=== PATIENT | female | born 1965 | race Caucasian/White ===

== ENCOUNTER 2020-02-05 10:53 | Emergency (ER) | payer MEDICARE, MEDICAID, SELFPAY ==
[2020-02-05 11:05] VITALS: BP 120/77; PULSE 95; RESP 18; TEMP 36.6; O2SAT 99; BMI 34.3
--- NOTE | 2020-02-05 11:25 | ED_ITS ---
HPI - General Adult General Chief complaint: General Medical Stated complaint: ?kidney pain Time Seen by Provider: 02/05/20 11:18 Source: patient Mode of arrival: ambulatory Limitations: no limitations History of Present Illness HPI narrative: 54 y/o female with history of poorly controlled DM on insulin, gastroparesis, depression, bipolar, anxiety, GERD, migraines presenting with foul smelling urine since yesterday and lower right sided back pain that started today. She is concerned about a kidney infection. She reports nausea and chronic diarrhea. No abdominal pain, no vomiting, no fever or chills at home. Related Data Previous Rx's Medication Instructions Recorded cefuroxime axetil 500 mg PO Q12H #14 tab 02/05/20 Allergies Allergy/AdvReac Type Severity Reaction Status Date / Time penicillin V Allergy Unknown Verified 10/08/19 00:00 Penicillins Allergy Unknown HIVES Unverified 01/03/20 15:42 Review of Systems Review of Systems: Constitutional: No Fever, No Chills ENT/Mouth: No sore throat, No Rhinorrhea, No Swallowing Difficulty Eyes: No Eye Pain, No Swelling, No Redness Cardiovascular: No Chest Pain, No SOB, No Orthopnea, No Edema Respiratory: No Cough, No Sputum, No Wheezing, No dyspnea Gastrointestinal: + Nausea, No Vomiting, + Diarrhea (chronically), No abdominal Pain, No Hematochezia, No Melena Genitourinary: + Dysuria, + Urinary Frequency, No Hematuria Musculoskeletal: No joint pain, + Myalgias (right back) Skin: No Skin Lesions, No rash Neuro: No Weakness, No Numbness, No Dizziness, No Headache Psych: No Anxiety/Panic, No Depression Heme/Lymph: No Bruising, No Lymphadenopathy Endocrine: + Polyuria, + Polydipsia [facility] [place] Past Medical History Attestation statement: The following information was validated with the patient. Medical History Anxiety Bipolar 1 disorder Depressed Diabetes 1.5, managed as type 1 Social History Social History Alcohol intake: never Smoking Status: Current every day smoker Substance Use Type: Marijuana Advance Directives: No Advance Directives Information Provided: No Physical Exam Vital Signs: Vital Signs: Vital Signs Temp Pulse Resp BP Pulse Ox 02/05/20 11:05 98 F 95 18 120/77 99 Body Mass Index 34.3 Appearance: Alert. Oriented X3. No acute distress. Eyes: Pupils equal, round and reactive to light. ENT: Pharynx normal. Neck: Normal inspection. Neck supple. CVS: Normal heart rate and rhythm. Pulses normal. Respiratory: No respiratory distress. Breath sounds normal. Abdomen: Soft and nontender. +BS x4 Back: +CVA tenderness on the right Skin: Skin warm and dry. Normal skin color. Normal skin turgor. No rashes. Extremities: No lower extremity edema. Neuro: Oriented X 3. No motor deficit. No sensory deficit. Course Course Course Narrative: patient appears well, non-toxic. she is afebrile. reporting foul smelling urine and low back pain. Possible pyelonephritis vs kidney stone with renal colic vs musculoskeletal pain of her back. UA shows UTI w/ hematuria. no leukocytosis. Renal U/S pending. IV rocephin ordered for now. No sepsis. Reevaluation(s) Reevaluation #1: U/S unremarkable. Rocephin given and tolerated well. Will give Rx for Ceftin. Stable for d/c home with plan to f/u with PCP this week. Medical Decision Making Lab Data Result diagrams: 02/05/20 11:36 02/05/20 11:36 Labs: Lab Results 02/05/20 02/05/20 02/05/20 Range/Units 11:12 11:36 11:36 WBC 10.0 (4.8-10.8) X10*3/uL RBC 4.28 (4.20-5.50) X10*6/uL Hgb 13.7 (12.0-16.0) g/dl Hct 40.9 (37-47) % MCV 95.6 (80-98) fL MCH 32.0 (27.0-33.0) pg MCHC 33.5 (31.0-35.0) g/dl RDW 12.3 (11.0-16.0) % Plt Count 195 (160-400) X10*3/uL MPV 12.1 (9.4-12.3) fL Immature Gran % (Auto) 0.4 (0.0-0.4) % Neut % (Auto) 62.8 (45-73) % Lymph % (Auto) 25.5 (20-40) % [place] % (Auto) 6.2 (2-11) % Eos % (Auto) 4.7 H (0-4) % Baso % (Auto) 0.4 (0-2) % Lymph # (Auto) 2.6 (1.2-4.9) X10*3/uL [place] # (Auto) 0.6 (0.1-1.2) X10*3/uL Eos # (Auto) 0.5 H (0.0-0.4) X10*3/uL Baso # (Auto) 0.0 (0.0-0.2) X10*3/uL Abs Immat Gran (auto) 0.04 H (0.00-0.03) X10*3/uL Absolute Neuts (auto) 6.3 (2.0-8.3) X10*3/uL Absolute Nucleated RBC 0.000 (0.0-0.012) X10*3/uL Nucleated RBC % (auto) 0.0 (0.0-0.2) /100WBC Sodium 134 L (135-145) mmol/L Potassium 4.1 (3.3-5.1) mmol/l Chloride 104 (96-108) mmol/L Carbon Dioxide 20 L (22-29) mmol/L Anion Gap 14 (12-20) BUN 15 (9-16) mg/dL Creatinine 0.93 (0.5-1.4) mg/dL Estim Creat Clear Calc 74.5 Estimated GFR > 60 Random Glucose 246 H (60-115) mg/dL Calcium 9.7 (8.4-10.2) mg/dL Total Bilirubin 0.3 (0.0-1.0) mg/dL Direct Bilirubin < 0.2 (0.0-0.5) mg/dL AST 19 (5-31) U/L ALT 19 (0-31) U/L Alkaline Phosphatase 110 (39-117) U/L Total Protein 7.2 (6.5-8.0) g/dL Albumin 3.8 (3.5-5.0) g/dL Urine Color YELLOW Urine Appearance HAZY Urine pH 5.5 (5.0-8.0) Ur Specific [place] >= 1.030 H (1.005-1.025) Urine Protein 1+ H (NEG-TRACE) MG/DL Urine Glucose (UA) NEG (NEG) MG/DL Urine Ketones NEG (NEG) MG/DL Urine Blood 2+ H (NEG) Urine Nitrite NEG (NEG) Ur Leukocyte Esterase 1+ H (NEG) Urine RBC 15-29 H (0) /HPF Urine WBC TNTC H (0-4) /HPF Ur Squamous Epith Cells 1+ /LPF Urine Bacteria 1+ /LPF Urine Mucus 1+ /LPF Discharge Plan Discharge Clinical Impression: Urinary tract infection Qualifiers: Urinary tract infection type: acute cystitis Hematuria presence: with hematuria Qualified Code(s): N30.01 - Acute cystitis with hematuria Patient Disposition: Home, Self-Care Instructions: Urinary Tract Infection in Women (ED) Additional Instructions: Stay hydrated. No sexual activity until all of your symptoms are resolved. If you develop increasing pain, fever, chills, persistent nausea or vomiting call 911 or come back to the ER for further evaluation. Follow up with your Primary Care Doctor this week. Prescriptions: New cefuroxime axetil 500 mg tablet 500 mg PO Q12H Qty: 14 RF: 0
--- NOTE | 2020-02-05 11:28 | US_ITS ---
EXAMINATION: US KIDNEYS CLINICAL INFORMATION: Right flank tenderness, dysuria. COMPARISON: Lumbar radiographs 05/13/2019, CT abdomen and pelvis with IV contrast 11/10/2018 TECHNIQUE: Real-time imaging of the right kidney as per request. FINDINGS: RIGHT KIDNEY: 11.9 x 3.9 x 6.7 cm (SAG x AP x TRV). There is normal renal parenchymal thickness and echogenicity. There is no hydronephrosis or caliectasis. No visible calculi. No perinephric fluid. There is a small cortical cyst medial mid to lower pole again seen measuring 1.4 cm, similar to CT 2019. IMPRESSION: 1. No right hydronephrosis or visible calculi. 2. Small cyst medial mid to lower pole 1.[address] 2019.
[2020-02-05 11:31] LABS: Glucose Urine UA NEG (NEG); Leukocyte Esterase Urine 1+ (NEG); Nitrite Urine NEG (NEG); PH 5.5 (5.0-8.0); Specific Gravity - Urine >= 1.030 (1.005-1.025); Urine Blood 2+ (NEG); Urine Ketones NEG (NEG); Urine Protein 1+ MG/DL (NEG-TRACE)
[2020-02-05] MEDS: 0.9 % Sodium Chloride 1,000 ML 999 ML IVCONT (11:37)
[2020-02-05 11:38] LABS: Appearance Urine HAZY; Color Urine YELLOW
[2020-02-05 11:42] LABS: MANUAL DIFF FLAG NO
[2020-02-05 11:43] LABS: Bacteria Urine 1+ /LPF; Mucus Urine 1+ /LPF; Squamous Epithelial Cell Urine 1+ /LPF; WBC Urine TNTC /HPF (0-4)
[2020-02-05 11:48] LABS: Basophils Percent Auto 0.4 % (0-2); Eosinophils Absolute Auto 0.5 X10*3/uL (0.0-0.4); Eosinophils Percent Auto 4.7 % (0-4); Hematocrit 40.9 % (37-47); Hemoglobin 13.7 g/dl (12.0-16.0); Imm Gran Abs Auto 0.04 X10*3/uL (0.00-0.03); Imm Gran Pct Auto 0.4 % (0.0-0.4); Lymphocytes Absolute Auto 2.6 X10*3/uL (1.2-4.9); Lymphocytes Percent Auto 25.5 % (20-40); Mean Corpuscular HGB Conc 33.5 g/dl (31.0-35.0); Mean Corpuscular Volume 95.6 fL (80-98); Mean Platelet Volume 12.1 fL (9.4-12.3); Monocytes Absolute Auto 0.6 X10*3/uL (0.1-1.2); Monocytes Percent Auto 6.2 % (2-11); Neutrophils Absolute Auto 6.3 X10*3/uL (2.0-8.3); Neutrophils Percent Auto 62.8 % (45-73); Platelet Count 195 X10*3/uL (160-400); Red Blood Count 4.28 X10*6/uL (4.20-5.50); Red Cell Distribution Width 12.3 % (11.0-16.0)
[2020-02-05] MEDS: Ketorolac Tromethamine 15 MG/ML VIAL IVPUSH (12:11)
[2020-02-05 12:12] LABS: Alanine Aminotransferase 19 U/L (0-31); Albumin Level 3.8 g/dL (3.5-5.0); Alkaline Phosphatase 110 U/L (39-117); Anion Gap 14 (12-20); Aspartate Amino Transferase 19 U/L (5-31); Bilirubin Direct < 0.2 mg/dL (0.0-0.5); Bilirubin Total 0.3 mg/dL (0.0-1.0); Blood Urea Nitrogen 15 mg/dL (9-16); Calcium 9.7 mg/dL (8.4-10.2); Carbon Dioxide 20 mmol/L (22-29); Chloride 104 mmol/L (96-108); Creatinine Clr Calc Pharmacy 74.5; Estimated Glomerular Filt Rate > 60; Glucose Random 246 mg/dL (60-115); Potassium 4.1 mmol/l (3.3-5.1); Sodium 134 mmol/L (135-145); Total Protein 7.2 g/dL (6.5-8.0)
[2020-02-05] MEDS: cefTRIAXone sodium 1 GM in 0.9 % Sodium Chloride 50 ML IV (12:12)
[2020-02-05 12:50] VITALS: BP 121/64; PULSE 78; RESP 17; O2SAT 98
== END 2020-02-05 12:51 | disposition home or self-care (01) ==
PROVIDERS: Physician Assistant; Emergency Provider Emergency Medicine; PCP Internal Medicine
DX: N30.01 Acute cystitis with hematuria (principal); E10.9 Type 1 diabetes mellitus without complications; F17.200 Nicotine dependence, unspecified, uncomplicated
CPT/HCPCS: 36415; 76775; 80048; 80076; 81001; 85025; 87086; 87088; 87186; 96361; 96365; 96374; 99284; J1885

== ENCOUNTER 2020-03-20 02:43 | Emergency (ER) | payer MEDICARE, MEDICAID, SELFPAY ==
[2020-03-20 02:49] VITALS: BP 142/80; BP 150/82; PULSE 81; PULSE 84; RESP 16; TEMP 36.8; O2SAT 98; BMI 36.0
--- NOTE | 2020-03-20 02:54 | ECG_ITS ---
Test Reason : NVD Blood Pressure : / mmHG Vent. Rate : 076 BPM Atrial Rate : 076 BPM P-R Int : 136 ms QRS Dur : 082 ms QT Int : 368 ms P-R-T Axes : 067 017 039 degrees QTc Int : 414 ms Sinus rhythm with occasional Premature ventricular complexes Otherwise normal ECG When compared with ECG of 07-SEP-2017 05:26, Premature ventricular complexes are now Present Referred By: Maame Barber Electronically Signed By:SUNITA ORTEGA MD
[2020-03-20 03:05] LABS: Glucose, Whole Blood 437 mg/dL (60-115)
[2020-03-20 03:25] LABS: MANUAL DIFF FLAG NO
[2020-03-20 03:30] LABS: Basophils Absolute Auto 0.1 X10*3/uL (0.0-0.2); Basophils Percent Auto 0.6 % (0-2); Eosinophils Absolute Auto 0.7 X10*3/uL (0.0-0.4); Eosinophils Percent Auto 6.6 % (0-4); Hematocrit 40.4 % (37-47); Hemoglobin 13.7 g/dl (12.0-16.0); Imm Gran Abs Auto 0.05 X10*3/uL (0.00-0.03); Imm Gran Pct Auto 0.5 % (0.0-0.4); Lymphocytes Absolute Auto 4.2 X10*3/uL (1.2-4.9); Lymphocytes Percent Auto 41.9 % (20-40); Mean Corpuscular HGB Conc 33.9 g/dl (31.0-35.0); Mean Corpuscular Volume 94.4 fL (80-98); Mean Platelet Volume 11.8 fL (9.4-12.3); Monocytes Absolute Auto 0.7 X10*3/uL (0.1-1.2); Monocytes Percent Auto 7.4 % (2-11); Neutrophils Absolute Auto 4.3 X10*3/uL (2.0-8.3); Platelet Count 224 X10*3/uL (160-400); Red Blood Count 4.28 X10*6/uL (4.20-5.50); Red Cell Distribution Width 12.4 % (11.0-16.0); White Blood Count 9.9 X10*3/uL (4.8-10.8)
[2020-03-20 03:46] LABS: Acetone, serum QL Negative (Negative)
[2020-03-20] MEDS: Acetaminophen 325 MG TABLET 975 MG PO (03:54)
[2020-03-20] MEDS: 0.9 % Sodium Chloride 2,000 ML 999 ML IV (03:55)
[2020-03-20 04:00] VITALS: PULSE 73; O2SAT 97
[2020-03-20 04:00] LABS: Alanine Aminotransferase 18 U/L (0-31); Albumin Level 3.8 g/dL (3.5-5.0); Alkaline Phosphatase 158 U/L (39-117); Anion Gap 16 (12-20); Aspartate Amino Transferase 20 U/L (5-31); Bilirubin Total 0.3 mg/dL (0.0-1.0); Blood Urea Nitrogen 23 mg/dL (9-16); Calcium 10.2 mg/dL (8.4-10.2); Carbon Dioxide 23 mmol/L (22-29); Chloride 99 mmol/L (96-108); Creatinine Clr Calc Pharmacy 61.9; Estimated Glomerular Filt Rate 49; Glucose Random 471 mg/dL (60-115); Lipase 37 U/L (8-78); Potassium 4.8 mmol/l (3.3-5.1); Sodium 133 mmol/L (135-145); Total Protein 7.5 g/dL (6.5-8.0)
--- NOTE | 2020-03-20 04:48 | ED_ITS ---
HPI - Headache General Chief Complaint: Headache Stated Complaint: n/v Time Seen by Provider: 03/20/20 02:53 Source: patient Mode of arrival: ambulatory Limitations: no limitations History of Present Illness HPI Narrative: This is a 54-year-old female with significant history insulin dependent diabetes presents with complaints of nausea, headache, but denies shortness of breath, chest pain / palpitations, abdominal pain, diarrhea, fevers, chills, recent travel and states that she knows her sugar is high becaus e she has been peeing a lot and is very thirsty. Related Data Previous Rx's Medication Instructions Recorded cefuroxime axetil 500 mg PO Q12H #14 tab 02/05/20 ciprofloxacin HCl [Cipro] 500 mg PO Q12H 7 Days #14 tab 03/20/20 Allergies Allergy/AdvReac Type Severity Reaction Status Date / Time penicillin V Allergy Unknown Hives Verified 03/20/20 04:02 Penicillins Allergy Unknown HIVES Unverified 01/03/20 15:42 Review of Systems Review of Systems: Pertinent positives and negatives as stated in HPI 10 point review of systems otherwise negative. PMFSH Past Medical History Source: nursing notes reviewed Medical History Anxiety Bipolar 1 disorder Depressed Diabetes 1.5, managed as type 1 Surgical History History of dental surgery History of partial hysterectomy Social History Social History Alcohol intake: never Smoking Status: Never smoker Use of substances other than those prescribed or required for medical reasons: No Substance Use Type: Marijuana Advance Directives: No Physical Exam Vital Signs: Vital Signs: Last Vital Signs Temp 98.2 F 03/20/20 02:49 Pulse 73 03/20/20 04:00 Resp 16 03/20/20 02:49 BP 142/80 H 03/20/20 02:49 Pulse Ox 97 03/20/20 04:00 Body Mass Index 36.0 VITAL SIGNS: Reviewed. GENERAL: Well developed, well nourished, in no acute distress. HEAD: Normocephalic/atraumatic, EYES: PERRLA, EOMI intact without pain, no nystagmus/pallor/icterus noted EARS: Ext canals without abnormality, TMs non-bulging and non-erythematous NOSE: Nares patent bilateral OROPHARYNX: no oral lesions noted, posterior pharynx clear and non-erythematous without noted tonsillar enlargement/erythema/exudates NECK: Supple, no adenopathy LUNGS: Normal breath sounds. No adventitious sounds or accessory muscle use. SpO2<97> CARDIOVASCULAR: Regular rate and rhythm without noted murmurs, no JVD or lower extremity edema. ABDOMEN: Soft, non-tender, non-distended with bowel sounds. No rigidity. No guarding. No palpable masses or hernias noted MUSCULOSKELETAL: No tenderness, deformities, or effusions noted on gross inspection. EXTREMITIES: No cyanosis, clubbing or edema. SKIN: Inspection of the skin reveals no rashes, ulcerations, jaundice, pallor, or petechiae. NEUROLOGIC: Alert and oriented x 4. Strength and sensation to light touch were grossly intact x 4. Course Course Course Narrative: This is a 54-year-old female with history and clinical presentation consistent with hyperglycemia and will rule out DKA /HHS as well as identifying a source of infection. Headache was successfully treated with a combination of Tylenol, Toradol, and IV fluids. On review of all investigations there is no evidence of DKA and noted mild hyponatremia is pseudohyponatremia secondary to hyperglycemia and mild AVI will be treated with 2 L of IV fluid and patient has a noted UTI which will be treated with a dose IV antibiotics here in the emergency department and then discharge on remaining oral medication. Repeat glucose is 330 and headache is completely resolved. Patient acknowledges that she will need to treat her glucose levels as per her regimen. MDM - Headache Lab Data Result diagrams: 03/20/20 03:18 03/20/20 03:18 Labs: Lab Results 03/20/20 03/20/20 03/20/20 Range/Units 02:53 03:18 03:18 WBC 9.9 (4.8-10.8) X10*3/uL RBC 4.28 (4.20-5.50) X10*6/uL Hgb 13.7 (12.0-16.0) g/dl Hct 40.4 (37-47) % MCV 94.4 (80-98) fL MCH 32.0 (27.0-33.0) pg MCHC 33.9 (31.0-35.0) g/dl RDW 12.4 (11.0-16.0) % Plt Count 224 (160-400) X10*3/uL MPV 11.8 (9.4-12.3) fL Immature Gran % (Auto) 0.5 H (0.0-0.4) % Neut % (Auto) 43.0 L (45-73) % Lymph % (Auto) 41.9 H (20-40) % [place] % (Auto) 7.4 (2-11) % Eos % (Auto) 6.6 H (0-4) % Baso % (Auto) 0.6 (0-2) % Lymph # (Auto) 4.2 (1.2-4.9) X10*3/uL [place] # (Auto) 0.7 (0.1-1.2) X10*3/uL Eos # (Auto) 0.7 H (0.0-0.4) X10*3/uL Baso # (Auto) 0.1 (0.0-0.2) X10*3/uL Abs Immat Gran (auto) 0.05 H (0.00-0.03) X10*3/uL Absolute Neuts (auto) 4.3 (2.0-8.3) X10*3/uL Absolute Nucleated RBC 0.000 (0.0-0.012) X10*3/uL Nucleated RBC % (auto) 0.0 (0.0-0.2) /100WBC Sodium 133 L (135-145) mmol/L Potassium 4.8 (3.3-5.1) mmol/l Chloride 99 (96-108) mmol/L Carbon Dioxide 23 (22-29) mmol/L Anion Gap 16 (12-20) BUN 23 H D (9-16) mg/dL Creatinine 1.15 (0.5-1.4) mg/dL Estim Creat Clear Calc 61.9 Estimated GFR 49 POC Glucose 437 H* (60-115) mg/dL Random Glucose 471 H* (60-115) mg/dL Calcium 10.2 (8.4-10.2) mg/dL Total Bilirubin 0.3 (0.0-1.0) mg/dL AST 20 (5-31) U/L ALT 18 (0-31) U/L Alkaline Phosphatase 158 H D (39-117) U/L Total Protein 7.5 (6.5-8.0) g/dL Albumin 3.8 (3.5-5.0) g/dL Lipase 37 (8-78) U/L Acetone, Qual Negative (Negative) 03/20/20 Range/Units 06:23 WBC (4.8-10.8) X10*3/uL RBC (4.20-5.50) X10*6/uL Hgb (12.0-16.0) g/dl Hct (37-47) % MCV (80-98) fL MCH (27.0-33.0) pg MCHC (31.0-35.0) g/dl RDW (11.0-16.0) % Plt Count (160-400) X10*3/uL MPV (9.4-12.3) fL Immature Gran % (Auto) (0.0-0.4) % Neut % (Auto) (45-73) % Lymph % (Auto) (20-40) % [place] % (Auto) (2-11) % Eos % (Auto) (0-4) % Baso % (Auto) (0-2) % Lymph # (Auto) (1.2-4.9) X10*3/uL [place] # (Auto) (0.1-1.2) X10*3/uL Eos # (Auto) (0.0-0.4) X10*3/uL Baso # (Auto) (0.0-0.2) X10*3/uL Abs Immat Gran (auto) (0.00-0.03) X10*3/uL Absolute Neuts (auto) (2.0-8.3) X10*3/uL Absolute Nucleated RBC (0.0-0.012) X10*3/uL Nucleated RBC % (auto) (0.0-0.2) /100WBC Sodium (135-145) mmol/L Potassium (3.3-5.1) mmol/l Chloride (96-108) mmol/L Carbon Dioxide (22-29) mmol/L Anion Gap (12-20) BUN (9-16) mg/dL Creatinine (0.5-1.4) mg/dL Estim Creat Clear Calc Estimated GFR POC Glucose 330 H (60-115) mg/dL Random Glucose (60-115) mg/dL Calcium (8.4-10.2) mg/dL Total Bilirubin (0.0-1.0) mg/dL AST (5-31) U/L ALT (0-31) U/L Alkaline Phosphatase (39-117) U/L Total Protein (6.5-8.0) g/dL Albumin (3.5-5.0) g/dL Lipase (8-78) U/L Acetone, Qual (Negative) ECG Data Attestation: I personally reviewed and interpreted this ECG as follows: Prior ECG tracings: not available for review Interpretation: Sinus rhythm with occasional PVC, HR - 76, no evidence of acute ischemia, OR/QRS/ QTC is within normal limits. Discharge Plan Discharge Clinical Impression: Hyperglycemia Headache Qualifiers: Headache type: unspecified Headache chronicity pattern: unspecified pattern Intractability: not intractable Qualified Code(s): R51.9 - Headache, unspecified UTI (urinary tract infection) Qualifiers: Urinary tract infection type: site unspecified Hematuria presence: with hematuria Qualified Code(s): N39.0 - Urinary tract infection, site not specified Patient Disposition: Home, Self-Care Instructions: Urinary Tract Infection in Women (ED), Diabetic Hyperglycemia (ED), General Headache (ED) Additional Instructions: 1. resume all home medications as prescribed. 2. Increase fluid hydration especially with water. 3. Tylenol 1000 mg, orally, every 6 hours as needed for headache control. Do not exceed 4000 mg within 24 hours. 4. please follow-up with your primary care provider by calling their office this morning and establishing an appointment. Prescriptions: New ciprofloxacin HCl [Cipro] 500 mg tablet 500 mg PO Q12H 7 Days Qty: 14 RF: 0 No Action cefuroxime axetil 500 mg tablet 500 mg PO Q12H Qty: 14 RF: 0 Referrals: Physician,Unknown [Primary Care Provider] - 2 days ( for re-evaluation of hyperglycemia and UTI.)
[2020-03-20] MEDS: Ketorolac Tromethamine 15 MG/ML VIAL IVPUSH (05:45)
[2020-03-20] MEDS: cefTRIAXone sodium 1 GM in 0.9 % Sodium Chloride 50 ML IV (05:45)
[2020-03-20 06:27] LABS: Glucose, Whole Blood 330 mg/dL (60-115)
[2020-03-20 06:45] VITALS: BP 131/64; PULSE 67; RESP 16; O2SAT 98
== END 2020-03-20 06:46 | disposition home or self-care (01) ==
PROVIDERS: Emergency Provider Student in an Organized Health Care Education/Training Program
DX: E10.65 Type 1 diabetes mellitus with hyperglycemia (principal); R51.9 Headache, unspecified; N39.0 Urinary tract infection, site not specified; R31.9 Hematuria, unspecified; Z79.4 Long term (current) use of insulin
CPT/HCPCS: 36415; 80053; 82009; 82947; 83690; 85025; 93005; 96361; 96365; 96375; 99284; J0696; J1885

== ENCOUNTER 2020-08-30 15:18 | Emergency (ER) | payer MEDICARE, MEDICAID, SELFPAY ==
[2020-08-30 15:29] VITALS: BP 131/67; PULSE 112; RESP 18; TEMP 36.9; O2SAT 99; BMI 34.3
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
--- NOTE | 2020-08-30 16:30 | PC.NURSE ---
iv removed from ems- 20g l hand, new one placed 20g r ac
[2020-08-30 16:34] LABS: Basophils Percent Auto 0.4 % (0-2); Eosinophils Absolute Auto 0.2 X10*3/uL (0.0-0.4); Eosinophils Percent Auto 2.1 % (0-4); Hematocrit 37.3 % (37-47); Hemoglobin 12.6 g/dl (12.0-16.0); Imm Gran Abs Auto 0.04 X10*3/uL (0.00-0.03); Imm Gran Pct Auto 0.5 % (0.0-0.4); Lymphocytes Absolute Auto 1.9 X10*3/uL (1.2-4.9); Lymphocytes Percent Auto 22.8 % (20-40); MANUAL DIFF FLAG NO; Mean Corpuscular HGB Conc 33.8 g/dl (31.0-35.0); Mean Corpuscular Hemoglobin 32.1 pg (27.0-33.0); Mean Corpuscular Volume 94.9 fL (80-98); Mean Platelet Volume 11.5 fL (9.4-12.3); Monocytes Absolute Auto 0.8 X10*3/uL (0.1-1.2); Monocytes Percent Auto 9.6 % (2-11); Neutrophils Absolute Auto 5.5 X10*3/uL (2.0-8.3); Neutrophils Percent Auto 64.6 % (45-73); Platelet Count 175 X10*3/uL (160-400); Red Blood Count 3.93 X10*6/uL (4.20-5.50); Red Cell Distribution Width 12.5 % (11.0-16.0); White Blood Count 8.5 X10*3/uL (4.8-10.8)
[2020-08-30 16:38] LABS: VBG Base Excess -5.1 mmol/L; VBG HCO3 20 mmol/L (22-26); VBG pCO2 38 mmHg; VBG pH 7.32 (7.32-7.43); VBG pO2 74 mmHg
[2020-08-30 16:40] LABS: Venous Blood Gas Refer to POC result
[2020-08-30 17:02] LABS: Ethanol < 10 mg/dL
[2020-08-30 17:12] LABS: Acetaminophen LAB < 1 mcg/mL (<30); Alanine Aminotransferase 15 U/L (0-31); Albumin Level 3.4 g/dL (3.5-5.0); Alkaline Phosphatase 140 U/L (39-117); Anion Gap 14 (12-20); Aspartate Amino Transferase 12 U/L (5-31); Bilirubin Total 0.3 mg/dL (0.0-1.0); Blood Urea Nitrogen 29 mg/dL (9-16); Calcium 9.5 mg/dL (8.4-10.2); Carbon Dioxide 20 mmol/L (22-29); Chloride 102 mmol/L (96-108); Creatinine Clr Calc Pharmacy 43.6; Estimated Glomerular Filt Rate 34; Glucose Random 533 mg/dL (60-115); Potassium 4.4 mmol/L (3.3-5.1); Salicylate < 5.0 mg/dL (15-30); Sodium 132 mmol/L (135-145); Total Protein 6.4 g/dL (6.5-8.0)
--- NOTE | 2020-08-30 18:09 | PC.NURSE ---
cynthia wilson made aware of med orders, plan to change orders.
[2020-08-30] MEDS: LORazepam 2 MG/ML VIAL 1 MG IVPUSH (18:17)
[2020-08-30] MEDS: Acetaminophen 325 MG TABLET 650 MG PO (18:17)
--- NOTE | 2020-08-30 18:18 | PC.NURSE ---
medicated per emar. hold lr and subcut insulin per regional agronomist katie. new order for ns and insulin subcut and iv to be orderd.
--- NOTE | 2020-08-30 18:21 | ED_ITS ---
HPI - General Adult General Chief complaint: General Medical Stated complaint: hyperglycemia Time Seen by Provider: 08/30/20 16:00 Source: patient Mode of arrival: EMS (Escorted by [place] [employer]) Limitations: no limitations Related Data Home Medications Medication Instructions Recorded Confirmed amitriptyline 50 mg PO BEDTIME 08/30/20 08/30/20 insulin aspart U-100 [Novolog 14 unit SUBCUT TID 08/30/20 08/30/20 Flexpen U-100 Insulin] insulin glargine [Lantus Solostar SUBCUT 08/30/20 U-100 Insulin] venlafaxine 75 mg PO BID 08/30/20 08/30/20 Allergies Allergy/AdvReac Type Severity Reaction Status Date / Time penicillin V Allergy Unknown Hives Verified 03/20/20 04:02 Penicillins Allergy Unknown HIVES Unverified 01/03/20 15:42 [facility] Past Medical History Medical History Anxiety Bipolar 1 disorder Depressed Diabetes 1.5, managed as type 1 Surgical History History of dental surgery History of partial hysterectomy Social History Social History Alcohol intake: never Smoking Status: Never smoker Use of substances other than those prescribed or required for medical reasons: No Substance Use Type: Marijuana Advance Directives: No Advance Directives Information Provided: No Patient : No Physical Exam Vital Signs: Vital Signs: Last Vital Signs Temp 98.4 F 08/30/20 15:29 Pulse 112 H 08/30/20 15:29 Resp 18 08/30/20 19:28 BP 131/67 08/30/20 15:29 Pulse Ox 99 08/30/20 15:29 Body Mass Index 34.3 Course Course Course Narrative: Sign-out from Aline Nice please refer to her note for full H&P. Patient's blood sugar is 533, I did cancel the 5 units subQ and ordered 10 units IV and 10 units subcu with a L of fluids. Will repeat POC. Corrected sodium is 139 based on a blood sugar of 533. 8:25 p.m. POC 192, patient is medically cleared for BHN consult. 12:24 a.m. physician observation started. BHN consult pending. Repeat BNP pending. Medical Decision Making Lab Data Result diagrams: 08/30/20 16:28 08/30/20 16:28 Labs: Lab Results 08/30/20 08/30/20 08/30/20 Range/Units 16:28 16:28 16:28 WBC 8.5 (4.8-10.8) X10*3/uL RBC 3.93 L (4.20-5.50) X10*6/uL Hgb 12.6 (12.0-16.0) g/dl Hct 37.3 (37-47) % MCV 94.9 (80-98) fL MCH 32.1 (27.0-33.0) pg MCHC 33.8 (31.0-35.0) g/dl RDW 12.5 (11.0-16.0) % Plt Count 175 (160-400) X10*3/uL MPV 11.5 (9.4-12.3) fL Immature Gran % (Auto) 0.5 H (0.0-0.4) % Neut % (Auto) 64.6 (45-73) % Lymph % (Auto) 22.8 (20-40) % [place] % (Auto) 9.6 (2-11) % Eos % (Auto) 2.1 (0-4) % Baso % (Auto) 0.4 (0-2) % Lymph # (Auto) 1.9 (1.2-4.9) X10*3/uL [place] # (Auto) 0.8 (0.1-1.2) X10*3/uL Eos # (Auto) 0.2 (0.0-0.4) X10*3/uL Baso # (Auto) 0.0 (0.0-0.2) X10*3/uL Abs Immat Gran (auto) 0.04 H (0.00-0.03) X10*3/uL Absolute Neuts (auto) 5.5 (2.0-8.3) X10*3/uL Absolute Nucleated RBC 0.000 (0.0-0.012) X10*3/uL Nucleated RBC % (auto) 0.0 (0.0-0.2) /100WBC VBG pH (7.32-7.43) VBG pCO2 mmHg VBG pO2 mmHg VBG HCO3 (22-26) mmol/L VBG O2 Saturation % VBG Base Excess mmol/L Sodium 132 L (135-145) mmol/L Potassium 4.4 (3.3-5.1) mmol/L Chloride 102 (96-108) mmol/L Carbon Dioxide 20 L (22-29) mmol/L Anion Gap 14 (12-20) BUN 29 H (9-16) mg/dL Creatinine 1.59 H (0.5-1.4) mg/dL Estim Creat Clear Calc 43.6 Estimated GFR 34 POC Glucose (60-115) mg/dL Random Glucose 533 H* (60-115) mg/dL Calcium 9.5 D (8.4-10.2) mg/dL Total Bilirubin 0.3 (0.0-1.0) mg/dL AST 12 (5-31) U/L ALT 15 (0-31) U/L Alkaline Phosphatase 140 H (39-117) U/L Total Protein 6.4 L (6.5-8.0) g/dL Albumin 3.4 L (3.5-5.0) g/dL Salicylates < 5.0 L (15-30) mg/dL Acetaminophen < 1 (<30) mcg/mL Ethyl Alcohol < 10 mg/dL 08/30/20 08/30/20 08/30/20 Range/Units 16:28 16:31 20:25 WBC (4.8-10.8) X10*3/uL RBC (4.20-5.50) X10*6/uL Hgb (12.0-16.0) g/dl Hct (37-47) % MCV (80-98) fL MCH (27.0-33.0) pg MCHC (31.0-35.0) g/dl RDW (11.0-16.0) % Plt Count (160-400) X10*3/uL MPV (9.4-12.3) fL Immature Gran % (Auto) (0.0-0.4) % Neut % (Auto) (45-73) % Lymph % (Auto) (20-40) % [place] % (Auto) (2-11) % Eos % (Auto) (0-4) % Baso % (Auto) (0-2) % Lymph # (Auto) (1.2-4.9) X10*3/uL [place] # (Auto) (0.1-1.2) X10*3/uL Eos # (Auto) (0.0-0.4) X10*3/uL Baso # (Auto) (0.0-0.2) X10*3/uL Abs Immat Gran (auto) (0.00-0.03) X10*3/uL Absolute Neuts (auto) (2.0-8.3) X10*3/uL Absolute Nucleated RBC (0.0-0.012) X10*3/uL Nucleated RBC % (auto) (0.0-0.2) /100WBC VBG pH 7.32 (7.32-7.43) VBG pCO2 38 mmHg VBG pO2 74 mmHg VBG HCO3 20 L (22-26) mmol/L VBG O2 Saturation 93.0 % VBG Base Excess -5.1 mmol/L Sodium Cancelled (135-145) mmol/L Potassium Cancelled (3.3-5.1) mmol/L Chloride Cancelled (96-108) mmol/L Carbon Dioxide Cancelled (22-29) mmol/L Anion Gap Cancelled (12-20) BUN Cancelled (9-16) mg/dL Creatinine Cancelled (0.5-1.4) mg/dL Estim Creat Clear Calc Cancelled Estimated GFR Cancelled POC Glucose 192 H (60-115) mg/dL Random Glucose Cancelled (60-115) mg/dL Calcium Cancelled (8.4-10.2) mg/dL Total Bilirubin (0.0-1.0) mg/dL AST (5-31) U/L ALT (0-31) U/L Alkaline Phosphatase (39-117) U/L Total Protein (6.5-8.0) g/dL Albumin (3.5-5.0) g/dL Salicylates (15-30) mg/dL Acetaminophen (<30) mcg/mL Ethyl Alcohol mg/dL 08/31/20 Range/Units 01:06 WBC (4.8-10.8) X10*3/uL RBC (4.20-5.50) X10*6/uL Hgb (12.0-16.0) g/dl Hct (37-47) % MCV (80-98) fL MCH (27.0-33.0) pg MCHC (31.0-35.0) g/dl RDW (11.0-16.0) % Plt Count (160-400) X10*3/uL MPV (9.4-12.3) fL Immature Gran % (Auto) (0.0-0.4) % Neut % (Auto) (45-73) % Lymph % (Auto) (20-40) % [place] % (Auto) (2-11) % Eos % (Auto) (0-4) % Baso % (Auto) (0-2) % Lymph # (Auto) (1.2-4.9) X10*3/uL [place] # (Auto) (0.1-1.2) X10*3/uL Eos # (Auto) (0.0-0.4) X10*3/uL Baso # (Auto) (0.0-0.2) X10*3/uL Abs Immat Gran (auto) (0.00-0.03) X10*3/uL Absolute Neuts (auto) (2.0-8.3) X10*3/uL Absolute Nucleated RBC (0.0-0.012) X10*3/uL Nucleated RBC % (auto) (0.0-0.2) /100WBC VBG pH (7.32-7.43) VBG pCO2 mmHg VBG pO2 mmHg VBG HCO3 (22-26) mmol/L VBG O2 Saturation % VBG Base Excess mmol/L Sodium (135-145) mmol/L Potassium (3.3-5.1) mmol/L Chloride (96-108) mmol/L Carbon Dioxide (22-29) mmol/L Anion Gap (12-20) BUN (9-16) mg/dL Creatinine (0.5-1.4) mg/dL Estim Creat Clear Calc Estimated GFR POC Glucose 152 H (60-115) mg/dL Random Glucose (60-115) mg/dL Calcium (8.4-10.2) mg/dL Total Bilirubin (0.0-1.0) mg/dL AST (5-31) U/L ALT (0-31) U/L Alkaline Phosphatase (39-117) U/L Total Protein (6.5-8.0) g/dL Albumin (3.5-5.0) g/dL Salicylates (15-30) mg/dL Acetaminophen (<30) mcg/mL Ethyl Alcohol mg/dL Discharge Plan Discharge Clinical Impression: Suicidal ideation, AVI (acute kidney injury), Hyperglycemia Prescriptions: No Action venlafaxine 75 mg capsule,extended release 24hr 75 mg PO BID RF: 0 amitriptyline 50 mg tablet 50 mg PO BEDTIME RF: 0 insulin aspart U-100 [Novolog Flexpen U-100 Insulin] 100 unit/mL (3 mL) i nsulin pen 14 unit subcut TID RF: 0 Lantus Solostar U-100 Insulin 100 unit/mL (3 mL) insulin pen subcut RF: 0
[2020-08-30] MEDS: Insulin Regular, Human 100 UNIT/ML 3 ML VIAL 10 UNIT IVPUSH (18:39)
[2020-08-30] MEDS: Insulin Regular, Human 100 UNIT/ML 3 ML VIAL 10 UNIT SUBCUT (18:39)
[2020-08-30] MEDS: 0.9 % Sodium Chloride 1,000 ML 999 ML IVCONT (18:39)
[2020-08-30 19:28] VITALS: RESP 18
[2020-08-30 20:31] LABS: Glucose, Whole Blood 192 mg/dL (60-115)
[2020-08-31] VITALS: BP 132/72; PULSE 87; RESP 16; TEMP 36.6; O2SAT 98
[2020-08-31 01:11] LABS: Glucose, Whole Blood 152 mg/dL (60-115)
[2020-08-31] MEDS: Venlafaxine HCl ER 75 MG CAP.ER.24H PO ×2 (01:58→08:24)
[2020-08-31] MEDS: 0.9 % Sodium Chloride 1,000 ML 999 ML IVCONT (01:58)
[2020-08-31] MEDS: Amitriptyline HCl 50 MG TABLET PO (01:58)
--- NOTE | 2020-08-31 02:00 | PC.NURSE ---
POC Glucose 152. Pt requested and given turkey sandwich, diet mattie guicho, and coffee. Pt is calm/cooperative/pleasant.
--- NOTE | 2020-08-31 02:30 | PC.NURSE ---
Per [facility] Law, BMP to be drawn after complete infusion of Normal Saline.
--- NOTE | 2020-08-31 03:45 | PC.NURSE ---
Normal saline infusing, but slowly. IV access is functional, but positional. Plan for repeat BMP upon fluids being infused.
[2020-08-31 05:45] LABS: Anion Gap 9 (12-20); Blood Urea Nitrogen 19 mg/dL (9-16); Calcium 8.8 mg/dL (8.4-10.2); Carbon Dioxide 23 mmol/L (22-29); Chloride 110 mmol/L (96-108); Creatinine Clr Calc Pharmacy 79.6; Estimated Glomerular Filt Rate > 60; Glucose Random 220 mg/dL (60-115); Potassium 4.3 mmol/L (3.3-5.1); Sodium 138 mmol/L (135-145)
[2020-08-31 07:31] LABS: Glucose, Whole Blood 198 mg/dL (60-115)
[2020-08-31] MEDS: Insulin Lispro 100 UNIT/ML 3 ML VIAL 14 UNIT SUBCUT ×2 (08:24→16:16)
[2020-08-31 08:30] VITALS: BP 110/60; PULSE 82; RESP 18; O2SAT 96
[2020-08-31 10:19] LABS: Glucose, Whole Blood 222 mg/dL (60-115)
[2020-08-31 10:24] VITALS: BP 126/66; PULSE 86; RESP 17; O2SAT 98
[2020-08-31 13:39] LABS: Amphetamine Screen Urine Not Detected (Not Detect); Barbiturates, Urine Not Detected (Not Detect); Benzodiazepines Screen Urine Not Detected (Not Detect); Cannabinoid Screen Urine Not Detected (Not Detect); Cocaine Screen Urine POSITIVE (Not Detect); Opiate Screen Urine Not Detected (Not Detect); Phencyclidine Screen Urine Not Detected (Not Detect)
[2020-08-31 14:29] LABS: Glucose, Whole Blood 229 mg/dL (60-115)
--- NOTE | 2020-08-31 15:28 | PC.NURSE ---
bhn at bedside.
== END 2020-08-31 18:41 | disposition home or self-care (01) ==
PROVIDERS: Nurse Practitioner Family; Physician Assistant; Emergency Provider Emergency Medicine; PCP Internal Medicine
DX: R45.851 Suicidal ideations (principal); E10.65 Type 1 diabetes mellitus with hyperglycemia; N17.9 Acute kidney failure, unspecified; F41.9 Anxiety disorder, unspecified; F32.9 Major depressive disorder, single episode, unspecified; F14.90 Cocaine use, unspecified, uncomplicated; F12.90 Cannabis use, unspecified, uncomplicated; Z79.4 Long term (current) use of insulin; Z79.899 Other long term (current) drug therapy
CPT/HCPCS: 36415; 80048; 80053; 80143; 80179; 80307; 80320; 82947; 85025; 96360; 96361; 96374; 96375; 99285; J2060

== ENCOUNTER 2020-09-17 19:11 | Outpatient (REF) | payer MEDICARE, MEDICAID, SELFPAY ==
--- NOTE | ~2020-09-17 | MR_ITS ---
EXAMINATION: MR LUMBAR SPINE WITHOUT CONTRAST CLINICAL INFORMATION: Radiculopathy. COMPARISON: None TECHNIQUE: MRI of the lumbar spine was obtained using routine sequences without contrast. FINDINGS: There is transitional lumbosacral anatomy with hypoplastic disc seen at L5-S1. The L5-S1 disc is seen on axial T2 series 5 image 33/35. The lumbar vertebral bodies maintain normal heights and alignment. There is disc desiccation at L3-L4 L4-L5 without significant disc height loss. No subchondral marrow edema is seen. The distal spinal cord appears normal. The conus medullaris terminates normally at the L1 level. The extraspinal soft tissues are within normal limits. SPINAL LEVELS: L1-L2: No posterior disc abnormality. No spinal canal or neural foraminal stenosis. L2-L3: No posterior disc abnormality. Moderate facet arthropathy. No spinal canal or neural foraminal stenosis. L3-L4: Disc bulging with moderate to severe facet arthropathy. Mild spinal canal stenosis. Mild bilateral neural foraminal stenosis with bulging disc seen abutting the exiting left L3 nerve root. L4-L5: Disc bulging with annular fissuring and moderate to severe facet arthropathy. Right subarticular stenosis. Right foraminal protrusion results in compression of the exiting right L4 nerve root. No left-sided nerve root compression. L5-S1: Hypoplastic disc. Disc bulging with osteophytic ridging with abutment of both extraforaminal L5 nerve root segments. 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 At L4-L5 there is right foraminal protrusion causing compression of the exiting right L4 nerve root. At L3-L4 there is mild bilateral neural foraminal stenosis with abutment of the exiting left L3 nerve root.
== END 2020-09-17 19:12 | disposition home or self-care (01) ==
LOC: HO.MRI 19:11
PROVIDERS: Visit Provider Internal Medicine
DX: M54.16 Radiculopathy, lumbar region (principal)
CPT/HCPCS: 72148

== ENCOUNTER 2020-10-26 03:47 | Emergency (ER) | payer MEDICARE, MEDICAID, SELFPAY ==
[2020-10-26 03:53] VITALS: BP 133/62; BP 136/84; PULSE 70; PULSE 90; RESP 18; TEMP 36.9; O2SAT 96; BMI 33.5
[2020-10-26 04:07] LABS: Glucose, Whole Blood 406 mg/dL (60-115)
--- NOTE | 2020-10-26 05:17 | ED.GENADULT ---
HPI - General Adult General Chief complaint: General Medical Stated complaint: hyperglycemia Time Seen by Provider: 10/26/20 05:05 History of Present Illness HPI narrative: 55-year-old female long history of diabetes currently on Lantus insulin 75 units Q evening. Also on regular insulin 14 units 3 times a day. Presented today with having elevated sugar in the 400 range. Patient denies any chest pain any diaphoresis any nausea any vomiting. Does have bilateral leg pain which is chronic in nature. Has a history of neuropathy. No chest pain. No coughing or congestion or upper respiratory symptoms. No pain on urination. Patient is from home. Last medication adjustment was made about 1 week ago at the time her insulin was changed from 65 units of Lantus q. evening to 75 units Q evening Related Data Home Medications Medication Instructions Recorded Confirmed amitriptyline 50 mg PO BEDTIME 08/30/20 08/30/20 insulin aspart U-100 [Novolog 14 unit SUBCUT TID 08/30/20 08/30/20 Flexpen U-100 Insulin] insulin glargine [Lantus Solostar SUBCUT 08/30/20 U-100 Insulin] venlafaxine 75 mg PO BID 08/30/20 08/30/20 Allergies Allergy/AdvReac Type Severity Reaction Status Date / Time penicillin V Allergy Unknown Hives Verified 08/31/20 04:40 Penicillins Allergy Unknown HIVES Verified 08/31/20 04:40 Review of Systems Review of Systems: Positive generalized malaise no chest pain or shortness breath no diaphoresis. Positive increased urinary frequency Yes all other systems are reviewed and are negative [facility] Past Medical History Attestation statement: The following information was validated with the patient. Medical History Anxiety Bipolar 1 disorder Depressed Diabetes 1.5, managed as type 1 Surgical History History of dental surgery History of partial hysterectomy Social History Social History Alcohol intake: never Substance Use Type: Marijuana Advance Directives: No Patient : No Physical Exam Vital Signs: Vital Signs: Last Vital Signs Temp 98.5 F 10/26/20 03:53 Pulse 67 10/26/20 05:32 Resp 18 10/26/20 05:32 BP 117/63 10/26/20 05:32 Pulse Ox 97 10/26/20 05:32 Body Mass Index 33.5 Appearance: Alert. Oriented X3. No acute distress. Eyes: Pupils equal, round and reactive to light. ENT: Pharynx normal. Neck: Normal inspection. Neck supple. No lymph nodes noted. No crepitus CVS: Normal heart rate and rhythm. Pulses normal. Normal S1 and S2 Respiratory: No respiratory distress. Breath sounds normal. No Wheezing. No rales Abdomen: Soft and nontender. No rigidity. No distention. good BS x4 Skin: Skin warm and dry. Normal skin color. Normal skin turgor. Extremities: No lower extremity edema. Neurovascular intact to all extremities. No Lacerations. No Rash Neuro: Oriented X 3. No motor deficit. No sensory deficit. Moving all extermities. No slurred speech Medical Decision Making MDM Narrative Medical decision making narrative: Patient's sugar over 400. Will give insulin, IV fluid. And monitor patient. Patient electrolytes did not show any evidence of diabetic ketoacidosis acetone was negative. Patient well appearing. Will discharge patient home when sugars down. Patient asked to take a very strict diabetic diet. Closely follow-up with primary on an outpatient basis. In stable condition. Lab Data Result diagrams: 10/26/20 05:41 10/26/20 05:41 Labs: Lab Results 10/26/20 10/26/20 10/26/20 Range/Units 04:02 05:40 05:41 WBC 8.2 (4.8-10.8) X10*3/uL RBC 4.19 L (4.20-5.50) X10*6/uL Hgb 13.4 (12.0-16.0) g/dl Hct 39.9 (37-47) % MCV 95.2 (80-98) fL MCH 32.0 (27.0-33.0) pg MCHC 33.6 (31.0-35.0) g/dl RDW 12.3 (11.0-16.0) % Plt Count 188 (160-400) X10*3/uL MPV 11.7 (9.4-12.3) fL Immature Gran % (Auto) 0.4 (0.0-0.4) % Neut % (Auto) 37.3 L (45-73) % Lymph % (Auto) 49.2 H (20-40) % [place] % (Auto) 7.6 (2-11) % Eos % (Auto) 5.0 H (0-4) % Baso % (Auto) 0.5 (0-2) % Lymph # (Auto) 4.0 (1.2-4.9) X10*3/uL [place] # (Auto) 0.6 (0.1-1.2) X10*3/uL Eos # (Auto) 0.4 (0.0-0.4) X10*3/uL Baso # (Auto) 0.0 (0.0-0.2) X10*3/uL Abs Immat Gran (auto) 0.03 (0.00-0.03) X10*3/uL Absolute Neuts (auto) 3.1 (2.0-8.3) X10*3/uL Absolute Nucleated RBC 0.000 (0.0-0.012) X10*3/uL Nucleated RBC % (auto) 0.0 (0.0-0.2) /100WBC VBG pH 7.39 (7.32-7.43) VBG pCO2 34 mmHg VBG pO2 112 mmHg VBG HCO3 21 L (22-26) mmol/L VBG O2 Saturation 99.0 % VBG Base Excess -2.9 mmol/L Sodium (135-145) mmol/L Potassium (3.3-5.1) mmol/L Chloride (96-108) mmol/L Carbon Dioxide (22-29) mmol/L Anion Gap (12-20) BUN (9-16) mg/dL Creatinine (0.5-1.4) mg/dL Estim Creat Clear Calc Estimated GFR POC Glucose 406 H* (60-115) mg/dL Random Glucose (60-115) mg/dL Calcium (8.4-10.2) mg/dL Total Bilirubin (0.0-1.0) mg/dL Direct Bilirubin (0.0-0.5) mg/dL AST (5-31) U/L ALT (0-31) U/L Alkaline Phosphatase (39-117) U/L Total Protein (6.5-8.0) g/dL Albumin (3.5-5.0) g/dL Acetone, Qual (Negative) 10/26/20 10/26/20 10/26/20 Range/Units 05:41 05:41 05:41 WBC (4.8-10.8) X10*3/uL RBC (4.20-5.50) X10*6/uL Hgb (12.0-16.0) g/dl Hct (37-47) % MCV (80-98) fL MCH (27.0-33.0) pg MCHC (31.0-35.0) g/dl RDW (11.0-16.0) % Plt Count (160-400) X10*3/uL MPV (9.4-12.3) fL Immature Gran % (Auto) (0.0-0.4) % Neut % (Auto) (45-73) % Lymph % (Auto) (20-40) % [place] % (Auto) (2-11) % Eos % (Auto) (0-4) % Baso % (Auto) (0-2) % Lymph # (Auto) (1.2-4.9) X10*3/uL [place] # (Auto) (0.1-1.2) X10*3/uL Eos # (Auto) (0.0-0.4) X10*3/uL Baso # (Auto) (0.0-0.2) X10*3/uL Abs Immat Gran (auto) (0.00-0.03) X10*3/uL Absolute Neuts (auto) (2.0-8.3) X10*3/uL Absolute Nucleated RBC (0.0-0.012) X10*3/uL Nucleated RBC % (auto) (0.0-0.2) /100WBC VBG pH (7.32-7.43) VBG pCO2 mmHg VBG pO2 mmHg VBG HCO3 (22-26) mmol/L VBG O2 Saturation % VBG Base Excess mmol/L Sodium 135 (135-145) mmol/L Potassium 4.1 (3.3-5.1) mmol/L Chloride 102 (96-108) mmol/L Carbon Dioxide 24 (22-29) mmol/L Anion Gap 13 (12-20) BUN 21 H (9-16) mg/dL Creatinine 1.08 (0.5-1.4) mg/dL Estim Creat Clear Calc 62.6 Estimated GFR 52 POC Glucose (60-115) mg/dL Random Glucose 433 H* (60-115) mg/dL Calcium 10.1 D (8.4-10.2) mg/dL Total Bilirubin 0.3 (0.0-1.0) mg/dL Direct Bilirubin < 0.2 (0.0-0.5) mg/dL AST 10 (5-31) U/L ALT 10 (0-31) U/L Alkaline Phosphatase 144 H (39-117) U/L Total Protein 6.6 (6.5-8.0) g/dL Albumin 3.5 (3.5-5.0) g/dL Acetone, Qual Negative (Negative) Discharge Plan Discharge Clinical Impression: Acute hyperglycemia Patient Disposition: Home, Self-Care Instructions: Diabetic Hyperglycemia (ED) Prescriptions: No Action venlafaxine 75 mg capsule,extended release 24hr 75 mg PO BID RF: 0 amitriptyline 50 mg tablet 50 mg PO BEDTIME RF: 0 insulin aspart U-100 [Novolog Flexpen U-100 Insulin] 100 unit/mL (3 mL) insulin pen 14 unit subcut TID RF: 0 Lantus Solostar U-100 Insulin 100 unit/mL (3 mL) insulin pen subcut RF: 0 Referrals: Physician,Unknown [Primary Care Provider] - 2 days (Please follow a strict diabetic diet. Closely follow-up with your primary physician for additional insulin adjustment.)
[2020-10-26 05:32] VITALS: BP 117/63; PULSE 67; RESP 18; O2SAT 97
[2020-10-26 05:46] LABS: Basophils Percent Auto 0.5 % (0-2); Eosinophils Absolute Auto 0.4 X10*3/uL (0.0-0.4); Hematocrit 39.9 % (37-47); Hemoglobin 13.4 g/dl (12.0-16.0); Imm Gran Abs Auto 0.03 X10*3/uL (0.00-0.03); Imm Gran Pct Auto 0.4 % (0.0-0.4); Lymphocytes Percent Auto 49.2 % (20-40); MANUAL DIFF FLAG NO; Mean Corpuscular HGB Conc 33.6 g/dl (31.0-35.0); Mean Corpuscular Volume 95.2 fL (80-98); Mean Platelet Volume 11.7 fL (9.4-12.3); Monocytes Absolute Auto 0.6 X10*3/uL (0.1-1.2); Monocytes Percent Auto 7.6 % (2-11); Neutrophils Absolute Auto 3.1 X10*3/uL (2.0-8.3); Neutrophils Percent Auto 37.3 % (45-73); Platelet Count 188 X10*3/uL (160-400); Red Blood Count 4.19 X10*6/uL (4.20-5.50); Red Cell Distribution Width 12.3 % (11.0-16.0); White Blood Count 8.2 X10*3/uL (4.8-10.8)
[2020-10-26 05:47] LABS: Venous Blood Gas Refer to POC result
[2020-10-26 05:49] LABS: VBG Base Excess -2.9 mmol/L; VBG HCO3 21 mmol/L (22-26); VBG pCO2 34 mmHg; VBG pH 7.39 (7.32-7.43); VBG pO2 112 mmHg
[2020-10-26 05:59] LABS: Acetone, serum QL Negative (Negative)
[2020-10-26 06:07] LABS: Glucose Random 433 mg/dL (60-115)
[2020-10-26 06:08] LABS: Alanine Aminotransferase 10 U/L (0-31); Albumin Level 3.5 g/dL (3.5-5.0); Alkaline Phosphatase 144 U/L (39-117); Anion Gap 13 (12-20); Aspartate Amino Transferase 10 U/L (5-31); Bilirubin Direct < 0.2 mg/dL (0.0-0.5); Bilirubin Total 0.3 mg/dL (0.0-1.0); Blood Urea Nitrogen 21 mg/dL (9-16); Calcium 10.1 mg/dL (8.4-10.2); Carbon Dioxide 24 mmol/L (22-29); Chloride 102 mmol/L (96-108); Creatinine Clr Calc Pharmacy 62.6; Estimated Glomerular Filt Rate 52; Potassium 4.1 mmol/L (3.3-5.1); Sodium 135 mmol/L (135-145); Total Protein 6.6 g/dL (6.5-8.0)
[2020-10-26] MEDS: 0.9 % Sodium Chloride 1,000 ML 999 ML IV (06:16)
[2020-10-26] MEDS: Insulin Regular, Human 100 UNIT/ML 3 ML VIAL IVPUSH (06:16)
[2020-10-26 06:41] LABS: Glucose, Whole Blood 334 mg/dL (60-115)
== END 2020-10-26 07:00 | disposition home or self-care (01) ==
PROVIDERS: Emergency Provider Emergency Medicine Emergency Medical Services
DX: E13.65 Other specified diabetes mellitus with hyperglycemia (principal); Z79.4 Long term (current) use of insulin
CPT/HCPCS: 36415; 80048; 80076; 82009; 82947; 85025; 96361; 96374; 99284

== ENCOUNTER 2020-12-13 04:12 | Emergency (ER) | payer MEDICARE, MEDICAID, SELFPAY ==
--- NOTE | ~2020-12-13 | XR_ITS ---
EXAMINATION: XR CHEST CLINICAL INFORMATION: Chest pain COMPARISON: 03/24/2016 TECHNIQUE: Frontal view of the chest was obtained. FINDINGS: The lungs are clear with no focal consolidation. No evidence of pneumothorax, pulmonary edema, or pleural effusions. The cardiomediastinal silhouette is unremarkable. No acute osseous findings. XR/XR chest 1V IMPRESSION: No acute cardiopulmonary findings.
[2020-12-13 04:21] VITALS: BP 127/67; PULSE 88; RESP 18; TEMP 36.9; O2SAT 96; BMI 32.5
[2020-12-13 04:32] LABS: Glucose, Whole Blood 322 mg/dL (60-115)
--- NOTE | 2020-12-13 04:47 | ECG_ITS ---
Test Reason : CHEST PAIN Blood Pressure : / mmHG Vent. Rate : 083 BPM Atrial Rate : 083 BPM P-R Int : 140 ms QRS Dur : 086 ms QT Int : 370 ms P-R-T Axes : 065 -01 026 degrees QTc Int : 434 ms Normal sinus rhythm Normal ECG When compared with ECG of 20-MAR-2020 03:28, Premature ventricular complexes are no longer Present Referred By: Generic ED Physician Electronically Signed By:JAVY ODONNELL
[2020-12-13 05:06] LABS: MANUAL DIFF FLAG NO
[2020-12-13 05:08] LABS: Basophils Percent Auto 0.3 % (0-2); Eosinophils Absolute Auto 0.3 X10*3/uL (0.0-0.4); Eosinophils Percent Auto 2.6 % (0-4); Hematocrit 39.9 % (37-47); Hemoglobin 13.9 g/dl (12.0-16.0); Imm Gran Abs Auto 0.03 X10*3/uL (0.00-0.03); Imm Gran Pct Auto 0.3 % (0.0-0.4); Lymphocytes Absolute Auto 3.5 X10*3/uL (1.2-4.9); Lymphocytes Percent Auto 36.8 % (20-40); Mean Corpuscular HGB Conc 34.8 g/dl (31.0-35.0); Mean Corpuscular Hemoglobin 32.3 pg (27.0-33.0); Mean Corpuscular Volume 92.8 fL (80-98); Mean Platelet Volume 11.9 fL (9.4-12.3); Monocytes Absolute Auto 0.8 X10*3/uL (0.1-1.2); Monocytes Percent Auto 8.4 % (2-11); Neutrophils Absolute Auto 4.9 X10*3/uL (2.0-8.3); Neutrophils Percent Auto 51.6 % (45-73); Platelet Count 173 X10*3/uL (160-400); Red Cell Distribution Width 12.4 % (11.0-16.0); White Blood Count 9.5 X10*3/uL (4.8-10.8)
[2020-12-13] MEDS: Acetaminophen 325 MG TABLET PO (05:27)
[2020-12-13] MEDS: Acetaminophen 325 MG TABLET 650 MG PO (05:27)
[2020-12-13 05:44] LABS: Influenza A PCR NEGATIVE (Negative); Influenza B PCR NEGATIVE (Negative); Resp Syncy Virus RNA Qual PCR NEGATIVE (Negative); SARS COV2 PCR INHOUSE NEGATIVE (Negative)
[2020-12-13 05:50] LABS: Anion Gap 13 (12-20); Blood Urea Nitrogen 19 mg/dL (9-16); Calcium 10.6 mg/dL (8.4-10.2); Carbon Dioxide 24 mmol/L (22-29); Chloride 103 mmol/L (96-108); Creatinine Clr Calc Pharmacy 57.5; Estimated Glomerular Filt Rate 48; Glucose Random 308 mg/dL (60-115); Potassium 4.4 mmol/L (3.3-5.1); Sodium 136 mmol/L (135-145)
[2020-12-13 05:56] LABS: Troponin-I High Sensitivity 6.7 ng/L (<3.5-17.0)
[2020-12-13] MEDS: Benzonatate 100 MG CAPSULE PO (05:59)
[2020-12-13] MEDS: Ketorolac Tromethamine 15 MG/ML VIAL IVPUSH (05:59)
--- NOTE | 2020-12-13 06:19 | ED.CHESTPAIN ---
HPI - Chest Pain General Chief Complaint: Chest Pain Stated Complaint: CP/Cough Time Seen by Provider: 12/13/20 05:50 Source: patient Mode of arrival: ambulatory History of Present Illness HPI narrative: 55-year-old female with history of diabetes and asthma states that she has been having increased cough without phlegm production and subsequently developed central chest pain without radiation and otherwise denies shortness of breath, dizziness, nausea, urinary symptoms. Patient does describe headache as well as nasal congestion with sore throat. Related Data Home Medications Medication Instructions Recorded Confirmed amitriptyline 50 mg tablet 50 mg PO BEDTIME 08/30/20 08/30/20 insulin aspart U-100 100 unit/mL 14 unit SUBCUT TID 08/30/20 08/30/20 (3 mL) subcutaneous pen (Novolog Flexpen U-100 Insulin aspart) insulin glargine 100 unit/mL (3 SUBCUT 08/30/20 mL) subcutaneous pen (Lantus Solostar U-100 Insulin) venlafaxine 75 mg capsule,extended 75 mg PO BID 08/30/20 08/30/20 release 24 hr Allergies Allergy/AdvReac Type Severity Reaction Status Date / Time penicillin V Allergy Unknown Hives Verified 08/31/20 04:40 Penicillins Allergy Unknown HIVES Verified 08/31/20 04:40 Review of Systems Review of Systems: Pertinent positives and negatives as stated in HPI 10 point review of systems is otherwise negative. [facility] Past Medical History Source: nursing notes reviewed Medical History Anxiety Bipolar 1 disorder Depressed Diabetes 1.5, managed as type 1 Surgical History History of dental surgery History of partial hysterectomy Social History Social History Alcohol intake: never Substance Use Type: Marijuana Advance Directives: No Advance Directives Information Provided: No Patient : No Physical Exam Vital Signs: Vital Signs: Last Vital Signs Temp 98.4 F 12/13/20 04:21 Pulse 88 12/13/20 04:21 Resp 16 12/13/20 06:41 BP 127/67 12/13/20 04:21 Pulse Ox 96 12/13/20 04:21 Body Mass Index 32.5 VITAL SIGNS: Reviewed. GENERAL: Well developed, well nourished, in no acute distress. HEAD: Normocephalic/atraumatic EYES: PERRLA, EOMI EARS: Ext canals without abnormality, TMs non-bulging and non-erythematous NOSE: Nares patent bilateral OROPHARYNX: no oral lesions noted, posterior pharynx clear NECK: Supple, no adenopathy LUNGS: Normal breath sounds. No adventitious sounds or accessory muscle use. SpO2<96> CARDIOVASCULAR: Regular rate and rhythm without noted murmurs, no JVD or lower extremity edema. ABDOMEN: Soft, non-tender, non-distended with bowel sounds. MUSCULOSKELETAL: No tenderness, deformities, or effusions noted on gross inspection. EXTREMITIES: No cyanosis, clubbing or edema. SKIN: Inspection of the skin reveals no rashes, ulcerations, jaundice, pallor, or petechiae. NEUROLOGIC: Alert and oriented x 4. Strength and sensation to light touch were grossly intact x 4. Course Course Course Narrative: 55-year-old female with history and clinical presentation consistent with viral syndrome no finding suggestive asthma exacerbation. Patient provided with combination analgesics as well as cough medication and albuterol. On re-evaluation patient reports she is feeling much better and review of all investigations without acute findings other than mild hyperglycemia without evidence of DKA or HHS. High sensitivity troponin below detectable is not elevated and EKG is without acute findings. HEART Score:2 Given patient's history of diabetes will repeat the high sensitivity troponin but as long as there is no increase patient is a state discharged to home with follow-up on Tuesday with her primary care provider. MDM - Chest Pain Lab Data Result diagrams: 12/13/20 05:00 12/13/20 05:01 Labs: Lab Results 12/13/20 12/13/20 12/13/20 Range/Units 04:27 05:00 05:00 WBC 9.5 (4.8-10.8) X10*3/uL RBC 4.30 (4.20-5.50) X10*6/uL Hgb 13.9 (12.0-16.0) g/dl Hct 39.9 (37-47) % MCV 92.8 (80-98) fL MCH 32.3 (27.0-33.0) pg MCHC 34.8 (31.0-35.0) g/dl RDW 12.4 (11.0-16.0) % Plt Count 173 (160-400) X10*3/uL MPV 11.9 (9.4-12.3) fL Immature Gran % (Auto) 0.3 (0.0-0.4) % Neut % (Auto) 51.6 (45-73) % Lymph % (Auto) 36.8 (20-40) % [place] % (Auto) 8.4 (2-11) % Eos % (Auto) 2.6 (0-4) % Baso % (Auto) 0.3 (0-2) % Lymph # (Auto) 3.5 (1.2-4.9) X10*3/uL [place] # (Auto) 0.8 (0.1-1.2) X10*3/uL Eos # (Auto) 0.3 (0.0-0.4) X10*3/uL Baso # (Auto) 0.0 (0.0-0.2) X10*3/uL Abs Immat Gran (auto) 0.03 (0.00-0.03) X10*3/uL Absolute Neuts (auto) 4.9 (2.0-8.3) X10*3/uL Absolute Nucleated RBC 0.000 (0.0-0.012) X10*3/uL Nucleated RBC % (auto) 0.0 (0.0-0.2) /100WBC Sodium (135-145) mmol/L Potassium (3.3-5.1) mmol/L Chloride (96-108) mmol/L Carbon Dioxide (22-29) mmol/L Anion Gap (12-20) BUN (9-16) mg/dL Creatinine (0.5-1.4) mg/dL Estim Creat Clear Calc Estimated GFR POC Glucose 322 H (60-115) mg/dL Random Glucose (60-115) mg/dL Calcium (8.4-10.2) mg/dL Troponin I High Sens (<3.5-17.0) ng/L Coronavirus (PCR) NEGATIVE (Negative) Influenza Type A (PCR) NEGATIVE (Negative) Influenza Type B (PCR) NEGATIVE (Negative) RSV RNA Qual (PCR) NEGATIVE (Negative) 08/28/21 08/28/21 Range/Units 05:00 05:01 WBC (4.8-10.8) X10*3/uL RBC (4.20-5.50) X10*6/uL Hgb (12.0-16.0) g/dl Hct (37-47) % MCV (80-98) fL MCH (27.0-33.0) pg MCHC (31.0-35.0) g/dl RDW (11.0-16.0) % Plt Count (160-400) X10*3/uL MPV (9.4-12.3) fL Immature Gran % (Auto) (0.0-0.4) % Neut % (Auto) (45-73) % Lymph % (Auto) (20-40) % [place] % (Auto) (2-11) % Eos % (Auto) (0-4) % Baso % (Auto) (0-2) % Lymph # (Auto) (1.2-4.9) X10*3/uL [place] # (Auto) (0.1-1.2) X10*3/uL Eos # (Auto) (0.0-0.4) X10*3/uL Baso # (Auto) (0.0-0.2) X10*3/uL Abs Immat Gran (auto) (0.00-0.03) X10*3/uL Absolute Neuts (auto) (2.0-8.3) X10*3/uL Absolute Nucleated RBC (0.0-0.012) X10*3/uL Nucleated RBC % (auto) (0.0-0.2) /100WBC Sodium 136 (135-145) mmol/L Potassium 4.4 (3.3-5.1) mmol/L Chloride 103 (96-108) mmol/L Carbon Dioxide 24 (22-29) mmol/L Anion Gap 13 (12-20) BUN 19 H (9-16) mg/dL Creatinine 1.16 (0.5-1.4) mg/dL Estim Creat Clear Calc 57.5 Estimated GFR 48 POC Glucose (60-115) mg/dL Random Glucose 308 H (60-115) mg/dL Calcium 10.6 H (8.4-10.2) mg/dL Troponin I High Sens 6.7 (<3.5-17.0) ng/L Coronavirus (PCR) (Negative) Influenza Type A (PCR) (Negative) Influenza Type B (PCR) (Negative) RSV RNA Qual (PCR) (Negative) ECG Data ECG #1: Attestation: I personally reviewed and interpreted this ECG as follows: Prior ECG tracings: available for review (03/20/2020 no acute changes on comparison) Interpretation: Normal sinus rhythm, HR-83, no STEMI, TX/QRS/QTC are within normal limits. Discharge Plan Discharge Clinical Impression: Atypical chest pain, Viral syndrome, Asthma Patient Disposition: Home, Self-Care Instructions: Viral Syndrome (ED), Asthma (ED) Additional Instructions: 1. Resume all home medications as prescribed. 2. Recommend [id number] Tylenol/ibuprofen as needed for symptomatic relief of your viral symptoms. 3. Increase fluid hydration especially with water. 4. It is very important for you to continue to use your albuterol inhaler consistently over the next 24-48 hours. 5. Please follow-up with your primary care provider on Tuesday for re-evaluation and further outpatient management. Return to the ED for any acute worsening of your symptoms. Prescriptions: No Action venlafaxine 75 mg capsule,extended release 24hr 75 mg PO BID RF: 0 amitriptyline 50 mg tablet 50 mg PO BEDTIME RF: 0 insulin aspart U-100 [Novolog Flexpen U-100 Insulin] 100 unit/mL (3 mL) insulin pen 14 unit subcut TID RF: 0 Lantus Solostar U-100 Insulin 100 unit/mL (3 mL) insulin pen subcut RF: 0 Referrals: Physician,Unknown [Primary Care Provider] - 2 days
[2020-12-13] MEDS: Albuterol Sulfate 90 MCG 8 GM INHALER 4 PUFF INHALE (06:35)
[2020-12-13 06:41] VITALS: RESP 16
[2020-12-13 08:39] LABS: Troponin-I High Sensitivity 6.2 ng/L (<3.5-17.0)
[2020-12-13 08:54] VITALS: BP 120/66; PULSE 88; RESP 19; O2SAT 97
== END 2020-12-13 09:41 | disposition home or self-care (01) ==
PROVIDERS: Emergency Provider Student in an Organized Health Care Education/Training Program
DX: R07.89 Other chest pain (principal); B34.9 Viral infection, unspecified; Z20.822 Contact with and (suspected) exposure to COVID-19; J45.909 Unspecified asthma, uncomplicated; R51.9 Headache, unspecified; J02.9 Acute pharyngitis, unspecified; E13.9 Other specified diabetes mellitus without complications; F31.9 Bipolar disorder, unspecified; Z79.4 Long term (current) use of insulin; Z79.899 Other long term (current) drug therapy
CPT/HCPCS: 0241U; 36415; 71045; 80048; 82947; 84484; 85025; 93005; 96374; 99284; J1885

== ENCOUNTER → 2021-04-16 09:52 | Outpatient (BNVA) | payer MEDICARE, MEDICAID, SELFPAY | PROVIDERS: PCP Internal Medicine; Visit Provider Nurse Practitioner Gerontology | CPT/HCPCS: Q3014 ==

== ENCOUNTER 2021-07-11 11:48 | Emergency (ER) | payer MEDICARE, MEDICAID, SELFPAY ==
--- NOTE | ~2021-07-11 | US_ITS ---
EXAMINATION: US VENOUS ULTRASOUND WITH DOPPLER LOWER EXTREMITY, RIGHT CLINICAL INFORMATION: Right leg pain. History of DVT. COMPARISON: Previous exams most recent August 2018 TECHNIQUE: Ultrasound of the deep veins is performed from the hip to the calf with compression sonography and color and pulse Doppler assessment. Spectral analysis with color-flow imaging is performed. FINDINGS: There is normal venous compression and respiratory variation and augmented flow. The visualized common femoral vein, superficial femoral vein, profunda femoral vein, popliteal vein, and the trifurcation region shows no evidence of deep venous thrombosis. The contralateral left common femoral vein is patent. There is no significant popliteal fossa cyst. US/US venous duplex LE RT IMPRESSION: No DVT demonstrated in the right lower extremity.
--- NOTE | ~2021-07-11 | XR_ITS ---
EXAMINATION: XR KNEE, RIGHT CLINICAL INFORMATION: Pain. Question dislocated patella. COMPARISON: Previous x-ray August 2020 TECHNIQUE: Four views of the right knee. FINDINGS: Bone alignment is normal. No fracture or dislocation is seen. The femoral tibial joints are normal. There are small osteophytes at the patellofemoral joint. There is no joint effusion. XR/XR knee RT 4V IMPRESSION: Small osteophytes at the patellofemoral joint.
[2021-07-11 11:58] VITALS: BP 114/66; PULSE 85; RESP 18; TEMP 35.9; O2SAT 98; BMI 36.8
--- NOTE | 2021-07-11 12:06 | ED.LOWEXIN ---
HPI - Extremity Injury (Lower) General Chief Complaint: Extremity Injury, Lower Stated Complaint: Knee pain Time Seen by Provider: 07/11/21 12:04 Source: patient Mode of arrival: wheelchair Limitations: no limitations History of Present Illness HPI Narrative: 55 y/o female with history of DM2 on insulin, CKD, neuropathy, HTN presents to the ER with worsening right knee pain for the last month. She states when she was in her kitchen a month ago she turned to put something in the fridge, when he body turned but her knee did not. She felt and heard a pop and thinks she dislocated her kneecap. She immediately popped it back in because she was scared and states it was her instinct. Since then she has been having worsening knee pain. She has been having trouble walking, bending the knee, getting dressed. She has been taking Motrin and Tylenol with minimal relief. She states the pain is throughout the entire anterior and posterior knee and radiates distally. She denies any numbness or tingling. She reports a history of blood clot in the right leg about 7 years ago, she is only on baby aspirin at this time. She denies any calf pain. No skin changes or swelling. No chest pain or shortness of breath. MD complaint: knee injury Onset (ago): month(s) (1) Type of Injury: unknown Place: home Severity: severe Severity scale (1-10): 9 Relieving factors: immobilization and rest Exacerbating factors: weight bearing, movement and palpation Context: walking Associated symptoms: snap/pop sensation and unable to bear weight Other symptoms: none Related Data Home Medications Medication Instructions Recorded Confirmed amlodipine 10 mg tablet 5 mg PO DAILY tab 04/16/21 04/16/21 aripiprazole 2 mg tablet (Abilify) 4 mg PO BEDTIME 04/16/21 04/16/21 gabapentin 300 mg capsule 300 mg PO TID 04/16/21 04/16/21 trazodone 50 mg tablet 50 mg PO BEDTIME PRN 04/16/21 04/16/21 venlafaxine 75 mg capsule,extended 75 mg PO ONCE cap 04/16/21 04/16/21 release 24 hr Previous Rx's Medication Instructions Recorded blood sugar diagnostic (FreeStyle #150 ea 04/16/21 Lite Strips) empagliflozin 10 mg tablet 10 mg PO QAM #30 tab 04/16/21 (Jardiance) insulin aspart U-100 100 unit/mL 20 unit (0.2 mL) SUBCUT TID 30 04/16/21 (3 mL) subcutaneous pen (Novolog Days #30 ml Flexpen U-100 Insulin aspart) insulin degludec 200 unit/mL (3 90 unit (0.45 mL) SUBCUT BEDTIME 04/16/21 mL) subcutaneous pen (Tresiba 30 Days #18 ml FlexTouch U-200 insulin) metformin 500 mg tablet,extended 500 mg PO BID #30 tab 04/16/21 release 24 hr hydrocodone 5 mg-acetaminophen 325 1 tab PO Q8H PRN #5 tab 07/11/21 mg tablet naproxen 500 mg tablet 500 mg PO BID PRN #20 tab 07/11/21 Allergies Allergy/AdvReac Type Severity Reaction Status Date / Time penicillin V Allergy Unknown Hives Verified 04/16/21 10:26 Penicillins Allergy Unknown HIVES Verified 04/16/21 10:26 Review of Systems Review of Systems: Constitutional: No Fever, No Chills Cardiovascular: No Chest Pain, No SOB, No Orthopnea, No Edema Gastrointestinal: No Nausea, No Vomiting Musculoskeletal: + joint pain, + Myalgias Skin: No Skin Lesions, No rash Neuro: No Weakness, No Numbness, No Dizziness, No Headache Psych: + Anxiety/Panic, No Depression Heme/Lymph: No Bruising, No Lymphadenopathy PMFSH Past Medical History Medical History (Updated 07/11/21 @ 14:22 by JHON Simpson) Anxiety Bipolar 1 disorder Depressed Diabetes 1.5, managed as type 1 DM2 (diabetes mellitus, type 2) Surgical History History of dental surgery History of partial hysterectomy Social History Social History (Updated 04/16/21 @ 09:54 by RANDEE Mtz) Household Members: Children Household Members Other:: daughter Alcohol intake: never Patient Tobacco Use Status: Current everyday Tobacco user Substance Use Type: Marijuana Advance Directives: No Advance Directives Information Provided: No Patient : No Physical Exam Vital Signs: Vital Signs: Last Vital Signs Temp 96.7 F L 07/11/21 11:58 Pulse 85 07/11/21 11:58 Resp 18 07/11/21 11:58 BP 114/66 07/11/21 11:58 Pulse Ox 98 07/11/21 11:58 BMI result Body Mass Index 36.8 Appearance: Alert. Oriented X3. Appears to be in pain. HEENT: normal inspection CVS: Normal heart rate and rhythm. Pulses normal. Respiratory: No respiratory distress. Skin: Skin warm and dry. Normal skin color. Normal skin turgor. No rashes. Extremities: Normal inspection of the bilateral knees. Right knee is tender throughout, mostly in the lateral joint line and medial patella. Patella is intact, with limited mobility. tenderness of the patellar tendon. pain with minimal flexion of the knee to 30 degrees, unable to assess for joint laxity due to pain. tenderness in the popliteal fossa without palpable mass. tenderness of the left lower leg and calf without swelling or erythema Neuro: Oriented X 3. No motor deficit. No sensory deficit. Gait not tested due to pain Course Course Course Narrative: 55-year-old female presents to the ER for evaluation of right knee pain for the last 1 month after twisting injury. She felt a pop and thinks she may have dislocated her patella at the time. She has had worsening pain and difficulty ambulating since. On examination she has significant tenderness and limited mobility. She also has tenderness posteriorly and history of DVT. Will check x-ray as well as lower extremity Doppler. Concern for possible ligamentous injury. Reevaluation(s) Reevaluation #1: X-ray only showing some small osteophytes. Ultrasound is showing no evidence of DVT. Her pain is improved after 2 doses of oral pain medications. At this time will provide crutches and referred to orthopedics for further evaluation of possible ligament injury. Patient is in agreement. She will call this week to arrange an appointment. Encouraged rest, ice, compression, elevation. stable for discharge home with orthopedic follow-up. Critical Care Time Critical Care Time Critical Care Time: No Discharge Plan Discharge Clinical Impression: Acute pain of right knee Patient Disposition: Home, Self-Care Instructions: Knee Pain (ED) Additional Instructions: Your x-ray today did not show any acute injuries. Your ultrasound was negative for blood clot. There is concern for possible ligamentous injury. Recommend following up with orthopedics this week -name and number below. Rest your knee and stay off of it until evaluated by orthopedics. Use the crutches as directed. Use ice several times per day and elevate the knee whenever possible. Take prescribed medications as needed. No driving. If you develop new or worsening symptoms call 911 or come back to the ER for further evaluation. Prescriptions: New naproxen 500 mg tablet 500 mg PO BID PRN (Reason: pain) Qty: 20 0RF hydrocodone-acetaminophen 5-325 mg tablet 1 tab PO Q8H PRN (Reason: severe pain (scale score 7-10)) Qty: 5 0RF No Action venlafaxine 75 mg capsule,extended release 24hr 75 mg PO ONCE 0RF amlodipine 10 mg tablet 5 mg PO DAILY 0RF gabapentin 300 mg capsule 300 mg PO TID 0RF aripiprazole [Abilify] 2 mg tablet 4 mg PO BEDTIME 0RF trazodone 50 mg tablet 50 mg PO BEDTIME PRN0RF Jardiance 10 mg tablet 10 mg PO QAM Qty: 30 6RF Tresiba FlexTouch U-200 200 unit/mL (3 mL) insulin pen 90 unit subcut BEDTIME 30 Days Qty: 18 6RF insulin aspart U-100 [Novolog Flexpen U-100 Insulin] 100 unit/mL (3 mL) insulin pen 20 unit subcut TID 30 Days Qty: 30 6RF metformin 500 mg tablet extended release 24 hr 500 mg PO BID Qty: 30 6RF (DME) FreeStyle Lite Strips Strip See Rx Instructions .ROUTE .MEDSUPPLY Qty: 150 11RF Rx Instructions: As directed four times a day Referrals: Dolores Adan PA-C [Physician Calender Machine Operator] - 2 days (right knee pain)
--- NOTE | 2021-07-11 12:18 | PC.NURSE ---
pt states to author pt has a history of DVT in right leg. Stated she currently takes 81mg ASA. Last episode of DVT in leg was approx 7 years ago.
[2021-07-11] MEDS: HYDROcodone Bit/Acetam 5/325 TABLET 1 TAB PO ×2 (12:35→13:53)
== END 2021-07-11 15:30 | disposition home or self-care (01) ==
PROVIDERS: Emergency Provider Emergency Medicine; PCP Internal Medicine
DX: M25.561 Pain in right knee (principal); E11.9 Type 2 diabetes mellitus without complications; F17.200 Nicotine dependence, unspecified, uncomplicated; F12.90 Cannabis use, unspecified, uncomplicated; Z86.718 Personal history of other venous thrombosis and embolism; Z79.4 Long term (current) use of insulin; Z79.82 Long term (current) use of aspirin
CPT/HCPCS: 73564; 93971; 99284

== ENCOUNTER 2021-08-09 12:24 | Emergency (ER) | payer MEDICARE, MEDICAID, SELFPAY ==
--- NOTE | ~2021-08-09 | CT_ITS ---
EXAMINATION: CT ABDOMEN AND PELVIS WITH CONTRAST CLINICAL INFORMATION: Right-sided abdominal pain COMPARISON: Previous CT of the abdomen and pelvis most recent October 2018 TECHNIQUE: Multidetector volumetric images were obtained from the superior aspect of the liver through the pubic symphysis following administration 85 mL of Omnipaque 350 intravenous contrast. Sagittal and coronal reformatted images were obtained on the technologist's workstation. Oral contrast: Yes This CT examination was performed using dose optimization techniques as appropriate, variously including the following: *Automated exposure control *Adjustment of mA and/or kV according to patient size (this includes techniques or standardized protocols for targeted exams where dose is matched to indication/reason for exam; i.e. extremities or head) *Use of iterative reconstruction technique DLP: 755 mGy-cm FINDINGS: LUNG BASES: The visualized lung bases are unremarkable. LIVER, GALLBLADDER, AND BILIARY TREE: The liver is low in attenuation and slightly enlarged suggestive of fatty infiltration. There is a tiny 3 mm low-attenuation lesion in segment right lobe of the liver axial image 37 series 3. This is difficult to characterize due to small size but may represent a small cyst. The gallbladder is been removed. There is no biliary duct dilatation. PANCREAS: Unremarkable. SPLEEN: There is a small 4 mm low-attenuation lesion in the posterior spleen axial image 20 series 3. This is also difficult to characterize due to small size. ADRENAL GLANDS: Unremarkable. KIDNEYS AND URETERS: The kidneys are normal in size, shape, and attenuation. No hydronephrosis, hydroureter, or calculi seen. No perinephric stranding. BLADDER: Not optimally distended. GASTROINTESTINAL TRACT: The small and large bowel are unremarkable. The appendix is unremarkable. ABDOMINAL WALL: There is a small umbilical hernia containing fat. LYMPH NODES: Normal. VASCULAR: There is evidence of atherosclerotic disease. The abdominal aorta is normal in caliber. PELVIC VISCERA: Uterus appears to have been removed. No pelvic mass. OSSEOUS STRUCTURES: Degenerative changes of the spine. CT/CT abdomen pelvis w con IMPRESSION: Fatty liver. Small umbilical hernia containing fat. No acute findings in the abdomen or pelvis. Fleischner guidelines were followed.
--- NOTE | 2021-08-09 12:34 | ED_ITS ---
HPI - Abdominal Pain General Chief Complaint: Abdominal Pain Stated Complaint: ABD PAIN X'S 2 HOURS Time Seen by Provider: 08/09/21 12:34 Source: patient Mode of arrival: EMS Limitations: no limitations History of Present Illness HPI narrative: Patient presents to the emergency department for evaluation of right-sided abdominal pain of sudden onset 2 hours ago that awoke her from her sleep. She reports similar pain occurring 2 times in the past for which she did not receive evaluation for. Pain is diffusely to the right side of her abdomen radiates from this side across to the midline described as a cramping sensation, pain is 10/10, denies alleviating or exacerbating factors. She denies fevers, chills, chest pain, palpitations, shortness of breath, dyspnea on exertion, pedal edema, left-sided abdominal pain, nausea, vomiting, diarrhea, constipation, bloody or dark stools, dysuria, urinary frequency / urgency / hesitancy, abnormal vaginal discharge, concern for STI, pelvic pain. Related Data Home Medications Medication Instructions Recorded Confirmed amlodipine 10 mg tablet 5 mg PO DAILY tab 04/16/21 04/16/21 aripiprazole 2 mg tablet (Abilify) 4 mg PO BEDTIME 04/16/21 04/16/21 gabapentin 300 mg capsule 300 mg PO TID 04/16/21 04/16/21 trazodone 50 mg tablet 50 mg PO BEDTIME PRN 04/16/21 04/16/21 venlafaxine 75 mg capsule,extended 75 mg PO ONCE cap 04/16/21 04/16/21 release 24 hr Previous Rx's Medication Instructions Recorded blood sugar diagnostic (FreeStyle #150 ea 04/16/21 Lite Strips) empagliflozin 10 mg tablet 10 mg PO QAM #30 tab 04/16/21 (Jardiance) insulin aspart U-100 100 unit/mL 20 unit (0.2 mL) SUBCUT TID 30 04/16/21 (3 mL) subcutaneous pen (Novolog Days #30 ml Flexpen U-100 Insulin aspart) insulin degludec 200 unit/mL (3 90 unit (0.45 mL) SUBCUT BEDTIME 04/16/21 mL) subcutaneous pen (Tresiba 30 Days #18 ml FlexTouch U-200 insulin) hydrocodone 5 mg-acetaminophen 325 1 tab PO Q8H PRN #5 tab 07/11/21 mg tablet naproxen 500 mg tablet 500 mg PO BID PRN #20 tab 07/11/21 metformin 500 mg tablet,extended 500 mg PO BID #30 tab 07/20/21 release 24 hr Allergies Allergy/AdvReac Type Severity Reaction Status Date / Time penicillin V Allergy Unknown Hives Verified 04/16/21 10:26 Penicillins Allergy Unknown HIVES Verified 04/16/21 10:26 Review of Systems Review of Systems Constitutional : No Weight loss, No Fever, No Chills ENT/Mouth :? No sore throat, No Rhinorrhea Eyes: No Swelling, No Redness Cardiovascular : No Chest Pain, No SOB, No Edema Respiratory : No Cough, No Sputum, No Wheezing Gastrointestinal : no Nausea, no Vomiting, no Diarrhea, positive abdominal pain, No Hematochezia, No Melena Genitourinary : positive flank pain No Dysuria, No Urinary Frequency, No Hematuria, No Urgency? Musculoskeletal : No joint pain, No Myalgias, No Joint Swelling Skin : No Skin Lesions, No rash Neuro : No Weakness, No Numbness, No Dizziness, No Headache Psych : No Anxiety/Panic, No Depression Heme/Lymph: No Bruising, No Lymphadenopathy Endocrine : No Polyuria, No Polydipsia Yes all other systems are reviewed and are negative PMFSH Past Medical History Attestation statement: The following information was validated with the patient. Source: old records reviewed Medical History Anxiety Bipolar 1 disorder Depressed Diabetes 1.5, managed as type 1 DM2 (diabetes mellitus, type 2) Surgical History History of dental surgery History of partial hysterectomy Social History Social History Household Members: Children Household Members Other:: daughter Alcohol intake: never Patient Tobacco Use Status: Current everyday Tobacco user Use of substances other than those prescribed or required for medical reasons: Yes Substance Use Type: Marijuana Advance Directives: No Advance Directives Information Provided: No Physical Exam ED Vital Signs: Vital Signs - 24 hr 08/09/21 12:35 08/09/21 14:00 08/09/21 14:54 Temperature 97.6 F Pulse Rate 70 72 76 Respiratory Rate 20 20 18 Blood Pressure 158/69 H 101/68 130/70 Pulse Oximetry 100 96 100 04/ 16:10 Temperature 97.8 F Pulse Rate 69 Respiratory Rate 14 Blood Pressure 104/47 L Pulse Oximetry 95 BMI result Body Mass Index 35.8 Vital signs have been reviewed as normal and appeared to be correct. Blood pressure elevated 158/69.? Heart rate normal.? Respiration rate normal. Temperature normal.? Oxygen saturation normal. Appearance: Alert.?Oriented to person, place and time. No acute distress.?Normal affect. Eyes: Pupils equal, round and reactive to light.? ENT: Pharynx normal.?? Neck: Normal inspection.? Neck supple.?? CVS: Heart sounds normal. Normal heart rate and rhythm.? Pulses normal.?? Respiratory: No respiratory distress.? Lung sounds clear to auscultation bilaterally?? Abdomen: Soft diffuse right-sided abdominal tenderness. No rebound tenderness. Psoas sign negative, obturator's sign negative, Rovsing sign negative. Normoactive bowel sounds. No pulsatile mass.?? Genitourinary: right CVA tenderness Skin: Skin warm and dry.? Normal skin color.? Extremities: No lower extremity edema.? No calf ttp? Neuro: Moves all extremities spontaneously. Sensation intact bilaterally. CN II-XII intact. No focal neuro deficits. Ambulates with normal steady gait. Course Course Course Narrative: Patient is a 55-year-old female with a past medical history of anxiety, bipolar, type 2 diabetes, history of cholecystectomy presenting to the emergency department for sudden onset right-sided abdominal pain. She is without any associated symptoms. She appears extremely uncomfortable during exam, having difficulty sitting still. Will obtain CBC to evaluate for leukocytosis/ anemia, CMP and lipase to evaluate for abnormal electrolytes /abnormal renal function/ abnormal hepatic function, EKG and troponin to evaluate for ischemia/ACS. Urinalysis to evaluate for infection. CT abdomen to evaluate for intraabdominal pathology such as appendicitis, renal calculi, hydronephrosis, CBD stone. will medicate with 1 L normal saline, Zofran 4 mg IV, Toradol 30 mg IV, morphine 2 mg IV. Disposition pending results. Reevaluation(s) Reevaluation #1: CBC is unremarkable. CMP reveals elevated transaminases AST 109, ALT 42, alkaline phosphatase 137, lipase is normal at 37. troponin <3.5, EKG reveals normal rhythm, no acute concerns for ischemia, unlikely ACS. COVID- [address] of the abdomen reveals fatty liver, small umbilical hernia containing fat, cholecystectomy, no biliary duct dilation, no hydronephrosis or renal calculi, appendix is unremarkable, small and large bowel are unremarkable. Not consistent with GI perforation, GI bleed, AAA, aortic dissection, DKA. Not consistent with strangulated hernia, bowel obstruction, pulmonary embolism, mesenteric ischemia, myocardial infarction, ovarian torsion. Patient resting on stretcher comfortably time, drinking water. tolerating oral intake without nausea, vomiting, worsening pain. Discussed all findings with patient, at this time because of her abdominal is unclear, however has improved, she states it feels like a cramping type of pain. I advised plan of care for discharge home in outpatient follow-up with her primary care provider within 1-2 days, discussed reasons to return back to the emergency department, all questions were answered. Time: 15:20 MDM - Abdominal Pain Medical Records Attestation: I reviewed the patient's medical records. Lab Data Attestation: I reviewed the patient's lab results. Result diagrams: 08/09/21 13:05 08/09/21 13:05 Labs: Lab Results 08/09/21 08/09/21 08/09/21 Range/Units 13:05 13:05 13:05 WBC 8.0 (4.8-10.8) X10*3/uL RBC 4.20 (4.20-5.50) X10*6/uL Hgb 13.4 (12.0-16.0) g/dl Hct 39.8 (37.0-47.0) % MCV 94.8 (80.0-98.0) fL MCH 31.9 (27.0-33.0) pg MCHC 33.7 (31.0-35.0) g/dl RDW 12.3 (11.0-16.0) % Plt Count 178 (160-400) X10*3/uL MPV 11.5 (9.4-12.3) fL Immature Gran % (Auto) 0.4 (0.0-0.4) % Neut % (Auto) 51.2 (45-73) % Lymph % (Auto) 35.0 (20-40) % Pender % (Auto) 8.1 (2-11) % Eos % (Auto) 4.9 H (0-4) % Baso % (Auto) 0.4 (0-2) % Lymph # (Auto) 2.8 (1.2-4.9) X10*3/uL Pender # (Auto) 0.7 (0.1-1.2) X10*3/uL Eos # (Auto) 0.4 (0.0-0.4) X10*3/uL Baso # (Auto) 0.0 (0.0-0.2) X10*3/uL Abs Immat Gran (auto) 0.03 (0.00-0.03) X10*3/uL Absolute Neuts (auto) 4.1 (2.0-8.3) x10*3/uL Absolute Nucleated RBC 0.000 (0.0-0.012) X10*3/uL Nucleated RBC % (auto) 0.0 (0.0-0.2) /100WBC Sodium 136 (135-145) mmol/L Potassium 4.3 (3.3-5.1) mmol/L Chloride 105 (96-108) mmol/L Carbon Dioxide 24 (22-29) mmol/L Anion Gap 11 L (12-20) BUN 17 H (9-16) mg/dL Creatinine 0.94 (0.5-1.4) mg/dL Estim Creat Clear Calc 74.5 Estimated GFR > 60 Random Glucose 265 H (60-115) mg/dL Calcium 9.7 D (8.4-10.2) mg/dL Magnesium 1.9 (1.6-2.6) mg/dL Total Bilirubin 0.5 (0.0-1.0) mg/dL AST 109 H (5-31) U/L ALT 42 H (0-31) U/L Alkaline Phosphatase 137 H (39-117) U/L Troponin I High Sens (<3.5-17.0) ng/L Total Protein 6.5 (6.5-8.0) g/dL Albumin 3.5 (3.5-5.0) g/dL Lipase 37 (8-78) U/L Urine Color Urine Appearance Urine pH (5.0-8.0) Ur Specific [place] (1.005-1.025) Urine Protein (NEG-TRACE) MG/DL Urine Glucose (UA) (NEG) MG/DL Urine Ketones (NEG) MG/DL Urine Blood (NEG) Urine Nitrite (NEG) Ur Leukocyte Esterase (NEG) Urine RBC (0) /HPF Urine WBC (0-4) /HPF Ur Squamous Epith Cells /LPF Urine Bacteria /LPF Hyaline Casts /LPF Granular Casts /LPF Urine Mucus /LPF COVID-19 (ARTURO) (Negative) COVID-19 Clin Com Influenza Type A (GIACOMO) Negative (Negative) Influenza Type B (GIACOMO) Negative (Negative) Influenza A & B Note See Note 08/09/21 08/09/21 08/09/21 Range/Units 13:05 13:05 14:45 WBC (4.8-10.8) X10*3/uL RBC (4.20-5.50) X10*6/uL Hgb (12.0-16.0) g/dl Hct (37.0-47.0) % MCV (80.0-98.0) fL MCH (27.0-33.0) pg MCHC (31.0-35.0) g/dl RDW (11.0-16.0) % Plt Count (160-400) X10*3/uL MPV (9.4-12.3) fL Immature Gran % (Auto) (0.0-0.4) % Neut % (Auto) (45-73) % Lymph % (Auto) (20-40) % Pender % (Auto) (2-11) % Eos % (Auto) (0-4) % Baso % (Auto) (0-2) % Lymph # (Auto) (1.2-4.9) X10*3/uL Pender # (Auto) (0.1-1.2) X10*3/uL Eos # (Auto) (0.0-0.4) X10*3/uL Baso # (Auto) (0.0-0.2) X10*3/uL Abs Immat Gran (auto) (0.00-0.03) X10*3/uL Absolute Neuts (auto) (2.0-8.3) x10*3/uL Absolute Nucleated RBC (0.0-0.012) X10*3/uL Nucleated RBC % (auto) (0.0-0.2) /100WBC Sodium (135-145) mmol/L Potassium (3.3-5.1) mmol/L Chloride (96-108) mmol/L Carbon Dioxide (22-29) mmol/L Anion Gap (12-20) BUN (9-16) mg/dL Creatinine (0.5-1.4) mg/dL Estim Creat Clear Calc Estimated GFR Random Glucose (60-115) mg/dL Calcium (8.4-10.2) mg/dL Magnesium (1.6-2.6) mg/dL Total Bilirubin (0.0-1.0) mg/dL AST (5-31) U/L ALT (0-31) U/L Alkaline Phosphatase (39-117) U/L Troponin I High Sens < 3.5 (<3.5-17.0) ng/L Total Protein (6.5-8.0) g/dL Albumin (3.5-5.0) g/dL Lipase (8-78) U/L Urine Color YELLOW Urine Appearance HAZY Urine pH 5.5 (5.0-8.0) Ur Specific [place] >= 1.030 H (1.005-1.025) Urine Protein 2+ H (NEG-TRACE) MG/DL Urine Glucose (UA) >=1000 H (NEG) MG/DL Urine Ketones NEG (NEG) MG/DL Urine Blood NEG (NEG) Urine Nitrite NEG (NEG) Ur Leukocyte Esterase NEG (NEG) Urine RBC 0-2 (0) /HPF Urine WBC 1-4 (0-4) /HPF Ur Squamous Epith Cells 2+ /LPF Urine Bacteria TRACE /LPF Hyaline Casts 0-2 /LPF Granular Casts 0-2 /LPF Urine Mucus 1+ /LPF COVID-19 (ARTURO) Negative (Negative) COVID-19 Clin Com See Note Influenza Type A (GIACOMO) (Negative) Influenza Type B (GIACOMO) (Negative) Influenza A & B Note Imaging Data CT scan - abdomen: Radiologist's impression: CT/CT abdomen pelvis w con IMPRESSION: Fatty liver. Small umbilical hernia containing fat. No acute findings in the abdomen or pelvis. ECG Data Attestation: I personally reviewed and interpreted this ECG as follows: ECG interpretation date: 08/09/21 ECG interpretation time: 14:58 Prior ECG tracings: available for review Interpretation: Rate: 70 Rhythm:? normal sinus rhythm [place]:? [place] Normal P waves.? Normal EDNA.?? Normal QRS complex.?? ST T wave :?? no ST elevation, no ST depression, no T-wave inversion qTC: 432 The study has been interpreted contemporaneously by me. Discharge Plan Discharge Clinical Impression: Abdominal pain Patient Disposition: Home, Self-Care Instructions: Abdominal Pain (ED) Additional Instructions: please contact your primary care provider to schedule follow-up visit within 1- 2 days. You may return to the emergency department at any time with any new or worsening symptoms or concerns. Prescriptions: No Action metformin 500 mg tablet extended release 24 hr 500 mg PO BID Qty: 30 0RF venlafaxine 75 mg capsule,extended release 24hr 75 mg PO ONCE 0RF naproxen 500 mg tablet 500 mg PO BID PRN (Reason: pain) Qty: 20 0RF hydrocodone-acetaminophen 5-325 mg tablet 1 tab PO Q8H PRN (Reason: severe pain (scale score 7-10)) Qty: 5 0RF amlodipine 10 mg tablet 5 mg PO DAILY 0RF gabapentin 300 mg capsule 300 mg PO TID 0RF aripiprazole [Abilify] 2 mg tablet 4 mg PO BEDTIME 0RF trazodone 50 mg tablet 50 mg PO BEDTIME PRN0RF Jardiance 10 mg tablet 10 mg PO QAM Qty: 30 6RF Tresiba FlexTouch U-200 200 unit/mL (3 mL) insulin pen 90 unit subcut BEDTIME 30 Days Qty: 18 6RF insulin aspart U-100 [Novolog Flexpen U-100 Insulin] 100 unit/mL (3 mL) insulin pen 20 unit subcut TID 30 Days Qty: 30 6RF (DME) FreeStyle Lite Strips Strip See Rx Instructions .ROUTE .MEDSUPPLY Qty: 150 11RF Rx Instructions: As directed four times a day Interventions: ED Discharge Assessment Last Done: 08/09/21 16:37 Discharge Date/Time: 08/09/21 16:37
[2021-08-09 12:35] VITALS: BP 118/70; BP 158/69; PULSE 70; PULSE 72; RESP 20; TEMP 36.4; O2SAT 100; BMI 35.8
--- NOTE | 2021-08-09 12:42 | ECG_ITS ---
Test Reason : ABDOMINAL PAIN Blood Pressure : / mmHG Vent. Rate : 070 BPM Atrial Rate : 070 BPM P-R Int : 116 ms QRS Dur : 092 ms QT Int : 400 ms P-R-T Axes : -08 010 014 degrees QTc Int : 432 ms Normal sinus rhythm with sinus arrhythmia Normal ECG When compared with ECG of 13-DEC-2020 04:44, No significant change was found Referred By: Rashmi Hood Electronically Signed By:ELIZABETH MEEK
[2021-08-09] MEDS: ondansetron HCL 4 MG/2 ML VIAL IVPUSH (12:52)
[2021-08-09] MEDS: Ketorolac Tromethamine 30 MG/ML VIAL IVPUSH (12:52)
[2021-08-09] MEDS: 0.9 % Sodium Chloride 1,000 ML 999 ML IV (12:52)
[2021-08-09] MEDS: Morphine Sulfate 2 MG/ML CARTRIDGE IVPUSH ×2 (12:52→14:51)
[2021-08-09 13:10] LABS: MANUAL DIFF FLAG NO
[2021-08-09 13:13] LABS: Basophils Percent Auto 0.4 % (0-2); Eosinophils Absolute Auto 0.4 X10*3/uL (0.0-0.4); Eosinophils Percent Auto 4.9 % (0-4); Hematocrit 39.8 % (37.0-47.0); Hemoglobin 13.4 g/dl (12.0-16.0); Imm Gran Abs Auto 0.03 X10*3/uL (0.00-0.03); Imm Gran Pct Auto 0.4 % (0.0-0.4); Lymphocytes Absolute Auto 2.8 X10*3/uL (1.2-4.9); Mean Corpuscular HGB Conc 33.7 g/dl (31.0-35.0); Mean Corpuscular Hemoglobin 31.9 pg (27.0-33.0); Mean Corpuscular Volume 94.8 fL (80.0-98.0); Mean Platelet Volume 11.5 fL (9.4-12.3); Monocytes Absolute Auto 0.7 X10*3/uL (0.1-1.2); Monocytes Percent Auto 8.1 % (2-11); Neutrophils Absolute Auto 4.1 x10*3/uL (2.0-8.3); Neutrophils Percent Auto 51.2 % (45-73); Platelet Count 178 X10*3/uL (160-400); Red Cell Distribution Width 12.3 % (11.0-16.0)
[2021-08-09 13:44] LABS: Troponin-I High Sensitivity < 3.5 ng/L (<3.5-17.0)
[2021-08-09 13:49] LABS: COVID-19 Test Negative (Negative); IDNOW Serial# 55D5AD1C
[2021-08-09 13:58] LABS: Alanine Aminotransferase 42 U/L (0-31); Albumin Level 3.5 g/dL (3.5-5.0); Alkaline Phosphatase 137 U/L (39-117); Anion Gap 11 (12-20); Aspartate Amino Transferase 109 U/L (5-31); Bilirubin Total 0.5 mg/dL (0.0-1.0); Blood Urea Nitrogen 17 mg/dL (9-16); Calcium 9.7 mg/dL (8.4-10.2); Carbon Dioxide 24 mmol/L (22-29); Chloride 105 mmol/L (96-108); Creatinine Clr Calc Pharmacy 74.5; Estimated Glomerular Filt Rate > 60; Glucose Random 265 mg/dL (60-115); Lipase 37 U/L (8-78); Magnesium 1.9 mg/dL (1.6-2.6); Potassium 4.3 mmol/L (3.3-5.1); Sodium 136 mmol/L (135-145); Total Protein 6.5 g/dL (6.5-8.0)
[2021-08-09 14:00] VITALS: BP 101/68; PULSE 72; RESP 20; O2SAT 96
[2021-08-09 14:00] LABS: IDNOW Serial# 16C4AD1C; Influenza A Negative (Negative); Influenza B2 Negative (Negative)
[2021-08-09] MEDS: iohexoL 350 MG/ML 100 ML INFUS..BTL IV (14:22)
[2021-08-09 14:54] VITALS: BP 130/70; PULSE 76; RESP 18; O2SAT 100
[2021-08-09 14:54] LABS: Appearance Urine HAZY; Color Urine YELLOW; Glucose Urine UA >=1000 MG/DL (NEG); Leukocyte Esterase Urine NEG (NEG); Nitrite Urine NEG (NEG); PH 5.5 (5.0-8.0); Specific Gravity - Urine >= 1.030 (1.005-1.025); UACC Culture Trigger NO; Urine Blood NEG (NEG); Urine Ketones NEG (NEG); Urine Protein 2+ MG/DL (NEG-TRACE)
[2021-08-09 15:23] LABS: RBC Urine 0-2 /HPF (0)
[2021-08-09 15:24] LABS: Bacteria Urine TRACE /LPF; Granular Casts Urine 0-2 /LPF; Hyaline Casts Urine 0-2 /LPF; Mucus Urine 1+ /LPF; Squamous Epithelial Cell Urine 2+ /LPF
[2021-08-09 16:10] VITALS: BP 104/47; PULSE 69; RESP 14; TEMP 36.6; O2SAT 95
== END 2021-08-09 16:37 | disposition home or self-care (01) ==
PROVIDERS: Nurse Practitioner Family; Emergency Provider Emergency Medicine
DX: R10.31 Right lower quadrant pain (principal); F17.200 Nicotine dependence, unspecified, uncomplicated; Z20.822 Contact with and (suspected) exposure to COVID-19; Z71.6 Tobacco abuse counseling; Z79.899 Other long term (current) drug therapy
CPT/HCPCS: 74177; 80053; 81001; 83690; 83735; 84484; 85025; 87502; 87635; 93005; 99284; 99285; J1885; J2270; J2405; Q9967

== ENCOUNTER 2021-09-03 06:49 | Outpatient (REF) | payer MEDICARE, MEDICAID, SELFPAY | END 2021-09-03 06:50 | disposition home or self-care (01) | LOC: HO.HOSX 06:49 | PROVIDERS: Visit Provider Physician Assistant | DX: Z13.89 Encounter for screening for other disorder (principal) ==

== ENCOUNTER 2021-11-11 07:34 | Outpatient (REF) | payer MEDICARE, MEDICAID, SELFPAY | END 2021-11-11 07:35 | disposition home or self-care (01) | LOC: HO.HOSX 07:34 | PROVIDERS: Visit Provider Physician Assistant | DX: Z13.89 Encounter for screening for other disorder (principal) ==

== ENCOUNTER 2021-12-11 07:42 | Outpatient (REF) | payer MEDICARE, MEDICAID, SELFPAY ==
--- NOTE | ~2021-12-11 | XR_ITS ---
EXAMINATION: XR BOTH KNEES AP STANDING XR RIGHT KNEE, 2 VIEWS CLINICAL INFORMATION: Right knee pain. COMPARISON: 07/11/2021 TECHNIQUE: Standing AP view of both knees and lateral and sunrise views of the right knee. FINDINGS: LEFT KNEE: Small marginal osteophytes. Mild medial compartment joint space narrowing. No fracture or malalignment. Soft tissues are unremarkable aside from a few phleboliths in the calf. RIGHT KNEE: Mild osteoarthritis is again seen in the medial and patellofemoral compartments with small marginal osteophytes as well as medial compartment joint space narrowing. Lateral compartment appears relatively well-preserved. No joint effusion. Medial compartment joint space narrowing is slightly more pronounced as compared to prior. No soft tissue abnormalities. XR/XR knee RT 1V IMPRESSION: Mild medial and patellofemoral compartment osteoarthritis of the right knee. Medial compartment osteoarthritis is slightly more pronounced as compared to prior. Mild medial compartment osteoarthritis in the left knee.
--- NOTE | ~2021-12-11 | XR_ITS ---
EXAMINATION: XR BOTH KNEES AP STANDING XR RIGHT KNEE, 2 VIEWS CLINICAL INFORMATION: Right knee pain. COMPARISON: 07/11/2021 TECHNIQUE: Standing AP view of both knees and lateral and sunrise views of the right knee. FINDINGS: LEFT KNEE: Small marginal osteophytes. Mild medial compartment joint space narrowing. No fracture or malalignment. Soft tissues are unremarkable aside from a few phleboliths in the calf. RIGHT KNEE: Mild osteoarthritis is again seen in the medial and patellofemoral compartments with small marginal osteophytes as well as medial compartment joint space narrowing. Lateral compartment appears relatively well-preserved. No joint effusion. Medial compartment joint space narrowing is slightly more pronounced as compared to prior. No soft tissue abnormalities. XR/XR knee standing BI IMPRESSION: Mild medial and patellofemoral compartment osteoarthritis of the right knee. Medial compartment osteoarthritis is slightly more pronounced as compared to prior. Mild medial compartment osteoarthritis in the left knee.
== END 2021-12-11 07:43 | disposition home or self-care (01) ==
LOC: HO.HOSX 07:42
PROVIDERS: Visit Provider Physician Assistant
DX: M23.91 Unspecified internal derangement of right knee (principal); M25.562 Pain in left knee
CPT/HCPCS: 73560; 73565; 99202

== ENCOUNTER 2021-12-14 00:29 | Emergency (ER) | payer MEDICARE, MEDICAID, SELFPAY ==
--- NOTE | ~2021-12-14 | CT_ITS ---
EXAMINATION: CT HEAD WITHOUT CONTRAST CLINICAL INFORMATION: Severe headache COMPARISON: None TECHNIQUE: Contiguous axial imaging was performed from the skull base to vertex without intravenous administration of contrast. This CT examination was performed using dose optimization techniques as appropriate, variously including the following: *Automated exposure control *Adjustment of mA and/or kV according to patient size (this includes techniques or standardized protocols for targeted exams where dose is matched to indication/reason for exam; i.e. extremities or head) *Use of iterative reconstruction technique DLP: 712 mGy-cm FINDINGS: There is no evidence of acute intracranial hemorrhage or territorial infarction. No abnormal mass-effect or midline shift is seen. Mar[place] to white matter differentiation is well preserved. No extra-axial fluid collections are identified. The ventricles are normal in size. There is no abnormal attenuation within the brain parenchyma. The osseous structures and soft tissues are normal. There is mucosal thickening of the ethmoid air cells. The mastoid air cells are well-aerated. CT/CT head/brain wo con IMPRESSION: No acute intracranial pathology.
[2021-12-14 00:41] VITALS: BP 104/66; BP 117/66; PULSE 79; PULSE 84; RESP 16; TEMP 36.8; O2SAT 97; O2SAT 98; BMI 34.3
[2021-12-14 00:47] VITALS: BP 116/63; PULSE 85; RESP 20; TEMP 36.8; O2SAT 99
--- NOTE | 2021-12-14 00:58 | ECG_ITS ---
Test Reason : CP Blood Pressure : / mmHG Vent. Rate : 067 BPM Atrial Rate : 067 BPM P-R Int : 116 ms QRS Dur : 092 ms QT Int : 396 ms P-R-T Axes : -03 011 032 degrees QTc Int : 418 ms Normal sinus rhythm Normal ECG When compared with ECG of 09-AUG-2021 14:34, No significant change was found Referred By: Juana Contreras Electronically Signed By:JAVY ODONNELL
--- NOTE | 2021-12-14 01:18 | ED_ITS ---
HPI - Headache General Chief Complaint: Headache Stated Complaint: chest pressure/headache Time Seen by Provider: 12/14/21 00:52 Source: patient Mode of arrival: ambulatory Limitations: no limitations History of Present Illness HPI Narrative: Patient comes to the emergency room complaining of a severe headache that started approximately 2-3 hours ago. Patient states that the pain is mostly on top of her head. Patient did not take any medication before coming to the emergency room. Patient complaining of photophobia, nausea and vomiting, no vision changes. Patient states that she has been diagnosed previously with migraine headaches but she has not had 1 in a long time. Per triage note, earlier today patient had a bit of chest tightness, at this time patient denies any cardiac symptoms. Related Data Home Medications Medication Instructions Recorded Confirmed amlodipine 10 mg tablet 5 mg PO DAILY 04/16/21 04/16/21 gabapentin 300 mg capsule 300 mg PO TID 04/16/21 04/16/21 aripiprazole 5 mg tablet mg PO 12/11/21 ibuprofen 600 mg tablet mg PO 12/11/21 omeprazole 40 mg capsule,delayed mg PO 12/11/21 release trazodone 100 mg tablet mg PO 12/11/21 venlafaxine 150 mg mg PO 12/11/21 capsule,extended release 24 hr Previous Rx's Medication Instructions Recorded blood sugar diagnostic (FreeStyle #150 ea 04/16/21 Lite Strips) empagliflozin 10 mg tablet 10 mg PO QAM #30 tabs 04/16/21 (Jardiance) insulin aspart U-100 100 unit/mL 20 unit (0.2 mL) subcut TID 30 04/16/21 (3 mL) subcutaneous pen (Novolog days #30 mL Flexpen U-100 Insulin aspart) insulin degludec 200 unit/mL (3 90 unit (0.45 mL) subcut BEDTIME 04/16/21 mL) subcutaneous pen (Tresiba 30 days #18 mL FlexTouch U-200 insulin) naproxen 500 mg tablet 500 mg PO BID PRN pain #20 tabs 07/11/21 metformin 500 mg tablet,extended 500 mg PO BID #30 tabs 07/20/21 release 24 hr sumatriptan succinate 50 mg tablet See Rx Instructions PO .COMPLEX 12/14/21 #10 tabs Allergies Allergy/AdvReac Type Severity Reaction Status Date / Time penicillin V Allergy Unknown Hives Verified 12/11/21 08:18 Penicillins Allergy Unknown HIVES Verified 12/11/21 08:18 Review of Systems Review of Systems: Constitutional : No Weight loss, No Fever, No Chills, No Night Sweats, No Fatigue, No Malaise ENT/Mouth : No Hearing loss, No Ear Pain, No Nasal Congestion, No Sinus Pain, No Hoarseness, No sore throat, No Rhinorrhea, No Swallowing Difficulty Eyes: No Eye Pain, No Swelling, No Redness, No Foreign Body, No Discharge, No Vision Changes Cardiovascular : Chest pressure that self-resolved hours ago, No Chest Pain, No SOB, No Dyspnea on Exertion, No Orthopnea, No Edema, No Palpitations Respiratory : No Cough, No Sputum, No Wheezing, No Smoke Exposure, No Dyspnea Gastrointestinal : No Nausea, No Vomiting, No Diarrhea, No Constipation, No abdominal Pain, No Hematochezia, No Melena Genitourinary : no irregular bleeding, No Dysuria, No Urinary Frequency, No Hematuria, No Urinary Incontinence, No Urgency, No Flank Pain, No Urinary Flow Changes, No Hesitancy Musculoskeletal : No joint pain, No Myalgias, No Joint Swelling Skin : No Skin Lesions, No rash Neuro : No Weakness, No Numbness, No Paresthesias, No Loss of Consciousness, No Dizziness, complaining of severe headache, no neck pain or neurological deficits Psych : No Anxiety/Panic, No Depression, No SI/HI/AH/VH, No Social Issues, Heme/Lymph: No Bruising, No Bleeding,No Lymphadenopathy Endocrine : No Polyuria, No Polydipsia, No Temperature Intolerance [facility] Past Medical History Medical History Anxiety Bipolar 1 disorder Depressed Diabetes 1.5, managed as type 1 DM2 (diabetes mellitus, type 2) Surgical History History of dental surgery History of partial hysterectomy Social History Social History (Updated 12/11/21 @ 08:24 by Jazmin Serrato Dmitri) Household Members: Children Household Members Other:: daughter Alcohol intake: current Alcohol intake frequency: holidays/special occasions only Alcohol type: wine Patient Tobacco Use Status: Current everyday Tobacco user Smoked in Last 30 Days: Yes Use of substances other than those prescribed or required for medical reasons: Yes Substance Use Type: Marijuana Substance Use Frequency: Daily Advance Directives: No Advance Directives Information Provided: Yes Patient : No Current occupational status: disabled Physical Exam Vital Signs: Vital Signs: Last Vital Signs Temp 98.0 F 12/14/21 02:25 Pulse 70 12/14/21 02:25 Resp 17 12/14/21 02:25 BP 116/63 12/14/21 02:25 Pulse Ox 98 12/14/21 02:25 O2 Del Method 12/14/21 02:25 BMI result Body Mass Index 34.3 Const: Other: Appearance: Alert. Oriented X3. Seems very uncomfortable Eyes: Pupils equal, round and reactive to light. Photophobia, normal visual montes ENT: Pharynx normal. Neck: Normal inspection. Neck supple. No lymph nodes noted. No crepitus CVS: Normal heart rate and rhythm. Pulses normal. Normal S1 and S2 Respiratory: No respiratory distress. Breath sounds normal. No Wheezing. No rales Abdomen: Soft and nontender. No rigidity. No distention. Skin: Skin warm and dry. Normal skin color. Normal skin turgor. Extremities: No lower extremity edema. No Lacerations. No Rash Neuro: Oriented X 3. No motor deficit. No sensory deficit. Moving all extremities. No slurred speech. CN 2 through 12 grossly intact Psych: calm, cooperative, normal affect Course Course Course Narrative: Patient receiving IV fluids, IV Toradol, Reglan, Benadryl. I reviewed the CT scan, no obvious acute findings, report still pending Blood glucose 246 after 10 units of insulin and fluids 03:25, patient states that her headache completely resolved, head CT negative. MDM - Headache Lab Data Result diagrams: 12/14/21 01:39 12/14/21 01:39 Labs: Lab Results 12/14/21 12/14/21 12/14/21 Range/Units 01:39 01:39 01:39 WBC 11.0 H (4.8-10.8) X10*3/uL RBC 4.12 L (4.20-5.50) X10*6/uL Hgb 12.9 (12.0-16.0) g/dl Hct 37.9 (37.0-47.0) % MCV 92.0 (80.0-98.0) fL MCH 31.3 (27.0-33.0) pg MCHC 34.0 (31.0-35.0) g/dl RDW 12.3 (11.0-16.0) % Plt Count 187 (160-400) X10*3/uL MPV 11.4 (9.4-12.3) fL Immature Gran % (Auto) 0.3 (0.0-0.4) % Neut % (Auto) 47.9 (45-73) % Lymph % (Auto) 42.1 H (20-40) % [place] % (Auto) 6.7 (2-11) % Eos % (Auto) 2.7 (0-4) % Baso % (Auto) 0.3 (0-2) % Lymph # (Auto) 4.6 (1.2-4.9) X10*3/uL [place] # (Auto) 0.7 (0.1-1.2) X10*3/uL Eos # (Auto) 0.3 (0.0-0.4) X10*3/uL Baso # (Auto) 0.0 (0.0-0.2) X10*3/uL Abs Immat Gran (auto) 0.03 (0.00-0.03) X10*3/uL Absolute Neuts (auto) 5.3 (2.0-8.3) x10*3/uL Absolute Nucleated RBC 0.000 (0.0-0.012) X10*3/uL Nucleated RBC % (auto) 0.0 (0.0-0.2) /100WBC Sodium 136 (135-145) mmol/L Potassium 4.2 (3.3-5.1) mmol/L Chloride 102 (96-108) mmol/L Carbon Dioxide 22 (22-29) mmol/L Anion Gap 16 (12-20) BUN 22 H (9-16) mg/dL Creatinine 0.97 (0.5-1.4) mg/dL Estim Creat Clear Calc 69.8 Estimated GFR 59 Random Glucose 332 H (60-115) mg/dL Calcium 10.1 (8.4-10.2) mg/dL Troponin I High Sens 4.8 (<3.5-17.0) ng/L Imaging Data CT scan - head: Radiologist's impression: FINDINGS: There is no evidence of acute intracranial hemorrhage or territorial infarction. No abnormal mass-effect or midline shift is seen. Marley to white matter differentiation is well preserved. No extra-axial fluid collections are identified. The ventricles are normal in size. There is no abnormal attenuation within the brain parenchyma. The osseous structures and soft tissues are normal. There is mucosal thickening of the ethmoid air cells. The mastoid air cells are well-aerated. ? CT/CT head/brain wo con IMPRESSION: No acute intracranial pathology. Critical Care Time Critical Care Time Critical Care Time: Yes Total Critical Care Time: 30 Attestation: I have personally provided critical care time. Time includes review of lab data, radiology results, discussion with consultants, and monitoring for potential decompensation. Intervention performed as documented. Discharge Plan Discharge Clinical Impression: Headache, migraine, Atypical chest pain, Acute hyperglycemia Patient Disposition: Home, Self-Care Instructions: Chest Pain (ED), Acute Headache (ED), Diabetic Hyperglycemia (ED) Additional Instructions: Please follow-up with your primary care physician tomorrow. If you have any worsening or new symptoms, please return to the emergency room or call 911 Prescriptions: New sumatriptan succinate 50 mg tablet See Rx Instructions .ROUTE .COMPLEX Qty: 10 0RF Rx Instructions: take 1 tab at onset of headache; if no relief may repeat 1 tab after at least 2 hrs; max = 4 tabs/24 hr No Action metformin 500 mg tablet extended release 24 hr 500 mg PO BID Qty: 30 0RF naproxen 500 mg tablet 500 mg PO BID PRN (Reason: pain) Qty: 20 0RF aripiprazole 5 mg tablet PO trazodone 100 mg tablet PO omeprazole 40 mg capsule,delayed release(DR/EC) PO venlafaxine 150 mg capsule,extended release 24hr PO ibuprofen 600 mg tablet PO amlodipine 10 mg tablet 5 mg PO DAILY gabapentin 300 mg capsule 300 mg PO TID Jardiance 10 mg tablet 10 mg PO QAM Qty: 30 6RF Tresiba FlexTouch U-200 200 unit/mL (3 mL) insulin pen 90 unit subcut BEDTIME 30 Days Qty: 18 6RF insulin aspart U-100 [Novolog Flexpen U-100 Insulin] 100 unit/mL (3 mL) insulin pen 20 unit subcut TID 30 Days Qty: 30 6RF (DME) FreeStyle Lite Strips Strip See Rx Instructions .ROUTE .MEDSUPPLY Qty: 150 11RF Rx Instructions: As directed four times a day
--- NOTE | 2021-12-14 01:42 | PC.NURSE ---
Labs collected and sent as ordered
[2021-12-14] MEDS: diphenhydrAMINE HCL 50 MG/ML VIAL 25 MG IVPUSH (01:43)
[2021-12-14] MEDS: Ketorolac Tromethamine 30 MG/ML VIAL IVPUSH (01:43)
[2021-12-14] MEDS: Metoclopramide HCl 10 MG/2 ML VIAL IVPUSH (01:43)
[2021-12-14 01:44] LABS: Basophils Percent Auto 0.3 % (0-2); Eosinophils Absolute Auto 0.3 X10*3/uL (0.0-0.4); Eosinophils Percent Auto 2.7 % (0-4); Hematocrit 37.9 % (37.0-47.0); Hemoglobin 12.9 g/dl (12.0-16.0); Imm Gran Abs Auto 0.03 X10*3/uL (0.00-0.03); Imm Gran Pct Auto 0.3 % (0.0-0.4); Lymphocytes Absolute Auto 4.6 X10*3/uL (1.2-4.9); Lymphocytes Percent Auto 42.1 % (20-40); MANUAL DIFF FLAG NO; Mean Corpuscular Hemoglobin 31.3 pg (27.0-33.0); Mean Platelet Volume 11.4 fL (9.4-12.3); Monocytes Absolute Auto 0.7 X10*3/uL (0.1-1.2); Monocytes Percent Auto 6.7 % (2-11); Neutrophils Absolute Auto 5.3 x10*3/uL (2.0-8.3); Neutrophils Percent Auto 47.9 % (45-73); Platelet Count 187 X10*3/uL (160-400); Red Blood Count 4.12 X10*6/uL (4.20-5.50); Red Cell Distribution Width 12.3 % (11.0-16.0)
[2021-12-14] MEDS: 0.9 % Sodium Chloride 1,000 ML 999 ML IVCONT (01:44)
[2021-12-14 02:03] LABS: Troponin-I High Sensitivity 4.8 ng/L (<3.5-17.0)
[2021-12-14 02:04] LABS: Anion Gap 16 (12-20); Blood Urea Nitrogen 22 mg/dL (9-16); Calcium 10.1 mg/dL (8.4-10.2); Carbon Dioxide 22 mmol/L (22-29); Chloride 102 mmol/L (96-108); Creatinine Clr Calc Pharmacy 69.8; Estimated Glomerular Filt Rate 59; Glucose Random 332 mg/dL (60-115); Potassium 4.2 mmol/L (3.3-5.1); Sodium 136 mmol/L (135-145)
[2021-12-14] MEDS: Insulin Regular, Human 100 UNIT/ML 3 ML VIAL 10 UNIT IVPUSH (02:21)
[2021-12-14 02:25] VITALS: BP 116/63; PULSE 70; RESP 17; TEMP 36.7; O2SAT 98
--- NOTE | 2021-12-14 03:29 | PC.NURSE ---
POC [address] Dr Contreras aware
[2021-12-14 03:31] LABS: Glucose, Whole Blood 246 mg/dL (60-115)
== END 2021-12-14 03:52 | disposition home or self-care (01) ==
PROVIDERS: Emergency Provider Emergency Medicine
DX: G43.909 Migraine, unspecified, not intractable, without status migrainosus (principal); R07.89 Other chest pain; E11.65 Type 2 diabetes mellitus with hyperglycemia; F17.200 Nicotine dependence, unspecified, uncomplicated; F12.90 Cannabis use, unspecified, uncomplicated; Z79.84 Long term (current) use of oral hypoglycemic drugs
CPT/HCPCS: 36415; 70450; 80048; 82947; 84484; 85025; 93005; 96361; 96374; 96375; 99284; 99285; J1200; J1885; J2765

== ENCOUNTER 2021-12-28 18:03 | Outpatient (REF) | payer MEDICARE, MEDICAID, SELFPAY ==
--- NOTE | ~2021-12-28 | MR_ITS ---
EXAMINATION: MR KNEE WITHOUT CONTRAST, RIGHT CLINICAL INFORMATION: Right knee pain and swelling. Osteoarthritis. COMPARISON: Multiple priors, most recent right knee radiographs dated 12/11/2021. TECHNIQUE: MRI of the knee without contrast was performed using routine sequences on a high-field scanner. FINDINGS: MENISCI: Medial Meniscus: Near-complete radial tear of the posterior horn measuring 0.4 cm in ML dimension and located approximately 1.1 cm from the posterior root insertion. The posterior root is diffusely thickened and irregular. Oblique femoral articular surface tearing extends to the remaining posterior horn with degenerative intrasubstance signal in the medially extruded meniscal body. Lateral Meniscus: Intact LIGAMENTS: Cruciate: Intact Collateral: Intact EXTENSOR MECHANISM: Intact ARTICULAR CARTILAGE/BONE: Patellofemoral Compartment: Full-thickness lateral patellar facet articular cartilage fissuring with underlying subchondral cystic change. Inferior central trochlear articular cartilage signal heterogeneity. Tiny marginal osteophytes. Medial Compartment: Diffuse articular cartilage thinning and signal heterogeneity with tiny marginal osteophytes. Lateral Compartment: Mild articular cartilage signal heterogeneity with tiny marginal osteophytes. JOINT FLUID AND BURSAE: Small joint effusion and small Holliday's cyst. MR/MR knee RT wo con IMPRESSION: 1. Near-complete radial tear of the medial meniscus posterior horn located approximately 1.1 cm from the posterior root insertion. There is complex tearing of the posterior root as well as femoral articular surface tearing extending medially within the posterior horn. Medial extrusion of the meniscal body. 2. Vanv-fj-idfgeowe medial as well as mild patellofemoral and lateral compartment osteoarthritis. Small joint effusion and small Holliday's cyst.
== END 2021-12-28 18:04 | disposition home or self-care (01) ==
LOC: HO.MRI 18:03
PROVIDERS: Visit Provider Physician Assistant
DX: M17.11 Unilateral primary osteoarthritis, right knee (principal); M23.91 Unspecified internal derangement of right knee
CPT/HCPCS: 73721

== ENCOUNTER 2022-03-02 11:08 | Outpatient (REF) | payer MEDICARE, MEDICAID, SELFPAY ==
--- NOTE | ~2022-03-02 | XR_ITS ---
EXAMINATION: XR CHEST CLINICAL INFORMATION: Nonspecific reaction to gamma interferon. COMPARISON: 12/05/2020 chest radiograph. TECHNIQUE: 2 views of the chest were obtained. FINDINGS: No significant abnormality is noted involving the heart, lungs, mediastinum, bony thorax or soft tissues. XR/XR chest 2V IMPRESSION: No acute cardiopulmonary process.
== END 2022-03-02 11:09 | disposition home or self-care (01) ==
LOC: HO.XRAY 11:08
PROVIDERS: PCP Internal Medicine; Visit Provider Internal Medicine
DX: R76.12 Nonspecific reaction to cell mediated immunity measurement of gamma interferon antigen response without active tuberculosis (principal)
CPT/HCPCS: 71046

== ENCOUNTER → 2022-04-28 09:32 | Outpatient (BNVA) | payer MEDICARE, MEDICAID, SELFPAY | PROVIDERS: PCP Internal Medicine; Visit Provider Physician Assistant | DX: M23.91 Unspecified internal derangement of right knee (principal); S83.206A Unspecified tear of unspecified meniscus, current injury, right knee, initial encounter | CPT/HCPCS: 99212 ==

== ENCOUNTER 2022-08-25 19:04 | Emergency (ER) | payer MEDICARE, MEDICAID, SELFPAY ==
[2022-08-25 19:14] VITALS: BP 104/70; BP 114/70; PULSE 95; RESP 18; TEMP 36.8; O2SAT 97; BMI 36.0
[2022-08-25 19:25] LABS: Glucose, Whole Blood 481 mg/dL (60-115)
--- NOTE | 2022-08-25 19:27 | ED_ITS ---
HPI - General Adult General Chief complaint: Headache Stated complaint: HYPERGLYCEMIA, HEADACHE Time Seen by Provider: 08/25/22 19:17 Source: patient Mode of arrival: ambulatory Limitations: no limitations History of Present Illness HPI narrative: Patient type 2 diabetic on insulin MrHarrison dose of insulin today [place] felt hypoglycemic so had brodie and Lara at 16:00 having headache as usual when she gets migraine with nausea feeling tired check blood sugar at home was 504 and came to the ER no abdominal pain no vomiting no urinary symptoms patient's blood sugar been on higher side around 300 range most of the time. Related Data Home Medications Medication Instructions Recorded Confirmed amlodipine 10 mg tablet 5 mg PO DAILY 04/16/21 04/16/21 gabapentin 300 mg capsule 300 mg PO TID 04/16/21 04/16/21 aripiprazole 5 mg tablet mg PO 12/11/21 ibuprofen 600 mg tablet mg PO 12/11/21 omeprazole 40 mg capsule,delayed mg PO 12/11/21 release trazodone 100 mg tablet mg PO 12/11/21 venlafaxine 150 mg mg PO 12/11/21 capsule,extended release 24 hr Previous Rx's Medication Instructions Recorded blood sugar diagnostic (FreeStyle #150 ea 04/16/21 Lite Strips) empagliflozin 10 mg tablet 10 mg PO QAM #30 tabs 04/16/21 (Jardiance) insulin aspart U-100 100 unit/mL 20 unit (0.2 mL) subcut TID 30 04/16/21 (3 mL) subcutaneous pen (Novo days #30 mL FlexPen U-100 Insulin aspart) insulin degludec 200 unit/mL (3 90 unit (0.45 mL) subcut BEDTIME 04/16/21 mL) subcutaneous pen (Tresiba 30 days #18 mL FlexTouch U-200 insulin) naproxen 500 mg tablet 500 mg PO BID PRN pain #20 tabs 07/11/21 metformin 500 mg tablet,extended 500 mg PO BID #30 tabs 07/20/21 release 24 hr sumatriptan succinate 50 mg tablet See Rx Instructions PO .COMPLEX 12/14/21 #10 tabs celecoxib 200 mg capsule (Celebrex) 200 mg PO BID 30 days #60 caps 04/28/22 diclofenac sodium 1 % topical gel 4 g topical QID #100 grams 06/08/22 ugdyryiksb-rjjpklkixxfvs-qbvkwiez 1 cap PO Q6H PRN headache #20 caps 08/25/22 50 mg-300 mg-40 mg capsule (Fioricet) Allergies Allergy/AdvReac Type Severity Reaction Status Date / Time penicillin V Allergy Unknown Hives Verified 08/25/22 19:14 Penicillins Allergy Unknown HIVES Verified 08/25/22 19:14 Review of Systems Review of Systems: Yes all other systems are reviewed and are negative [facility] Past Medical History Medical History Anxiety Bipolar 1 disorder Depressed Diabetes 1.5, managed as type 1 DM2 (diabetes mellitus, type 2) Surgical History History of dental surgery History of partial hysterectomy Social History Social History Household Members: Children Household Members Other:: daughter Alcohol intake: current Alcohol intake frequency: holidays/special occasions only Alcohol type: wine Patient Tobacco Use Status: Current everyday Tobacco user Smoked in Last 30 Days: Yes Substance Use Type: Marijuana Advance Directives: No Advance Directives Information Provided: No Patient : No Current occupational status: disabled Physical Exam ED Vital Signs: Vital Signs - 24 hr 08/25/22 19:14 Temperature 98.3 F Pulse Rate 95 Respiratory Rate 18 Blood Pressure 114/70 Pulse Oximetry 97 Oxygen Delivery Method Room Air BMI result Body Mass Index 36.0 Appearance: Alert. Oriented X3. No acute distress. Eyes: PERRLA, No Nystagmus ENT: Pharynx normal. Oral Mucosa moist Neck: Normal inspection. Neck supple. CVS: Normal heart rate and rhythm. Pulses normal. Respiratory: No respiratory distress. Equal air entry bilateral, no wheezing/rales/rhonchi Abdomen: Soft and nontender. Bowel sounds are present, no mass palpable, no CVA tenderness Skin: Skin warm and dry. Normal skin color. Normal skin turgor. Extremities: No lower extremity edema. No calf tenderness Neuro: Oriented X 3. No motor deficit. No sensory deficit.No cerebellar signs , cranial nerves II-XII intact Medications Administered Discontinued Medications Generic Name Dose Route Start Last Admin Trade Name Freq PRN Reason Stop Dose Admin Sodium Chloride 1,000 mls @ 999 mls/hr 08/25/22 19:32 08/25/22 21:50 Ns IV 08/25/22 20:32 Infused .Q1H1M ONE Infusion Insulin Human Lispro 14 unit 08/25/22 19:32 08/25/22 19:42 Insulin Lispro 100 Unit/Ml 3 Ml Vial SUBCUT 08/25/22 19:33 14 unit ONCE ONE Administration Insulin Human Lispro 8 unit 08/25/22 21:22 08/25/22 21:48 Insulin Lispro 100 Unit/Ml 3 Ml Vial SUBCUT 08/25/22 21:23 8 unit ONCE ONE Administration Ondansetron HCl 4 mg 08/25/22 19:32 08/25/22 19:42 Ondansetron Hcl 4 Mg/2 Ml Vial IVPUSH 08/25/22 19:33 4 mg ONCE ONE Administration Sumatriptan Succinate 6 mg 08/25/22 19:32 08/25/22 19:41 Sumatriptan Succinate 6 Mg/0.5 Ml Vial SUBCUT 08/25/22 19:33 6 mg ONCE ONE Administration Medical Decision Making Medical Decision Making MDM Narrative: Patient diabetic missed her insulin also had high carbohydrate content food today. Came with hyperglycemia improved after IV hydration and insulin advised to continue her insulin and drink plenty of fluids and take special precautions about her food Lab Data [facility] Lab Attestation statement: I reviewed the patient's lab results. 08/25/22 19:28 08/25/22 19:28 Labs: Lab Results 08/25/22 08/25/22 08/25/22 Range/Units 19:21 19:28 19:28 WBC 9.1 (4.8-10.8) X10*3/uL RBC 4.49 (4.20-5.50) X10*6/uL Hgb 14.2 (12.0-16.0) g/dl Hct 41.4 (37.0-47.0) % MCV 92.2 (80.0-98.0) fL MCH 31.6 (27.0-33.0) pg MCHC 34.3 (31.0-35.0) g/dl RDW 12.4 (11.0-16.0) % Plt Count 182 (160-400) X10*3/uL MPV 11.7 (9.4-12.3) fL Immature Gran % (Auto) 0.3 (0.0-0.4) % Neut % (Auto) 60.5 (45-73) % Lymph % (Auto) 28.8 (20-40) % [place] % (Auto) 7.9 (2-11) % Eos % (Auto) 2.1 (0-4) % Baso % (Auto) 0.4 (0-2) % Lymph # (Auto) 2.6 (1.2-4.9) X10*3/uL [place] # (Auto) 0.7 (0.1-1.2) X10*3/uL Eos # (Auto) 0.2 (0.0-0.4) X10*3/uL Baso # (Auto) 0.0 (0.0-0.2) X10*3/uL Abs Immat Gran (auto) 0.03 (0.00-0.03) X10*3/uL Absolute Neuts (auto) 5.5 (2.0-8.3) x10*3/uL Absolute Nucleated RBC 0.000 (0.0-0.012) X10*3/uL Nucleated RBC % (auto) 0.0 (0.0-0.2) /100WBC Sodium 133 L (135-145) mmol/L Potassium 4.4 (3.3-5.1) mmol/L Chloride 103 (96-108) mmol/L Carbon Dioxide 17 L (22-29) mmol/L Anion Gap 17 (12-20) BUN 23 H (9-16) mg/dL Creatinine 1.32 (0.5-1.4) mg/dL Estim Creat Clear Calc 52.6 Estimated GFR 41 POC Glucose 481 H* (60-115) mg/dL Random Glucose 509 H* (60-115) mg/dL Calcium 10.0 (8.4-10.2) mg/dL 08/25/22 Range/Units 20:45 WBC (4.8-10.8) X10*3/uL RBC (4.20-5.50) X10*6/uL Hgb (12.0-16.0) g/dl Hct (37.0-47.0) % MCV (80.0-98.0) fL MCH (27.0-33.0) pg MCHC (31.0-35.0) g/dl RDW (11.0-16.0) % Plt Count (160-400) X10*3/uL MPV (9.4-12.3) fL Immature Gran % (Auto) (0.0-0.4) % Neut % (Auto) (45-73) % Lymph % (Auto) (20-40) % [place] % (Auto) (2-11) % Eos % (Auto) (0-4) % Baso % (Auto) (0-2) % Lymph # (Auto) (1.2-4.9) X10*3/uL [place] # (Auto) (0.1-1.2) X10*3/uL Eos # (Auto) (0.0-0.4) X10*3/uL Baso # (Auto) (0.0-0.2) X10*3/uL Abs Immat Gran (auto) (0.00-0.03) X10*3/uL Absolute Neuts (auto) (2.0-8.3) x10*3/uL Absolute Nucleated RBC (0.0-0.012) X10*3/uL Nucleated RBC % (auto) (0.0-0.2) /100WBC Sodium (135-145) mmol/L Potassium (3.3-5.1) mmol/L Chloride (96-108) mmol/L Carbon Dioxide (22-29) mmol/L Anion Gap (12-20) BUN (9-16) mg/dL Creatinine (0.5-1.4) mg/dL Estim Creat Clear Calc Estimated GFR POC Glucose 363 H* (60-115) mg/dL Random Glucose (60-115) mg/dL Calcium (8.4-10.2) mg/dL Discharge Plan Discharge Clinical Impression: Diabetes mellitus with hyperglycemia, Migraine Patient Disposition: Home, Self-Care Instructions: Migraine Headache (ED), Diabetic Hyperglycemia (ED) Additional Instructions: Take your insulin on time Drink plenty of fluids Diet restriction as advised Follow-up with your PCP/radio repairer domestic Fioricet for migraine headache Prescriptions: New yjerflqlgd-nytjismhbddbl-jszv [Fioricet] 50-300-40 mg capsule 1 cap PO Q6H PRN (Reason: headache) Qty: 20 0RF No Action metformin 500 mg tablet extended release 24 hr 500 mg PO BID Qty: 30 0RF diclofenac sodium 1 % gel 4 g topical QID Qty: 100 0RF Rx Instructions: apply to single knee, ankle, foot; for foot includes sole/toes/top of foot sumatriptan succinate 50 mg tablet See Rx Instructions .ROUTE .COMPLEX Qty: 10 0RF Rx Instructions: take 1 tab at onset of headache; if no relief may repeat 1 tab after at least 2 hrs; max = 4 tabs/24 hr naproxen 500 mg tablet 500 mg PO BID PRN (Reason: pain) Qty: 20 0RF aripiprazole 5 mg tablet PO trazodone 100 mg tablet PO omeprazole 40 mg capsule,delayed release(DR/EC) PO venlafaxine 150 mg capsule,extended release 24hr PO ibuprofen 600 mg tablet PO amlodipine 10 mg tablet 5 mg PO DAILY gabapentin 300 mg capsule 300 mg PO TID Jardiance 10 mg tablet 10 mg PO QAM Qty: 30 6RF Tresiba FlexTouch U-200 200 unit/mL (3 mL) insulin pen 90 unit subcut BEDTIME 30 Days Qty: 18 6RF insulin aspart U-100 [Novolog FlexPen U-100 Insulin] 100 unit/mL (3 mL) insulin pen 20 unit subcut TID 30 Days Qty: 30 6RF (DME) FreeStyle Lite Strips Strip See Rx Instructions .ROUTE .MEDSUPPLY Qty: 150 11RF Rx Instructions: As directed four times a day celecoxib [Celebrex] 200 mg capsule 200 mg PO BID 30 Days Qty: 60 3RF Referrals: Brittany Feng MD [Physician] - 1 week Interventions: ED Discharge Assessment Last Done: 08/25/22 22:04 Discharge Date/Time: 08/25/22 22:10
[2022-08-25 19:33] LABS: MANUAL DIFF FLAG NO
[2022-08-25 19:37] LABS: Basophils Percent Auto 0.4 % (0-2); Eosinophils Absolute Auto 0.2 X10*3/uL (0.0-0.4); Eosinophils Percent Auto 2.1 % (0-4); Hematocrit 41.4 % (37.0-47.0); Hemoglobin 14.2 g/dl (12.0-16.0); Imm Gran Abs Auto 0.03 X10*3/uL (0.00-0.03); Imm Gran Pct Auto 0.3 % (0.0-0.4); Lymphocytes Absolute Auto 2.6 X10*3/uL (1.2-4.9); Lymphocytes Percent Auto 28.8 % (20-40); Mean Corpuscular HGB Conc 34.3 g/dl (31.0-35.0); Mean Corpuscular Hemoglobin 31.6 pg (27.0-33.0); Mean Corpuscular Volume 92.2 fL (80.0-98.0); Mean Platelet Volume 11.7 fL (9.4-12.3); Monocytes Absolute Auto 0.7 X10*3/uL (0.1-1.2); Monocytes Percent Auto 7.9 % (2-11); Neutrophils Absolute Auto 5.5 x10*3/uL (2.0-8.3); Neutrophils Percent Auto 60.5 % (45-73); Platelet Count 182 X10*3/uL (160-400); Red Blood Count 4.49 X10*6/uL (4.20-5.50); Red Cell Distribution Width 12.4 % (11.0-16.0); White Blood Count 9.1 X10*3/uL (4.8-10.8)
[2022-08-25] MEDS: SUMAtriptan succinate 6 MG/0.5 ML VIAL SUBCUT (19:41)
[2022-08-25] MEDS: ondansetron HCL 4 MG/2 ML VIAL IVPUSH (19:42)
[2022-08-25] MEDS: 0.9 % Sodium Chloride 1,000 ML 999 ML IV (19:42)
[2022-08-25] MEDS: Insulin Lispro 100 UNIT/ML 3 ML VIAL 14 UNIT SUBCUT (19:42)
[2022-08-25 20:19] LABS: Anion Gap 17 (12-20); Blood Urea Nitrogen 23 mg/dL (9-16); Carbon Dioxide 17 mmol/L (22-29); Chloride 103 mmol/L (96-108); Creatinine Clr Calc Pharmacy 52.6; Estimated Glomerular Filt Rate 41; Glucose Random 509 mg/dL (60-115); Potassium 4.4 mmol/L (3.3-5.1); Sodium 133 mmol/L (135-145)
--- NOTE | 2022-08-25 20:21 | ECG_ITS ---
Test Reason : CP Blood Pressure : / mmHG Vent. Rate : 084 BPM Atrial Rate : 084 BPM P-R Int : 146 ms QRS Dur : 086 ms QT Int : 342 ms P-R-T Axes : 071 008 039 degrees QTc Int : 404 ms Normal sinus rhythm Normal ECG When compared with ECG of 14-DEC-2021 02:47, No significant change was found Referred By: Ilya Tan Electronically Signed By:ELIZABETH MEEK
--- NOTE | 2022-08-25 20:22 | PC.NURSE ---
pt rang callbell for rn to come to room. pt reports to this rn, new chest pain. dr mcgovern made aware of pt reports ekg order placed. and obtained at this time
[2022-08-25 20:48] LABS: Glucose, Whole Blood 363 mg/dL (60-115)
[2022-08-25] MEDS: Insulin Lispro 100 UNIT/ML 3 ML VIAL 8 UNIT SUBCUT (21:48)
== END 2022-08-25 22:10 | disposition home or self-care (01) ==
PROVIDERS: Emergency Provider Internal Medicine
DX: E11.65 Type 2 diabetes mellitus with hyperglycemia (principal); G43.909 Migraine, unspecified, not intractable, without status migrainosus; F17.200 Nicotine dependence, unspecified, uncomplicated; F12.90 Cannabis use, unspecified, uncomplicated; F31.9 Bipolar disorder, unspecified; Z79.4 Long term (current) use of insulin; Z79.899 Other long term (current) drug therapy
CPT/HCPCS: 36415; 80048; 82947; 85025; 93005; 96361; 96372; 96374; 99284; J2405; J3030

== ENCOUNTER 2022-09-09 13:48 | Emergency (ER) | payer MEDICARE, MEDICAID, SELFPAY ==
--- NOTE | ~2022-09-09 | XR_ITS ---
EXAMINATION: XR CHEST CLINICAL INFORMATION: Chest pain COMPARISON: None available. TECHNIQUE: Frontal view of the chest was obtained. FINDINGS: No significant abnormality is noted involving the heart, lungs, mediastinum, bony thorax or soft tissues. XR/XR chest 1V IMPRESSION: Unremarkable chest examination.
[2022-09-09 14:01] VITALS: BP 131/70; BP 159/74; PULSE 84; PULSE 88; RESP 18; TEMP 36.6; O2SAT 100; O2SAT 99; BMI 33.3
--- NOTE | 2022-09-09 14:10 | ECG_ITS ---
Test Reason : chest pain Blood Pressure : / mmHG Vent. Rate : 085 BPM Atrial Rate : 085 BPM P-R Int : 118 ms QRS Dur : 088 ms QT Int : 344 ms P-R-T Axes : -09 -04 018 degrees QTc Int : 409 ms Normal sinus rhythm Normal ECG When compared with ECG of 25-AUG-2022 20:22, No significant change was found Referred By: Generic ED Physician Electronically Signed By:ELIZABETH MEEK
--- NOTE | 2022-09-09 14:17 | ED.CHESTPAIN ---
HPI - Chest Pain General Chief Complaint: Chest Pain Stated Complaint: chest pain radiates to jaw Time Seen by Provider: 09/09/22 14:17 Source: patient Mode of arrival: EMS Limitations: no limitations History of Present Illness HPI narrative: 56-year-old female who presents emergency department for evaluation of chest pain. The patient states that she was washing dishes at noon she then had a sudden onset of left-sided chest pain. She describes the pain is a stabbing, tightness like pain which is 6/10 at its worst. The pain does not change with breathing or with movement. She had associated nausea with no vomiting. She denied diaphoresis or lightheadedness. She did feel short of breath. She also states that she developed a headache which she describes as a diffuse throbbing sensation which is 8/10. Patient states she had a similar presentation on 08/25/2022. She was treated that time with Zofran IV and sumatriptan 6 mg IM. She states that the sumatriptan gave her tachycardia and made her feel worse. She states she does have a history of migraine headaches. She states that when she woke up this morning she felt a pain in her right neck area and she states this area is tender to palpation. She denied fever, chills, rhinorrhea, sore throat, cough. Related Data Home Medications Medication Instructions Recorded Confirmed amlodipine 10 mg tablet 5 mg PO DAILY 04/16/21 04/16/21 gabapentin 300 mg capsule 300 mg PO TID 04/16/21 04/16/21 aripiprazole 5 mg tablet mg PO 12/11/21 ibuprofen 600 mg tablet mg PO 12/11/21 omeprazole 40 mg capsule,delayed mg PO 12/11/21 release trazodone 100 mg tablet mg PO 12/11/21 venlafaxine 150 mg mg PO 12/11/21 capsule,extended release 24 hr Previous Rx's Medication Instructions Recorded blood sugar diagnostic (FreeStyle #150 ea 04/16/21 Lite Strips) empagliflozin 10 mg tablet 10 mg PO QAM #30 tabs 04/16/21 (Jardiance) insulin aspart U-100 100 unit/mL 20 unit (0.2 mL) subcut TID 30 04/16/21 (3 mL) subcutaneous pen (Novolog days #30 mL FlexPen U-100 Insulin aspart) insulin degludec 200 unit/mL (3 90 unit (0.45 mL) subcut BEDTIME 04/16/21 mL) subcutaneous pen (Tresiba 30 days #18 mL FlexTouch U-200 insulin) naproxen 500 mg tablet 500 mg PO BID PRN pain #20 tabs 07/11/21 metformin 500 mg tablet,extended 500 mg PO BID #30 tabs 07/20/21 release 24 hr sumatriptan succinate 50 mg tablet See Rx Instructions PO .COMPLEX 12/14/21 #10 tabs celecoxib 200 mg capsule (Celebrex) 200 mg PO BID 30 days #60 caps 04/28/22 diclofenac sodium 1 % topical gel 4 g topical QID #100 grams 06/08/22 ehfmfzybws-rqinjglyrqbiq-fltzbkrn 1 cap PO Q6H PRN headache #20 caps 08/25/22 50 mg-300 mg-40 mg capsule (Fioricet) metoclopramide HCl 10 mg tablet 10 mg PO Q6H PRN nausea and 09/09/22 (Reglan) vomiting #14 tabs Allergies Allergy/AdvReac Type Severity Reaction Status Date / Time penicillin V Allergy Unknown Hives Verified 08/25/22 19:14 Penicillins Allergy Unknown HIVES Verified 08/25/22 19:14 Review of Systems Review of Systems: Yes all other systems are reviewed and are negative PMFSH Past Medical History Medical History Anxiety Bipolar 1 disorder Depressed Diabetes 1.5, managed as type 1 DM2 (diabetes mellitus, type 2) Surgical History History of dental surgery History of partial hysterectomy Social History Social History Household Members: Children Household Members Other:: daughter Alcohol intake: current Alcohol intake frequency: does not drink Alcohol type: wine Patient Tobacco Use Status: Current everyday Tobacco user Smoked in Last 30 Days: Yes Use of substances other than those prescribed or required for medical reasons: Yes Substance Use Type: Marijuana Substance Use Frequency: Occasionally Advance Directives: No Advance Directives Information Provided: Yes Current occupational status: disabled Physical Exam Vital Signs: Vital Signs: Last Vital Signs Temp 97.9 F 09/09/22 14:01 Pulse 84 09/09/22 14:01 Resp 18 09/09/22 14:01 BP 131/70 09/09/22 14:01 Pulse Ox 99 09/09/22 14:01 O2 Del Method Room Air 09/09/22 14:01 BMI result Body Mass Index 33.3 Const: Other: Awake, alert, female patient, very pleasant and cooperative, appears to be in distress secondary to her chest pain in her headache, answers all questions appropriately HEENT: Head: Yes normal to inspection, Yes normocephalic and Yes atraumatic Ears: external ears normal General nose exam: Normal external nose present Face and sinus: Yes normal facial exam Mouth: Normal oral and palatal mucosa present Throat: Yes posterior oropharynx normal Eyes: General: appearance normal, both eyes and all related structures Pupils: Equal, round and reactive pupils present Neck: Neck: Yes normal visual inspection, Yes no lymphadenopathy, Yes trachea midline and Yes supple Chest: Chest palpation & inspection: normal inspection of the chest and normal palpation of entire chest wall Resp: Effort & Inspection: normal respiratory effort and able to speak in complete sentences Auscultation: clear to auscultation bilaterally Cardio: Rate: regular rate Rhythm: regular rhythm Heart sounds: S1 normal heart sound present, S2 normal heart sound present and no murmurs GI: Inspection: Yes normal to inspection Palpation (GI): Soft to palpation, nontender and no guarding Auscultation: normal bowel sounds : General: Yes no CVA tenderness Back/Spine/Pelvis: Back: no CVA tenderness Skin: General skin exam: no rashes or lesions noted Neuro: Cranial nerves: Yes CN's II-XII intact bilaterally and Yes Equal, round and reactive pupils present Cognition (Neuro): normal cognition Motor exam (neuro): 5/5 motor strength present throughout Extrem: General: Yes normal to inspection Psych: Appearance: grossly normal Speech and movement: Normal speech and movement present Affect: normal affect Attitude: cooperative Medications Administered Discontinued Medications Generic Name Dose Route Start Last Admin Trade Name Freq PRN Reason Stop Dose Admin Diphenhydramine HCl 50 mg 09/09/22 14:30 09/09/22 15:04 Diphenhydramine Hcl 50 Mg/Ml Vial IVPUSH 09/09/22 14:31 50 mg ONCE STA Administration Sodium Chloride 1,000 mls @ 999 mls/hr 09/09/22 14:58 09/09/22 15:15 Ns IV 09/09/22 15:58 999 mls/hr .Q1H1M STA Administration Ketorolac Tromethamine 15 mg 09/09/22 14:30 09/09/22 15:04 Ketorolac Tromethamine 15 Mg/Ml Vial IVPUSH 09/09/22 14:31 15 mg ONCE STA Administration Metoclopramide HCl 10 mg 09/09/22 14:30 09/09/22 15:05 Metoclopramide Hcl 10 Mg/2 Ml Vial IVPUSH 09/09/22 14:31 10 mg ONCE STA Administration Medical Decision Making Medical Decision Making [facility] Narrative: 56-year-old female with a history of diabetes mellitus, diabetic neuropathy, depression, anxiety, bipolar disorder who presents emergency department for evaluation of sudden onset left-sided chest tightness/stabbing pain that occurred while she was washing discharges at noon time. The pain is been constant since onset and is 7/10. She had associated nausea, shortness of breath and headache. She states she had a similar presentation on 08/25/2022. Vital signs were normal. Physical examination was unremarkable. I ordered a CBC, BMP, troponin, chest x-ray and EKG. 1615: My interpretation patient's laboratory evaluation is as follows: CBC was normal. BMP revealed an elevated glucose of 398. High sensitive troponin I was detectable but not elevated at 4.4. My interpretation of the patient's chest x-ray is no acute disease. The patient is feeling better after the above treatment. The patient will be started on the following migraine regimen: Reglan 10 mg, Benadryl 50 mg and Excedrin migraine every 6 hours Differential Diagnosis Differential diagnosis includes but is not limited to musculoskeletal pain, myocardial infarction, pneumonia, migraine headache Lab Data [facility] Lab Attestation statement: I reviewed the patient's lab results. 09/09/22 14:33 09/09/22 14:33 Labs: Lab Results 09/09/22 09/09/22 09/09/22 Range/Units 14:33 14:33 14:33 WBC 10.6 (4.8-10.8) X10*3/uL RBC 4.58 (4.20-5.50) X10*6/uL Hgb 14.8 (12.0-16.0) g/dl Hct 43.1 (37.0-47.0) % MCV 94.1 (80.0-98.0) fL MCH 32.3 (27.0-33.0) pg MCHC 34.3 (31.0-35.0) g/dl RDW 12.6 (11.0-16.0) % Plt Count 196 (160-400) X10*3/uL MPV 11.5 (9.4-12.3) fL Immature Gran % (Auto) 0.6 H (0.0-0.4) % Neut % (Auto) 67.8 (45-73) % Lymph % (Auto) 23.2 (20-40) % [place] % (Auto) 6.8 (2-11) % Eos % (Auto) 1.1 (0-4) % Baso % (Auto) 0.5 (0-2) % Lymph # (Auto) 2.5 (1.2-4.9) X10*3/uL [place] # (Auto) 0.7 (0.1-1.2) X10*3/uL Eos # (Auto) 0.1 (0.0-0.4) X10*3/uL Baso # (Auto) 0.1 (0.0-0.2) X10*3/uL Abs Immat Gran (auto) 0.06 H (0.00-0.03) X10*3/uL Absolute Neuts (auto) 7.2 (2.0-8.3) x10*3/uL Absolute Nucleated RBC 0.000 (0.0-0.012) X10*3/uL Nucleated RBC % (auto) 0.0 (0.0-0.2) /100WBC Sodium 137 (135-145) mmol/L Potassium 4.5 (3.3-5.1) mmol/L Chloride 106 (96-108) mmol/L Carbon Dioxide 22 (22-29) mmol/L Anion Gap 14 (12-20) BUN 15 (9-16) mg/dL Creatinine 1.08 (0.5-1.4) mg/dL Estim Creat Clear Calc 61.6 Estimated GFR 52 Random Glucose 398 H* (60-115) mg/dL Calcium 9.8 (8.4-10.2) mg/dL Troponin I High Sens 4.4 (<3.5-17.0) ng/L Independent Interpretation I performed an independent interpretation of an: EKG Interpretation: My independent interpretation patient's 12 EKG done at 14:11 hours is as follows: Normal sinus rhythm with a rate of 85, normal TX, QRS duration QTC interval, no ST segment elevation, no ST segment depression, inverted T-wave in lead 3, no PACs, no PVCs when compared to EKG dated 08/25/2022 there is no significant change. Radiology Impression Discussion of test interpretation with radiology: I have reviewed the radiologist's reading. Discharge Plan Discharge Clinical Impression: Chest pain Qualifiers: Chest pain type: unspecified Qualified Code(s): R07.9 - Chest pain, unspecified Migraine Qualifiers: Migraine type: without aura Status migrainosus presence: without status migrainosus Intractability: not intractable Qualified Code(s): G43.009 - Migraine without aura, not intractable, without status migrainosus Patient Disposition: Home, Self-Care Additional Instructions: Your EKG was unremarkable. Your chest x-ray was normal. Your kidney function and electrolytes were normal Your glucose was elevated at 398-make sure you increase your fluid intake, stay on a diabetic diet and take your diabetes medicines as prescribed by your doctor/provider. Your chest pain today is most likely caused by inflammation of the joints of your chest or muscles and not heart damage/heart attack. Your headache symptoms are consistent with a migraine. I want you to take the following 3 medications together every 6 hours as needed for headache, nausea or vomiting. Reglan (metoclopramide) in 10 mg, 1 pill Benadryl 25 mg, 2 pills Excedrin migraine, 2 pills. After you take these medications, lie down in a dark quiet room and try to fall asleep. These medications will make you sleepy, do not drive or work after taking these medications. Follow-up with your doctor in 2 days. Please return to the emergency department if your symptoms get worse or if you develop any symptoms that are concerning to you. Follow-up with your doctor in 2 days. Please return to the emergency department if your symptoms get worse or if you develop any symptoms that are concerning to you. Prescriptions: New metoclopramide HCl [Reglan] 10 mg tablet 10 mg PO Q6H PRN (Reason: nausea and vomiting) Qty: 14 0RF No Action metformin 500 mg tablet extended release 24 hr 500 mg PO BID Qty: 30 0RF diclofenac sodium 1 % gel 4 g topical QID Qty: 100 0RF Rx Instructions: apply to single knee, ankle, foot; for foot includes sole/toes/top of foot sumatriptan succinate 50 mg tablet See Rx Instructions .ROUTE .COMPLEX Qty: 10 0RF Rx Instructions: take 1 tab at onset of headache; if no relief may repeat 1 tab after at least 2 hrs; max = 4 tabs/24 hr naproxen 500 mg tablet 500 mg PO BID PRN (Reason: pain) Qty: 20 0RF xeflqqqdbm-mianyotxnankg-wcnj [Fioricet] 50-300-40 mg capsule 1 cap PO Q6H PRN (Reason: headache) Qty: 20 0RF aripiprazole 5 mg tablet PO trazodone 100 mg tablet PO omeprazole 40 mg capsule,delayed release(DR/EC) PO venlafaxine 150 mg capsule,extended release 24hr PO ibuprofen 600 mg tablet PO amlodipine 10 mg tablet 5 mg PO DAILY gabapentin 300 mg capsule 300 mg PO TID Jardiance 10 mg tablet 10 mg PO QAM Qty: 30 6RF Tresiba FlexTouch U-200 200 unit/mL (3 mL) insulin pen 90 unit subcut BEDTIME 30 Days Qty: 18 6RF insulin aspart U-100 [Novolog FlexPen U-100 Insulin] 100 unit/mL (3 mL) insulin pen 20 unit subcut TID 30 Days Qty: 30 6RF (DME) FreeStyle Lite Strips Strip See Rx Instructions .ROUTE .MEDSUPPLY Qty: 150 11RF Rx Instructions: As directed four times a day celecoxib [Celebrex] 200 mg capsule 200 mg PO BID 30 Days Qty: 60 3RF
[2022-09-09 14:39] LABS: MANUAL DIFF FLAG NO
[2022-09-09 14:47] LABS: Basophils Absolute Auto 0.1 X10*3/uL (0.0-0.2); Basophils Percent Auto 0.5 % (0-2); Eosinophils Absolute Auto 0.1 X10*3/uL (0.0-0.4); Eosinophils Percent Auto 1.1 % (0-4); Hematocrit 43.1 % (37.0-47.0); Hemoglobin 14.8 g/dl (12.0-16.0); Imm Gran Abs Auto 0.06 X10*3/uL (0.00-0.03); Imm Gran Pct Auto 0.6 % (0.0-0.4); Lymphocytes Absolute Auto 2.5 X10*3/uL (1.2-4.9); Lymphocytes Percent Auto 23.2 % (20-40); Mean Corpuscular HGB Conc 34.3 g/dl (31.0-35.0); Mean Corpuscular Hemoglobin 32.3 pg (27.0-33.0); Mean Corpuscular Volume 94.1 fL (80.0-98.0); Mean Platelet Volume 11.5 fL (9.4-12.3); Monocytes Absolute Auto 0.7 X10*3/uL (0.1-1.2); Monocytes Percent Auto 6.8 % (2-11); Neutrophils Absolute Auto 7.2 x10*3/uL (2.0-8.3); Neutrophils Percent Auto 67.8 % (45-73); Platelet Count 196 X10*3/uL (160-400); Red Blood Count 4.58 X10*6/uL (4.20-5.50); Red Cell Distribution Width 12.6 % (11.0-16.0); White Blood Count 10.6 X10*3/uL (4.8-10.8)
[2022-09-09 14:58] LABS: Anion Gap 14 (12-20); Blood Urea Nitrogen 15 mg/dL (9-16); Calcium 9.8 mg/dL (8.4-10.2); Carbon Dioxide 22 mmol/L (22-29); Chloride 106 mmol/L (96-108); Creatinine Clr Calc Pharmacy 61.6; Estimated Glomerular Filt Rate 52; Glucose Random 398 mg/dL (60-115); Potassium 4.5 mmol/L (3.3-5.1); Sodium 137 mmol/L (135-145)
[2022-09-09 15:02] LABS: Troponin-I High Sensitivity 4.4 ng/L (<3.5-17.0)
[2022-09-09] MEDS: Ketorolac Tromethamine 15 MG/ML VIAL IVPUSH (15:04)
[2022-09-09] MEDS: diphenhydrAMINE HCL 50 MG/ML VIAL IVPUSH (15:04)
[2022-09-09] MEDS: Metoclopramide HCl 10 MG/2 ML VIAL IVPUSH (15:05)
[2022-09-09] MEDS: 0.9 % Sodium Chloride 1,000 ML 999 ML IV (15:15)
--- NOTE | 2022-09-09 15:30 | PC.NURSE ---
pt reporting 8/10 head pain and 7/10 chest pain. pt medicated per mar. IV line placed by EMS blew. new line obtained in RAC 20G. pt resting quietly on stretcher in no apparent distress. awaiting lab results. rr even/unlabored. wctm
== END 2022-09-09 16:59 | disposition home or self-care (01) ==
PROVIDERS: Emergency Provider Emergency Medicine Emergency Medical Services; PCP Internal Medicine
DX: R07.89 Other chest pain (principal); G43.009 Migraine without aura, not intractable, without status migrainosus; R68.84 Jaw pain; Z79.899 Other long term (current) drug therapy
CPT/HCPCS: 36415; 71045; 80048; 84484; 85025; 93005; 96374; 96375; 99285; J1200; J1885; J2765

== ENCOUNTER 2023-01-07 12:04 | Emergency (ER) | payer MEDICARE, MEDICAID, SELFPAY ==
--- NOTE | ~2023-01-07 | CT_ITS ---
EXAMINATION: CT ABDOMEN AND PELVIS WITH CONTRAST CLINICAL INFORMATION: Epigastric pain. COMPARISON: CT abdomen/pelvis 08/09/2021. TECHNIQUE: Multidetector volumetric images were obtained from the superior aspect of the liver through the pubic symphysis following administration 85 mL of Omnipaque 350 intravenous contrast. Sagittal and coronal reformatted images were obtained on the technologist's workstation. Oral contrast: No This CT examination was performed using dose optimization techniques as appropriate, variously including the following: *Automated exposure control *Adjustment of mA and/or kV according to patient size (this includes techniques or standardized protocols for targeted exams where dose is matched to indication/reason for exam; i.e. extremities or head) *Use of iterative reconstruction technique DLP: 658 mGy-cm FINDINGS: LUNG BASES: No focal consolidation or pleural effusion. LIVER, GALLBLADDER, AND BILIARY TREE: The liver is enlarged measuring 21 cm craniocaudally and demonstrates decreased attenuation most suggestive of hepatic steatosis. Otherwise, it is normal in shape. A too small to characterize hypodensity in the posterior inferior right hepatic lobe (3:35) is unchanged compared to 08/09/2021. Cholecystectomy. Stable mild nonspecific dilatation of the common bile duct, most likely associated with post cholecystectomy state. No intrahepatic biliary ductal dilatation. PANCREAS: No main ductal dilatation. No significant peripancreatic free fluid or fat stranding. SPLEEN: Unremarkable. ADRENAL GLANDS: A 0.5 cm macroscopic fat-containing right adrenal myelolipoma is unchanged, for which no imaging follow-up is recommended. Normal left adrenal gland KIDNEYS AND URETERS: The kidneys are normal in size, shape, and attenuation. Redemonstration of a simple Bosniak 1 cyst in the lower pole the right kidney, for which no imaging follow-up is recommended. A few additional too small to characterize cortical hypodensities, for instance as visualized in the lower pole of the left kidney (sagittal image 42, series 7), statistically favoring to represent simple cysts for which no imaging follow-up is recommended. No hydronephrosis, hydroureter, or calculi seen. No perinephric stranding. BLADDER: Unremarkable. GASTROINTESTINAL TRACT: The stomach and the small bowel are nondilated. Normal appendix. Fluid distention of the ascending and transverse colon which could be seen with diarrhea. No significant pericolonic fat stranding or free fluid. No evidence of bowel obstruction. ABDOMINAL WALL: Unchanged small fat-containing umbilical hernia. LYMPH NODES: Stable prominent periportal lymph nodes measuring up to 9 mm in short axis. VASCULAR: Scattered moderate atherosclerotic disease. Normal caliber of the abdominal aorta. PELVIC VISCERA: Hysterectomy. No pelvic mass. OSSEOUS STRUCTURES: Degenerative changes of the spine. Chronic fracture of the left transverse process at the level of L2 and L3. No acute or aggressive appearing osseous findings. CT/CT abdomen pelvis w IV con IMPRESSION: 1. Fluid distention of the ascending and transverse colon which could be seen with diarrhea in the appropriate clinical context. No significant pericolonic fat stranding or free fluid. No evidence of bowel obstruction. 2. Hepatomegaly and hepatic steatosis. 3. Small fat-containing umbilical hernia.
[2023-01-07 12:14] VITALS: BP 142/72; PULSE 71; O2SAT 100
[2023-01-07 12:17] VITALS: BP 113/38; PULSE 83; RESP 24; TEMP 36.6; O2SAT 99; BMI 33.9
[2023-01-07 13:25] LABS: MANUAL DIFF FLAG NO
[2023-01-07 13:28] LABS: Appearance Urine Cloudy; Color Urine Yellow; Glucose Urine UA 250 mg/dL (Negative); Leukocyte Esterase Urine Negative (Negative); Nitrite Urine Negative (Negative); PH 5.5 (5.0-9.0); UMIC TRIGGER UACC YES; Urine Blood Negative (Negative); Urine Ketones Negative (Negative); Urine Protein 100 (2+) mg/dL (Neg-Trace)
[2023-01-07 13:29] LABS: Basophils Percent Auto 0.3 % (0-2); Eosinophils Absolute Auto 0.3 X10*3/uL (0.0-0.4); Eosinophils Percent Auto 3.8 % (0-4); Hemoglobin 14.4 g/dl (12.0-16.0); Imm Gran Abs Auto 0.05 X10*3/uL (0.00-0.03); Imm Gran Pct Auto 0.6 % (0.0-0.4); Lymphocytes Absolute Auto 2.5 X10*3/uL (1.2-4.9); Lymphocytes Percent Auto 28.5 % (20-40); Mean Corpuscular HGB Conc 33.5 g/dl (31.0-35.0); Mean Corpuscular Hemoglobin 31.8 pg (27.0-33.0); Mean Corpuscular Volume 94.9 fL (80.0-98.0); Mean Platelet Volume 11.2 fL (9.4-12.3); Monocytes Absolute Auto 0.5 X10*3/uL (0.1-1.2); Neutrophils Absolute Auto 5.2 x10*3/uL (2.0-8.3); Neutrophils Percent Auto 60.8 % (45-73); Platelet Count 186 X10*3/uL (160-400); Red Blood Count 4.53 X10*6/uL (4.20-5.50); Red Cell Distribution Width 12.4 % (11.0-16.0); White Blood Count 8.6 X10*3/uL (4.8-10.8)
[2023-01-07 13:31] LABS: Bacteria Urine 4+ (None Seen); RBC Urine 0-2 /HPF (0-2); Squamous Epithelial Cell Urine >20 /HPF (0-2); WBC Urine 0-5 /HPF (0-5)
--- NOTE | 2023-01-07 13:48 | ECG_ITS ---
Test Reason : abd pain Blood Pressure : / mmHG Vent. Rate : 073 BPM Atrial Rate : 073 BPM P-R Int : 108 ms QRS Dur : 082 ms QT Int : 372 ms P-R-T Axes : -11 013 032 degrees QTc Int : 409 ms Sinus rhythm with short NC Otherwise normal ECG When compared with ECG of 09-SEP-2022 14:11, No significant change was found Referred By: Joelle Talley Electronically Signed By:JAVY ODONNELL
[2023-01-07 13:56] LABS: Alanine Aminotransferase 10 U/L (0-31); Albumin Level 3.7 g/dL (3.5-5.0); Alkaline Phosphatase 103 U/L (39-117); Anion Gap 15 (12-20); Aspartate Amino Transferase 13 U/L (5-31); Bilirubin Total 0.3 mg/dL (0.0-1.0); Blood Urea Nitrogen 23 mg/dL (9-16); Calcium 10.6 mg/dL (8.4-10.2); Carbon Dioxide 19 mmol/L (22-29); Chloride 106 mmol/L (96-108); Creatinine Clr Calc Pharmacy 65.7; Estimated Glomerular Filt Rate 56; Glucose Random 235 mg/dL (60-115); Potassium 4.8 mmol/L (3.3-5.1); Sodium 135 mmol/L (135-145); Total Protein 7.5 g/dL (6.5-8.0)
[2023-01-07] MEDS: 0.9 % Sodium Chloride 1,000 ML 999 ML IV (14:08)
[2023-01-07] MEDS: Morphine Sulfate 4 MG/ML CARTRIDGE IVPUSH ×2 (14:08→15:13)
[2023-01-07 14:20] LABS: Lipase 15 U/L (8-78)
[2023-01-07 14:30] LABS: Troponin-I High Sensitivity < 2.7 ng/L (<3.5-17.0)
[2023-01-07] MEDS: iohexoL 350 MG/ML 100 ML INFUS..BTL IV (15:01)
--- NOTE | 2023-01-07 15:10 | ED.ABDPAIN ---
HPI - Abdominal Pain General Chief Complaint: Abdominal Pain Stated Complaint: severe abd pain, upper r quad pain, per ems Time Seen by Provider: 01/07/23 13:44 Source: patient and RN notes reviewed Mode of arrival: ambulatory Limitations: no limitations History of Present Illness HPI narrative: This is a 57-year-old female, with a history of anxiety, bipolar disorder, depression, type 2 diabetes, who presents to the emergency department with complaints of severe abdominal pain which started this morning. Patient states that she tested positive for COVID on Tuesday. She has had some nausea, vomiting and abdominal pain which started this morning. She has been unable to tolerate p.o. given her symptoms. she endorses fevers and chills but is unsure if this is due to COVID. Reportinng she had diarrhea yesterday. She had a cholecystectomy, otherwise no other abdominal surgeries. No other complaints or concerns at this time. MD elicited complaint: abdominal pain Pertinent past history: none Onset (ago): hour(s) Pain Consistency: constant Location: epigastric Severity: moderate Quality: stabbing Radiation: none Migration to: no migration Exacerbating factors: nothing Relieving factors: nothing Associated symptoms: denies other symptoms Related Data Home Medications Medication Instructions Recorded Confirmed amlodipine 10 mg tablet 5 mg PO DAILY 04/16/21 04/16/21 gabapentin 300 mg capsule 300 mg PO TID 04/16/21 04/16/21 aripiprazole 5 mg tablet mg PO 12/11/21 ibuprofen 600 mg tablet mg PO 12/11/21 omeprazole 40 mg capsule,delayed mg PO 12/11/21 release trazodone 100 mg tablet mg PO 12/11/21 venlafaxine 150 mg mg PO 12/11/21 capsule,extended release 24 hr Previous Rx's Medication Instructions Recorded blood sugar diagnostic (FreeStyle #150 ea 04/16/21 Lite Strips) empagliflozin 10 mg tablet 10 mg PO QAM #30 tabs 04/16/21 (Jardiance) insulin aspart U-100 100 unit/mL 20 unit (0.2 mL) subcut TID 30 04/16/21 (3 mL) subcutaneous pen (Novolog days #30 mL FlexPen U-100 Insulin aspart) insulin degludec 200 unit/mL (3 90 unit (0.45 mL) subcut BEDTIME 04/16/21 mL) subcutaneous pen (Tresiba 30 days #18 mL FlexTouch U-200 insulin) naproxen 500 mg tablet 500 mg PO BID PRN pain #20 tabs 07/11/21 metformin 500 mg tablet,extended 500 mg PO BID #30 tabs 07/20/21 release 24 hr sumatriptan succinate 50 mg tablet See Rx Instructions PO .COMPLEX 12/14/21 #10 tabs gpkbmktujn-npforeuunbpof-ijiyakcl 1 cap PO Q6H PRN headache #20 caps 08/25/22 50 mg-300 mg-40 mg capsule (Fioricet) metoclopramide HCl 10 mg tablet 10 mg PO Q6H PRN nausea and 09/09/22 (Reglan) vomiting #14 tabs celecoxib 200 mg capsule 200 mg PO BID #60 caps 10/20/22 omeprazole 40 mg capsule,delayed 40 mg PO DAILY #14 caps 01/07/23 release ondansetron 4 mg disintegrating 4 mg PO Q6-8H PRN nausea and 01/07/23 tablet vomiting #14 tabs tramadol 50 mg tablet 50 mg PO Q6H PRN pain #10 tabs 01/07/23 diclofenac sodium 1 % topical gel 4 g topical QID #100 grams 01/09/23 Allergies Allergy/AdvReac Type Severity Reaction Status Date / Time penicillin V Allergy Unknown Hives Verified 08/25/22 19:14 Penicillins Allergy Unknown HIVES Verified 08/25/22 19:14 Review of Systems Review of Systems Yes all other systems are reviewed and are negative Constitutional: Reports as per [facility] Past Medical History Medical History Anxiety Bipolar 1 disorder Depressed Diabetes 1.5, managed as type 1 DM2 (diabetes mellitus, type 2) Surgical History History of dental surgery History of partial hysterectomy Social History Social History Household Members: Children Household Members Other:: daughter Alcohol intake: current Alcohol intake frequency: does not drink Alcohol type: wine Patient Tobacco Use Status: Current everyday Tobacco user Substance Use Type: Marijuana Advance Directives: No Advance Directives Information Provided: Yes Current occupational status: disabled Physical Exam ED Vital Signs: Vital Signs - 24 hr 01/07/23 12:17 01/07/23 15:19 Temperature 97.8 F Pulse Rate 83 78 Respiratory Rate 24 H 16 Blood Pressure 113/38 L 160/87 H Pulse Oximetry 99 97 Oxygen Delivery Method Room Air Room Air BMI result Body Mass Index 33.9 Const General: cooperative, comfortable and no acute distress Orientation/consciousness: patient oriented x3 Limitations: no limitations HENMT Head: Yes normal to inspection, Yes normocephalic and Yes atraumatic Ears: hearing grossly normal bilaterally General nose exam: Normal external nose present Face and sinus: Yes normal facial exam Mouth: Normal oral and palatal mucosa present, oropharynx normal and moist mucous membranes Throat: Yes posterior oropharynx normal Eyes General: appearance normal, both eyes and all related structures Eyelids: Yes eyelids normal Conjunctivae: conjunctivae normal Sclerae: sclerae normal Pupils: Equal, round and reactive pupils present EOM: EOMs intact bilaterally Neck Neck: Yes normal visual inspection, Yes full ROM and Yes no lymphadenopathy Lymphatic: no lymphadenopathy noted Chest Chest palpation & inspection: normal inspection of the chest Resp Effort & Inspection: normal respiratory effort and able to speak in complete sentences Auscultation: clear to auscultation bilaterally, no crackles, no rales, no rhonchi and no wheezes Cardio Rate: regular rate Rhythm: regular rhythm Heart sounds: S1 normal heart sound present and S2 normal heart sound present GI Other: abdomen is soft, with exquisite tenderness in the epigastric and right upper quadrant. Abdomen is diffusely tender throughout. Guarding noted, no rebound Inspection: Yes normal to inspection Skin General skin exam: no rashes or lesions noted Trauma: no lacerations or abrasions Wounds: no wounds Neuro General: patient oriented x3 and moves all extremities Cranial nerves: Yes Equal, round and reactive pupils present Extrem General: Yes normal to inspection Right upper extremity: normal to inspection Left upper extremity: normal to inspection Right lower extremity: normal to inspection Left lower extremity: normal to inspection Course Reevaluation(s) Reevaluation #1: CT abdomen showing fluid distention of the ascending transverse colon which could be seen in diarrhea, no significant pericolonic fat stranding or free fluid. No evidence of bowel obstruction. Hepatomegaly and fat containing umbilical hernia was seen. Patient re-evaluated, pain has improved. Given findings on CT scan, I believe that her symptoms may be attributed gastritis. I informed patient of this, she discloses that she just started on anti viral medication to treat for COVID states that she has been getting worsening stomach pain as well as metallic flavor and her mouth. Explained to her that this medication can cause these symptoms. will try GI cocktail to see if symptoms improve Time: 15:42 Reevaluation #2: patient still admitting to having some intermittent abdominal pain, however much improved since her arrival in the emergency department today. Will p.o. trial Time: 16:11 Reevaluation #3: Pt reporting worsening pain after PO trial. Given morphine and pantoprazole IV. sign out given to my colleague, Juan Manuel Woodard PA-C. Medical Decision Making Medical Decision Making MDM Narrative: This is a 49-year-old female presenting to the emergency department for evaluation abdominal pain which started this morning. She is COVID positive as of several days ago. She states that she has been unable to tolerate p.o. given her symptoms. Mildly hypotensive upon arrival, now 160/87 Pt crying, visibly uncomfortable secondary to pain. Patient medicated with morphine and IV fluids. CT abdomen with contrast was ordered differential diagnoses include acute gastritis, bowel obstruction, ACS. Differential Diagnosis Differential Diagnoses: The differential diagnosis associated with the presentation includes Admission/Observation Consideration of admission/observation: Escalation of care including admission/observation considered Lab Data [facility] Lab Attestation statement: I reviewed the patient's lab results. 01/07/23 13:20 01/07/23 13:20 Labs: Lab Results 01/07/23 01/07/23 01/07/23 Range/Units 13:16 13:20 14:03 WBC 8.6 (4.8-10.8) X10*3/uL RBC 4.53 (4.20-5.50) X10*6/uL Hgb 14.4 (12.0-16.0) g/dl Hct 43.0 (37.0-47.0) % MCV 94.9 (80.0-98.0) fL MCH 31.8 (27.0-33.0) pg MCHC 33.5 (31.0-35.0) g/dl RDW 12.4 (11.0-16.0) % Plt Count 186 (160-400) X10*3/uL MPV 11.2 (9.4-12.3) fL Immature Gran % (Auto) 0.6 H (0.0-0.4) % Neut % (Auto) 60.8 (45-73) % Lymph % (Auto) 28.5 (20-40) % Cook % (Auto) 6.0 (2-11) % Eos % (Auto) 3.8 (0-4) % Baso % (Auto) 0.3 (0-2) % Lymph # (Auto) 2.5 (1.2-4.9) X10*3/uL Cook # (Auto) 0.5 (0.1-1.2) X10*3/uL Eos # (Auto) 0.3 (0.0-0.4) X10*3/uL Baso # (Auto) 0.0 (0.0-0.2) X10*3/uL Abs Immat Gran (auto) 0.05 H (0.00-0.03) X10*3/uL Absolute Neuts (auto) 5.2 (2.0-8.3) x10*3/uL Absolute Nucleated RBC 0.000 (0.0-0.012) X10*3/uL Nucleated RBC % (auto) 0.0 (0.0-0.2) /100WBC Sodium 135 (135-145) mmol/L Potassium 4.8 (3.3-5.1) mmol/L Chloride 106 (96-108) mmol/L Carbon Dioxide 19 L (22-29) mmol/L Anion Gap 15 (12-20) BUN 23 H (9-16) mg/dL Creatinine 1.01 (0.5-1.4) mg/dL Estim Creat Clear Calc 65.7 Estimated GFR 56 Random Glucose 235 H (60-115) mg/dL Calcium 10.6 H D (8.4-10.2) mg/dL Total Bilirubin 0.3 (0.0-1.0) mg/dL AST 13 (5-31) U/L ALT 10 (0-31) U/L Alkaline Phosphatase 103 (39-117) U/L Troponin I High Sens < 2.7 (<3.5-17.0) ng/L Total Protein 7.5 (6.5-8.0) g/dL Albumin 3.7 (3.5-5.0) g/dL Lipase 15 (8-78) U/L Urine Color Yellow Urine Appearance Cloudy Urine pH 5.5 (5.0-9.0) Ur Specific [place] 1.020 (1.005-1.025) Urine Protein 100 (2+) H (Neg-Trace) mg/dL Urine Glucose (UA) 250 H (Negative) mg/dL Urine Ketones Negative (Negative) mg/dL Urine Blood Negative (Negative) Urine Nitrite Negative (Negative) Ur Leukocyte Esterase Negative (Negative) Urine RBC 0-2 (0-2) /HPF Urine WBC 0-5 (0-5) /HPF Ur Squamous Epith Cells >20 (0-2) /HPF Urine Bacteria 4+ (None Seen) Hyaline Casts 3-5 (0-2) /LPF Independent Interpretation I performed an independent interpretation of an: EKG Interpretation: EKG in normal sinus rhythm with short VT interval at 1:08 a.m., ventricular rate 73 beats per minute, no ST elevation or depression. Radiology Impression Discussion of test interpretation with radiology: I have reviewed the radiologist's reading. Radiologist Impression: EXAMINATION: CT ABDOMEN AND PELVIS WITH CONTRAST CLINICAL INFORMATION: Epigastric pain. COMPARISON: CT abdomen/pelvis 08/09/2021. TECHNIQUE: Multidetector volumetric images were obtained from the superior aspect of the liver through the pubic symphysis following administration 85 mL of Omnipaque 350 intravenous contrast. Sagittal and coronal reformatted images were obtained on the technologist's workstation. Oral contrast: No This CT examination was performed using dose optimization techniques as appropriate, variously including the following: *Automated exposure control *Adjustment of mA and/or kV according to patient size (this includes techniques or standardized protocols for targeted exams where dose is matched to indication/reason for exam; i.e. extremities or head) *Use of iterative reconstruction technique DLP: 658 mGy-cm FINDINGS: LUNG BASES: No focal consolidation or pleural effusion. LIVER, GALLBLADDER, AND BILIARY TREE: The liver is enlarged measuring 21 cm craniocaudally and demonstrates decreased attenuation most suggestive of hepatic steatosis. Otherwise, it is normal in shape. A too small to characterize hypodensity in the posterior inferior right hepatic lobe (3:35) is unchanged compared to 08/09/2021. Cholecystectomy. Stable mild nonspecific dilatation of the common bile duct, most likely associated with post cholecystectomy state. No intrahepatic biliary ductal dilatation. PANCREAS: No main ductal dilatation. No significant peripancreatic free fluid or fat stranding. SPLEEN: Unremarkable. ADRENAL GLANDS: A 0.5 cm macroscopic fat-containing right adrenal myelolipoma is unchanged, for which no imaging follow-up is recommended. Normal left adrenal gland KIDNEYS AND URETERS: The kidneys are normal in size, shape, and attenuation. Redemonstration of a simple Bosniak 1 cyst in the lower pole the right kidney, for which no imaging follow-up is recommended. A few additional too small to characterize cortical hypodensities, for instance as visualized in the lower pole of the left kidney (sagittal image 42, series 7), statistically favoring to represent simple cysts for which no imaging follow-up is recommended. No hydronephrosis, hydroureter, or calculi seen. No perinephric stranding. BLADDER: Unremarkable. GASTROINTESTINAL TRACT: The stomach and the small bowel are nondilated. Normal appendix. Fluid distention of the ascending and transverse colon which could be seen with diarrhea. No significant pericolonic fat stranding or free fluid. No evidence of bowel obstruction. ABDOMINAL WALL: Unchanged small fat-containing umbilical hernia. LYMPH NODES: Stable prominent periportal lymph nodes measuring up to 9 mm in short axis. VASCULAR: Scattered moderate atherosclerotic disease. Normal caliber of the abdominal aorta. PELVIC VISCERA: Hysterectomy. No pelvic mass. OSSEOUS STRUCTURES: Degenerative changes of the spine. Chronic fracture of the left transverse process at the level of L2 and L3. No acute or aggressive appearing osseous findings. CT/CT abdomen pelvis w IV con IMPRESSION: 1. Fluid distention of the ascending and transverse colon which could be seen with diarrhea in the appropriate clinical context. No significant pericolonic fat stranding or free fluid. No evidence of bowel obstruction. 2. Hepatomegaly and hepatic steatosis. 3. Small fat-containing umbilical hernia. Dictated By: Eloisa Guaman Medications Administered Discontinued Medications Generic Name Dose Route Start Last Admin Trade Name Freq PRN Reason Stop Dose Admin Al Hydroxide/Mg Hydroxide 30 ml 01/07/23 15:37 01/07/23 15:47 Magnesium Hydrox/Alum Hydrox 30 Ml Oral.Susp PO 01/07/23 15:38 30 ml ONCE ONE Administration Sodium Chloride 1,000 mls @ 999 mls/hr 01/07/23 13:48 01/07/23 15:34 Ns IV 01/07/23 14:48 Infused .Q1H1M ONE Infusion Iohexol 100 ml 01/07/23 15:01 01/07/23 15:01 Iohexol 350 Mg/Ml 100 Ml Infus..Btl IV 01/07/23 15:02 85 ml ONCE ONE Administration Lidocaine HCl 15 ml 01/07/23 15:37 01/07/23 15:47 Lidocaine Hcl Viscous 2 % 15 Ml Solution MUCOUS MEM 01/07/23 15:38 15 ml ONCE ONE Administration Morphine Sulfate 4 mg 01/07/23 13:47 01/07/23 14:08 Morphine Sulfate 4 Mg/Ml Cartridge IVPUSH 01/07/23 13:48 4 mg ONCE ONE Administration Protocol Morphine Sulfate 4 mg 01/07/23 14:38 01/07/23 15:13 Morphine Sulfate 4 Mg/Ml Cartridge IVPUSH 01/07/23 14:39 4 mg ONCE ONE Administration Protocol Morphine Sulfate 2 mg 01/07/23 16:53 01/07/23 17:35 Morphine Sulfate 2 Mg/Ml Cartridge IVPUSH 01/07/23 16:54 2 mg ONCE ONE Administration Protocol Ondansetron HCl 4 mg 01/07/23 15:09 01/07/23 15:14 Ondansetron Hcl 4 Mg/2 Ml Vial IVPUSH 01/07/23 15:10 4 mg ONCE ONE Administration Pantoprazole Sodium 40 mg 01/07/23 16:53 01/07/23 17:34 Pantoprazole Sodium 40 Mg/10 Ml Vial IVPUSH 01/07/23 16:54 40 mg ONCE ONE Administration Discharge Plan Discharge Clinical Impression: Abdominal pain, COVID-19 Patient Disposition: Home, Self-Care Instructions: Abdominal Pain (ED) Additional Instructions: Your symptoms are consistent with gastritis pain. Please take prescribed medications. Please discontinue anti-viral medication you were given to treat for covid. Please take prescribed nausea medication as directed. Drink plenty of fluids and get plenty of rest. Avoid fried, spicy foods. Stick to a bland diet consisting of rice, toast, bananas, yogurt. Your labs were normal today. Your CT scan showed evidence of diarrhea. If any new or worsening symptoms occur, please return for re-evaluation. Prescriptions: New omeprazole 40 mg capsule,delayed release(DR/EC) 40 mg PO DAILY Qty: 14 0RF ondansetron 4 mg tablet,disintegrating 4 mg PO Q6-8H PRN (Reason: nausea and vomiting) Qty: 14 0RF tramadol 50 mg tablet 50 mg PO Q6H PRN (Reason: pain) Qty: 10 0RF No Action metformin 500 mg tablet extended release 24 hr 500 mg PO BID Qty: 30 0RF celecoxib 200 mg capsule 200 mg PO BID Qty: 60 3RF diclofenac sodium 1 % gel 4 g topical QID Qty: 100 0RF sumatriptan succinate 50 mg tablet See Rx Instructions .ROUTE .COMPLEX Qty: 10 0RF Rx Instructions: take 1 tab at onset of headache; if no relief may repeat 1 tab after at least 2 hrs; max = 4 tabs/24 hr naproxen 500 mg tablet 500 mg PO BID PRN (Reason: pain) Qty: 20 0RF metoclopramide HCl [Reglan] 10 mg tablet 10 mg PO Q6H PRN (Reason: nausea and vomiting) Qty: 14 0RF [id number]-cspccjgwdddvk-bbfb [Fioricet] 50-300-40 mg capsule 1 cap PO Q6H PRN (Reason: headache) Qty: 20 0RF aripiprazole 5 mg tablet PO trazodone 100 mg tablet PO omeprazole 40 mg capsule,delayed release(DR/EC) PO venlafaxine 150 mg capsule,extended release 24hr PO ibuprofen 600 mg tablet PO amlodipine 10 mg tablet 5 mg PO DAILY gabapentin 300 mg capsule 300 mg PO TID Jardiance 10 mg tablet 10 mg PO QAM Qty: 30 6RF Tresiba FlexTouch U-200 200 unit/mL (3 mL) insulin pen 90 unit subcut BEDTIME 30 Days Qty: 18 6RF insulin aspart U-100 [Novolog FlexPen U-100 Insulin] 100 unit/mL (3 mL) insulin pen 20 unit subcut TID 30 Days Qty: 30 6RF (DME) FreeStyle Lite Strips Strip See Rx Instructions .ROUTE .MEDSUPPLY Qty: 150 11RF Rx Instructions: As directed four times a day Interventions: ED Discharge Assessment Last Done: 01/07/23 20:22 Discharge Date/Time: 01/07/23 20:22
[2023-01-07] MEDS: ondansetron HCL 4 MG/2 ML VIAL IVPUSH (15:14)
[2023-01-07 15:19] VITALS: BP 160/87; PULSE 78; RESP 16; O2SAT 97
[2023-01-07] MEDS: Magnesium Hydrox/Alum Hydrox 30 ML ORAL.SUSP PO (15:47)
[2023-01-07] MEDS: Lidocaine HCl Viscous 2 % 15 ML SOLUTION MUCOUS MEM (15:47)
[2023-01-07] MEDS: Pantoprazole Sodium 40 MG/10 ML VIAL IVPUSH (17:34)
[2023-01-07] MEDS: Morphine Sulfate 2 MG/ML CARTRIDGE IVPUSH (17:35)
== END 2023-01-07 20:22 | disposition home or self-care (01) ==
PROVIDERS: Physician Assistant Medical; Emergency Provider Emergency Medicine Emergency Medical Services; PCP Internal Medicine
DX: R10.11 Right upper quadrant pain (principal); U07.1 COVID-19; R07.89 Other chest pain; Z79.899 Other long term (current) drug therapy; F17.200 Nicotine dependence, unspecified, uncomplicated; Z71.6 Tobacco abuse counseling
CPT/HCPCS: 36415; 74177; 80053; 81001; 83690; 84484; 85025; 93005; 96361; 96374; 96375; 96376; 99284; J2270; J2405; Q9967

== ENCOUNTER 2023-03-16 02:44 | Emergency (ER) | payer MEDICARE, MEDICAID, SELFPAY ==
[2023-03-16 02:45] VITALS: BP 131/94; PULSE 101; RESP 18; TEMP 36.9; O2SAT 97; BMI 33.3
--- NOTE | 2023-03-16 03:29 | ED.GENADULT ---
HPI - General Adult General Chief complaint: Extremity Problem Stated complaint: tingling sensation in feet Time Seen by Provider: 03/16/23 03:21 Source: patient Mode of arrival: ambulatory Limitations: no limitations History of Present Illness HPI narrative: Patient with peripheral neuropathy secondary to diabetes recently increased the dose of gabapentin to 300 mg 3 times a day comes here for increased burning sensation no open Related Data Home Medications Medication Instructions Recorded Confirmed amlodipine 10 mg tablet 5 mg PO DAILY 04/16/21 04/16/21 gabapentin 300 mg capsule 300 mg PO TID 04/16/21 04/16/21 aripiprazole 5 mg tablet mg PO 12/11/21 ibuprofen 600 mg tablet mg PO 12/11/21 omeprazole 40 mg capsule,delayed mg PO 12/11/21 release trazodone 100 mg tablet mg PO 12/11/21 venlafaxine 150 mg mg PO 12/11/21 capsule,extended release 24 hr Previous Rx's Medication Instructions Recorded blood sugar diagnostic (FreeStyle #150 ea 04/16/21 Lite Strips) empagliflozin 10 mg tablet 10 mg PO QAM #30 tabs 04/16/21 (Jardiance) insulin aspart U-100 100 unit/mL 20 unit (0.2 mL) subcut TID 30 04/16/21 (3 mL) subcutaneous pen (Novolog days #30 mL FlexPen U-100 Insulin aspart) insulin degludec 200 unit/mL (3 90 unit (0.45 mL) subcut BEDTIME 04/16/21 mL) subcutaneous pen (Tresiba 30 days #18 mL FlexTouch U-200 insulin) naproxen 500 mg tablet 500 mg PO BID PRN pain #20 tabs 07/11/21 metformin 500 mg tablet,extended 500 mg PO BID #30 tabs 07/20/21 release 24 hr sumatriptan succinate 50 mg tablet See Rx Instructions PO .COMPLEX 12/14/21 #10 tabs rrijkoqfda-eamqigkqsyadi-jivlmgan 1 cap PO Q6H PRN headache #20 caps 08/25/22 50 mg-300 mg-40 mg capsule (Fioricet) metoclopramide HCl 10 mg tablet 10 mg PO Q6H PRN nausea and 09/09/22 (Reglan) vomiting #14 tabs omeprazole 40 mg capsule,delayed 40 mg PO DAILY #14 caps 09/22/23 release ondansetron 4 mg disintegrating 4 mg PO Q6-8H PRN nausea and 01/07/23 tablet vomiting #14 tabs tramadol 50 mg tablet 50 mg PO Q6H PRN pain #10 tabs 01/07/23 diclofenac sodium 1 % topical gel 4 g topical QID #100 grams 03/06/23 celecoxib 200 mg capsule 200 mg PO BID #60 caps 03/14/23 tramadol 50 mg tablet 50 mg PO Q6H PRN pain #20 tabs 03/16/23 Allergies Allergy/AdvReac Type Severity Reaction Status Date / Time penicillin V Allergy Unknown Hives Verified 08/25/22 19:14 Penicillins Allergy Unknown HIVES Verified 08/25/22 19:14 Review of Systems Review of Systems: Yes all other systems are reviewed and are negative [facility] Past Medical History Medical History DM2 (diabetes mellitus, type 2) Depressed Anxiety Bipolar 1 disorder Diabetes 1.5, managed as type 1 Surgical History History of partial hysterectomy History of dental surgery Social History Social History Household Members: Children Household Members Other:: daughter Alcohol intake: current Alcohol intake frequency: does not drink Alcohol type: wine Patient Tobacco Use Status: Current everyday Tobacco user Smoked in Last 30 Days: Yes Use of substances other than those prescribed or required for medical reasons: Yes Substance Use Type: Marijuana Substance Use Frequency: Chronic Longstanding Advance Directives: No Advance Directives Information Provided: No Patient : No Current occupational status: disabled Physical Exam ED Vital Signs: Vital Signs - 24 hr 03/16/23 02:45 03/16/23 03:40 Temperature 98.4 F 98.0 F Pulse Rate 101 H 98 Respiratory Rate 18 16 Blood Pressure 131/94 H 110/73 Pulse Oximetry 97 95 Oxygen Delivery Method Room Air Room Air BMI result Body Mass Index 33.3 Appearance: Alert. Oriented X3. Anxious Eyes: PERRLA, No Nystagmus ENT: Pharynx normal. Oral Mucosa moist Neck: Normal inspection. Neck supple. CVS: Normal heart rate and rhythm. Pulses normal. Respiratory: No respiratory distress. Equal air entry bilateral, no wheezing/rales/rhonchi Abdomen: Soft and nontender. Bowel sounds are present, no mass palpable, no CVA tenderness Skin: Skin warm and dry. Normal skin color. Normal skin turgor. Extremities: No lower extremity edema. No calf tenderness Neuro: Oriented X 3. No motor deficit. Hypersensitive to touch lower extremities bilateral No cerebellar signs , cranial nerves II-XII intact Medications Administered Discontinued Medications Generic Name Dose Route Start Last Admin Trade Name Freq PRN Reason Stop Dose Admin Morphine Sulfate 15 mg 03/16/23 03:40 03/16/23 03:51 Morphine Sulfate Immed Release 15 Mg Tablet PO 03/16/23 03:41 15 mg ONCE ONE Administration Medical Decision Making Medical Decision Making [facility] Narrative: Patient with painful peripheral neuropathy secondary to diabetes will advised to continue her gabapentin at tramadol for pain Lab Data [facility] Lab Attestation statement: I reviewed the patient's lab results. Labs: Lab Results 03/16/23 Range/Units 03:39 POC Glucose 131 H (60-115) mg/dL Discharge Plan Discharge Clinical Impression: Chronic peripheral neuropathic pain Patient Disposition: Home, Self-Care Instructions: Diabetic Peripheral Neuropathy (ED) Additional Instructions: Continue gabapentin as prescribed Tramadol for increased pain Follow up with PCP Prescriptions: New tramadol 50 mg tablet 50 mg PO Q6H PRN (Reason: pain) Qty: 20 0RF No Action metformin 500 mg tablet extended release 24 hr 500 mg PO BID Qty: 30 0RF diclofenac sodium 1 % gel 4 g topical QID Qty: 100 0RF celecoxib 200 mg capsule 200 mg PO BID Qty: 60 3RF sumatriptan succinate 50 mg tablet See Rx Instructions .ROUTE .COMPLEX Qty: 10 0RF Rx Instructions: take 1 tab at onset of headache; if no relief may repeat 1 tab after at least 2 hrs; max = 4 tabs/24 hr naproxen 500 mg tablet 500 mg PO BID PRN (Reason: pain) Qty: 20 0RF metoclopramide HCl [Reglan] 10 mg tablet 10 mg PO Q6H PRN (Reason: nausea and vomiting) Qty: 14 0RF omeprazole 40 mg capsule,delayed release(DR/EC) 40 mg PO DAILY Qty: 14 0RF ondansetron 4 mg tablet,disintegrating 4 mg PO Q6-8H PRN (Reason: nausea and vomiting) Qty: 14 0RF tramadol 50 mg tablet 50 mg PO Q6H PRN (Reason: pain) Qty: 10 0RF jnyfvoqrwo-umdfuueuxvyoa-whjd [Fioricet] 50-300-40 mg capsule 1 cap PO Q6H PRN (Reason: headache) Qty: 20 0RF aripiprazole 5 mg tablet PO trazodone 100 mg tablet PO omeprazole 40 mg capsule,delayed release(DR/EC) PO venlafaxine 150 mg capsule,extended release 24hr PO ibuprofen 600 mg tablet PO amlodipine 10 mg tablet 5 mg PO DAILY gabapentin 300 mg capsule 300 mg PO TID Jardiance 10 mg tablet 10 mg PO QAM Qty: 30 6RF Tresiba FlexTouch U-200 200 unit/mL (3 mL) insulin pen 90 unit subcut BEDTIME 30 Days Qty: 18 6RF insulin aspart U-100 [Novolog FlexPen U-100 Insulin] 100 unit/mL (3 mL) insulin pen 20 unit subcut TID 30 Days Qty: 30 6RF (DME) FreeStyle Lite Strips Strip See Rx Instructions .ROUTE .MEDSUPPLY Qty: 150 11RF Rx Instructions: As directed four times a day Interventions: ED Discharge Assessment Last Done: 03/16/23 04:26 Discharge Date/Time: 03/16/23 04:27
[2023-03-16 03:40] VITALS: BP 110/73; PULSE 98; RESP 16; TEMP 36.7; O2SAT 95
[2023-03-16 03:47] LABS: Glucose, Whole Blood 131 mg/dL (60-115)
[2023-03-16] MEDS: Morphine Sulfate Immed Release 15 MG TABLET PO (03:51)
== END 2023-03-16 04:27 | disposition home or self-care (01) ==
PROVIDERS: Emergency Provider Internal Medicine; PCP Internal Medicine
DX: G62.9 Polyneuropathy, unspecified (principal); Z79.899 Other long term (current) drug therapy
CPT/HCPCS: 82947; 99283; 99284

== ENCOUNTER 2023-03-21 09:35 | Emergency (ER) | payer MEDICARE, MEDICAID, SELFPAY ==
[2023-03-21 09:59] VITALS: BP 116/68; PULSE 84; RESP 18; TEMP 36.6; O2SAT 98; BMI 34.3
[2023-03-21 10:26] LABS: MANUAL DIFF FLAG NO
[2023-03-21 10:29] LABS: Basophils Percent Auto 0.5 % (0-2); Eosinophils Absolute Auto 0.4 X10*3/uL (0.0-0.4); Eosinophils Percent Auto 5.4 % (0-4); Hematocrit 43.6 % (37.0-47.0); Hemoglobin 14.1 g/dl (12.0-16.0); Imm Gran Abs Auto 0.02 X10*3/uL (0.00-0.03); Imm Gran Pct Auto 0.3 % (0.0-0.4); Lymphocytes Absolute Auto 2.2 X10*3/uL (1.2-4.9); Lymphocytes Percent Auto 28.2 % (20-40); Mean Corpuscular HGB Conc 32.3 g/dl (31.0-35.0); Mean Corpuscular Hemoglobin 31.2 pg (27.0-33.0); Mean Corpuscular Volume 96.5 fL (80.0-98.0); Mean Platelet Volume 11.7 fL (9.4-12.3); Monocytes Absolute Auto 0.5 X10*3/uL (0.1-1.2); Monocytes Percent Auto 6.8 % (2-11); Neutrophils Absolute Auto 4.6 x10*3/uL (2.0-8.3); Neutrophils Percent Auto 58.8 % (45-73); Platelet Count 204 X10*3/uL (160-400); Red Blood Count 4.52 X10*6/uL (4.20-5.50); Red Cell Distribution Width 13.2 % (11.0-16.0); White Blood Count 7.8 X10*3/uL (4.8-10.8)
[2023-03-21 10:51] LABS: Anion Gap 13 (12-20); Blood Urea Nitrogen 20 mg/dL (9-16); Calcium 10.5 mg/dL (8.4-10.2); Carbon Dioxide 21 mmol/L (22-29); Chloride 111 mmol/L (96-108); Creatinine Clr Calc Pharmacy 76.8; Estimated Glomerular Filt Rate > 60; Glucose Random 256 mg/dL (60-115); Potassium 4.8 mmol/L (3.3-5.1); Sodium 140 mmol/L (135-145)
[2023-03-21 15:12] LABS: Appearance Urine Clear; Color Urine Yellow; Glucose Urine UA 250 mg/dL (Negative); Leukocyte Esterase Urine Negative (Negative); Nitrite Urine Negative (Negative); PH 5.5 (5.0-9.0); Specific Gravity - Urine 1.025 (1.005-1.025); UMIC TRIGGER UACC YES; Urine Blood Negative (Negative); Urine Ketones Negative (Negative); Urine Protein 30 (1+) mg/dL (Neg-Trace)
[2023-03-21 15:19] LABS: Bacteria Urine 2+ (None Seen); Hyaline Casts Urine 0-2 /LPF (0-2); RBC Urine 0-2 /HPF (0-2); WBC Urine 0-5 /HPF (0-5)
--- NOTE | 2023-03-21 15:36 | ED.GENADULT ---
HPI - General Adult General Chief complaint: Abdominal Pain Stated complaint: kidney pain Time Seen by Provider: 03/21/23 15:38 Source: patient Mode of arrival: ambulatory Limitations: no limitations History of Present Illness HPI narrative: Patient is a 57 year old assigned female at with a history of DM, bipolar disorder, and anxiety presenting to the emergency department today with left sided flank and back pain. Patient states that over the last day she has had left sided flank and back pain with nausea. Patient denies any dizziness, lightheadedness, abdominal pain, nausea, vomiting, fever, chills, blurry vision, double vision, loss of vision, chest pain, difficulty breathing, shortness of breath, night sweats, pain with urination, increased urinary frequency, increased urinary urgency, blood in her urine or stool, syncope or a near syncopal episode, recent trauma or falls, bowel incontinence, bladder incontinence, bowel retention, bladder retention, or any other complaints at this time. Onset (ago): day(s) (1) Location: back and left (flank) Severity: mild Severity scale (1-10): 4 Quality: aching and dull Pain Consistency: constant Relieving factors: none Exacerbating factors: none Associated symptoms: denies other symptoms Treatments prior to arrival: none Related Data Home Medications Medication Instructions Recorded Confirmed amlodipine 10 mg tablet 5 mg PO DAILY 04/16/21 04/16/21 gabapentin 300 mg capsule 300 mg PO TID 04/16/21 04/16/21 aripiprazole 5 mg tablet mg PO 12/11/21 ibuprofen 600 mg tablet mg PO 12/11/21 omeprazole 40 mg capsule,delayed mg PO 12/11/21 release trazodone 100 mg tablet mg PO 12/11/21 venlafaxine 150 mg mg PO 12/11/21 capsule,extended release 24 hr Previous Rx's Medication Instructions Recorded blood sugar diagnostic (FreeStyle #150 ea 04/16/21 Lite Strips) empagliflozin 10 mg tablet 10 mg PO QAM #30 tabs 04/16/21 (Jardiance) insulin aspart U-100 100 unit/mL 20 unit (0.2 mL) subcut TID 30 04/16/21 (3 mL) subcutaneous pen (Novolog days #30 mL FlexPen U-100 Insulin aspart) insulin degludec 200 unit/mL (3 90 unit (0.45 mL) subcut BEDTIME 04/16/21 mL) subcutaneous pen (Tresiba 30 days #18 mL FlexTouch U-200 insulin) naproxen 500 mg tablet 500 mg PO BID PRN pain #20 tabs 07/11/21 metformin 500 mg tablet,extended 500 mg PO BID #30 tabs 07/20/21 release 24 hr sumatriptan succinate 50 mg tablet See Rx Instructions PO .COMPLEX 12/14/21 #10 tabs xvozdncotj-kjlvdstiaqgcj-liwnyole 1 cap PO Q6H PRN headache #20 caps 08/25/22 50 mg-300 mg-40 mg capsule (Fioricet) metoclopramide HCl 10 mg tablet 10 mg PO Q6H PRN nausea and 09/09/22 (Reglan) vomiting #14 tabs omeprazole 40 mg capsule,delayed 40 mg PO DAILY #14 caps 01/07/23 release ondansetron 4 mg disintegrating 4 mg PO Q6-8H PRN nausea and 01/07/23 tablet vomiting #14 tabs tramadol 50 mg tablet 50 mg PO Q6H PRN pain #10 tabs 01/07/23 diclofenac sodium 1 % topical gel 4 g topical QID #100 grams 03/06/23 celecoxib 200 mg capsule 200 mg PO BID #60 caps 03/14/23 tramadol 50 mg tablet 50 mg PO Q6H PRN pain #20 tabs 03/16/23 cyclobenzaprine 5 mg tablet 5 mg PO TID PRN muscle spasm 7 03/21/23 days #21 tabs naproxen 500 mg tablet 500 mg PO BID 7 days #14 tabs 03/21/23 Allergies Allergy/AdvReac Type Severity Reaction Status Date / Time penicillin V Allergy Unknown Hives Verified 08/25/22 19:14 Penicillins Allergy Unknown HIVES Verified 08/25/22 19:14 Review of Systems Constitutional: Constitutional: Reports no additional constitutional complaints, Denies chills, Denies fever(s) and Denies night sweats Eyes: Eyes: Reports no additional eye complaints, Denies blurry vision, Denies change in vision, Denies diplopia, Denies eye discharge, Denies loss of vision and Denies eye pain ENT: Denies dizziness Cardiovascular: Cardiovascular: Reports no additional cardiovascular complaints, Denies chest pain, Denies lightheadedness, Denies Loss of Consciousness and Denies dyspnea Respiratory: Respiratory: Reports no additional respiratory complaints and Denies dyspnea Gastrointestinal: Gastrointestinal: Reports no additional gastrointestinal complaints, Denies abdominal pain, Denies melena, Denies hematochezia, Denies change in bowel habits and Denies change in stool character Genitourinary: Genitourinary: Denies hematuria, Denies urinary frequency, Denies dysuria, Reports flank pain, Denies urinary incontinence, Denies urinary hesitancy and Denies urinary urgency Musculoskeletal: Musculoskeletal: Reports no additional musculoskeletal complaints, Reports back pain, Denies numbness and Denies tingling Neurologic: Denies dizziness, Denies loss of vision, Denies numbness and Denies tingling Psychiatric: Psychiatric: Reports no additional psychiatric complaints Endocrine: Endocrine: Reports no additional endocrine complaints Hematologic/Lymphatic: Hematologic/Lymphatic: Reports no additional hematologic/lymphatic complaints Allergic/Immunologic: Allergic/Immunologic: Reports no additional allergic/immunologic complaints PMFSH Past Medical History Attestation statement: The following information was validated with the patient. 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 DM2 (diabetes mellitus, type 2) Depressed Anxiety Bipolar 1 disorder Diabetes 1.5, managed as type 1 Surgical History History of partial hysterectomy History of dental surgery Social History Social History Household Members: Children Household Members Other:: daughter Alcohol intake: current Alcohol intake frequency: does not drink Alcohol type: wine Patient Tobacco Use Status: Current everyday Tobacco user Substance Use Type: Marijuana Advance Directives: No Advance Directives Information Provided: No Current occupational status: disabled Physical Exam ED Vital Signs: Vital Signs - 24 hr 03/21/23 09:59 Temperature 98 F Pulse Rate 84 Respiratory Rate 18 Blood Pressure 116/68 Pulse Oximetry 98 Oxygen Delivery Method Room Air BMI result Body Mass Index 34.3 Const General: cooperative, no acute distress, alert and awake Nutritional Appearance: well nourished Orientation/consciousness: patient oriented x3 Limitations: no limitations HENMT Head: Yes normal to inspection and Yes atraumatic Ears: hearing grossly normal bilaterally and external ears normal General nose exam: Normal external nose present, no nasal discharge noted and no epistaxis Face and sinus: Yes normal facial exam, No abrasion and No laceration Mouth: Normal oral and palatal mucosa present, no drooling and no muffled voice Eyes General: appearance normal, both eyes and all related structures Periorbital: periorbital findings normal Eyelids: Yes eyelids normal Conjunctivae: conjunctivae normal Pupils: Equal, round and reactive pupils present EOM: EOMs intact bilaterally Neck Neck: Yes normal visual inspection, Yes full ROM and Yes no lymphadenopathy Chest Chest palpation & inspection: normal inspection of the chest Resp Effort & Inspection: normal respiratory effort and able to speak in complete sentences GI Inspection: Yes normal to inspection General: Yes no CVA tenderness Back/Spine/Pelvis Back: no CVA tenderness Cervical Spine: normal cervical lordosis and cervical ROM normal Thoracic/Lumbar Spine: thoracic and lumbar spine normal to inspection and thoraco-lumbar ROM normal Pelvis: no pain with anterior-posterior compression Neuro General: patient oriented x3 and moves all extremities Cranial nerves: Yes Equal, round and reactive pupils present Cognition (Neuro): normal cognition Motor exam (neuro): 5/5 motor strength present throughout Sensory Exam: Normal double simultaneous stimulation for sensation Coordination: ecigtt-wl-wvmr test normal Extrem General: Yes normal to inspection, Yes full ROM and Yes capillary refill normal Psych Appearance: grossly normal Mental Status: mental status grossly normal Affect: normal affect Attitude: cooperative Thought process: Normal thought process present Thought content: Normal thought content present Insight: Good insight present (Psych) Medications Administered Discontinued Medications Generic Name Dose Route Start Last Admin Trade Name Rajinder PRN Reason Stop Dose Admin Cyclobenzaprine HCl 5 mg 03/21/23 15:39 03/21/23 15:43 Cyclobenzaprine Hcl 5 Mg Tablet PO 03/21/23 15:40 5 mg ONCE ONE Administration Ketorolac Tromethamine 15 mg 03/21/23 15:39 03/21/23 15:43 Ketorolac Tromethamine 15 Mg/Ml Vial IM 03/21/23 15:40 15 mg ONCE ONE Administration Medical Decision Making Medical Decision Making [facility] Narrative: Patient is a 57 year old assigned female at with a history of left flank pain and left sided back pain presenting to the emergency department today with left flank and back pain. Patient's physical exam was unremarkable. Patient's blood work was unremarkable. Patient's urine showed 2+ bacteria however, it was contaminated. Patient has no urinary symptoms at this time. Will await culture before initiating treatment. I explained my physical exam findings as well as all test results to the patient. I answered all questions asked by the patient. Patient received IM Toradol and PO Flexeril which she stated helped her symptoms significantly. I stressed the importance of the patient taking her medication as prescribed. I stressed the importance of the patient following up with her primary care provider. I stressed the importance of the patient returning to the emergency department immediately if her symptoms were to worsen or if she were to develop any dizziness, shortness of breath, difficulty breathing, chest pain, blurry vision, loss of vision, nausea, vomiting, abdominal pain, fever, chills, back pain, or any other complaints. Patient verbalized agreement and understanding with this treatment plan and discharge. Differential Diagnosis Differential Diagnoses: The differential diagnosis associated with the presentation includes Flank pain Back pain Admission/Observation Consideration of admission/observation: Escalation of care including admission/observation considered Patient would have been admitted to the hospital had her work up had any findings where hospital admission was appropriate and her clinical presentation warranted hospital admission. Lab Data MDM Lab Attestation statement: I reviewed the patient's lab results. My interpretation of these studies and their corresponding values is that they are grossly normal. 03/21/23 10:09 03/21/23 10:09 Labs: Lab Results 03/21/23 03/21/23 Range/Units 10:09 14:54 WBC 7.8 (4.8-10.8) X10*3/uL RBC 4.52 (4.20-5.50) X10*6/uL Hgb 14.1 (12.0-16.0) g/dl Hct 43.6 (37.0-47.0) % MCV 96.5 (80.0-98.0) fL MCH 31.2 (27.0-33.0) pg MCHC 32.3 (31.0-35.0) g/dl RDW 13.2 (11.0-16.0) % Plt Count 204 (160-400) X10*3/uL MPV 11.7 (9.4-12.3) fL Immature Gran % (Auto) 0.3 (0.0-0.4) % Neut % (Auto) 58.8 (45-73) % Lymph % (Auto) 28.2 (20-40) % [place] % (Auto) 6.8 (2-11) % Eos % (Auto) 5.4 H (0-4) % Baso % (Auto) 0.5 (0-2) % Lymph # (Auto) 2.2 (1.2-4.9) X10*3/uL [place] # (Auto) 0.5 (0.1-1.2) X10*3/uL Eos # (Auto) 0.4 (0.0-0.4) X10*3/uL Baso # (Auto) 0.0 (0.0-0.2) X10*3/uL Abs Immat Gran (auto) 0.02 (0.00-0.03) X10*3/uL Absolute Neuts (auto) 4.6 (2.0-8.3) x10*3/uL Absolute Nucleated RBC 0.000 (0.0-0.012) X10*3/uL Nucleated RBC % (auto) 0.0 (0.0-0.2) /100WBC Sodium 140 (135-145) mmol/L Potassium 4.8 (3.3-5.1) mmol/L Chloride 111 H (96-108) mmol/L Carbon Dioxide 21 L (22-29) mmol/L Anion Gap 13 (12-20) BUN 20 H (9-16) mg/dL Creatinine 0.87 (0.5-1.4) mg/dL Estim Creat Clear Calc 76.8 Estimated GFR > 60 Random Glucose 256 H (60-115) mg/dL Calcium 10.5 H (8.4-10.2) mg/dL Urine Color Yellow Urine Appearance Clear Urine pH 5.5 (5.0-9.0) Ur Specific [place] 1.025 (1.005-1.025) Urine Protein 30 (1+) H (Neg-Trace) mg/dL Urine Glucose (UA) 250 H (Negative) mg/dL Urine Ketones Negative (Negative) mg/dL Urine Blood Negative (Negative) Urine Nitrite Negative (Negative) Ur Leukocyte Esterase Negative (Negative) Urine RBC 0-2 (0-2) /HPF Urine WBC 0-5 (0-5) /HPF Ur Squamous Epith Cells 11-20 (0-2) /HPF Urine Bacteria 2+ (None Seen) Hyaline Casts 0-2 (0-2) /LPF Chronic Conditions Patient?s care impacted by: Diabetes Discharge Plan Discharge Clinical Impression: Acute flank pain Patient Disposition: Home, Self-Care Instructions: Flank Pain (ED) Additional Instructions: Follow up with your primary care provider. Return to the emergency department immediately if your symptoms worsen or if you develop any dizziness, shortness of breath, difficulty breathing, chest pain, blurry vision, loss of vision, nausea, vomiting, abdominal pain, fever, chills, back pain, or any other complaints. Prescriptions: New cyclobenzaprine 5 mg tablet 5 mg PO TID PRN (Reason: muscle spasm) 7 Days Qty: 21 0RF naproxen 500 mg tablet 500 mg PO BID 7 Days Qty: 14 0RF No Action metformin 500 mg tablet extended release 24 hr 500 mg PO BID Qty: 30 0RF diclofenac sodium 1 % gel 4 g topical QID Qty: 100 0RF celecoxib 200 mg capsule 200 mg PO BID Qty: 60 3RF sumatriptan succinate 50 mg tablet See Rx Instructions .ROUTE .COMPLEX Qty: 10 0RF Rx Instructions: take 1 tab at onset of headache; if no relief may repeat 1 tab after at least 2 hrs; max = 4 tabs/24 hr naproxen 500 mg tablet 500 mg PO BID PRN (Reason: pain) Qty: 20 0RF metoclopramide HCl [Reglan] 10 mg tablet 10 mg PO Q6H PRN (Reason: nausea and vomiting) Qty: 14 0RF omeprazole 40 mg capsule,delayed release(DR/EC) 40 mg PO DAILY Qty: 14 0RF ondansetron 4 mg tablet,disintegrating 4 mg PO Q6-8H PRN (Reason: nausea and vomiting) Qty: 14 0RF tramadol 50 mg tablet 50 mg PO Q6H PRN (Reason: pain) Qty: 10 0RF kwmnyxtpdt-gfxbcmnwhfaly-rcwa [Fioricet] 50-300-40 mg capsule 1 cap PO Q6H PRN (Reason: headache) Qty: 20 0RF tramadol 50 mg tablet 50 mg PO Q6H PRN (Reason: pain) Qty: 20 0RF aripiprazole 5 mg tablet PO trazodone 100 mg tablet PO omeprazole 40 mg capsule,delayed release(DR/EC) PO venlafaxine 150 mg capsule,extended release 24hr PO ibuprofen 600 mg tablet PO amlodipine 10 mg tablet 5 mg PO DAILY gabapentin 300 mg capsule 300 mg PO TID Jardiance 10 mg tablet 10 mg PO QAM Qty: 30 6RF Tresiba FlexTouch U-200 200 unit/mL (3 mL) insulin pen 90 unit subcut BEDTIME 30 Days Qty: 18 6RF insulin aspart U-100 [Novolog FlexPen U-100 Insulin] 100 unit/mL (3 mL) insulin pen 20 unit subcut TID 30 Days Qty: 30 6RF (DME) FreeStyle Lite Strips Strip See Rx Instructions .ROUTE .MEDSUPPLY Qty: 150 11RF Rx Instructions: As directed four times a day Referrals: Juliet Adhikari MD [Primary Care Provider] - Interventions: ED Discharge Assessment Last Done: 03/21/23 16:04 Discharge Date/Time: 03/21/23 16:05 Print Language: Malay
[2023-03-21] MEDS: Cyclobenzaprine HCl 5 MG TABLET PO (15:43)
[2023-03-21] MEDS: Ketorolac Tromethamine 15 MG/ML VIAL IM (15:43)
== END 2023-03-21 16:05 | disposition home or self-care (01) ==
PROVIDERS: Emergency Provider Emergency Medicine; PCP Internal Medicine
DX: R10.9 Unspecified abdominal pain (principal); M54.50 Low back pain, unspecified; R11.2 Nausea with vomiting, unspecified; Z79.899 Other long term (current) drug therapy
CPT/HCPCS: 36415; 80048; 81001; 81003; 85025; 96372; 99283; 99284; J1885

== ENCOUNTER 2023-03-27 12:29 | Emergency (ER) | payer MEDICARE, MEDICAID, SELFPAY ==
--- NOTE | 2023-03-27 | ECG_ITS ---
Test Reason : COCAINE USE Blood Pressure : / mmHG Vent. Rate : 095 BPM Atrial Rate : 095 BPM P-R Int : 114 ms QRS Dur : 084 ms QT Int : 338 ms P-R-T Axes : -09 028 046 degrees QTc Int : 424 ms Sinus rhythm with marked sinus arrhythmia Otherwise normal ECG When compared with ECG of 07-JAN-2023 14:11, No significant change was found Referred By: Dolores Toledo Electronically Signed By:Janes Arrington
--- NOTE | ~2023-03-27 | CT_ITS ---
EXAMINATION: CT HEAD WITHOUT CONTRAST CLINICAL INFORMATION: Head injury. COMPARISON: None available. TECHNIQUE: Contiguous axial imaging was performed from the skull base to vertex without intravenous administration of contrast. This CT examination was performed using dose optimization techniques as appropriate, variously including the following: *Automated exposure control *Adjustment of mA and/or kV according to patient size (this includes techniques or standardized protocols for targeted exams where dose is matched to indication/reason for exam; i.e. extremities or head) *Use of iterative reconstruction technique DLP: 701 mGy-cm FINDINGS: There is no acute intra-axial, extra-axial bleed, masses or midline shift. There is no acute infarction evolution. There is no edema. The lateral ventricles are symmetrical in size and configuration without enlargement. The castelan to white matter difference is maintained normal. Bone windows reveal no calvarial abnormality. There is small air-fluid level in the right maxillary sinus and complete opacification of right sphenoid sinus from mucoperiosteal thickening. Rest of the paranasal sinuses are clear. The mastoid sinuses are clear. CT/CT head/brain wo IV con IMPRESSION: 1. No acute intracranial process seen. 2. Acute right maxillary and chronic right sphenoid sinus inflammatory changes.
[2023-03-27 12:40] VITALS: BP 164/98; PULSE 120; O2SAT 97; BMI 34.3
[2023-03-27 12:53] VITALS: BP 142/87; PULSE 95; RESP 16; TEMP 37.1; O2SAT 97
[2023-03-27 13:29] LABS: Appearance Urine Cloudy; Color Urine Yellow; Glucose Urine UA Negative (Negative); Leukocyte Esterase Urine Negative (Negative); Nitrite Urine Negative (Negative); PH 5.5 (5.0-9.0); Specific Gravity - Urine 1.025 (1.005-1.025); UMIC TRIGGER UACC YES; Urine Blood Negative (Negative); Urine Ketones Trace mg/dL (Negative); Urine Protein 300 (3+) mg/dL (Neg-Trace)
[2023-03-27 13:30] LABS: Amphetamine Screen Urine Not Detected (Not Detect); Barbiturates, Urine Not Detected (Not Detect); Benzodiazepines Screen Urine Not Detected (Not Detect); Cannabinoid Screen Urine POSITIVE (Not Detect); Cocaine Screen Urine POSITIVE (Not Detect); Fentanyl, urine Not Detected (Not Detect); Opiate Screen Urine Not Detected (Not Detect); Phencyclidine Screen Urine Not Detected (Not Detect)
[2023-03-27 13:31] LABS: MANUAL DIFF FLAG NO
[2023-03-27 13:33] LABS: Basophils Absolute Auto 0.1 X10*3/uL (0.0-0.2); Basophils Percent Auto 0.5 % (0-2); Eosinophils Absolute Auto 0.3 X10*3/uL (0.0-0.4); Eosinophils Percent Auto 3.4 % (0-4); Hematocrit 42.9 % (37.0-47.0); Hemoglobin 14.6 g/dl (12.0-16.0); Imm Gran Abs Auto 0.03 X10*3/uL (0.00-0.03); Imm Gran Pct Auto 0.3 % (0.0-0.4); Lymphocytes Percent Auto 31.3 % (20-40); Mean Corpuscular Hemoglobin 31.9 pg (27.0-33.0); Mean Corpuscular Volume 93.7 fL (80.0-98.0); Mean Platelet Volume 11.3 fL (9.4-12.3); Monocytes Absolute Auto 0.7 X10*3/uL (0.1-1.2); Neutrophils Absolute Auto 5.5 x10*3/uL (2.0-8.3); Neutrophils Percent Auto 57.5 % (45-73); Platelet Count 219 X10*3/uL (160-400); Red Blood Count 4.58 X10*6/uL (4.20-5.50); White Blood Count 9.5 X10*3/uL (4.8-10.8)
[2023-03-27 13:44] LABS: Bacteria Urine 1+ (None Seen); Hyaline Casts Urine 0-2 /LPF (0-2); RBC Urine 0-2 /HPF (0-2); WBC Urine 0-5 /HPF (0-5)
[2023-03-27 13:47] LABS: Acetaminophen LAB < 3 mcg/mL (<30); Alanine Aminotransferase 14 U/L (0-31); Alkaline Phosphatase 107 U/L (39-117); Anion Gap 15 (12-20); Aspartate Amino Transferase 13 U/L (5-31); Bilirubin Total 0.2 mg/dL (0.0-1.0); Blood Urea Nitrogen 20 mg/dL (9-16); Carbon Dioxide 21 mmol/L (22-29); Chloride 108 mmol/L (96-108); Creatinine Clr Calc Pharmacy 79.6; Estimated Glomerular Filt Rate > 60; Ethanol < 10 mg/dL; Glucose Random 70 mg/dL (60-115); Potassium 4.3 mmol/L (3.3-5.1); Salicylate < 5.0 mg/dL (15-30); Sodium 140 mmol/L (135-145); Total Protein 7.9 g/dL (6.5-8.0)
[2023-03-27 14:39] VITALS: BP 116/65; PULSE 92; RESP 14; O2SAT 98
[2023-03-27 15:18] LABS: Glucose, Whole Blood 56 mg/dL (60-115)
--- NOTE | 2023-03-27 15:23 | PC.NURSE ---
POC was 56, per attending to give her OJ. she has to wait for any medications for her headache until scan is done
--- NOTE | 2023-03-27 15:41 | PC.NURSE ---
pt resting comfortably in stretcher in no apparent distress, eating. pt waiting for CT results so she can be medically cleared/go to the pod.
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
[2023-03-27] MEDS: LORazepam 1 MG TABLET PO (16:27)
[2023-03-27 16:38] LABS: Glucose, Whole Blood 162 mg/dL (60-115)
[2023-03-27 17:41] VITALS: RESP 18
--- NOTE | 2023-03-27 17:48 | PC.NURSE ---
Iris transferred over from the Main. Denies SI/HI/AVH. Advocating for D/C. Provider notified.
== END 2023-03-27 18:33 | disposition home or self-care (01) ==
PROVIDERS: Emergency Provider Emergency Medicine Emergency Medical Services; PCP Internal Medicine
DX: R45.851 Suicidal ideations (principal); F41.9 Anxiety disorder, unspecified; F31.9 Bipolar disorder, unspecified; R42 Dizziness and giddiness; Z91.81 History of falling; F19.10 Other psychoactive substance abuse, uncomplicated; E11.9 Type 2 diabetes mellitus without complications; F17.210 Nicotine dependence, cigarettes, uncomplicated; F12.90 Cannabis use, unspecified, uncomplicated; Z79.899 Other long term (current) drug therapy; Z79.4 Long term (current) use of insulin
CPT/HCPCS: 36415; 70450; 80053; 80143; 80179; 80307; 81001; 82947; 85025; 93005; 99285; S9485

== ENCOUNTER → 2023-03-27 13:55 | Outpatient (BNV) | payer MEDICARE, MEDICAID, SELFPAY | PROVIDERS: Emergency Provider Emergency Medicine Emergency Medical Services; PCP Internal Medicine; Visit Provider Internal Medicine Cardiovascular Disease | DX: I49.9 Cardiac arrhythmia, unspecified (principal) | CPT/HCPCS: 93010 ==

== ENCOUNTER 2023-06-03 14:13 | Outpatient (REF) | payer OTHER, SELFPAY ==
[2023-06-03 17:41] LABS: MANUAL DIFF FLAG NO
[2023-06-03 20:22] LABS: Basophils Percent Auto 0.3 % (0-2); Eosinophils Absolute Auto 0.5 X10*3/uL (0.0-0.4); Eosinophils Percent Auto 4.6 % (0-4); Hematocrit 39.7 % (37.0-47.0); Hemoglobin 13.1 g/dl (12.0-16.0); Imm Gran Abs Auto 0.03 X10*3/uL (0.00-0.03); Imm Gran Pct Auto 0.3 % (0.0-0.4); Lymphocytes Absolute Auto 2.8 X10*3/uL (1.2-4.9); Lymphocytes Percent Auto 25.6 % (20-40); Mean Corpuscular Hemoglobin 31.8 pg (27.0-33.0); Mean Corpuscular Volume 96.4 fL (80.0-98.0); Mean Platelet Volume 12.3 fL (9.4-12.3); Monocytes Absolute Auto 0.5 X10*3/uL (0.1-1.2); Monocytes Percent Auto 4.2 % (2-11); Neutrophils Absolute Auto 7.1 x10*3/uL (2.0-8.3); Platelet Count 206 X10*3/uL (160-400); Red Blood Count 4.12 X10*6/uL (4.20-5.50); Red Cell Distribution Width 12.8 % (11.0-16.0); White Blood Count 10.9 X10*3/uL (4.8-10.8)
== END 2023-06-03 14:14 | disposition home or self-care (01) ==
LOC: HO.CHCLDS 14:13
PROVIDERS: Visit Provider Internal Medicine
DX: R05.1 Acute cough (principal)
CPT/HCPCS: 36415; 85025

== ENCOUNTER 2023-07-07 14:09 | Outpatient (AMB) | payer OTHER, MEDICAID, SELFPAY ==
--- NOTE | 2023-07-07 14:10 | A.OFFVIS_ITS ---
Intake Vital Signs 07/07/23 14:19 Height 5 ft 4 in Weight 190 lb BMI 32.6 BP 118/66 Blood Pressure Location Lt brachial Position Sitting Pulse 101 H Pulse Source Pulse Oximeter Pulse Oximetry (%) 96 Oxygen Delivery Method Room Air Intake Visit Reasons: chronic low back pain PROCEDURES ONLY Intake Note: Pain today 6/10 Sandwich Wrapper Required: No Accompanied by: Self / Same As Patient Allergies penicillin V Allergy (Unknown, Verified 07/07/23 14:15) Hives Penicillins Allergy (Unknown, Verified 07/07/23 14:15) HIVES HPI HPI Comments History of Present Illness Details Jannet is a very pleasant 57-year-old female who presents to the office today for evaluation and management of her left lower back pain. Patient reports that she has been suffering with this pain for approximately 1 year, left lower back with referred pain into the left thigh that stops at the level of the knee. Pain is worse with standing, sitting, walking and when she tries to do any housework including washing dishes, mopping or sweeping. Pain today is rated as a 6/10, constant. She has tried nonsteroidal anti-inflammatory medications, Cymbalta, topical anti-inflammatory medications and opioid medications with no relief. She is tried cyclobenzaprine without relief. She currently takes gabapentin 800 mg 3 times daily which does not help her pain. Patient denies pain increase with flexion or extension. Denies red flag symptoms including new loss of bowel, bladder or saddle anesthesia. Patient has not been to physical therapy, acupuncture or had any previous injections. She states that massage helps her pain as well as heat. Patient has known diabetic, A1c 6 months ago was 11.9 and 3 weeks ago recheck down to 9.3 In terms of muscle damage condition is described as aching, stabbing, burning, pins and needles. Pain is negatively impacting patient's sleep, ability to perform activities of daily living and ability to function normally. Of note she had a CT approximately 1 year ago that showed L2-L3 chronic transverse process fractures. Per her PCP note DEXA scan is pending. 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 DM2 (diabetes mellitus, type 2) Depressed Anxiety Bipolar 1 disorder Diabetes 1.5, managed as type 1 Surgical History (Updated 07/06/23 @ 16:25 by DEYANIRA Kelly) H/O adenoidectomy History of tubal ligation History of cholecystectomy History of partial hysterectomy History of dental surgery Social History Household Members: Children Household Members Other:: daughter Alcohol intake: current Alcohol intake frequency: does not drink Alcohol type: wine Patient Tobacco Use Status: Current everyday Tobacco user Substance Use Type: Marijuana Current occupational status: disabled Review of Systems Const All systems reviewed & are unremarkable except as noted in HPI and below Physical Exam Vital Signs: Last Vital Signs Pulse 101 H 07/07/23 14:19 BP 118/66 07/07/23 14:19 Pulse Ox 96 07/07/23 14:19 Oxygen Delivery Method Room Air 07/07/23 14:19 BMI result Body Mass Index 32.6 General: awake, alert, oriented. Answers questions appropriately. Fully engaged in examination. Skin: warm, dry, intact HEENT: Normocephalic. Hearing intact. Cardiac: External chest normal in appearance. Respiratory: No cough, audible wheezing or stridor. Abdomen: without gross distension. MS: No obvious swelling or deformities. Able to stand on bilateral tiptoes and bilateral heels.? Able to transition from sit to stand unassisted. Ambulates with bilaterally normal heel strike and toe off Nontender over midline lumbar vertebrae and lumbar paraspinal muscles Nontender over left GTB No pain with internal external rotation of the left hip SLR negative bilaterally Bilateral lower extremity strength 5/5 Lumbar range of motion intact Tender to palpation over left PSIS [place] positive on the left Thigh thrust positive on the left SI compression positive on the left Distraction positive on the left Neurological: Oriented to person, place, time and situation. Thought process intact. Psychiatric: Appropriate mood and affect. Good judgment and insight. Results Reviewed Results Reviewed: 01/07/2023 CT abdomen pelvis with IV contrast OSSEOUS STRUCTURES: Degenerative changes of the spine. Chronic fracture of the left transverse process at the level of L2 and L3. No acute or aggressive appearing osseous findings. Assessment & Plan Assessment & Plan (1) Sacroiliac joint dysfunction of left side: Code(s): M53.3 - Sacrococcygeal disorders, not elsewhere classified Plan Jannet is a very pleasant 49-year-old female who presents the office today for evaluation management of her left lower back pain History, physical exam and provocative testing consistent with left sacroiliac joint dysfunction X-ray sacroiliac joint ordered for further eval Order placed for PT eval and treat: Diagnosis left sacroiliac joint dysfunction Tizanidine 2 mg p.o. 3 times daily as needed for pain Discussed at length with patient her diagnosis and options for treatment including diagnostic interventional testing, steroid injections, peripheral nerve stimulation and more permanent neuromodulation. All questions and concerns have been answered and patient agrees with the plan. Follow up after physical therapy, sooner if needed. Orders: Orders PT Evaluation and Treatment Today M53.3 - Sacrococcygeal disorders, not elsewhere classified XR sacroiliac joint min 3V Today M53.3 - Sacrococcygeal disorders, not elsewhere classified Medications: New tizanidine 2 mg PO TID PRN 90 tabs 1RF muscle spasticity Coding Level of Care Code New Pt Level 4 (46300) Diagnoses Sacroiliac joint dysfunction of left side M53.3
[2023-07-07 14:19] VITALS: BP 118/66; PULSE 101; O2SAT 96; BMI 32.6
== END 2023-07-07 14:37 | disposition home or self-care (01) ==
PROVIDERS: PCP Internal Medicine; Visit Provider Registered Nurse Emergency
DX: M53.3 Sacrococcygeal disorders, not elsewhere classified (principal)
CPT/HCPCS: 99204

== ENCOUNTER → 2023-07-07 14:09 | Outpatient (BNVA) | payer OTHER, MEDICAID, SELFPAY | PROVIDERS: PCP Internal Medicine; Visit Provider Registered Nurse Emergency | DX: M53.3 Sacrococcygeal disorders, not elsewhere classified (principal) | CPT/HCPCS: 99202 ==

== ENCOUNTER 2023-09-01 13:52 | Emergency (ER) | payer OTHER, MEDICAID, SELFPAY ==
--- NOTE | ~2023-09-01 | XR_ITS ---
EXAMINATION: XR CHEST CLINICAL INFORMATION: Chest pain COMPARISON: 09/09/2022 TECHNIQUE: Frontal view of the chest was obtained. FINDINGS: No significant abnormality is noted involving the heart, lungs, mediastinum, bony thorax or soft tissues. Calcified granuloma is noted at the right lung apex. XR/XR chest 1V IMPRESSION: Unremarkable examination.
[2023-09-01 14:01] VITALS: BP 121/68; BP 188/72; PULSE 80; PULSE 92; RESP 13; TEMP 37.3; O2SAT 97; O2SAT 99; BMI 34.3
--- NOTE | 2023-09-01 14:02 | ECG_ITS ---
Test Reason : CHEST PAIN Blood Pressure : / mmHG Vent. Rate : 086 BPM Atrial Rate : 086 BPM P-R Int : 126 ms QRS Dur : 082 ms QT Int : 354 ms P-R-T Axes : 009 -04 034 degrees QTc Int : 423 ms Normal sinus rhythm Normal ECG When compared with ECG of 27-MAR-2023 13:55, No significant change was found Referred By: Alexei Iniguez Electronically Signed By:SUNITA ORTEGA MD
--- NOTE | 2023-09-01 14:04 | ED.CHESTPAIN ---
HPI - Chest Pain General Chief Complaint: Chest Pain Stated Complaint: CHEST PAIN AND HEADACHE Time Seen by Provider: 09/01/23 13:56 Source: patient and EMS Mode of arrival: EMS Limitations: no limitations History of Present Illness HPI narrative: 57-year-old female history of anxiety, T2 DM, depression, bipolar 1 disorder patient presented by ambulance having chest pain and feeling dizzy, pain started about 1 hour ago after patient had lunch, pain is localized to the chest feel like heaviness on the chest with tightness of breath, pain has been constant since it started, no radiation, no fever, no chills, patient is tearful during the interview in the ED patient stated that she has been going through lot of stress just came from [place] after her father there and had to bring her mother with her to care for her in you his, no lower extremity swelling or tenderness, no fever chills. Patient feels stressed but no SI or HI or hallucination. Patient also is complaining of headache migraine that is typical for her usual migraine patient usually take amitriptyline 50 mg for migraine. Related Data Home Medications ?Medication ?Instructions ?Recorded ?Confirmed amlodipine 10 mg tablet 5 mg PO DAILY 04/16/21 04/16/21 aripiprazole 5 mg tablet mg PO 12/11/21 acetaminophen 300 mg-codeine 30 mg 1 tab PO Q6H PRN 07/07/23 tablet gabapentin 800 mg tablet mg PO DAILY 07/07/23 rosuvastatin 20 mg tablet 20 mg PO BEDTIME 07/07/23 Previous Rx's ?Medication ?Instructions ?Recorded blood sugar diagnostic (FreeStyle #150 ea 04/16/21 Lite Strips) insulin aspart U-100 100 unit/mL 20 unit (0.2 mL) subcut TID 30 04/16/21 (3 mL) subcutaneous pen (Novo days #30 mL FlexPen U-100 Insulin aspart) insulin degludec 200 unit/mL (3 90 unit (0.45 mL) subcut BEDTIME 04/16/21 mL) subcutaneous pen (Tresiba 30 days #18 mL FlexTouch U-200 insulin) metformin 500 mg tablet,extended 500 mg PO BID #30 tabs 07/20/21 release 24 hr metoclopramide HCl 10 mg tablet 10 mg PO Q6H PRN nausea and 09/09/22 (Reglan) vomiting #14 tabs omeprazole 40 mg capsule,delayed 40 mg PO DAILY #14 caps 01/07/23 release celecoxib 200 mg capsule 200 mg PO BID #60 caps 03/14/23 diclofenac sodium 1 % topical gel 4 g topical QID #100 grams 04/04/23 tizanidine 2 mg tablet 2 mg PO TID PRN muscle spasticity 07/07/23 #90 tabs Allergies Allergy/AdvReac Type Severity Reaction Status Date / Time penicillin V Allergy Unknown Hives Verified 09/01/23 14:04 Penicillins Allergy Unknown HIVES Verified 09/01/23 14:04 Review of Systems Review of Systems: All other systems are reviewed and are negative Constitutional: Reports as per HPI and Reports no additional constitutional complaints Eyes: Reports as per HPI and Reports no additional eye complaints Reports system reviewed and no additional complaints, except as documented Cardiovascular: Reports as per HPI and Reports no additional cardiovascular complaints Respiratory: Reports as per HPI and Reports no additional respiratory complaints Gastrointestinal: Reports as per HPI and Reports no additional gastrointestinal complaints Genitourinary: Reports no additional female genitourinary complaints Musculoskeletal: Reports no additional musculoskeletal complaints Skin/Breast: Reports system reviewed and no additional complaints, except as docu Psychiatric: Reports no additional psychiatric complaints Endocrine: Reports no additional endocrine complaints Hematologic/Lymphatic: Reports no additional hematologic/lymphatic complaints Allergic/Immunologic: Reports no additional allergic/immunologic complaints Reports system reviewed and no additional complaints, except as documented and Reports Abnormal speech present PENDING SALE TO [facility] Past Medical History Medical History Patellofemoral syndrome Tear of meniscus of right knee COVID-19 Tear of meniscus of right knee as current injury 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 DM2 (diabetes mellitus, type 2) Depressed Anxiety Bipolar 1 disorder Diabetes 1.5, managed as type 1 Surgical History (Updated 07/06/23 @ 16:25 by DEYANIRA Kelly) H/O adenoidectomy History of tubal ligation History of cholecystectomy History of partial hysterectomy History of dental surgery Social History Social History Household Members: Children Household Members Other:: daughter Alcohol intake: current Alcohol intake frequency: holidays/special occasions only Alcohol type: wine Patient Tobacco Use Status: Current everyday Tobacco user Smoked in Last 30 Days: Yes Use of substances other than those prescribed or required for medical reasons: Yes Substance Use Type: Marijuana Advance Directives: No Advance Directives Information Provided: Yes Do you have a plan to hurt others: No Plan Patient : No Current occupational status: disabled Physical Exam Vital Signs: Vital Signs: Last Vital Signs Temp 97.6 F 09/01/23 18:36 Pulse 66 09/01/23 18:36 Resp 16 09/01/23 18:36 BP 137/75 09/01/23 18:36 Pulse Ox 100 09/01/23 18:36 O2 Del Method Room Air 09/01/23 18:36 BMI result Body Mass Index 34.3 Vital signs have been reviewed and appear to be correct. Blood pressure elevated. Heart rate normal. Respiratory rate normal. Temperature normal. Oxygen saturation normal. Appearance: Tearful, anxious, Alert. Oriented X3. No acute distress. Head: Normal external exam. Normocephalic. Atraumatic. No Maxwell signs noted. No raccoon eyes noted Eyes: PERRLA. EOMI. Conjunctiva and sclera normal. Eyelids normal. ENT: TM's Normal. Pharynx normal. Uvula midline. Moist mucous membranes. No trismus noted. No drooling noted. No muffled voice noted. Neck: Normal inspection. Neck supple. FROM. No adenopathy. Thyroid Normal. No meningeal signs. No neck mass noted. CVS: Normal heart rate and rhythm. Heart sound normal. No murmurs noted. Pulses normal throughout. Respiratory: No respiratory distress. Painless inspiration. Breath sounds normal. No wheezes/rales/rhonchi noted. Chest nontender. No accessory muscle usage noted or decreased air movement noted. Abdomen: Soft and nontender. Bowel sounds normal in all 4 quadrants. No distention noted. No organomegaly noted. No visible injury noted. Back: No CVA tenderness. Full range of motion noted. Skin: Skin warm and dry. Normal skin color. Normal skin turgor. No rashes/lesions/lacerations noted. Extremities: No lower extremity edema. Extremities exhibit normal range of motion. Extremities nontender. Neuro: Oriented X 3. Cranial nerve exam: II-XII are grossly intact No motor deficit. No sensory deficit. Reflexes normal. Patient Orientation: Person, Place, Time and Situation, okay hygiene and grooming. Fair eye contact, attentive, no tics or tremors. Level of Consciousness: Awake, Appropriate and Alert Patient Behavior: Appropriate, Guarded, Cooperative and Anxious Mood Description: Constricted, Blunted and Apprehensive Affect Description: Constricted, Blunted and Apprehensive Patient Cognition Impaired: No Ability to Follow Directions: Excellent Speech Pattern: Clear, Appropriate and Spontaneous Speech, nonpressured, spontaneous with regular rate and rhythm, normal volume and prosody. No dysarthria. Memory Description: Intact, Immediate Intact and Short Term Intact Hallucinations: None Delusions: Not Present Thought Process: Intact Thought Content: positive for Intact, positive for Logical, denies Suicidal Ideation and denies Homicidal Ideation. Depressive Symptoms: Not present. Judgement and Insight: Limited but adequate. Course Reevaluation(s) Reevaluation #1: 57-year-old female came in with chest pain and shortness of breath, patient is going through stressful life due to her father's and caring for her mother with known history of anxiety patient will be discharged home after reassurance. patient has no SI or HI or hallucination. Time: 18:15 Medications Administered Discontinued Medications Generic Name Dose Route Start Last Admin Trade Name Freq PRN Reason Stop Dose Admin Amitriptyline HCl 50 mg 09/01/23 14:53 09/01/23 15:08 Amitriptyline Hcl 50 Mg Tablet PO 09/01/23 14:54 50 mg ONCE ONE Administration Sodium Chloride 1,000 mls @ 999 mls/hr 09/01/23 14:42 09/01/23 16:17 Ns IV 09/01/23 15:42 Infused .Q1H1M ONE Infusion Medical Decision Making Differential Diagnosis Differential Diagnoses: The differential diagnosis associated with the presentation includes (ACS, pneumonia, pleural effusion, pneumothorax, pulmonary embolism, electrolyte derangement, severe anemia, depression, anxiety.) Admission/Observation Consideration of admission/observation: Escalation of care including admission/observation considered Lab Data MDM Lab Attestation statement: I reviewed the patient's lab results. 09/01/23 14:15 09/01/23 14:15 Labs: Lab Results 09/01/23 09/01/23 09/01/23 Range/Units 14:15 14:16 17:09 WBC 8.5 (4.8-10.8) X10*3/uL RBC 4.59 (4.20-5.50) X10*6/uL Hgb 14.7 (12.0-16.0) g/dl Hct 43.3 (37.0-47.0) % MCV 94.3 (80.0-98.0) fL MCH 32.0 (27.0-33.0) pg MCHC 33.9 (31.0-35.0) g/dl RDW 12.5 (11.0-16.0) % Plt Count 196 (160-400) X10*3/uL MPV 11.6 (9.4-12.3) fL Immature Gran % (Auto) 0.4 (0.0-0.4) % Neut % (Auto) 61.5 (45-73) % Lymph % (Auto) 26.9 (20-40) % [place] % (Auto) 6.9 (2-11) % Eos % (Auto) 3.5 (0-4) % Baso % (Auto) 0.8 (0-2) % Lymph # (Auto) 2.3 (1.2-4.9) X10*3/uL [place] # (Auto) 0.6 (0.1-1.2) X10*3/uL Eos # (Auto) 0.3 (0.0-0.4) X10*3/uL Baso # (Auto) 0.1 (0.0-0.2) X10*3/uL Abs Immat Gran (auto) 0.03 (0.00-0.03) X10*3/uL Absolute Neuts (auto) 5.2 (2.0-8.3) x10*3/uL Absolute Nucleated RBC 0.000 (0.0-0.012) X10*3/uL Nucleated RBC % (auto) 0.0 (0.0-0.2) /100WBC D-Dimer High Sensitivty 219 NG/ML Sodium 138 (135-145) mmol/L Potassium 4.1 (3.3-5.1) mmol/L Chloride 107 (96-108) mmol/L Carbon Dioxide 21 L (22-29) mmol/L Anion Gap 14 (12-20) BUN 18 H (9-16) mg/dL Creatinine 0.85 (0.5-1.4) mg/dL Estim Creat Clear Calc 78.6 Estimated GFR > 60 Random Glucose 196 H (60-115) mg/dL Calcium 10.6 H (8.4-10.2) mg/dL Total Bilirubin 0.2 (0.0-1.0) mg/dL Direct Bilirubin < 0.2 (0.0-0.5) mg/dL AST 11 (5-31) U/L ALT 10 (0-31) U/L Alkaline Phosphatase 107 (39-117) U/L Troponin I High Sens 5.8 D 12.4 D (<3.5-17.0) ng/L B-Natriuretic Peptide 21 (<100) pg/mL Total Protein 7.6 (6.5-8.0) g/dL Albumin 3.8 (3.5-5.0) g/dL Lipase 16 (8-78) U/L Urine Color Urine Appearance Urine pH (5.0-9.0) Ur Specific Cooks (1.005-1.025) Urine Protein (Neg-Trace) mg/dL Urine Glucose (UA) (Negative) mg/dL Urine Ketones (Negative) mg/dL Urine Blood (Negative) Urine Nitrite (Negative) Ur Leukocyte Esterase (Negative) Urine RBC (0-2) /HPF Urine WBC (0-5) /HPF Ur Squamous Epith Cells (0-2) /HPF Urine Bacteria (None Seen) Hyaline Casts (0-2) /LPF Influenza Type A (PCR) NEGATIVE (Negative) Influenza Type B (PCR) NEGATIVE (Negative) RSV RNA Qual (PCR) NEGATIVE (Negative) SARS-CoV-2 RNA (RT-PCR) NEGATIVE (Negative) 09/01/23 Range/Units 17:20 WBC (4.8-10.8) X10*3/uL RBC (4.20-5.50) X10*6/uL Hgb (12.0-16.0) g/dl Hct (37.0-47.0) % MCV (80.0-98.0) fL MCH (27.0-33.0) pg MCHC (31.0-35.0) g/dl RDW (11.0-16.0) % Plt Count (160-400) X10*3/uL MPV (9.4-12.3) fL Immature Gran % (Auto) (0.0-0.4) % Neut % (Auto) (45-73) % Lymph % (Auto) (20-40) % [place] % (Auto) (2-11) % Eos % (Auto) (0-4) % Baso % (Auto) (0-2) % Lymph # (Auto) (1.2-4.9) X10*3/uL [place] # (Auto) (0.1-1.2) X10*3/uL Eos # (Auto) (0.0-0.4) X10*3/uL Baso # (Auto) (0.0-0.2) X10*3/uL Abs Immat Gran (auto) (0.00-0.03) X10*3/uL Absolute Neuts (auto) (2.0-8.3) x10*3/uL Absolute Nucleated RBC (0.0-0.012) X10*3/uL Nucleated RBC % (auto) (0.0-0.2) /100WBC D-Dimer High Sensitivty NG/ML Sodium (135-145) mmol/L Potassium (3.3-5.1) mmol/L Chloride (96-108) mmol/L Carbon Dioxide (22-29) mmol/L Anion Gap (12-20) BUN (9-16) mg/dL Creatinine (0.5-1.4) mg/dL Estim Creat Clear Calc Estimated GFR Random Glucose (60-115) mg/dL Calcium (8.4-10.2) mg/dL Total Bilirubin (0.0-1.0) mg/dL Direct Bilirubin (0.0-0.5) mg/dL AST (5-31) U/L ALT (0-31) U/L Alkaline Phosphatase (39-117) U/L Troponin I High Sens (<3.5-17.0) ng/L B-Natriuretic Peptide (<100) pg/mL Total Protein (6.5-8.0) g/dL Albumin (3.5-5.0) g/dL Lipase (8-78) U/L Urine Color Yellow Urine Appearance Clear Urine pH 5.5 (5.0-9.0) Ur Specific Cooks 1.010 (1.005-1.025) Urine Protein 30 (1+) H (Neg-Trace) mg/dL Urine Glucose (UA) Negative (Negative) mg/dL Urine Ketones Negative (Negative) mg/dL Urine Blood Negative (Negative) Urine Nitrite Negative (Negative) Ur Leukocyte Esterase Negative (Negative) Urine RBC 0-2 (0-2) /HPF Urine WBC 0-5 (0-5) /HPF Ur Squamous Epith Cells 0-2 (0-2) /HPF Urine Bacteria None Seen (None Seen) Hyaline Casts 0-2 (0-2) /LPF Influenza Type A (PCR) (Negative) Influenza Type B (PCR) (Negative) RSV RNA Qual (PCR) (Negative) SARS-CoV-2 RNA (RT-PCR) (Negative) Independent Interpretation I performed an independent interpretation of an: Plain X-Ray (Chest: Unremarkable examination.) Radiology Impression Discussion of test interpretation with radiology: I have reviewed the radiologist's reading. Chronic Conditions Patient?s care impacted by: Diabetes and Other (Anxiety.) Discharge Plan Discharge Clinical Impression: Anxiety, Atypical chest pain Patient Disposition: Home, Self-Care Instructions: Chest Pain (ED) Prescriptions: No Action metformin 500 mg tablet extended release 24 hr 500 mg PO BID Qty: 30 0RF celecoxib 200 mg capsule 200 mg PO BID Qty: 60 3RF diclofenac sodium 1 % gel 4 g topical QID Qty: 100 0RF metoclopramide HCl [Reglan] 10 mg tablet 10 mg PO Q6H PRN (Reason: nausea and vomiting) Qty: 14 0RF omeprazole 40 mg capsule,delayed release(DR/EC) 40 mg PO DAILY Qty: 14 0RF aripiprazole 5 mg tablet PO amlodipine 10 mg tablet 5 mg PO DAILY Tresiba FlexTouch U-200 200 unit/mL (3 mL) insulin pen 90 unit subcut BEDTIME 30 Days Qty: 18 6RF insulin aspart U-100 [Novolog FlexPen U-100 Insulin] 100 unit/mL (3 mL) insulin pen 20 unit subcut TID 30 Days Qty: 30 6RF (DME) FreeStyle Lite Strips Strip See Rx Instructions .ROUTE .MEDSUPPLY Qty: 150 11RF Rx Instructions: As directed four times a day acetaminophen-codeine 300-30 mg tablet 1 tab PO Q6H PRN rosuvastatin 20 mg tablet 20 mg PO BEDTIME gabapentin 800 mg tablet PO DAILY tizanidine 2 mg tablet 2 mg PO TID PRN (Reason: muscle spasticity) Qty: 90 1RF Referrals: Juliet Adhikari MD [Primary Care Provider] - Interventions: ED Discharge Assessment Last Done: 09/01/23 18:36 Discharge Date/Time: 09/01/23 18:37 Print Language: Lithuanian
[2023-09-01 14:22] LABS: MANUAL DIFF FLAG NO
[2023-09-01 14:27] LABS: Basophils Absolute Auto 0.1 X10*3/uL (0.0-0.2); Basophils Percent Auto 0.8 % (0-2); Eosinophils Absolute Auto 0.3 X10*3/uL (0.0-0.4); Eosinophils Percent Auto 3.5 % (0-4); Hematocrit 43.3 % (37.0-47.0); Hemoglobin 14.7 g/dl (12.0-16.0); Imm Gran Abs Auto 0.03 X10*3/uL (0.00-0.03); Imm Gran Pct Auto 0.4 % (0.0-0.4); Lymphocytes Absolute Auto 2.3 X10*3/uL (1.2-4.9); Lymphocytes Percent Auto 26.9 % (20-40); Mean Corpuscular HGB Conc 33.9 g/dl (31.0-35.0); Mean Corpuscular Volume 94.3 fL (80.0-98.0); Mean Platelet Volume 11.6 fL (9.4-12.3); Monocytes Absolute Auto 0.6 X10*3/uL (0.1-1.2); Monocytes Percent Auto 6.9 % (2-11); Neutrophils Absolute Auto 5.2 x10*3/uL (2.0-8.3); Neutrophils Percent Auto 61.5 % (45-73); Platelet Count 196 X10*3/uL (160-400); Red Blood Count 4.59 X10*6/uL (4.20-5.50); Red Cell Distribution Width 12.5 % (11.0-16.0); White Blood Count 8.5 X10*3/uL (4.8-10.8)
[2023-09-01 14:37] LABS: D Dimer High Sensitivity 219 NG/ML
[2023-09-01 14:38] LABS: Alanine Aminotransferase 10 U/L (0-31); Albumin Level 3.8 g/dL (3.5-5.0); Alkaline Phosphatase 107 U/L (39-117); Anion Gap 14 (12-20); Aspartate Amino Transferase 11 U/L (5-31); Bilirubin Direct < 0.2 mg/dL (0.0-0.5); Bilirubin Total 0.2 mg/dL (0.0-1.0); Blood Urea Nitrogen 18 mg/dL (9-16); Calcium 10.6 mg/dL (8.4-10.2); Carbon Dioxide 21 mmol/L (22-29); Chloride 107 mmol/L (96-108); Creatinine Clr Calc Pharmacy 78.6; Estimated Glomerular Filt Rate > 60; Glucose Random 196 mg/dL (60-115); Lipase 16 U/L (8-78); Potassium 4.1 mmol/L (3.3-5.1); Sodium 138 mmol/L (135-145); Total Protein 7.6 g/dL (6.5-8.0)
[2023-09-01 14:45] LABS: B Type Natriuretic Peptide 21 pg/mL (<100)
[2023-09-01 14:46] LABS: Troponin-I High Sensitivity 5.8 ng/L (<3.5-17.0)
[2023-09-01] MEDS: 0.9 % Sodium Chloride 1,000 ML 999 ML IV (14:56)
[2023-09-01 14:59] LABS: Influenza A PCR NEGATIVE (Negative); Influenza B PCR NEGATIVE (Negative); Resp Syncy Virus RNA Qual PCR NEGATIVE (Negative); SARS COV2 PCR INHOUSE NEGATIVE (Negative)
--- NOTE | 2023-09-01 15:00 | PC.NURSE ---
called pharmacy for med not available in [facility]
[2023-09-01] MEDS: Amitriptyline HCl 50 MG TABLET PO (15:08)
[2023-09-01 17:21] VITALS: BP 137/75; PULSE 66; RESP 16; TEMP 36.4; O2SAT 100
[2023-09-01 17:41] LABS: Appearance Urine Clear; Color Urine Yellow; Glucose Urine UA Negative (Negative); Leukocyte Esterase Urine Negative (Negative); Nitrite Urine Negative (Negative); PH 5.5 (5.0-9.0); UMIC TRIGGER UACC YES; Urine Blood Negative (Negative); Urine Ketones Negative (Negative); Urine Protein 30 (1+) mg/dL (Neg-Trace)
[2023-09-01 17:43] LABS: Troponin-I High Sensitivity 12.4 ng/L (<3.5-17.0)
[2023-09-01 17:46] LABS: Bacteria Urine None Seen (None Seen); Hyaline Casts Urine 0-2 /LPF (0-2); RBC Urine 0-2 /HPF (0-2); Squamous Epithelial Cell Urine 0-2 /HPF (0-2); WBC Urine 0-5 /HPF (0-5)
[2023-09-01 18:36] VITALS: BP 137/75; PULSE 66; RESP 16; TEMP 36.4; O2SAT 100
== END 2023-09-01 18:37 | disposition home or self-care (01) ==
PROVIDERS: Emergency Provider Emergency Medicine; PCP Internal Medicine
DX: R07.89 Other chest pain (principal); F41.9 Anxiety disorder, unspecified; E13.22 Other specified diabetes mellitus with diabetic chronic kidney disease; N18.9 Chronic kidney disease, unspecified; Z63.4 Disappearance and death of family member; Z03.818 Encounter for observation for suspected exposure to other biological agents ruled out
CPT/HCPCS: 0241U; 36415; 71045; 80048; 80076; 81001; 83690; 83880; 84484; 85025; 85379; 93005; 96360; 99284; 99285

== ENCOUNTER → 2023-09-01 14:02 | Outpatient (BNV) | payer OTHER, MEDICAID, SELFPAY | PROVIDERS: Emergency Provider Emergency Medicine; PCP Internal Medicine; Visit Provider Internal Medicine Cardiovascular Disease | DX: R07.9 Chest pain, unspecified (principal) | CPT/HCPCS: 93010 ==

== ENCOUNTER 2023-09-22 02:10 | Emergency (ER) | payer OTHER, SELFPAY ==
--- NOTE | ~2023-09-22 | XR_ITS ---
EXAMINATION: XR KNEE, LEFT CLINICAL INFORMATION: Left knee pain COMPARISON: 12/11/2021 TECHNIQUE: Two views of the left knee. FINDINGS: Osseous alignment is anatomic. There is slight narrowing of the medial joint space. No acute fracture is seen. No significant effusion. XR/XR knee LT 2V IMPRESSION: No acute findings. Slight narrowing of the medial joint space.
[2023-09-22 02:17] VITALS: BP 141/102; PULSE 79; RESP 19; TEMP 36.2; O2SAT 99; BMI 32.6
[2023-09-22] MEDS: Acetaminophen 325 MG TABLET 975 MG PO (04:48)
[2023-09-22 05:36] VITALS: BP 122/86; PULSE 64; RESP 16; TEMP 36.8; O2SAT 94
--- NOTE | 2023-09-22 06:04 | PC.NURSE ---
Pt extremely upset at the lengthy wait to see provider. T/w and multiple other staff members explaining that the one provider on at night is extremely behind. notified that pt and visitor upset, yelling at staff. remained unable to see pt.
--- NOTE | 2023-09-22 06:15 | PC.NURSE ---
After screaming at staff and t/w over the lengthy wait to see a provider, this patient requested to leave, banging on the doors by [facility], screaming to be let out. MD aware but remained unable to see pt.
== END 2023-09-22 06:16 | disposition left against medical advice (07) ==
PROVIDERS: Emergency Provider Emergency Medicine; PCP Internal Medicine
DX: M25.562 Pain in left knee (principal); M54.50 Low back pain, unspecified
CPT/HCPCS: 73560; 99283

== ENCOUNTER 2023-09-22 17:43 | Inpatient (IN) | payer OTHER, SELFPAY ==
--- NOTE | ~2023-09-22 | XR_ITS ---
EXAMINATION: XR CHEST CLINICAL INFORMATION: Chest pain. COMPARISON: Prior chest radiographs, including a 2821. TECHNIQUE: Frontal view of the chest was obtained. FINDINGS: No significant abnormality is noted involving the heart, lungs, mediastinum, bony thorax or soft tissues. A benign, stable 4 mm nodule is seen at the right apex, unchanged from 12/13/2020. This requires no imaging follow-up. XR/XR chest 1V IMPRESSION: No active cardiopulmonary disease.
--- NOTE | ~2023-09-22 | NM_ITS ---
Myocardial perfusion study TECHNIQUE: The patient was planned for a stress test on the plantar was changed to cardiac catheterization. Patient resting myocardial perfusion study performed on 09/23/2023. Patient is injected with 30 mCi of technetium sestamibi intravenously and images then performed with a SPECT camera interlaced with gating device. Images obtained with and without CT attenuation. Total DLP 78 mGy-cm. FINDINGS: Non attenuated images show mildly reduced uptake in the anterior as well as basal inferior wall of the LV myocardium. Attenuation corrected images show minimal thinning of the apex of the LV myocardium. The gated study reveals mildly reduced LV systolic function at 49%. There are no obvious regional wall motion abnormalities noted. CONCLUSION: Resting perfusion study showed overall normal myocardial perfusion.
--- NOTE | 2023-09-22 17:56 | ECG_ITS ---
Test Reason : CHEST PAIN Blood Pressure : / mmHG Vent. Rate : 078 BPM Atrial Rate : 078 BPM P-R Int : 118 ms QRS Dur : 090 ms QT Int : 368 ms P-R-T Axes : -16 004 018 degrees QTc Int : 419 ms Normal sinus rhythm Normal ECG When compared with ECG of 01-SEP-2023 14:02, No significant change was found Referred By: Generic ED Physician Electronically Signed By:SUNITA ORTEGA MD
[2023-09-22 17:57] VITALS: BP 149/69; PULSE 82; O2SAT 100
[2023-09-22 18:13] LABS: Glucose, Whole Blood 135 mg/dL (60-115)
--- NOTE | 2023-09-22 18:24 | ED.CHESTPAIN ---
HPI - Chest Pain General Chief Complaint: Chest Pain Stated Complaint: CHEST PAIN Time Seen by Provider: 09/22/23 18:22 Source: patient, RN notes reviewed and old records reviewed Mode of arrival: EMS Limitations: no limitations History of Present Illness ED Provider: Debbi Hammond PA-C HPI narrative: 57-year-old female with history of IDDM, anxiety, and bipolar 1 presents for evaluation of constant, sharp central chest pain x1 hour.. She was being driven to the ED by her son for symptoms of hypoglycemia when she began having chest pain, so her son pulled over by a police academy instructor and EMS was called to bring her to this ED. She received nitro and ASA in ambulance. The chest pain was located in the center of her chest radiating to her left shoulder and graded a 20/10 while she was on the way here. At time of evaluation in the ED the pain is constant in the center of her chest, sharp, non-radiating, and a 7/10. Pain worsened by deep breathes. Patient admits to intermittent cocaine use about 3x/month, last use was 5 days ago. She recalls one episode of chest pain similar to this but less severe and was seen here on 08/31, was told it was a panic attack. She does not have a news cameraman and she has never had a stress test. She is an active smoker. MD complaint: chest pain Onset (ago): hour(s) (3) Timing of current episode: constant Prior episodes: Yes Onset: other (driving to hospital for concern of hypoglycemia) Pain location: substernal Pain radiation: left shoulder Severity: severe Pain scale (0-10): 7 Quality: sharp Relieving factors: nothing Exacerbating factors: inspiration Treatment prior to arrival: aspirin and nitroglycerin Risk Factors Coronary artery disease risk factors: diabetes, smoking history (~43 pack year hx), hypertension and cocaine use Related Data Home Medications ?Medication ?Instructions ?Recorded ?Confirmed amlodipine 10 mg tablet 5 mg PO DAILY 04/16/21 04/16/21 aripiprazole 5 mg tablet mg PO 12/11/21 acetaminophen 300 mg-codeine 30 mg 1 tab PO Q6H PRN 07/07/23 tablet gabapentin 800 mg tablet mg PO DAILY 07/07/23 rosuvastatin 20 mg tablet 20 mg PO BEDTIME 07/07/23 Previous Rx's ?Medication ?Instructions ?Recorded blood sugar diagnostic (FreeStyle #150 ea 04/16/21 Lite Strips) insulin aspart U-100 100 unit/mL 20 unit (0.2 mL) subcut TID 30 04/16/21 (3 mL) subcutaneous pen (Novo days #30 mL FlexPen U-100 Insulin aspart) insulin degludec 200 unit/mL (3 90 unit (0.45 mL) subcut BEDTIME 04/16/21 mL) subcutaneous pen (Tresiba 30 days #18 mL FlexTouch U-200 insulin) metformin 500 mg tablet,extended 500 mg PO BID #30 tabs 07/20/21 release 24 hr metoclopramide HCl 10 mg tablet 10 mg PO Q6H PRN nausea and 09/09/22 (Reglan) vomiting #14 tabs omeprazole 40 mg capsule,delayed 40 mg PO DAILY #14 caps 01/07/23 release celecoxib 200 mg capsule 200 mg PO BID #60 caps 03/14/23 diclofenac sodium 1 % topical gel 4 g topical QID #100 grams 04/04/23 tizanidine 2 mg tablet 2 mg PO TID PRN muscle spasticity 07/07/23 #90 tabs Allergies Allergy/AdvReac Type Severity Reaction Status Date / Time penicillin V Allergy Unknown Hives Verified 09/22/23 18:32 Penicillins Allergy Unknown HIVES Verified 09/22/23 18:32 Review of Systems Review of Systems: Yes all other systems are reviewed and are negative PMFSH Past Medical History Medical History Patellofemoral syndrome Tear of meniscus of right knee COVID-19 Tear of meniscus of right knee as current injury 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 DM2 (diabetes mellitus, type 2) Depressed Anxiety Bipolar 1 disorder Diabetes 1.5, managed as type 1 Surgical History (Updated 07/06/23 @ 16:25 by DEYANIRA Kelly) H/O adenoidectomy History of tubal ligation History of cholecystectomy History of partial hysterectomy History of dental surgery Social History Social History Household Members: Children Household Members Other:: daughter Alcohol intake: current Alcohol intake frequency: holidays/special occasions only Alcohol type: wine Patient Tobacco Use Status: Current everyday Tobacco user Substance Use Type: Marijuana Advance Directives: No Advance Directives Information Provided: No Current occupational status: disabled Physical Exam Vital Signs: Vital Signs: Last Vital Signs Pulse 78 09/22/23 18:31 Resp 18 09/22/23 18:31 BP 177/89 H 09/22/23 18:31 Pulse Ox 100 09/22/23 18:31 O2 Del Method Room Air 09/22/23 18:31 BMI result Body Mass Index 36.0 Appearance: Alert. Oriented X3. Appears anxious. Head: normocephalic, atraumatic. Eyes: Pupils equal, round and reactive to light. Neck: Normal inspection. Neck supple. CVS: Normal heart rate and rhythm. Pulses normal. Respiratory: No respiratory distress. Breath sounds normal. Abdomen: Soft and nontender. +BS x4 Skin: Skin warm and dry. Normal skin color. Normal skin turgor. No rashes. Extremities: No lower extremity edema. Neuro/psych: Oriented X 3. No motor deficit. No sensory deficit. CN II-XII grossly intact. Normal speech and cognition. Course Reevaluation(s) Reevaluation #1: Received critical result from the lab that the troponin went up to 74. Patient reports 7/10 chest pain. Pain is central, nonradiating at this time. She reports improvement with aspirin, nitro, morphine. Asking for additional pain medication that is not morphine because it is making her have abdominal bloating. Repeat EKG ordered. Will repeat sublingual nitro and see if this improves her pain. Will consult Cardiology Time: 21:44 Reevaluation #2: Second EKG is unchanged. Pain improved after sublingual nitro. Will start heparin and admit the patient for further evaluation and treatment. Cardiology recommending q.6 troponin Time: 23:06 Consultations Consultation #1: Dr. Abarca from Cardiology Medications Administered Discontinued Medications Generic Name Dose Route Start Last Admin Trade Name Freq PRN Reason Stop Dose Admin Morphine Sulfate 4 mg 09/22/23 18:42 09/22/23 18:53 Morphine Sulfate 4 Mg/Ml Cartridge IVPUSH 09/22/23 18:43 4 mg ONCE ONE Administration Protocol Nitroglycerin 0.4 mg 09/22/23 21:42 09/22/23 21:56 Nitroglycerin 0.4 Mg Tab.Subl SUBLINGUAL 09/22/23 21:43 0.4 cap ONCE ONE Administration Ondansetron HCl 4 mg 09/22/23 18:42 09/22/23 18:53 Ondansetron Hcl 4 Mg/2 Ml Vial IVPUSH 09/22/23 18:43 4 mg ONCE ONE Administration Medical Decision Making Medical Decision Making [facility] Narrative: Patient is a 57-year-old female with history of IDDM, anxiety, and bipolar 1 presents for evaluation of central chest pain radiating to the left shoulder x1 hour. radiation has since resolved and pain is primarily central. improved w/ nitro and ASA. Concern for ACS as patient has several risk factors and pain was radiating to left shoulder. EKG normal. Troponins 40---> 74. Chest xray was normal, not concerning for pneumonia. Per patient interview and chart review she has had prior similar instances of this chest pain during times of emotional stress. This episode of chest pain occurred while she was already being driven to the ED for feeling 'out of it' from low blood sugar readings at home. EKG without ischemic changes however her delta troponin, risk factors, heart score are concerning for cardiac event. Heparin heparin started and Cardiology consulted. Patient to be admitted for further management. Differential Diagnosis Differential Diagnoses: The differential diagnosis associated with the presentation includes ACS, coronary vasospasm, PE, pneumonia, anxiety/panic attack, hypoglycemia Admission/Observation Consideration of admission/observation: Escalation of care including admission/observation considered Consult Healthcare Provider Management of the patient was discussed with: Hospitalist and Director Of Environmental Services Lab Data [facility] Lab Attestation statement: I reviewed the patient's lab results. 09/22/23 18:52 09/22/23 18:52 Labs: Lab Results 09/22/23 09/22/23 09/22/23 Range/Units 18:06 18:52 20:54 WBC 11.6 H (4.8-10.8) X10*3/uL RBC 4.47 (4.20-5.50) X10*6/uL Hgb 14.3 (12.0-16.0) g/dl Hct 42.5 (37.0-47.0) % MCV 95.1 (80.0-98.0) fL MCH 32.0 (27.0-33.0) pg MCHC 33.6 (31.0-35.0) g/dl RDW 12.5 (11.0-16.0) % Plt Count 186 (160-400) X10*3/uL MPV 11.4 (9.4-12.3) fL Immature Gran % (Auto) 0.3 (0.0-0.4) % Neut % (Auto) 72.2 (45-73) % Lymph % (Auto) 18.6 L (20-40) % [place] % (Auto) 6.5 (2-11) % Eos % (Auto) 2.0 (0-4) % Baso % (Auto) 0.4 (0-2) % Lymph # (Auto) 2.2 (1.2-4.9) X10*3/uL [place] # (Auto) 0.8 (0.1-1.2) X10*3/uL Eos # (Auto) 0.2 (0.0-0.4) X10*3/uL Baso # (Auto) 0.1 (0.0-0.2) X10*3/uL Abs Immat Gran (auto) 0.03 (0.00-0.03) X10*3/uL Absolute Neuts (auto) 8.4 H (2.0-8.3) x10*3/uL Absolute Nucleated RBC 0.000 (0.0-0.012) X10*3/uL Nucleated RBC % (auto) 0.0 (0.0-0.2) /100WBC PT 12.0 (11.1-13.3) SEC INR 1.0 (0.9-1.1) APTT 27.8 (26.0-36.8) SEC Sodium 141 (135-145) mmol/L Potassium 3.9 (3.3-5.1) mmol/L Chloride 108 (96-108) mmol/L Carbon Dioxide 23 (22-29) mmol/L Anion Gap 14 (12-20) BUN 22 H (9-16) mg/dL Creatinine 0.90 (0.5-1.4) mg/dL Estim Creat Clear Calc 71.7 Estimated GFR > 60 POC Glucose 135 H (60-115) mg/dL Random Glucose 99 (60-115) mg/dL Calcium 11.0 H (8.4-10.2) mg/dL Magnesium 1.9 (1.6-2.6) mg/dL Total Bilirubin 0.1 (0.0-1.0) mg/dL Direct Bilirubin < 0.2 (0.0-0.5) mg/dL AST 13 (5-31) U/L ALT 11 (0-31) U/L Alkaline Phosphatase 105 (39-117) U/L Troponin I High Sens 41.0 H D 74.1 H* D (<3.5-17.0) ng/L B-Natriuretic Peptide 14 (<100) pg/mL Total Protein 7.6 (6.5-8.0) g/dL Albumin 4.0 (3.5-5.0) g/dL Urine Color Yellow Urine Appearance Clear Urine pH 5.5 (5.0-9.0) Ur Specific [place] 1.025 (1.005-1.025) Urine Protein 100 (2+) H (Neg-Trace) mg/dL Urine Glucose (UA) Negative (Negative) mg/dL Urine Ketones Trace (Negative) mg/dL Urine Blood Negative (Negative) Urine Nitrite Negative (Negative) Ur Leukocyte Esterase Negative (Negative) Urine RBC 0-2 (0-2) /HPF Urine WBC 0-5 (0-5) /HPF Ur Squamous Epith Cells 6-10 (0-2) /HPF Urine Bacteria 1+ (None Seen) Hyaline Casts 3-5 (0-2) /LPF Urine Opiates Screen POSITIVE H (Not Detect) Ur Buprenorphine Scrn Not Detected (Not Detect) ng/mL Ur Oxycodone Screen Positive H (Not Detect) ng/mL Urine Methadone Screen Not Detected (Not Detect) ng/mL Urine Fentanyl Screen Not Detected (Not Detect) Ur Barbiturates Screen Not Detected (Not Detect) Ur Phencyclidine Scrn Not Detected (Not Detect) Ur Amphetamines Screen Not Detected (Not Detect) U Benzodiazepines Scrn Not Detected (Not Detect) Urine Cocaine Screen POSITIVE H (Not Detect) U Marijuana (THC) Screen POSITIVE H (Not Detect) Ethyl Alcohol < 10 mg/dL Independent Interpretation I performed an independent interpretation of an: EKG and Plain X-Ray Interpretation: EKG 1 @ 18:01m - normal sinus rhythm, HR 78 bpm, normal [place] interval, normal QTC, no ST segment elevations or depressions. EKG 2 @ 21:51 - normal sinus rhythm, ventricular rate 68 beats per minute, no ST segment elevations or depressions. No QTC prolongation Radiology Impression Discussion of test interpretation with radiology: I have reviewed the radiologist's reading. Radiologist Impression: EXAMINATION: XR CHEST CLINICAL INFORMATION: Chest pain. COMPARISON: Prior chest radiographs, including a 2821. TECHNIQUE: Frontal view of the chest was obtained. FINDINGS: No significant abnormality is noted involving the heart, lungs, mediastinum, bony thorax or soft tissues. A benign, stable 4 mm nodule is seen at the right apex, unchanged from 12/13/2020. This requires no imaging follow-up. XR/XR chest 1V IMPRESSION: No active cardiopulmonary disease. Independent Historian Clinical information obtained from an independent historian. History obtained from or confirmed by: EMS External Record Review External record reviewed: Office record, Outpatient record, Prior outpatient labs and Prior outpatient radiology Prescription Management I considered prescription management with: Pain Medication and Other (Heparin, aspirin, beta-robbie, anxiolytic) Chronic Conditions Patient?s care impacted by: Diabetes, Hypertension and Other (Anxiety) Scores Heart Score History: -1- moderately suspicious ECG: -0- normal Age: -1- >45 - <65 Risk factory: -2- 3 or more risk factors or treated atherosclerosis Troponin: -1- >1 - <3x normal limit Score: 5 Risk: 16.6% Critical Care Time Critical Care Time Critical Care Time: Yes Total Critical Care Time: 44 Attestation: I have personally provided critical care time exclusive of time spent on separately billable procedures. Time includes review of lab data, radiology results, discussion with consultants, and monitoring for potential decompensation. Intervention performed as documented. Discharge Plan Discharge Clinical Impression: Non-ST elevation [place] (NSTEMI) Patient Disposition: Admitted As Inpatient
[2023-09-22 18:31] VITALS: BP 177/89; PULSE 78; RESP 18; O2SAT 100; BMI 36.9
[2023-09-22] MEDS: Morphine Sulfate 4 MG/ML CARTRIDGE IVPUSH (18:53)
[2023-09-22] MEDS: ondansetron HCL 4 MG/2 ML VIAL IVPUSH (18:53)
[2023-09-22 18:56] LABS: MANUAL DIFF FLAG NO
[2023-09-22 19:03] LABS: Basophils Absolute Auto 0.1 X10*3/uL (0.0-0.2); Basophils Percent Auto 0.4 % (0-2); Eosinophils Absolute Auto 0.2 X10*3/uL (0.0-0.4); Hematocrit 42.5 % (37.0-47.0); Hemoglobin 14.3 g/dl (12.0-16.0); Imm Gran Abs Auto 0.03 X10*3/uL (0.00-0.03); Imm Gran Pct Auto 0.3 % (0.0-0.4); Lymphocytes Absolute Auto 2.2 X10*3/uL (1.2-4.9); Lymphocytes Percent Auto 18.6 % (20-40); Mean Corpuscular HGB Conc 33.6 g/dl (31.0-35.0); Mean Corpuscular Volume 95.1 fL (80.0-98.0); Mean Platelet Volume 11.4 fL (9.4-12.3); Monocytes Absolute Auto 0.8 X10*3/uL (0.1-1.2); Monocytes Percent Auto 6.5 % (2-11); Neutrophils Absolute Auto 8.4 x10*3/uL (2.0-8.3); Neutrophils Percent Auto 72.2 % (45-73); Platelet Count 186 X10*3/uL (160-400); Red Blood Count 4.47 X10*6/uL (4.20-5.50); Red Cell Distribution Width 12.5 % (11.0-16.0); White Blood Count 11.6 X10*3/uL (4.8-10.8)
[2023-09-22 19:06] LABS: Partial Thromboplastin Time 27.8 SEC (26.0-36.8)
[2023-09-22 19:13] LABS: Alanine Aminotransferase 11 U/L (0-31); Alkaline Phosphatase 105 U/L (39-117); Anion Gap 14 (12-20); Aspartate Amino Transferase 13 U/L (5-31); Bilirubin Direct < 0.2 mg/dL (0.0-0.5); Bilirubin Total 0.1 mg/dL (0.0-1.0); Blood Urea Nitrogen 22 mg/dL (9-16); Carbon Dioxide 23 mmol/L (22-29); Chloride 108 mmol/L (96-108); Creatinine Clr Calc Pharmacy 71.7; Estimated Glomerular Filt Rate > 60; Ethanol < 10 mg/dL; Glucose Random 99 mg/dL (60-115); Magnesium 1.9 mg/dL (1.6-2.6); Potassium 3.9 mmol/L (3.3-5.1); Sodium 141 mmol/L (135-145); Total Protein 7.6 g/dL (6.5-8.0)
[2023-09-22 19:17] LABS: B Type Natriuretic Peptide 14 pg/mL (<100)
--- NOTE | 2023-09-22 20:30 | PC.NURSE ---
this RN resumed care of pt at 1900. a&ox4. vss and up to date. nsr on the air sampling and monitoring. pt presents to ED w/ sudden onset/intermittent sternal c/p radiating to left shoulder around 1600. EMS administered ASA/nitro w/ relief. pt now currently stating intermittent c/p - rating at a 6/10. no sob/wob noted. denies n/v/dizziness. respirations even/unlabored. plan of care ongoing. call naylor placed within reach.
[2023-09-22 21:02] LABS: Appearance Urine Clear; Color Urine Yellow; Glucose Urine UA Negative (Negative); Leukocyte Esterase Urine Negative (Negative); Nitrite Urine Negative (Negative); PH 5.5 (5.0-9.0); Specific Gravity - Urine 1.025 (1.005-1.025); UMIC TRIGGER UACC YES; Urine Blood Negative (Negative); Urine Ketones Trace mg/dL (Negative); Urine Protein 100 (2+) mg/dL (Neg-Trace)
[2023-09-22 21:11] LABS: Bacteria Urine 1+ (None Seen); RBC Urine 0-2 /HPF (0-2); WBC Urine 0-5 /HPF (0-5)
--- NOTE | 2023-09-22 21:12 | PC.NURSE ---
repeat trop/urine obtained/sent to lab by tech. plan of care ongoing.
[2023-09-22 21:25] LABS: Amphetamine Screen Urine Not Detected (Not Detect); Barbiturates, Urine Not Detected (Not Detect); Benzodiazepines Screen Urine Not Detected (Not Detect); Buprenorphine Scr Not Detected (Not Detect); Cannabinoid Screen Urine POSITIVE (Not Detect); Cocaine Screen Urine POSITIVE (Not Detect); Fentanyl, urine Not Detected (Not Detect); Methadone Screen, Urine Not Detected (Not Detect); Opiate Screen Urine POSITIVE (Not Detect); Oxycodone Screen Urine Positive (Not Detect); Phencyclidine Screen Urine Not Detected (Not Detect)
--- NOTE | 2023-09-22 21:38 | ECG_ITS ---
Test Reason : CHESTPAIN Blood Pressure : / mmHG Vent. Rate : 068 BPM Atrial Rate : 068 BPM P-R Int : 110 ms QRS Dur : 086 ms QT Int : 402 ms P-R-T Axes : 017 010 029 degrees QTc Int : 427 ms Sinus rhythm with short RI Otherwise normal ECG When compared with ECG of 22-SEP-2023 18:01, No significant change was found Referred By: Altagracia Hammond Electronically Signed By:SUNITA ORTEGA MD
[2023-09-22 21:39] LABS: Troponin-I High Sensitivity 74.1 ng/L (<3.5-17.0)
[2023-09-22] MEDS: Nitroglycerin 0.4 MG TAB.SUBL SUBLINGUAL (21:56)
--- NOTE | 2023-09-22 21:58 | PC.NURSE ---
pt verbalizing increase in chest pain. repeat ekg performed by tech. 1st dose of nitro administered per provider order. effectiveness pending.
[2023-09-22 22:25] VITALS: BMI 36.0
--- NOTE | 2023-09-22 22:35 | P.HPHOSP_ITS ---
History of Present Illness Date of Service: 09/22/23 Chief Complaint: Chest pain This is a 57-year-old female with pertinent history of polysubstance use disorder, mood disorder, insulin-dependent diabetes mellitus, hypertension, mixed hyperlipidemia, gastroesophageal reflux disease who presents to the emergency department for evaluation of chest discomfort. Patient states she had sudden onset of midsternal chest discomfort at around 16:00 on the day of presentation. She was getting ready to attend her [employer] performance in school. The chest discomfort was constant and lasted until she came to the ER. Not worse with exacerbation and did not relief with rest. It was relieved with nitroglycerin in the ER. States she had a similar episode about 3 weeks ago which lasted only for a couple of minutes. The chest discomfort was associated with nausea and radiated to the left shoulder. No sweating. No fever, chills, shortness of breath, palpitations, abdominal pain, changes in urinary or bowel habits. In the emergency department, troponin was found to be elevated and patient was initiated on IV heparin after Cardiology consultation. UDS positive for opiates and cocaine Review of Systems 2 Constitutional: Constitutional: Reports no additional constitutional complaints Cardiovascular: Cardiovascular: Reports chest pain and Reports chest pain at rest Respiratory: Respiratory: Reports no additional respiratory complaints Gastrointestinal: Gastrointestinal: Reports no additional gastrointestinal complaints Genitourinary: Genitourinary: Reports no additional female genitourinary complaints [facility] Medical History Patellofemoral syndrome Tear of meniscus of right knee COVID-19 Tear of meniscus of right knee as current injury 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 DM2 (diabetes mellitus, type 2) Depressed Anxiety Bipolar 1 disorder Diabetes 1.5, managed as type 1 Surgical History H/O adenoidectomy History of tubal ligation History of cholecystectomy History of partial hysterectomy History of dental surgery Social History Household Members: Children Household Members Other:: daughter Alcohol intake: current Alcohol intake frequency: holidays/special occasions only Alcohol type: wine Patient Tobacco Use Status: Current everyday Tobacco user Substance Use Type: Marijuana Advance Directives: No Advance Directives Information Provided: No Current occupational status: disabled Meds Allergies Allergy/AdvReac Type Severity Reaction Status Date / Time penicillin V Allergy Unknown Hives Verified 09/22/23 18:32 Penicillins Allergy Unknown HIVES Verified 09/22/23 18:32 Active Medications: Current Medications Acetaminophen (Acetaminophen 325 Mg Tablet) 650 mg PO Q6H PRN PRN Reason: Pain, Mild (Pain Scale 1-3) Heparin Sodium (Porcine) (Heparin Sodium,Porcine 5,000 Unit/Ml Vial) 3,600 unit 40 unit/kg (3600 unit) IVPUSH PROTOCOL BOLUS PRN; Protocol PRN Reason: 40 unit/kg - Heparin Protocol Heparin Sodium (Porcine) (Heparin Sodium,Porcine 5,000 Unit/Ml Vial) 7,100 unit 80 unit/kg (7100 unit) IVPUSH PROTOCOL BOLUS PRN; Protocol PRN Reason: 80 unit/kg - Heparin Protocol Heparin Sodium/Sodium Chloride (Heparin Sodium,Porcine/1/2ns) 25,000 unit in 250 mls @ 0 mls/hr IVCONT .Q0M [facility]; Protocol Melatonin (Melatonin 3 Mg Tablet) 6 mg PO BEDTIME PRN PRN Reason: Insomnia Ondansetron HCl (Ondansetron Hcl 4 Mg/2 Ml Vial) 4 mg IVPUSH Q8H PRN PRN Reason: Nausea and Vomiting Sodium Chloride (0.9 % Sodium Chloride Flush 3 Ml Syringe) [facility] Medications ?Medication ?Instructions ?Recorded ?Confirmed ?Last Taken ?Type amlodipine 10 mg tablet 5 mg PO DAILY 04/16/21 04/16/21 Unknown History aripiprazole 5 mg tablet mg PO 12/11/21 Unknown History acetaminophen 300 mg-codeine 30 mg 1 tab PO Q6H PRN 07/07/23 Unknown History tablet gabapentin 800 mg tablet mg PO DAILY 07/07/23 Unknown History rosuvastatin 20 mg tablet 20 mg PO BEDTIME 07/07/23 Unknown History Physical Exam 2 Vital Signs and Narrative: Vital Signs: Last Vital Signs Pulse 78 09/22/23 18:31 Resp 18 09/22/23 18:31 BP 177/89 H 09/22/23 18:31 Pulse Ox 100 09/22/23 18:31 O2 Del Method Room Air 09/22/23 18:31 BMI result Body Mass Index 36.0 Middle-aged female lying in bed in no distress Neck supple, no JVD Regular rate and rhythm, S1-S2 heard Regular breath sounds bilaterally, no wheezing or crackles appreciated Abdomen soft nontender, no guarding, no rigidity Patient is awake, alert and oriented to self, place, time and person ; no focal motor deficit Psych: Normal mood No pedal edema Results Labs 09/22/23 18:52 09/22/23 18:52 Labs: Laboratory Results - last 24 hr 09/22/23 09/22/23 09/22/23 18:06 18:52 20:54 MCV 95.1 MCH 32.0 MCHC 33.6 RDW 12.5 Plt Count 186 MPV 11.4 Immature Gran % (Auto) 0.3 Neut % (Auto) 72.2 Lymph % (Auto) 18.6 L [place] % (Auto) 6.5 Eos % (Auto) 2.0 Baso % (Auto) 0.4 Lymph # (Auto) 2.2 [place] # (Auto) 0.8 Eos # (Auto) 0.2 Baso # (Auto) 0.1 Abs Immat Gran (auto) 0.03 Absolute Neuts (auto) 8.4 H Absolute Nucleated RBC 0.000 Nucleated RBC % (auto) 0.0 PT 12.0 INR 1.0 APTT 27.8 Anion Gap 14 Estim Creat Clear Calc 71.7 Estimated GFR > 60 POC Glucose 135 H Random Glucose 99 Calcium 11.0 H Magnesium 1.9 Total Bilirubin 0.1 Direct Bilirubin < 0.2 AST 13 ALT 11 Alkaline Phosphatase 105 Troponin I High Sens 41.0 H D 74.1 H* D B-Natriuretic Peptide 14 Total Protein 7.6 Albumin 4.0 Urine Color Yellow Urine Appearance Clear Urine pH 5.5 Ur Specific [place] 1.025 Urine Protein 100 (2+) H Urine Glucose (UA) Negative Urine Ketones Trace Urine Blood Negative Urine Nitrite Negative Ur Leukocyte Esterase Negative Urine RBC 0-2 Urine WBC 0-5 Ur Squamous Epith Cells 6-10 Urine Bacteria 1+ Hyaline Casts 3-5 Urine Opiates Screen POSITIVE H Ur Buprenorphine Scrn Not Detected Ur Oxycodone Screen Positive H Urine Methadone Screen Not Detected Urine Fentanyl Screen Not Detected Ur Barbiturates Screen Not Detected Ur Phencyclidine Scrn Not Detected Ur Amphetamines Screen Not Detected U Benzodiazepines Scrn Not Detected Urine Cocaine Screen POSITIVE H U Marijuana (THC) Screen POSITIVE H Ethyl Alcohol < 10 Imaging Radiologist's Impressions: Impressions Chest X-Ray 09/22/23 18:05 IMPRESSION: No active cardiopulmonary disease. Assessment and Plan (1) Non-ST elevation [place] (NSTEMI): Status: Acute Plan This is a 57-year-old female with pertinent history of polysubstance use disorder, mood disorder, insulin-dependent diabetes mellitus, hypertension, mixed hyperlipidemia, gastroesophageal reflux disease who presents to the emergency department for evaluation of chest discomfort. #. NSTEMI: Will admit patient with cardiac monitoring. Initiated on IV heparin in the ER. Administered aspirin, high-intensity statin. Defer beta- robbie in the setting of cocaine use. Obtaining echo and cardiology consulted. #. Polysubstance use disorder: Monitor for withdrawal. Consulted Addiction Team #. Insulin-dependent diabetes mellitus: Initiating basal plus insulin regimen #. Hypertension: Continue home antihypertensives #. Gastroesophageal reflux disease: On PPI #. Mixed hyperlipidemia: On statin Med rec pending DVT prophylaxis: IV heparin Full code Admit as inpatient and will require two night minimum hospital stay for IV heparin (as above), which is not possible in a lesser acute setting. Specialist consult pending Quality Stroke Does the patient have a stroke diagnosis?: No VTE Prior VTE?: No VTE Risk Level:: Medical - moderate - high VTE Device Contraindication: Treatment Not Indicated VTE Drug Contraindication: N/A - Med Ordered
[2023-09-22] MEDS: Gabapentin 400 MG CAPSULE 800 MG PO (23:20)
[2023-09-22] MEDS: Atorvastatin Calcium 40 MG TABLET PO (23:20)
[2023-09-22] MEDS: Aspirin Enteric Coated 81 MG TABLET.DR PO (23:20)
[2023-09-22] MEDS: Heparin Sodium,Porcine/1/2NS 25,000 UNIT/250 ML IV.SOLN 8.93 UNIT IVCONT (23:25)
--- NOTE | 2023-09-22 23:30 | PC.NURSE ---
medication administered per provider order. heparin drip started per protocol at this time - running at 10mls/hr. pt seen by hospitalist aware of plan of care in regards to being admitted. respirations remain even/unlabored. call naylor placed within reach.
[2023-09-23] VITALS (9 sets, daily range): BP systolic 111–140; BP diastolic 54–68; PULSE 71–81; RESP 16–20; TEMP 36–36.6; O2SAT 96–98
--- NOTE | 2023-09-23 00:14 | PC.NURSE ---
medication administered per provider order. delay in medication administration d/t not being available in ED. nursing machinist supervisor notified/aware/will obtain. will administer medication when able.
[2023-09-23] MEDS: ARIPiprazole 15 MG TABLET PO ×2 (00:35→21:15)
[2023-09-23 02:22] LABS: Troponin-I High Sensitivity 244.2 ng/L (<3.5-17.0)
--- NOTE | 2023-09-23 02:36 | PC.NURSE ---
critical lab value - troponin received at this time. dr. peace notified/aware.
--- NOTE | 2023-09-23 03:33 | PC.NURSE ---
pt transported upstairs w/ this RN/plant maintenance techniciangrace Jaquez
--- NOTE | 2023-09-23 07:00 | CA_ITS ---
Transthoracic Echocardiogram Patient (Last, First, Middle): Jannet Alvarez, Gender: Female Date of : 1965 Age: 57 Procedure Date: 09/23/2023 Procedure Type: Transthoracic Echocardiogram [place] [facility] [place] Height: 157.48 cm Weight: 88.91 kg BSA: 1.90 m2 Heart Rate: bpm BP: 123 / 59 mmHg Roof Bolting Coal Miner: JAQUELINE Garibay MD: Cathie Hudson MD Bin Worker: Barrett Abarca MD Symptoms: NSTEMI Study Quality: Fair/Contrast ECG Rhythm: Sinus Conclusions: - 1. Low normal LV ejection fraction 50-55% with regional wall motion abnormality consistent with underlying coronary artery disease 2. Normal cardiac valvular Doppler 3. No gross pericardial effusion Findings Procedure Information Contrast agent, definity, is being given per protocol without apparent complications. Left Ventricle Normal left ventricular cavity size. There is normal left ventricular wall thickness. The left ventricular systolic function is low normal. The visually estimated ejection fraction is between 50-55%. Spectral Doppler is indicative of a normal filling pattern. Wall Motion Rest Echo Findings The inferolateral wall, the basal inferior, and basal inferoseptal segments are hypokinetic. All other scored wall segments showed normal motion. Right Ventricle Normal right ventricular cavity size and systolic function. Atria The left atrium is mildly dilated. There is no evidence of interatrial shunt. The right atrium is normal in size. Aortic Valve Normal aortic valve structure and function. There is no aortic valve stenosis. There is no aortic valve regurgitation. Mitral Valve Normal mitral valve structure and function. There is mild mitral annular calcification. There is trace mitral valve regurgitation. There is no mitral valve stenosis. Pulmonic Valve The pulmonic valve is likely normal. Tricuspid Valve Normal tricuspid valve structure. Tricuspid regurgitation envelope is inadequate for calculation of right ventricular systolic pressure. Normal right atrial pressure. There is no evidence of pulmonary hypertension. Great Vessels All visible segments of the aorta are normal in size. The pulmonary artery was not well visualized. There is no dilatation of the ascending aorta measuring 3.10 cm. Venous The inferior vena cava is normal in size and collapses greater than 50% with inspiration. Pericardium/Pleural There is no evidence of pericardial effusion. Prior Study Comparison No prior study available for comparison. Measurements 2D Linear Measurements IVSd: 1.15 0.6-0.9/0.6-1.0 cm LVIDd: 5.03 3.9-5.3/4.2-5.9 cm LVIDd Index: 2.65 2.4-3.2/2.2-3.1 cm/m2 LVIDs: 3.74 2.0-3.6 cm LVPWd: 1.14 0.7-1.1 cm Ao Root: 3.70 2.1-3.5 cm LA Diam: 3.40 2.7-3.8/3.0-4.0 cm LAIDs Index: 1.79 1.5-2.3 cm/m2 LV Mass: 275.56 67-162/88-224 g LV Mass Index: 145.03 43-95/49-115 g/m2 LVOT Diam: 2.50 3.0+(-)1.3 cm 2D Systolic Function EF 4C: 43.10 >55% EF 2C: 54.70 >55% EF BiP: 50.40 >55% Mitral Valve MV Pk E: 0.64 MV PK A: 0.55 MV Decel Time: 241.00 E/A: 1.20 E'Lateral: 6.53 E'Medial: 6.31 E/E' Med: 10.10 E/E' Lat: 9.80 PHT: 71.00 MVA PHT: 3.10 Decel Edgar: 2.65 Aortic Valve AoV Pk Aj: 1.65 AoV Mn Aj: 1.14 AoV VTI: 0.32 AoV Pk Grad: 11.00 Aov Mn Grad: 6.00 PHILIP Cont.VTI: 2.22 LVOT LVOT Pk Aj: 0.74 LVOT Mn Aj: 0.52 LVOT VTI: 0.15 LVOT Pk Grad: 2.00 LVOT Mn Grad: 1.00 LVOT Diam: 2.50 LVOT Area: 4.91 Diastolic Function MV Pk E: 0.64 MV Pk A: 0.55 E/A: 1.20 E'Medial: 6.31 E/E' Med: 10.10 E' Laterial: 6.53 E/E' Lat: 9.80 Right Ventricle TAPSE (mm): 28.00 TVS' Aj: 14.30 Tricuspid Valve RA Press: 3.00 Great Vessels Aorta Ao Root-2D: 3.70 2.0-3.7 cm Ao Asc: 3.10 2.1-3.4 cm Updated in Other Vendor System with Status of Final Barrett Abarca MD electronically signed on 09/23/2023 12:49:58 PM with status of Final
[2023-09-23 07:31] LABS: MANUAL DIFF FLAG NO
[2023-09-23 07:34] LABS: Hematocrit 41.5 % (37.0-47.0); Hemoglobin 13.9 g/dl (12.0-16.0); Mean Corpuscular HGB Conc 33.5 g/dl (31.0-35.0); Mean Corpuscular Hemoglobin 31.8 pg (27.0-33.0); Mean Platelet Volume 11.5 fL (9.4-12.3); Platelet Count 166 X10*3/uL (160-400); Red Blood Count 4.37 X10*6/uL (4.20-5.50); Red Cell Distribution Width 12.7 % (11.0-16.0); White Blood Count 11.4 X10*3/uL (4.8-10.8)
[2023-09-23 07:35] LABS: Basophils Absolute Auto 0.1 X10*3/uL (0.0-0.2); Basophils Percent Auto 0.4 % (0-2); Eosinophils Absolute Auto 0.6 X10*3/uL (0.0-0.4); Eosinophils Percent Auto 5.3 % (0-4); Hematocrit 41.7 % (37.0-47.0); Hemoglobin 13.9 g/dl (12.0-16.0); Imm Gran Abs Auto 0.05 X10*3/uL (0.00-0.03); Imm Gran Pct Auto 0.4 % (0.0-0.4); Lymphocytes Absolute Auto 3.9 X10*3/uL (1.2-4.9); Lymphocytes Percent Auto 34.2 % (20-40); Mean Corpuscular HGB Conc 33.3 g/dl (31.0-35.0); Mean Corpuscular Hemoglobin 31.7 pg (27.0-33.0); Mean Corpuscular Volume 95.2 fL (80.0-98.0); Mean Platelet Volume 11.4 fL (9.4-12.3); Monocytes Absolute Auto 0.7 X10*3/uL (0.1-1.2); Monocytes Percent Auto 6.3 % (2-11); Neutrophils Percent Auto 53.4 % (45-73); Platelet Count 164 X10*3/uL (160-400); Red Blood Count 4.38 X10*6/uL (4.20-5.50); Red Cell Distribution Width 12.6 % (11.0-16.0); White Blood Count 11.3 X10*3/uL (4.8-10.8)
[2023-09-23 07:39] LABS: Glucose, Whole Blood 190 mg/dL (60-115)
[2023-09-23 07:41] LABS: PTT Heparin Drip 39.6 SEC (53-77.9)
[2023-09-23 07:48] LABS: Anion Gap 9 (12-20); Blood Urea Nitrogen 19 mg/dL (9-16); Calcium 10.1 mg/dL (8.4-10.2); Carbon Dioxide 25 mmol/L (22-29); Chloride 110 mmol/L (96-108); Creatinine Clr Calc Pharmacy 68.4; Estimated Glomerular Filt Rate > 60; Glucose Random 201 mg/dL (60-115); Sodium 140 mmol/L (135-145)
[2023-09-23 08:16] LABS: Estimated Average Glucose 209 mg/dL; Hemoglobin A1c % 8.9 % (<6.0)
--- NOTE | 2023-09-23 09:14 | MHC.CM.PN ---
CM met with Patient at bedside with initial permission to speak to her while Patient was getting an IV. Patient then requested that CM speak with family; CM spoke with Daughter/DUCT INSTALLER/Naomi at [phone] and addressed IMM with her (original will be mailed certified letter to Naomi and a copy has been placed on the chart). Patient lives in a townhouse with her Daughter/[employer] DUCT INSTALLER/Naomi and she just started using a cane at times to assist with mobility. Home/resume DUCT INSTALLER services is the goal and CM has initiated and will follow for dc planning. PCP is Dr. Maame Barber.
[2023-09-23 09:17] LABS: HBc Num1 0.19 S/CO (0.00-0.79); HBsAGNum1 0.27 S/CO (0.00-0.99); Hepatitis B Core Antibody Nonreactive (Nonreactive); Hepatitis B Surface Antigen Negative (Negative)
[2023-09-23] MEDS: Heparin Sodium,Porcine 5,000 UNIT/ML VIAL 3600 UNIT IVPUSH (09:22)
[2023-09-23] MEDS: Insulin Lispro 100 UNIT/ML 3 ML VIAL SUBCUT ×4 (09:23→21:16)
[2023-09-23] MEDS: 0.9 % Sodium Chloride Flush 3 ML SYRINGE IVFLUSH ×2 (09:25→21:17)
[2023-09-23] MEDS: Aspirin 81 MG TAB.CHEW PO (09:28)
[2023-09-23 09:30] LABS: HBS Num1 0.11 mIU/mL (0-7.99); HIV AB/AG Nonreactive (Nonreactive); HIV Num 1 0.05 S/CO (0.00-0.99); ~HepC Num1 0.18 S/CO (0.00-0.79); ~Hepatitis B Surface Antibody NONREACTIVE (Nonreactive); ~Hepatitis C Antibody Nonreactive (Nonreactive)
--- NOTE | 2023-09-23 10:15 | MHC.CM.PN ---
CM was informed by CAR SALES CONSULTANT that Patient would like to complete a HCP. CM met with Patient and her Daughter/Naomi at bedside;they asked to hold off on completing the HCP because there is a SON who is unaware of Patient's situation and Patient DOES want son to be able to receive information. CM will continue to follow.
[2023-09-23 10:34] LABS: PTT Heparin Drip 133.2 SEC (53-77.9)
[2023-09-23 10:51] LABS: Glucose, Whole Blood 251 mg/dL (60-115)
--- NOTE | 2023-09-23 11:29 | PHA.MEDREC ---
Pharmacy Consult ? Medication Reconciliation Pharmacy has completed the medication reconciliation. spoke with Naomi and patient. Patient reported she does not take her meds as she is supposed to and takes all of them as needed. She confirmed her Tresiba as 88 units at bedtime, Novolog 32-38 units depending on what she eats. Patient reported she still takes omeprazole and she did not know dose, her last fill was in December 2022 for a 14 day supply, 40mg. She said she still takes abilify 20mg BID however hayley said her last upper lining cementer was a 90 DS in October 2022 as 15mg daily, however she does have a prescription for 20mg daily waiting to be picked up at the pharmacy. She said her gabapentin is TID however her prescription is written for once daily.
--- NOTE | 2023-09-23 11:32 | P.CONCA_ITS ---
History of Present Illness History of Present Illness Date of Service: 09/23/23 Requesting physician: Cara Diallo Consult reason: myocardial infarction Chief complaint: chest Narrative: I was consulted to see iris in cardiology consultation today for NSTEMI. He is prior history of bipolar disorder diabetes currently not taking any medications, hypertension, hyperlipidemia, gastroesophageal reflux disease. Patient also has intermittent use of drugs including cocaine which she says she only uses occasionally. She said she use that about a week ago prior to presentation. She then came to the hospital because she developed sudden-onset severe midsternal chest discomfort started at 04:00 o'clock on day of presentation. The chest pain lasted till she came to the emergency room. She was associated with shortness of breath. No nausea, vomiting, diaphoresis. She was then given treatment for it with nitroglycerin as well as oxygen. Symptoms then subsequently resolved. Her initial troponin was within normal limits and subsequent troponin was elevated. Call was placed to me and we decided to admit her with IV heparin drip. Subsequently had troponins have been rising the latest troponin up to 600 range. However she is chest pain-free. She said she had similar episode 3 weeks ago. She said she is done with using drugs anymore. She is very emotional about it. She denies any exertional chest pain. Her U tox was positive for opiates, cocaine, marijuana and oxycodone. On admission a blood pressure is elevated now is better controlled. She is getting IV heparin drip. Review of Systems 2 Constitutional: Constitutional: Reports no additional constitutional complaints Eyes: Eyes: Reports no additional eye complaints Cardiovascular: Cardiovascular: Reports chest pain at rest, Denies leg edema, Denies lightheadedness, Denies Loss of Consciousness, Denies palpitations and Reports dyspnea Respiratory: Respiratory: Reports no additional respiratory complaints and Reports dyspnea Gastrointestinal: Gastrointestinal: Reports no additional gastrointestinal complaints Genitourinary: Genitourinary: Reports no additional female genitourinary complaints Musculoskeletal: Musculoskeletal: Reports no additional musculoskeletal complaints Integumentary/Breasts: Skin/Breast: Reports system reviewed and no additional complaints, except as docu Neurologic: Reports system reviewed and no additional complaints, except as documented Endocrine: Endocrine: Denies palpitations PMFSH Past Medical History Medical History Patellofemoral syndrome Tear of meniscus of right knee COVID-19 Tear of meniscus of right knee as current injury 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 DM2 (diabetes mellitus, type 2) Depressed Anxiety Bipolar 1 disorder Diabetes 1.5, managed as type 1 Surgical History Surgical History H/O adenoidectomy History of tubal ligation History of cholecystectomy History of partial hysterectomy History of dental surgery Social History Social History Household Members: Children Household Members Other:: daughter Housing: Apartment Do you presently have visiting nurse or other home services: No Alcohol intake: current Alcohol intake frequency: holidays/special occasions only Alcohol type: wine Patient Tobacco Use Status: Current everyday Tobacco user Tobacco use type: Cigarette Cigarettes Per Day: 20 e-Cigarette/Vaping Use: Never Used Second Hand Smoke Exposure: Yes Substance Use Type: Marijuana service: No Current occupational status: disabled Meds Allergies Allergy/AdvReac Type Severity Reaction Status Date / Time penicillin V Allergy Unknown Hives Verified 09/22/23 18:32 Penicillins Allergy Unknown HIVES Verified 09/22/23 18:32 Active Medications: Current Medications Acetaminophen (Acetaminophen 325 Mg Tablet) 650 mg PO Q6H PRN PRN Reason: Pain, Mild (Pain Scale 1-3) Amlodipine Besylate (Amlodipine Besylate 2.5 Mg Tablet) 2.5 mg PO DAILY JANINE; Protocol Aripiprazole (Aripiprazole 15 Mg Tablet) 15 mg PO BEDTIME JANINE Last Admin: 09/23/23 00:35 Dose: 15 mg Aspirin (Aspirin 81 Mg Tab.Chew) 81 mg PO DAILY JANINE Last Admin: 09/23/23 09:28 Dose: 81 mg Atorvastatin Calcium (Atorvastatin Calcium 80 Mg Tablet) 80 mg PO BEDTIME [facility] Clopidogrel Bisulfate (Clopidogrel Bisulfate 75 Mg Tablet) 75 mg PO DAILY [facility] Glucose (Glucose Gel 15 Gm Gel..Gram.) 15 gm PO Q15M PRN; Protocol PRN Reason: per Hypoglycemia Standing Ord. Heparin Sodium (Porcine) (Heparin Sodium,Porcine 5,000 Unit/Ml Vial) 3,600 unit 40 unit/kg (3600 unit) IVPUSH PROTOCOL BOLUS PRN; Protocol PRN Reason: 40 unit/kg - Heparin Protocol Last Admin: 09/23/23 09:22 Dose: 3,600 unit Heparin Sodium (Porcine) (Heparin Sodium,Porcine 5,000 Unit/Ml Vial) 7,100 unit 80 unit/kg (7100 unit) IVPUSH PROTOCOL BOLUS PRN; Protocol PRN Reason: 80 unit/kg - Heparin Protocol Heparin Sodium/Sodium Chloride (Heparin Sodium,Porcine/1/2ns) 25,000 unit in 250 mls @ 0 mls/hr IVCONT .Q0M JANINE; Protocol Last Titration: 09/23/23 09:19 Dose: 12 units/kg/hr, 10.72 mls/hr Dextrose (D10) 250 mls @ 750 mls/hr IV Q15M PRN; Protocol PRN Reason: per Hypoglycemia Standing Ord. Insulin Glargine (Insulin Glargine,Hum.Rec.Anlog 100 Unit/Ml 10 Ml Vial) 70 unit SUBCUT BEDTIME [facility] Last Admin: 09/23/23 00:00 Dose: 70 unit Insulin Human Lispro (Insulin Lispro 100 Unit/Ml 3 Ml Vial) 0 unit SUBCUT QIDACHS [facility]; Protocol Last Admin: 09/23/23 09:23 Dose: 2 unit Lidocaine (Lidocaine 4 % Patch Adh..Patch) 1 patch TRANSDERMA DAILY [facility]; Protocol Melatonin (Melatonin 3 Mg Tablet) 6 mg PO BEDTIME PRN PRN Reason: Insomnia Morphine Sulfate (Morphine Sulfate 2 Mg/Ml Cartridge) 2 mg IVPUSH Q4H PRN; Protocol PRN Reason: severe pain Ondansetron HCl (Ondansetron Hcl 4 Mg/2 Ml Vial) 4 mg IVPUSH Q8H PRN PRN Reason: Nausea and Vomiting Sodium Chloride (0.9 % Sodium Chloride Flush 3 Ml Syringe) [facility] Last Admin: 09/23/23 09:25 Dose: 3 ml Home Medications ?Medication ?Instructions ?Recorded ?Confirmed ?Last Taken ?Type gabapentin 800 mg tablet 800 mg PO TID PRN Pain 07/07/23 09/23/23 Unknown History rosuvastatin 20 mg tablet 20 mg PO BEDTIME 07/07/23 09/23/23 Unknown History amlodipine 5 mg tablet 5 mg PO DAILY 09/23/23 09/23/23 Unknown History aripiprazole 15 mg tablet 15 mg PO DAILY 09/23/23 09/23/23 Unknown History celecoxib 200 mg capsule 200 mg PO BID PRN Pain 09/23/23 09/23/23 Unknown History diclofenac sodium 1 % topical gel 4 g topical QID PRN Pain 09/23/23 09/23/23 Unknown History insulin aspart U-100 100 unit/mL 32 - 38 unit subcut TIDWM 09/23/23 09/23/23 Unknown History (3 mL) subcutaneous pen (Novolog FlexPen U-100 Insulin aspart) insulin degludec 200 unit/mL (3 88 unit subcut BEDTIME 09/23/23 09/23/23 Unknown History mL) subcutaneous pen (Tresiba FlexTouch U-200 insulin) omeprazole 40 mg capsule,delayed 40 mg PO DAILY PRN Acid Reflux 09/23/23 09/23/23 Unknown History release Physical Exam 2 Vital Signs: Vital Signs: Last Vital Signs Temp 97.6 F 09/23/23 11:17 Pulse 81 09/23/23 11:17 Resp 20 09/23/23 11:17 BP 114/55 L 09/23/23 11:17 Pulse Ox 97 09/23/23 11:17 O2 Del Method Room Air 09/23/23 11:17 BMI result Body Mass Index 36.0 Const: General: cooperative, comfortable, no acute distress, alert, awake and Physically active Nutritional Appearance: obese Orientation/consciousness: patient oriented x3 Limitations: no limitations HEENT: Head: Yes normocephalic and Yes atraumatic Neck: Neck: Yes trachea midline, Yes supple and Yes no JVD Resp: Effort & Inspection: normal respiratory effort Auscultation: clear to auscultation bilaterally Cardio: Jugular venous distension: no JVD Palpation: normal PMI Rate: r egular rate Rhythm: regular rhythm Heart sounds: S1 normal heart sound present, S2 normal heart sound present, no click, no gallops, no murmurs and no rubs GI: Auscultation: normal bowel sounds Skin: General skin exam: no rashes or lesions noted Neuro: General: patient oriented x3 and no focal motor deficits Extrem: General: Yes no clubbing, cyanosis or edema Psych: Affect: Depressed mood present Objective Labs and Meds 09/23/23 07:23 09/23/23 07:22 Lab results: Laboratory Results - last 24 hr 09/22/23 09/22/23 09/22/23 18:06 18:52 20:54 WBC 11.6 H RBC 4.47 Hgb 14.3 Hct 42.5 MCV 95.1 MCH 32.0 MCHC 33.6 RDW 12.5 Plt Count 186 MPV 11.4 Immature Gran % (Auto) 0.3 Neut % (Auto) 72.2 Lymph % (Auto) 18.6 L Shannon % (Auto) 6.5 Eos % (Auto) 2.0 Baso % (Auto) 0.4 Lymph # (Auto) 2.2 Shannon # (Auto) 0.8 Eos # (Auto) 0.2 Baso # (Auto) 0.1 Abs Immat Gran (auto) 0.03 Absolute Neuts (auto) 8.4 H Absolute Nucleated RBC 0.000 Nucleated RBC % (auto) 0.0 PT 12.0 INR 1.0 APTT 27.8 aPTT Heparin Protocol Sodium 141 Potassium 3.9 Chloride 108 Carbon Dioxide 23 Anion Gap 14 BUN 22 H Creatinine 0.90 Estim Creat Clear Calc 71.7 Estimated GFR > 60 POC Glucose 135 H Random Glucose 99 Estimat Average Glucose Hemoglobin A1c % Calcium 11.0 H Magnesium 1.9 Total Bilirubin 0.1 Direct Bilirubin < 0.2 AST 13 ALT 11 Alkaline Phosphatase 105 Troponin I High Sens 41.0 H D 74.1 H* D B-Natriuretic Peptide 14 Total Protein 7.6 Albumin 4.0 Urine Color Yellow Urine Appearance Clear Urine pH 5.5 Ur Specific Lexa 1.025 Urine Protein 100 (2+) H Urine Glucose (UA) Negative Urine Ketones Trace Urine Blood Negative Urine Nitrite Negative Ur Leukocyte Esterase Negative Urine RBC 0-2 Urine WBC 0-5 Ur Squamous Epith Cells 6-10 Urine Bacteria 1+ Hyaline Casts 3-5 Urine Opiates Screen POSITIVE H Ur Buprenorphine Scrn Not Detected Ur Oxycodone Screen Positive H Urine Methadone Screen Not Detected Urine Fentanyl Screen Not Detected Ur Barbiturates Screen Not Detected Ur Phencyclidine Scrn Not Detected Ur Amphetamines Screen Not Detected U Benzodiazepines Scrn Not Detected Urine Cocaine Screen POSITIVE H U Marijuana (THC) Screen POSITIVE H Ethyl Alcohol < 10 Hep Bs Antigen Hep Bs Antibody Hep B Core Total Ab Hepatitis C Ab (EIA) HIV 1&2 Ab/P24 Ag 4thGn 09/23/23 09/23/23 09/23/23 01:47 07:22 07:23 WBC 11.3 H 11.4 H RBC 4.38 4.37 Hgb 13.9 13.9 Hct 41.7 41.5 MCV 95.2 95.0 MCH 31.7 31.8 MCHC 33.3 33.5 RDW 12.6 12.7 Plt Count 164 166 MPV 11.4 11.5 Immature Gran % (Auto) 0.4 Neut % (Auto) 53.4 Lymph % (Auto) 34.2 Shannon % (Auto) 6.3 Eos % (Auto) 5.3 H Baso % (Auto) 0.4 Lymph # (Auto) 3.9 Shannon # (Auto) 0.7 Eos # (Auto) 0.6 H Baso # (Auto) 0.1 Abs Immat Gran (auto) 0.05 H Absolute Neuts (auto) 6.0 Absolute Nucleated RBC 0.000 0.000 Nucleated RBC % (auto) 0.0 0.0 PT 12.0 INR 1.0 APTT aPTT Heparin Protocol 39.6 L Sodium 140 Potassium 4.0 Chloride 110 H Carbon Dioxide 25 Anion Gap 9 L BUN 19 H Creatinine 0.93 Estim Creat Clear Calc 68.4 Estimated GFR > 60 POC Glucose Random Glucose 201 H Estimat Average Glucose 209 Hemoglobin A1c % 8.9 H Calcium 10.1 D Magnesium Total Bilirubin Direct Bilirubin AST ALT Alkaline Phosphatase Troponin I High Sens 244.2 H* D B-Natriuretic Peptide Total Protein Albumin Urine Color Urine Appearance Urine pH Ur Specific Lexa Urine Protein Urine Glucose (UA) Urine Ketones Urine Blood Urine Nitrite Ur Leukocyte Esterase Urine RBC Urine WBC Ur Squamous Epith Cells Urine Bacteria Hyaline Casts Urine Opiates Screen Ur Buprenorphine Scrn Ur Oxycodone Screen Urine Methadone Screen Urine Fentanyl Screen Ur Barbiturates Screen Ur Phencyclidine Scrn Ur Amphetamines Screen U Benzodiazepines Scrn Urine Cocaine Screen U Marijuana (THC) Screen Ethyl Alcohol Hep Bs Antigen Hep Bs Antibody Hep B Core Total Ab Hepatitis C Ab (EIA) HIV 1&2 Ab/P24 Ag 4thGn 09/23/23 09/23/23 09/23/23 07:31 08:32 09:33 WBC RBC Hgb Hct MCV MCH MCHC RDW Plt Count MPV Immature Gran % (Auto) Neut % (Auto) Lymph % (Auto) Shannon % (Auto) Eos % (Auto) Baso % (Auto) Lymph # (Auto) Shannon # (Auto) Eos # (Auto) Baso # (Auto) Abs Immat Gran (auto) Absolute Neuts (auto) Absolute Nucleated RBC Nucleated RBC % (auto) PT INR APTT aPTT Heparin Protocol 133.2 H* D Sodium Potassium Chloride Carbon Dioxide Anion Gap BUN Creatinine Estim Creat Clear Calc Estimated GFR POC Glucose 190 H Random Glucose Estimat Average Glucose Hemoglobin A1c % Calcium Magnesium Total Bilirubin Direct Bilirubin AST ALT Alkaline Phosphatase Troponin I High Sens 647.0 H* D B-Natriuretic Peptide Total Protein Albumin Urine Color Urine Appearance Urine pH Ur Specific Lexa Urine Protein Urine Glucose (UA) Urine Ketones Urine Blood Urine Nitrite Ur Leukocyte Esterase Urine RBC Urine WBC Ur Squamous Epith Cells Urine Bacteria Hyaline Casts Urine Opiates Screen Ur Buprenorphine Scrn Ur Oxycodone Screen Urine Methadone Screen Urine Fentanyl Screen Ur Barbiturates Screen Ur Phencyclidine Scrn Ur Amphetamines Screen U Benzodiazepines Scrn Urine Cocaine Screen U Marijuana (THC) Screen Ethyl Alcohol Hep Bs Antigen Negative Hep Bs Antibody NONREACTIVE Hep B Core Total Ab Nonreactive Hepatitis C Ab (EIA) Nonreactive HIV 1&2 Ab/P24 Ag 4thGn Nonreactive 09/23/23 10:47 WBC RBC Hgb Hct MCV MCH MCHC RDW Plt Count MPV Immature Gran % (Auto) Neut % (Auto) Lymph % (Auto) Shannon % (Auto) Eos % (Auto) Baso % (Auto) Lymph # (Auto) Shannon # (Auto) Eos # (Auto) Baso # (Auto) Abs Immat Gran (auto) Absolute Neuts (auto) Absolute Nucleated RBC Nucleated RBC % (auto) PT INR APTT aPTT Heparin Protocol Sodium Potassium Chloride Carbon Dioxide Anion Gap BUN Creatinine Estim Creat Clear Calc Estimated GFR POC Glucose 251 H Random Glucose Estimat Average Glucose Hemoglobin A1c % Calcium Magnesium Total Bilirubin Direct Bilirubin AST ALT Alkaline Phosphatase Troponin I High Sens B-Natriuretic Peptide Total Protein Albumin Urine Color Urine Appearance Urine pH Ur Specific Lexa Urine Protein Urine Glucose (UA) Urine Ketones Urine Blood Urine Nitrite Ur Leukocyte Esterase Urine RBC Urine WBC Ur Squamous Epith Cells Urine Bacteria Hyaline Casts Urine Opiates Screen Ur Buprenorphine Scrn Ur Oxycodone Screen Urine Methadone Screen Urine Fentanyl Screen Ur Barbiturates Screen Ur Phencyclidine Scrn Ur Amphetamines Screen U Benzodiazepines Scrn Urine Cocaine Screen U Marijuana (THC) Screen Ethyl Alcohol Hep Bs Antigen Hep Bs Antibody Hep B Core Total Ab Hepatitis C Ab (EIA) HIV 1&2 Ab/P24 Ag 4thGn EKG on presentation shows normal sinus rhythm with normal EKG Imaging Radiologist's impression: Impressions Chest X-Ray 09/22/23 18:05 IMPRESSION: No active cardiopulmonary disease. Assessment and Plan (1) Non-ST elevation VT (NSTEMI): Status: Acute Non ST-elevation myocardial infarction in this middle-aged woman related to cocaine use mechanism could be coronary vaso spasm and/or plaque rupture. She is currently chest pain-free. At this point time will continue with IV heparin for total of 72 hours. Continue aspirin. High-intensity statin therapy with atorvastatin 80 mg. Will also load her with Plavix and put her on 75 mg daily. Strongly discussed with her about avoiding drug use and smoking. She says she is done with drug use. A blood pressure is stable. Would avoid using metoprolol at this point in time and start her on Norvasc 2.5 mg daily. I would review the echocardiogram that is being performed later today. Will require inpatient myocardial perfusion imaging to rule out residual ischemia that may require invasive approach. This was discussed with her in presence of her daughter. She understands agrees. Will follow with you Procedures Date of Service Date of Service: 09/23/23
--- NOTE | 2023-09-23 11:36 | P.PNIM_ITS ---
Subjective Subjective Date of Service: 09/23/23 Interval History: This history was taken in Japanese from the patient. Denies chest pain. Endorses L knee pain. Used cocaine 7 d ago. Review of Systems Review of Systems: Yes all other systems are reviewed and are negative Physical Exam 2 Vital Signs: Vital Signs: Last Vital Signs Temp 97.6 F 09/23/23 11:17 Pulse 81 09/23/23 11:17 Resp 20 09/23/23 11:17 BP 114/55 L 09/23/23 11:17 Pulse Ox 97 09/23/23 11:17 O2 Del Method Room Air 09/23/23 11:17 BMI result Body Mass Index 36.0 Gen: in no acute distress HEENT: sclera anicteric, moist mucus membranes Neck: supple Lungs: clear to auscultation bilaterally Heart: regular rate and rhythm, no murmurs Abd: soft, non-tender, non-distended Ext: no edema, L knee tender with limited ROM but no redness/warmth and minimal swelling Skin: warm/well-perfused Neuro: alert and oriented x3, no focal findings Psych: appropriate affect Objective Data Active Medications Acetaminophen (Acetaminophen 325 Mg Tablet) 650 mg PO Q6H PRN PRN Reason: Pain, Mild (Pain Scale 1-3) Amlodipine Besylate (Amlodipine Besylate 2.5 Mg Tablet) 2.5 mg PO DAILY [facility]; Protocol Aripiprazole (Aripiprazole 15 Mg Tablet) 15 mg PO BEDTIME [facility] Last Admin: 09/23/23 00:35 Dose: 15 mg Documented By: LASHAWN Aspirin (Aspirin 81 Mg Tab.Chew) 81 mg PO DAILY [facility] Last Admin: 09/23/23 09:28 Dose: 81 mg Documented By: ABRAN Atorvastatin Calcium (Atorvastatin Calcium 80 Mg Tablet) 80 mg PO BEDTIME [facility] Clopidogrel Bisulfate (Clopidogrel Bisulfate 75 Mg Tablet) 75 mg PO DAILY [facility] Glucose (Glucose Gel 15 Gm Gel..Gram.) 15 gm PO Q15M PRN; Protocol PRN Reason: per Hypoglycemia Standing Ord. Heparin Sodium (Porcine) (Heparin Sodium,Porcine 5,000 Unit/Ml Vial) 3,600 unit 40 unit/kg (3600 unit) IVPUSH PROTOCOL BOLUS PRN; Protocol PRN Reason: 40 unit/kg - Heparin Protocol Last Admin: 09/23/23 09:22 Dose: 3,600 unit Documented By: ABRAN Heparin Sodium (Porcine) (Heparin Sodium,Porcine 5,000 Unit/Ml Vial) 7,100 unit 80 unit/kg (7100 unit) IVPUSH PROTOCOL BOLUS PRN; Protocol PRN Reason: 80 unit/kg - Heparin Protocol Heparin Sodium/Sodium Chloride (Heparin Sodium,Porcine/1/2ns) 25,000 unit in 250 mls @ 0 mls/hr IVCONT .Q0M [facility]; Protocol Last Titration: 09/23/23 09:19 Dose: 12 units/kg/hr, 10.72 mls/hr Documented By: ABRAN Co-signed By: TRENA Dextrose (D10) 250 mls @ 750 mls/hr IV Q15M PRN; Protocol PRN Reason: per Hypoglycemia Standing Ord. Insulin Glargine (Insulin Glargine,Hum.Rec.Anlog 100 Unit/Ml 10 Ml Vial) 70 unit SUBCUT BEDTIME [facility] Last Admin: 09/23/23 00:00 Dose: 70 unit Documented By: LASHAWN Insulin Human Lispro (Insulin Lispro 100 Unit/Ml 3 Ml Vial) 0 unit SUBCUT QIDACHS [facility]; Protocol Last Admin: 09/23/23 09:23 Dose: 2 unit Documented By: ABRAN Lidocaine (Lidocaine 4 % Patch Adh..Patch) 1 patch TRANSDERMA DAILY [facility]; Protocol Melatonin (Melatonin 3 Mg Tablet) 6 mg PO BEDTIME PRN PRN Reason: Insomnia Morphine Sulfate (Morphine Sulfate 2 Mg/Ml Cartridge) 2 mg IVPUSH Q4H PRN; Protocol PRN Reason: severe pain Ondansetron HCl (Ondansetron Hcl 4 Mg/2 Ml Vial) 4 mg IVPUSH Q8H PRN PRN Reason: Nausea and Vomiting Sodium Chloride (0.9 % Sodium Chloride Flush 3 Ml Syringe) 3 [facility] Last Admin: 09/23/23 09:25 Dose: 3 ml Documented By: ABRAN Labs 09/23/23 07:23 09/23/23 07:22 Labs: Laboratory Results - last 24 hr 09/22/23 09/22/23 09/22/23 18:06 18:52 20:54 MCV 95.1 MCH 32.0 MCHC 33.6 RDW 12.5 Plt Count 186 MPV 11.4 Immature Gran % (Auto) 0.3 Neut % (Auto) 72.2 Lymph % (Auto) 18.6 L Gates % (Auto) 6.5 Eos % (Auto) 2.0 Baso % (Auto) 0.4 Lymph # (Auto) 2.2 Gates # (Auto) 0.8 Eos # (Auto) 0.2 Baso # (Auto) 0.1 Abs Immat Gran (auto) 0.03 Absolute Neuts (auto) 8.4 H Absolute Nucleated RBC 0.000 Nucleated RBC % (auto) 0.0 PT 12.0 INR 1.0 APTT 27.8 aPTT Heparin Protocol Anion Gap 14 Estim Creat Clear Calc 71.7 Estimated GFR > 60 POC Glucose 135 H Random Glucose 99 Estimat Average Glucose Hemoglobin A1c % Calcium 11.0 H Magnesium 1.9 Total Bilirubin 0.1 Direct Bilirubin < 0.2 AST 13 ALT 11 Alkaline Phosphatase 105 Troponin I High Sens 41.0 H D 74.1 H* D B-Natriuretic Peptide 14 Total Protein 7.6 Albumin 4.0 Urine Color Yellow Urine Appearance Clear Urine pH 5.5 Ur Specific [place] 1.025 Urine Protein 100 (2+) H Urine Glucose (UA) Negative Urine Ketones Trace Urine Blood Negative Urine Nitrite Negative Ur Leukocyte Esterase Negative Urine RBC 0-2 Urine WBC 0-5 Ur Squamous Epith Cells 6-10 Urine Bacteria 1+ Hyaline Casts 3-5 Urine Opiates Screen POSITIVE H Ur Buprenorphine Scrn Not Detected Ur Oxycodone Screen Positive H Urine Methadone Screen Not Detected Urine Fentanyl Screen Not Detected Ur Barbiturates Screen Not Detected Ur Phencyclidine Scrn Not Detected Ur Amphetamines Screen Not Detected U Benzodiazepines Scrn Not Detected Urine Cocaine Screen POSITIVE H U Marijuana (THC) Screen POSITIVE H Ethyl Alcohol < 10 Hep Bs Antigen Hep Bs Antibody Hep B Core Total Ab Hepatitis C Ab (EIA) HIV 1&2 Ab/P24 Ag 4thGn 09/23/23 09/23/23 09/23/23 01:47 07:22 07:23 MCV 95.2 95.0 MCH 31.7 31.8 MCHC 33.3 33.5 RDW 12.6 12.7 Plt Count 164 166 MPV 11.4 11.5 Immature Gran % (Auto) 0.4 Neut % (Auto) 53.4 Lymph % (Auto) 34.2 Gates % (Auto) 6.3 Eos % (Auto) 5.3 H Baso % (Auto) 0.4 Lymph # (Auto) 3.9 Gates # (Auto) 0.7 Eos # (Auto) 0.6 H Baso # (Auto) 0.1 Abs Immat Gran (auto) 0.05 H Absolute Neuts (auto) 6.0 Absolute Nucleated RBC 0.000 0.000 Nucleated RBC % (auto) 0.0 0.0 PT 12.0 INR 1.0 APTT aPTT Heparin Protocol 39.6 L Anion Gap 9 L Estim Creat Clear Calc 68.4 Estimated GFR > 60 POC Glucose Random Glucose 201 H Estimat Average Glucose 209 Hemoglobin A1c % 8.9 H Calcium 10.1 D Magnesium Total Bilirubin Direct Bilirubin AST ALT Alkaline Phosphatase Troponin I High Sens 244.2 H* D B-Natriuretic Peptide Total Protein Albumin Urine Color Urine Appearance Urine pH Ur Specific [place] Urine Protein Urine Glucose (UA) Urine Ketones Urine Blood Urine Nitrite Ur Leukocyte Esterase Urine RBC Urine WBC Ur Squamous Epith Cells Urine Bacteria Hyaline Casts Urine Opiates Screen Ur Buprenorphine Scrn Ur Oxycodone Screen Urine Methadone Screen Urine Fentanyl Screen Ur Barbiturates Screen Ur Phencyclidine Scrn Ur Amphetamines Screen U Benzodiazepines Scrn Urine Cocaine Screen U Marijuana (THC) Screen Ethyl Alcohol Hep Bs Antigen Hep Bs Antibody Hep B Core Total Ab Hepatitis C Ab (EIA) HIV 1&2 Ab/P24 Ag 4thGn 09/23/23 09/23/23 09/23/23 07:31 08:32 09:33 MCV MCH MCHC RDW Plt Count MPV Immature Gran % (Auto) Neut % (Auto) Lymph % (Auto) Gates % (Auto) Eos % (Auto) Baso % (Auto) Lymph # (Auto) Gates # (Auto) Eos # (Auto) Baso # (Auto) Abs Immat Gran (auto) Absolute Neuts (auto) Absolute Nucleated RBC Nucleated RBC % (auto) PT INR APTT aPTT Heparin Protocol 133.2 H* D Anion Gap Estim Creat Clear Calc Estimated GFR POC Glucose 190 H Random Glucose Estimat Average Glucose Hemoglobin A1c % Calcium Magnesium Total Bilirubin Direct Bilirubin AST ALT Alkaline Phosphatase Troponin I High Sens 647.0 H* D B-Natriuretic Peptide Total Protein Albumin Urine Color Urine Appearance Urine pH Ur Specific [place] Urine Protein Urine Glucose (UA) Urine Ketones Urine Blood Urine Nitrite Ur Leukocyte Esterase Urine RBC Urine WBC Ur Squamous Epith Cells Urine Bacteria Hyaline Casts Urine Opiates Screen Ur Buprenorphine Scrn Ur Oxycodone Screen Urine Methadone Screen Urine Fentanyl Screen Ur Barbiturates Screen Ur Phencyclidine Scrn Ur Amphetamines Screen U Benzodiazepines Scrn Urine Cocaine Screen U Marijuana (THC) Screen Ethyl Alcohol Hep Bs Antigen Negative Hep Bs Antibody NONREACTIVE Hep B Core Total Ab Nonreactive Hepatitis C Ab (EIA) Nonreactive HIV 1&2 Ab/P24 Ag 4thGn Nonreactive 09/23/23 10:47 MCV MCH MCHC RDW Plt Count MPV Immature Gran % (Auto) Neut % (Auto) Lymph % (Auto) Gates % (Auto) Eos % (Auto) Baso % (Auto) Lymph # (Auto) Gates # (Auto) Eos # (Auto) Baso # (Auto) Abs Immat Gran (auto) Absolute Neuts (auto) Absolute Nucleated RBC Nucleated RBC % (auto) PT INR APTT aPTT Heparin Protocol Anion Gap Estim Creat Clear Calc Estimated GFR POC Glucose 251 H Random Glucose Estimat Average Glucose Hemoglobin A1c % Calcium Magnesium Total Bilirubin Direct Bilirubin AST ALT Alkaline Phosphatase Troponin I High Sens B-Natriuretic Peptide Total Protein Albumin Urine Color Urine Appearance Urine pH Ur Specific [place] Urine Protein Urine Glucose (UA) Urine Ketones Urine Blood Urine Nitrite Ur Leukocyte Esterase Urine RBC Urine WBC Ur Squamous Epith Cells Urine Bacteria Hyaline Casts Urine Opiates Screen Ur Buprenorphine Scrn Ur Oxycodone Screen Urine Methadone Screen Urine Fentanyl Screen Ur Barbiturates Screen Ur Phencyclidine Scrn Ur Amphetamines Screen U Benzodiazepines Scrn Urine Cocaine Screen U Marijuana (THC) Screen Ethyl Alcohol Hep Bs Antigen Hep Bs Antibody Hep B Core Total Ab Hepatitis C Ab (EIA) HIV 1&2 Ab/P24 Ag 4thGn Assessment and Plan (1) Non-ST elevation [place] (NSTEMI): Status: Acute Plan d2 57yo F with polysubstance abuse, DM2, HTN, HLD, GERD, mood disorder presenting with chest discomfort, found to have elevated/rising troponin without EKG changes NSTEMI - on IV heparin started 09/22/23, continue for total 72h; continue aspirin + atorvastatin; load + continue clopidogrel - avoid beta-robbie due to cocaine abuse; will give amlodipine - TTE pending and Cardiology consulted and will arrange inpatient stress test [rest today, stress 09/25/23] and if positive will need transfer to [facility] for cardiac catheterization HTN - continue amlodipine knee pain - lidocaine patch, APAP, morphine DM2, A1c 8.9 basal-bolus insulin neuropathy - gabapentin GERD - PPI cocaine abuse - HBV/HCV/HIV screen negative; Addiciton Medicine consultation pending mood disorder - aripiprazole VTE ppx - being heparinized dispo - TBD In my clinical judgment, the patient requires continued inpatient hospitalization for the following reasons: heparinization, stress testing Total time managing care of this patient today: 45 minutes. Quality Stroke Does the patient have a stroke diagnosis?: No VTE Prior VTE?: No VTE Risk Level:: Medical - moderate - high VTE Device Contraindication: Treatment Not Indicated VTE Drug Contraindication: N/A - Med Ordered
[2023-09-23] MEDS: Lidocaine 4 % Patch ADH..PATCH 1 PATCH TRANSDERMA (13:03)
[2023-09-23] MEDS: Morphine Sulfate 2 MG/ML CARTRIDGE IVPUSH ×3 (13:04→21:22)
[2023-09-23] MEDS: amLODIPine Besylate 2.5 MG TABLET PO (13:05)
[2023-09-23] MEDS: Clopidogrel Bisulfate 300 MG TABLET PO (13:08)
--- NOTE | 2023-09-23 15:32 | P.CDIM_ITS ---
PROVIDER RESPONSE TEXT: To clarify, the appropriate diagnosis supported by the clinical indicators: Other (explain): Obesity QUERY TEXT: PHYSICIAN'S DOCUMENTATION REQUEST Date of Query: 09/23/2023 12:37 PM EDT Patient Name: Jannet Alvarez Admit Date: 09/23/2023 Dear Cara Diallo, A review of the medical record indicates additional documentation may be needed. Please review below and update the documentation accordingly. Clinical Indicators: Height: 5ft 2in Weight: 89.3kg BMI: 36.0 Other Clinical Notes Supporting Significance of the BMI: Nursing assessment notes Height and Weight: Obese class II - BMI 36.0 If possible, please provide an associated diagnosis related to the abnormal BMI, such as: Overweight Obesity Due to excess calories Obesity Drug induced Obesity Due to other cause Specify the other cause Other (explain) Clinically unable to determine (explain) Thank you, Tamara Marcelo, CCS, CDIS Use of terms such as suspected, likely, concern for, or probable (associated with a specific diagnosi s that is being evaluated, monitored, or treated as if it exists) are acceptable and can be coded in the inpatient se tting, when documented at the time of discharge. Please use your independent medical judgment in providing your response. THIS QUERY IS PART OF THE PERMANENT MEDICAL RECORD
[2023-09-23 16:04] LABS: Glucose, Whole Blood 268 mg/dL (60-115)
--- NOTE | 2023-09-23 16:34 | MHC.RECOVRN ---
Met with patient in , ACS was consulted for question of cocaine abuse. Patient is admitted for an NSTEMI and started Heparin therapy. When I introduced myself to patient she was very upset, stating I am no addict, I am very upset that you are here . I explained why I was there and encouraged her to ask questions, she did state I tried cocaine once after 30 years and I will never do it again . She had no further questions and asked me to leave. Reviewed with Kristina Ruggiero APRN
[2023-09-23 16:56] LABS: PTT Heparin Drip 64.1 SEC (53-77.9)
[2023-09-23 21:06] LABS: Glucose, Whole Blood 264 mg/dL (60-115)
[2023-09-23] MEDS: Insulin Glargine,Hum.rec.anlog 100 UNIT/ML 10 ML VIAL 70 UNIT SUBCUT ×2 (21:14)
[2023-09-23] MEDS: Atorvastatin Calcium 80 MG TABLET PO (21:16)
[2023-09-23] MEDS: Gabapentin 400 MG CAPSULE 800 MG PO (21:22)
[2023-09-23 23:43] LABS: PTT Heparin Drip 57.7 SEC (53-77.9)
[2023-09-24] VITALS (9 sets, daily range): BP systolic 115–152; BP diastolic 57–71; PULSE 20–86; RESP 16–20; TEMP 35.9–36.4; O2SAT 96–99
[2023-09-24] MEDS: Heparin Sodium,Porcine/1/2NS 25,000 UNIT/250 ML IV.SOLN 10.72 UNIT IVCONT (01:09)
[2023-09-24] MEDS: Morphine Sulfate 2 MG/ML CARTRIDGE IVPUSH ×4 (01:55→21:15)
[2023-09-24 07:29] LABS: Glucose, Whole Blood 222 mg/dL (60-115)
[2023-09-24] MEDS: Insulin Lispro 100 UNIT/ML 3 ML VIAL SUBCUT ×4 (08:05→21:14)
[2023-09-24] MEDS: amLODIPine Besylate 2.5 MG TABLET PO (08:06)
[2023-09-24] MEDS: Aspirin 81 MG TAB.CHEW PO (08:06)
[2023-09-24] MEDS: ARIPiprazole 15 MG TABLET PO ×2 (08:07→21:14)
[2023-09-24] MEDS: Lidocaine 4 % Patch ADH..PATCH 1 PATCH TRANSDERMA (08:07)
[2023-09-24] MEDS: Clopidogrel Bisulfate 75 MG TABLET PO (08:07)
[2023-09-24] MEDS: 0.9 % Sodium Chloride Flush 3 ML SYRINGE IVFLUSH ×3 (08:08→21:15)
[2023-09-24] MEDS: Gabapentin 400 MG CAPSULE 800 MG PO ×2 (09:35→21:13)
--- NOTE | 2023-09-24 10:31 | PM.PNCARD ---
Subjective Subjective Date of Service: 09/24/23 Principal diagnosis: NSTEMI Interval history: Patient is not having anymore chest pain. Hemodynamically stable. Said that addiction specialty was called on her. I explained that that is just general protocol at this point time. She is tolerating IV heparin well. Troponin peaked at 06:40 no repeats have been done. Echocardiogram shows preserved LV ejection fraction with regional wall motion abnormality in circumflex/RCA territory. Review of Systems Constitutional: Reports no additional constitutional complaints Physical Exam Vital Signs: Last Vital Signs Temp 97.0 F 09/24/23 08:00 Pulse 66 09/24/23 08:00 Resp 18 09/24/23 08:00 BP 115/59 L 09/24/23 08:00 Pulse Ox 98 09/24/23 08:00 O2 Del Method Room Air 09/24/23 08:00 BMI result Body Mass Index 36.0 Const General: cooperative, comfortable, no acute distress, alert and awake Nutritional Appearance: obese Orientation/consciousness: patient oriented x3 Limitations: no limitations Neck Neck: Yes trachea midline, Yes supple and Yes no JVD Resp Effort & Inspection: normal respiratory effort Auscultation: clear to auscultation bilaterally Cardio Jugular venous distension: no JVD Palpation: normal PMI Rate: regular rate Rhythm: regular rhythm Heart sounds: S1 normal heart sound present, S2 normal heart sound present, no click, no gallops and no murmurs GI Auscultation: normal bowel sounds Neuro General: patient oriented x3 and no focal motor deficits Extrem General: Yes no clubbing, cyanosis or edema Objective Labs and Meds 09/23/23 07:23 09/23/23 07:22 Lab results: Laboratory Results - last 24 hr 09/23/23 09/23/23 09/23/23 09:33 10:47 15:53 aPTT Heparin Protocol 133.2 H* D POC Glucose 251 H 268 H 09/23/23 09/23/23 09/23/23 15:58 20:39 23:29 aPTT Heparin Protocol 64.1 D 57.7 POC Glucose 264 H 09/24/23 09/24/23 06:23 07:15 aPTT Heparin Protocol 63.0 POC Glucose 222 H Progress Note: A&P Assessment and plan (1) Non-ST elevation [place] (NSTEMI): Status: Acute Assessment and Plan: NSTEMI with regional wall motion of the echocardiogram could still represent stunning related to coronary vaso spasm although obstructive coronary artery disease needs to be ruled out. Resting study did not show much perfusion abnormality. I would suggest her to undergo cardiac catheterization to evaluate for coronary anatomy and further treatment based on the findings rather than pursuing stress testing given her age and risk factors. This was discussed with her in details. She understands agrees. Continue dual antiplatelet therapy. Continue Norvasc therapy. Continue high-intensity statin therapy and IV heparin till tomorrow and will transfer to [facility] on Tuesday for cardiac catheterization. This was discussed with her and she is agreeable. Complete avoidance of future use of cocaine was discussed with her and she says she is absolutely done with it and she has not addicted to it. Will continue to follow with you Time Spent With Patient Time: Total time managing care of this patient today ____ minutes. Progress Note: Quality Stroke Does the patient have a stroke diagnosis?: No Procedures Date of Service Date of Service: 09/24/23
--- NOTE | 2023-09-24 10:55 | HO.PM.IMPN ---
Subjective Subjective Date of Service: 09/24/23 Interval History: This history was taken in [place] from the patient. No chest pain/dyspnea C/o L knee pain Refused Addiciton Medicine consult, states she is no longer going to use cocaine Review of Systems Review of Systems: Yes all other systems are reviewed and are negative Physical Exam Vital Signs: Vital Signs: Last Vital Signs Temp 97.0 F 09/24/23 08:00 Pulse 66 09/24/23 08:00 Resp 18 09/24/23 08:00 BP 115/59 L 09/24/23 08:00 Pulse Ox 98 09/24/23 08:00 O2 Del Method Room Air 09/24/23 08:00 BMI result Body Mass Index 36.0 Gen: in no acute distress HEENT: sclera anicteric, moist mucus membranes Neck: supple Lungs: clear to auscultation bilaterally Heart: regular rate and rhythm, no murmurs Abd: soft, non-tender, non-distended Ext: no edema, L knee tender with limited ROM but no redness/warmth and minimal swelling Skin: warm/well-perfused Neuro: alert and oriented x3, no focal findings Psych: appropriate affect Objective Data Active Medications Acetaminophen (Acetaminophen 325 Mg Tablet) 650 mg PO Q6H PRN PRN Reason: Pain, Mild (Pain Scale 1-3) Amlodipine Besylate (Amlodipine Besylate 2.5 Mg Tablet) 2.5 mg PO DAILY [facility]; Protocol Last Admin: 09/24/23 08:06 Dose: 2.5 mg Documented By: MILAGRO Aripiprazole (Aripiprazole 15 Mg Tablet) 15 mg PO BEDTIME [facility] Last Admin: 09/23/23 21:15 Dose: 15 mg Documented By: NIRAV Aripiprazole (Aripiprazole 15 Mg Tablet) 15 mg PO DAILY [facility] Last Admin: 09/24/23 08:07 Dose: 15 mg Documented By: MILAGRO Aspirin (Aspirin 81 Mg Tab.Chew) 81 mg PO DAILY [facility] Last Admin: 09/24/23 08:06 Dose: 81 mg Documented By: MILAGRO Atorvastatin Calcium (Atorvastatin Calcium 80 Mg Tablet) 80 mg PO BEDTIME [facility] Last Admin: 09/23/23 21:16 Dose: 80 mg Documented By: NIRAV Clopidogrel Bisulfate (Clopidogrel Bisulfate 75 Mg Tablet) 75 mg PO DAILY [facility] Last Admin: 09/24/23 08:07 Dose: 75 mg Documented By: MILAGRO Gabapentin (Gabapentin 400 Mg Capsule) 800 mg PO TID PRN PRN Reason: neuropathic pain Last Admin: 09/24/23 09:35 Dose: 800 mg Documented By: MILAGRO Glucose (Glucose Gel 15 Gm Gel..Gram.) 15 gm PO Q15M PRN; Protocol PRN Reason: per Hypoglycemia Standing Ord. Heparin Sodium (Porcine) (Heparin Sodium,Porcine 5,000 Unit/Ml Vial) 3,600 unit 40 unit/kg (3600 unit) IVPUSH PROTOCOL BOLUS PRN; Protocol PRN Reason: 40 unit/kg - Heparin Protocol Last Admin: 09/23/23 09:22 Dose: 3,600 unit Documented By: ABRAN Heparin Sodium (Porcine) (Heparin Sodium,Porcine 5,000 Unit/Ml Vial) 7,100 unit 80 unit/kg (7100 unit) IVPUSH PROTOCOL BOLUS PRN; Protocol PRN Reason: 80 unit/kg - Heparin Protocol Heparin Sodium/Sodium Chloride (Heparin Sodium,Porcine/1/2ns) 25,000 unit in 250 mls @ 0 mls/hr IVCONT .Q0M [facility]; Protocol Last Admin: 09/24/23 01:09 Dose: 12 units/kg/hr, 10.72 mls/hr Documented By: NIRAV Co-signed By: JENNY Dextrose (D10) 250 mls @ 750 mls/hr IV Q15M PRN; Protocol PRN Reason: per Hypoglycemia Standing Ord. Insulin Glargine (Insulin Glargine,Hum.Rec.Anlog 100 Unit/Ml 10 Ml Vial) 70 unit SUBCUT BEDTIME [facility] Last Admin: 09/23/23 21:14 Dose: 70 unit Documented By: NIRAV Insulin Human Lispro (Insulin Lispro 100 Unit/Ml 3 Ml Vial) 0 unit SUBCUT QIDACHS [facility]; Protocol Last Admin: 09/24/23 08:05 Dose: 4 unit Documented By: MILAGRO Lidocaine (Lidocaine 4 % Patch Adh..Patch) 1 patch TRANSDERMA DAILY [facility]; Protocol Last Admin: 09/24/23 08:07 Dose: 1 patch Documented By: MILAGRO Melatonin (Melatonin 3 Mg Tablet) 6 mg PO BEDTIME PRN PRN Reason: Insomnia Morphine Sulfate (Morphine Sulfate 2 Mg/Ml Cartridge) 2 mg IVPUSH Q4H PRN; Protocol PRN Reason: severe pain Last Admin: 09/24/23 09:41 Dose: 2 mg Documented By: MILAGRO Ondansetron HCl (Ondansetron Hcl 4 Mg/2 Ml Vial) 4 mg IVPUSH Q8H PRN PRN Reason: Nausea and Vomiting Sodium Chloride (0.9 % Sodium Chloride Flush 3 Ml Syringe) 3 ml IVFLUSH QSHIFT [facility] Last Admin: 09/24/23 08:08 Dose: 3 ml Documented By: MILAGRO Tizanidine HCl (Tizanidine Hcl 4 Mg Tablet) 2 mg PO TID PRN PRN Reason: muscle spasticity Labs 09/23/23 07:23 09/23/23 07:22 Labs: Laboratory Results - last 24 hr 09/23/23 09/23/23 09/23/23 15:53 15:58 20:39 aPTT Heparin Protocol 64.1 D POC Glucose 268 H 264 H 09/23/23 09/24/23 09/24/23 23:29 06:23 07:15 aPTT Heparin Protocol 57.7 63.0 POC Glucose 222 H TTE 09/23/23 1. Low normal LV ejection fraction 50-55% with regional wall motion abnormality consistent with underlying coronary artery disease 2. Normal cardiac valvular Doppler 3. No gross pericardial effusion Assessment and Plan (1) Non-ST elevation [place] (NSTEMI): Status: Acute Plan d3 57yo F with polysubstance abuse, DM2, HTN, HLD, GERD, mood disorder presenting with chest discomfort, found to have elevated/rising troponin without EKG changes NSTEMI - on IV heparin started 09/22/23, continue for total 72h; continue aspirin + atorvastatin; loaded clopdigreol- continue DAPT - avoid beta-robbie due to cocaine abuse; continue amlodipine - TTE with RWMAs in LCX/RCA territory; [place] [facility] [place] HTN - continue amlodipine knee pain - lidocaine patch, APAP, morphine DM2 with hyperglycemia, A1c 8.9 - increase both basal and bolus insulin neuropathy - gabapentin GERD - PPI cocaine abuse - HBV/HCV/HIV screen negative; Addiciton Medicine consultation declined; counseled to avoid cocaine mood disorder - aripiprazole VTE ppx - being heparinized dispo - [place] [facility] [place] In my clinical judgment, the patient requires continued inpatient hospitalization for the following reasons: heparinization Total time managing care of this patient today: 35 minutes. Quality Stroke Does the patient have a stroke diagnosis?: No VTE Prior VTE?: No VTE Risk Level:: Medical - moderate - high VTE Device Contraindication: Treatment Not Indicated VTE Drug Contraindication: N/A - Med Ordered
[2023-09-24 11:26] LABS: Glucose, Whole Blood 286 mg/dL (60-115)
[2023-09-24 11:43] LABS: Troponin-I High Sensitivity 319.1 ng/L (<3.5-17.0)
[2023-09-24 16:20] LABS: Glucose, Whole Blood 259 mg/dL (60-115)
[2023-09-24 20:38] LABS: Glucose, Whole Blood 324 mg/dL (60-115)
[2023-09-24] MEDS: Atorvastatin Calcium 80 MG TABLET PO (21:14)
[2023-09-24] MEDS: Insulin Glargine,Hum.rec.anlog 100 UNIT/ML 10 ML VIAL 75 UNIT SUBCUT (21:14)
[2023-09-24] MEDS: TiZANidine HCL 4 MG TABLET 2 MG PO (23:42)
[2023-09-25] VITALS (8 sets, daily range): BP systolic 113–153; BP diastolic 55–74; PULSE 67–91; RESP 16–20; TEMP 36–36.4; O2SAT 93–99
[2023-09-25] MEDS: Heparin Sodium,Porcine/1/2NS 25,000 UNIT/250 ML IV.SOLN 10.72 UNIT IVCONT (00:10)
[2023-09-25] MEDS: Morphine Sulfate 2 MG/ML CARTRIDGE IVPUSH ×5 (01:32→22:54)
[2023-09-25 07:44] LABS: PTT Heparin Drip 58.4 SEC (53-77.9)
[2023-09-25 07:48] LABS: Glucose, Whole Blood 164 mg/dL (60-115)
[2023-09-25] MEDS: amLODIPine Besylate 2.5 MG TABLET PO (08:13)
[2023-09-25] MEDS: Aspirin 81 MG TAB.CHEW PO (08:13)
[2023-09-25] MEDS: Gabapentin 400 MG CAPSULE 800 MG PO ×2 (08:13→20:39)
[2023-09-25] MEDS: Clopidogrel Bisulfate 75 MG TABLET PO (08:13)
[2023-09-25] MEDS: ARIPiprazole 15 MG TABLET PO ×2 (08:13→20:39)
[2023-09-25] MEDS: Lidocaine 4 % Patch ADH..PATCH 1 PATCH TRANSDERMA (08:14)
[2023-09-25] MEDS: Insulin Lispro 100 UNIT/ML 3 ML VIAL SUBCUT ×4 (08:14→20:46)
[2023-09-25] MEDS: 0.9 % Sodium Chloride Flush 3 ML SYRINGE IVFLUSH ×2 (08:15→16:41)
--- NOTE | 2023-09-25 09:04 | HO.PM.IMPN ---
Subjective Subjective Date of Service: 09/25/23 Interval History: This history was taken in Greek from the patient. C/o L knee pain but no chest pain or dyspnea Review of Systems Review of Systems: Yes all other systems are reviewed and are negative Physical Exam Vital Signs: Vital Signs: Last Vital Signs Temp 97.0 F 09/25/23 07:55 Pulse 71 09/25/23 07:55 Resp 18 09/25/23 07:55 BP 132/70 09/25/23 07:55 Pulse Ox 98 09/25/23 07:55 O2 Del Method Room Air 09/25/23 07:55 BMI result Body Mass Index 36.0 Gen: in no acute distress HEENT: sclera anicteric, moist mucus membranes Neck: supple Lungs: clear to auscultation bilaterally Heart: regular rate and rhythm, no murmurs Abd: soft, non-tender, non-distended Ext: no edema, L knee tender with limited ROM but no redness/warmth and minimal swelling Skin: warm/well-perfused Neuro: alert and oriented x3, no focal findings Psych: appropriate affect Objective Data Active Medications Acetaminophen (Acetaminophen 325 Mg Tablet) 650 mg PO Q6H PRN PRN Reason: Pain, Mild (Pain Scale 1-3) Amlodipine Besylate (Amlodipine Besylate 2.5 Mg Tablet) 2.5 mg PO DAILY [facility]; Protocol Last Admin: 09/25/23 08:13 Dose: 2.5 mg Documented By: MILAGRO Aripiprazole (Aripiprazole 15 Mg Tablet) 15 mg PO BEDTIME [facility] Last Admin: 09/24/23 21:14 Dose: 15 mg Documented By: NIRAV Aripiprazole (Aripiprazole 15 Mg Tablet) 15 mg PO DAILY [facility] Last Admin: 09/25/23 08:13 Dose: 15 mg Documented By: MILAGRO Aspirin (Aspirin 81 Mg Tab.Chew) 81 mg PO DAILY [facility] Last Admin: 09/25/23 08:13 Dose: 81 mg Documented By: MILAGRO Atorvastatin Calcium (Atorvastatin Calcium 80 Mg Tablet) 80 mg PO BEDTIME [facility] Last Admin: 09/24/23 21:14 Dose: 80 mg Documented By: NIARV Clopidogrel Bisulfate (Clopidogrel Bisulfate 75 Mg Tablet) 75 mg PO DAILY [facility] Last Admin: 09/25/23 08:13 Dose: 75 mg Documented By: MILAGRO Gabapentin (Gabapentin 400 Mg Capsule) 800 mg PO TID PRN PRN Reason: neuropathic pain Last Admin: 09/25/23 08:13 Dose: 800 mg Documented By: MILAGRO Glucose (Glucose Gel 15 Gm Gel..Gram.) 15 gm PO Q15M PRN; Protocol PRN Reason: per Hypoglycemia Standing Ord. Heparin Sodium (Porcine) (Heparin Sodium,Porcine 5,000 Unit/Ml Vial) 3,600 unit 40 unit/kg (3600 unit) IVPUSH PROTOCOL BOLUS PRN; Protocol PRN Reason: 40 unit/kg - Heparin Protocol Last Admin: 09/23/23 09:22 Dose: 3,600 unit Documented By: ABRAN Heparin Sodium (Porcine) (Heparin Sodium,Porcine 5,000 Unit/Ml Vial) 7,100 unit 80 unit/kg (7100 unit) IVPUSH PROTOCOL BOLUS PRN; Protocol PRN Reason: 80 unit/kg - Heparin Protocol Heparin Sodium/Sodium Chloride (Heparin Sodium,Porcine/1/2ns) 25,000 unit in 250 mls @ 0 mls/hr IVCONT .Q0M JANINE; Protocol Last Titration: 09/25/23 08:04 Dose: 12 units/kg/hr, 10.72 mls/hr Documented By: MILAGRO Co-signed By: PALOMA Dextrose (D10) 250 mls @ 750 mls/hr IV Q15M PRN; Protocol PRN Reason: per Hypoglycemia Standing Ord. Insulin Glargine (Insulin Glargine,Hum.Rec.Anlog 100 Unit/Ml 10 Ml Vial) 82 unit SUBCUT BEDTIME [facility] Insulin Human Lispro (Insulin Lispro 100 Unit/Ml 3 Ml Vial) 0 unit SUBCUT QIDACHS [facility]; Protocol Last Admin: 09/25/23 08:14 Dose: 6 unit Documented By: MILAGRO Lidocaine (Lidocaine 4 % Patch Adh..Patch) 1 patch TRANSDERMA DAILY [facility]; Protocol Last Admin: 09/25/23 08:14 Dose: 1 patch Documented By: MILAGRO Melatonin (Melatonin 3 Mg Tablet) 6 mg PO BEDTIME PRN PRN Reason: Insomnia Morphine Sulfate (Morphine Sulfate 2 Mg/Ml Cartridge) 2 mg IVPUSH Q4H PRN; Protocol PRN Reason: severe pain Last Admin: 09/25/23 08:13 Dose: 2 mg Documented By: MILAGRO Ondansetron HCl (Ondansetron Hcl 4 Mg/2 Ml Vial) 4 mg IVPUSH Q8H PRN PRN Reason: Nausea and Vomiting Oxycodone HCl (Oxycodone Hcl Immed Release 5 Mg Tablet) 5 mg PO Q6H PRN PRN Reason: pain,moder Sodium Chloride (0.9 % Sodium Chloride Flush 3 Ml Syringe) 3 ml IVFLUSH QSHIFT JANINE Last Admin: 09/25/23 08:15 Dose: 3 ml Documented By: MILAGRO Tizanidine HCl (Tizanidine Hcl 4 Mg Tablet) 2 mg PO TID PRN PRN Reason: muscle spasticity Last Admin: 09/24/23 23:42 Dose: 2 mg Documented By: SALENAC Labs 09/23/23 07:23 09/23/23 07:22 Labs: Laboratory Results - last 24 hr 09/24/23 09/24/23 09/24/23 11:07 11:12 16:06 Hold Purple Top SEE NOTE aPTT Heparin Protocol POC Glucose 286 H 259 H Troponin I High Sens 319.1 H* D 09/24/23 09/25/23 09/25/23 20:35 07:01 07:44 Hold Purple Top aPTT Heparin Protocol 58.4 POC Glucose 324 H 164 H Troponin I High Sens Assessment and Plan (1) Non-ST elevation [place] (NSTEMI): Status: Acute Plan d4 57yo F with polysubstance abuse, DM2, HTN, HLD, GERD, mood disorder presenting with chest discomfort, found to have elevated/rising troponin without EKG changes NSTEMI - on IV heparin started 09/22/23, continue for total 72h; continue aspirin + atorvastatin; loaded clopidogrel and will continue DAPT - avoid beta-robbie due to cocaine abuse; continue amlodipine - TTE with RWMAs in LCX/RCA territory; [place] [facility] [place]25 HTN - continue amlodipine knee pain - lidocaine patch, APAP, morphine DM2 with hyperglycemia, A1c 8.9 - increase both basal and bolus insulin neuropathy - gabapentin GERD - PPI cocaine abuse - HBV/HCV/HIV screen negative; Addiciton Medicine consultation declined; counseled to avoid cocaine mood disorder - aripiprazole VTE ppx - being heparinized dispo - [place] [facility] [place]23 In my clinical judgment, the patient requires continued inpatient hospitalization for the following reasons: heparinization Total time managing care of this patient today: 35 minutes. Quality Stroke Does the patient have a stroke diagnosis?: No VTE Prior VTE?: No VTE Risk Level:: Medical - moderate - high VTE Device Contraindication: Treatment Not Indicated VTE Drug Contraindication: N/A - Med Ordered
--- NOTE | 2023-09-25 11:11 | P.PNCA_ITS ---
Subjective Subjective Date of Service: 09/25/23 Principal diagnosis: NSTEMI Interval history: Patient is feeling fine with no chest pain. Complains of pain in her knee. Denies any palpitations no lightheadedness. Hemodynamically stable. No arrhythmias overnight. Review of Systems Review of Systems Yes all other systems are reviewed and are negative Physical Exam Vital Signs: Last Vital Signs Temp 97.0 F 09/25/23 07:55 Pulse 71 09/25/23 07:55 Resp 18 09/25/23 07:55 BP 132/70 09/25/23 07:55 Pulse Ox 98 09/25/23 07:55 O2 Del Method Room Air 09/25/23 07:55 BMI result Body Mass Index 36.0 Const General: cooperative, comfortable, no acute distress, alert and awake Nutritional Appearance: obese Orientation/consciousness: patient oriented x3 Limitations: no limitations Neck Neck: Yes trachea midline, Yes supple and Yes no JVD Resp Effort & Inspection: normal respiratory effort Auscultation: clear to auscultation bilaterally Cardio Jugular venous distension: no JVD Palpation: normal PMI Rate: regular rate Rhythm: regular rhythm Heart sounds: S1 normal heart sound present, S2 normal heart sound present, no click, no gallops and no murmurs GI Auscultation: normal bowel sounds Neuro General: patient oriented x3 and no focal motor deficits Extrem General: Yes no clubbing, cyanosis or edema Objective Labs and Meds 09/23/23 07:23 09/23/23 07:22 Lab results: Laboratory Results - last 24 hr 09/24/23 09/24/23 09/24/23 11:07 11:12 16:06 Hold Purple Top SEE NOTE aPTT Heparin Protocol POC Glucose 286 H 259 H Troponin I High Sens 319.1 H* D 09/24/23 09/25/23 09/25/23 20:35 07:01 07:44 Hold Purple Top aPTT Heparin Protocol 58.4 POC Glucose 324 H 164 H Troponin I High Sens Progress Note: A&P Assessment and plan (1) Non-ST elevation [place] (NSTEMI): Status: Acute Assessment and Plan: NSTEMI with stable with no ongoing chest pain syndrome. Hemodynamically stable with no arrhythmias. Echocardiogram shows wall motion abnormality. Will cancel stress test for tomorrow and schedule for cardiac catheterization. Arrange for transfer tomorrow to [facility]. Continue dual antiplatelet therapy. IV heparin can be discontinued. Continue Norvasc and high-intensity statin therapy. We discussed about the need for cardiac catheterization including risk, benefits, alternatives. She understands agrees. This will determine its etiology as to vasospastic disease versus plaque rupture and require further treatment with stenting. Will follow with you Time Spent With Patient Time: Total time managing care of this patient today ____ minutes. Progress Note: Quality Stroke Does the patient have a stroke diagnosis?: No Procedures Date of Service Date of Service: 09/25/23
[2023-09-25 11:36] LABS: Glucose, Whole Blood 200 mg/dL (60-115)
--- NOTE | 2023-09-25 11:52 | P.DS_ITS ---
DS: Providers Provider Date of Service: 09/26/23 Date of admission: 09/22/23 22:32 Date of discharge: 09/26/23 Primary care physician: Maame Barber MD Consults: 09/22/23 22:37 Addiction Medicine Routine Consulting Provider: Addiction Covering Reason for consultation: polysubstance use Consult to Cardiology Routine Consulting Provider: [facility] Reason for consultation: NSTEMI DS: Diagnosis Discharge Diagnosis (1) Non-ST elevation [place] (NSTEMI): Status: Acute (2) Cocaine abuse: Status: Acute (3) Type 2 diabetes mellitus with hyperglycemia: Status: Acute DS: Summary Hospital Course Hospital Course: From the history and physical by the admitting hospitalist, Miranda Hudson MD, 09/22/23: This is a 57-year-old female with pertinent history of polysubstance use disorder, mood disorder, insulin-dependent diabetes mellitus, hypertension, mixed hyperlipidemia, gastroesophageal reflux disease who presents to the emergency department for evaluation of chest discomfort. Patient states she had sudden onset of midsternal chest discomfort at around 16:00 on the day of presentation. She was getting ready to attend her [employer] performance in school. The chest discomfort was constant and lasted until she came to the ER. Not worse with exacerbation and did not relief with rest. It was relieved with nitroglycerin in the ER. States she had a similar episode about 3 weeks ago which lasted only for a couple of minutes. The chest discomfort was associa lilibeth with nausea and radiated to the left shoulder. No sweating. No fever, chills, shortness of breath, palpitations, abdominal pain, changes in urinary or bowel habits. In the emergency department, troponin was found to be elevated and patient was initiated on IV heparin after Cardiology consultation. UDS positive for opiates and cocaine 57yo F with polysubstance abuse, DM2, HTN, HLD, GERD, and mood disorder presenting with chest discomfort and found to have elevated/rising troponin without EKG changes. She was admitted to the telemetry unit on an IV heparin drip for NSTEMI and started on aspirin and clopidogrel. No beta-robbie due to cocaine abuse; amlodipine was continued. Hs-Tn-I peaked at 647 ng/L. Cardiology was consulted. TTE on 09/23/23 showed RWMAs in LCX/RCA territory. She was transferred [place] [facility] [place]25. The importance of avoiding cocaine was counseled. Time Attestation Discharge Coordination Time (in mins): 45 Quality: Safe Use of Opioids Does Pt have an Active Cancer Diagnosis on the Problem List?: No Quality: Stroke Does the patient have a stroke diagnosis?: No Physical Exam Vital Signs: Vital Signs: Temp Pulse Resp BP Pulse Ox O2 Del Method 96.8 F 67 18 135/68 97 Room Air 09/26/23 07:12 09/26/23 07:12 09/26/23 07:12 09/26/23 07:12 09/26/23 07:12 09/26/23 07:12 Gen: in no acute distress HEENT: sclera anicteric, moist mucus membranes Neck: supple Lungs: clear to auscultation bilaterally Heart: regular rate and rhythm, no murmurs Abd: soft, non-tender, non-distended Ext: no edema, L knee tender with limited ROM but no redness/warmth and minimal swelling Skin: warm/well-perfused Neuro: alert and oriented x3, no focal findings Psych: appropriate affect DS: Data Data Completed and Pending Completed studies during hospitalization [Text1]: Laboratory Results WBC 11.4 X10*3/uL (4.8-10.8) H 09/23/23 07:23 RBC 4.37 X10*6/uL (4.20-5.50) 09/23/23 07:23 Hgb 13.9 g/dl (12.0-16.0) 09/23/23 07:23 Hct 41.5 % (37.0-47.0) 09/23/23 07:23 MCV 95.0 fL (80.0-98.0) 09/23/23 07:23 MCH 31.8 pg (27.0-33.0) 09/23/23 07:23 MCHC 33.5 g/dl (31.0-35.0) 09/23/23 07:23 RDW 12.7 % (11.0-16.0) 09/23/23 07:23 Plt Count 166 X10*3/uL (160-400) 09/23/23 07:23 MPV 11.5 fL (9.4-12.3) 09/23/23 07:23 Immature Gran % (Auto) 0.4 % (0.0-0.4) 09/23/23 07:22 Neut % (Auto) 53.4 % (45-73) 09/23/23 07:22 Lymph % (Auto) 34.2 % (20-40) 09/23/23 07:22 [place] % (Auto) 6.3 % (2-11) 09/23/23 07:22 Eos % (Auto) 5.3 % (0-4) H 09/23/23 07:22 Baso % (Auto) 0.4 % (0-2) 09/23/23 07:22 Lymph # (Auto) 3.9 X10*3/uL (1.2-4.9) 09/23/23 07:22 [place] # (Auto) 0.7 X10*3/uL (0.1-1.2) 09/23/23 07:22 Eos # (Auto) 0.6 X10*3/uL (0.0-0.4) H 09/23/23 07:22 Baso # (Auto) 0.1 X10*3/uL (0.0-0.2) 09/23/23 07:22 Abs Immat Gran (auto) 0.05 X10*3/uL (0.00-0.03) H 09/23/23 07:22 Absolute Neuts (auto) 6.0 x10*3/uL (2.0-8.3) 09/23/23 07:22 Absolute Nucleated RBC 0.000 X10*3/uL (0.0-0.012) 09/23/23 07:23 Nucleated RBC % (auto) 0.0 /100WBC (0.0-0.2) 09/23/23 07:23 Hold Purple Top SEE NOTE 09/24/23 11:07 PT 12.0 SEC (11.1-13.3) 09/23/23 07:22 INR 1.0 (0.9-1.1) 09/23/23 07:22 APTT 27.8 SEC (26.0-36.8) 09/22/23 18:52 aPTT Heparin Protocol 58.4 SEC (53-77.9) 09/25/23 07:01 Sodium 140 mmol/L (135-145) 09/23/23 07:22 Potassium 4.0 mmol/L (3.3-5.1) 09/23/23 07:22 Chloride 110 mmol/L (96-108) H 09/23/23 07:22 Carbon Dioxide 25 mmol/L (22-29) 09/23/23 07:22 Anion Gap 9 (12-20) L 09/23/23 07:22 BUN 19 mg/dL (9-16) H 09/23/23 07:22 Creatinine 0.93 mg/dL (0.5-1.4) 09/23/23 07:22 Estim Creat Clear Calc 68.4 09/23/23 07:22 Estimated GFR > 60 09/23/23 07:22 POC Glucose 257 mg/dL (60-115) H 09/26/23 07:30 Random Glucose 201 mg/dL (60-115) H 09/23/23 07:22 Estimat Average Glucose 209 mg/dL 09/23/23 07:23 Hemoglobin A1c % 8.9 % (<6.0) H 09/23/23 07:23 Calcium 10.1 mg/dL (8.4-10.2) D 09/23/23 07:22 Magnesium 1.9 mg/dL (1.6-2.6) 09/22/23 18:52 Total Bilirubin 0.1 mg/dL (0.0-1.0) 09/22/23 18:52 Direct Bilirubin < 0.2 mg/dL (0.0-0.5) 09/22/23 18:52 AST 13 U/L (5-31) 09/22/23 18:52 ALT 11 U/L (0-31) 09/22/23 18:52 Alkaline Phosphatase 105 U/L (39-117) 09/22/23 18:52 Troponin I High Sens 319.1 ng/L (<3.5-17.0) H* D 09/24/23 11:07 B-Natriuretic Peptide 14 pg/mL (<100) 09/22/23 18:52 Total Protein 7.6 g/dL (6.5-8.0) 09/22/23 18:52 Albumin 4.0 g/dL (3.5-5.0) 09/22/23 18:52 Urine Color Yellow 09/22/23 20:54 Urine Appearance Clear 09/22/23 20:54 Urine pH 5.5 (5.0-9.0) 09/22/23 20:54 Ur Specific [place] 1.025 (1.005-1.025) 09/22/23 20:54 Urine Protein 100 (2+) mg/dL (Neg-Trace) H 09/22/23 20:54 Urine Glucose (UA) Negative mg/dL (Negative) 09/22/23 20:54 Urine Ketones Trace mg/dL (Negative) 09/22/23 20:54 Urine Blood Negative (Negative) 09/22/23 20:54 Urine Nitrite Negative (Negative) 09/22/23 20:54 Ur Leukocyte Esterase Negative (Negative) 09/22/23 20:54 Urine RBC 0-2 /HPF (0-2) 09/22/23 20:54 Urine WBC 0-5 /HPF (0-5) 09/22/23 20:54 Ur Squamous Epith Cells 6-10 /HPF (0-2) 09/22/23 20:54 Urine Bacteria 1+ (None Seen) 09/22/23 20:54 Hyaline Casts 3-5 /LPF (0-2) 09/22/23 20:54 Urine Opiates Screen POSITIVE (Not Detect) H 09/22/23 20:54 Ur Buprenorphine Scrn Not Detected ng/mL (Not Detect) 09/22/23 20:54 Ur Oxycodone Screen Positive ng/mL (Not Detect) H 09/22/23 20:54 Urine Methadone Screen Not Detected ng/mL (Not Detect) 09/22/23 20:54 Urine Fentanyl Screen Not Detected (Not Detect) 09/22/23 20:54 Ur Barbiturates Screen Not Detected (Not Detect) 09/22/23 20:54 Ur Phencyclidine Scrn Not Detected (Not Detect) 09/22/23 20:54 Ur Amphetamines Screen Not Detected (Not Detect) 09/22/23 20:54 U Benzodiazepines Scrn Not Detected (Not Detect) 09/22/23 20:54 Urine Cocaine Screen POSITIVE (Not Detect) H 09/22/23 20:54 U Marijuana (THC) Screen POSITIVE (Not Detect) H 09/22/23 20:54 Ethyl Alcohol < 10 mg/dL 09/22/23 18:52 Hep Bs Antigen Negative (Negative) 09/23/23 08:32 Hep Bs Antibody NONREACTIVE (Nonreactive) 09/23/23 08:32 Hep B Core Total Ab Nonreactive (Nonreactive) 09/23/23 08:32 Hepatitis C Ab (EIA) Nonreactive (Nonreactive) 09/23/23 08:32 HIV 1&2 Ab/P24 Ag 4thGn Nonreactive (Nonreactive) 09/23/23 08:32 Impressions Chest X-Ray 09/22/23 18:05 IMPRESSION: No active cardiopulmonary disease. Discharge Plan Discharge Anticipated Discharge Date/Time: 09/26/23 11:47 Patient Disposition: Xfer Acute Care Hospital Discharge Diagnosis: NSTEMI Referrals: Maame Barber MD [Primary Care Provider] - 1 Week Discharge Medications: New atorvastatin 80 mg Tablet 80 mg PO BEDTIME Qty: 1 0RF lidocaine [Lidocaine Pain Relief] 4 % Adhesive Patch,Medicated 1 patch transdermal DAILY Qty: 1 0RF Protocol: Apply to: Apply to: left knee clopidogrel 75 mg Tablet 75 mg PO DAILY Qty: 1 0RF aspirin 81 mg Tablet,Chewable 81 mg PO DAILY Qty: 1 0RF oxycodone 5 mg Tablet 5 mg PO Q6H PRN (Reason: pain,moder) Qty: 1 0RF Rx Instructions: Partial Fill upon patient request. morphine 2 mg/mL Syringe 2 mg IVPUSH Q4H PRN (Reason: severe pain) Qty: 1 0RF Protocol: Hold for RR < HOLD and contact provider for RR < (bpm): 12 Rx Instructions: Partial Fill upon patient request. Continued amlodipine 5 mg tablet 5 mg PO DAILY aripiprazole 15 mg tablet 15 mg PO DAILY insulin aspart U-100 [Novolog FlexPen U-100 Insulin] 100 unit/mL (3 mL) insulin pen 32 - 38 unit subcut TIDWM diclofenac sodium 1 % gel 4 g topical QID PRN (Reason: Pain) insulin degludec [Tresiba FlexTouch U-200] 200 unit/mL (3 mL) insulin pen 88 unit subcut BEDTIME omeprazole 40 mg capsule,delayed release(DR/EC) 40 mg PO DAILY PRN (Reason: Acid Reflux) (DME) FreeStyle Lite Strips Strip See Rx Instructions .ROUTE .MEDSUPPLY Qty: 150 11RF Rx Instructions: As directed four times a day rosuvastatin 20 mg tablet 20 mg PO BEDTIME gabapentin 800 mg tablet 800 mg PO TID PRN (Reason: Pain) tizanidine 2 mg tablet 2 mg PO TID PRN (Reason: muscle spasticity) Qty: 90 1RF Discontinued celecoxib 200 mg capsule 200 mg PO BID PRN (Reason: Pain) Discharge Orders: Discharge Order (Routine); Ordered 09/26/23 Ordered By: Cara Diallo Diet: Diabetic diet Activity on Discharge: As tolerated Stand Alone Forms: Patient Portal Discharge page Print Language: Korean Care Plan Goals: cardiac health Health Concerns: NSTEMI Plan of Treatment: transfer to [facility] for cardiac catheterization avoid cocaine abuse Assessment: See Discharge Summary.
[2023-09-25 16:09] LABS: Glucose, Whole Blood 325 mg/dL (60-115)
[2023-09-25] MEDS: Atorvastatin Calcium 80 MG TABLET PO (20:46)
[2023-09-25] MEDS: Insulin Glargine,Hum.rec.anlog 100 UNIT/ML 10 ML VIAL 82 UNIT SUBCUT (20:47)
[2023-09-25 20:48] LABS: Glucose, Whole Blood 270 mg/dL (60-115)
[2023-09-26] VITALS: BP 149/64; PULSE 77; RESP 16; TEMP 36; O2SAT 96
[2023-09-26] MEDS: oxyCODONE HCl Immed Release 5 MG TABLET PO ×2 (02:32→08:25)
[2023-09-26] MEDS: 0.9 % Sodium Chloride Flush 3 ML SYRINGE IVFLUSH ×2 (02:33→07:48)
[2023-09-26] MEDS: TiZANidine HCL 4 MG TABLET 2 MG PO (06:32)
[2023-09-26 07:12] VITALS: BP 135/68; PULSE 67; RESP 18; TEMP 36; O2SAT 97
[2023-09-26 07:34] LABS: Glucose, Whole Blood 257 mg/dL (60-115)
[2023-09-26] MEDS: Gabapentin 400 MG CAPSULE 800 MG PO (07:47)
[2023-09-26] MEDS: amLODIPine Besylate 5 MG TABLET PO (08:22)
[2023-09-26] MEDS: Clopidogrel Bisulfate 75 MG TABLET PO (08:22)
[2023-09-26] MEDS: Insulin Lispro 100 UNIT/ML 3 ML VIAL SUBCUT (08:23)
[2023-09-26] MEDS: Aspirin 81 MG TAB.CHEW PO (08:23)
[2023-09-26] MEDS: Lidocaine 4 % Patch ADH..PATCH 1 PATCH TRANSDERMA (08:24)
[2023-09-26] MEDS: ARIPiprazole 15 MG TABLET PO (08:29)
--- NOTE | 2023-09-26 09:13 | P.PNCA_ITS ---
Subjective Subjective Date of Service: 09/26/23 Principal diagnosis: NSTEMI Interval history: Patient states she is feeling okay. No further chest pains. Review of Systems Review of Systems Yes all other systems are reviewed and are negative Constitutional: Reports as per HPI and Reports no additional constitutional complaints Eyes: Reports as per HPI and Denies no additional eye complaints Denies system reviewed and no additional complaints, except as documented and Reports as per HPI Cardiovascular: Reports as per HPI, Reports no additional cardiovascular complaints, Denies acrocyanosis, Denies cool extremities, Denies chest pain, Denies leg edema, Denies lightheadedness, Denies palpitations and Denies dyspnea Respiratory: Reports as per HPI, Denies no additional respiratory complaints and Denies dyspnea Gastrointestinal: Reports as per HPI and Denies no additional gastrointestinal complaints Genitourinary: Reports as per HPI Musculoskeletal: Reports no additional musculoskeletal complaints and Reports as per HPI Skin/Breast: Reports system reviewed and no additional complaints, except as docu Reports system reviewed and no additional complaints, except as documented and Reports as per HPI Psychiatric: Reports no additional psychiatric complaints and Reports as per HPI Endocrine: Reports no additional endocrine complaints, Reports as per HPI and Denies palpitations Hematologic/Lymphatic: Reports no additional hematologic/lymphatic complaints and Reports as per HPI Allergic/Immunologic: Reports no additional allergic/immunologic complaints and Reports as per HPI Physical Exam Vital Signs: Last Vital Signs Temp 96.8 F 09/26/23 07:12 Pulse 67 09/26/23 07:12 Resp 18 09/26/23 07:12 BP 135/68 09/26/23 07:12 Pulse Ox 97 09/26/23 07:12 O2 Del Method Room Air 09/26/23 07:12 BMI result Body Mass Index 36.0 Const General: comfortable and no acute distress Orientation/consciousness: patient oriented x3 HEENT Other: Unremarkable Head: Yes normal to inspection Neck Neck: Yes normal visual inspection Chest Chest palpation & inspection: normal inspection of the chest Resp Auscultation: clear to auscultation bilaterally Cardio Palpation: normal PMI Heart sounds: S1 normal heart sound present, S2 normal heart sound present, no gallops, no murmurs and no rubs GI Palpation (GI): Soft to palpation Back/Spine/Pelvis Other: unremarkable Skin General skin exam: no rashes or lesions noted Neuro General: patient oriented x3 Extrem General: Yes normal to inspection Psych Mental Status: mental status grossly normal Objective Labs and Meds 09/23/23 07:23 09/23/23 07:22 Lab results: Laboratory Results - last 24 hr 09/25/23 09/25/23 09/25/23 11:22 16:01 20:35 POC Glucose 200 H 325 H 270 H 09/26/23 07:30 POC Glucose 257 H Progress Note: A&P Assessment and plan (1) Non-ST elevation [place] (NSTEMI): Status: Acute (2) Cocaine abuse: Status: Acute Plan High sensitivity troponin levels are 41, 74, 244, 647 and 319. Cocaine positive on arrival-09/22/2023. Echocardiogram with LVEF of 50-55%; inferolateral wall, basal inferior, basal inferoseptal hypokinesis. She has been treated as NSTEMI, could be cocaine related. Plan for diagnostic catheterization. Will arrange transfer to [facility] for the same. Time Spent With Patient Time: Total time managing care of this patient today ____ minutes. Progress Note: Quality Stroke Does the patient have a stroke diagnosis?: No Procedures Date of Service Date of Service: 09/26/23
--- NOTE | 2023-09-26 09:46 | MHC.CM.PN ---
Patient will transfer to [facility] today.
== END 2023-09-26 10:35 | disposition short-term general hospital (02) | DRG 917 ==
LOC: HO.ED 22:16 → HO.EDOVER 22:35 → HO.IMC 09-23 00:18
PROVIDERS: Physician Assistant; Admitting Provider Student in an Organized Health Care Education/Training Program; Emergency Provider Internal Medicine; PCP Student in an Organized Health Care Education/Training Program; Visit Provider Family Medicine
DX: T40.5X1A Poisoning by cocaine, accidental (unintentional), initial encounter (principal); I21.A1 Myocardial infarction type 2; E78.2 Mixed hyperlipidemia; F39 Unspecified mood [affective] disorder; E11.65 Type 2 diabetes mellitus with hyperglycemia; I10 Essential (primary) hypertension; F14.10 Cocaine abuse, uncomplicated; E11.40 Type 2 diabetes mellitus with diabetic neuropathy, unspecified; F17.210 Nicotine dependence, cigarettes, uncomplicated; F19.90 Other psychoactive substance use, unspecified, uncomplicated; Z71.6 Tobacco abuse counseling; Z79.4 Long term (current) use of insulin; Z79.899 Other long term (current) drug therapy
CPT/HCPCS: 36415; 71045; 78451; 80048; 80076; 80307; 81001; 81003; 82947; 83036; 83735; 83880; 84484; 85025; 85027; 85610; 85730; 86704; 86706; 86803; 87340; 87389; 93005; 93306; 99285; A9500; J1644; J2270; J2405; Q9957

== ENCOUNTER 2023-09-22 22:32 | Outpatient (BNV) | payer OTHER, SELFPAY | END 2023-09-23 07:00 | PROVIDERS: Admitting Provider Student in an Organized Health Care Education/Training Program; Emergency Provider Internal Medicine; PCP Student in an Organized Health Care Education/Training Program; Visit Provider Internal Medicine Cardiovascular Disease | DX: I21.4 Non-ST elevation (NSTEMI) myocardial infarction (principal) | CPT/HCPCS: 93306 ==

== ENCOUNTER → 2023-09-22 22:32 | Outpatient (BNV) | payer OTHER, SELFPAY | PROVIDERS: Admitting Provider Student in an Organized Health Care Education/Training Program; Emergency Provider Internal Medicine; PCP Student in an Organized Health Care Education/Training Program; Visit Provider Student in an Organized Health Care Education/Training Program | DX: I21.4 Non-ST elevation (NSTEMI) myocardial infarction (principal); E11.65 Type 2 diabetes mellitus with hyperglycemia; F14.10 Cocaine abuse, uncomplicated | CPT/HCPCS: 99222; 99232; 99239 ==

== ENCOUNTER → 2023-09-22 22:32 | Outpatient (BNV) | payer OTHER, SELFPAY | PROVIDERS: Admitting Provider Student in an Organized Health Care Education/Training Program; Emergency Provider Internal Medicine; PCP Student in an Organized Health Care Education/Training Program; Visit Provider Internal Medicine Cardiovascular Disease | DX: I21.4 Non-ST elevation (NSTEMI) myocardial infarction (principal); F14.10 Cocaine abuse, uncomplicated | CPT/HCPCS: 93010; 99222; 99233 ==

== ENCOUNTER → 2023-09-27 23:59 | Outpatient (BNV) | payer OTHER, SELFPAY | PROVIDERS: PCP Student in an Organized Health Care Education/Training Program; Visit Provider Internal Medicine Cardiovascular Disease | DX: I21.4 Non-ST elevation (NSTEMI) myocardial infarction (principal) | CPT/HCPCS: 92928; 92978; 93458; 99152 ==

== ENCOUNTER 2023-10-12 16:04 | Emergency (ER) | payer OTHER, SELFPAY ==
--- NOTE | ~2023-10-12 | XR_ITS ---
EXAMINATION: XR CHEST CLINICAL INFORMATION: Shortness of breath COMPARISON: Previous chest x-ray most recent 09/22/2023 TECHNIQUE: 2 views of the chest were obtained. FINDINGS: The cardiac and mediastinal contours are stable. Small 4 mm dense right upper lobe nodule probably representing a calcified granuloma unchanged from multiple old exams. Lungs otherwise clear. No pleural effusion or pneumothorax. Degenerative changes of the spine. XR/XR chest 2V IMPRESSION: No evidence for acute disease in the chest.
--- NOTE | ~2023-10-12 | CT_ITS ---
EXAMINATION: CT ANGIOGRAM OF THE CHEST WITH AND WITHOUT CONTRAST (CT PULMONARY ANGIOGRAM FOR PE) CLINICAL INFORMATION: Reason for Exam shortness of breath, elevated d-dimer COMPARISON: Chest x-ray from earlier the same day TECHNIQUE: Prior to contrast administration, noncontrast localization images were obtained. Subsequently, multidetector volumetric imaging was performed from the thoracic inlet to below the diaphragms following the administration of 85 mL Omnipaque 350 intravenous contrast. No contrast reaction reported Sagittal, coronal, and MIP oblique sagittal reformatted images were obtained on the CT workstation, uploaded to PACS, and reviewed. This CT examination was performed using dose optimization techniques as appropriate, variously including the following: *Automated exposure control *Adjustment of mA and/or kV according to patient size (this includes techniques or standardized protocols for targeted exams where dose is matched to indication/reason for exam; i.e. extremities or head) *Use of iterative reconstruction technique Total exam dose-length product 328 mGy-cm FINDINGS: QUALITY OF STUDY/CONTRAST BOLUS: Satisfactory. PULMONARY ARTERIES: No pulmonary emboli. THORACIC AORTA: No aneurysm. LUN mm calcified right upper lobe nodule probably representing a calcified granuloma. Lungs are otherwise clear. PLEURA: No pleural effusion or pneumothorax. MEDIASTINUM: Normal heart size. No pericardial effusion. No hilar or mediastinal lymphadenopathy. No evidence of septal bowing or right heart strain. CORONARY ARTERY CALCIFICATION: None visualized on this study. CHEST WALL/AXILLA: No axillary or internal mammary lymphadenopathy. OSSEOUS STRUCTURES: No acute or suspicious osseous abnormality. UPPER ABDOMEN: Unremarkable. No reflux of contrast into the hepatic veins to suggest elevated right heart pressures. CT/CT angio chest PE protocol IMPRESSION: No evidence of pulmonary embolism. VTE: negative
[2023-10-12 16:19] VITALS: BP 130/78; BP 93/54; PULSE 82; RESP 18; TEMP 36.7; O2SAT 100; BMI 29.8
--- NOTE | 2023-10-12 16:22 | MHC.EDTECH ---
pt changed over at this time, pt was changed into hospital gown and placed on cardiac and continous o2 monitor, pt is on 3L NC
[2023-10-12 16:25] VITALS: BP 128/75; PULSE 79; RESP 20; TEMP 36.7; O2SAT 100
--- NOTE | 2023-10-12 16:43 | ECG_ITS ---
Test Reason : DYSPNEA Blood Pressure : / mmHG Vent. Rate : 078 BPM Atrial Rate : 078 BPM P-R Int : 114 ms QRS Dur : 090 ms QT Int : 368 ms P-R-T Axes : -12 005 034 degrees QTc Int : 419 ms Normal sinus rhythm Normal ECG When compared with ECG of 22-SEP-2023 21:51, No significant change was found Referred By: Rashmi Hood Electronically Signed By:SUNITA ORTEGA MD
[2023-10-12 17:02] LABS: MANUAL DIFF FLAG NO
--- NOTE | 2023-10-12 17:02 | ED_ITS ---
HPI - SOB/Dyspnea General Chief Complaint: Dyspnea Stated Complaint: SOB Time Seen by Provider: 10/12/23 16:30 Source: patient Mode of arrival: EMS Limitations: no limitations History of Present Illness HPI Narrative: Patient is a 58-year-old female who presents to the emergency department via EMS. She reports progressive shortness of breath over the past 2 days. She states that she awoke around 10 this morning, around 12:00 o'clock she was taking food out of the freezer to begin preparing her lunch when she was feeling increased shortness of breath. She reports that she felt as though she could not breathe through her nose and had to gasp for air, because she could not get enough. She reports that she tried to lie down in bed hoping that this would improve her symptoms but she continued to feel short of breath and ultimately decided to call EMS. Unfortunately, they had no pulse oximeter, and when they arrived to her home they noticed her to be using accessory muscles on exertion and she was placed on O2 via nasal cannula with symptomatic improvement from patient. She reports that she had a stent placed at [facility] approximately 2 weeks ago after being in this hospital for a few days with a ?heart attack?. She reports that she has been compliant with her medications. She denies any recent ill like symptoms. Denies fevers, chills, headache, dizziness, lightheadedness, neck pain, upper respiratory symptoms, cough, congestion, chest pain, nausea, vomiting, abdominal pain, genitourinary symptoms, numbness or tingling of the extremity he is Related Data Home Medications ?Medication ?Instructions ?Recorded ?Confirmed gabapentin 800 mg tablet 800 mg PO TID PRN Pain 07/07/23 09/23/23 rosuvastatin 20 mg tablet 20 mg PO BEDTIME 07/07/23 09/23/23 amlodipine 5 mg tablet 5 mg PO DAILY 09/23/23 09/23/23 aripiprazole 15 mg tablet 15 mg PO DAILY 09/23/23 09/23/23 diclofenac sodium 1 % topical gel 4 g topical QID PRN Pain 09/23/23 09/23/23 insulin aspart U-100 100 unit/mL 32 - 38 unit subcut TIDWM 09/23/23 09/23/23 (3 mL) subcutaneous pen (Novolog FlexPen U-100 Insulin aspart) insulin degludec 200 unit/mL (3 88 unit subcut BEDTIME 09/23/23 09/23/23 mL) subcutaneous pen (Tresiba FlexTouch U-200 insulin) omeprazole 40 mg capsule,delayed 40 mg PO DAILY PRN Acid Reflux 09/23/23 09/23/23 release Previous Rx's ?Medication ?Instructions ?Recorded blood sugar diagnostic (FreeStyle #150 ea 04/16/21 Lite Strips) tizanidine 2 mg tablet 2 mg PO TID PRN muscle spasticity 07/07/23 #90 tabs aspirin 81 mg chewable tablet 81 mg PO DAILY #1 tab 09/25/23 atorvastatin 80 mg tablet 80 mg PO BEDTIME #1 tab 09/25/23 clopidogrel 75 mg tablet 75 mg PO DAILY #1 tab 09/25/23 lidocaine 4 % topical patch 1 patch transdermal DAILY #1 ea 09/25/23 (Lidocaine Pain Relief) morphine 2 mg/mL intravenous 2 mg IVPUSH Q4H PRN severe pain #1 09/25/23 syringe mL oxycodone 5 mg tablet 5 mg PO Q6H PRN pain,moder #1 tab 09/25/23 Allergies Allergy/AdvReac Type Severity Reaction Status Date / Time penicillin V Allergy Unknown Hives Verified 10/12/23 16:22 Penicillins Allergy Unknown HIVES Verified 10/12/23 16:22 adhesive Allergy Rash Verified 10/12/23 16:22 Review of Systems 2 Review of Systems: Yes all other systems are reviewed and are negative PMFSH Past Medical History Attestation statement: The following information was validated with the patient. 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 DM2 (diabetes mellitus, type 2) Depressed Anxiety Bipolar 1 disorder Diabetes 1.5, managed as type 1 Surgical History H/O adenoidectomy History of tubal ligation History of cholecystectomy History of partial hysterectomy History of dental surgery Social History Social History Household Members: Children Household Members Other:: daughter Housing: Apartment Do you presently have visiting nurse or other home services: No Alcohol intake: current Alcohol intake frequency: holidays/special occasions only Alcohol type: wine Patient Tobacco Use Status: Current everyday Tobacco user Tobacco use type: Cigarette Cigarettes Per Day: 20 e-Cigarette/Vaping Use: Never Used Second Hand Smoke Exposure: Yes Substance Use Type: Marijuana Advance Directives: No Advance Directives Information Provided: No Do you have a plan to hurt others: No Plan service: No Current occupational status: disabled Physical Exam 2 Vital Signs: Vital Signs: Last Vital Signs Temp 98.1 F 10/12/23 20:01 Pulse 74 10/12/23 20:01 Resp 16 10/12/23 20:01 BP 134/68 10/12/23 20:01 Pulse Ox 99 10/12/23 20:01 O2 Del Method Room Air 10/12/23 20:01 O2 Flow Rate 3 10/12/23 16:25 Oxygen Flow Rate 3 10/12/23 16:19 BMI result Body Mass Index 29.8 Appearance: Alert.?Oriented to person, place and time. No acute distress.?Normal affect. Eyes: Pupils equal, round and reactive to light.? ENT: Pharynx normal.?? Neck: Normal inspection.? Neck supple.?? CVS: Heart sounds normal. Normal heart rate and rhythm.? Pulses normal.?? Respiratory: No respiratory distress.? Lung sounds clear to auscultation bilaterally?? Abdomen: Soft and non-tender. Normoactive bowel sounds. ? Skin: Skin warm and dry.? Normal skin color.? Extremities: No lower extremity edema.? No calf ttp? Neuro: Moves all extremities spontaneously. Sensation intact bilaterally. CN II- XII intact. No focal neuro deficits. Ambulates with normal steady gait. Course Reevaluation(s) Reevaluation #1: Received records from [facility], underwent cardiac catheterization 09/27/2023 with mild disease in the RCA and LAD, proximal circumflex plaque rupture with severe stenosis with PCI to the left circumflex; advised to continue on aspirin, ticagrelor, smoking cessation and abstinence from cocaine, referred for cardiac rehab. Serum labs overall unremarkable; no leukocytosis, no anemia, no thrombocytopenia. No electrolyte derangement. Non-anion gap hyperglycemia with random glucose of 276. No AVI. LFTs within normal range. BNP not consistent with CHF. High sensitive troponin within normal range at 2.8, EKG without ischemic findings; revealing a normal sinus rhythm with ventricular rate of 78, QTC 419, no ST elevation, no ST depression. Will obtain delta troponin to exclude ACS as etiology for shortness of breath. D-dimer pending. Viral studies are negative. CXR is without acute pathology Reevaluation #2: Age adjusted D-dimer with cutoff to 95, D-dimer is 322, CT angio of the chest to exclude pulmonary embolism. Reevaluation #3: Delta troponin negative. CT angio without evidence of pulmonary embolism. Denying shortness of breath at this time. Ambulatory with steady gait, no hypoxia, or distress. At this time feel that she is stable for discharge, outpatient follow-up with PCP/cardiology cardiac rehab as scheduled. Discussed strict return precautions. All questions answered. Medications Administered Discontinued Medications Generic Name Dose Route Start Last Admin Trade Name Freq PRN Reason Stop Dose Admin Sodium Chloride 1,000 mls @ 999 mls/hr 10/12/23 19:30 10/12/23 22:01 Ns IV 10/12/23 20:30 Infused .Q1H1M JANINE Infusion Iohexol 75 ml 10/12/23 20:01 10/12/23 20:02 Iohexol 350 Mg/Ml 100 Ml Infus..Btl IV 10/12/23 20:02 75 ml ONCE ONE Administration Medical Decision Making Medical Decision Making [facility] Narrative: Patient is a 58-year-old female with past medical history of polysubstance use disorder, type 2 diabetes, hypertension, hyperlipidemia, GERD, mood disorder, NSTEMI who presents to the emergency department for evaluation of shortness of breath as per HPI. Overall all she appears well, nontoxic, afebrile. She is speaking clear full sentences. Has not noted to be in respiratory distress at this time, lung sounds are clear bilaterally. She was placed on O2 pre-hospital via EMS at 3 L by nasal cannula with symptomatic improvement in her shortness of breath. Upon review she was recently admitted to this hospital 09/22/2023- 09/25/2023 being treated for an NSTEMI, TTE revealing RWMAs in LCX/RCA territory and she was transferred to [facility] for cardiac catheterization. At this time records have been requested from [facility]. Will obtain CBC to evaluate for leukocytosis/ anemia, CMP and lipase to evaluate for abnormal electrolytes /abnormal renal function/ abnormal hepatic/biliary function, EKG and troponin to evaluate for ischemia/ACS. Chest x-ray to evaluate for consolidation/ infiltrate/ mass/ pulmonary congestion and Urinalysis. Differential Diagnosis Differential Diagnoses: The differential diagnosis associated with the presentation includes (ACS, PE, pneumonia, viral syndrome, substance use disorder) Admission/Observation Consideration of admission/observation: Escalation of care including admission/observation considered Lab Data MDM Lab Attestation statement: I reviewed the patient's lab results. 10/12/23 16:58 10/12/23 16:58 Labs: Lab Results 10/12/23 10/12/23 Range/Units 16:58 19:14 WBC 10.4 (4.8-10.8) X10*3/uL RBC 4.11 L (4.20-5.50) X10*6/uL Hgb 13.2 (12.0-16.0) g/dl Hct 38.3 (37.0-47.0) % MCV 93.2 (80.0-98.0) fL MCH 32.1 (27.0-33.0) pg MCHC 34.5 (31.0-35.0) g/dl RDW 12.7 (11.0-16.0) % Plt Count 221 D (160-400) X10*3/uL MPV 11.0 (9.4-12.3) fL Immature Gran % (Auto) 0.4 (0.0-0.4) % Neut % (Auto) 57.4 (45-73) % Lymph % (Auto) 30.4 (20-40) % Emmet % (Auto) 6.2 (2-11) % Eos % (Auto) 5.2 H (0-4) % Baso % (Auto) 0.4 (0-2) % Lymph # (Auto) 3.2 (1.2-4.9) X10*3/uL Emmet # (Auto) 0.6 (0.1-1.2) X10*3/uL Eos # (Auto) 0.5 H (0.0-0.4) X10*3/uL Baso # (Auto) 0.0 (0.0-0.2) X10*3/uL Abs Immat Gran (auto) 0.04 H (0.00-0.03) X10*3/uL Absolute Neuts (auto) 6.0 (2.0-8.3) x10*3/uL Absolute Nucleated RBC 0.000 (0.0-0.012) X10*3/uL Nucleated RBC % (auto) 0.0 (0.0-0.2) /100WBC PT 11.3 (11.1-13.3) SEC INR 0.9 (0.9-1.1) D-Dimer High Sensitivty 322 NG/ML Sodium 139 (135-145) mmol/L Potassium 4.2 (3.3-5.1) mmol/L Chloride 107 (96-108) mmol/L Carbon Dioxide 25 (22-29) mmol/L Anion Gap 11 L (12-20) BUN 23 H (9-16) mg/dL Creatinine 1.13 (0.5-1.4) mg/dL Estim Creat Clear Calc 60.4 Estimated GFR 49 Random Glucose 276 H (60-115) mg/dL Calcium 10.1 (8.4-10.2) mg/dL Magnesium 1.9 (1.6-2.6) mg/dL Total Bilirubin 0.2 (0.0-1.0) mg/dL AST 12 (5-31) U/L ALT 11 (0-31) U/L Alkaline Phosphatase 120 H (39-117) U/L Troponin I High Sens 2.8 D 3.4 (<3.5-17.0) ng/L B-Natriuretic Peptide < 10 (<100) pg/mL Total Protein 7.0 (6.5-8.0) g/dL Albumin 3.5 (3.5-5.0) g/dL Influenza Type A (PCR) NEGATIVE (Negative) Influenza Type B (PCR) NEGATIVE (Negative) RSV RNA Qual (PCR) NEGATIVE (Negative) SARS-CoV-2 RNA (RT-PCR) NEGATIVE (Negative) Independent Interpretation I performed an independent interpretation of an: EKG (See course narrative) and Plain X-Ray (No consolidation infiltrate or pneumothorax) Radiology Impression Discussion of test interpretation with radiology: I have reviewed the radiologist's reading. Radiologist Impression: XR/XR chest 2V IMPRESSION: No evidence for acute disease in the chest. Independent Historian Clinical information obtained from an independent historian. History obtained from or confirmed by: EMS External Record Review External record reviewed: Inpatient record Discharge Plan Discharge Clinical Impression: Shortness of breath Patient Disposition: Home, Self-Care Instructions: Shortness of Breath (ED) Additional Instructions: Testing today was all very reassuring. No evidence of a heart attack, no evidence of pneumonia, no evidence of a blood clot in your lungs. Your lung sounds are clear. Testing for viruses such as COVID-19, flu, and RSV were negative. Please follow-up closely with your primary care provider/Cardiology, follow-through with cardiac rehab as scheduled. Return back to emergency department any new or worsening symptoms or concerns. Prescriptions: No Action amlodipine 5 mg tablet 5 mg PO DAILY aripiprazole 15 mg tablet 15 mg PO DAILY insulin aspart U-100 [Novolog FlexPen U-100 Insulin] 100 unit/mL (3 mL) insulin pen 32 - 38 unit subcut TIDWM diclofenac sodium 1 % gel 4 g topical QID PRN (Reason: Pain) insulin degludec [Tresiba FlexTouch U-200] 200 unit/mL (3 mL) insulin pen 88 unit subcut BEDTIME omeprazole 40 mg capsule,delayed release(DR/EC) 40 mg PO DAILY PRN (Reason: Acid Reflux) atorvastatin 80 mg Tablet 80 mg PO BEDTIME Qty: 1 0RF lidocaine [Lidocaine Pain Relief] 4 % Adhesive Patch,Medicated 1 patch transdermal DAILY Qty: 1 0RF Protocol: Apply to: Apply to: left knee clopidogrel 75 mg Tablet 75 mg PO DAILY Qty: 1 0RF aspirin 81 mg Tablet,Chewable 81 mg PO DAILY Qty: 1 0RF oxycodone 5 mg Tablet 5 mg PO Q6H PRN (Reason: pain,moder) Qty: 1 0RF Rx Instructions: Partial Fill upon patient request. morphine 2 mg/mL Syringe 2 mg IVPUSH Q4H PRN (Reason: severe pain) Qty: 1 0RF Protocol: Hold for RR < HOLD and contact provider for RR < (bpm): 12 Rx Instructions: Partial Fill upon patient request. (DME) FreeStyle Lite Strips Strip See Rx Instructions .ROUTE .MEDSUPPLY Qty: 150 11RF Rx Instructions: As directed four times a day rosuvastatin 20 mg tablet 20 mg PO BEDTIME gabapentin 800 mg tablet 800 mg PO TID PRN (Reason: Pain) tizanidine 2 mg tablet 2 mg PO TID PRN (Reason: muscle spasticity) Qty: 90 1RF Print Language: Wolof
[2023-10-12 17:04] LABS: Basophils Percent Auto 0.4 % (0-2); Eosinophils Absolute Auto 0.5 X10*3/uL (0.0-0.4); Eosinophils Percent Auto 5.2 % (0-4); Hematocrit 38.3 % (37.0-47.0); Hemoglobin 13.2 g/dl (12.0-16.0); Imm Gran Abs Auto 0.04 X10*3/uL (0.00-0.03); Imm Gran Pct Auto 0.4 % (0.0-0.4); Lymphocytes Absolute Auto 3.2 X10*3/uL (1.2-4.9); Lymphocytes Percent Auto 30.4 % (20-40); Mean Corpuscular HGB Conc 34.5 g/dl (31.0-35.0); Mean Corpuscular Hemoglobin 32.1 pg (27.0-33.0); Mean Corpuscular Volume 93.2 fL (80.0-98.0); Monocytes Absolute Auto 0.6 X10*3/uL (0.1-1.2); Monocytes Percent Auto 6.2 % (2-11); Neutrophils Percent Auto 57.4 % (45-73); Platelet Count 221 X10*3/uL (160-400); Red Blood Count 4.11 X10*6/uL (4.20-5.50); Red Cell Distribution Width 12.7 % (11.0-16.0); White Blood Count 10.4 X10*3/uL (4.8-10.8)
[2023-10-12 17:11] LABS: INTERNATIONAL NORM RATIO 0.9 (0.9-1.1); Prothrombin Time 11.3 SEC (11.1-13.3)
[2023-10-12 17:19] LABS: Alanine Aminotransferase 11 U/L (0-31); Albumin Level 3.5 g/dL (3.5-5.0); Alkaline Phosphatase 120 U/L (39-117); Anion Gap 11 (12-20); Aspartate Amino Transferase 12 U/L (5-31); Bilirubin Total 0.2 mg/dL (0.0-1.0); Blood Urea Nitrogen 23 mg/dL (9-16); Calcium 10.1 mg/dL (8.4-10.2); Carbon Dioxide 25 mmol/L (22-29); Chloride 107 mmol/L (96-108); Creatinine Clr Calc Pharmacy 60.4; Estimated Glomerular Filt Rate 49; Glucose Random 276 mg/dL (60-115); Magnesium 1.9 mg/dL (1.6-2.6); Potassium 4.2 mmol/L (3.3-5.1); Sodium 139 mmol/L (135-145)
[2023-10-12 17:24] VITALS: O2SAT 98
[2023-10-12 17:25] LABS: B Type Natriuretic Peptide < 10 pg/mL (<100)
[2023-10-12 17:26] LABS: Troponin-I High Sensitivity 2.8 ng/L (<3.5-17.0)
[2023-10-12 18:05] LABS: Influenza A PCR NEGATIVE (Negative); Influenza B PCR NEGATIVE (Negative); Resp Syncy Virus RNA Qual PCR NEGATIVE (Negative); SARS COV2 PCR INHOUSE NEGATIVE (Negative)
[2023-10-12 19:18] LABS: D Dimer High Sensitivity 322 NG/ML
[2023-10-12 20:01] VITALS: BP 134/68; PULSE 74; RESP 16; TEMP 36.7; O2SAT 99
[2023-10-12] MEDS: iohexoL 350 MG/ML 100 ML INFUS..BTL 75 ML IV (20:02)
[2023-10-12 20:03] LABS: Troponin-I High Sensitivity 3.4 ng/L (<3.5-17.0)
[2023-10-12] MEDS: 0.9 % Sodium Chloride 1,000 ML 999 ML IV (20:32)
--- NOTE | 2023-10-12 21:58 | PC.NURSE ---
patient up to bathroom independently. no signs of shortness of breath. will do ambulation trial
--- NOTE | 2023-10-12 22:01 | PC.NURSE ---
Ambulation trial complete - remained 98%-99% on room air throughout the trial. No SOB noted and no difficulty displayed while ambulating.
--- NOTE | 2023-10-12 22:04 | MHC.EDTECH ---
ambulation trial completed, pt o2 steady at 98% dropped to 94% at the beginning of trial, RN aware
[2023-10-12 22:09] VITALS: BP 134/68; PULSE 74; RESP 16; TEMP 36.7
== END 2023-10-12 22:12 | disposition home or self-care (01) ==
PROVIDERS: Nurse Practitioner Family; Emergency Provider Internal Medicine; PCP Student in an Organized Health Care Education/Training Program
DX: R06.02 Shortness of breath (principal); E13.9 Other specified diabetes mellitus without complications; I10 Essential (primary) hypertension; E78.5 Hyperlipidemia, unspecified; Z03.818 Encounter for observation for suspected exposure to other biological agents ruled out
CPT/HCPCS: 0241U; 36415; 71046; 71275; 80053; 83735; 83880; 84484; 85025; 85379; 85610; 93005; 96360; 99284; Q9967

== ENCOUNTER → 2023-10-12 16:43 | Outpatient (BNV) | payer OTHER, SELFPAY | PROVIDERS: Emergency Provider Internal Medicine; PCP Student in an Organized Health Care Education/Training Program; Visit Provider Internal Medicine Cardiovascular Disease | DX: R06.09 Other forms of dyspnea (principal) | CPT/HCPCS: 93010 ==

== ENCOUNTER 2023-10-25 23:39 | Emergency (ER) | payer OTHER, SELFPAY ==
[2023-10-25 23:46] VITALS: BP 137/72; PULSE 90; RESP 18; TEMP 36.3; O2SAT 98; BMI 31.4
== END 2023-10-26 02:01 | disposition left against medical advice (07) ==
PROVIDERS: Emergency Provider Emergency Medicine
DX: M25.562 Pain in left knee (principal); Z53.21 Procedure and treatment not carried out due to patient leaving prior to being seen by health care provider
CPT/HCPCS: 99281

== ENCOUNTER 2023-11-02 11:39 | Emergency (ER) | payer OTHER, SELFPAY ==
[2023-11-02 12:12] VITALS: BP 91/61; PULSE 80; RESP 20; TEMP 36.1; O2SAT 97; BMI 31.4
--- NOTE | 2023-11-02 12:20 | ED.GENADULT ---
HPI - General Adult General Chief complaint: Back Pain/Injury Stated complaint: back pain Time Seen by Provider: 11/02/23 13:33 Related Data Home Medications ?Medication ?Instructions ?Recorded ?Confirmed gabapentin 800 mg tablet 800 mg PO TID PRN Pain 07/07/23 09/23/23 rosuvastatin 20 mg tablet 20 mg PO BEDTIME 07/07/23 09/23/23 amlodipine 5 mg tablet 5 mg PO DAILY 09/23/23 09/23/23 aripiprazole 15 mg tablet 15 mg PO DAILY 09/23/23 09/23/23 diclofenac sodium 1 % topical gel 4 g topical QID PRN Pain 09/23/23 09/23/23 insulin aspart U-100 100 unit/mL 32 - 38 unit subcut TIDWM 09/23/23 09/23/23 (3 mL) subcutaneous pen (Novolog FlexPen U-100 Insulin aspart) insulin degludec 200 unit/mL (3 88 unit subcut BEDTIME 09/23/23 09/23/23 mL) subcutaneous pen (Tresiba FlexTouch U-200 insulin) omeprazole 40 mg capsule,delayed 40 mg PO DAILY PRN Acid Reflux 09/23/23 09/23/23 release Previous Rx's ?Medication ?Instructions ?Recorded blood sugar diagnostic (FreeStyle #150 ea 04/16/21 Lite Strips) tizanidine 2 mg tablet 2 mg PO TID PRN muscle spasticity 07/07/23 #90 tabs aspirin 81 mg chewable tablet 81 mg PO DAILY #1 tab 09/25/23 atorvastatin 80 mg tablet 80 mg PO BEDTIME #1 tab 09/25/23 clopidogrel 75 mg tablet 75 mg PO DAILY #1 tab 09/25/23 lidocaine 4 % topical patch 1 patch transdermal DAILY #1 ea 09/25/23 (Lidocaine Pain Relief) morphine 2 mg/mL intravenous 2 mg IVPUSH Q4H PRN severe pain #1 09/25/23 syringe mL oxycodone 5 mg tablet 5 mg PO Q6H PRN pain,moder #1 tab 09/25/23 Allergies Allergy/AdvReac Type Severity Reaction Status Date / Time penicillin V Allergy Unknown Hives Verified 11/02/23 12:19 Penicillins Allergy Unknown HIVES Verified 11/02/23 12:19 adhesive Allergy Rash Verified 11/02/23 12:19 [facility] Past Medical History Medical History Patellofemoral syndrome Tear of meniscus of right knee COVID-19 Tear of meniscus of right knee as current injury 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 DM2 (diabetes mellitus, type 2) Depressed Anxiety Bipolar 1 disorder Diabetes 1.5, managed as type 1 Surgical History H/O adenoidectomy History of tubal ligation History of cholecystectomy History of partial hysterectomy History of dental surgery Social History Social History Household Members: Children Household Members Other:: daughter Housing: Apartment Do you presently have visiting nurse or other home services: No Alcohol intake: current Alcohol intake frequency: holidays/special occasions only Alcohol type: wine Patient Tobacco Use Status: Current everyday Tobacco user Tobacco use type: Cigarette Cigarettes Per Day: 20 e-Cigarette/Vaping Use: Never Used Second Hand Smoke Exposure: Yes Substance Use Type: Marijuana Advance Directives: No Do you have a plan to hurt others: No Plan service: No Current occupational status: disabled Physical Exam ED Vital Signs: Vital Signs - 24 hr 11/02/23 12:48 Temperature 98.4 F Pulse Rate 72 Respiratory Rate 18 Blood Pressure 126/70 Pulse Oximetry 98 Oxygen Delivery Method Room Air BMI result Body Mass Index 31.4 Course Course Course Narrative: This is an RME: Additional HPI, ROS, PE not included below will be deferred to primary provider. RME assessment and note performed by: Joelle Talley PA-C This is a [id number], with recent NSTEMI with stent placement on Brillinta who presents to the ER with atraumatic severe back pain. Reports pain started after standing from toilet yesterday. Pain has been constant, worsens with positional changes. Describes as stabbing sensation. BP is low and similar on both sides, given hypotension and recent NSTEMI, pt to be brought back CECELIA, charge nurse notified. palpated DP pulse on left. Pt appears uncomfortable Plan: Labs, EKG, further ER evaluation needed Reevaluation(s) Reevaluation #1: Patient left without completing treatment. Medical Decision Making Lab Data 11/02/23 13:19 11/02/23 13:20 Labs: Lab Results 11/02/23 11/02/23 Range/Units 13:19 13:20 WBC 10.3 (4.8-10.8) X10*3/uL RBC 4.11 L (4.20-5.50) X10*6/uL Hgb 13.0 (12.0-16.0) g/dl Hct 38.9 (37.0-47.0) % MCV 94.6 (80.0-98.0) fL MCH 31.6 (27.0-33.0) pg MCHC 33.4 (31.0-35.0) g/dl RDW 12.9 (11.0-16.0) % Plt Count 191 (160-400) X10*3/uL MPV 11.3 (9.4-12.3) fL Immature Gran % (Auto) 0.3 (0.0-0.4) % Neut % (Auto) 56.3 (45-73) % Lymph % (Auto) 32.0 (20-40) % Jay % (Auto) 7.6 (2-11) % Eos % (Auto) 3.4 (0-4) % Baso % (Auto) 0.4 (0-2) % Lymph # (Auto) 3.3 (1.2-4.9) X10*3/uL Jay # (Auto) 0.8 (0.1-1.2) X10*3/uL Eos # (Auto) 0.4 (0.0-0.4) X10*3/uL Baso # (Auto) 0.0 (0.0-0.2) X10*3/uL Abs Immat Gran (auto) 0.03 (0.00-0.03) X10*3/uL Absolute Neuts (auto) 5.8 (2.0-8.3) x10*3/uL Absolute Nucleated RBC 0.000 (0.0-0.012) X10*3/uL Nucleated RBC % (auto) 0.0 (0.0-0.2) /100WBC PT 11.3 (11.1-13.3) SEC INR 0.9 (0.9-1.1) Sodium 138 (135-145) mmol/L Potassium 4.1 (3.3-5.1) mmol/L Chloride 108 (96-108) mmol/L Carbon Dioxide 22 (22-29) mmol/L Anion Gap 12 (12-20) BUN 24 H (9-16) mg/dL Creatinine 0.96 (0.5-1.4) mg/dL Estim Creat Clear Calc 65.7 Estimated GFR 59 Random Glucose 229 H (60-115) mg/dL Calcium 11.1 H D (8.4-10.2) mg/dL Total Bilirubin 0.3 (0.0-1.0) mg/dL Direct Bilirubin 0.1 (0.0-0.5) mg/dL AST 10 (5-31) U/L ALT 12 (0-31) U/L Alkaline Phosphatase 133 H (39-117) U/L Troponin I High Sens 4.2 (<3.5-17.0) ng/L Total Protein 7.1 (6.5-8.0) g/dL Albumin 3.7 (3.5-5.0) g/dL Lipase 14 (8-78) U/L Discharge Plan Discharge Clinical Impression: Back pain Patient Disposition: Left W/O Completing Treatment Prescriptions: No Action amlodipine 5 mg tablet 5 mg PO DAILY aripiprazole 15 mg tablet 15 mg PO DAILY insulin aspart U-100 [Novolog FlexPen U-100 Insulin] 100 unit/mL (3 mL) insulin pen 32 - 38 unit subcut TIDWM diclofenac sodium 1 % gel 4 g topical QID PRN (Reason: Pain) insulin degludec [Tresiba FlexTouch U-200] 200 unit/mL (3 mL) insulin pen 88 unit subcut BEDTIME omeprazole 40 mg capsule,delayed release(DR/EC) 40 mg PO DAILY PRN (Reason: Acid Reflux) atorvastatin 80 mg Tablet 80 mg PO BEDTIME Qty: 1 0RF lidocaine [Lidocaine Pain Relief] 4 % Adhesive Patch,Medicated 1 patch transdermal DAILY Qty: 1 0RF Protocol: Apply to: Apply to: left knee clopidogrel 75 mg Tablet 75 mg PO DAILY Qty: 1 0RF aspirin 81 mg Tablet,Chewable 81 mg PO DAILY Qty: 1 0RF oxycodone 5 mg Tablet 5 mg PO Q6H PRN (Reason: pain,moder) Qty: 1 0RF Rx Instructions: Partial Fill upon patient request. morphine 2 mg/mL Syringe 2 mg IVPUSH Q4H PRN (Reason: severe pain) Qty: 1 0RF Protocol: Hold for RR < HOLD and contact provider for RR < (bpm): 12 Rx Instructions: Partial Fill upon patient request. (DME) FreeStyle Lite Strips Strip See Rx Instructions .ROUTE .MEDSUPPLY Qty: 150 11RF Rx Instructions: As directed four times a day rosuvastatin 20 mg tablet 20 mg PO BEDTIME gabapentin 800 mg tablet 800 mg PO TID PRN (Reason: Pain) tizanidine 2 mg tablet 2 mg PO TID PRN (Reason: muscle spasticity) Qty: 90 1RF Discharge Date/Time: 11/02/23 14:11
--- NOTE | 2023-11-02 12:35 | ECG_ITS ---
Test Reason : SOB Blood Pressure : / mmHG Vent. Rate : 072 BPM Atrial Rate : 072 BPM P-R Int : 132 ms QRS Dur : 088 ms QT Int : 372 ms P-R-T Axes : 012 006 036 degrees QTc Int : 407 ms Normal sinus rhythm Normal ECG When compared with ECG of 12-OCT-2023 17:01, No significant change was found Referred By: Joelle Talley Electronically Signed By:SUNITA ORTEGA MD
[2023-11-02 12:48] VITALS: BP 126/70; PULSE 72; RESP 18; TEMP 36.9; O2SAT 98
[2023-11-02 13:23] LABS: MANUAL DIFF FLAG NO
[2023-11-02 13:27] LABS: Basophils Percent Auto 0.4 % (0-2); Eosinophils Absolute Auto 0.4 X10*3/uL (0.0-0.4); Eosinophils Percent Auto 3.4 % (0-4); Hematocrit 38.9 % (37.0-47.0); Imm Gran Abs Auto 0.03 X10*3/uL (0.00-0.03); Imm Gran Pct Auto 0.3 % (0.0-0.4); Lymphocytes Absolute Auto 3.3 X10*3/uL (1.2-4.9); Mean Corpuscular HGB Conc 33.4 g/dl (31.0-35.0); Mean Corpuscular Hemoglobin 31.6 pg (27.0-33.0); Mean Corpuscular Volume 94.6 fL (80.0-98.0); Mean Platelet Volume 11.3 fL (9.4-12.3); Monocytes Absolute Auto 0.8 X10*3/uL (0.1-1.2); Monocytes Percent Auto 7.6 % (2-11); Neutrophils Absolute Auto 5.8 x10*3/uL (2.0-8.3); Neutrophils Percent Auto 56.3 % (45-73); Platelet Count 191 X10*3/uL (160-400); Red Blood Count 4.11 X10*6/uL (4.20-5.50); Red Cell Distribution Width 12.9 % (11.0-16.0); White Blood Count 10.3 X10*3/uL (4.8-10.8)
[2023-11-02 13:36] LABS: INTERNATIONAL NORM RATIO 0.9 (0.9-1.1); Prothrombin Time 11.3 SEC (11.1-13.3)
[2023-11-02 13:47] LABS: Alanine Aminotransferase 12 U/L (0-31); Albumin Level 3.7 g/dL (3.5-5.0); Alkaline Phosphatase 133 U/L (39-117); Anion Gap 12 (12-20); Aspartate Amino Transferase 10 U/L (5-31); Bilirubin Direct 0.1 mg/dL (0.0-0.5); Bilirubin Total 0.3 mg/dL (0.0-1.0); Blood Urea Nitrogen 24 mg/dL (9-16); Calcium 11.1 mg/dL (8.4-10.2); Carbon Dioxide 22 mmol/L (22-29); Chloride 108 mmol/L (96-108); Creatinine Clr Calc Pharmacy 65.7; Estimated Glomerular Filt Rate 59; Glucose Random 229 mg/dL (60-115); Lipase 14 U/L (8-78); Potassium 4.1 mmol/L (3.3-5.1); Sodium 138 mmol/L (135-145); Total Protein 7.1 g/dL (6.5-8.0)
[2023-11-02 13:54] LABS: Troponin-I High Sensitivity 4.2 ng/L (<3.5-17.0)
--- NOTE | 2023-11-02 14:06 | PC.NURSE ---
Pt called multiple times asking for pain medication. This RN educated pt that the providers are aware. This RN offered non pharmeceutical options for pain such as a heat pad, cold pack, or repositioning. Pt declined. Pt very angry and said she wants to leave. This RN went to notify the proivder but pt had already left.
--- NOTE | 2023-11-02 14:10 | PC.NURSE ---
Addendum entered by Brigette Chase RN 11/02/23 14:16: Pt left without completing tx. PT able to ambulate with steadey gait Original Note: Pt left without being seen. Pt able to ambulate with steadey gait
== END 2023-11-02 14:11 | disposition left against medical advice (07) ==
PROVIDERS: Physician Assistant Medical; Emergency Provider Student in an Organized Health Care Education/Training Program; PCP Internal Medicine
DX: M54.50 Low back pain, unspecified (principal); I95.9 Hypotension, unspecified; R06.02 Shortness of breath; E11.9 Type 2 diabetes mellitus without complications; I25.2 Old myocardial infarction; F17.210 Nicotine dependence, cigarettes, uncomplicated; Z79.4 Long term (current) use of insulin; Z79.899 Other long term (current) drug therapy
CPT/HCPCS: 36415; 80048; 80076; 83690; 84484; 85025; 85610; 93005; 99283

== ENCOUNTER → 2023-11-02 12:35 | Outpatient (BNV) | payer OTHER, SELFPAY | PROVIDERS: Emergency Provider Student in an Organized Health Care Education/Training Program; PCP Internal Medicine; Visit Provider Internal Medicine Cardiovascular Disease | DX: R06.02 Shortness of breath (principal) | CPT/HCPCS: 93010 ==

== ENCOUNTER 2023-11-08 01:37 | Emergency (ER) | payer OTHER, SELFPAY ==
--- NOTE | ~2023-11-08 | XR_ITS ---
EXAMINATION: XR LUMBAR SPINE XR SACRUM/COCCYX CLINICAL INDICATION: Pain COMPARISON: 01/07/2023 TECHNIQUE: 2 views of the lumbar spine. 3 views of the sacrum/coccyx. FINDINGS: L5 appears partially sacralized. Slight retrolisthesis of L3 on L4 is unchanged from prior. Vertebral body heights are maintained. Multilevel endplate osteophytes are present. Redemonstrated disc space narrowing at L5-S1 and facet arthropathy of the lower lumbar spine. No acute fracture is seen in the lumbar spine or sacrum/coccyx. XR/XR lumbar spine 2-3V IMPRESSION: No acute findings identified. Chronic/degenerative changes as described above.
--- NOTE | ~2023-11-08 | XR_ITS ---
EXAMINATION: XR LUMBAR SPINE XR SACRUM/COCCYX CLINICAL INDICATION: Pain COMPARISON: 01/07/2023 TECHNIQUE: 2 views of the lumbar spine. 3 views of the sacrum/coccyx. FINDINGS: L5 appears partially sacralized. Slight retrolisthesis of L3 on L4 is unchanged from prior. Vertebral body heights are maintained. Multilevel endplate osteophytes are present. Redemonstrated disc space narrowing at L5-S1 and facet arthropathy of the lower lumbar spine. No acute fracture is seen in the lumbar spine or sacrum/coccyx. XR/XR sacrum coccyx min 2V IMPRESSION: No acute findings identified. Chronic/degenerative changes as described above.
[2023-11-08 01:45] VITALS: BP 121/71; PULSE 92; RESP 20; TEMP 36.8; O2SAT 99; BMI 32.1
[2023-11-08 02:01] VITALS: BP 126/60; PULSE 88; RESP 16; O2SAT 97
--- NOTE | 2023-11-08 02:49 | ED.BACK ---
HPI - Back Pain/Injury General Chief Complaint: Back Pain/Injury Stated Complaint: low back pain Time Seen by Provider: 11/08/23 02:29 Source: patient Mode of arrival: ambulatory Limitations: no limitations History of Present Illness ED Provider: DR. Iniguez HPI Narrative: 58-year-old female came in for evaluation of low back pain x1 week, described as stabbing pain in low back and radiates mostly to the left lower extremity as shooting pain. started about 7 days ago today pain is gotten worse, no urinary incontinence, no stool incontinence, no fever, no chills, no trauma to the back , no weakness, no numbness. Related Data Home Medications ?Medication ?Instructions ?Recorded ?Confirmed gabapentin 800 mg tablet 800 mg PO TID PRN Pain 07/07/23 09/23/23 rosuvastatin 20 mg tablet 20 mg PO BEDTIME 07/07/23 09/23/23 amlodipine 5 mg tablet 5 mg PO DAILY 09/23/23 09/23/23 aripiprazole 15 mg tablet 15 mg PO DAILY 09/23/23 09/23/23 diclofenac sodium 1 % topical gel 4 g topical QID PRN Pain 09/23/23 09/23/23 insulin aspart U-100 100 unit/mL 32 - 38 unit subcut TIDWM 09/23/23 09/23/23 (3 mL) subcutaneous pen (Novolog FlexPen U-100 Insulin aspart) insulin degludec 200 unit/mL (3 88 unit subcut BEDTIME 09/23/23 09/23/23 mL) subcutaneous pen (Tresiba FlexTouch U-200 insulin) omeprazole 40 mg capsule,delayed 40 mg PO DAILY PRN Acid Reflux 09/23/23 09/23/23 release Previous Rx's ?Medication ?Instructions ?Recorded blood sugar diagnostic (FreeStyle #150 ea 04/16/21 Lite Strips) tizanidine 2 mg tablet 2 mg PO TID PRN muscle spasticity 07/07/23 #90 tabs aspirin 81 mg chewable tablet 81 mg PO DAILY #1 tab 09/25/23 atorvastatin 80 mg tablet 80 mg PO BEDTIME #1 tab 09/25/23 clopidogrel 75 mg tablet 75 mg PO DAILY #1 tab 09/25/23 lidocaine 4 % topical patch 1 patch transdermal DAILY #1 ea 09/25/23 (Lidocaine Pain Relief) morphine 2 mg/mL intravenous 2 mg IVPUSH Q4H PRN severe pain #1 09/25/23 syringe mL oxycodone 5 mg tablet 5 mg PO Q6H PRN pain,moder #1 tab 09/25/23 oxycodone 5 mg tablet 5 mg PO BID PRN pain #10 tabs 11/08/23 Allergies Allergy/AdvReac Type Severity Reaction Status Date / Time penicillin V Allergy Unknown Hives Verified 11/08/23 01:47 Penicillins Allergy Unknown HIVES Verified 11/08/23 01:47 adhesive Allergy Rash Verified 11/08/23 01:47 Review of Systems Review of Systems: All other systems are reviewed and are negative Constitutional: Reports as per HPI and Reports no additional constitutional complaints Eyes: Reports as per HPI and Reports no additional eye complaints Reports system reviewed and no additional complaints, except as documented Cardiovascular: Reports as per HPI and Reports no additional cardiovascular complaints Respiratory: Reports as per HPI and Reports no additional respiratory complaints Gastrointestinal: Reports as per HPI and Reports no additional gastrointestinal complaints Genitourinary: Reports no additional female genitourinary complaints Musculoskeletal: Reports no additional musculoskeletal complaints Skin/Breast: Reports system reviewed and no additional complaints, except as docu Psychiatric: Reports no additional psychiatric complaints Endocrine: Reports no additional endocrine complaints Hematologic/Lymphatic: Reports no additional hematologic/lymphatic complaints Allergic/Immunologic: Reports no additional allergic/immunologic complaints Reports system reviewed and no additional complaints, except as documented and Reports Abnormal speech present [facility] Past Medical History Medical History Patellofemoral syndrome Tear of meniscus of right knee COVID-19 Tear of meniscus of right knee as current injury 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 DM2 (diabetes mellitus, type 2) Depressed Anxiety Bipolar 1 disorder Diabetes 1.5, managed as type 1 Surgical History H/O adenoidectomy History of tubal ligation History of cholecystectomy History of partial hysterectomy History of dental surgery Social History Social History Household Members: Children Household Members Other:: daughter Housing: Apartment Do you presently have visiting nurse or other home services: No Alcohol intake: current Alcohol intake frequency: holidays/special occasions only Alcohol type: wine Patient Tobacco Use Status: Current everyday Tobacco user Tobacco use type: Cigarette Cigarettes Per Day: 20 e-Cigarette/Vaping Use: Never Used Second Hand Smoke Exposure: Yes Substance Use Type: Marijuana Advance Directives: No Advance Directives Information Provided: Yes service: No Current occupational status: disabled Physical Exam Vital Signs: Vital Signs: Last Vital Signs Temp 98.3 F 11/08/23 04:03 Pulse 78 11/08/23 04:03 Resp 14 11/08/23 04:03 BP 127/72 11/08/23 04:03 Pulse Ox 95 11/08/23 04:03 O2 Del Method Room Air 11/08/23 04:03 BMI result Body Mass Index 32.1 Vital signs have been reviewed and appear to be correct. Blood pressure elevated. Heart rate normal. Respiratory rate normal. Temperature normal. Oxygen saturation normal. Appearance: Alert. Oriented X3. No acute distress. Head: Normal external exam. Normocephalic. Atraumatic. No Maxwell signs noted. No raccoon eyes noted Eyes: PERRLA. EOMI. Conjunctiva and sclera normal. Eyelids normal. ENT: TM's Normal. Pharynx normal. Uvula midline. Moist mucous membranes. No trismus noted. No drooling noted. No muffled voice noted. Neck: Normal inspection. Neck supple. FROM. No adenopathy. Thyroid Normal. No meningeal signs. No neck mass noted. CVS: Normal heart rate and rhythm. Heart sound normal. No murmurs noted. Pulses normal throughout. Respiratory: No respiratory distress. Painless inspiration. Breath sounds normal. No wheezes/rales/rhonchi noted. Chest nontender. No accessory muscle usage noted or decreased air movement noted. Abdomen: Soft and nontender. Bowel sounds normal in all 4 quadrants. No distention noted. No organomegaly noted. No visible injury noted. Back: No CVA tenderness. Full range of motion noted. Skin: Skin warm and dry. Normal skin color. Normal skin turgor. No rashes/lesions/lacerations noted. Extremities: No lower extremity edema. Extremities exhibit normal range of motion. Extremities nontender. Neuro: Oriented X 3. Cranial nerve exam: II-XII are grossly intact No motor deficit. No sensory deficit. Reflexes normal. Medications Administered Discontinued Medications Generic Name Dose Route Start Last Admin Trade Name Freq PRN Reason Stop Dose Admin Hydromorphone HCl 2 mg 11/08/23 02:46 11/08/23 02:52 Hydromorphone Hcl 2 Mg/Ml Vial IM 11/08/23 02:47 2 mg ONCE ONE Administration Protocol Medical Decision Making Differential Diagnosis Differential Diagnoses: The differential diagnosis associated with the presentation includes ( Back pain, lumbar radiculopathy, UTI, pyelonephritis.) Admission/Observation Consideration of admission/observation: Escalation of care including admission/observation considered Lab Data [facility] Lab Attestation statement: I reviewed the patient's lab results. Labs: Lab Results 11/08/23 Range/Units 03:17 Urine Color Yellow Urine Appearance Clear Urine pH 6.5 (5.0-9.0) Ur Specific [place] >= 1.030 H (1.005-1.025) Urine Protein 30 (1+) H (Neg-Trace) mg/dL Urine Glucose (UA) >=1000 H (Negative) mg/dL Urine Ketones Negative (Negative) mg/dL Urine Blood Negative (Negative) Urine Nitrite Negative (Negative) Ur Leukocyte Esterase Negative (Negative) Urine RBC 0-2 (0-2) /HPF Urine WBC 0-5 (0-5) /HPF Ur Squamous Epith Cells 0-2 (0-2) /HPF Urine Bacteria None Seen (None Seen) Hyaline Casts 0-2 (0-2) /LPF Independent Interpretation I performed an independent interpretation of an: Plain X-Ray ( lumbar spine x-ray:No acute findings identified. Chronic/degenerative changes as described above. ) Radiology Impression Discussion of test interpretation with radiology: I have reviewed the radiologist's reading. Discharge Plan Discharge Clinical Impression: Chronic low back pain Patient Disposition: Home, Self-Care Prescriptions: New oxycodone 5 mg tablet 5 mg PO BID PRN (Reason: pain) Qty: 10 0RF Rx Instructions: Partial Fill upon patient request. No Action amlodipine 5 mg tablet 5 mg PO DAILY aripiprazole 15 mg tablet 15 mg PO DAILY insulin aspart U-100 [Novolog FlexPen U-100 Insulin] 100 unit/mL (3 mL) insulin pen 32 - 38 unit subcut TIDWM diclofenac sodium 1 % gel 4 g topical QID PRN (Reason: Pain) insulin degludec [Tresiba FlexTouch U-200] 200 unit/mL (3 mL) insulin pen 88 unit subcut BEDTIME omeprazole 40 mg capsule,delayed release(DR/EC) 40 mg PO DAILY PRN (Reason: Acid Reflux) atorvastatin 80 mg Tablet 80 mg PO BEDTIME Qty: 1 0RF lidocaine [Lidocaine Pain Relief] 4 % Adhesive Patch,Medicated 1 patch transdermal DAILY Qty: 1 0RF Protocol: Apply to: Apply to: left knee clopidogrel 75 mg Tablet 75 mg PO DAILY Qty: 1 0RF aspirin 81 mg Tablet,Chewable 81 mg PO DAILY Qty: 1 0RF oxycodone 5 mg Tablet 5 mg PO Q6H PRN (Reason: pain,moder) Qty: 1 0RF Rx Instructions: Partial Fill upon patient request. morphine 2 mg/mL Syringe 2 mg IVPUSH Q4H PRN (Reason: severe pain) Qty: 1 0RF Protocol: Hold for RR < HOLD and contact provider for RR < (bpm): 12 Rx Instructions: Partial Fill upon patient request. (DME) FreeStyle Lite Strips Strip See Rx Instructions .ROUTE .MEDSUPPLY Qty: 150 11RF Rx Instructions: As directed four times a day rosuvastatin 20 mg tablet 20 mg PO BEDTIME gabapentin 800 mg tablet 800 mg PO TID PRN (Reason: Pain) tizanidine 2 mg tablet 2 mg PO TID PRN (Reason: muscle spasticity) Qty: 90 1RF Referrals: Juliet Adhikari MD [Primary Care Provider] - Print Language: Icelandic
[2023-11-08 02:52] VITALS: RESP 20
[2023-11-08] MEDS: HYDROmorphone HCl 2 MG/ML VIAL IM (02:52)
[2023-11-08 03:26] LABS: Appearance Urine Clear; Color Urine Yellow; Glucose Urine UA >=1000 mg/dL (Negative); Leukocyte Esterase Urine Negative (Negative); Nitrite Urine Negative (Negative); PH 6.5 (5.0-9.0); Specific Gravity - Urine >= 1.030 (1.005-1.025); UMIC TRIGGER UACC YES; Urine Blood Negative (Negative); Urine Ketones Negative (Negative); Urine Protein 30 (1+) mg/dL (Neg-Trace)
[2023-11-08 03:28] LABS: Bacteria Urine None Seen (None Seen); Hyaline Casts Urine 0-2 /LPF (0-2); RBC Urine 0-2 /HPF (0-2); Squamous Epithelial Cell Urine 0-2 /HPF (0-2); WBC Urine 0-5 /HPF (0-5)
[2023-11-08 04:03] VITALS: BP 127/72; PULSE 78; RESP 14; TEMP 36.8; O2SAT 95
[2023-11-08 06:18] VITALS: BP 118/71; PULSE 68; RESP 16; TEMP 36.6; O2SAT 98
== END 2023-11-08 06:19 | disposition home or self-care (01) ==
PROVIDERS: Emergency Provider Emergency Medicine; PCP Internal Medicine
DX: G89.29 Other chronic pain (principal); M54.50 Low back pain, unspecified; E11.22 Type 2 diabetes mellitus with diabetic chronic kidney disease; N18.9 Chronic kidney disease, unspecified; F14.10 Cocaine abuse, uncomplicated; F12.90 Cannabis use, unspecified, uncomplicated; F17.210 Nicotine dependence, cigarettes, uncomplicated; Z79.899 Other long term (current) drug therapy; Z79.84 Long term (current) use of oral hypoglycemic drugs; Z79.4 Long term (current) use of insulin
CPT/HCPCS: 72100; 72220; 81001; 96372; 99283; 99284; J1170

== ENCOUNTER 2023-11-10 14:39 | Emergency (ER) | payer OTHER, SELFPAY ==
[2023-11-10 14:43] VITALS: BP 114/86; PULSE 91; O2SAT 99
== END 2023-11-10 15:05 | disposition left against medical advice (07) ==
PROVIDERS: Emergency Provider Emergency Medicine
DX: M54.9 Dorsalgia, unspecified (principal); Z53.21 Procedure and treatment not carried out due to patient leaving prior to being seen by health care provider

== ENCOUNTER 2024-01-07 05:12 | Emergency (ER) | payer OTHER, SELFPAY ==
[2024-01-07 05:18] VITALS: BP 149/66; PULSE 87; RESP 22; TEMP 36.4; O2SAT 100; BMI 34.3
[2024-01-07 06:12] VITALS: BP 122/54; PULSE 84; RESP 16; TEMP 36.5; O2SAT 96
--- NOTE | 2024-01-07 06:59 | PC.NURSE ---
report given to Altagracia ALDANA
[2024-01-07 07:22] VITALS: BP 123/64; PULSE 80; RESP 18; TEMP 36.5; O2SAT 98
--- NOTE | 2024-01-07 07:56 | ED.BACK ---
HPI - Back Pain/Injury General Chief Complaint: Back Pain/Injury Stated Complaint: lower back pain Time Seen by Provider: 01/07/24 07:48 Source: patient Mode of arrival: ambulatory Limitations: no limitations History of Present Illness ED Provider: DR. Iniguez HPI Narrative: 58-year-old female came in for evaluation of low back pain x 3 months, described as stabbing pain in low back and radiates to both lower extremity but mostly to the left lower extremity as shooting pain. patient was seen and evaluated by [facility] was recommended to start physical therapy for 4 weeks 1st before any aggressive treatment, today pain is gotten worse, no urinary incontinence, no stool incontinence, no fever, no chills, no trauma to the back , no weakness, no numbness. patient was seen in the emergency department 2 months ago for similar presentation had a negative x-rays and pain was relieved after she received an injection of Toradol. Patient was sent home on oxycodone. Related Data Home Medications ?Medication ?Instructions ?Recorded ?Confirmed gabapentin 800 mg tablet 800 mg PO TID PRN Pain 07/07/23 09/23/23 rosuvastatin 20 mg tablet 20 mg PO BEDTIME 07/07/23 09/23/23 amlodipine 5 mg tablet 5 mg PO DAILY 09/23/23 09/23/23 aripiprazole 15 mg tablet 15 mg PO DAILY 09/23/23 09/23/23 diclofenac sodium 1 % topical gel 4 g topical QID PRN Pain 09/23/23 09/23/23 insulin aspart U-100 100 unit/mL 32 - 38 unit subcut TIDWM 09/23/23 09/23/23 (3 mL) subcutaneous pen (Novolog FlexPen U-100 Insulin aspart) insulin degludec 200 unit/mL (3 88 unit subcut BEDTIME 09/23/23 09/23/23 mL) subcutaneous pen (Tresiba FlexTouch U-200 insulin) omeprazole 40 mg capsule,delayed 40 mg PO DAILY PRN Acid Reflux 09/23/23 09/23/23 release Previous Rx's ?Medication ?Instructions ?Recorded blood sugar diagnostic (FreeStyle #150 ea 04/16/21 Lite Strips) tizanidine 2 mg tablet 2 mg PO TID PRN muscle spasticity 07/07/23 #90 tabs aspirin 81 mg chewable tablet 81 mg PO DAILY #1 tab 09/25/23 atorvastatin 80 mg tablet 80 mg PO BEDTIME #1 tab 09/25/23 clopidogrel 75 mg tablet 75 mg PO DAILY #1 tab 09/25/23 lidocaine 4 % topical patch 1 patch transdermal DAILY #1 ea 09/25/23 (Lidocaine Pain Relief) morphine 2 mg/mL intravenous 2 mg IVPUSH Q4H PRN severe pain #1 09/25/23 syringe mL oxycodone 5 mg tablet 5 mg PO Q6H PRN pain,moder #1 tab 09/25/23 oxycodone 5 mg tablet 5 mg PO BID PRN pain #10 tabs 11/08/23 ibuprofen 600 mg tablet 600 mg PO Q8H PRN pain #14 tabs 01/07/24 Allergies Allergy/AdvReac Type Severity Reaction Status Date / Time penicillin V Allergy Unknown Hives Verified 01/07/24 05:20 Penicillins Allergy Unknown HIVES Verified 01/07/24 05:20 adhesive Allergy Rash Verified 01/07/24 05:20 Review of Systems Review of Systems: all other systems are reviewed and are negative Constitutional: Reports as per HPI and Reports no additional constitutional complaints Eyes: Reports as per HPI and Reports no additional eye complaints Reports system reviewed and no additional complaints, except as documented Cardiovascular: Reports as per HPI and Reports no additional cardiovascular complaints Respiratory: Reports as per HPI and Reports no additional respiratory complaints Gastrointestinal: Reports as per HPI and Reports no additional gastrointestinal complaints Genitourinary: Reports no additional female genitourinary complaints Musculoskeletal: Reports no additional musculoskeletal complaints Skin/Breast: Reports system reviewed and no additional complaints, except as docu Psychiatric: Reports no additional psychiatric complaints Endocrine: Reports no additional endocrine complaints Hematologic/Lymphatic: Reports no additional hematologic/lymphatic complaints Allergic/Immunologic: Reports no additional allergic/immunologic complaints Reports system reviewed and no additional complaints, except as documented and Reports Abnormal speech present [facility] Past Medical History Medical History Patellofemoral syndrome Tear of meniscus of right knee COVID-19 Tear of meniscus of right knee as current injury 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 DM2 (diabetes mellitus, type 2) Depressed Anxiety Bipolar 1 disorder Diabetes 1.5, managed as type 1 Surgical History H/O adenoidectomy History of tubal ligation History of cholecystectomy History of partial hysterectomy History of dental surgery Social History Social History Household Members: Children Household Members Other:: daughter Housing: Apartment Do you presently have visiting nurse or other home services: No Alcohol intake: current Alcohol intake frequency: holidays/special occasions only Alcohol type: wine Patient Tobacco Use Status: Current everyday Tobacco user Tobacco use type: Cigarette Cigarettes Per Day: 20 Smoked in Last 30 Days: Yes e-Cigarette/Vaping Use: Never Used Second Hand Smoke Exposure: Yes Use of substances other than those prescribed or required for medical reasons: No Substance Use Type: Marijuana Advance Directives: No Advance Directives Information Provided: Yes Do you have a plan to hurt others: No Plan service: No Current occupational status: disabled Physical Exam Vital Signs: Vital Signs: Last Vital Signs Temp 97.7 F 01/07/24 07:22 Pulse 80 01/07/24 07:22 Resp 18 01/07/24 07:22 BP 123/64 01/07/24 07:22 Pulse Ox 98 01/07/24 07:22 O2 Del Method Room Air 01/07/24 07:22 BMI result Body Mass Index 34.3 Vital signs have been reviewed and appear to be correct. Blood pressure elevated. Heart rate normal. Respiratory rate normal. Temperature normal. Oxygen saturation normal. Appearance: Alert. Oriented X3. No acute distress. Head: Normal external exam. Normocephalic. Atraumatic. No Maxwell signs noted. No raccoon eyes noted Eyes: PERRLA. EOMI. Conjunctiva and sclera normal. Eyelids normal. ENT: TM's Normal. Pharynx normal. Uvula midline. Moist mucous membranes. No trismus noted. No drooling noted. No muffled voice noted. Neck: Normal inspection. Neck supple. FROM. No adenopathy. Thyroid Normal. No meningeal signs. No neck mass noted. CVS: Normal heart rate and rhythm. Heart sound normal. No murmurs noted. Pulses normal throughout. Respiratory: No respiratory distress. Painless inspiration. Breath sounds normal. No wheezes/rales/rhonchi noted. Chest nontender. No accessory muscle usage noted or decreased air movement noted. Abdomen: Soft and nontender. Bowel sounds normal in all 4 quadrants. No distention noted. No organomegaly noted. No visible injury noted. Back: No CVA tenderness. Full range of motion noted. Skin: Skin warm and dry. Normal skin color. Normal skin turgor. No rashes/lesions/lacerations noted. Extremities: No lower extremity edema. Extremities exhibit normal range of motion. Extremities nontender. Neuro: Oriented X 3. Cranial nerve exam: II-XII are grossly intact No motor deficit. No sensory deficit. Reflexes normal. Course Reevaluation(s) Reevaluation #1: Acute on chronic back pain, patient is await for physical therapy to start and re-evaluation by [facility] after. Feels better after was given Toradol IM, patient last time did well with oxycodone. Time: 10:00 Medications Administered Discontinued Medications Generic Name Dose Route Start Last Admin Trade Name Freq PRN Reason Stop Dose Admin Ketorolac Tromethamine 60 mg 01/07/24 08:01 01/07/24 08:10 Ketorolac Tromethamine 60 Mg/2 Ml Vial IM 01/07/24 08:02 60 mg ONCE ONE Administration Medical Decision Making Differential Diagnosis Differential Diagnoses: The differential diagnosis associated with the presentation includes ( Chronic back pain, lumbar radiculopathy, muscular back pain, cauda equina.) Admission/Observation Consideration of admission/observation: Escalation of care including admission/observation considered Discharge Plan Discharge Clinical Impression: Lumbar radiculopathy Patient Disposition: Home, Self-Care Instructions: Lumbar Radiculopathy (ED) Prescriptions: New ibuprofen 600 mg tablet 600 mg PO Q8H PRN (Reason: pain) Qty: 14 0RF No Action amlodipine 5 mg tablet 5 mg PO DAILY aripiprazole 15 mg tablet 15 mg PO DAILY insulin aspart U-100 [Novolog FlexPen U-100 Insulin] 100 unit/mL (3 mL) insulin pen 32 - 38 unit subcut TIDWM diclofenac sodium 1 % gel 4 g topical QID PRN (Reason: Pain) insulin degludec [Tresiba FlexTouch U-200] 200 unit/mL (3 mL) insulin pen 88 unit subcut BEDTIME omeprazole 40 mg capsule,delayed release(DR/EC) 40 mg PO DAILY PRN (Reason: Acid Reflux) atorvastatin 80 mg Tablet 80 mg PO BEDTIME Qty: 1 0RF lidocaine [Lidocaine Pain Relief] 4 % Adhesive Patch,Medicated 1 patch transdermal DAILY Qty: 1 0RF Protocol: Apply to: Apply to: left knee clopidogrel 75 mg Tablet 75 mg PO DAILY Qty: 1 0RF aspirin 81 mg Tablet,Chewable 81 mg PO DAILY Qty: 1 0RF oxycodone 5 mg Tablet 5 mg PO Q6H PRN (Reason: pain,moder) Qty: 1 0RF Rx Instructions: Partial Fill upon patient request. morphine 2 mg/mL Syringe 2 mg IVPUSH Q4H PRN (Reason: severe pain) Qty: 1 0RF Protocol: Hold for RR < HOLD and contact provider for RR < (bpm): 12 Rx Instructions: Partial Fill upon patient request. oxycodone 5 mg tablet 5 mg PO BID PRN (Reason: pain) Qty: 10 0RF Rx Instructions: Partial Fill upon patient request. (DME) FreeStyle Lite Strips Strip See Rx Instructions .ROUTE .MEDSUPPLY Qty: 150 11RF Rx Instructions: As directed four times a day rosuvastatin 20 mg tablet 20 mg PO BEDTIME gabapentin 800 mg tablet 800 mg PO TID PRN (Reason: Pain) tizanidine 2 mg tablet 2 mg PO TID PRN (Reason: muscle spasticity) Qty: 90 1RF Print Language: Greenlandic
--- NOTE | 2024-01-07 08:04 | PC.NURSE ---
Care of Pt assumed at change of shift. Pt c/o ongoing back pain x3 months. States she is due to see her PCP and has a surgery planned with [facility]. Back pain is 8/10. Pain radiated to the front and worsens with walking. Provider at bedside for eval. Awaiting orders.
[2024-01-07] MEDS: Ketorolac Tromethamine 60 MG/2 ML VIAL IM (08:10)
--- NOTE | 2024-01-07 08:32 | PC.NURSE ---
Pt comes to ED today with c/o insomnia x4 days causing increaesd confusion with dark stools and urinary frequency. VSS, afebrile, A&Ox3, mostly Kinyarwanda speaking-- present to help with translation when needed. Pt provided with urine cup for spec. Awaiting provder.
--- NOTE | 2024-01-07 08:57 | MHC.EDTECH ---
This tech answered call dayday pt stated she is ready to leave and want me to let doctor know that her in here to pick her up. RN notified.
[2024-01-07 09:17] VITALS: BP 142/74; PULSE 82; RESP 16; TEMP 36.5; O2SAT 98
== END 2024-01-07 09:19 | disposition home or self-care (01) ==
PROVIDERS: Emergency Provider Emergency Medicine
DX: M54.16 Radiculopathy, lumbar region (principal); M54.50 Low back pain, unspecified
CPT/HCPCS: 96372; 99284; J1885

== ENCOUNTER 2024-01-25 11:04 | Emergency (ER) | payer OTHER, SELFPAY ==
[2024-01-25 11:58] VITALS: BP 140/83; PULSE 92; RESP 18; TEMP 37; O2SAT 98; BMI 33.6
--- NOTE | 2024-01-25 12:06 | ECG_ITS ---
Test Reason : DIZZINESS Blood Pressure : / mmHG Vent. Rate : 093 BPM Atrial Rate : 093 BPM P-R Int : 104 ms QRS Dur : 082 ms QT Int : 338 ms P-R-T Axes : -15 -01 032 degrees QTc Int : 420 ms Sinus rhythm with short MO Otherwise normal ECG When compared with ECG of 02-NOV-2023 12:54, No significant change was found Referred By: Blayne Guevara Electronically Signed By:SUNITA ORTEGA MD
[2024-01-25 12:09] LABS: Glucose, Whole Blood 380 mg/dL (60-115)
--- NOTE | 2024-01-25 12:09 | ED_ITS ---
HPI - General Adult General Chief complaint: Dizziness Stated complaint: high blood sugar History of Present Illness HPI narrative: Patient left before completion of treatment by ED provider. Related Data Home Medications ?Medication ?Instructions ?Recorded ?Confirmed gabapentin 800 mg tablet 800 mg PO TID PRN Pain 07/07/23 09/23/23 rosuvastatin 20 mg tablet 20 mg PO BEDTIME 07/07/23 09/23/23 amlodipine 5 mg tablet 5 mg PO DAILY 09/23/23 09/23/23 aripiprazole 15 mg tablet 15 mg PO DAILY 09/23/23 09/23/23 diclofenac sodium 1 % topical gel 4 g topical QID PRN Pain 09/23/23 09/23/23 insulin aspart U-100 100 unit/mL 32 - 38 unit subcut TIDWM 09/23/23 09/23/23 (3 mL) subcutaneous pen (Novolog FlexPen U-100 Insulin aspart) insulin degludec 200 unit/mL (3 88 unit subcut BEDTIME 09/23/23 09/23/23 mL) subcutaneous pen (Tresiba FlexTouch U-200 insulin) omeprazole 40 mg capsule,delayed 40 mg PO DAILY PRN Acid Reflux 09/23/23 09/23/23 release Previous Rx's ?Medication ?Instructions ?Recorded blood sugar diagnostic (FreeStyle #150 ea 04/16/21 Lite Strips) tizanidine 2 mg tablet 2 mg PO TID PRN muscle spasticity 07/07/23 #90 tabs aspirin 81 mg chewable tablet 81 mg PO DAILY #1 tab 09/25/23 atorvastatin 80 mg tablet 80 mg PO BEDTIME #1 tab 09/25/23 clopidogrel 75 mg tablet 75 mg PO DAILY #1 tab 09/25/23 lidocaine 4 % topical patch 1 patch transdermal DAILY #1 ea 09/25/23 (Lidocaine Pain Relief) morphine 2 mg/mL intravenous 2 mg IVPUSH Q4H PRN severe pain #1 09/25/23 syringe mL oxycodone 5 mg tablet 5 mg PO Q6H PRN pain,moder #1 tab 09/25/23 oxycodone 5 mg tablet 5 mg PO BID PRN pain #10 tabs 11/08/23 ibuprofen 600 mg tablet 600 mg PO Q8H PRN pain #14 tabs 01/07/24 Allergies Allergy/AdvReac Type Severity Reaction Status Date / Time penicillin V Allergy Unknown Hives Verified 01/25/24 12:04 Penicillins Allergy Unknown HIVES Verified 01/25/24 12:04 adhesive Allergy Rash Verified 01/25/24 12:04 PMFSH Past Medical History Medical History Patellofemoral syndrome Tear of meniscus of right knee COVID-19 Tear of meniscus of right knee as current injury 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 DM2 (diabetes mellitus, type 2) Depressed Anxiety Bipolar 1 disorder Diabetes 1.5, managed as type 1 Surgical History H/O adenoidectomy History of tubal ligation History of cholecystectomy History of partial hysterectomy History of dental surgery Social History Social History Household Members: Children Household Members Other:: daughter Housing: Apartment Do you presently have visiting nurse or other home services: No Alcohol intake: current Alcohol intake frequency: holidays/special occasions only Alcohol type: wine Patient Tobacco Use Status: Current everyday Tobacco user Tobacco use type: Cigarette Cigarettes Per Day: 20 e-Cigarette/Vaping Use: Never Used Second Hand Smoke Exposure: Yes Substance Use Type: Marijuana Advance Directives: No Advance Directives Information Provided: No service: No Current occupational status: disabled Physical Exam ED Vital Signs: Vital Signs - 24 hr 01/25/24 11:58 Temperature 98.6 F Pulse Rate 92 Respiratory Rate 18 Blood Pressure 140/83 H Pulse Oximetry 98 Oxygen Delivery Method Room Air BMI result Body Mass Index 33.6 Course Course Course Narrative: RME: DOne by JHON cohen. She 8-year-old female presents to ED for complaint of dizziness. Patient states she has had multiple readings from her glucometer of glucose over 500. Patient states also very thirsty. Patient denies any slurred speech, facial droop, paralysis of extremities or loss of vision. Patient denies any chest pain shortness of breath. NIH score is 0. Physical exam benign. We will do labs. Medical Decision Making Lab Data 01/25/24 12:35 01/25/24 12:35 Labs: Lab Results 01/25/24 01/25/24 Range/Units 12:02 12:35 WBC 9.1 (4.8-10.8) X10*3/uL RBC 4.46 (4.20-5.50) X10*6/uL Hgb 14.6 (12.0-16.0) g/dl Hct 42.5 (37.0-47.0) % MCV 95.3 (80.0-98.0) fL MCH 32.7 (27.0-33.0) pg MCHC 34.4 (31.0-35.0) g/dl RDW 12.7 (11.0-16.0) % Plt Count 198 (160-400) X10*3/uL MPV 11.3 (9.4-12.3) fL Immature Gran % (Auto) 0.3 (0.0-0.4) % Neut % (Auto) 60.6 (45-73) % Lymph % (Auto) 27.4 (20-40) % [place] % (Auto) 6.4 (2-11) % Eos % (Auto) 4.6 H (0-4) % Baso % (Auto) 0.7 (0-2) % Lymph # (Auto) 2.5 (1.2-4.9) X10*3/uL [place] # (Auto) 0.6 (0.1-1.2) X10*3/uL Eos # (Auto) 0.4 (0.0-0.4) X10*3/uL Baso # (Auto) 0.1 (0.0-0.2) X10*3/uL Abs Immat Gran (auto) 0.03 (0.00-0.03) X10*3/uL Absolute Neuts (auto) 5.5 (2.0-8.3) x10*3/uL Absolute Nucleated RBC 0.000 (0.0-0.012) X10*3/uL Nucleated RBC % (auto) 0.0 (0.0-0.2) /100WBC PT 11.0 (10.9-12.4) SEC INR 0.9 (0.9-1.1) APTT 29.9 (26.0-36.8) SEC Sodium 138 (135-145) mmol/L Potassium 4.2 (3.3-5.1) mmol/L Chloride 108 (96-108) mmol/L Carbon Dioxide 22 (22-29) mmol/L Anion Gap 12 (12-20) BUN 21 H (9-16) mg/dL Creatinine 0.93 (0.5-1.4) mg/dL Estim Creat Clear Calc 70.2 Estimated GFR > 60 POC Glucose 380 H* (60-115) mg/dL Random Glucose 320 H (60-115) mg/dL Calcium 10.7 H (8.4-10.2) mg/dL Total Bilirubin 0.2 (0.0-1.0) mg/dL AST 13 (5-31) U/L ALT 13 (0-31) U/L Alkaline Phosphatase 113 (39-117) U/L Troponin I High Sens 3.7 (<3.5-17.0) ng/L Total Protein 7.6 (6.5-8.0) g/dL Albumin 3.8 (3.5-5.0) g/dL Beta-Hydroxybutyrate 0.00 L (0.02-0.27) mmol/L Discharge Plan Discharge Clinical Impression: Hyperglycemia Patient Disposition: Left W/O Completing Treatment Prescriptions: No Action ibuprofen 600 mg tablet 600 mg PO Q8H PRN (Reason: pain) Qty: 14 0RF amlodipine 5 mg tablet 5 mg PO DAILY aripiprazole 15 mg tablet 15 mg PO DAILY insulin aspart U-100 [Novolog FlexPen U-100 Insulin] 100 unit/mL (3 mL) insulin pen 32 - 38 unit subcut TIDWM diclofenac sodium 1 % gel 4 g topical QID PRN (Reason: Pain) insulin degludec [Tresiba FlexTouch U-200] 200 unit/mL (3 mL) insulin pen 88 unit subcut BEDTIME omeprazole 40 mg capsule,delayed release(DR/EC) 40 mg PO DAILY PRN (Reason: Acid Reflux) atorvastatin 80 mg Tablet 80 mg PO BEDTIME Qty: 1 0RF lidocaine [Lidocaine Pain Relief] 4 % Adhesive Patch,Medicated 1 patch transdermal DAILY Qty: 1 0RF Protocol: Apply to: Apply to: left knee clopidogrel 75 mg Tablet 75 mg PO DAILY Qty: 1 0RF aspirin 81 mg Tablet,Chewable 81 mg PO DAILY Qty: 1 0RF oxycodone 5 mg Tablet 5 mg PO Q6H PRN (Reason: pain,moder) Qty: 1 0RF Rx Instructions: Partial Fill upon patient request. morphine 2 mg/mL Syringe 2 mg IVPUSH Q4H PRN (Reason: severe pain) Qty: 1 0RF Protocol: Hold for RR < HOLD and contact provider for RR < (bpm): 12 Rx Instructions: Partial Fill upon patient request. oxycodone 5 mg tablet 5 mg PO BID PRN (Reason: pain) Qty: 10 0RF Rx Instructions: Partial Fill upon patient request. (DME) FreeStyle Lite Strips Strip See Rx Instructions .ROUTE .MEDSUPPLY Qty: 150 11RF Rx Instructions: As directed four times a day rosuvastatin 20 mg tablet 20 mg PO BEDTIME gabapentin 800 mg tablet 800 mg PO TID PRN (Reason: Pain) tizanidine 2 mg tablet 2 mg PO TID PRN (Reason: muscle spasticity) Qty: 90 1RF Discharge Date/Time: 01/25/24 19:49
[2024-01-25 12:43] LABS: MANUAL DIFF FLAG NO
[2024-01-25 12:46] LABS: Basophils Absolute Auto 0.1 X10*3/uL (0.0-0.2); Basophils Percent Auto 0.7 % (0-2); Eosinophils Absolute Auto 0.4 X10*3/uL (0.0-0.4); Eosinophils Percent Auto 4.6 % (0-4); Hematocrit 42.5 % (37.0-47.0); Hemoglobin 14.6 g/dl (12.0-16.0); Imm Gran Abs Auto 0.03 X10*3/uL (0.00-0.03); Imm Gran Pct Auto 0.3 % (0.0-0.4); Lymphocytes Absolute Auto 2.5 X10*3/uL (1.2-4.9); Lymphocytes Percent Auto 27.4 % (20-40); Mean Corpuscular HGB Conc 34.4 g/dl (31.0-35.0); Mean Corpuscular Hemoglobin 32.7 pg (27.0-33.0); Mean Corpuscular Volume 95.3 fL (80.0-98.0); Mean Platelet Volume 11.3 fL (9.4-12.3); Monocytes Absolute Auto 0.6 X10*3/uL (0.1-1.2); Monocytes Percent Auto 6.4 % (2-11); Neutrophils Absolute Auto 5.5 x10*3/uL (2.0-8.3); Neutrophils Percent Auto 60.6 % (45-73); Platelet Count 198 X10*3/uL (160-400); Red Blood Count 4.46 X10*6/uL (4.20-5.50); Red Cell Distribution Width 12.7 % (11.0-16.0); White Blood Count 9.1 X10*3/uL (4.8-10.8)
[2024-01-25 12:51] LABS: INTERNATIONAL NORM RATIO 0.9 (0.9-1.1)
[2024-01-25 12:54] LABS: Partial Thromboplastin Time 29.9 SEC (26.0-36.8)
[2024-01-25 13:01] LABS: Alanine Aminotransferase 13 U/L (0-31); Albumin Level 3.8 g/dL (3.5-5.0); Alkaline Phosphatase 113 U/L (39-117); Anion Gap 12 (12-20); Aspartate Amino Transferase 13 U/L (5-31); Bilirubin Total 0.2 mg/dL (0.0-1.0); Blood Urea Nitrogen 21 mg/dL (9-16); Calcium 10.7 mg/dL (8.4-10.2); Carbon Dioxide 22 mmol/L (22-29); Chloride 108 mmol/L (96-108); Creatinine Clr Calc Pharmacy 70.2; Estimated Glomerular Filt Rate > 60; Glucose Random 320 mg/dL (60-115); Potassium 4.2 mmol/L (3.3-5.1); Sodium 138 mmol/L (135-145); Total Protein 7.6 g/dL (6.5-8.0)
[2024-01-25 13:08] LABS: Troponin-I High Sensitivity 3.7 ng/L (<3.5-17.0)
== END 2024-01-25 19:49 | disposition left against medical advice (07) ==
PROVIDERS: Physician Assistant; Emergency Provider Emergency Medicine
DX: R42 Dizziness and giddiness (principal); E10.65 Type 1 diabetes mellitus with hyperglycemia; F17.210 Nicotine dependence, cigarettes, uncomplicated; R29.700 NIHSS score 0; Z79.4 Long term (current) use of insulin; Z79.899 Other long term (current) drug therapy; Z79.84 Long term (current) use of oral hypoglycemic drugs; Z79.02 Long term (current) use of antithrombotics/antiplatelets; Z79.82 Long term (current) use of aspirin
CPT/HCPCS: 36415; 80053; 82010; 82947; 84484; 85025; 85610; 85730; 93005; 99283

== ENCOUNTER → 2024-01-25 12:06 | Outpatient (BNV) | payer OTHER, SELFPAY | PROVIDERS: Visit Provider Internal Medicine Cardiovascular Disease | DX: R42 Dizziness and giddiness (principal) | CPT/HCPCS: 93010 ==

== ENCOUNTER 2024-04-10 14:38 | Outpatient (REF) | payer OTHER, SELFPAY | END 2024-04-10 14:39 | disposition home or self-care (01) | LOC: HO.MRI 14:38 | PROVIDERS: PCP Internal Medicine; Visit Provider Pediatrics | DX: M54.42 Lumbago with sciatica, left side (principal); G89.29 Other chronic pain; M54.16 Radiculopathy, lumbar region; M54.9 Dorsalgia, unspecified | CPT/HCPCS: 72148 ==

== ENCOUNTER 2024-08-31 23:26 | Emergency (ER) | payer OTHER, SELFPAY ==
[2024-08-31 23:30] VITALS: BP 127/72; PULSE 90; RESP 18; TEMP 36.4; O2SAT 96; BMI 34.3
[2024-09-01] MEDS: Lidocaine HCl 1%/Epi 1:100,000 10 ML VIAL INFILTRATI (02:09)
--- NOTE | 2024-09-01 02:26 | ED_ITS ---
HPI - General Adult General Chief complaint: Skin/Abscess/Foreign Body Stated complaint: Abscess in groin Time Seen by Provider: 09/01/24 01:47 Source: patient, RN notes reviewed and old records reviewed Mode of arrival: EMS Limitations: no limitations History of Present Illness ED Provider: Vance HPI narrative: 58-year-old female with a past medical history significant for type 2 diabetes, history of substance abuse, coronary artery disease, bipolar disorder presents for evaluation of an abscess Patient reports previous abscesses in her groin and believes she has an abscess in the groin. She states she has had a painful, red, swollen bumps for the last 4 days She has not had any active drainage Denies any fevers or chills Her pain is a 01/25 Related Data Home Medications ?Medication ?Instructions ?Recorded ?Confirmed gabapentin 800 mg tablet 800 mg PO TID PRN Pain 07/07/23 09/23/23 rosuvastatin 20 mg tablet 20 mg PO BEDTIME 07/07/23 09/23/23 amlodipine 5 mg tablet 5 mg PO DAILY 09/23/23 09/23/23 aripiprazole 15 mg tablet 15 mg PO DAILY 09/23/23 09/23/23 diclofenac sodium 1 % topical gel 4 g topical QID PRN Pain 09/23/23 09/23/23 insulin aspart U-100 100 unit/mL 32 - 38 unit subcut TIDWM 09/23/23 09/23/23 (3 mL) subcutaneous pen (Novolog FlexPen U-100 Insulin aspart) insulin degludec 200 unit/mL (3 88 unit subcut BEDTIME 09/23/23 09/23/23 mL) subcutaneous pen (Tresiba FlexTouch U-200 insulin) omeprazole 40 mg capsule,delayed 40 mg PO DAILY PRN Acid Reflux 09/23/23 0 09/23/23 release Previous Rx's ?Medication ?Instructions ?Recorded blood sugar diagnostic (FreeStyle #150 ea 04/16/21 Lite Strips) tizanidine 2 mg tablet 2 mg PO TID PRN muscle spasticity 07/07/23 #90 tabs aspirin 81 mg chewable tablet 81 mg PO DAILY #1 tab 09/25/23 atorvastatin 80 mg tablet 80 mg PO BEDTIME #1 tab 09/25/23 clopidogrel 75 mg tablet 75 mg PO DAILY #1 tab 09/25/23 lidocaine 4 % topical patch 1 patch transdermal DAILY #1 ea 09/25/23 (Lidocaine Pain Relief) morphine 2 mg/mL intravenous 2 mg IVPUSH Q4H PRN severe pain #1 09/25/23 syringe mL oxycodone 5 mg tablet 5 mg PO Q6H PRN pain,moder #1 tab 09/25/23 oxycodone 5 mg tablet 5 mg PO BID PRN pain #10 tabs 11/08/23 ibuprofen 600 mg tablet 600 mg PO Q8H PRN pain #14 tabs 01/07/24 cephalexin 500 mg capsule 500 mg PO QID #28 caps 09/01/24 Allergies Allergy/AdvReac Type Severity Reaction Status Date / Time penicillin V Allergy Unknown Hives Verified 08/31/24 23:32 Penicillins Allergy Unknown HIVES Verified 08/31/24 23:32 adhesive Allergy Rash Verified 08/31/24 23:32 Review of Systems Constitutional: Constitutional: Denies body ache(s), Denies chills and Denies fever(s) Eyes: Eyes: Denies blurry vision Integumentary/Breasts: Skin/Breast: Reports erythema, Reports skin pain and Reports skin swelling PMFSH Past Medical History Medical History Patellofemoral syndrome Tear of meniscus of right knee COVID-19 Tear of meniscus of right knee as current injury 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 DM2 (diabetes mellitus, type 2) Depressed Anxiety Bipolar 1 disorder Diabetes 1.5, managed as type 1 Surgical History H/O adenoidectomy History of tubal ligation History of cholecystectomy History of partial hysterectomy History of dental surgery Social History Social History Household Members: Children Household Members Other:: daughter Housing: Apartment Do you presently have visiting nurse or other home services: No Alcohol intake: current Alcohol intake frequency: holidays/special occasions only Alcohol type: wine Patient Tobacco Use Status: Current everyday Tobacco user Tobacco use type: Cigarette Cigarettes Per Day: 20 e-Cigarette/Vaping Use: Never Used Second Hand Smoke Exposure: Yes Substance Use Type: Marijuana Advance Directives: No Advance Directives Information Provided: Yes Do you have a plan to hurt others: No Plan service: No Current occupational status: disabled Physical Exam ED Vital Signs: Vital Signs - 24 hr 08/31/24 23:30 Temperature 97.6 F Pulse Rate 90 Respiratory Rate 18 Blood Pressure 127/72 Pulse Oximetry 96 Oxygen Delivery Method Room Air BMI result Body Mass Index 34.3 Other: There is a 2 x 4 cm area of edema with fluctuance, erythema and exquisite tenderness to the right side of the perineum. This is lateral to the labia majora. Medications Administered Discontinued Medications Generic Name Dose Route Start Last Admin Trade Name Freq PRN Reason Stop Dose Admin Lidocaine/Epinephrine 10 ml 09/01/24 02:06 09/01/24 02:09 Lidocaine Hcl 1%/Epi 1:100,000 10 Ml Vial INFILTRATI 09/01/24 02:07 10 ml ONCE ONE Administration Procedures Abscess I/D Site: other (Perineum) Side (if applicable): right Local Anesthetic: lidocaine 1% and with epi Amount of anesthesia used (mL): 2 Technique: incised with blade Amount of fluid expressed (mL): 6 Sent for culture/gram staining?: No Irrigation: No Packing used?: none Medical Decision Making Medical Decision Making MDM Narrative: 58-year-old female presents for evaluation of an abscess to the right perineum. See procedure note. The patient be discharged with cephalexin. She is afebrile, no evidence of systemic infection. Differential Diagnosis Differential Diagnoses: The differential diagnosis associated with the presentation includes Abscess Cellulitis Bartholin's gland abscess Hidradenitis Discharge Plan Discharge Clinical Impression: Abscess of perineum Patient Disposition: Home, Self-Care Instructions: Abscess (ED), Incision and Drainage (ED) Additional Instructions: Take cephalexin 4 times a day for 1 week. Apply warm compresses to the swollen area Use ibuprofen/Tylenol for pain. You should keep the area clean and dry I recommend avoiding shaving that area as this increases the chance of getting these infections Prescriptions: New cephalexin 500 mg capsule 500 mg PO QID Qty: 28 0RF No Action ibuprofen 600 mg tablet 600 mg PO Q8H PRN (Reason: pain) Qty: 14 0RF amlodipine 5 mg tablet 5 mg PO DAILY aripiprazole 15 mg tablet 15 mg PO DAILY insulin aspart U-100 [Novolog FlexPen U-100 Insulin] 100 unit/mL (3 mL) insulin pen 32 - 38 unit subcut TIDWM diclofenac sodium 1 % gel 4 g topical QID PRN (Reason: Pain) insulin degludec [Tresiba FlexTouch U-200] 200 unit/mL (3 mL) insulin pen 88 unit subcut BEDTIME omeprazole 40 mg capsule,delayed release(DR/EC) 40 mg PO DAILY PRN (Reason: Acid Reflux) atorvastatin 80 mg Tablet 80 mg PO BEDTIME Qty: 1 0RF lidocaine [Lidocaine Pain Relief] 4 % Adhesive Patch,Medicated 1 patch transdermal DAILY Qty: 1 0RF Protocol: Apply to: Apply to: left knee clopidogrel 75 mg Tablet 75 mg PO DAILY Qty: 1 0RF aspirin 81 mg Tablet,Chewable 81 mg PO DAILY Qty: 1 0RF oxycodone 5 mg Tablet 5 mg PO Q6H PRN (Reason: pain,moder) Qty: 1 0RF Rx Instructions: Partial Fill upon patient request. morphine 2 mg/mL Syringe 2 mg IVPUSH Q4H PRN (Reason: severe pain) Qty: 1 0RF Protocol: Hold for RR < HOLD and contact provider for RR < (bpm): 12 Rx Instructions: Partial Fill upon patient request. oxycodone 5 mg tablet 5 mg PO BID PRN (Reason: pain) Qty: 10 0RF Rx Instructions: Partial Fill upon patient request. (DME) FreeStyle Lite Strips Strip See Rx Instructions .ROUTE .MEDSUPPLY Qty: 150 11RF Rx Instructions: As directed four times a day rosuvastatin 20 mg tablet 20 mg PO BEDTIME gabapentin 800 mg tablet 800 mg PO TID PRN (Reason: Pain) tizanidine 2 mg tablet 2 mg PO TID PRN (Reason: muscle spasticity) Qty: 90 1RF Print Language: Venezuelan
[2024-09-01 02:47] VITALS: BP 130/72; PULSE 82; RESP 14; TEMP 37; O2SAT 99
[2024-09-01] MEDS: cephALEXin 500 MG CAPSULE PO (02:51)
[2024-09-01 03:12] VITALS: BP 130/72; PULSE 82; RESP 14; TEMP 37; O2SAT 99
== END 2024-09-01 03:14 | disposition home or self-care (01) ==
PROVIDERS: Emergency Provider Internal Medicine
DX: L02.214 Cutaneous abscess of groin (principal); I25.10 Atherosclerotic heart disease of native coronary artery without angina pectoris; E13.9 Other specified diabetes mellitus without complications
CPT/HCPCS: 10060; 99284; J2004

== ENCOUNTER 2025-01-04 13:39 | Outpatient (AMB) | payer OTHER, SELFPAY ==
--- OUTSIDE RECORDS SUMMARY | 2025-01-04 13:51 | XMS_ITS | Encounter Summary ---
Author Organization [employer] Address [address] [place] [id number] Care Team Providers Care Meeting Coordinator Name Role Phone Juliet Adhikari MD Primary Care Provider [phone] Reason for Referral * Consultation (Routine) - Closed Specialty Diagnoses / Procedures Referred By Contac t Referred To Contact Occupational Therapy Diagnoses Lumbar radiculopathy Chronic left-sided low back pain with left-sided sciatica Juliet Adhikari MD [address] [place] [id number] Phone: tel: fax: [facility] [place] [place] Physical Therapy [address] [place] [address] Phone: tel: fax: Referral ID Status Reason Start Date Expiration Date V isits Requested Visits Authorized [id number] Closed Specialty Services Required 07/18/2024 07/18/2025 1 1 * Consultation (Routine) - Closed Specialty Diagnoses / Procedures Referred By Contac t Referred To Contact Physical Therapy Diagnoses Lumbar radiculopathy Chronic left-sided low back pain with left-sided sciatica Juliet Adhikari MD [address] [place] [id number] Phone: tel: fax: [facility] [place] [place] Physical Therapy [address] [place] [address] Phone: tel: fax: Referral ID Status Reason Start Date Expiration Date V isits Requested Visits Authorized [id number] Closed Specialty Services Required 07/18/2024 07/18/2025 1 1 Encounter Details Date Type Department Care Team ([facility] st Contact Info) Description 07/18/2024 Orders Only [facility] MED & PEDS [address] [place] [address] Juliet Adhikari MD [address] [place] [address] Lumbar radiculopathy (Primary Dx); Chronic left-sided low back pain with left-sided sciatica Social History Tobacco Use Types Packs/Day Years Used Date Smoking Tobacco: Every Day Cigarettes Smokeless Tobacco: Never Alcohol Use Standard Drinks/Week Comments Not Currently 0 (1 standard drink = 0.6 oz pur e alcohol) Depression Answer Date Recorded Patient Health Questionnaire-9 Score 14 11/02/2023 Patient Health Questionnaire-9 Score 14 11/02/2023 Last PHQ-9: Questionnaire Data Not on file 0 11/02/2023 Housing Stability Answer Date Recorded What is your housing situation today? I have april govea 10/26/[address] you li ve. Do you have problems with any of the following? None of the above 10/26/2023 Food Insecurity Answer Date Recorded Within the past 12 months, y ou worried that your food would run out before you got money to buy more: Never True 10/26/2023 Within the past 12 months,th e food you bought just didn't last and you didn't have enough money to get more: Never True 01/2024 Transportation Answer Date Recorded In the past 12 months, has l ack of transportation kept you from medical appts, meetings, work or from getting things needed for daily living? Yes, it has kept me from medical appointments or getting medications.;Yes, it has kept me from non-medical meetings, work, or getting things that I need 11/02/2023 Utilities Answer Date Recorded In the past 12 months, has t he electric, gas, oil or water company threatened to shut off services in your home? Yes 11/02/2023 Depression Answer Date Recorded Patient Health Questionnaire-2 Score 3 11/02/2023 Internet Access Answer Date Recorded Internet Access Q1 Yes 12/19/2023 Internet Access Q2 Not on file 12/19/2023 Comments Unknown Sex and Gender Information Value Date Recorded Sex Assigned at Female 02/15/2022 10:14 AM EDT Legal Sex Female 10:14 AM EDT Gender Identity Female 02/15/2022 10:14 AM EDT Sexual Orientation Straight 02/15/2022 10 :14 AM EDT documented as of this encounter Plan of Treatment Scheduled Referrals Name Type Priority Associated Diagnoses Order Schedule Referral to Physical Therapy Outpatient Referral Routine Lumbar radiculopathy Chronic left-sided low back pain with left-sided sciatica Expected: 07/18/2024 (Approximate), Expires: 07/18/2025 Referral to Occupational Therapy Outpatient Referral Routine Lumbar radiculopathy Chronic left-sided low back pain with left-sided sciatica Expected: 07/18/2024 (Approximate), Expires: 07/18/2025 documented as of this encounter Visit Diagnoses Diagnosis Lumbar radiculopathy- Primary Thoracic or lumbosacral neuritis or radiculitis, unspecified Chronic left-sided low back pain with left-sided sciatica documented in this encounter Additional Health Concerns Assessment Noted Time PHQ-9 Depression Total Score: 14 024 10:42 AM EDT documented as of this encounter Care Teams Meeting Coordinator Relationship Specialty Start Date End Date Juliet Adhikari MD [address] [place] [id number] PCP - General Internal Medicine 02/15/12 documented as of this encounter
--- OUTSIDE RECORDS SUMMARY | 2025-01-04 13:51 | XMS_ITS | Encounter Summary ---
Author Organization [employer] Address [address] [facility] [address] [address] Care Team Providers Care Horse Breeder Name Role Phone Juliet Adhikari MD Primary Care Provider [phone] Reason for Referral * Consultation (Routine) - Closed Specialty Diagnoses / Procedures Referred By Contac t Referred To Contact Pain Medicine Diagnoses Chronic left-sided low back pain with left-sided sciatica Lumbar radiculopathy Spinal stenosis of lumbar region without neurogenic claudication Juliet Adhikari MD [address] [place] [address] Phone: tel: fax: Daniel Cash MD [address] [place] [address] [address] [place] [address] Phone: tel: fax: Referral ID Status Reason Start Date Expiration Date V isits Requested Visits Authorized [id number] Closed Specialty Services Required 05/04/2024 05/04/2025 1 1 Encounter Details Date Type Department Care Team (Late st Contact Info) Description 05/04/2024 Orders Only [facility] CH[facility] MED & PEDS [address] [place], [place] [id number] Juliet Adhikari MD [address] [place] [phone] Chronic left-sided low back pain with left-sided sciatica (Primary Dx); Lumbar radiculopathy; Spinal stenosis of lumbar region without neurogenic claudication Social History Tobacco Use Types Packs/Day Years [...] Scheduled Referrals Name Type Priority Associated Diagnoses Orde r Schedule Referral to Pain Medicine Outpatient Referral Routine Chronic left-sided low back pain with left-sided sciatica Lumbar radiculopathy Spinal stenosis of lumbar region without neurogenic claudication Expected: 05/04/2024 (Approximate), Expires: 05/04/2025 documented as of this encounter Visit Diagnoses Diagnosis Chronic left-sided low back pain with left-sided sciatica- Primary Lumbar radiculopathy Thoracic or lumbosacral neuritis or radiculitis, unspecified Spinal stenosis of lumbar region without neurogenic claudication documented in this encounter Additional Health Concerns Assessment Noted Time PHQ-9 Depression Total Score: 14 024 10:42 AM EDT documented as of this encounter Care Teams Horse Breeder Relationship Specialty Start Date End Date Juliet Adhikari MD [address] [place] [id number] PCP - General Internal Medicine 02/15/12 documented as of this encounter
--- OUTSIDE RECORDS SUMMARY | 2025-01-04 13:51 | XMS_ITS | Clinical Summary ---
Author Organization [facility] Address [address] [place] [address] Phone Care Team Providers Care Window Air Conditioner Installer Name Role Phone Willis Pearl MD Primary Care Provider [phone]- [phone] Social History Tobacco Use Types Packs/Day Years Used Date Smoking Tobacco: Never Assessed Comments Unknown Sex and Gender Information Value Date Recorded Sex Assigned at Not on file Legal Sex Female 10:12 AM EST Gender Identity Not on file Sexual Orientation Not on file Plan of Treatment Upcoming Encounters Date Type Department Care Team (Late st Contact Info) Description 01/07/2025 2:30 PM EDT Office Visit Orthopedic Surgery - [address] [place] [address] Allyson Leon, JHON [address] [place] [address] Health Maintenance Due Date Last Done Comments Breast Cancer Screening 1965 DTaP,Tdap,and Td Vaccines (1 - Tdap) 09/29/1983 Cervical Cancer Screening: P ap Smear 1985 Pneumococcal Vaccine: 50+ Ye ars (1 of 1 - PCV) 2014 Zoster Vaccines (1 of 2) 2014 Depression Screening 04/18/2024 COVID-19 Vaccine (1 - 2023-2 5 season) 2024 Influenza Vaccine (#1) 2024 Colorectal Cancer Screening: Colonoscopy 12/27/2024 HIV Screening 12/27/2024 Hepatitis C Screening 12/27/2024 Social Influencers of Health Screening 12/27/2024 RSV Immunization Adult Patie nts (1 - 1-dose 75+ series) 09/29/2039 HIB Vaccines Aged Out No longer eligi ble based on patient's age to complete this topic HPV Vaccines Aged Out No longer eligi ble based on patient's age to complete this topic Hepatitis A Vaccines Aged Out No long er eligible based on patient's age to complete this topic Hepatitis B Vaccines Aged Out No long er eligible based on patient's age to complete this topic IPV Vaccines Aged Out No longer eligi ble based on patient's age to complete this topic MMR Vaccines Aged Out No longer eligi ble based on patient's age to complete this topic Meningococcal ACWY Vaccine Aged Out N o longer eligible based on patient's age to complete this topic Meningococcal B Vaccine Aged Out No l onger eligible based on patient's age to complete this topic RSV Immunization Patients Un myesha 20 months Aged Out No longer eligible b ased on patient's age to complete this topic Varicella Vaccines Aged Out No longer eligible based on patient's age to complete this topic Insurance MEDICAID [place] [id number] Care Teams Window Air Conditioner Installer Relationship Specialty Start Date End Date Willis Pearl MD [address] [place] [address] PCP - General 08/22/08
--- OUTSIDE RECORDS SUMMARY | 2025-01-04 13:52 | XMS_ITS | Encounter Summary ---
Author Organization [email or web address] Address [address] [facility] 7 [place] [address] Care Team Providers Care Video Intern Name Role Phone Juliet Adhikari MD Primary Care Provider [phone] Encounter Details Date Type Department Care Team ([facility] st Contact Info) Description 11/22/2022 Orders Only [facility] CHC MED & PEDS [address] [place], [place] [phone] Juliet Adhikari MD 505 [place] [address] Positive PPD (Primary Dx) Social History Tobacco Use Types Packs/Day Years Used Date Smoking Tobacco: Every Day Cigarettes Smokeless Tobacco: Never Alcohol Use Standard Drinks/Week Comments Not Currently 0 (1 standard drink = 0.6 oz pur e alcohol) Depression Answer Date Recorded Patient Health Questionnaire-9 Score 12 10/21/2022 Depression Answer Date Recorded Patient Health Questionnaire-2 Score 4 10/21/2022 Comments Unknown Sex and Gender Information Value Date Recorded Sex Assigned at Female 02/15/2022 10:14 AM EDT Legal Sex Female 10:14 AM EDT Gender Identity Female 02/15/2022 10:14 AM EDT Sexual Orientation Straight 02/15/2022 10 :14 AM EDT COVID-19 Exposure Response Date Recorded In the last 10 days, have yo u been in contact with someone who was confirmed or suspected to have Coronavirus/COVID-19? 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
--- OUTSIDE RECORDS SUMMARY | 2025-01-04 13:52 | XMS_ITS | Encounter Summary ---
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
--- OUTSIDE RECORDS SUMMARY | 2025-01-04 13:52 | XMS_ITS | Encounter Summary ---
Author Organization [employer] Address 75 [facility] 7 [place] [address] Care Team Providers Care Ui Designer Name Role Phone Juliet Adhikari MD Primary Care Provider [phone] Encounter Details Date Type Department Care Team ([facility] st Contact Info) Description 03/15/2023 Orders Only [facility] CHC MED & PEDS [address] [place], [place] [phone] Jluiet Adhikari MD 505 [place] [address] Acute vaginitis (Primary Dx) Social History Tobacco Use Types [...] as of this encounter Visit Diagnoses Diagnosis Acute vaginitis- Primary Unspecified vaginitis and vulvovaginitis documented in this encounter Additional Health Concerns Assessment Noted Time PHQ-9 Depression Total Score: 12 023 9:26 AM EDT documented as of this encounter Care Teams Ui Designer Relationship Specialty Start Date End Date Juliet Adhikari MD [address] [place] [address] PCP - General Internal Medicine 02/15/12 documented as of this encounter
--- OUTSIDE RECORDS SUMMARY | 2025-01-04 13:52 | XMS_ITS | Encounter Summary ---
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
--- OUTSIDE RECORDS SUMMARY | 2025-01-04 13:52 | XMS_ITS | Encounter Summary ---
Author Organization [employer] Address [address] [place] [address] Care Team Providers Care Pricing Strategist Name Role Phone Juliet Adhikari MD Primary Care Provider [phone] Reason for Visit * Reason Onset Date Comments FYI 03/16/2023 Encounter Details Date Type Department Care Team ([facility] Contact Info) Description 03/16/2023 Telephone [facility] CHC MED & PEDS [address] [place], [place] [phone] Juliet Adhikari MD [address] [place] [address] FYI Social History Tobacco Use Types Packs/Day Years [...] AM EDT documented as of this encounter Miscellaneous Notes * Telephone Encounter - Jaqueline Gustafson RN - 03/16/2023 9:40 AM EST Noted. Pt to f/u after discharge * Telephone Encounter - David Reno - 03/16/2023 9:27 AM EST Tc from pt calling to inform provider she is going to the emergency room due to stomach pains. documented in this encounter Plan of Treatment Not on file documented as of this encounter Visit Diagnoses Not on filedocumented in this encounter Additional Health Concerns Assessment Noted Time PHQ-9 Depression Total Score: 12 023 9:26 AM EDT documented as of this encounter Care Teams Pricing Strategist Relationship Specialty Start Date End Date Juliet Adhikari MD [address] [place] [address] PCP - General Internal Medicine 02/15/12 documented as of this encounter
--- OUTSIDE RECORDS SUMMARY | 2025-01-04 13:52 | XMS_ITS | Encounter Summary ---
Author Organization [facility] Address [address] [place] [address] 7 [place] [address] Care Team Providers Care Podiatric Medicine Professor Name Role Phone Juliet Adhikari MD Primary Care Provider [phone] Reason for Visit * Reason Onset Date Comments referral 11/02/2022 Encounter Details Date Type Department Care Team (Late st Contact Info) Description 11/02/2022 Telephone [facility] ADULT DENTAL [address] [place] [address] Elidia Arce, DDS [address] [place] [address] referral Social History Tobacco Use Types Packs/Day Years [...] PM EDT documented as of this encounter Miscellaneous Notes * Telephone Encounter - Anais Vergara - 11/02/2022 3:01 PM EDT Patient requested new referral to be sent in to Maxillofacial surgery in [place] because they got her in as an emergency appt for tomorrow 11/03 at 8:20am. Dr. Soler is currently no in office. Reached out to Dr. Nguyen and she agreed to send it in for patient. Patient has been informed that referral will be sent in. DR documented in this encounter Plan of Treatment Not on file documented as of this encounter Visit Diagnoses Not on filedocumented in this encounter Additional Health Concerns Assessment Noted Time PHQ-9 Depression Total Score: 12 023 9:26 AM EDT documented as of this encounter Care Teams Podiatric Medicine Professor Relationship Specialty Start Date End Date Juliet Adhikari MD [address] [place] [address] PCP - General Internal Medicine 02/15/12 documented as of this encounter
--- OUTSIDE RECORDS SUMMARY | 2025-01-04 13:52 | XMS_ITS | Encounter Summary ---
Author Organization [employer] Address 75 [facility] 7 [place] [address] Care Team Providers Care Bottom Buffer Name Role Phone Juliet Adhikari MD Primary Care Provider [phone] Reason for Visit * Reason Comments Med Refill Encounter Details Date Type Department Care Team ([facility] st Contact Info) Description 01/09/2024 Refill [facility] CHC MED & PEDS 505 [place], [place] [phone] Juliet Adhikari MD 505 [place], [place] [phone] Type 2 diabetes mellitus without complications (CMS/HCC) Social History Tobacco Use Types Packs/Day [...] as of this encounter Visit Diagnoses Diagnosis Type 2 diabetes mellitus without complications (CMS/HCC) documented in this encounter Additional Health Concerns Assessment Noted Time PHQ-9 Depression Total Score: 14 024 10:42 AM EDT documented as of this encounter Care Teams Bottom Buffer Relationship Specialty Start Date End Date Juliet Adhikari MD [address] [place] [address] PCP - General Internal Medicine 02/15/12 documented as of this encounter
--- OUTSIDE RECORDS SUMMARY | 2025-01-04 13:52 | XMS_ITS | Encounter Summary ---
Author Organization [facility] [employer] Address [address] [place] [address] [place] [address] Care Team Providers Care Nibbler Operator Name Role Phone Juliet Adhikari MD Primary Care Provider [phone] Reason for Visit * Reason Comments Med Refill Encounter Details Date Type Department Care Team ([facility] st Contact Info) Description 05/05/[address] [facility] CHC MED & PEDS [address] [place], [place] [phone] Juliet Adhikari MD [address] [place], [place] [phone] Type 2 diabetes mellitus with hyperglycemia (CMS/HCC) Social History Tobacco Use Types Packs/Day [...] Visit Diagnoses Diagnosis Type 2 diabetes mellitus with hyperglycemia (CMS/HCC) documented in this encounter Additional Health Concerns Assessment Noted Time PHQ-9 Depression Total Score: 12 023 9:26 AM EDT documented as of this encounter Care Teams Nibbler Operator Relationship Specialty Start Date End Date Juliet Adhikari MD [address] [place] [address] PCP - General Internal Medicine 02/15/12 documented as of this encounter
--- OUTSIDE RECORDS SUMMARY | 2025-01-04 13:52 | XMS_ITS | Encounter Summary ---
Author Organization [employer] Address 75 [facility] 7 [place] [address] Care Team Providers Care Labor Arbitrator Name Role Phone Juliet Adhikari MD Primary Care Provider [phone] Reason for Visit * Reason Onset Date Comments ER Follow-up 11/16/2023 Encounter Details Date Type Department Care Team ([facility] st Contact Info) Description 11/16/2023 Telephone [facility] MEDICINE 230 [place] [address] Juliet Adhikari MD 505 [place], [place] [phone] ER Follow-up Social History Tobacco Use Types Packs/Day Years [...] Recorded Patient Health Questionnaire-2 Score 3 11/02/2023 Comments Unknown Sex and Gender Information Value Date Recorded Sex Assigned at Female 02/15/2022 10:14 AM EDT Legal Sex Female 10:14 AM EDT Gender Identity Female 02/15/2022 10:14 AM EDT Sexual Orientation Straight 02/15/2022 10 :14 AM EDT documented as of this encounter Miscellaneous Notes * Telephone Encounter - Melvina Blanchard RN - 11/16/2023 11:37 AM EDT Triage call with [employer] Developer ID [id number] Pt was seen in [facility] ED 11/12/23 (report is on the chart). Pt dx is left sided low back pain with sciatica. Pt reports pain continues. Pt is taking flexeril 10mg tid prn with some effect. Advised to take tylenol/motrin also for the pain. Pt agrees. Pt denies injury, Bowel /bladder without difficulty, neg for fever, unable to stand/walk at this time due to pain. Pt is using ice and rest at this time.ED follow up apt with Dr. Manuel 11/22/23 at 1115am. Insurance is verified as active prior to booking. Pt agrees with disposition and home care reviewed. Protocol Used: Back Pain (Adult) Protocol-Based Disposition: See in Office or Video Visit within 2 Weeks Video visit not offered Positive Triage Question: * Back pain lasts > 2 weeks * All higher-acuity triage questions were negative Care Advice Discussed: * Reassurance and Education - Back Pain * Cold or Heat * Sleep * Activity * Pain Medicines * Pain Medicines - Extra Notes and Warnings * Reasons To Call Back - Fever occurs - Numbness or weakness occurs, or bowel/bladder problems - Pain begins to shoot into the leg - Pain persists over 2 weeks - Pain becomes worse - You become worse * Telephone Encounter - David Rowdy - 11/16/2023 11:00 AM EDT Patient calling to report ED visit on : Date: 11/11 [facility]: [facility] Seen for: Back Pain Symptom: Back Pain - Not From Injury Outcome: Talk to a nurse or provider within 15 minutes Reason: Can't walk (unless normally can't walk) documented in this encounter Plan of Treatment Not on file documented as of this encounter Visit Diagnoses Not on filedocumented in this encounter Additional Health Concerns Assessment Noted Time PHQ-9 Depression Total Score: 14 11/01/ 024 10:42 AM EDT documented as of this encounter Care Teams Labor Arbitrator Relationship Specialty Start Date End Date Juliet Adhikari MD [address] [place] [address] PCP - General Internal Medicine 02/15/12 documented as of this encounter
--- OUTSIDE RECORDS SUMMARY | 2025-01-04 13:52 | XMS_ITS | Encounter Summary ---
Author Organization [employer] Address 75 [facility] 7 [place] [address] Care Team Providers Care Regulatory Affairs Coordinator Name Role Phone Juliet Adhikari MD Primary Care Provider [phone] Reason for Visit * Reason Comments Med Refill Encounter Details Date Type Department Care Team ([facility] st Contact Info) Description 01/02/2024 Refill [facility] CHC MED & PEDS [address] [place], [place] [phone] Juliet Adhikari MD 505 [place], [place] [phone] Type 2 diabetes mellitus without complications (CMS/HCC) [...] documented as of this encounter Care Teams Regulatory Affairs Coordinator Relationship Specialty Start Date End Date Juliet Adhikari MD [address] [place] [address] PCP - General Internal Medicine 02/15/12 documented as of this encounter
--- OUTSIDE RECORDS SUMMARY | 2025-01-04 13:52 | XMS_ITS | Encounter Summary ---
Author Organization [employer] Address [address] [place] [address] Care Team Providers Care Butcher Helper Name Role Phone Juliet Adhikari MD Primary Care Provider [phone] Reason for Visit * Reason Comments Med Refill Encounter Details Date Type Department Care Team ([facility] st Contact Info) Description 01/08/2023 Refill [facility] CHC MED & PEDS [address] [place], [place] [phone] Juliet Adhikari MD [address] [place], [place] [phone] Social History Tobacco Use Types Packs/Day Years [...] documented as of this encounter Care Teams Butcher Helper Relationship Specialty Start Date End Date Juliet Adhikari MD [address] [place] [address] PCP - General Internal Medicine 02/15/12 documented as of this encounter
--- OUTSIDE RECORDS SUMMARY | 2025-01-04 13:52 | XMS_ITS | Encounter Summary ---
Author Organization [employer] Address [address] [place] [address] 7 [place] [address] Care Team Providers Care Laundry Bag Punch Operator Name Role Phone Juliet Adhikari MD Primary Care Provider [phone] Reason for Visit * Reason Comments Med Change Request Encounter Details Date Type Department Care Team ([facility] Contact Info) Description 05/12/2022 Refill [facility] CHC MED & PEDS [address] [place], [place] [phone] Juliet Adhikari MD 505 [place], [place] [phone] Diabetic nephropathy associated with type 2 diabetes [...] PM EST documented as of this encounter Miscellaneous Notes * Telephone Encounter - Madie Otero RN - 05/12/2022 10:02 AM EST RN spoke with pt who is c/o vaginal yeast infection x 3 weeks. States she used OTC medication with no good effect. Pt informed per PCP the reoccurrence is as a result of her high blood glucose but current antidiabetic medication may help manage the sugar level and resolve the reoccurrence of the yeast infection. Pt also advised on low carbohydrate diet. Pt states she doesn't have transportation in case PCP will like her to be seen and therefore will like to know if Rx can be sent to the pharmacy. Pt advised message will be sent to PCP regarding her request. Pt agrees to plan. documented in this encounter Plan of Treatment Not on file documented as of this encounter Visit Diagnoses Diagnosis Diabetic nephropathy associated with type 2 diabetes mellitus (CMS/[facility]) documented in this encounter Care Teams Laundry Bag Punch Operator Relationship Specialty Start Date End Date Juliet Adhikari MD [address] [place] [address] PCP - General Internal Medicine 02/15/12 documented as of this encounter
--- OUTSIDE RECORDS SUMMARY | 2025-01-04 13:52 | XMS_ITS | Encounter Summary ---
Author Organization [employer] Address [address] [place] [address] [place] [address] Care Team Providers Care Commercial Attache Name Role Phone Juliet Adhikari MD Primary Care Provider [phone] Reason for Visit * Reason Comments Med Change Request Encounter Details Date Type Department Care Team ([facility] Contact Info) Description 05/11/2022 Refill [facility] CHC MED & PEDS [address] [place], [place] [phone] Juliet Adhikari MD 505 [place], [place] [phone] Diabetic nephropathy associated with type 2 diabetes [...] (CMS/HCC) documented in this encounter Care Teams Commercial Attache Relationship Specialty Start Date End Date Juliet Adhikari MD [address] [place] [address] PCP - General Internal Medicine 02/15/12 documented as of this encounter
--- OUTSIDE RECORDS SUMMARY | 2025-01-04 13:52 | XMS_ITS | Encounter Summary ---
Author Organization [employer] Address 75 [facility] 7 [place] [address] Care Team Providers Care Appraisal Coordinator Name Role Phone Juliet Adhikari MD Primary Care Provider [phone] Reason for Visit * Reason Onset Date Comments Referral 07/29/2023 Encounter Details Date Type Department Care Team ([facility] st Contact Info) Description 07/29/2023 Telephone [facility] MEDICINE [address] [place] [address] Juliet Adhikari MD 505 [place], [place] [phone] Referral Social History Tobacco Use Types Packs/Day Years [...] encounter Miscellaneous Notes * Telephone Encounter - Delma Antonio - 07/29/2023 9:45 AM EDT [facility], stated pt told her wanted a check up due to colon cancer in the family. Any questions contact Jennifer [phone] documented in this encounter Plan of Treatment Not on file documented as of this encounter Visit Diagnoses Not on filedocumented in this encounter Additional Health Concerns Assessment Noted Time PHQ-9 Depression Total Score: 12 023 9:26 AM EDT documented as of this encounter Care Teams Appraisal Coordinator Relationship Specialty Start Date End Date Juliet Adhikari MD [address] [place] [address] PCP - General Internal Medicine 02/15/12 documented as of this encounter
--- OUTSIDE RECORDS SUMMARY | 2025-01-04 13:52 | XMS_ITS | Encounter Summary ---
Author Organization [employer] Address 75 [facility] 7t [place] [address] Care Team Providers Care C Software Engineer Name Role Phone Juliet Adhikari MD Primary Care Provider [phone] Encounter Details Date Type Department Care Team ([facility] st Contact Info) Description 11/02/2022 Telephone [facility] ADULT DENTAL [address] [place] [address] Jovan Soler, L[address] [place] [address] Social History Tobacco Use Types Packs/Day Years [...] documented as of this encounter Care Teams C Software Engineer Relationship Specialty Start Date End Date Juliet Adhikari MD [address] [place] [address] PCP - General Internal Medicine 02/15/12 documented as of this encounter
--- OUTSIDE RECORDS SUMMARY | 2025-01-04 13:52 | XMS_ITS | Encounter Summary ---
Author Organization [employer] Address [address] [facility] 7t [place] [address] Care Team Providers Care Cloth Finishing Range Operator Name Role Phone Juliet Adhikari MD Primary Care Provider [phone] Encounter Details Date Type Department Care Team ([facility] st Contact Info) Description 12/23/2023 Orders Only [facility] MED & PEDS [address] [place], [place] [phone] Juliet Adhikari MD [address] [place] [address] Lumbar radiculopathy (Primary Dx) Social History Tobacco Use Types [...] Type Priority Associated Diagnoses Orde r Schedule Drug Monitoring, Panel 1, Screen, Urine Lab Routine Lumbar radiculopathy Expected: 12/23/2023 (Approximate), Expires: 12/22/2024 documented as of this encounter Visit Diagnoses Diagnosis Lumbar radiculopathy- Primary Thoracic or lumbosacral neuritis or radiculitis, unspecified documented in this encounter Additional Health Concerns Assessment Noted Time PHQ-9 Depression Total Score: 14 024 10:42 AM EDT documented as of this encounter Care Teams Cloth Finishing Range Operator Relationship Specialty Start Date End Date Juliet Adhikari MD [address] [place] [phone] PCP - General Internal Medicine 02/15/12 documented as of this encounter
--- OUTSIDE RECORDS SUMMARY | 2025-01-04 13:52 | XMS_ITS | Encounter Summary ---
Author Organization [employer] Address [address] [facility] 7 [place] [address] Care Team Providers Care Pig Handler Name Role Phone Juliet Adhikari MD Primary Care Provider [phone] Encounter Details Date Type Department Care Team (Late st Contact Info) Description 05/07/2022 Orders Only [facility] MEDICINE [address] [place] [address] Juliet Adhikari MD [address] [place] [address] Type 2 diabetes mellitus with diabetic polyneuropathy, with long-term current use of insulin ([facility]) (Primary Dx) Social History Tobacco Use Types [...] on file documented as of this encounter Procedures Procedure Name Priority Date/Time Associated Diagnosis Comments HIGH SENSITIVITY TROPONIN I Routine 09/09/2022 2:33 PM EDT Type 2 diabetes mellitus with diabetic polyneuropathy, with long-term current use of insulin ([facility]) CBC WITH AUTO DIFFERENTIAL Routine 09/09/2022 2:33 PM EDT Type 2 diabetes mellitus with diabetic polyneuropathy, with long-term current use of insulin ([facility]) BASIC METABOLIC PANEL Routine 09/09/2022 2:33 PM EDT Type 2 diabetes mellitus with diabetic polyneuropathy, with long-term current use of insulin ([facility]) CBC WITH AUTO DIFFERENTIAL Routine 08/25/2022 7:28 PM EDT Type 2 diabetes mellitus with diabetic polyneuropathy, with long-term current use of insulin ([facility]) BASIC METABOLIC PANEL Routine 08/25/2022 7:28 PM EDT Type 2 diabetes mellitus with diabetic polyneuropathy, with long-term current use of insulin ([facility]) GLUCOSE, WHOLE BLOOD Routine 08/25/2022 7:21 PM EDT Type 2 diabetes mellitus with diabetic polyneuropathy, with long-term current use of insulin ([facility]) documented in this encounter Results * High Sensitivity Troponin I (09/09/2022 2:33 PM EDT) Pathologist [facility] TROPONIN I HIGH SENSITIVITY 4.4 <3.5 - 17.0 ng/L [facility] Comment:The Lux high sens itivity Troponin-I results should beused in conjunction with other diagnostic information suchas ECG, clinical observations and information, and patientsymptoms to aid in the diagnosis of LA. 09/09/2022 2:33 PM EDT 09/09/2022 2:37 PM EDT us [facility] External Provider LAB BLO OD ORDERABLES Final Result [facility] [address] [place] [phone] * (ABNORMAL) Basic Metabolic Panel (09/09/2022 2:33 PM EDT) Sodium 137 135 - 145 mmol/L [facility] Potassium 4.5 3.3 - 5.1 mmol/L [facility] Chloride 106 96 - 108 mmol/L [facility] Carbon Dioxide 22 22 - 29 mmol/L [facility] Anion Gap 14 12 - 20 [facility] Urea Nitrogen (BUN) 15 9 - 16 mg/dL [facility] Creatinine, Serum 1.08 0.5 - 1.4 mg/dL [facility] Creatinine Clr Calc Pharmacy 61.6 [facility] Comment:Provided height and weight: 162.56 cm,87.9 kg.eGFR (calculated from the MDRD study equation) and eCrCl(calculated from the Cockcroft-Gault equation) are based ondifferent parameters and may not yield comparable results.If eCrCl result is absurd, please check patient'sheight/weight. Estimated Glomerular Filt Rate 52 [facility] Comment:NOTE: For -Am erican individuals, multiply the result by 1.210.Chronic Kidney Disease: Estimated GFR < 60 mL/min/[id number] Kidney Disease: Estimated GFR < 15 mL/min/1.73m2 Glucose 398(HH) 60 - 115 mg/dL [facility] Comment:Critical value for G LUR: Results called to and read backby: SCIARUD Person calling: JAROD Date: 09/09/22 Time: 1457 Calcium 9.8 8.4 - 10.2 mg/dL [facility] 09/09/2022 2:33 PM EDT 09/09/2022 2:37 PM EDT us [facility] External Provider LAB BLO OD ORDERABLES Final Result [facility] [address] [place] [address] [phone] * (ABNORMAL) CBC auto differential (09/09/2022 2:33 PM EDT) White Blood Count 10.6 4.8 - 10.8 X10*3/uL [facility] Red Blood Count 4.58 4.20 - 5.50 X10*6/uL [facility] Hemoglobin 14.8 12.0 - 16.0 g/dl [facility] Hematocrit 43.1 37.0 - 47.0 % [facility] Mean Corpuscular Volume 94.1 80.0 - 98.0 fL [facility] Mean Corpuscular Hemoglobin 32.3 27.0 - 33.0 pg [facility] Mean Corpuscular HGB Conc 34.3 31.0 - 35.0 g/dl [facility] Red Cell Distribution Width 12.6 11.0 - 16.0 % [facility] Platelet Count 196 160 - 400 X10*3/uL [facility] Mean Platelet Volume 11.5 9.4 - 12.3 fL [facility] Neutrophils Percent Auto 67.8 45 - 73 % [facility] Imm Gran Pct Auto 0.6(H) 0.0 - 0.4 % [facility] Lymphocytes Percent Auto 23.2 20 - 40 % [facility] Monocytes Percent Auto 6.8 2 - 11 % [facility] Eosinophils Percent Auto 1.1 0 - 4 % [facility] Basophils Percent Auto 0.5 0 - 2 % [facility] NRBC Pct Auto 0.0 0.0 - 0.2 /100WBC [facility] Neutrophils Absolute Auto 7.2 2.0 - 8.3 x10*3/uL [facility] Imm Gran Abs Auto 0.06(H) 0.00 - 0.03 X10*3/uL [facility] Lymphocytes Absolute Auto 2.5 1.2 - 4.9 X10*3/uL [facility] Monocytes Absolute Auto 0.7 0.1 - 1.2 X10*3/uL [facility] Eosinophils Absolute Auto 0.1 0.0 - 0.4 X10*3/uL [facility] Basophils Absolute Auto 0.1 0.0 - 0.2 X10*3/uL [facility] NRBC Abs Auto 0.000 0.0 - 0.012 X10*3/uL [facility] 09/09/2022 2:33 PM EDT 09/09/2022 2:37 PM EDT us [facility] External Provider LAB BLO OD ORDERABLES Final Result [facility] [address] [place] [address] [phone] * (ABNORMAL) Basic Metabolic Panel (08/25/2022 7:28 PM EDT) Sodium 133(L) 135 - 145 mmol/L [facility] Potassium 4.4 3.3 - 5.1 mmol/L [facility] Chloride 103 96 - 108 mmol/L [facility] Carbon Dioxide 17(L) 22 - 29 mmol/L [facility] Anion Gap 17 12 - 20 [facility] Urea Nitrogen (BUN) 23(H) 9 - 16 mg/dL [facility] Creatinine, Serum 1.32 0.5 - 1.4 mg/dL [facility] Creatinine Clr Calc Pharmacy 52.6 [facility] Comment:Provided height and weight: 162.56 cm,95.254 kg.eGFR (calculated from the MDRD study equation) and eCrCl(calculated from the Cockcroft-Gault equation) are based ondifferent parameters and may not yield comparable results.If eCrCl result is absurd, please check patient'sheight/weight. Estimated Glomerular Filt Rate 41 [facility] Comment:NOTE: For -Am erican individuals, multiply the result by 1.210.Chronic Kidney Disease: Estimated GFR < 60 mL/min/[id number] Kidney Disease: Estimated GFR < 15 mL/min/1.73m2 Glucose 509(HH) 60 - 115 mg/dL [facility] Comment:Critical value for t est(s): GLUR Results called to and readback by: ROSANNA Person calling: JOSHUA Date: 08/25/22 Time:2018 Calcium 10.0 8.4 - 10.2 mg/dL [facility] 08/25/2022 7:28 PM EDT 08/25/2022 7:31 PM EDT us [facility] External Provider LAB BLO OD ORDERABLES Final Result [facility] [address] [place] [address] [phone] * CBC auto differential (08/25/2022 7:28 PM EDT) White Blood Count 9.1 4.8 - 10.8 X10*3/uL [facility] Red Blood Count 4.49 4.20 - 5.50 X10*6/uL [facility] Hemoglobin 14.2 12.0 - 16.0 g/dl [facility] Hematocrit 41.4 37.0 - 47.0 % [facility] Mean Corpuscular Volume 92.2 80.0 - 98.0 fL [facility] Mean Corpuscular Hemoglobin 31.6 27.0 - 33.0 pg [facility] Mean Corpuscular HGB Conc 34.3 31.0 - 35.0 g/dl [facility] Red Cell Distribution Width 12.4 11.0 - 16.0 % [facility] Platelet Count 182 160 - 400 X10*3/uL [facility] Mean Platelet Volume 11.7 9.4 - 12.3 fL [facility] Neutrophils Percent Auto 60.5 45 - 73 % [facility] Imm Gran Pct Auto 0.3 0.0 - 0.4 % [facility] Lymphocytes Percent Auto 28.8 20 - 40 % [facility] Monocytes Percent Auto 7.9 2 - 11 % [facility] Eosinophils Percent Auto 2.1 0 - 4 % [facility] Basophils Percent Auto 0.4 0 - 2 % [facility] NRBC Pct Auto 0.0 0.0 - 0.2 /100WBC [facility] Neutrophils Absolute Auto 5.5 2.0 - 8.3 x10*3/uL [facility] Imm Gran Abs Auto 0.03 0.00 - 0.03 X10*3/uL [facility] Lymphocytes Absolute Auto 2.6 1.2 - 4.9 X10*3/uL [facility] Monocytes Absolute Auto 0.7 0.1 - 1.2 X10*3/uL [facility] Eosinophils Absolute Auto 0.2 0.0 - 0.4 X10*3/uL [facility] Basophils Absolute Auto 0.0 0.0 - 0.2 X10*3/uL [facility] NRBC Abs Auto 0.000 0.0 - 0.012 X10*3/uL [facility] 08/25/2022 7:28 PM EDT 08/25/2022 7:31 PM EDT [facility] External Provider LAB BLO OD ORDERABLES Final Result Performing Organization Address City/[facility] Co de Phone Number [facility] [address] [place] [address] [phone] * (ABNORMAL) GLUCOSE, WHOLE BLOOD (08/25/2022 7:21 PM EDT) [facility] Signature Glucose, Whole Blood 481(HH) 60 - 115 mg/dL [facility] Comment:METER #: [id number] 1 08/25/2022 7:21 PM EDT 08/25/2022 7:25 PM EDT [facility] External Provider LAB BLO OD ORDERABLES Final Result Performing Organization Address [facility]/ZIP Co de Phone Number [facility] [address] [place] [address] [phone] documented in this encounter Visit Diagnoses Diagnosis Type 2 diabetes mellitus with diabetic polyneuropathy, with long-term current use of insulin ([facility])- Primary documented in this encounter Care Teams Pig Handler Relationship Specialty Start Date End Date Juliet Adhikari MD [address] [place] [id number] PCP - General Internal Medicine 02/15/12 documented as of this encounter
--- OUTSIDE RECORDS SUMMARY | 2025-01-04 13:52 | XMS_ITS | Encounter Summary ---
Author Organization [employer] Address [address] [facility] 7 [place] [address] Care Team Providers Care Online Merchandising Specialist Name Role Phone Juliet Adhikari MD Primary Care Provider [phone] Reason for Visit * Reason Onset Date Comments Nurse Triage 12/22/2023 Encounter Details Date Type Department Care Team ([facility] Contact Info) Description 12/22/2023 Telephone [facility] CHC MED & PEDS [address] [place], [place] [phone] Juliet Adhikari MD [address] [place] [address] Nurse Triage Social History Tobacco Use Types Packs/Day Years [...] encounter Miscellaneous Notes * Telephone Encounter - Juliet Adhikari MD - 12/23/2023 9:50 AM EDT I will write a small supply of pain medication but before doing that I will need a UTOX done in theoffice in order to avoid any interaction with other medication she is taking * Telephone Encounter - Sally Odom RN - 12/22/2023 2:27 PM EDT Called pt. She states that she has been having pain on her lower back and left leg pain. Pt. Has appt. At end of month with [facility] but pt. States she cannot walk and pain is 10'10. Pt. Has been taking Ibuprofen and Meloxicam with no good results. Pt states she was crying all nightlast night and was unable to sleep. Pt. Even applied lidocaine patches with no relief. Pt. Wants meto let PCP know that it is the same pain she had at last visit when he sent her to ED. Pt is looking for pain medication to get her through the month until she see's [facility]. Please advise and have [facility] nurse call pt. Back with decision. Pt. Declines Office visit today because she has to get Grandchildren off the bus. Protocol Used: Back Pain (Adult) Protocol-Based Disposition: See in Office or Video Visit within 3 Days Video visit offer not recorded Positive Triage Questions: * Pain radiates into the thigh or further down the leg * Back pain is a chronic symptom (recurrent or ongoing AND lasting > 4 weeks) * All higher-acuity triage questions were negative * Telephone Encounter - Yolie Ocampo - 12/22/2023 1:54 PM EDT Symptom: Back Pain - Not From Injury Outcome: Schedule an appointment to be seen within 3 days Reason: Caller denied all higher acuity questions The caller accepted this outcome documented in this encounter Plan of Treatment Not on file documented as of this encounter Visit Diagnoses Not on filedocumented in this encounter Additional Health Concerns Assessment Noted Time PHQ-9 Depression Total Score: 14 024 10:42 AM EDT documented as of this encounter Care Teams Online Merchandising Specialist Relationship Specialty Start Date End Date Juliet Adhikari MD [address] [place] [address] PCP - General Internal Medicine 02/15/12 documented as of this encounter
--- OUTSIDE RECORDS SUMMARY | 2025-01-04 13:52 | XMS_ITS | Encounter Summary ---
Author Organization [employer] Address [address] [facility] 7t [place] [address] Care Team Providers Care Occupational Health And Safety Manager Name Role Phone Juliet Adhikari MD Primary Care Provider [phone] Encounter Details Date Type Department Care Team ([facility] st Contact Info) Description 09/03/2024 Orders Only [facility] CHC MED & PEDS [address] [place], [place] [phone] Juliet Adhikari MD [address] [place] [address] Cyst, vulva (Primary Dx) Social History Tobacco Use Types [...] as of this encounter Visit Diagnoses Diagnosis Cyst, vulva- Primary Other specified noninflammatory disorder of vulva and perineum documented in this encounter Additional Health Concerns Assessment Noted Time PHQ-9 Depression Total Score: 14 024 10:42 AM EDT documented as of this encounter Care Teams Occupational Health And Safety Manager Relationship Specialty Start Date End Date Juliet Adhikari MD [address] [place] [phone] PCP - General Internal Medicine 02/15/12 documented as of this encounter
--- OUTSIDE RECORDS SUMMARY | 2025-01-04 13:52 | XMS_ITS | Encounter Summary ---
Author Organization [employer] Address [address] [place] [address] 7 [place] [address] Care Team Providers Care Deputy Chief Counsel Name Role Phone Juliet Adhikari MD Primary Care Provider [phone] Reason for Visit * Reason Onset Date Comments Med Refill Appointment 01/08/2023 [facility] Encounter Details Date Type Department Care Team ([facility] st Contact Info) Description 01/08/2023 Refill [facility]INE [address] [place] [address] Roman Cummings FNP Social History Tobacco Use Types Packs/Day Years [...] Miscellaneous Notes * Telephone Encounter - Madie Qureshi MA - 01/10/2023 10:48 AM EDT T/C placed to pt regarding her appt for today as [id number]. pt request to cancel and re-schedule, Pt r/s for 02/10/23. documented in this encounter Plan of Treatment Not on file documented as of this encounter Visit Diagnoses Not on filedocumented in this encounter Additional Health Concerns Assessment Noted Time PHQ-9 Depression Total Score: 12 023 9:26 AM EDT documented as of this encounter Care Teams Deputy Chief Counsel Relationship Specialty Start Date End Date Juliet Adhikari MD [address] [place] [address] [place] [address] PCP - General Internal Medicine 02/15/12 documented as of this encounter
--- OUTSIDE RECORDS SUMMARY | 2025-01-04 13:52 | XMS_ITS | Encounter Summary ---
Author Organization [employer] Address [address] [facility] 7 [place] [address] Care Team Providers Care Optical Laboratory Manager Name Role Phone Juliet Adhikari MD Primary Care Provider [phone] Reason for Visit * Reason Onset Date Comments Referral 11/01/2023 Encounter Details Date Type Department Care Team (Late st Contact Info) Description 11/01/2023 Telephone [facility] MEDICINE [address] [place] [address] Juliet Adhikari MD [address] [place], [place] [phone] Referral Social History Tobacco Use Types Packs/Day [...] is your housing situation today? I have [employer]rilm[employer] govea 10/26/[address] you [...] AM EDT documented as of this encounter Functional Status * Over the past 2 weeks, how often have you been bothered by any of the following problems? Question Answer Date of Assessment Author Patient Health Questionnaire -2 Score 3 11/02/2023 10:42 AM Pily Martinez [place] * If you checked off any problems on this questionnaire so far, Question Answer Date of Assessment Author How difficult have these problems made it for you to do your work, take care of things at home, or get along with other people? Somewhat difficult 11/02/2023 10:42 AM Pily Martinez [place] * Over the past 2 weeks, how often have you been bothered by any of the following problems? Question Answer Date of Assessment Author Little interest or pleasure in doing things Several days 11/02/2023 10:42 AM Pily Martinez MA Feeling down, depressed, or hopeless More than half the days 11/02/2023 10:42 AM Pily Martinez [place] Trouble falling or staying asleep, or sleeping too much Nearly every day 11/02/2023 10:42 AM Pily Martinez [place] Feeling tired or having little energy Several days 11/02/2023 10:42 AM Pily Martinez [place] Poor appetite or overeating Several days 11/02/2023 10:42 AM Pily Martinez [place] Feeling bad about yourself - or that you are a failure or have let yourself or your family down More than half the days 11/02/2023 10:42 AM Pily Martinez MA Trouble concentrating on things, such as reading the newspaper or watching television Several days 11/02/2023 10:42 AM Pily Martinez MA Moving or speaking so slowly that other people could have noticed? Or the opposite - being so fidgety or restless that you have been moving around a lot more than usual. Not at all 11/02/2023 10:42 AM Pily Martinez MA Thoughts that you would be better off or hurting yourself in some way Nearly every day 11/02/2023 10:42 AM Pily Martinez MA Patient Health Questionnaire-9 Score 14 11/02/2023 10:42 AM Pily Martinez MA documented as of this encounter Miscellaneous Notes * Telephone Encounter - Jaqueline Gustafson RN - 11/02/2023 9:43 AM EDT Pt has an appt today with PCP. Prior appt for HDF on 10/17/23, pt left without being seen. Referral can be placed today at appt. Will send FYI to PCP. * Telephone Encounter - Juan Pablo Cardoza - 11/01/2023 3:05 PM EDT Tc from the patients daughter calling to request the status of a referral for Cardiology states it was suppose to be put in on last appt after the patient had suffered a stroke documented in this encounter Plan of Treatment Not on file documented as of this encounter Visit Diagnoses Not on filedocumented in this encounter Additional Health Concerns Assessment Noted Time PHQ-9 Depression Total Score: 14 024 2:33 PM EDT documented as of this encounter Care Teams Optical Laboratory Manager Relationship Specialty Start Date End Date Juliet Adhikari MD [address] [place] [id number] PCP - General Internal Medicine 02/15/12 documented as of this encounter
--- OUTSIDE RECORDS SUMMARY | 2025-01-04 13:52 | XMS_ITS | Encounter Summary ---
Author Organization [employer] Address [address] [place] [id number] Care Team Providers Care Flour Worker Name Role Phone Juliet Adhikari MD Primary Care Provider [phone] Reason for Visit * Reason Onset Date Comments Nurse Triage 06/02/2023 Encounter Details Date Type Department Care Team ([facility] Contact Info) Description 06/02/2023 Telephone [facility] MED [facility] PEDS [address], [place] [id number] Juliet Adhikari MD [address] [place] [address] Nurse Triage Social History Tobacco Use Types [...] encounter Miscellaneous Notes * Telephone Encounter - Sally Odom RN - 06/02/2023 1:42 PM EST Called Pt. Daughter. Pt. Concerned about Positive TB test from 2 years ago via blood test accordingto pt. Daughter. 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 I see orders for CXR from 03/02/2022 and also 11/22/2022 but do not see results. There is a result from a CT scan that was done on the a bdomen from which did say that Lung bases showed: NO focal consolidation or Pleural effusion. Pt. Is concerned because she now has sinus sx. X 2 weeks With headache and productive cough and congestion. Pt. Daughter states that pt. Describes her mucous through her nose as green thick drainage,blood in nasal passages x 2 weeks. Appt. Made for 06/03/23 at 120pm in [facility] but will send this note to team nurses and PCP to make sure that CT scan result is enough to say that pt. Does not have TB even though blood test abnormal from 03/07/2022 lab draw for TB. Protocol Used: Sinus Pain or Congestion (Adult) Protocol-Based Disposition: Go to Office or Video Visit Now- Chandni declines appt. For today. Appt made for 06/03/23 at 120pm in [facility]. Video visit not offered Positive Triage Questions: * Severe sinus pain * Severe headache * Nasal discharge present > 10 days *thick green nasal discharge with blood mixed in. * Lots of coughing * All higher-acuity triage questions were negative Care Advice Discussed: * Reassurance and Education - Colds and Sinus Congestion * Nasal Washes for a Stuffy Nose * Nasal Washes - Rpli-Sz-Ltqg Instructions * Hydration * Telephone Encounter - Carmelita Wayne - 06/02/2023 1:14 PM EST Symptom: Sinus Symptoms Outcome: Schedule an urgent appointment (within 1 hour) or talk to a nurse or provider soon Reason: Severe headache The caller accepted this outcome Please contact pt at [phone] documented in this encounter Plan of Treatment Not on file documented as of this encounter Visit Diagnoses Not on filedocumented in this encounter Additional Health Concerns Assessment Noted Time PHQ-9 Depression Total Score: 12 023 9:26 AM EDT documented as of this encounter Care Teams Flour Worker Relationship Specialty Start Date End Date Juliet Adhikari MD [address] [place] [address] PCP - General Internal Medicine 02/15/12 documented as of this encounter
--- OUTSIDE RECORDS SUMMARY | 2025-01-04 13:52 | XMS_ITS | Encounter Summary ---
Author Organization [employer] Address [address] [facility] [address] [place] [address] Care Team Providers Care Irradiated Fuel Handler Name Role Phone Juliet Adhikari MD Primary Care Provider [phone] Reason for Visit * Reason Onset Date Comments Nurse Triage 08/29/2023 Encounter Details Date Type Department Care Team ([facility] Contact Info) Description 08/29/2023 Telephone [facility] MED & PEDS [address], [place] [phone] Juliet Adhikari MD [address] [place] [address] Nurse Triage Social History Tobacco Use Types [...] Telephone Encounter - Sally Odom RN - 08/29/2023 2:29 PM EDT Called pt. She states that her sensor for her diabetes has not been available to her through the pharmacy for months and she keeps getting the run around about it Pt. Is very upset. Pt. Has called PCP because she needs Insulin more often than monthly. She states that she has been using 42ux-36ux daily for insulin daily due to high blood sugar between 250-380.. Pt. Called PCP and PCP ordered threedifferent insulins to give 16ux three times a day and pt. States that she runs out early and has tochase down to get her insulin. Pt. Did have to go to [place] for a month at the last minute dueto a in the family Her father. Now pt. Got in from [place] last night and wants to get her insulin squared away with Shira and have Shira help her with getting the correct insulin needed. Pt. States that When she was seeing shira, Shira got everything under control and she was doing extremely well with keeping her blood sugars regulated and Shira was the best thing that ever happened to her for helping her with her Diabetes. Pt. Is requesting appt. With Darlin and would likeShira's nurse to call her back to schedule an appt. This am blood sugar was 380 according to pt. With thirst, frequent urination and a headache. Pt. States I'm tired of getting the run around and only shira knows what to do for me'. Pt states she has been drinking lots of water and has learnedall the ways to bring down her sugar through Shira teaching her. She states everything was under control when Shira was taking care of me and now my sugars are completely out of control because her PCP now has her on 3 diffeent insulins and has to inject 16ux three times a day prior to meals because the Pharmacy is not getting the medicine for her that Shira wanted her on . She says I can't get my sensor or my Tresiba that was doing wonderful and keeping my blood sugars at a good range.Pt. Is requesting call back from shira team for appt. With shira. * Telephone Encounter - Yolie Ocampo - 08/29/2023 2:18 PM EDT Symptom: High Blood Sugar - Caller Reports Outcome: Schedule an urgent appointment (within 1 hour) or talk to a nurse or provider soon Reason: Getting worse The caller accepted this outcome Would also like to discuss medications . documented in this encounter Plan of Treatment Not on file documented as of this encounter Visit Diagnoses Not on filedocumented in this encounter Additional Health Concerns Assessment Noted Time PHQ-9 Depression Total Score: 12 023 9:26 AM EDT documented as of this encounter Care Teams Irradiated Fuel Handler Relationship Specialty Start Date End Date Juliet Adhikari MD [address] [place] [id number] PCP - General Internal Medicine 02/15/12 documented as of this encounter
--- OUTSIDE RECORDS SUMMARY | 2025-01-04 13:52 | XMS_ITS | Encounter Summary ---
Author Organization [employer] Address [address] [facility] [address] [place] [address] Care Team Providers Care Benefit Authorizer Name Role Phone Juliet Adhikari MD Primary Care Provider [phone] Encounter Details Date Type Department Care Team (Late st Contact Info) Description 08/02/2023 Orders Only [facility] [address] [place] [address] Provider, MD Julee Social History Tobacco Use Types Packs/Day Years [...] Procedure Name Priority Date/Time Associated Diagnosis Comments XR CHEST 1 VIEW Routine 09/01/2023 2:20 PM EDT COLONOSCOPY Routine 02/24/2023 3:37 PM EST documented in this encounter Results * XR Chest 1 View (09/01/2023 2:20 PM EDT) Anatomical Region Laterality Modality Chest Radiographic Beth ging 09/01/2023 2:20 PM EDT Narrative 09/01/2023 3:51 PM EDT [address] [address] XRay Report Signed Patient: Jannet Alvarez MR#: [id number] : 1965 Acct:[id number] Age/Sex: 57 / F ADM Date: 09/01/23 Loc: HO.ED Attending Dr: Ordering Physician: Alexei Iniguez MD Date of Service: 09/01/23 Procedure(s): XR chest 1V Accession Number(s): [id number] cc: Juliet Adhikari MD; Alexei Iniguez MD EXAMINATION: XR CHEST CLINICAL INFORMATION: Chest pain COMPARISON: 09/09/2022 TECHNIQUE: Frontal view of the chest was obtained. FINDINGS: No significant abnormality is noted involving the heart, lungs, mediastinum, bony thorax or soft tissues. Calcified granuloma is noted at the right lung apex. XR/XR chest 1V IMPRESSION: Unremarkable examination. Dictated By: Mike Allen MD Signed By: <Electronically signed by Mike Allen MD in [place]> 09/01/23 1547 DD/ 1420 TD/TT: Pediatric Physical Therapy Assistant: SS Procedure Note Donotuseinterpreter, Image - 09/01/[address] [address] XRay Report Signed Patient: Jannet AlvarezMR#: [id number] : 1965Acct:[id number] Age/Sex: 57 / FADM Date: 09/01/23 Loc: HO.ED Attending Dr: Ordering Physician: Alexei Iniguez MD Date of Service: 09/01/23 Procedure(s): XR chest 1V Accession Number(s): [id number] cc: Juliet Adhikari MD; Alexei Iniguez MD EXAMINATION: XR CHEST CLINICAL INFORMATION: Chest pain COMPARISON: 09/09/2022 TECHNIQUE: Frontal view of the chest was obtained. FINDINGS: No significant abnormality is noted involving the heart, lungs, mediastinum, bony thorax or soft tissues. Calcified granuloma is noted at the right lung apex. XR/XR chest 1V IMPRESSION: Unremarkable examination. Dictated By: Mike Allen MD Signed By: <Electronically signed by Mike Allen MD in [place]> 09/01/23 1547 DD/ 1420 TD/TT: Pediatric Physical Therapy Assistant: BERYL [facility] External Provider IMG XR PROCEDURES Final Result * Colonoscopy (02/24/2023 3:37 PM EST) Anatomical Region Laterality Modality Endoscopy Historical Provider ENDOSCOPY PROCEDURE ORDER MAINE Final Result documented in this encounter Visit Diagnoses Not on filedocumented in this encounter Additional Health Concerns Assessment Noted Time PHQ-9 Depression Total Score: 12 10/21/ 023 9:26 AM EDT documented as of this encounter Care Teams Benefit Authorizer Relationship Specialty Start Date End Date Juliet Adhikari MD [address] [place] [address] PCP - General Internal Medicine 02/15/12 documented as of this encounter
--- OUTSIDE RECORDS SUMMARY | 2025-01-04 13:52 | XMS_ITS | Clinical Summary ---
Author Organization [employer] Address [address] [facility] 7[address] [place] [address] Care Team Providers Care Bunch Trimmer Mold Name Role Phone Juliet Adhikari MD Primary Care Provider [phone] Allergies Active Allergy Reactions Criticality Noted Date Comments Penicillins Rash Low 03/22/2022 Medications * This document contains information received from the source organization and may not represent a complete record from that organization. albuterol 108 (90 Base) MCG/ACT inhaler inhale 1 - 2 puff by inhalation route every 6 hours as needed 09/03/19 21 Active cholecalciferol (Vitamin D-3) 25 MCG (1000 UT) tablet Take 1 Tablet by Oral route once daily 10/24/19 22 Active aspirin 81 MG EC tablet 1 tablet by mouth once a day 08/22/19 22 Active insulin pen needle (pen needle, diabetic) 31G X 8 mm [facility] Ultra-Fine Short Pen Needle 31 gauge x 5/16 Active FreeStyle lancets 1 each by Other route 3 times daily. Test blood sugar three times a day. 100 each 11 11/26/19 23 Active ARIPiprazole (Abilify) 20 MG tablet Take 1 tablet (20 mg) by mouth Once per day. 90 tablet 3 09/22/19 24 Active hydrOXYzine HCl (Atarax) 50 MG tablet Take 1 tablet (50 mg) by mouth if needed at bedtime (sleep). 90 tablet 2 09/22/19 24 Active tiZANidine (Zanaflex) 4 MG tablet Take 1 tablet by mouth 3 times daily. 09/28/19 24 Active nicotine polacrilex (Nicorette) 2 MG gum CHEW 1 PIECE OF GUM EVERY HOUR NEEDED FOR NICOTINE CRAVINGS 09/28/19 24 Active Diclofenac Sodium 1 % gel Apply 4 g topically 4 times daily. Active nystatin (Mycostatin) creamIndications: Acute vaginitis APPLY TO AFFECTED AREA TWICE A DAY 30 g 01/06/20 24 Active lidocaine (Lidoderm) 5 % patchIndications: Lumbar radiculopathy APPLY 1 PATCH IN THE MORNING REMOVE AND DISARD PATCH WITHIN 12 HOURS OR DIRECTED 30 patch 2 01/06/20 24 Active insulin degludec (Tresiba FlexTouch) 200 UNIT/ML injectionIndicati ons:Type 2 diabetes mellitus with diabetic polyneuropathy, with long-term current use of insulin ([facility]) INJECT 84 UNIT SUBCUTANEOUSLY AT BEDTIME 15 mL 03/12/20 24 Active nicotine (Nicoderm, Step 1) 21 MG/24HR patchIndications: Smoking PLACE 1 PATCH ON THE SKIN 1 TIME EACH DAY AT THE SAME TIME. ROTATE PATCH SITE 28 patch 04/19/19 25 Active ibuprofen 600 MG tablet TAKE 1 TABLET BY MOUTH 3 TIMES DAILY. 90 tablet 04/19/19 25 Active amLODIPine (Norvasc) 5 MG tablet TAKE 1 TABLET BY MOUTH EVERY DAY 90 tablet 3 07/17/19 25 Active DULoxetine (Cymbalta) [address] capsuleIndication s:Lumbar radiculopathy,Corinne betic nephropathy associated with type 2 diabetes mellitus (CMS/HCC) Take 1 capsule (20 mg) by mouth 2 times daily. Do not crush or chew. 60 capsule 09/05/192025 Active Continuous Glucose Hydroelectric Plant Electrical Engineer (FreeStyle Kelle 3 Jefferson) deviceIndications :Type 2 diabetes mellitus with diabetic polyneuropathy, with long-term current use of insulin (CMS/HCC) 1 each Once per day. Use as directed for CGM 1 each 09/05/19 25 Active Continuous Glucose Sensor (FreeStyle Kelle 3 Plus Sensor) miscIndications:T ype 2 diabetes mellitus with diabetic polyneuropathy, with long-term current use of insulin (CMS/HCC) 1 each every 15 days. Apply 1 every 15 days as directed for CGM 2 each 09/05/19 25 Active rosuvastatin (Crestor) 20 MG tablet TAKE 1 TABLET BY MOUTH EVERYDAY AT BEDTIME 90 tablet 1 09/07/19 25 Active NovoLOG FLEXPEN 100 UNIT/ML penIndications:Ty pe 2 diabetes mellitus with diabetic polyneuropathy, with long-term current use of insulin ([facility]/HCC) INJECT 36-42 UNITS DEPENDING ON BLOOD GLUCOSE AND WHAT THEY ARE EATING 45 mL 3 10/04/19 25 Active gabapentin (Neurontin) 600 MG tabletIndications :Diabetic polyneuropathy associated with type 2 diabetes mellitus (CMS/HCC) Take 1 tablet (600 mg) by mouth 3 times daily. 90 tablet 12/22/19 25 2025 Active Elastic Bandages & Supports (Wrist Brace/Right Medium) miscIndications:C arpal tunnel syndrome of right wrist To wear daily 1 each 12/22/19 25 Active Continuous Glucose Hydroelectric Plant Electrical Engineer (FreeStyle Kelle 3 Jefferson) deviceIndications :Uncontrolled type 2 diabetes mellitus with hyperglycemia (CMS/HCC) 1 each Once per day. Use as directed for CGM 1 each 12/22/19 Active Continuous Glucose Sensor (FreeStyle Kelle 3 Plus Sensor) miscIndications:U ncontrolled type 2 diabetes mellitus with hyperglycemia (CMS/HCC) 1 each every 15 days. Apply 1 every 15 days as directed for CGM 2 each 12/22/19 Active gabapentin (Neurontin) 800 MG tabletIndications :Lumbar radiculopathy TAKE ONE TABLET BY MOUTH EVERY 12 hours 90 tablet 09/05/19 25 2024 Discontin ued(Dose adjustmen t) lidocaine-priloca ine (Emla) 2.5-2.5 % creamIndications: Paresthesias Apply topically 1 (one) time for 1 dose. 30 g 2 12/22/19 25 2024 Active Problems Problem Noted Date Diagnosed Date Moderately severe depression 01/01/2025 Assessment & Plan (01/02/2025 5:46 PM EDT): During IBH Consult Iris presenting with depressed mood, hopelessness, irritable mood, loss of interests/pleasure , sense of isolation/loneliness , isolating, change in appetite or weight reduce appetite, changes in sleep difficulty falling asleep and difficulty staying asleep , fatigue/loss of energy, difficulty concentrating, indecisiveness and Abnormally elevated mood, Decreased need for sleep, and Excessive goal directed activity; for a period of 18+ mo, for most or all symptoms in the context of illness or family illness and untreated mental health condition. Pt carries a diagnosis for Mood Dx per her medical chart. Today she presented with the sxs described above. Pt used to see Roman Cummings in the past for medication management and was doing well. Since then, Iris hasn't seen a prescriber. Her medical conditions (diabetes, high blood pressure and kidney disease) are leading to complications in her mental wellbeing. Pt with high irritability exacerbated by her chronic sleep problem. Diabetic polyneuropathy asso ciated with type 2 diabetes mellitus 12/21/2024 Non-ST elevation GA (NSTEMI) 11/02/2024 Spinal stenosis of lumbar re gion without neurogenic claudication 05/04/2024 FH: colon polyps 08/02/2023 Hx of colonic polyp 08/02/2023 Mood disorder 05/20/2022 Assessment & Plan (09/22/2023 4:41 PM EDT): presenting symptoms included prominent command auditory hallucinations; mood swings vs. irritability; Forgetful likely r/t distraction by internal stimuli. Differential includes Bipolar Disorder, Schizoaffective Disorder bipolar type, MDD severe with psychosis, PTSD, primary psychosis, organic brain damage (uncontrolled DM with multiple target organs affected, ?head injury r/t DV?, cardiovascular/cerebrovascular disease?), other? She had been doing much better emotionally, hallucinations completely controlled but then was lost to follow up and has been off medications. She is very depressed, not sleeping, with racing thoughts, but hallucinations have not recurred. Aripiprazole had been helpful and will now resume Aripiprazole 20 mg daily. Hydroxyzine 50 mg did not seem very helpful for sleep but she would like to try it again. Previous medication trials: Trazodone 150 mg was not helpful, Amitriptyline caused daytime drowsiness; Tylenol PM (ineffective). Since this provider will be retiring, patient will be transferred to new [facility] psychiatric prescriber. Patient is aware that appointments will be via televisit, and that the provider will not be an employee of [facility]. She gives verbal permission to share protected health information. Any issues or concerns call the health center. All her questions were answered and I have wished her well. She will also F/U with therapist as usual. She agrees with the plan. Assessment & Plan (10/21/2022 10:11 AM EDT): presenting symptoms included prominent command auditory hallucinations; mood swings vs. irritability; Forgetful likely r/t distraction by internal stimuli. Differential includes Bipolar Disorder, Schizoaffective Disorder bipolar type, MDD severe with psychosis, PTSD, primary psychosis, organic brain damage (uncontrolled DM with multiple target organs affected, ?head injury r/t DV?, cardiovascular/cerebrovascular disease?), other? Doing much better emotionally, hallucinations completely controlled. Also doing better physically: DM better controlled, has lost weight and SAULO improved. Still not sleeping well. Trazodone 150 mg was not helpful and pt has discontinued that. Previously tried Amitriptyline but it caused daytime drowsiness; Tylenol PM (ineffective). Will now have Hydroxyzine 50 mg at bedtime. Cautioned re dizziness/drowsiness. May need to consider Zolpidem or similar. Continue Abilify 15 mg daily. F/u with therapist. F/U with me in 6-8 weeks. She agrees with the plan. Assessment & Plan (05/20/2022 11:07 AM EST): presenting symptoms included prominent command auditory hallucinations; mood swings vs. irritability; Forgetful likely r/t distraction by internal stimuli. Differential includes Bipolar Disorder, Schizoaffective Disorder bipolar type, MDD severe with psychosis, PTSD, primary psychosis, organic brain damage (uncontrolled DM with multiple target organs affected, ?head injury r/t DV?, cardiovascular/cerebrovascular disease?), other? Doing much better, although not sleeping well. Increase now to Trazodone 150 mg at bedtime. Continue Abilify 15 mg daily. F/u with therapist. F/U with me in 2 months. She agrees with the plan. Chronic low back pain 05/10/2022 Lumbar radiculopathy 05/10/2022 Hypercholesterolemia 02/26/2022 Diabetic nephropathy associa lilibeth with type 2 diabetes mellitus 02/10/2021 Stage 2 chronic kidney disease 02/10/2021 Irritable bowel syndrome 01/17/2018 Encounters * This document contains information received from the source organization and may not represent a complete record from that organization. Date Type Department Care Team Description 12/21/2024 1:30 PM EDT Office Visit [facility] [address] [place] [address] Juliet Adhikari MD Paresthesias (Primary Dx); Diabetic polyneuropathy associated with type 2 diabetes mellitus (CMS/HCC); Carpal tunnel syndrome of right wrist; Uncontrolled type 2 diabetes mellitus with hyperglycemia (CMS/HCC); Mood disorder (CMS/HCC); Dietary counseling; Exercise counseling; Class 1 obesity due to excess calories with serious comorbidity and body mass index (BMI) of 32.0 to 32.9 in adult 12/21/2024 Refill [facility] [address] [place] [address] Juliet Adhikari MD Carpal tunnel syndrome of right wrist 12/21/2024 Travel 12/20/[address] [address] Juliet Adhikari MD Nurse Triage 11/21/2024 Telephone [facility] [address] [place] [address] Juliet Adhikari MD 11/06/2024 Telephone [facility] [address] [place] [address] Nury Wong MD No Show 11/05/2024 Telephone [facility] [address] [place] [address] Melina Recinos, PharmD 10/18/[address] [address] Juliet Adhikari MD 10/16/2024 Telephone [facility] [address] [place] [address] Juliet Adhikari MD Appointment Request from Last 3 Months Immunizations Immunization Administration Dates Next Due Hep B, adult 06/25/2002 Influenza injectable quadrivalent preservative f ree 03/31/2021 Pneumococcal Polysaccharide PPSV23 08/19/2010 Tdap 02/16/2011 Social History Tobacco Use Types Packs/Day Years Used Date Smoking Tobacco: Every Day Cigarettes Smokeless Tobacco: Never Tobacco Cessation:Ready to Q uit: Not Asked; Counseling Given: Not Answered Alcohol Use Standard Drinks/Week Comments Not Currently 0 (1 standard drink = 0.6 oz pur e alcohol) Depression Answer Date Recorded Patient Health Questionnaire-9 Score 20 01/02/2025 Patient Health Questionnaire-9 Score 20 01/02/2025 Last PHQ-9: Questionnaire Data Not on file 0 01/02/2025 Housing Stability Answer Date Recorded What is [...] Answer Date Recorded Patient Health Questionnaire-2 Score 6 01/02/2025 Internet Access Answer Date Recorded Internet Access Q1 Yes 12/19/2023 Internet Access Q2 Not on file 12/19/2023 Comments Unknown Sex and Gender Information Value Date Recorded Sex Assigned at Female 02/15/2022 10:14 AM EDT Legal Sex Female 10:14 AM EDT Gender Identity Female 02/15/2022 10:14 AM EDT Sexual Orientation Straight 02/15/2022 10 :14 AM EDT Last Filed Vital Signs Vital Sign Reading Time Taken Comments Blood Pressure 119/72 12/21/2024 1:20 PM EDT Pulse 100 12/21/2024 1:20 PM EDT Temperature 36.3 C (97.3 F) 12/21/2024 1:20 PM EDT Respiratory Rate 20 12/21/2024 1:20 PM EDT Oxygen Saturation 97% 12/21/2024 1:20 PM EDT Inhaled Oxygen Concentration - - Weight 85.7 kg (189 lb) 12/21/2024 1:20 PM EDT Height 162.6 cm (5' 4 ) 12/21/2024 1:20 PM EDT Body Mass Index 32.44 12/21/2024 1:20 PM EDT Plan of Treatment Health Maintenance Due Date Last Done Comments CT Colonography 1964 Dental Prophylaxis 1964 Dental X-Ray: Bitewings 1964 FIT DNA/Cologuard 1964 FIT 1964 FOBT 1964 HIV Screening 1964 Sigmoidoscopy 1964 Disability Screening 1964 Diabetes: Foot Exam 1974 Eye Exam 1974 Alcohol/Substance Use Screening 1976 Hepatitis C Screening 1982 Hepatitis B Vaccines (2 of 3 - 19+ 3-dose series) 07/23/2002 06/25/2002 Mammogram 2004 Pneumococcal Vaccine: 50+ Years (2 of 2 - PCV) 08/20/2011 08/19/2010 Zoster Vaccines (1 of 2) 2014 DTaP/Tdap/Td Vaccines (2 - Td or Tdap) 02/16/2021 02/16/2011 Dental Oral Exam 10/25/2022 04/26/2022 Lipid Panel 02/25/2023 02/25/2022 Pap Smear 09/03/2023 09/02/2020 RSV Patients and Patients Aged 60 years or older (1 - Risk 60-74 years 1-dose series) 2024 SDOH Screening 11/01/2024 11/02/2023 COVID-19 Vaccine (3 - 2024- season) 2024 03/31/2021, 01/10/2021 Influenza Vaccine (#1) 2024 03/31/2021 Diabetes: Hemoglobin A1C 03/22/2025 025, 09/04/2024, 11/02/2023, Additional history exists Dental X-Ray: Full Mouth 04/27/2025 04/26/2022 Depression Monitoring 07/02/2025 01/02/2025, 025 Cervical Cancer Screening 09/02/2025 HPV/Cotest 09/02/2025 09/02/2020 Tobacco Screening 12/21/2025 12/21/2024 Colonoscopy 02/25/2028 02/24/2023, 02/25/2016 Colorectal Cancer Screening 02/25/2028 HIB Vaccines Aged Out No longer eligi [...] patient's age to complete this topic Meningococcal Vaccine Aged Out No ace ileana eligible based on patient's age to complete this topic RSV under 20 months Aged Out No longe r eligible based on patient's age to complete this topic Rotavirus Vaccines Aged Out No longer eligible based on patient's age to complete this topic Procedures Procedure Name Priority Date/Time Associated Diagnosis Comments POCT GLUCOSE Routine 12/21/2024 2:45 PM EDT Diabetic polyneuropathy associated with type 2 diabetes mellitus (CMS/HCC) Uncontrolled type 2 diabetes mellitus with hyperglycemia (CMS/HCC) POCT GLYCATED HEMOGLOBIN, TOTAL Routine 12/21/2024 2:44 PM EDT Diabetic polyneuropathy associated with type 2 diabetes mellitus (CMS/HCC) Uncontrolled type 2 diabetes mellitus with hyperglycemia (CMS/HCC) COLONOSCOPY Routine 02/24/2023 3:37 PM EST PANORAMIC RADIOGRAPHIC IMAGE Routine 04/26/2022 1:00 PM EST COMPREHENSIVE ORAL EVALUATION - NEW OR ESTABLISHED PATIENT Routine 04/26/2022 1:00 PM EST LIPID PANEL, STANDARD Routine 02/25/2022 11:34 AM EST HPV MRNA E6/E7 Routine 09/02/2020 1:57 PM EDT THINPREP PAP Routine 09/02/2020 1:57 PM EDT from Last 3 Months or Most Recently Relevant to Health Maintenance Results * (ABNORMAL) POCT Glucose (12/21/2024 2:45 PM EDT) [facility] Glucose Blood, POC 227(A) 60 - 200 mg/dL QC Media Lot # [id number] Lot# Expiration Date Comment:random Blood Capillary blood specimen / Unknown 12/21/2024 2:45 PM EDT Juliet Adhikari MD POINT OF CARE TEST ENTER/ED IT ORDERABLES Final Result * (ABNORMAL) POCT Hgb A1c (12/21/2024 2:44 PM EDT) [facility] Hemoglobin A1C 10.0(A) 4.0 - 5.7 % QC Media Lot # [id number] Lot# Expiration Date Blood 12/21/2024 2:44 PM EDT Juliet Adhikari MD POINT OF CARE TEST ENTER/ED IT ORDERABLES Final Result * Colonoscopy (02/24/2023 3:37 PM EST) Anatomical Region Laterality Modality Endoscopy Historical Provider ENDOSCOPY PROCEDURE ORDER MAINE Final Result * (ABNORMAL) LIPID PANEL, STANDARD (02/25/2022 11:34 AM EST) [facility] Chol/HDLC Ratio 5.5(H) <5.0 (calc) [facility] Cholesterol, Total 249(H) <200 mg/dL [facility] HDL Cholesterol 45(L) > OR = 50 mg/dL [facility] LDL Cholesterol 145(H) mg/dL (calc) [facility] Comment: Reference range: <100 Desirable range <100 mg/dL for primary prevention; <70 mg/dL for patients with CHD or diabetic patients with > or = 2 CHD risk factors. LDL-C is now calculated using the Lex-Zelaya calculation, which is a validated novel method providing better accuracy than the Friedewald equation in the estimation of LDL-C. Lex SS et al. NEVAEH. 2013;310(19): 1816-6249 (http://education.[employer]/faq/KIQ972) Non-HDL Cholesterol 204(H) <130 mg/dL (calc) [facility] Comment: For patients with diabetes plus 1 major ASCVD risk factor, treating to a non-HDL-C goal of <100 mg/dL (LDL-C of <70 mg/dL) is considered a therapeutic option. Triglycerides 383(H) <150 mg/dL [facility] Comment: If a non-fasting specimen was collected, consider repeat triglyceride testing on a fasting specimen if clinically indicated. Vernon et al. J. of Clin. Lipidol. 2015;9:129-169. 02/25/2022 11:3 4 AM EST Juliet Adhikari MD LAB BLOOD ORDERABLES Final Result [facility] * THINPREP PAP (09/02/2020 1:57 PM EDT) Clinical Information: None given [facility] COMMENT SEE COMMENT [facility] Comment: EXPLANATORY NOTE: The Pap is a screening test for cervical cancer. It is not a diagnostic test and is subject to false negative and false positive results. It is most reliable when a satisfactory sample, regularly obtained, is submitted with relevant clinical findings and history, and when the Pap result is evaluated along with historic and current clinical information. Travel Service Consultant : SEE COMMENT [facility] Comment: DCR, CT(ASCP) CT screening location: [place] [address] Infection Shift in vaginal allie suggestive of bacterial vaginosis. [facility] Interpretation/R esult: Negative for intraepithelial lesion or malignancy. [facility] LMP: NONE GIVEN [facility] Prev. BX: NONE [facility]IV[facility] Prev. PAP: NONE [facility]IVEN [facility] SOURCE: None given [facility] Statement Of Adequacy: SEE COMMENT [facility] Comment: Satisfactory for evaluation. Endocervical/transformation zone component absent. Age and/or menstrual status not provided 09/02/2020 1:57 PM EDT Kylee DE [facility] LAB PATHOLOGY ORDERABLES Final Result Performing Organization Address [facility] Co de Phone Number [facility] [address] * HPV mRNA E6/E7 (09/02/2020 1:57 PM EDT) HPV nRNA E6/E7 Not Detected Not Detected [facility] Comment: Methodology: Promotion Manager-Mediated Amplification This assay detects E6/E7 viral messenger RNA (mRNA) from 14 high-risk HPV types (16,18,31,33,35,39,45,51,52,56,58,59,66,68). The analytical performance characteristics of this assay have been determined by [employer]. The modifications have not been cleared or approved by the FDA. This assay has been validated pursuant to the CLIA regulations and is used for clinical purposes. For additional information, please refer to http://education.[employer]/faq/XQZ278r0 (This link if provided for information/ educational purposes only.) 09/02/2020 1:57 PM EDT Kylee [facility] LAB BLOOD ORDERABLES Colleen l Result Performing Organization Address [facility] de Phone Number [facility] [address] from Last 3 Months or Most Recently Relevant to Health Maintenance Insurance [facility] ONE CARE < 65 [facility] MED[facility] STAND ADULT Care Teams Bunch Trimmer Mold Relationship Specialty Start Date End Date Juliet Adhikari MD [address] [place] [address] [place] [address] PCP - General Internal Medicine 02/15/12
--- OUTSIDE RECORDS SUMMARY | 2025-01-04 13:52 | XMS_ITS | Encounter Summary ---
Author Organization [employer] Address [address] [facility] [address] [place] [address] Care Team Providers Care Lead Tinner Name Role Phone Juliet Adhikari MD Primary Care Provider [phone] Encounter Details Date Type Department Care Team ([facility] st Contact Info) Description 02/04/2023 Abstract [facility] [address] [place] [address] Juliet Adhikari MD [address] [place] [address] Social History Tobacco Use Types Packs/Day Years [...] Procedure Name Priority Date/Time Associated Diagnosis Comments COLONOSCOPY Routine 02/25/2016 documented in this encounter Results * Colonoscopy (02/25/2016) Colonoscopy Normal Normal Narrative Ashanti Davila - 02/25/2016 Five year follow up due to sessile serrated polyp us Historical Provider HEALTH MAINTENANCE Final Result documented in this encounter Visit Diagnoses Not on filedocumented in this encounter Additional Health Concerns Assessment Noted Time PHQ-9 Depression Total Score: 12 023 9:26 AM EDT documented as of this encounter Care Teams Lead Tinner Relationship Specialty Start Date End Date Juliet Adhikari MD [address] [place] [address] PCP - General Internal Medicine 02/15/12 documented as of this encounter
--- OUTSIDE RECORDS SUMMARY | 2025-01-04 13:52 | XMS_ITS | Encounter Summary ---
Author Organization [employer] Address [address] [facility] [address] [place] [address] Care Team Providers Care Primary School Teacher Name Role Phone Juliet Adhikari MD Primary Care Provider [phone] Reason for Visit * Reason Comments Med Change Request Encounter Details Date Type Department Care Team ([facility] Contact Info) Description 12/21/2024 Refill [facility] [address] [place], [place] [phone] Juliet Adhikari MD [address] [place], [place] [phone] Carpal tunnel syndrome of right wrist Social History Tobacco Use Types Packs/Day Years [...] as of this encounter Visit Diagnoses Diagnosis Carpal tunnel syndrome of right wrist documented in this encounter Additional Health Concerns Assessment Noted Time PHQ-9 Depression Total Score: 14 024 10:42 AM EDT documented as of this encounter Care Teams Primary School Teacher Relationship Specialty Start Date End Date Juliet Adhikari MD [address] [place] [address] PCP - General Internal Medicine 02/15/12 documented as of this encounter
--- NOTE | 2025-01-04 14:00 | A.OFFVIS_ITS ---
Vital Signs 01/04/25 14:04 Height 5 ft 4 in Weight 190 lb 0.615 oz BMI 32.6 BP 108/62 Blood Pressure Location Lt brachial Position Sitting Pulse 99 Pulse Source Pulse Oximeter Pulse Oximetry (%) 96 Oxygen Delivery Method Room Air Intake Visit Reasons: T2DM Intake Note: New patient present today for T2DM. Last Diabetic Eye exam: Due Last Podiatry Visit: Does not see a Golf Teacher Random Glucose: 412 mg/dl Hgb A1C: 9.4% 01/04/2025 Leasing Machine Tender Required: No Accompanied by: Daughter Allergies penicillin V Allergy (Unknown, Verified 01/04/25 14:06) Hives Penicillins Allergy (Unknown, Verified 01/04/25 14:06) HIVES adhesive Allergy (Verified 01/04/25 14:06) Rash Medication List - Last Reconciled 01/04/25 by Travon Pang MD amlodipine 5 mg PO DAILY aripiprazole 15 mg PO DAILY aspirin 81 mg PO DAILY atorvastatin 80 mg PO BEDTIME blood sugar diagnostic (FreeStyle Lite Strips) As directed four times a day blood-glucose sensor (FreeStyle Kelle 3 Sensor device) To be changed every 15 days. clopidogrel 75 mg PO DAILY diclofenac sodium 1% 4 grams topical QID PRN duloxetine 20 mg PO BID gabapentin 800 mg PO TID PRN glucagon 3 mg/actuation (Baqsimi) 3 mg intranasal ONCE ibuprofen 600 mg PO Q8H PRN insulin aspart U-100 (Novolog FlexPen U-100 Insulin aspart) 32 - 38 units (0.32 - 0.38 mL) subcut TIDWM insulin degludec (Tresiba FlexTouch U-200 insulin) 88 units (0.44 mL) subcut BEDTIME lidocaine 4% (Lidocaine Pain Relief) 1 patch See Protocol transdermal DAILY morphine 2 mg See Protocol IVPUSH Q4H PRN omeprazole 40 mg PO DAILY PRN oxycodone 5 mg PO Q6H PRN oxycodone 5 mg PO BID PRN rosuvastatin 20 mg PO BEDTIME tizanidine 2 mg PO TID PRN HPI Comments Details: Past medical history type 2 diabetes with neuropathy, chronic low back pain, bipolar 1 disorder, coronary artery disease. Patient was previously seen in our office on 04/16/2021 and was then followed by PCP. Despite the changes that were introducing the last visit in 2020, patient continued to have uncontrolled diabetes, and is referred back to us for evaluation. She reports multiple medical problems, I may concern for obesity is to help control her blood sugars. Not using sensor, for the last 6 months. Uses glucometer but not checking BG, only when she feels she is high or low. She estimates her insulin dosing based in what she eats, not in premeal BG. Reports low 1-2 times per week, generally from 7-11pm. She reports weight ~ 20 lbs Current medications Tresiba 88 units nightly and NovoLog 32-38 units depending on blood glucose and what they eat, gabapentin 600 mg TID daily and duloxetine 20mg BID She tried Trulicity in the past but did tolerated it (nausea/constipation), she also tried metformin but she developed diarhea. She was diagnosed with gastroparesis. She reports smoking MJ but now more sporadic as it increases her appetite. Diet: she eats carb-rich meals, no juice, but drinks soda. Exercise: does not formally exercises but performs all home tasks PE General: Well appearing. NAD. Neck/Thyroid: Thyroid obviously enlarged Eyes: No conjunctival injection, not lid lag or proptosis CV: Not lower extremity edema. 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 DM2 (diabetes mellitus, type 2) Depressed Anxiety Bipolar 1 disorder Diabetes 1.5, managed as type 1 Surgical History H/O adenoidectomy History of tubal ligation History of cholecystectomy History of partial hysterectomy History of dental surgery Social History Household Members: Children Household Members Other:: daughter Housing: Apartment Do you presently have visiting nurse or other home services: No Alcohol intake: current Alcohol intake frequency: holidays/special occasions only Alcohol type: wine Patient Tobacco Use Status: Current everyday Tobacco user Tobacco use type: Cigarette Cigarettes Per Day: 20 e-Cigarette/Vaping Use: Never Used Second Hand Smoke Exposure: Yes Substance Use Type: Marijuana service: No Current occupational status: disabled Physical Exam Vital Signs: Last Vital Signs Pulse 99 01/04/25 14:04 BP 108/62 01/04/25 14:04 Pulse Ox 96 01/04/25 14:04 Oxygen Delivery Method Room Air 01/04/25 14:04 BMI result Body Mass Index 32.6 Results AMB Hemoglobin A1c AMB Hemoglobin A1c 9.4 % Last Edit by RANDEE Gary on 01/04/25 14:28 Results Reviewed Results Reviewed: Laboratory Last Values Glucose (Clinic) 412 mg/dL (60-115) H* 01/04/25 14:17 Hgb A1c (Clinic) 9.4 % (4.0-6.0) H 01/04/25 14:23 Assessment & Plan Assessment & Plan (1) Type 2 diabetes mellitus with diabetic neuropathy, with long-term current use of insulin: Code(s): E11.40 - Type 2 diabetes mellitus with diabetic neuropathy, unspecified; Z79.4 - remote computer terminal operator (current) use of insulin Category: Medical Plan Assessment Uncontrolled type 2 diabetes with multiple complications including diabetic neuropathy and gastroparesis and a setting of diet noncompliance. Her previous intolerance to Tresiba and a history of gastroparesis a contraindications for GLP-1 out his therapy, which would have had significant benefits in this case including improving glycemic control as well as helping with weight loss. If she is found to has significant nephropathy, I would likely add Jardiance. Unfortunately her neuropathy and gastroparesis are unlikely to improve despite glycemic control, but it will slow the progression of both of these c omplications, and improve her quality of life Plan Given lack of glucose data to evaluate, we will defer adjusting her Tresiba doses until next time We provide sliding scale to use for her pre meal insulin dosing as opposed to fixed dose (see sliding scale below) Extensive education in regards to complications of diabetes We discussed in detail management of hypoglycemia Handout for dietary recommendation from diabetes and hypoglycemia management provided We discussed in detail the need for checking blood sugars frequently, and checking blood sugars prior to meals to base insulin dose on the blood sugar values Sample of wrist tightly with you was provided, and a prescription was sent to her preferred pharmacy Bariatric surgery was offered as a possibility to explored in the future We will order lipid panel, BMP and urine microalbumin to assess for other complications We will follow-up in 3 months Orders: Orders AMB Hemoglobin A1c Today E11.65 - Type 2 diabetes mellitus with hyperglycemia Basic Metabolic Panel Today E11.40 - Type 2 diabetes mellitus with diabetic neuropathy, unspecified, Z79.4 - remote computer terminal operator (current) use of insulin Lipid Panel Today E11.40 - Type 2 diabetes mellitus with diabetic neuropathy, unspecified, Z79.4 - remote computer terminal operator (current) use of insulin Microalbumin, Random (w Creat) Today E11.40 - Type 2 diabetes mellitus with diabetic neuropathy, unspecified, Z79.4 - intermediate (current) use of insulin Medications: New blood-glucose sensor (FreeStyle Kelle 3 Sensor device) To be changed every 15 days. 2 ea 3RF E11.40 - Type 2 diabetes mellitus with diabetic neuropathy, unspecified, Z79.4 - intermediate (current) use of insulin insulin aspart U-100 (Novolog FlexPen U-100 Insulin aspart) 32 - 38 units (0.32 - 0.38 mL) subcut TIDWM 30 mL 0RF E11.40 - Type 2 diabetes mellitus with diabetic neuropathy, unspecified, Z79.4 - intermediate (current) use of insulin insulin degludec (Tresiba FlexTouch U-200 insulin) 88 units (0.44 mL) subcut BEDTIME 18 mL 3RF E11.40 - Type 2 diabetes mellitus with diabetic neuropathy, unspecified, Z79.4 - remote computer terminal operator (current) use of insulin glucagon 3 mg/actuation (Baqsimi) 3 mg intranasal ONCE 1 ea 2RF Patient Instructions: Continue Tresiba 88 units nightly Insulin Dose (units) ? Take 10?15 minutes prior to the meal Blood Sugar Level (mg/dl) Small Meal?(low carb <30g like salad, eggs with meat) Normal Meal?(30?60g like sandwich, chips, meat, small starch portion) Large Meal?(>60g like pizza, lasagna, Mongolian food, meal + dessert) <100 2 4 6 101?150 4 8 10 151?200 6 12 14 201?250 8 16 18 251?300 10 18 20 301?350 12 20 24 351?400 14 22 26 >400 16 24 28 Gu?a de Alimentaci?n para la Diabetes Tipo 2 (Recomendaciones basadas en la ADA) Mejores Opciones ([place] con Frecuencia) * Verduras sin almid?n: br?coli, espinaca, anthony, pimientos, pepino, calabac?n, ejotes, coliflor. * Granos integrales: florin, arroz integral, quinoa, fields/pasta integral, cebada. * Prote?humera magras: briseida, pavo, pescado, huevo, tofu, frijoles, lentejas. * Grasas saludables: aceite de mendes, aguacate, nueces, semillas, salm?n, at?n, eugene. * Frutas (porciones arlyn?as): bayas, manzana, narjomarja, paulie, durazno. * Bebidas: agua, agua mineral sin az?car, t? sin az?car, caf? mary lou. Limitar ([place] Ocasionalmente) * Almidones: arroz hanna, fields hanna, bassam, ma?z, pasta (porciones arlyn?as). * Frutas altas en az?car: pl?kayla, uvas, pi?a, alanis (en porciones arlyn?as). * L?cteos: leche baja en grasa, yogur natural sin az?car (evitar sabores/az?car a?adido). Evitar ([place]ty V[place] o Nunca) * Bebidas azucaradas: refrescos, jugos, caf?/t? endulzado. * Fritos, botanas procesadas, pasteles, dulces. * Brittani procesadas: tocino, salchichas, jam?n, embutidos. * L?cteos altos en grasa y mantequilla. Consejos para las Comidas * Llena ? plato con verduras, ? plato con prote?na magra, ? plato con grano integral/almid?n. * [place]: 40?60 g de carbohidratos por comida (individualizado). * Se puede agregar cecilia fruta arlyn?a. * Usa hierbas, burns?n o vinagre en lugar de cindy. Linette Simple: ?Come principalmente verduras, prote?humera magras, granos integrales y grasas saludables. Limita los almidones y dulces. Maia bebidas azucaradas y frituras.? Entendiendo y Tratando la Hipoglucemia (Az?car Baja en la S[place]) (Para personas con diabetes que usan insulina o ciertos medicamentos) ?Qu? es la Hipoglucemia? * Hipoglucemia = az?car en la suleman <70 mg/dL. * Puede ocurrir si se usa demasiada insulina/medicamento, si se salta o retrasa cecilia comida, si hace m?s ejercicio de lo habitual o si rebecca alcohol. S?ntomas Comunes * Temblor, sudor, palpitaciones r?pidas * viri Linares, shannon de jhonatan * Irritabilidad, confusi?n, dificultad para concentrarse * Casos graves: visi?n borrosa, dificultad al hablar, convulsiones, p?rdida de conciencia La Lin[place] del 15?15 (C?mo Tratar) * Revise horn az?car si es posible. * Si <70 mg/dL: Consuma 15 gramos de carbohidratos de acci?n r?pida, gamal: * 4 tabletas de glucosa * 1 tubo de gel de glucosa * 120 ml (? taza) de jugo o refresco normal (no diet?tracey) * 1 cucharada de az?car o miel * Espere 15 minutos, carlozo deniseelva a revisar horn az?car. * Si sigue <70 mg/dL ? repita 15 g de carbohidratos. * Cecilia vez que el az?car est? normal, coma cecilia merienda o comida con prote?na y carbohidrato si falta m?s de 1 hora para la siguiente comida. Hipoglucemia Grave * Si la persona no puede comer ni beber de forma lindsey, o pierde el conocimiento: * Un familiar o amigo entrenado debe aplicar glucag?n (inyecci?n o spray nasal) si est? disponible. * Llame al 911 de inmediato. C?mo Prevenir * Coma comidas y refrigerios a horarios regulares. * Lleve siempre consigo cecilia india de az?car r?pida. * Revise horn az?car antes de conducir o hacer ejercicio. * Limite el alcohol y t?desouza siempre acompa?ado de comida. * Ense?e a familiares/amigos a usar glucag?n. -Mensaje Clave: ?La hipoglucemia puede ser peligrosa. Tr?claudia r?pidamente con 15 g de az?car r?pida, revise en 15 minutos, y repita si es necesario.? Coding Level of Care Code New Pt Level 5 (34342) Complex EM visit Add On G2211 Diagnoses Type 2 diabetes mellitus with diabetic neuropathy, with long-term current use of insulin E11.40; Z79.4 Time Spent (min) 65 Comment Time spent on review of previous records, history, exam/plan and patient educ ation.
[2025-01-04 14:04] VITALS: BP 108/62; PULSE 99; O2SAT 96; BMI 32.6
[2025-01-04 14:22] LABS: Glucose, Whole Blood 412 mg/dL (60-115)
== END 2025-01-04 15:30 | disposition home or self-care (01) ==
LOC: HO.ENCR 13:39
PROVIDERS: PCP Internal Medicine; Visit Provider Student in an Organized Health Care Education/Training Program
DX: E11.40 Type 2 diabetes mellitus with diabetic neuropathy, unspecified (principal); Z79.4 Long term (current) use of insulin
CPT/HCPCS: 99205; G2211

== ENCOUNTER → 2025-01-04 13:39 | Outpatient (BNVA) | payer OTHER, SELFPAY | PROVIDERS: PCP Internal Medicine; Visit Provider Student in an Organized Health Care Education/Training Program | DX: E11.65 Type 2 diabetes mellitus with hyperglycemia (principal); E11.40 Type 2 diabetes mellitus with diabetic neuropathy, unspecified; Z79.4 Long term (current) use of insulin; E11.43 Type 2 diabetes mellitus with diabetic autonomic (poly)neuropathy; K31.84 Gastroparesis; Z91.119 Patient's noncompliance with dietary regimen due to unspecified reason | CPT/HCPCS: 82947; 83036; 99202 ==

== ENCOUNTER 2025-01-09 04:41 | Emergency (ER) | payer OTHER, SELFPAY ==
[2025-01-09] VITALS (7 sets, daily range): BP systolic 125–158; BP diastolic 58–83; PULSE 65–83; RESP 15–20; TEMP 36.6–36.7; O2SAT 96–98; BMI 32.6
--- NOTE | ~2025-01-09 | CT_ITS ---
EXAMINATION: CT ABDOMEN AND PELVIS WITH CONTRAST CLINICAL INFORMATION: Abdominal pain. SBO COMPARISON: January 07, 2023 TECHNIQUE: Multidetector volumetric images were obtained from the superior aspect of the liver through the pubic symphysis following administration 85 mL of Omnipaque 350 intravenous contrast. Sagittal and coronal reformatted images were obtained on the technologist's workstation. Oral contrast: No This CT examination was performed using dose optimization techniques as appropriate, variously including the following: *Automated exposure control *Adjustment of mA and/or kV according to patient size (this includes techniques or standardized protocols for targeted exams where dose is matched to indication/reason for exam; i.e. extremities or head) *Use of iterative reconstruction technique DLP: 589 mGy centimeter. FINDINGS: Patient's motion artifact. LUNG BASES: No acute airspace disease. LIVER, GALLBLADDER, AND BILIARY TREE: Liver measures 19 cm. No focal mass. Main portal vein is patent. No intrahepatic biliary ductal dilatation. Status post, likely, laparoscopic cholecystectomy. Common bile duct measures 4 mm. PANCREAS: No focal mass. No peripancreatic fluid collection. No main pancreatic ductal dilatation. SPLEEN: 8 cm. No focal mass. ADRENAL GLANDS: No nodular lesions. KIDNEYS AND URETERS: No hydronephrosis. No gross nephrolithiasis. 12 mm fluid density lesion at the lower pole right kidney. Subcentimeter cystic lesion, upper pole and midportion of the left kidney. No enhancing mass. Normal enhancement of the renal cortex. BLADDER: Collapsed. GASTROINTESTINAL TRACT: Gas and fluid-filled nondistended small bowel loops. No intestinal wall thickening. Abundant stool in the large intestine. Appendix is normal. No pneumatosis intestinalis. No ascites. No pneumoperitoneum. No peripheral enhancing fluid collection, peritoneal cavity. ABDOMINAL WALL: Small fat-containing umbilical hernia and diastases abdominal rectus muscles in the periumbilical region. LYMPH NODES: Mild prominent, nonspecific retroperitoneum and mesenteric. VASCULAR: Mixed plaques throughout the abdominal aorta wall and iliac arteries without aneurysm or dissection. Calcified plaques in the coronary arteries and descending thoracic aorta. PELVIC VISCERA: 5 mm hyperdensity at the correct original region of the cranium, nonspecific and unchanged since 2022. OSSEOUS STRUCTURES: Multilevel thoracolumbar spondylosis pronounced at L5-S1. Prominent transverse processes of L5 articulating with the sacrum. Last rib-bearing greater than labeled T12. Mild degenerative changes in the coxofemoral joints. CT/CT abdomen pelvis w IV con IMPRESSION: No intestinal bowel obstruction pattern. Small fat-containing umbilical hernia. Atherosclerosis disease. Hepatomegaly. Bilateral renal cysts. Fleischner guidelines were followed. Electronically signed by: Gavin Lechuga MD 01/09/2025 08:22 AM EDT
--- NOTE | 2025-01-09 04:52 | ECG_ITS ---
Test Reason : EPIGASTRIC PAIN Blood Pressure : */* mmHG Vent. Rate : 77 BPM Atrial Rate : 77 BPM P-R Int : 110 ms QRS Dur : 82 ms QT Int : 364 ms P-R-T Axes : -22 2 25 degrees QTcB Int : 411 ms Sinus rhythm with short MA Otherwise normal ECG When compared with ECG of 25-Jan-2024 12:20, No significant change was found Referred By: Generic ED Physician Electronically Signed By: Janes Arrington
[2025-01-09 05:02] LABS: MANUAL DIFF FLAG NO
[2025-01-09 05:03] LABS: Hematocrit 38.6 % (37.0-47.0); Hemoglobin 13.3 g/dl (12.0-16.0); Imm Gran Abs Auto 0.03 X10*3/uL (0.00-0.03); Imm Gran Pct Auto 0.3 % (0.0-0.4); Lymphocytes Absolute Auto 4.2 X10*3/uL (1.2-4.9); Mean Corpuscular HGB Conc 34.5 g/dl (31.0-35.0); Mean Corpuscular Hemoglobin 32.8 pg (27.0-33.0); Mean Corpuscular Volume 95.1 fL (80.0-98.0); NRBC Abs Auto 0.000 X10*3/uL (0.0-0.012); NRBC Pct Auto 0.0 /100WBC (0.0-0.2); Platelet Count 200 X10*3/uL (160-400); Red Blood Count 4.06 X10*6/uL (4.20-5.50); White Blood Count 9.2 X10*3/uL (4.8-10.8)
[2025-01-09 05:19] LABS: Alanine Aminotransferase 14 U/L (0-31); Albumin Level 3.7 g/dL (3.5-5.0); Alkaline Phosphatase 130 U/L (39-117); Anion Gap 11 (12-20); Aspartate Amino Transferase 18 U/L (5-31); Blood Urea Nitrogen 27 mg/dL (9-16); Calcium 10.6 mg/dL (8.4-10.2); Carbon Dioxide 22 mmol/L (22-29); Chloride 110 mmol/L (96-108); Creatinine Clr Calc Pharmacy 72.2; Estimated Glomerular Filt Rate > 60; Lipase 67 U/L (8-78); Potassium 4.1 mmol/L (3.3-5.1); Sodium 139 mmol/L (135-145); Total Protein 7.2 g/dL (6.5-8.0)
--- OUTSIDE RECORDS SUMMARY | 2025-01-09 05:21 | XMS_ITS | Encounter Summary ---
Author Organization [employer] Address [address] [facility] [address] [place] [address] Care Team Providers Care Route Delivery Driver Name Role Phone Juliet Adhikari MD Primary Care Provider [phone] Encounter Details Date Type Department Care Team (Late st Contact Info) Description 08/02/2023 Orders Only [facility] [address] [place] [address] Provider, MD Julee Social History Tobacco Use [...] PM EDT Narrative 09/01/2023 3:51 PM EDT [address] [address] XRay Report Signed Patient: Jannet Alvarez MR#: [id number] : 1965 Acct:[id number] Age/Sex: 57 / F ADM Date: 09/01/23 Loc: HO.ED Attending Dr: Ordering Physician: Alexei Iniguez MD Date of Service: 09/01/23 Procedure(s): XR chest 1V Accession Number(s): [id number] cc: Juliet Adhikari MD; Alexei Iniguez MD [...] in OV> 09/01/23 1547 DD/ 1420 TD/TT: Training Generalist: SS Procedure Note Donotuseinterpreter, Image - 09/01/[address] [address] XRay Report Signed Patient: Jannet AlvarezMR#: [id number] : 1965Acct:[id number] Age/Sex: 57 / FADM Date: 09/01/23 Loc: HO.ED Attending Dr: Ordering Physician: Alexei Iniguez MD Date of Service: 09/01/23 Procedure(s): XR chest 1V Accession Number(s): [id number] cc: Juliet Adhikari MD; Alexei Iniguez MD [...] in OV> 09/01/23 1547 DD/ 1420 TD/TT: Training Generalist: BERYL [facility] External Provider IMG XR PROCEDURES Final Result * Colonoscopy (02/24/2023 3:37 PM EST) Anatomical Region Laterality Modality Endoscopy Historical Provider ENDOSCOPY PROCEDURE ORDER MAINE Final Result documented in this encounter Visit Diagnoses Not on filedocumented in this encounter Additional Health Concerns Assessment Noted Time PHQ-9 Depression Total Score: 12 10/21/ 023 9:26 AM EDT documented as of this encounter Care Teams Route Delivery Driver Relationship Specialty Start Date End Date Juliet Adhikari MD [address] [place] [address] PCP - General Internal Medicine 02/15/12 documented as of this encounter
--- OUTSIDE RECORDS SUMMARY | 2025-01-09 05:21 | XMS_ITS | Encounter Summary ---
Author Organization [employer] Address [address] [facility] 7 [place] [address] Care Team Providers Care Surface Lay Out Technician Name Role Phone Juliet Adhikari MD Primary Care Provider [phone] Reason for Visit * Reason Comments Med Refill Encounter Details Date Type Department Care Team ([facility] st Contact Info) Description 01/02/2024 Refill [facility] CHC MED & PEDS [address] [place], [place] [phone] Juliet Adhikari MD [address] [place], [place] [phone] Type 2 diabetes mellitus without complications (CMS/HCC) [...] documented as of this encounter Care Teams Surface Lay Out Technician Relationship Specialty Start Date End Date Juliet Adhikari MD [address] [place] [address] PCP - General Internal Medicine 02/15/12 documented as of this encounter
--- OUTSIDE RECORDS SUMMARY | 2025-01-09 05:21 | XMS_ITS | Encounter Summary ---
Author Organization [employer] Address [address] [facility] 7 [place] [address] Care Team Providers Care Service Line Bus Cleaner Name Role Phone Juliet Adhikari MD Primary Care Provider [phone] Reason for Visit * Reason Onset Date Comments Referral 11/01/2023 Encounter Details Date Type Department Care Team (Late st Contact Info) Description 11/01/2023 Telephone [facility] MEDICINE [address] [place] [address] Juliet Adhikari MD [address] [place], [place] [phone] Referral Social History Tobacco Use Types Packs/Day [...] documented as of this encounter Care Teams Service Line Bus Cleaner Relationship Specialty Start Date End Date Juliet Adhikari MD [address] [place] [address] PCP - General Internal Medicine 02/15/12 documented as of this encounter
--- OUTSIDE RECORDS SUMMARY | 2025-01-09 05:21 | XMS_ITS | Encounter Summary ---
Author Organization [employer] Address [address] [facility] 7 [place] [address] Care Team Providers Care Lead Manufacturing Engineer Name Role Phone Juliet Adhikari MD Primary Care Provider [phone] Reason for Visit * Reason Comments Med Refill Encounter Details Date Type Department Care Team ([facility] st Contact Info) Description 01/09/2024 Refill [facility] CHC MED & PEDS [address] [place], [place] [phone] Juliet Adhikari MD [address] [place], [place] [phone] Type 2 diabetes mellitus without complications (CMS/HCC) [...] as of this encounter Care Teams Lead Manufacturing Engineer Relationship Specialty Start Date End Date Juliet Adhikari MD [address] [place] [address] PCP - General Internal Medicine 02/15/12 documented as of this encounter
--- OUTSIDE RECORDS SUMMARY | 2025-01-09 05:21 | XMS_ITS | Encounter Summary ---
Author Organization [employer] Address [address] [facility] [address] [place] [address] Care Team Providers Care Dairy Farmworker Name Role Phone Juliet Adhikari MD Primary Care Provider [phone] Reason for Visit * Reason Onset Date Comments Nurse Triage 08/29/2023 Encounter Details Date Type Department Care Team ([facility] Contact Info) Description 08/29/2023 Telephone [facility] CHC MED & PEDS [address] [place], [place] [phone] Juliet Adhikari MD [address] [place] [address] Nurse Triage Social History Tobacco Use Types [...] insulin. Pt. Did have to go to [place] for a month at the last minute dueto a in the family Her father. Now pt. Got in from [place] last night and wants to get her [...] documented as of this encounter Care Teams Dairy Farmworker Relationship Specialty Start Date End Date Juliet Adhikari MD [address] [place] [address] PCP - General Internal Medicine 02/15/12 documented as of this encounter
--- OUTSIDE RECORDS SUMMARY | 2025-01-09 05:21 | XMS_ITS | Encounter Summary ---
Author Organization [employer] Address [address] [place] [address] Care Team Providers Care Felt Cutter Name Role Phone Juliet Adhikari MD Primary Care Provider [phone] Reason for Referral * Consultation (Routine) - Closed Specialty Diagnoses / Procedures Referred By Contac t Referred To Contact Occupational Therapy Diagnoses Lumbar radiculopathy Chronic left-sided low back pain with left-sided sciatica Juliet Adhikari MD [address] [place] [address] Phone: tel: fax: [facility] Physical Therapy [address] [place] [address] Phone: tel: fax: Referral ID Status Reason Start Date Expiration Date V isits Requested Visits Authorized [id number] Closed Specialty Services Required 07/18/2024 07/18/2025 1 1 * Consultation (Routine) - Closed Specialty Diagnoses / Procedures Referred By Contac t Referred To Contact Physical Therapy Diagnoses Lumbar radiculopathy Chronic left-sided low back pain with left-sided sciatica Juliet Adhikari MD [address] [place] [address] Phone: tel: fax: [facility] Physical Therapy [address] [place] [address] Phone: tel: fax: Referral ID Status Reason Start Date Expiration Date V isits Requested Visits Authorized [id number] Closed Specialty Services Required 07/18/2024 07/18/2025 1 1 Encounter Details Date Type Department Care Team ([facility] st Contact Info) Description 07/18/2024 Orders Only [facility] CHC MED & PEDS [address] [place] [address] Juliet Adhikari MD [address] [place] [address] Lumbar radiculopathy (Primary Dx); Chronic left-sided low [...] documented as of this encounter Care Teams Felt Cutter Relationship Specialty Start Date End Date Juliet Adhikari MD [address] [place] [address] PCP - General Internal Medicine 02/15/12 documented as of this encounter
--- OUTSIDE RECORDS SUMMARY | 2025-01-09 05:21 | XMS_ITS | Clinical Summary ---
Author Organization [facility] Address [address] [place] [address] Phone Care Team Providers Care Sponge Clipper Name Role Phone Willis Pearl MD Primary Care Provider [phone] Social History Tobacco Use Types Packs/Day Years Used Date Smoking Tobacco: Never Assessed Comments Unknown Sex and Gender Information Value Date Recorded Sex Assigned at Not on file Legal Sex Female 10:12 AM EST Gender Identity Not on file Sexual Orientation Not on file Plan of Treatment Upcoming Encounters Date Type Department Care Team (Late st Contact Info) Description 01/16/2025 3:00 PM EDT Office Visit Orthopedic Surgery - [address] [place] [address] Allyson [place], JHON [address] [place] [phone] Health Maintenance Due Date Last Done Comments Breast Cancer Screening 1965 DTaP,Tdap,and Td Vaccines (1 - Tdap) 09/29/1983 Cervical Cancer Screening: P ap Smear 1985 Pneumococcal Vaccine: 50+ Ye ars (1 of 1 - PCV) 2014 Zoster Vaccines (1 of 2) 2014 Depression Screening 04/18/2024 COVID-19 Vaccine ( - 2023-2 5 season) 2024 Influenza Vaccine [...] complete this topic Insurance MEDICAID JHON CARMICHAEL [id number] Care Teams Sponge Clipper Relationship Specialty Start Date End Date Willis Pearl MD [address] [place] [address] PCP - General 08/22/08
--- OUTSIDE RECORDS SUMMARY | 2025-01-09 05:21 | XMS_ITS | Encounter Summary ---
Author Organization [employer] Address [address] [facility] [place] [address] Care Team Providers Care Adobe Layer Helper Name Role Phone Juliet Adhikari MD Primary Care Provider [phone]- [phone] Reason for Referral * Consultation (Routine) - Closed Specialty Diagnoses / Procedures Referred By Contac t Referred To Contact Pain Medicine Diagnoses Chronic left-sided low back pain with left-sided sciatica Lumbar radiculopathy Spinal stenosis of lumbar region without neurogenic claudication Juliet Adhikari MD [address] [place] [address] Phone: tel: fax: Daniel Cash MD [address] [place] [address] [address] [place] [address] Phone: tel: fax: Referral ID Status Reason Start Date Expiration Date V isits Requested Visits Authorized [id number] Closed Specialty Services Required 05/04/2024 05/04/2025 1 1 Encounter Details Date Type Department Care Team (Late st Contact Info) Description 05/04/2024 Orders Only [facility] CHC MED & PEDS [address] [place], [place] [phone] Juliet Adhikari MD [address] [place] [phone] Chronic left-sided low back pain with left-sided [...] documented as of this encounter Care Teams Adobe Layer Helper Relationship Specialty Start Date End Date Juliet Adhikari MD [address] [place] [address] PCP - General Internal Medicine 02/15/12 documented as of this encounter
--- OUTSIDE RECORDS SUMMARY | 2025-01-09 05:21 | XMS_ITS | Encounter Summary ---
Author Organization [employer] Address 75 [facility] 7 [place] [address] Care Team Providers Care Crown Ironer Name Role Phone Juliet Adhikari MD Primary Care Provider [phone]- [phone] Reason for Visit * Reason Onset Date Comments ER Follow-up 11/16/2023 Encounter Details Date Type Department Care Team ([facility] st Contact Info) Description 11/16/[address] [facility] MEDICINE [address] [place] [address] Juliet Adhikari MD 505 [place], [place] [phone] ER Follow-up Social History Tobacco Use Types [...] 11/16/2023 11:37 AM EDT Triage call with Blippar Bobbin Winder ID [id number] Pt was seen in [facility] ED 11/12/23 (report is on the chart). [...] documented as of this encounter Care Teams Crown Ironer Relationship Specialty Start Date End Date Juliet Adhikari MD [address] [place] [address] PCP - General Internal Medicine 02/15/12 documented as of this encounter
--- OUTSIDE RECORDS SUMMARY | 2025-01-09 05:21 | XMS_ITS | Encounter Summary ---
Author Organization [employer] Address 75 [facility] 7 [place] [address] Care Team Providers Care Grain Buyer Name Role Phone Juliet Adhikari MD Primary Care Provider [phone]- [phone] Reason for Visit * Reason Onset Date Comments Nurse Triage 12/22/2023 Encounter Details Date Type Department Care Team ([facility] Contact Info) Description 12/22/[address] [facility] CHC MED & PEDS 505 [place], [place] [phone] Juliet Adhikari MD 505 [place] [address] Nurse Triage Social History Tobacco Use Types [...] Has appt. At end of month with [facility] but pt. States she [...] her through the month until she see's [facility]. Please advise and have [...] were negative * Telephone Encounter - Yolie [place] - 12/22/2023 1:54 PM EDT Symptom: Back [...] documented as of this encounter Care Teams Grain Buyer Relationship Specialty Start Date End Date Juliet Adhikari MD 505 [place] [address] PCP - General Internal Medicine 02/15/12 documented as of this encounter
--- OUTSIDE RECORDS SUMMARY | 2025-01-09 05:21 | XMS_ITS | Encounter Summary ---
Author Organization [employer] Address [address] [place] [address] 7 [place] [address] Care Team Providers Care Electroencephalogram Technologist Name Role Phone Juliet Adhikari MD Primary Care Provider [phone] Reason for Visit * Reason Onset Date Comments Med Refill Appointment 01/08/2023 [facility] Encounter Details Date Type Department Care Team ([facility] st Contact Info) Description 01/08/2023 Refill [facility] MEDICINE 230 [place] [address] Roman Cummings FNP Social History Tobacco Use [...] pt regarding her appt for today as [id number]. pt request to cancel and re-schedule, Pt r/s for 02/10/23. documented in this encounter Plan of Treatment Not on file documented as of this encounter Visit Diagnoses Not on filedocumented in this encounter Additional Health Concerns Assessment Noted Time PHQ-9 Depression Total Score: 12 023 9:26 AM EDT documented as of this encounter Care Teams Electroencephalogram Technologist Relationship Specialty Start Date End Date Juliet Adhikari MD [address] [place] [address] [place] Mej[place] [address] PCP - General Internal Medicine 02/15/12 documented as of this encounter
--- OUTSIDE RECORDS SUMMARY | 2025-01-09 05:21 | XMS_ITS | Encounter Summary ---
Author Organization [employer] Address 75 [facility] 7t [place] [address] Care Team Providers Care Billboard Mechanic Name Role Phone Juliet Adhikari MD Primary Care Provider [phone] Encounter Details Date Type Department Care Team ([facility] st Contact Info) Description 12/23/2023 Orders Only [facility] CHC MED & PEDS 505 [place], [place] [phone] Juliet Adhikari MD 505 [place] [address] Lumbar radiculopathy (Primary Dx) Social History Tobacco [...] documented as of this encounter Care Teams Billboard Mechanic Relationship Specialty Start Date End Date Juliet Adhikari MD [address] [place] [address] PCP - General Internal Medicine 02/15/12 documented as of this encounter
--- OUTSIDE RECORDS SUMMARY | 2025-01-09 05:21 | XMS_ITS | Encounter Summary ---
Author Organization [employer] Address 75 [facility] 7 [place] [address] Care Team Providers Care Shipper Receiver Name Role Phone Juliet Adhikari MD Primary Care Provider [phone] Reason for Visit * Reason Onset Date Comments Referral 07/29/2023 Encounter Details Date Type Department Care Team ([facility] st Contact Info) Description 07/29/2023 Telephone [facility] MEDICINE 230 [place] [address] Juliet Adhikari MD 505 [place], [place] [phone] Referral Social History Tobacco Use Types Packs/Day [...] - 07/29/2023 9:45 AM EDT [facility] a [facility], stated pt told her wanted a check up due to colon cancer in the family. Any questions contact Jennifer [phone] documented in this encounter Plan of Treatment Not on file documented as of this encounter Visit Diagnoses Not on filedocumented in this encounter Additional Health Concerns Assessment Noted Time PHQ-9 Depression Total Score: 12 023 9:26 AM EDT documented as of this encounter Care Teams Shipper Receiver Relationship Specialty Start Date End Date Juliet Adhikari MD [address] [place] [address] PCP - General Internal Medicine 02/15/12 documented as of this encounter
--- OUTSIDE RECORDS SUMMARY | 2025-01-09 05:22 | XMS_ITS | Encounter Summary ---
Author Organization [employer] Address 75 [facility] 7t [place] [address] Care Team Providers Care Electric Tripper Machine Operator Name Role Phone Juliet Adhikari MD Primary Care Provider [phone] Encounter Details Date Type Department Care Team ([facility] st Contact Info) Description 09/03/2024 Orders Only [facility] CHC MED & PEDS 505 [place], [place] [phone] Juliet Adhikari MD 505 [place] [address] Cyst, vulva (Primary Dx) Social History Tobacco [...] documented as of this encounter Care Teams Electric Tripper Machine Operator Relationship Specialty Start Date End Date Juliet Adhikari MD [address] [place] [address] PCP - General Internal Medicine 02/15/12 documented as of this encounter
--- OUTSIDE RECORDS SUMMARY | 2025-01-09 05:22 | XMS_ITS | Encounter Summary ---
Author Organization [employer] Address 75 [facility] 7 [place] [address] Care Team Providers Care Loader Name Role Phone Juliet Adhikari MD Primary Care Provider [phone] Encounter Details Date Type Department Care Team ([facility] st Contact Info) Description 03/15/2023 Orders Only [facility] CHC MED & PEDS 505 [place], [place] [phone] Juliet Adhikari MD 505 [place] [address] Acute vaginitis (Primary Dx) Social History Tobacco [...] documented as of this encounter Care Teams Loader Relationship Specialty Start Date End Date Juliet Adhikari MD [address] [place] [address] PCP - General Internal Medicine 02/15/12 documented as of this encounter
--- OUTSIDE RECORDS SUMMARY | 2025-01-09 05:22 | XMS_ITS | Encounter Summary ---
Author Organization [employer] Address 75 [facility] 7t [place] [address] Care Team Providers Care Community Living Specialist Name Role Phone Juliet Adhikari MD Primary Care Provider [phone] Encounter Details Date Type Department Care Team (Late st Contact Info) Description 01/04/2025 Orders Only GENERIC EXTERNAL DATA DEPARTMENT Provider, Generic External Data Social History Tobacco Use Types Packs/Day Years [...] Procedure Name Priority Date/Time Associated Diagnosis Comments GLUCOSE, WHOLE BLOOD Routine 01/04/2025 2:17 PM EDT documented in this encounter Results * (ABNORMAL) Glucose, Whole Blood (01/04/2025 2:17 PM EDT) Glucose, Whole Blood 412(HH) 60 - 115 mg/dL [facility] Comment:METER #: [id number] 0Testing performed in the Endocrinology Department [address] , [address], [facility]. 01/04/2025 2:17 PM EDT 01/04/2025 2:22 PM EDT us Generic External Data Provider LAB BLOOD ORDERAB LES Final Result [facility] [address] [place] [address] [phone] documented in this encounter Visit Diagnoses Not on filedocumented in this encounter Additional Health Concerns Assessment Noted Time PHQ-9 Depression Total Score: 20 025 5:21 PM EDT documented as of this encounter Care Teams Community Living Specialist Relationship Specialty Start Date End Date Juliet Adhikari MD 505 [place] [address] PCP - General Internal Medicine 02/15/12 documented as of this encounter
--- OUTSIDE RECORDS SUMMARY | 2025-01-09 05:22 | XMS_ITS | Encounter Summary ---
Author Organization [employer] Address 75 [facility] 7t [place] [address] Care Team Providers Care Engineering Geologist Name Role Phone Juliet Adhikari MD Primary Care Provider [phone] [phone] Encounter Details Date Type Department Care Team ([facility] st Contact Info) Description 11/02/2022 Telephone [facility] [address] [place] [address] Jovan Soler, LEV [address] [place] [address] Social History Tobacco Use Types Packs/Day Years [...] documented as of this encounter Care Teams Engineering Geologist Relationship Specialty Start Date End Date Juliet Adhikari MD [address] [place] [address] PCP - General Internal Medicine 02/15/12 documented as of this encounter
--- OUTSIDE RECORDS SUMMARY | 2025-01-09 05:22 | XMS_ITS | Encounter Summary ---
Author Organization [employer] Address 75 [facility] 7 [place] [address] Care Team Providers Care Irrigation District Manager Name Role Phone Juliet Adhikari MD Primary Care Provider [phone] Encounter Details Date Type Department Care Team ([facility] st Contact Info) Description 11/22/2022 Orders Only [facility] CHC MED & PEDS [address] [place], [place] [phone] Juliet Adhikari MD 505 [place] [address] Positive PPD (Primary Dx) Social History Tobacco [...] documented as of this encounter Care Teams Irrigation District Manager Relationship Specialty Start Date End Date Juliet Adhikari MD [address] [place] [address] PCP - General Internal Medicine 02/15/12 documented as of this encounter
--- OUTSIDE RECORDS SUMMARY | 2025-01-09 05:22 | XMS_ITS | Encounter Summary ---
Author Organization [employer] Address [address] [place] [address] [place] [address] Care Team Providers Care Computator Name Role Phone Juliet Adhikari MD Primary Care Provider +[phone] Reason for Visit * Reason Comments Med Refill Encounter Details Date Type Department Care Team ([facility] st Contact Info) Description 05/05/[address] [facility] CHC MED & PEDS [address] [place], [place] [address] Juliet Adhikari MD 505 [place], [place] [phone] Type 2 diabetes mellitus with hyperglycemia (CMS/HCC) [...] documented as of this encounter Care Teams Computator Relationship Specialty Start Date End Date Juliet Adhikari MD [address] [place] [address] PCP - General Internal Medicine 02/15/12 documented as of this encounter
--- OUTSIDE RECORDS SUMMARY | 2025-01-09 05:22 | XMS_ITS | Encounter Summary ---
Author Organization [employer] Address [address] [place] [address] [place] [address] Care Team Providers Care Mix House Operator Name Role Phone Juliet Adhikari MD Primary Care Provider [phone] Reason for Visit * Reason Comments Med Change Request Encounter Details Date Type Department Care Team ([facility] Contact Info) Description 05/10/2022 Refill [facility] CHC MED & PEDS 505 [place], [place] [phone] Juliet Adhikari MD 505 [place], [place] [phone] Diabetic nephropathy associated with type 2 diabetes [...] (CMS/HCC) documented in this encounter Care Teams Mix House Operator Relationship Specialty Start Date End Date Juliet Adhikari MD [address] [place] [address] PCP - General Internal Medicine 02/15/12 documented as of this encounter
--- OUTSIDE RECORDS SUMMARY | 2025-01-09 05:22 | XMS_ITS | Encounter Summary ---
Author Organization [employer] Address [address] [place] [address] Care Team Providers Care Fish Technologist Name Role Phone Juliet Adhikari MD Primary Care Provider [phone]- [phone] Reason for Visit * Reason Onset Date Comments Nurse Triage 06/02/2023 Encounter Details Date Type Department Care Team ([facility] Contact Info) Description 06/02/2023 Telephone [facility] CHC MED & PEDS 505 [place], [place] [phone] Juliet Adhikari MD 505 [place] [address] Nurse Triage Social History Tobacco Use Types [...] Appt. Made for 06/03/23 at 120pm in [facility] but will send this note to team [...] Appt made for 06/03/23 at 120pm in [facility]. Video visit not offered Positive Triage Questions: * Severe sinus pain * Severe headache * Nasal discharge present > 10 days *thick green nasal discharge with blood mixed in. * Lots of coughing * All higher-acuity triage questions were negative Care Advice Discussed: * Reassurance and Education - Colds and Sinus Congestion * Nasal Washes for a Stuffy Nose * Nasal Washes - [id number] Instructions * Hydration * Telephone Encounter - Carmelita Wayne - 06/02/2023 1:14 PM EST Symptom: Sinus Symptoms Outcome: Schedule an urgent appointment (within 1 hour) or talk to a nurse or provider soon Reason: Severe headache The caller accepted this outcome Please contact pt at [phone] documented in this encounter Plan of Treatment Not on file documented as of this encounter Visit Diagnoses Not on filedocumented in this encounter Additional Health Concerns Assessment Noted Time PHQ-9 Depression Total Score: 12 023 9:26 AM EDT documented as of this encounter Care Teams Fish Technologist Relationship Specialty Start Date End Date Juliet Adhikari MD [address] [place] [address] PCP - General Internal Medicine 02/15/12 documented as of this encounter
--- OUTSIDE RECORDS SUMMARY | 2025-01-09 05:22 | XMS_ITS | Encounter Summary ---
Author Organization [employer] Address [address] [place] [address] Care Team Providers Care Body Shop Floorperson Name Role Phone Juliet Adhikari MD Primary Care Provider [phone] Reason for Visit * Reason Comments Med Refill Encounter Details Date Type Department Care Team ([facility] st Contact Info) Description 01/08/2023 Refill [facility] CHC MED & PEDS 505 [place], [place] [phone] Juliet Adhikari MD 505 [place], [place] [phone] Social History Tobacco Use Types Packs/Day Years [...] documented as of this encounter Care Teams Body Shop Floorperson Relationship Specialty Start Date End Date Juliet Adhikari MD [address] [place] [address] PCP - General Internal Medicine 02/15/12 documented as of this encounter
--- OUTSIDE RECORDS SUMMARY | 2025-01-09 05:22 | XMS_ITS | Encounter Summary ---
Author Organization [employer] Address 75 [facility] 7 [place] [address] Care Team Providers Care Vice President Mission Integration Name Role Phone Juliet Adhikari MD Primary Care Provider +[phone] Encounter Details Date Type Department Care Team ([facility] st Contact Info) Description 02/04/2023 Abstract [facility] MEDICINE [address] [place] [address] Juliet Adhikari MD [address] [place] [address] Social History Tobacco Use Types Packs/Day Years [...] documented as of this encounter Care Teams Vice President Mission Integration Relationship Specialty Start Date End Date Juliet Adhikari MD [address] [place] [address] PCP - General Internal Medicine 02/15/12 documented as of this encounter
--- OUTSIDE RECORDS SUMMARY | 2025-01-09 05:22 | XMS_ITS | Encounter Summary ---
Author Organization [employer] Address [address] [place] [address] Care Team Providers Care Issue Clerk Name Role Phone Juliet Adhikari MD Primary Care Provider +[phone]- [phone] Reason for Visit * Reason Onset Date Comments FYI 03/16/2023 Encounter Details Date Type Department Care Team ([facility] Contact Info) Description 03/16/2023 Telephone [facility] CHC MED & PEDS 505 [place], [place] [phone] Juliet Adhikari MD [address] [place] [address] FYI Social History Tobacco Use Types Packs/Day [...] documented as of this encounter Care Teams Issue Clerk Relationship Specialty Start Date End Date Juliet Adhikari MD [address] [place] [address] PCP - General Internal Medicine 02/15/12 documented as of this encounter
--- OUTSIDE RECORDS SUMMARY | 2025-01-09 05:22 | XMS_ITS | Encounter Summary ---
Author Organization [employer] Address 75 [facility] 7 [place] [address] Care Team Providers Care Institutional Research Director Name Role Phone Juliet Adhikari MD Primary Care Provider [phone] Reason for Visit * Reason Comments Med Change Request Encounter Details Date Type Department Care Team ([facility] Contact Info) Description 12/21/2024 Refill [facility] CHC MED & PEDS [address] [place], [place] [phone] Juliet Adhikari MD 505 [place], [place] [phone] Carpal tunnel syndrome of right wrist Social [...] documented as of this encounter Care Teams Institutional Research Director Relationship Specialty Start Date End Date Juliet Adhikari MD [address] [place] [address] PCP - General Internal Medicine 02/15/12 documented as of this encounter
--- OUTSIDE RECORDS SUMMARY | 2025-01-09 05:22 | XMS_ITS | Clinical Summary ---
Author Organization [employer] Address [address] [facility] 7t [place] [address] Care Team Providers Care Design Project Manager Name Role Phone Juliet Adhikari MD Primary Care Provider [phone] Allergies Active Allergy Reactions Criticality Noted Date [...] (pen needle, diabetic) 31G X 8 mm [facility] Ultra-Fine Short Pen Needle 31 [...] polyneuropathy, with long-term current use of insulin ([facility]) INJECT 84 UNIT SUBCUTANEOUSLY AT BEDTIME 15 [...] chew. 60 capsule 09/05/192025 Active Continuous Glucose Diagnostic Technologist (FreeStyle Kelle 3 Entriken) deviceIndications :Type 2 diabetes mellitus with diabetic [...] polyneuropathy, with long-term current use of insulin ([facility]/HCC) INJECT 36-42 UNITS DEPENDING ON BLOOD GLUCOSE [...] 1 each 12/22/19 25 Active Continuous Glucose Diagnostic Technologist (FreeStyle Kelle 3 Entriken) deviceIndications :Uncontrolled type 2 diabetes mellitus with [...] type 2 diabetes mellitus 12/21/2024 Non-ST elevation DE (NSTEMI) 11/02/2024 Spinal stenosis of lumbar re [...] retiring, patient will be transferred to new [facility] psychiatric prescriber. Patient is aware that appointments will be via televisit, and that the provider will not be an employee of [facility]. She gives verbal permission to share protected [...] organization. Date Type Department Care Team Description 01/04/2025 Orders Only GENERIC EXTERNAL DATA DEPARTMENT Provider, Generic External Data 12/21/2024 1:30 PM EDT Office Visit [facility] [address] [place] [address] Juliet Adhikari MD Paresthesias (Primary Dx); Diabetic polyneuropathy associated with type 2 diabetes mellitus (CMS/HCC); Carpal tunnel syndrome of right wrist; Uncontrolled type 2 diabetes mellitus with hyperglycemia ([facility]/HCC); Mood disorder ([facility]); Dietary counseling; Exercise counseling; Class 1 obesity due to excess calories with serious comorbidity and body mass index (BMI) of 32.0 to 32.9 in adult 12/21/2024 Refill [facility] [address] [place] [address] Juliet Adhikari MD Carpal tunnel syndrome of right wrist 12/21/2024 Travel 12/20/2024 Telephone [facility] [address] [place] [address] Juliet Adhikari MD Nurse Triage 11/21/2024 Telephone [facility] [address] [place] [address] Juliet Adhikari MD 11/06/2024 Telephone [facility] [address] [place] [address] Nury Wong MD No Show 11/05/2024 Telephone [facility] [address] [place] [address] Melina Recinos, PharmD 10/18/2024 Telephone [facility] [address] [place] [address] Juliet Adhikari MD 10/16/2024 Telephone [facility] [address] [place] [address] Juliet Adhikari MD Appointment Request from Last [...] WHOLE BLOOD Routine 01/04/2025 2:17 PM EDT POCT GLUCOSE Routine 12/21/2024 2:45 PM EDT [...] Relevant to Health Maintenance Results * (ABNORMAL) Glucose, Whole Blood (01/04/2025 2:17 PM EDT) Glucose, Whole Blood 412(HH) 60 - 115 mg/dL [facility] Comment:METER #: [id number] 0Testing performed in the Endocrinology Department [address] , [address], [facility]. 01/04/2025 2:17 PM EDT 01/04/2025 2:22 PM EDT us Generic External Data Provider LAB BLOOD ORDERAB LES Final Result Performing Organization Address City/State/[facility] Co de Phone Number [facility] [address] [place] [phone] * (ABNORMAL) POCT Glucose (12/21/2024 2:45 PM EDT) Glucose Blood, POC 227(A) 60 - 200 mg/dL QC Media Lot # [id number] Lot# Expiration Date 223 Comment:random Blood Capillary blood specimen / Unknown 12/21/2024 2:45 PM EDT us Juliet Adhikari MD POINT OF CARE TEST ENTER/ED IT ORDERABLES Final Result * (ABNORMAL) POCT Hgb A1c (12/21/2024 2:44 PM EDT) Hemoglobin A1C 10.0(A) 4.0 - 5.7 % QC Media Lot # [id number] Lot# Expiration Date [id number] Blood 12/21/2024 2:44 PM EDT us Juliet Adhikari MD POINT OF CARE TEST ENTER/ED IT ORDERABLES Final Result * Colonoscopy (02/24/2023 3:37 PM EST) Anatomical Region Laterality Modality Endoscopy Historical Provider ENDOSCOPY PROCEDURE ORDER MAINE Final Result * (ABNORMAL) LIPID PANEL, STANDARD (02/25/2022 11:34 AM EST) Chol/HDLC Ratio 5.5(H) <5.0 (calc) CONVERTED LEGACY [...] equation in the estimation of LDL-C. Lex CORDOBA et al. NEVAEH. 2013;310(19): 6764-1975 (http://education.Olo.com/faq/AUK174) Non-HDL Cholesterol 204(H) <130 mg/dL (calc) CONVERTED [...] along with historic and current clinical information. Chief Customer Officer : SEE COMMENT [facility] Comment: DCR, CT(ASCP) CT screening location: [address] [address] Infection Shift in vaginal allie suggestive of bacterial vaginosis. [facility] Interpretation/R esult: Negative for intraepithelial lesion or malignancy. [facility] LMP: NONE [facility]IV[facility] Prev. BX: NONE [facility] Prev. PAP: NONE [facility]IV[facility] SOURCE: None given [facility] Statement Of Adequacy: SEE COMMENT [facility] Comment: Satisfactory for evaluation. Endocervical/transformation zone component absent. Age and/or menstrual status not provided 09/02/2020 1:57 PM EDT Kylee [facility] [place] [facility] LAB PATHOLOGY ORDERABLES Final Result [facility] [address] * HPV mRNA E6/E7 (09/02/2020 1:57 PM EDT) Pathologist [facility] HPV nRNA E6/E7 Not Detected Not Detected [facility] Comment: Methodology: Steam Shovel Runner-Mediated Amplification This assay detects E6/E7 viral messenger RNA (mRNA) from 14 high-risk HPV types (16,18,31,33,35,39,45,51,52,56,58,59,66,68). The analytical performance characteristics of this assay have been determined by [employer]. The modifications have not been cleared or approved by the FDA. This assay has been validated pursuant to the CLIA regulations and is used for clinical purposes. For additional information, please refer to http://education.Stringbike/faq/YOE372s2 (This link if provided for information/ educational purposes only.) 09/02/2020 1:57 PM EDT us Kylee Mcmahan CNM LAB BLOOD ORDERABLES Colleen bailey Result [facility] [address] [place] [address], from Last 3 Months or Most Recently Relevant to Health Maintenance Insurance [facility] < 65 [facility] MEDICAID STAND ADULT Care Teams Design Project Manager Relationship Specialty Start Date End Date Juliet Adhikari MD [address] [place] [phone] PCP - General Internal Medicine 02/15/12
--- OUTSIDE RECORDS SUMMARY | 2025-01-09 05:22 | XMS_ITS | Encounter Summary ---
Author Organization [employer] [facility] Address [address] [place] [address] 7 [place] [address] Care Team Providers Care Roll Cleaner Name Role Phone Juliet Adhikari MD Primary Care Provider [phone] Reason for Visit * Reason Onset Date Comments referral 11/02/2022 Encounter Details Date Type Department Care Team (Late st Contact Info) Description 11/02/2022 Telephone [facility] [address] [place] [address] Elidia Arce, DDS [address] [place] [address] referral Social History Tobacco Use Types Packs/Day [...] be sent in to Maxillofacial surgery in [place] because they got her in as an [...] documented as of this encounter Care Teams Roll Cleaner Relationship Specialty Start Date End Date Juliet Adhikari MD [address] [place] [phone] PCP - General Internal Medicine 02/15/12 documented as of this encounter
--- OUTSIDE RECORDS SUMMARY | 2025-01-09 05:22 | XMS_ITS | Encounter Summary ---
Author Organization [employer] Address [address] [place] [address] [address] [place] [address] Care Team Providers Care Concreting Supervisor Name Role Phone Juliet Adhikari MD Primary Care Provider [phone] Reason for Visit * Reason Comments Med Change Request Encounter Details Date Type Department Care Team ([facility] Contact Info) Description 05/12/2022 Refill [facility] [address] [place], [place] [phone] Juliet Adhikari MD [address] [place], [place] [phone] Diabetic nephropathy associated with type 2 diabetes [...] nephropathy associated with type 2 diabetes mellitus (CMS/[facility]) documented in this encounter Care Teams Concreting Supervisor Relationship Specialty Start Date End Date Juliet Adhikari MD [address] [place] [phone] PCP - General Internal Medicine 02/15/12 documented as of this encounter
--- OUTSIDE RECORDS SUMMARY | 2025-01-09 05:22 | XMS_ITS | Encounter Summary ---
Author Organization [employer] Address [address] [facility] 7 [place] [address] Care Team Providers Care Table Games Dealer Name Role Phone Juliet Adhikari MD Primary Care Provider [phone] Encounter Details Date Type Department Care Team ([facility] st Contact Info) Description 11/02/2022 Orders Only [facility] [address] [place], [place] [phone] Juliet Adhikari MD [address] [place] [address] Diabetic nephropathy associated with type 2 diabetes [...] documented as of this encounter Care Teams Table Games Dealer Relationship Specialty Start Date End Date Juliet Adhikari MD [address] [place] [address] PCP - General Internal Medicine 02/15/12 documented as of this encounter
--- OUTSIDE RECORDS SUMMARY | 2025-01-09 05:22 | XMS_ITS | Encounter Summary ---
Author Organization [employer] Address [address] [place] [address] [place] [address] Care Team Providers Care Sidehand Name Role Phone Juliet Adhikari MD Primary Care Provider [phone] Reason for Visit * Reason Comments Med Change Request Encounter Details Date Type Department Care Team ([facility] Contact Info) Description 05/11/2022 Refill [facility] [address] [place], [place] [phone] Juliet Adhikari MD [address] [place], [place] [phone] Diabetic nephropathy associated with type 2 diabetes [...] (CMS/HCC) documented in this encounter Care Teams Sidehand Relationship Specialty Start Date End Date Juliet Adhikari MD [address] [place] [phone] PCP - General Internal Medicine 02/15/12 documented as of this encounter
--- OUTSIDE RECORDS SUMMARY | 2025-01-09 05:22 | XMS_ITS | Clinical Summary ---
Author Organization [facility] Address [address] [facility] [address] [place], [place] [phone] Phone Care Team Providers Care Revenue Inspector Name Role Phone Pcp, Unknown Primary Care Provider Unavailabl e Allergies Active Allergy Reactions Criticality Noted Date Comments Penicillins 11/12/2023 Medications amLODIPine (NORVASC) 5 MG tablet Take 5 mg by mouth daily. 06/30/2023 Active hydrOXYzine (ATARAX) 50 MG tablet Take 50 mg by mouth nightly at bedtime. Active NOVOLOG FLEXPEN U-100 INSULIN 100 unit/mL (3 mL) flexpen 01/03/2024 Active lidocaine (LIDODERM) 5 % Place 1 patch onto the skin daily. 01/06/2024 Active gabapentin (NEURONTIN) 800 MG tablet Take 800 mg by mouth daily. Active acetaminophen-c odeine (TYLENOL #3) 300-30 mg per tablet Take 1 tablet by mouth every 6 (six) hours as needed for pain (specific location in comments). 12 tablet 01/29/2024 Active Social History Tobacco Use Types Packs/Day Years Used Date Smoking Tobacco: Some Days Cigarettes Smokeless Tobacco: Never Tobacco Cessation:Ready to Q uit: Not Asked; Counseling Given: Not Answered Alcohol Use Standard Drinks/Week Comments Not Currently 0 (1 standard drink = 0.6 oz pur e alcohol) Education Answer Date Recorded Are you interested in more education? Not on rhina e 11/12/2023 Are you concerned about learning? Not on file 11/12/2023 No 11/12/2023 No 11/12/2023 Digital Access Answer Date Recorded No 11/12/2023 No 11/12/2023 Reliable internet access at home? Not on file 11/12/2023 Device with a working camera? Not on file Intimate Partner Violence Answer Date R ecorded Are you denied basic needs s uch as food, clothing, or medical care? No 01/29/2024 In the past 12 months have y ou been in a relationship with a person who hurts, threatens, or tries to control you? No 01/29/2024 Are you denied basic needs s uch as food, clothing, or medical care? No 01/29/2024 In the past 12 months have y ou been in a relationship with a person who hurts, threatens, or tries to control you? No 01/29/2024 Comments Unknown Sex and Gender Information Value Date Recorded Sex Assigned at Female 11/12/2023 12:39 PM EDT Legal Sex Female 12:26 PM EDT Gender Identity Female 11/12/2023 12:39 PM EDT Sexual Orientation Straight 11/12/2023 12 :39 PM EDT Last Filed Vital Signs Vital Sign Reading Time Taken Comments Blood Pressure 124/76 01/29/2024 3:32 PM EDT Pulse 86 01/29/2024 3:32 PM EDT Temperature 36.8 C (98.2 F) 01/29/2024 3:32 PM EDT Respiratory Rate 16 01/29/2024 3:32 PM EDT Oxygen Saturation 99% 01/29/2024 3:32 PM EDT Inhaled Oxygen Concentration - - Weight 87.5 kg (193 lb) 01/29/2024 1:53 PM EDT Height 162.6 cm (5' 4 ) 01/29/2024 1:53 PM EDT Body Mass Index 33.13 01/29/2024 1:53 PM EDT Plan of Treatment Health Maintenance Due Date Last Done Comments DEPRESSION SCREENING 1976 SMOKING Hx and SMOKELESS TOBACCO SCREENING 1977 HEPATITIS C SCREENING 1982 HIV ONE-TIME SCREENING (18-6 5 YEARS) 1982 PAP SMEAR 1985 MAMMOGRAM 2004 COLOGUARD 2009 COLONOSCOPY 2009 COLORECTAL CANCER SCREENING 2009 FIT TEST 2009 FOBT 2009 SIGMOIDOSCOPY 2009 VIRTUAL COLONOSCOPY 2009 PNEUMOCOCCAL VACCINES (50+ years) (2 of 2 - PCV) 08/20/2011 08/19/2010 ZOSTER VACCINES (1 of 2) 2014 Adult Td,Tdap Booster 02/16/2021 02/16/2011 INFLUENZA VACCINE (#1) 2024 COVID-19 VACCINE ( - 2023-2 5 season) 2024 SCREENING FOR DIABETES 01/08/2027 4, 11/02/2023 LIPID PANEL 02/25/2027 02/25/2022 RSV VACCINE (1 - 1-dose 75+ series) 09/29/2039 HEPATITIS A VACCINES Aged Out No long er eligible based on patient's age to complete this topic HIB VACCINES Aged Out No longer eligi ble based on patient's age to complete this topic MENINGOCOCCAL VACCINES (ACWY) Aged Out No longer eligible based on patient's age to complete this topic MENINGOCOCCAL VACCINES (B) Aged Out N o longer eligible based on patient's age to complete this topic Medical Devices Not on file Insurance [employer] MEDICARE REPLACEMENT JHON CARMICHAEL [id number] Care Teams Revenue Inspector Relationship Specialty Start Date End Date Pcp, Unknown PCP - General 01/29/24 Additional Source Comments The information contained in this document represents components of the legal health record. It is not the complete legal health record.[facility]
--- OUTSIDE RECORDS SUMMARY | 2025-01-09 05:22 | XMS_ITS | Encounter Summary ---
Author Organization [employer] Address [address] [facility] 7 [place] [address] Care Team Providers Care Dairy Clerk Name Role Phone Juliet Adhikari MD Primary Care Provider [phone] Encounter Details Date Type Department Care Team (Late st Contact Info) Description 05/07/2022 Orders Only [facility] [address] [place] [phone] Juliet Adhikari MD [address] [place] [address] Type 2 diabetes mellitus with diabetic polyneuropathy, with long-term current use of insulin ([facility]) (Primary Dx) Social History Tobacco Use Types [...] polyneuropathy, with long-term current use of insulin ([facility]) CBC WITH AUTO DIFFERENTIAL Routine 09/09/2022 2:33 PM EDT Type 2 diabetes mellitus with diabetic polyneuropathy, with long-term current use of insulin ([facility]) BASIC METABOLIC PANEL Routine 09/09/2022 2:33 PM EDT Type 2 diabetes mellitus with diabetic polyneuropathy, with long-term current use of insulin ([facility]) CBC WITH AUTO DIFFERENTIAL Routine 08/25/2022 7:28 PM EDT Type 2 diabetes mellitus with diabetic polyneuropathy, with long-term current use of insulin ([facility]) BASIC METABOLIC PANEL Routine 08/25/2022 7:28 PM EDT Type 2 diabetes mellitus with diabetic polyneuropathy, with long-term current use of insulin ([facility]) GLUCOSE, WHOLE BLOOD Routine 08/25/2022 7:21 PM EDT Type 2 diabetes mellitus with diabetic polyneuropathy, with long-term current use of insulin ([facility]) documented in this encounter Results * High Sensitivity Troponin I (09/09/2022 2:33 PM EDT) Pathologist [facility] TROPONIN I HIGH SENSITIVITY 4.4 <3.5 - 17.0 ng/L [facility] Comment:The Lux high sens itivity Troponin-I results should beused in conjunction with other diagnostic information suchas ECG, clinical observations and information, and patientsymptoms to aid in the diagnosis of OR. 09/09/2022 2:33 PM EDT 09/09/2022 2:37 PM EDT us [facility] External Provider LAB BLO OD ORDERABLES Final Result [facility] [address] [place] [phone] * (ABNORMAL) Basic Metabolic Panel (09/09/2022 2:33 PM EDT) Sodium 137 135 - 145 mmol/L [facility] Potassium 4.5 3.3 - 5.1 mmol/L [facility] Chloride 106 96 - 108 mmol/L [facility] Carbon Dioxide 22 22 - 29 mmol/L [facility] Anion Gap 14 12 - 20 [facility] Urea Nitrogen (BUN) 15 9 - 16 mg/dL [facility] Creatinine, Serum 1.08 0.5 - 1.4 mg/dL [facility] Creatinine Clr Calc Pharmacy 61.6 [facility] Comment:Provided height and weight: 162.56 cm,87.9 kg.eGFR (calculated from the MDRD study equation) and eCrCl(calculated from the Cockcroft-Gault equation) are based ondifferent parameters and may not yield comparable results.If eCrCl result is absurd, please check patient'sheight/weight. Estimated Glomerular Filt Rate 52 [facility] Comment:NOTE: For -Am erican individuals, multiply the result by 1.210.Chronic Kidney Disease: Estimated GFR < 60 mL/min/[id number] Kidney Disease: Estimated GFR < 15 mL/min/1.73m2 Glucose 398(HH) 60 - 115 mg/dL [facility] Comment:Critical value for G LUR: Results called to and read backby: SCIARUD Person calling: JAROD Date: 09/09/22 Time: 1457 Calcium 9.8 8.4 - 10.2 mg/dL [facility] 09/09/2022 2:33 PM EDT 09/09/2022 2:37 PM EDT us [facility] External Provider LAB BLO OD ORDERABLES Final Result [facility] [address] [place] [address] [phone] * (ABNORMAL) CBC auto differential (09/09/2022 2:33 PM EDT) White Blood Count 10.6 4.8 - 10.8 X10*3/uL [facility] Red Blood Count 4.58 4.20 - 5.50 X10*6/uL [facility] Hemoglobin 14.8 12.0 - 16.0 g/dl [facility] Hematocrit 43.1 37.0 - 47.0 % [facility] Mean Corpuscular Volume 94.1 80.0 - 98.0 fL [facility] Mean Corpuscular Hemoglobin 32.3 27.0 - 33.0 pg [facility] Mean Corpuscular HGB Conc 34.3 31.0 - 35.0 g/dl [facility] Red Cell Distribution Width 12.6 11.0 - 16.0 % [facility] Platelet Count 196 160 - 400 X10*3/uL [facility] Mean Platelet Volume 11.5 9.4 - 12.3 fL [facility] Neutrophils Percent Auto 67.8 45 - 73 % [facility] Imm Gran Pct Auto 0.6(H) 0.0 - 0.4 % [facility] Lymphocytes Percent Auto 23.2 20 - 40 % [facility] Monocytes Percent Auto 6.8 2 - 11 % [facility] Eosinophils Percent Auto 1.1 0 - 4 % [facility] Basophils Percent Auto 0.5 0 - 2 % [facility] NRBC Pct Auto 0.0 0.0 - 0.2 /100WBC [facility] Neutrophils Absolute Auto 7.2 2.0 - 8.3 x10*3/uL [facility] Imm Gran Abs Auto 0.06(H) 0.00 - 0.03 X10*3/uL [facility] Lymphocytes Absolute Auto 2.5 1.2 - 4.9 X10*3/uL [facility] Monocytes Absolute Auto 0.7 0.1 - 1.2 X10*3/uL [facility] Eosinophils Absolute Auto 0.1 0.0 - 0.4 X10*3/uL [facility] Basophils Absolute Auto 0.1 0.0 - 0.2 X10*3/uL [facility] NRBC Abs Auto 0.000 0.0 - 0.012 X10*3/uL [facility] 09/09/2022 2:33 PM EDT 09/09/2022 2:37 PM EDT us [facility] External Provider LAB BLO OD ORDERABLES Final Result [facility] [address] [place] [phone] * (ABNORMAL) Basic Metabolic Panel (08/25/2022 7:28 PM EDT) Sodium 133(L) 135 - 145 mmol/L [facility] Potassium 4.4 3.3 - 5.1 mmol/L [facility] Chloride 103 96 - 108 mmol/L [facility] Carbon Dioxide 17(L) 22 - 29 mmol/L [facility] Anion Gap 17 12 - 20 [facility] Urea Nitrogen (BUN) 23(H) 9 - 16 mg/dL [facility] Creatinine, Serum 1.32 0.5 - 1.4 mg/dL [facility] Creatinine Clr Calc Pharmacy 52.6 [facility] Comment:Provided height and weight: 162.56 cm,95.254 kg.eGFR (calculated from the MDRD study equation) and eCrCl(calculated from the Cockcroft-Gault equation) are based ondifferent parameters and may not yield comparable results.If eCrCl result is absurd, please check patient'sheight/weight. Estimated Glomerular Filt Rate 41 [facility] Comment:NOTE: For -Am erican individuals, multiply the result by 1.210.Chronic Kidney Disease: Estimated GFR < 60 mL/min/1.25x1Snjtpr Kidney Disease: Estimated GFR < 15 mL/min/1.73m2 Glucose 509(HH) 60 - 115 mg/dL [facility] Comment:Critical value for t est(s): GLUR Results called to and readback by: ROSANNA Person calling: JOSHUA Date: 08/25/22 Time:2018 Calcium 10.0 8.4 - 10.2 mg/dL [facility] 08/25/2022 7:28 PM EDT 08/25/2022 7:31 PM EDT us [facility] External Provider LAB BLO OD ORDERABLES Final Result [facility] [address] [place] [phone] * CBC auto differential (08/25/2022 7:28 PM EDT) White Blood Count 9.1 4.8 - 10.8 X10*3/uL [facility] Red Blood Count 4.49 4.20 - 5.50 X10*6/uL [facility] Hemoglobin 14.2 12.0 - 16.0 g/dl [facility] Hematocrit 41.4 37.0 - 47.0 % [facility] Mean Corpuscular Volume 92.2 80.0 - 98.0 fL [facility] Mean Corpuscular Hemoglobin 31.6 27.0 - 33.0 pg [facility] Mean Corpuscular HGB Conc 34.3 31.0 - 35.0 g/dl [facility] Red Cell Distribution Width 12.4 11.0 - 16.0 % [facility] Platelet Count 182 160 - 400 X10*3/uL [facility] Mean Platelet Volume 11.7 9.4 - 12.3 fL [facility] Neutrophils Percent Auto 60.5 45 - 73 % [facility] Imm Gran Pct Auto 0.3 0.0 - 0.4 % [facility] Lymphocytes Percent Auto 28.8 20 - 40 % [facility] Monocytes Percent Auto 7.9 2 - 11 % [facility] Eosinophils Percent Auto 2.1 0 - 4 % [facility] Basophils Percent Auto 0.4 0 - 2 % [facility] NRBC Pct Auto 0.0 0.0 - 0.2 /100WBC [facility] Neutrophils Absolute Auto 5.5 2.0 - 8.3 x10*3/uL [facility] Imm Gran Abs Auto 0.03 0.00 - 0.03 X10*3/uL [facility] Lymphocytes Absolute Auto 2.6 1.2 - 4.9 X10*3/uL [facility] Monocytes Absolute Auto 0.7 0.1 - 1.2 X10*3/uL [facility] Eosinophils Absolute Auto 0.2 0.0 - 0.4 X10*3/uL [facility] Basophils Absolute Auto 0.0 0.0 - 0.2 X10*3/uL [facility] NRBC Abs Auto 0.000 0.0 - 0.012 X10*3/uL [facility] 08/25/2022 7:28 PM EDT 08/25/2022 7:31 PM EDT [facility] External Provider LAB BLO OD ORDERABLES Final Result Performing Organization Address City/[facility] Co de Phone Number [facility] [address] [place] [phone] * (ABNORMAL) GLUCOSE, WHOLE BLOOD (08/25/2022 7:21 PM EDT) [facility] Signature Glucose, Whole Blood 481(HH) 60 - 115 mg/dL [facility] Comment:METER #: [id number] 1 08/25/2022 7:21 PM EDT 08/25/2022 7:25 PM EDT [facility] External Provider LAB BLO OD ORDERABLES Final Result Performing Organization Address [facility]/ZIP Co de Phone Number [facility] [address] [place] [address] [phone] documented in this encounter Visit Diagnoses Diagnosis Type 2 diabetes mellitus with diabetic polyneuropathy, with long-term current use of insulin ([facility])- Primary documented in this encounter Care Teams Dairy Clerk Relationship Specialty Start Date End Date Juliet Adhikari MD [address] [place] [phone] PCP - General Internal Medicine 02/15/12 documented as of this encounter
[2025-01-09 05:26] LABS: Troponin-I High Sensitivity 4.5 ng/L (<3.5-17.0)
[2025-01-09] MEDS: Magnesium Hydrox/Alum Hydrox 30 ML ORAL.SUSP PO (05:58)
[2025-01-09] MEDS: Lidocaine HCl Viscous 2 % 15 ML SOLUTION MUCOUS MEM (05:59)
--- NOTE | 2025-01-09 06:25 | ED.ABDPAIN ---
HPI - Abdominal Pain General Chief Complaint: Abdominal Pain Stated Complaint: UPPER ABDOMINAL PAIN/NAUSEA Time Seen by Provider: 01/09/25 06:20 Source: patient Mode of arrival: ambulatory Limitations: no limitations History of Present Illness ED Provider: DR. Iniguez HPI narrative: 59-year-old female with pertinent history of polysubstance use disorder, mood disorder, insulin-dependent diabetes, HTN, HLD, GERD, came in for evaluation of upper abdominal pain that has been bothering the patient for the last few months pain is mostly in the upper abdomen feeling burning sensation in the epigastric area pain is constant, no clear aggravating factor or relieving factor, no nausea, no vomiting, normal bowel movement, passing flatus. History significant for cholecystectomy and partial hysterectomy. PCP treating the patient's pain as diabetic gastroparesis. Related Data Home Medications ?Medication ?Instructions ?Recorded ?Confirmed gabapentin 800 mg tablet 800 mg PO TID PRN Pain 07/07/23 01/04/25 rosuvastatin 20 mg tablet 20 mg PO BEDTIME 07/07/23 01/04/25 amlodipine 5 mg tablet 5 mg PO DAILY 09/23/23 01/04/25 aripiprazole 15 mg tablet 15 mg PO DAILY 09/23/23 01/04/25 diclofenac sodium 1 % topical gel 4 g topical QID PRN Pain 09/23/23 01/04/25 omeprazole 40 mg capsule,delayed 40 mg PO DAILY PRN Acid Reflux 09/23/23 01/04/25 release duloxetine 20 mg capsule,delayed 20 mg PO BID 01/04/25 01/04/25 release Previous Rx's ?Medication ?Instructions ?Recorded blood sugar diagnostic (FreeStyle #150 ea 04/16/21 Lite Strips) tizanidine 2 mg tablet 2 mg PO TID PRN muscle spasticity 07/07/23 #90 tabs aspirin 81 mg chewable tablet 81 mg PO DAILY #1 tab 09/25/23 atorvastatin 80 mg tablet 80 mg PO BEDTIME #1 tab 09/25/23 clopidogrel 75 mg tablet 75 mg PO DAILY #1 tab 09/25/23 lidocaine 4 % topical patch 1 patch transdermal DAILY #1 ea 09/25/23 (Lidocaine Pain Relief) morphine 2 mg/mL intravenous 2 mg IVPUSH Q4H PRN severe pain #1 09/25/23 syringe mL oxycodone 5 mg tablet 5 mg PO Q6H PRN pain,moder #1 tab 09/25/23 oxycodone 5 mg tablet 5 mg PO BID PRN pain #10 tabs 11/08/23 ibuprofen 600 mg tablet 600 mg PO Q8H PRN pain #14 tabs 01/07/24 blood-glucose sensor (FreeStyle #2 ea 01/04/25 Kelle 3 Sensor device) glucagon 3 mg/actuation nasal 3 mg intranasal ONCE #1 ea 01/04/25 spray (Baqsimi) insulin aspart U-100 100 unit/mL 32 - 38 unit (0.32 - 0.38 mL) 01/04/25 (3 mL) subcutaneous pen (Novolog subcut TIDWM #30 mL FlexPen U-100 Insulin aspart) insulin degludec 200 unit/mL (3 88 unit (0.44 mL) subcut BEDTIME 01/04/25 mL) subcutaneous pen (Tresiba #18 mL FlexTouch U-200 insulin) omeprazole 40 mg capsule,delayed 40 mg PO DAILY #14 caps 01/09/25 release ondansetron 4 mg disintegrating 4 mg PO Q8H PRN nausea and 01/09/25 tablet vomiting #7 tabs oxycodone 5 mg tablet 5 mg PO Q8H PRN pain #7 tabs 01/09/25 Allergies Allergy/AdvReac Type Severity Reaction Status Date / Time penicillin V Allergy Unknown Hives Verified 01/09/25 04:52 Penicillins Allergy Unknown HIVES Verified 01/09/25 04:52 adhesive Allergy Rash Verified 01/09/25 04:52 morphine Allergy Itching Verified 01/09/25 08:59 Review of Systems Review of Systems All other systems are reviewed and are negative Constitutional: Reports as per HPI and Reports no additional constitutional complaints Eyes: Reports as per HPI and Reports no additional eye complaints Reports system reviewed and no additional complaints, except as documented Cardiovascular: Reports as per HPI and Reports no additional cardiovascular complaints Respiratory: Reports as per HPI and Reports no additional respiratory complaints Gastrointestinal: Reports as per HPI and Reports no additional gastrointestinal complaints Genitourinary: Reports no additional female genitourinary complaints Musculoskeletal: Reports no additional musculoskeletal complaints Skin/Breast: Reports system reviewed and no additional complaints, except as docu Psychiatric: Reports no additional psychiatric complaints Endocrine: Reports no additional endocrine complaints Hematologic/Lymphatic: Reports no additional hematologic/lymphatic complaints Allergic/Immunologic: Reports no additional allergic/immunologic complaints Reports system reviewed and no additional complaints, except as documented and Reports Abnormal speech present [facility] Past Medical History Medical History Patellofemoral syndrome Tear of meniscus of right knee COVID-19 Tear of meniscus of right knee as current injury 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 DM2 (diabetes mellitus, type 2) Depressed Anxiety Bipolar 1 disorder Diabetes 1.5, managed as type 1 Surgical History H/O adenoidectomy History of tubal ligation History of cholecystectomy History of partial hysterectomy History of dental surgery Social History Social History Household Members: Children Household Members Other:: daughter Housing: Apartment Do you presently have visiting nurse or other home services: No Alcohol intake: current Alcohol intake frequency: holidays/special occasions only Alcohol type: wine Patient Tobacco Use Status: Current everyday Tobacco user Tobacco use type: Cigarette Cigarettes Per Day: 20 e-Cigarette/Vaping Use: Never Used Second Hand Smoke Exposure: Yes Substance Use Type: Marijuana Advance Directives: No Advance Directives Information Provided: Yes Do you have a plan to hurt others: No Plan service: No Current occupational status: disabled Physical Exam ED Vital Signs: Vital Signs - 24 hr 01/09/25 04:48 01/09/25 07:31 01/09/25 08:52 Temperature 98.1 F 98 F Pulse Rate 77 69 Respiratory Rate 16 18 15 Blood Pressure 125/71 158/83 H Pulse Oximetry 97 97 Oxygen Delivery Method Room Air Room Air 01/09/25 10:11 Temperature 98 F Pulse Rate 67 Respiratory Rate 16 Blood Pressure 132/76 Pulse Oximetry 98 Oxygen Delivery Method Room Air BMI result Body Mass Index 32.6 Vital signs have been reviewed and appear to be correct. Blood pressure elevated. Heart rate normal. Respiratory rate normal. Temperature normal. Oxygen saturation normal. Appearance: Alert. Oriented X3. No acute distress. Head: Normal external exam. Normocephalic. Atraumatic. No Maxwell signs noted. No raccoon eyes noted Eyes: PERRLA. EOMI. Conjunctiva and sclera normal. Eyelids normal. ENT: TM's Normal. Pharynx normal. Uvula midline. Moist mucous membranes. No trismus noted. No drooling noted. No muffled voice noted. Neck: Normal inspection. Neck supple. FROM. No adenopathy. Thyroid Normal. No meningeal signs. No neck mass noted. CVS: Normal heart rate and rhythm. Heart sound normal. No murmurs noted. Pulses normal throughout. Respiratory: No respiratory distress. Painless inspiration. Breath sounds normal. No wheezes/rales/rhonchi noted. Chest nontender. No accessory muscle usage noted or decreased air movement noted. Abdomen: Soft and nontender. Bowel sounds normal in all 4 quadrants. No distention noted. No organomegaly noted. No visible injury noted. Back: No CVA tenderness. Full range of motion noted. Skin: Skin warm and dry. Normal skin color. Normal skin turgor. No rashes/lesions/lacerations noted. Extremities: No lower extremity edema. Extremities exhibit normal range of motion. Extremities nontender. Neuro: Oriented X 3. Cranial nerve exam: II-XII are grossly intact No motor deficit. No sensory deficit. Reflexes normal. Course Reevaluation(s) Reevaluation #1: Acute on chronic abdominal pain is likely secondary to diabetic gastroparesis, patient was prescribed gabapentin for her chronic pain with out for relief. Will discharge on Prilosec, few pills of oxycodone, and follow-up with GI. Time: 10:54 Medical Decision Making Differential Diagnosis Differential Diagnoses: The differential diagnosis associated with the presentation includes (SBO, gastritis, gastroenteritis, gastroparesis, gallbladder disease, electrolyte derangement, severe anemia.) Admission/Observation Consideration of admission/observation: Escalation of care including admission/observation considered Lab Data MDM Lab Attestation statement: I reviewed the patient's lab results. 01/09/25 04:58 01/09/25 04:58 Labs: Lab Results 01/09/25 01/09/25 Range/Units 04:58 08:57 WBC 9.2 (4.8-10.8) X10*3/uL RBC 4.06 L (4.20-5.50) X10*6/uL Hgb 13.3 (12.0-16.0) g/dl Hct 38.6 (37.0-47.0) % MCV 95.1 (80.0-98.0) fL MCH 32.8 (27.0-33.0) pg MCHC 34.5 (31.0-35.0) g/dl RDW 12.6 (11.0-16.0) % Plt Count 200 (160-400) X10*3/uL MPV 10.8 (9.4-12.3) fL Immature Gran % (Auto) 0.3 (0.0-0.4) % Neut % (Auto) 40.6 L (45-73) % Lymph % (Auto) 45.7 H (20-40) % Kenton % (Auto) 8.4 (2-11) % Eos % (Auto) 4.5 H (0-4) % Baso % (Auto) 0.5 (0-2) % Lymph # (Auto) 4.2 (1.2-4.9) X10*3/uL Kenton # (Auto) 0.8 (0.1-1.2) X10*3/uL Eos # (Auto) 0.4 (0.0-0.4) X10*3/uL Baso # (Auto) 0.1 (0.0-0.2) X10*3/uL Abs Immat Gran (auto) 0.03 (0.00-0.03) X10*3/uL Absolute Neuts (auto) 3.7 (2.0-8.3) x10*3/uL Absolute Nucleated RBC 0.000 (0.0-0.012) X10*3/uL Nucleated RBC % (auto) 0.0 (0.0-0.2) /100WBC Sodium 139 (135-145) mmol/L Potassium 4.1 (3.3-5.1) mmol/L Chloride 110 H (96-108) mmol/L Carbon Dioxide 22 (22-29) mmol/L Anion Gap 11 L (12-20) BUN 27 H (9-16) mg/dL Creatinine 0.88 (0.5-1.4) mg/dL Estim Creat Clear Calc 72.2 Estimated GFR > 60 Random Glucose 199 H (60-115) mg/dL Calcium 10.6 H (8.4-10.2) mg/dL Total Bilirubin 0.2 (0.0-1.0) mg/dL AST 18 (5-31) U/L ALT 14 (0-31) U/L Alkaline Phosphatase 130 H (39-117) U/L Troponin I High Sens 4.5 (<3.5-17.0) ng/L Total Protein 7.2 (6.5-8.0) g/dL Albumin 3.7 (3.5-5.0) g/dL Lipase 67 (8-78) U/L Urine Color Yellow Urine Appearance Clear Urine pH 5.0 (5.0-9.0) Ur Specific Jefferson >= 1.030 H (1.005-1.025) Urine Protein 100 (2+) H (Neg-Trace) mg/dL Urine Glucose (UA) Negative (Negative) mg/dL Urine Ketones Negative (Negative) mg/dL Urine Blood Negative (Negative) Urine Nitrite Negative (Negative) Ur Leukocyte Esterase Negative (Negative) Urine RBC 0-2 (0-2) /HPF Urine WBC 6-10 H (0-5) /HPF Ur Squamous Epith Cells 0-2 (0-2) /HPF Urine Bacteria None Seen (None Seen) Hyaline Casts 0-2 (0-2) /LPF Independent Interpretation I performed an independent interpretation of an: CT Scan (Abdomen pelvis:No intestinal bowel obstruction pattern. Small fat-containing umbilical hernia. Atherosclerosis disease. Hepatomegaly. Bilateral renal cysts. ) Radiology Impression Discussion of test interpretation with radiology: I have reviewed the radiologist's reading. Medications Administered Discontinued Medications Generic Name Dose Route Start Last Admin Trade Name Freq PRN Reason Stop Dose Admin Al Hydroxide/Mg Hydroxide 30 ml 01/09/25 05:46 01/09/25 05:58 Magnesium Hydrox/Alum Hydrox 30 Ml Oral.Susp PO 01/09/25 05:47 30 ml ONCE ONE Administration Diphenhydramine HCl 25 mg 01/09/25 09:07 01/09/25 09:35 Diphenhydramine Hcl 25 Mg Capsule PO 01/09/25 09:08 25 mg ONCE ONE Administration Famotidine 20 mg 01/09/25 05:46 01/09/25 05:58 Famotidine/Pf 20 Mg/2 Ml Vial IVPUSH 01/09/25 05:47 20 mg ONCE ONE Administration Acetaminophen 1,000 mg in 100 mls @ 400 mls/hr 01/09/25 06:28 01/09/25 07:33 Ofirmev IV 01/09/25 06:42 Infused ONCE ONE Infusion Iohexol 85 ml 01/09/25 07:50 01/09/25 07:51 Iohexol 350 Mg/Ml 100 Ml Infus..Btl IV 01/09/25 07:51 85 ml ONCE ONE Administration Lidocaine HCl 15 ml 01/09/25 05:46 01/09/25 05:59 Lidocaine Hcl Viscous 2 % 15 Ml Solution MUCOUS MEM 01/09/25 05:47 15 ml ONCE ONE Administration Morphine Sulfate 2 mg 01/09/25 08:41 01/09/25 08:52 Morphine Sulfate 2 Mg/Ml Cartridge IVPUSH 01/09/25 08:42 2 mg ONCE ONE Administration Protocol Discharge Plan Discharge Clinical Impression: Chronic abdominal pain, Diabetic gastroparesis Patient Disposition: Home, Self-Care Instructions: Diabetic Gastroparesis (DC), Abdominal Pain (ED) Prescriptions: New omeprazole 40 mg capsule,delayed release(DR/EC) 40 mg PO DAILY Qty: 14 0RF oxycodone 5 mg tablet 5 mg PO Q8H PRN (Reason: pain) Qty: 7 0RF Rx Instructions: Partial Fill upon patient request. ondansetron 4 mg tablet,disintegrating 4 mg PO Q8H PRN (Reason: nausea and vomiting) Qty: 7 0RF No Action ibuprofen 600 mg tablet 600 mg PO Q8H PRN (Reason: pain) Qty: 14 0RF amlodipine 5 mg tablet 5 mg PO DAILY aripiprazole 15 mg tablet 15 mg PO DAILY diclofenac sodium 1 % gel 4 g topical QID PRN (Reason: Pain) omeprazole 40 mg capsule,delayed release(DR/EC) 40 mg PO DAILY PRN (Reason: Acid Reflux) atorvastatin 80 mg Tablet 80 mg PO BEDTIME Qty: 1 0RF lidocaine [Lidocaine Pain Relief] 4 % Adhesive Patch,Medicated 1 patch transdermal DAILY Qty: 1 0RF Protocol: Apply to: Apply to: left knee clopidogrel 75 mg Tablet 75 mg PO DAILY Qty: 1 0RF aspirin 81 mg Tablet,Chewable 81 mg PO DAILY Qty: 1 0RF oxycodone 5 mg Tablet 5 mg PO Q6H PRN (Reason: pain,moder) Qty: 1 0RF Rx Instructions: Partial Fill upon patient request. morphine 2 mg/mL Syringe 2 mg IVPUSH Q4H PRN (Reason: severe pain) Qty: 1 0RF Protocol: Hold for RR < HOLD and contact provider for RR < (bpm): 12 Rx Instructions: Partial Fill upon patient request. oxycodone 5 mg tablet 5 mg PO BID PRN (Reason: pain) Qty: 10 0RF Rx Instructions: Partial Fill upon patient request. (DME) FreeStyle Lite Strips Strip See Rx Instructions .ROUTE .MEDSUPPLY Qty: 150 11RF Rx Instructions: As directed four times a day duloxetine 20 mg capsule,delayed release(DR/EC) 20 mg PO BID (DME) FreeStyle Kelle 3 Sensor Device See Rx Instructions .Route Qty: 2 3RF Rx Instructions: To be changed every 15 days. insulin aspart U-100 [Novolog FlexPen U-100 Insulin] 100 unit/mL (3 mL) insulin pen 32 - 38 unit subcut TIDWM Qty: 30 0RF insulin degludec [Tresiba FlexTouch U-200] 200 unit/mL (3 mL) insulin pen 88 unit subcut BEDTIME Qty: 18 3RF Baqsimi 3 mg/actuation spray,non-aerosol 3 mg intranasal ONCE Qty: 1 2RF rosuvastatin 20 mg tablet 20 mg PO BEDTIME gabapentin 800 mg tablet 800 mg PO TID PRN (Reason: Pain) tizanidine 2 mg tablet 2 mg PO TID PRN (Reason: muscle spasticity) Qty: 90 1RF Referrals: Juliet Adhikari MD [Primary Care Provider, Medical] Rissa Herrera MD [Physician, Gastroenterology] Print Language: Georgian
[2025-01-09] MEDS: iohexoL 350 MG/ML 100 ML INFUS..BTL 85 ML IV (07:51)
--- NOTE | 2025-01-09 08:45 | PC.NURSE ---
P T CONTINUES TO HAVE 7/10 PAIN AFTER TYLENOL. SAYS SHE HAS BEEN TAKING TYLENOL ALL NIGHT
--- NOTE | 2025-01-09 08:58 | PC.NURSE ---
Pt reports mild itching with morhpine of head and arms, not a new reactions.
[2025-01-09 09:06] LABS: Appearance Urine Clear; Glucose Urine UA Negative (Negative); PH 5.0 (5.0-9.0); Specific Gravity - Urine >= 1.030 (1.005-1.025); UMIC TRIGGER UACC YES
[2025-01-09 09:08] LABS: UACC Culture Trigger YES
== END 2025-01-09 12:44 | disposition home or self-care (01) ==
PROVIDERS: Emergency Provider Emergency Medicine; PCP Internal Medicine
DX: R10.9 Unspecified abdominal pain (principal); E11.43 Type 2 diabetes mellitus with diabetic autonomic (poly)neuropathy; K31.84 Gastroparesis; I10 Essential (primary) hypertension; Z79.4 Long term (current) use of insulin; Z79.899 Other long term (current) drug therapy
CPT/HCPCS: 36415; 74177; 80053; 81001; 83690; 84484; 85025; 87086; 93005; 96365; 96375; 99284; 99285; J0131; J1308; J2270; Q9967

== ENCOUNTER → 2025-01-09 04:52 | Outpatient (BNV) | payer OTHER, SELFPAY | PROVIDERS: Emergency Provider Emergency Medicine; PCP Internal Medicine; Visit Provider Internal Medicine Cardiovascular Disease | DX: R10.13 Epigastric pain (principal) | CPT/HCPCS: 93010 ==

== ENCOUNTER → 2025-01-09 06:28 | Outpatient (BNV) | payer OTHER, SELFPAY | PROVIDERS: Emergency Provider Emergency Medicine; PCP Internal Medicine; Visit Provider Radiology Diagnostic Radiology | DX: K42.9 Umbilical hernia without obstruction or gangrene (principal); I70.90 Unspecified atherosclerosis; N28.1 Cyst of kidney, acquired; R16.0 Hepatomegaly, not elsewhere classified | CPT/HCPCS: 74177 ==

== ENCOUNTER 2025-02-12 10:18 | Outpatient (REF) | payer OTHER, SELFPAY ==
--- OUTSIDE RECORDS SUMMARY | 2025-02-12 12:38 | XMS_ITS | Clinical Summary ---
Author Organization [facility] Address [address] [place] [phone] Phone Care Team Providers Care Box Office Manager Name Role Phone Willis Pearl MD Primary Care Provider [phone] Allergies Active Allergy Reactions Criticality Noted Date Comments Penicillins 01/16/2025 Medications gabapentin (NEURONTIN) 800 mg tablet Take by mouth. Active DULoxetine (CYMBALTA) [address] capsule Take 1 capsule (20 mg total) by mouth 1 (one) time each day. Do not crush or chew. Active insulin lispro 100 unit/mL injection Inject under the skin 3 (three) times a day before meals. -Administer within 15 minutes of a meal Active hyaluronate sodium (TRIVISC IATC) Inject into the joint. Active Encounters Date Type Department Care Team Description 01/16/2025 3:00 PM EDT Office Visit Orthopedic Surgery - [address] [place] [address] Allyson Leon PA Right hand pain (Primary Dx); CMC arthritis from Last 3 Months Social History Tobacco Use Types Packs/Day Years Used Date Smoking Tobacco: Never Assessed Comments Unknown Sex and Gender Information Value Date Recorded Sex Assigned at Not on file Legal Sex Female 10:12 AM EST Gender Identity Not on file Sexual Orientation Not on file Last Filed Vital Signs Vital Sign Reading Time Taken Comments Blood Pressure - - Pulse - - Temperature - - Respiratory Rate - - Oxygen Saturation - - Inhaled Oxygen Concentration - - Weight 86.6 kg (191 lb) 01/16/2025 2:56 PM EDT Height 162.6 cm (5' 4 ) 01/16/2025 2:56 PM EDT Body Mass Index 32.79 01/16/2025 2:56 PM EDT Plan of Treatment Upcoming Encounters Date Type Department Care Team (Late st Contact Info) Description 02/12/2025 3:00 PM EDT Office Visit Orthopedic Surgery - [place] [address] [place] [address] Beth Robbins MD [address] [place] [phone] Health Maintenance Due Date Last Done Comments Breast Cancer Screening 1964 Colorectal Cancer Screening: Colonoscopy 1964 Diabetes: Annual GFR (Glomerular Filtration Rate) 1964 Diabetes: Annual Foot Exam 1974 Diabetes: Annual Retina Eye Exam 1974 Cervical Cancer Screening: P ap Smear 1985 Hepatitis B Vaccines (2 of 3 - 19+ 3-dose series) 07/23/2002 06/25/2002 Pneumococcal Vaccine: 50+ Years (2 of 2 - PCV) 2014 08/19/2010 RSV Immunization Adult Patients (1 - Risk 50-74 years 1-dose series) 2014 Zoster Vaccines (1 of 2) 2014 DTaP,Tdap,and Td Vaccines (2 - Td or Tdap) 02/16/2021 02/16/2011 Depression Screening 04/18/2024 COVID-19 Vaccine (3 - 2024-2 6 season) 2024 03/31/2021, 01/10/2021 Influenza Vaccine (#1) 2024 03/31/2021 HIV Screening 12/27/2024 Hepatitis C Screening 12/27/2024 Social Influencers of Health Screening 12/27/2024 Diabetes: Annual Urine Albumin-Creatinine Ratio (uACR) 01/16/2025 Diabetes: Blood Sugar Contro l Test (HGBA1C) 06/20/2025 12/21/2024 Cholesterol Screening (Lipid Panel) 02/25/2027 02/25/2022 HIB Vaccines Aged Out No longer eligi [...] to complete this topic RSV Immunization Patients Under 20 months Aged Out No longer eligible b ased on patient's age to complete this topic Varicella Vaccines Aged Out No longer eligible based on patient's age to complete this topic Procedures Procedure Name Priority Date/Time Associated Diagnosis Comments XR HAND 3+ VIEWS RIGHT Routine 01/16/2025 3:48 PM EDT Right hand pain from Last 3 Months Results * XR Hand 3+ Views Right (01/16/2025 3:48 PM EDT) Anatomical Region Laterality Modality Upper Extremities, Hand Right Computed Radiography Narrative 01/16/2025 8:09 PM EDT Date of Visit: 01/16/2025 Reason for visit: Right hand and thumb pain Views: AP, lateral, oblique right hand Comparison: None Findings: Mild diffuse arthritic changes to the fingers. She does have moderate to severe right thumb basal joint arthritis, mild subluxation osteophyte formation and mild sclerosis Impression: Osteoarthritis right thumb basal joint. Allyson FERREIRA IMG XR PROCEDURES Final Resul t from Last 3 Months Insurance [facility] MEDICAID [place] [id number] Care Teams Box Office Manager Relationship Specialty Start Date End Date Willis Pearl MD [address] [place] [address] PCP - General 08/22/08
--- OUTSIDE RECORDS SUMMARY | 2025-02-12 12:38 | XMS_ITS | Clinical Summary ---
Author Organization [facility] Address [address] [place], [place] [id number] Phone Care Team Providers Care Visitor Use Assistant Name Role Phone Pcp, Unknown Primary Care [...] 02/16/2011 INFLUENZA VACCINE (#1) 2024 COVID-19 VACCINE (1 - 2024-2 6 season) 2024 SCREENING FOR DIABETES 01/08/2027 4, [...] Insurance [employer] REPLACEMENT [place]EL [id number] Care Teams Visitor Use Assistant Relationship Specialty Start Date End Date Pcp, Unknown PCP - General 01/29/24 Additional Source Comments The information contained in this document represents components of the legal health record. It is not the complete legal health record.[facility]
[2025-02-12 14:45] LABS: Alanine Aminotransferase 18 U/L (0-31); Albumin Level 4.0 g/dL (3.5-5.0); Alkaline Phosphatase 127 U/L (39-117); Anion Gap 11 (12-20); Aspartate Amino Transferase 23 U/L (5-31); Blood Urea Nitrogen 20 mg/dL (9-16); Calcium 10.8 mg/dL (8.4-10.2); Carbon Dioxide 23 mmol/L (22-29); Chloride 110 mmol/L (96-108); Cholesterol 260 mg/dL (<200); Estimated Glomerular Filt Rate 59; HDL Cholesterol 38 mg/dL (>40); Magnesium 2.1 mg/dL (1.6-2.6); Potassium 4.4 mmol/L (3.3-5.1); Sodium 140 mmol/L (135-145); Total Protein 7.7 g/dL (6.5-8.0); Triglycerides 321 mg/dL (<150)
[2025-02-12 15:08] LABS: Folate 5.4 ng/mL (> or = 4.0); Vitamin B12 673 pg/mL (200-900)
[2025-02-12 19:39] LABS: Microalbum/Creatinine Ratio Ur 531.8 ug/mg cr (<30)
== END 2025-02-12 10:19 | disposition home or self-care (01) ==
LOC: HO.CHCLDS 10:18
PROVIDERS: PCP Internal Medicine; Visit Provider Student in an Organized Health Care Education/Training Program
DX: E11.42 Type 2 diabetes mellitus with diabetic polyneuropathy (principal); R20.2 Paresthesia of skin; Z79.4 Long term (current) use of insulin
CPT/HCPCS: 36415; 80053; 80061; 82043; 82570; 82607; 82746; 83735; 84207

== ENCOUNTER 2025-03-07 16:00 | Emergency (ER) | payer OTHER, SELFPAY ==
[2025-03-07 16:08] VITALS: BP 148/78; PULSE 90; O2SAT 98
[2025-03-07 16:10] LABS: Glucose, Whole Blood 500 mg/dL (60-115)
[2025-03-07 16:22] VITALS: BP 119/56; PULSE 92; RESP 16; TEMP 36.8; O2SAT 100; BMI 33.5
[2025-03-07 16:52] LABS: MANUAL DIFF FLAG NO
[2025-03-07 16:58] LABS: Hematocrit 40.1 % (37.0-47.0); Hemoglobin 13.5 g/dl (12.0-16.0); Imm Gran Abs Auto 0.03 X10*3/uL (0.00-0.03); Imm Gran Pct Auto 0.3 % (0.0-0.4); Lymphocytes Absolute Auto 2.8 X10*3/uL (1.2-4.9); Mean Corpuscular HGB Conc 33.7 g/dl (31.0-35.0); Mean Corpuscular Hemoglobin 32.1 pg (27.0-33.0); Mean Corpuscular Volume 95.5 fL (80.0-98.0); NRBC Abs Auto 0.000 X10*3/uL (0.0-0.012); NRBC Pct Auto 0.0 /100WBC (0.0-0.2); Platelet Count 173 X10*3/uL (160-400); Red Blood Count 4.20 X10*6/uL (4.20-5.50); White Blood Count 9.5 X10*3/uL (4.8-10.8)
--- NOTE | 2025-03-07 17:08 | ECG_ITS ---
Test Reason : weakness Blood Pressure : */* mmHG Vent. Rate : 83 BPM Atrial Rate : 83 BPM P-R Int : 116 ms QRS Dur : 116 ms QT Int : 346 ms P-R-T Axes : 0 13 35 degrees QTcB Int : 406 ms Normal sinus rhythm Normal ECG When compared with ECG of 09-Jan-2025 04:59, No significant change was found Referred By: Luisa Osborne Electronically Signed By: ELIZABETH MEEK
--- NOTE | 2025-03-07 17:08 | ED.GENADULT ---
HPI - General Adult General Chief complaint: General Medical Stated complaint: DKA POC 507, dizzy, weak, headache Time Seen by Provider: 03/07/25 17:07 Source: patient and EMS Mode of arrival: EMS Limitations: no limitations History of Present Illness HPI narrative: 59 year old female with diabetes who presents via EMS for markedly elevated blood glucose. The patient reports that for the past two weeks her blood sugars have remained >300 mg/dL despite dietary changes (avoiding cakes, sweets, and soda) and use of Humalog insulin per a sliding-scale graphic provided by a newly established inventory manager. Today her home glucometer only displayed ?HI,? prompting her to seek care. EMS measured BG >500 mg/dL; in the ED her serum glucose has been in the 490?510 mg/dL range. She denies recent fever, cough, upper respiratory symptoms, or chest pain. She received an anti-emetic in the ambulance for nausea but feels no nausea presently. She endorses significant psychosocial stress at home and chronic emotional distress (bipolar disorder, psychosis, depression, anxiety) with frequent crying and insomnia. Additional symptoms include constant burning pain in the left upper quadrant/left flank for ~2 months, described as superficial and worsened by touch. Prior CT and laboratory evaluation reportedly unrevealing. She carries a history of diabetic neuropathy, gastroparesis, fatty liver disease, and recent labs suggesting early kidney issues and unspecified liver abnormality for which an outpatient ultrasound is scheduled 05/11. She also had a cardiac stent placed in the past. Bowel habits alternate between diarrhea and constipation; no dysuria or hematuria. No current nausea or vomiting. She notes itchy, peeling palms when exposed to penicillin. Current medications noted: Humalog insulin, gabapentin 600 mg TID, duloxetine 20 mg BID. She reports some non-adherence due to medication side effects (gabapentin causes next-day ?loopy? feeling). Cardiac history notable for prior stent; cardiac enzymes today are low. Related Data Home Medications ?Medication ?Instructions ?Recorded ?Confirmed gabapentin 800 mg tablet 800 mg PO TID PRN Pain 07/07/23 01/04/25 rosuvastatin 20 mg tablet 20 mg PO BEDTIME 07/07/23 01/04/25 amlodipine 5 mg tablet 5 mg PO DAILY 09/23/23 01/04/25 aripiprazole 15 mg tablet 15 mg PO DAILY 09/23/23 01/04/25 diclofenac sodium 1 % topical gel 4 g topical QID PRN Pain 09/23/23 01/04/25 omeprazole 40 mg capsule,delayed 40 mg PO DAILY PRN Acid Reflux 09/23/23 01/04/25 release duloxetine 20 mg capsule,delayed 20 mg PO BID 01/04/25 01/04/25 release Previous Rx's ?Medication ?Instructions ?Recorded blood sugar diagnostic (FreeStyle #150 ea 04/16/21 Lite Strips) tizanidine 2 mg tablet 2 mg PO TID PRN muscle spasticity 07/07/23 #90 tabs aspirin 81 mg chewable tablet 81 mg PO DAILY #1 tab 09/25/23 atorvastatin 80 mg tablet 80 mg PO BEDTIME #1 tab 09/25/23 clopidogrel 75 mg tablet 75 mg PO DAILY #1 tab 09/25/23 lidocaine 4 % topical patch 1 patch transdermal DAILY #1 ea 09/25/23 (Lidocaine Pain Relief) morphine 2 mg/mL intravenous 2 mg IVPUSH Q4H PRN severe pain #1 09/25/23 syringe mL oxycodone 5 mg tablet 5 mg PO Q6H PRN pain,moder #1 tab 09/25/23 oxycodone 5 mg tablet 5 mg PO BID PRN pain #10 tabs 11/08/23 ibuprofen 600 mg tablet 600 mg PO Q8H PRN pain #14 tabs 01/07/24 glucagon 3 mg/actuation nasal 3 mg intranasal ONCE #1 ea 01/04/25 spray (Baqsimi) insulin aspart U-100 100 unit/mL 32 - 38 unit (0.32 - 0.38 mL) 01/04/25 (3 mL) subcutaneous pen (Novolog subcut TIDWM #30 mL FlexPen U-100 Insulin aspart) insulin degludec 200 unit/mL (3 88 unit (0.44 mL) subcut BEDTIME 01/04/25 mL) subcutaneous pen (Tresiba #18 mL FlexTouch U-200 insulin) omeprazole 40 mg capsule,delayed 40 mg PO DAILY #14 caps 01/09/25 release ondansetron 4 mg disintegrating 4 mg PO Q8H PRN nausea and 01/09/25 tablet vomiting #7 tabs oxycodone 5 mg tablet 5 mg PO Q8H PRN pain #7 tabs 01/09/25 blood-glucose sensor (FreeStyle #2 ea 01/24/25 Kelle 3 Sensor device) blood-glucose,dredge engineer,cont #1 ea 01/24/25 (FreeStyle Kelle 3 [place]) Allergies Allergy/AdvReac Type Severity Reaction Status Date / Time penicillin V Allergy Unknown Hives Verified 03/07/25 16:25 Penicillins Allergy Unknown HIVES Verified 03/07/25 16:25 adhesive Allergy Rash Verified 03/07/25 16:25 morphine Allergy Itching Verified 03/07/25 16:25 Review of Systems Review of Systems: as per HPI, full review of systems performed and negative but for the above mentioned pertinent positives and negatives. [facility] Past Medical History Medical History Diabetic polyneuropathy associated with type 2 diabetes mellitus Spinal stenosis of lumbar region without neurogenic claudication Hx of colonic polyp Mood disorder Stage 2 chronic kidney disease Irritable bowel syndrome Hypercholesteremia Diabetic nephropathy associated with type 2 diabetes mellitus Patellofemoral syndrome Tear of meniscus of right knee COVID-19 Tear of meniscus of right knee as current injury 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 DM2 (diabetes mellitus, type 2) Depressed Anxiety Bipolar 1 disorder Diabetes 1.5, managed as type 1 Surgical History H/O adenoidectomy History of tubal ligation History of cholecystectomy History of partial hysterectomy History of dental surgery Social History Social History Household Members: Children Household Members Other:: daughter Housing: Apartment Do you presently have visiting nurse or other home services: No Alcohol intake: current Alcohol intake frequency: holidays/special occasions only Alcohol type: wine Patient Tobacco Use Status: Current everyday Tobacco user Tobacco use type: Cigarette Cigarettes Per Day: 20 Smoked in Last 30 Days: No e-Cigarette/Vaping Use: Never Used Second Hand Smoke Exposure: Yes Use of substances other than those prescribed or required for medical reasons: No Substance Use Type: Marijuana Advance Directives: No Advance Directives Information Provided: No Do you have a plan to hurt others: No Plan Patient : No service: No Current occupational status: disabled Physical Exam ED Exam Exam: GENERAL: Chronically ill-Appearing, appears uncomfortable. SKIN: Normal skin color for ethnicity, warm, dry, no rashes noted. HEENT:? Normocephalic, atraumatic, no stridor, dry mucous membranes, dentition intact, EOMI. NECK: Soft, supple, full ROM, midline structures nontender, no step-offs, no deformities, no lymphadenopathy. CHEST: Heart regular rhyhtm, no murmurs, symmetric chest rise and fall. PULMONARY: Clear to auscultation bilaterally, diminished at the bases, no labored breathing, no wheezes/rhales/rhonchi. ABDOMINAL: Soft, nondistended, nontender, positive bowel sounds in all quadrants. : Deferred. MUSCULOSKELETAL: Normal tone, full range of motion, no deformities, no peripheral edema. NEURO: Alert and oriented x3, CN II through XII intact, equal strength and sensation bilateral upper and lower extremities, no focal neurologic deficits.? PSYCHIATRIC: Flat affect, fluid speech, good eye contact and appropriate demeanor. Vital Signs: Vital Signs - 24 hr 03/07/25 16:22 03/07/25 20:05 Temperature 98.2 F 98.1 F Pulse Rate 92 74 Respiratory Rate 16 14 Blood Pressure 119/56 L 144/65 H Pulse Oximetry 100 98 Oxygen Delivery Method Room Air Room Air BMI result Body Mass Index 33.5 Medications Administered Discontinued Medications Generic Name Dose Route Start Last Admin Trade Name Freq PRN Reason Stop Dose Admin Diazepam 2 mg 03/07/25 20:14 03/07/25 20:24 Diazepam 2 Mg Tablet PO 03/07/25 20:15 2 mg ONCE ONE Administration Gabapentin 600 mg 03/07/25 20:14 03/07/25 20:23 Gabapentin 600 Mg Tablet PO 03/07/25 20:15 600 mg ONCE ONE Administration Sodium Chloride 1,000 mls @ 999 mls/hr 03/07/25 18:30 03/07/25 20:24 Ns IV 03/07/25 19:30 Infused .Q1H1M JANINE Infusion Insulin Human Lispro 8 unit 03/07/25 18:26 03/07/25 18:59 Insulin Lispro 100 Unit/Ml 3 Ml Vial SUBCUT 03/07/25 18:27 8 unit ONCE ONE Administration Medical Decision Making Medical Decision Making MDM Narrative: Emergency Department Course ? Initial serum glucose in the 500 mg/dL range; repeat values remain in high 400s. ? Cardiac enzymes low; no evidence of acute cardiac injury. ? IV fluids started; plan to increase rate after initial minimal infusion. ? Order placed for insulin therapy and additional blood work. ? Plan to administer pain control and consider gabapentin for neuropathic pain/insomnia. Assessment & Plan Diagnosis: 1. Severe hyperglycemia in known diabetes mellitus 2. Neuropathic pain, likely diabetic neuropathy (LUQ burning pain) 3. Chronic mood disorder (bipolar disorder, psychosis, depression, anxiety) with insomnia 4. History of gastroparesis, fatty liver disease, early renal dysfunction (per outside labs) Plan: Continue IV fluids. Provide analgesia for neuropathic pain (IV/PO pain medication per ED formulary). Consider gabapentin dose in ED for pain and sleep as tolerated. Complete comprehensive blood work (labs pending). Monitor response to fluids and insulin; reassess glucose and symptoms. If blood glucose improves and patient feels better, plan for discharge with follow-up appointments: endocrinology on 04/10 and liver ultrasound on 05/11. Disposition Observation in ED for fluid and insulin therapy. Will discharge home if glucose normalizes and symptoms improve; patient did not drive and arrived via EMS. Differential Diagnosis Differential Diagnoses: The differential diagnosis associated with the presentation includes (as above) Admission/Observation Consideration of admission/observation: Escalation of care including admission/observation considered Lab Data MDM Lab Attestation statement: I reviewed the patient's lab results. 03/07/25 16:48 03/07/25 16:48 Labs: Lab Results 03/07/25 03/07/25 03/07/25 Range/Units 16:07 16:48 18:56 WBC 9.5 (4.8-10.8) X10*3/uL RBC 4.20 (4.20-5.50) X10*6/uL Hgb 13.5 (12.0-16.0) g/dl Hct 40.1 (37.0-47.0) % MCV 95.5 (80.0-98.0) fL MCH 32.1 (27.0-33.0) pg MCHC 33.7 (31.0-35.0) g/dl RDW 12.2 (11.0-16.0) % Plt Count 173 (160-400) X10*3/uL MPV 11.7 (9.4-12.3) fL Immature Gran % (Auto) 0.3 (0.0-0.4) % Neut % (Auto) 60.7 (45-73) % Lymph % (Auto) 29.8 (20-40) % Rich % (Auto) 6.4 (2-11) % Eos % (Auto) 2.3 (0-4) % Baso % (Auto) 0.5 (0-2) % Lymph # (Auto) 2.8 (1.2-4.9) X10*3/uL Rich # (Auto) 0.6 (0.1-1.2) X10*3/uL Eos # (Auto) 0.2 (0.0-0.4) X10*3/uL Baso # (Auto) 0.1 (0.0-0.2) X10*3/uL Abs Immat Gran (auto) 0.03 (0.00-0.03) X10*3/uL Absolute Neuts (auto) 5.7 (2.0-8.3) x10*3/uL Absolute Nucleated RBC 0.000 (0.0-0.012) X10*3/uL Nucleated RBC % (auto) 0.0 (0.0-0.2) /100WBC Sodium 134 L (135-145) mmol/L Potassium 4.5 (3.3-5.1) mmol/L Chloride 108 (96-108) mmol/L Carbon Dioxide 19 L (22-29) mmol/L Anion Gap 12 (12-20) BUN 27 H (9-16) mg/dL Creatinine 1.04 (0.5-1.4) mg/dL Estim Creat Clear Calc 61.9 Estimated GFR 54 POC Glucose 500 H* 301 H (60-115) mg/dL Random Glucose 490 H* (60-115) mg/dL Calcium 10.3 H (8.4-10.2) mg/dL Magnesium 2.0 (1.6-2.6) mg/dL Total Bilirubin 0.1 (0.0-1.0) mg/dL AST 14 (5-31) U/L ALT 14 (0-31) U/L Alkaline Phosphatase 117 (39-117) U/L Troponin I High Sens 3.7 (<3.5-17.0) ng/L Total Protein 7.0 (6.5-8.0) g/dL Albumin 3.7 (3.5-5.0) g/dL Beta-Hydroxybutyrate 0.07 (0.02-0.27) mmol/L 03/07/ Range/Units 20:03 WBC (4.8-10.8) X10*3/uL RBC (4.20-5.50) X10*6/uL Hgb (12.0-16.0) g/dl Hct (37.0-47.0) % MCV (80.0-98.0) fL MCH (27.0-33.0) pg MCHC (31.0-35.0) g/dl RDW (11.0-16.0) % Plt Count (160-400) X10*3/uL MPV (9.4-12.3) fL Immature Gran % (Auto) (0.0-0.4) % Neut % (Auto) (45-73) % Lymph % (Auto) (20-40) % Rich % (Auto) (2-11) % Eos % (Auto) (0-4) % Baso % (Auto) (0-2) % Lymph # (Auto) (1.2-4.9) X10*3/uL Rich # (Auto) (0.1-1.2) X10*3/uL Eos # (Auto) (0.0-0.4) X10*3/uL Baso # (Auto) (0.0-0.2) X10*3/uL Abs Immat Gran (auto) (0.00-0.03) X10*3/uL Absolute Neuts (auto) (2.0-8.3) x10*3/uL Absolute Nucleated RBC (0.0-0.012) X10*3/uL Nucleated RBC % (auto) (0.0-0.2) /100WBC Sodium (135-145) mmol/L Potassium (3.3-5.1) mmol/L Chloride (96-108) mmol/L Carbon Dioxide (22-29) mmol/L Anion Gap (12-20) BUN (9-16) mg/dL Creatinine (0.5-1.4) mg/dL Estim Creat Clear Calc Estimated GFR POC Glucose 210 H (60-115) mg/dL Random Glucose (60-115) mg/dL Calcium (8.4-10.2) mg/dL Magnesium (1.6-2.6) mg/dL Total Bilirubin (0.0-1.0) mg/dL AST (5-31) U/L ALT (0-31) U/L Alkaline Phosphatase (39-117) U/L Troponin I High Sens (<3.5-17.0) ng/L Total Protein (6.5-8.0) g/dL Albumin (3.5-5.0) g/dL Beta-Hydroxybutyrate (0.02-0.27) mmol/L Independent Historian Clinical information obtained from an independent historian. History obtained from or confirmed by: EMS External Record Review External record reviewed: Inpatient record Prescription Management I considered prescription management with: Pain Medication Social Determinants Patient?s care significantly limited by Social Determinants of Health including: Problems related to primary support group and Other Social Determinant of Health Discharge Plan Discharge Clinical Impression: Poorly controlled diabetes mellitus Patient Disposition: Home, Self-Care Instructions: Type 2 Diabetes Management for Adults (ED) Additional Instructions: Follow up with your inventory manager regarding her blood sugars. Continue to drink plenty of fluids. Monitor your blood sugars at home and report back to the inventory manager. Return to the ER with any new or worsening symptoms including: Worsening headaches, chest pain, difficulty breathing, inability to tolerate food or drink, any new symptom that concerns you. Call 911 with any medical emergency. Prescriptions: No Action (DME) FreeStyle Kelle 3 Sensor Device See Rx Instructions .Route Qty: 2 3RF Rx Instructions: To be changed every 15 days. (DME) FreeStyle Kelle 3 [place] Misc See Rx Instructions .Route Qty: 1 0RF Rx Instructions: As directed to monitor blood sugar ibuprofen 600 mg tablet 600 mg PO Q8H PRN (Reason: pain) Qty: 14 0RF omeprazole 40 mg capsule,delayed release(DR/EC) 40 mg PO DAILY Qty: 14 0RF oxycodone 5 mg tablet 5 mg PO Q8H PRN (Reason: pain) Qty: 7 0RF Rx Instructions: Partial Fill upon patient request. ondansetron 4 mg tablet,disintegrating 4 mg PO Q8H PRN (Reason: nausea and vomiting) Qty: 7 0RF amlodipine 5 mg tablet 5 mg PO DAILY aripiprazole 15 mg tablet 15 mg PO DAILY diclofenac sodium 1 % gel 4 g topical QID PRN (Reason: Pain) omeprazole 40 mg capsule,delayed release(DR/EC) 40 mg PO DAILY PRN (Reason: Acid Reflux) atorvastatin 80 mg Tablet 80 mg PO BEDTIME Qty: 1 0RF lidocaine [Lidocaine Pain Relief] 4 % Adhesive Patch,Medicated 1 patch transdermal DAILY Qty: 1 0RF Protocol: Apply to: Apply to: left knee clopidogrel 75 mg Tablet 75 mg PO DAILY Qty: 1 0RF aspirin 81 mg Tablet,Chewable 81 mg PO DAILY Qty: 1 0RF oxycodone 5 mg Tablet 5 mg PO Q6H PRN (Reason: pain,moder) Qty: 1 0RF Rx Instructions: Partial Fill upon patient request. morphine 2 mg/mL Syringe 2 mg IVPUSH Q4H PRN (Reason: severe pain) Qty: 1 0RF Protocol: Hold for RR < HOLD and contact provider for RR < (bpm): 12 Rx Instructions: Partial Fill upon patient request. oxycodone 5 mg tablet 5 mg PO BID PRN (Reason: pain) Qty: 10 0RF Rx Instructions: Partial Fill upon patient request. (DME) FreeStyle Lite Strips Strip See Rx Instructions .ROUTE .MEDSUPPLY Qty: 150 11RF Rx Instructions: As directed four times a day duloxetine 20 mg capsule,delayed release(DR/EC) 20 mg PO BID insulin aspart U-100 [Novolog FlexPen U-100 Insulin] 100 unit/mL (3 mL) insulin pen 32 - 38 unit subcut TIDWM Qty: 30 0RF insulin degludec [Tresiba FlexTouch U-200] 200 unit/mL (3 mL) insulin pen 88 unit subcut BEDTIME Qty: 18 3RF Baqsimi 3 mg/actuation spray,non-aerosol 3 mg intranasal ONCE Qty: 1 2RF rosuvastatin 20 mg tablet 20 mg PO BEDTIME gabapentin 800 mg tablet 800 mg PO TID PRN (Reason: Pain) tizanidine 2 mg tablet 2 mg PO TID PRN (Reason: muscle spasticity) Qty: 90 1RF Interventions: ED Discharge Assessment Last Done: 03/07/25 21:18 Discharge Date/Time: 03/07/25 21:18 Print Language: Occitan
[2025-03-07 17:22] LABS: Alanine Aminotransferase 14 U/L (0-31); Albumin Level 3.7 g/dL (3.5-5.0); Alkaline Phosphatase 117 U/L (39-117); Anion Gap 12 (12-20); Aspartate Amino Transferase 14 U/L (5-31); Blood Urea Nitrogen 27 mg/dL (9-16); Calcium 10.3 mg/dL (8.4-10.2); Carbon Dioxide 19 mmol/L (22-29); Chloride 108 mmol/L (96-108); Creatinine Clr Calc Pharmacy 61.9; Estimated Glomerular Filt Rate 54; Magnesium 2.0 mg/dL (1.6-2.6); Potassium 4.5 mmol/L (3.3-5.1); Sodium 134 mmol/L (135-145); Total Protein 7.0 g/dL (6.5-8.0)
[2025-03-07 17:45] LABS: Troponin-I High Sensitivity 3.7 ng/L (<3.5-17.0)
[2025-03-07 20:05] VITALS: BP 144/65; PULSE 74; RESP 14; TEMP 36.7; O2SAT 98
[2025-03-07 20:09] LABS: Glucose, Whole Blood 301 mg/dL (60-115)
[2025-03-07 20:09] LABS: Glucose, Whole Blood 210 mg/dL (60-115)
--- OUTSIDE RECORDS SUMMARY | 2025-03-07 21:00 | XMS_ITS | Encounter Summary ---
Author Organization [employer] Address [address] [place] [address] [address] [place] [address] Care Team Providers Care Assembler Watch Train Name Role Phone Juliet Adhikari MD Primary Care Provider [phone] Reason for Visit * Reason Comments Med Refill Encounter Details Date Type Department Care Team ([facility] Contact Info) Description 01/09/2024 Refill [facility] [address] [place], [place] [phone] Juliet Adhikari MD [address] [place], [place] [phone] Type 2 diabetes mellitus without complications (CMS/HCC) [...] Diagnosis Type 2 diabetes mellitus without complications (HCC) documented in this encounter Additional Health Concerns Assessment Noted Time PHQ-9 Depression Total Score: 14 024 10:42 AM EDT documented as of this encounter Care Teams Assembler Watch Train Relationship Specialty Start Date End Date Juliet Ahdikari MD [address] [place] [id number] PCP - General Internal Medicine 02/15/12 documented as of this encounter
--- OUTSIDE RECORDS SUMMARY | 2025-03-07 21:00 | XMS_ITS | Encounter Summary ---
Author Organization [employer] Address [address] [facility] [address] [place] [address] Care Team Providers Care Medical Management Trainer Name Role Phone Juliet Adhikari MD Primary Care Provider [phone] Reason for Visit * Reason Onset Date Comments Med Refill Appointment 01/08/2023 [facility] Encounter Details Date Type Department Care Team ([facility] st Contact Info) Description 01/08/2023 Refill [facility] [address] [place] [address] Roman Cummings FNP Social History Tobacco Use [...] pt regarding her appt for today as [id number]. pt request to cancel and re-schedule, Pt r/s for 02/10/23. documented in this encounter Plan of Treatment Not on file documented as of this encounter Visit Diagnoses Not on filedocumented in this encounter Additional Health Concerns Assessment Noted Time PHQ-9 Depression Total Score: 12 023 9:26 AM EDT documented as of this encounter Care Teams Medical Management Trainer Relationship Specialty Start Date End Date Juliet Adhikari MD [address] [place] [id number] PCP - General Internal Medicine 02/15/12 documented as of this encounter
--- OUTSIDE RECORDS SUMMARY | 2025-03-07 21:00 | XMS_ITS | Encounter Summary ---
Author Organization [employer] Address [address] [place] [address] [address] [place] [address] Care Team Providers Care Telegraph Inspector Name Role Phone Juliet Adhikari MD Primary Care Provider [phone] Reason for Visit * Reason Comments Med Refill Encounter Details Date Type Department Care Team ([facility] Contact Info) Description 01/02/2024 Refill [facility] [address] [place], [place] [phone] Juliet Adhikari MD [address] [place], [place] [phone] Type 2 diabetes mellitus without complications (CMS/HCC) [...] documented as of this encounter Care Teams Telegraph Inspector Relationship Specialty Start Date End Date Juleit Adhikari MD [address] [place] [id number] PCP - General Internal Medicine 02/15/12 documented as of this encounter
--- OUTSIDE RECORDS SUMMARY | 2025-03-07 21:00 | XMS_ITS | Clinical Summary ---
Author Organization [facility] Address [address] [place] [address] Phone Care Team Providers Care Student Ambassador Name Role Phone Juliet Adhikari MD Primary Care Provider [phone] [phone] Allergies Active Allergy Reactions Criticality Noted Date [...] (TRIVISC IATC) Inject into the joint. Active Active Problems Problem Noted Date Diagnosed Date Arthritis of carpometacarpal (CMC) joint of righ t thumb 02/12/2025 Carpal tunnel syndrome of right wrist 02/12/2025 Class 1 obesity 02/12/2025 Sleep apnea 02/12/2025 Diabetic polyneuropathy asso ciated with type 2 diabetes mellitus ([facility] V24, [facility] V28) 12/21/2024 Non-ST elevation NE (NSTEMI) ([facility] V24, [facility] V28) 11/02/2024 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 Diabetic nephropathy associa lilibeth with type 2 diabetes mellitus ([facility] V24, [facility] V28) 02/10/2021 Stage 2 chronic kidney disease 02/10/2021 Encounters Date Type Department Care Team Description 02/25/2025 Telephone Orthopedic Surgery - [facility] [address] [place] [phone] Diony Neena M 02/13/2025 Telephone Orthopedic Surgery [facility] 250 175 [facility] 250 [place] [phone] Neena Vora 02/12/2025 3:00 PM EDT Office Visit Orthopedic [facility] [address] [phone] Beth Robbins MD Arthritis of carpometacarpal (CMC) joint of right thumb (Primary Dx); Carpal tunnel syndrome of right wrist 01/16/2025 3:00 PM EDT Office Visit Orthopedic [facility] [address] [phone] Allyson Leon PA Right hand pain (Primary Dx); CMC arthritis from Last 3 Months Surgical History Surgery Date Site/Laterality Comments CARPAL TUNNEL RELEASE Left w/ trapeziectomy and interpostional arthroplasty Social History Tobacco Use Types Packs/Day Years Used Date Smoking Tobacco: Never Assessed Comments Unknown Sex and Gender Information Value Date Recorded Sex Assigned at Not on file Legal Sex Female 10:12 AM EST Gender Identity Not on file Sexual Orientation Not on file Obstetrics History Last Filed Vital Signs Vital Sign Reading Time Taken Comments Blood Pressure - - Pulse - - Temperature - - Respiratory Rate - - Oxygen Saturation - - Inhaled Oxygen Concentration - - Weight 84.4 kg (186 lb) 02/12/2025 3:04 PM EDT Height 162.6 cm (5' 4 ) 02/12/2025 3:04 PM EDT Body Mass Index 31.93 02/12/2025 3:04 PM EDT Plan of Treatment Upcoming Encounters Date Type Department Care Team (Late st Contact Info) Description 04/02/2025 3:30 PM EST Office Visit Orthopedic Surgery [facility] [address] [phone] Beth Robbins MD [address] [phone] Scheduled Procedures Name Priority Associated Diagnoses Date/Ti me ARTHROPLASTY THUMB Arthritis of carpometacarpal (CMC) joint of right thumb Carpal tunnel syndrome of right wrist RELEASE CARPAL TUNNEL ENDOSCOPIC Arthritis of carpometacarpal (CMC) joint of right thumb Carpal tunnel syndrome of right wrist Health Maintenance Due Date Last Done Comments Breast Cancer Screening 1965 Colorectal Cancer Screening: Colonoscopy 1965 Diabetes: Annual Foot Exam 1974 Diabetes: Annual Retina Eye Exam 1974 Cervical Cancer Screening: P ap Smear 1985 Hepatitis B Vaccines (2 of 3 - 19+ 3-dose series) 07/23/2002 06/25/2002 Pneumococcal Vaccine: 50+ Years (2 of 2 - PCV) 08/20/2011 08/19/2010 RSV Immunization Adult Patients (1 - [...] Sugar Contro l Test (HGBA1C) 06/20/2025 12/21/2024 Diabetes: Annual GFR (Glomerular Filtration Rate) 02/12/2026 02/12/2025 Cholesterol Screening (Lipid Panel) 02/12/2030 02/12/2025, 02/25/2022 HIB Vaccines Aged Out No longer [...] on patient's age to complete this topic Goals Goal Patient Goal Type Associated Problems Recent Progress Patient-Stated? Author Autogenerat ed Goal Care Plan Autogenerated Problem No Beth Robbins MD Procedures Procedure Name Priority Date/Time Associated Diagnosis [...] sclerosis Impression: Osteoarthritis right thumb basal joint. us Allyson FERREIRA IMG XR PROCEDURES Final Resul t from Last 3 Months Additional Health Concerns Active Problems Noted Date Diagnosed Date Autogenerated Problem 02/12/2025 Insurance * Guarantor: Gloria Alvarez Account Type Relation to Patient Date of Phone Billing Address Personal/Family Self [address] [place] [address] [facility] [employer] MEDICAID JHON CARMICHAEL [id number] Care Teams Student Ambassador Relationship Specialty Start Date End Date Juliet Adhikari MD [address] [place] [address] PCP - General Internal Medicine 02/12/25
--- OUTSIDE RECORDS SUMMARY | 2025-03-07 21:00 | XMS_ITS | Encounter Summary ---
Author Organization [employer] Address [address] [place] [address] [place] [address] Care Team Providers Care Extension Service Advisor Name Role Phone Juliet Adhikari MD Primary Care Provider [phone]- [phone] Encounter Details Date Type Department Care Team ([facility] st Contact Info) Description 03/15/2023 Orders Only [facility] CHC MED & PEDS [address] [place], [place] [phone] Juliet Adhikari MD 505 [place], [place] [phone] Acute vaginitis (Primary Dx) Social History Tobacco [...] documented as of this encounter Care Teams Extension Service Advisor Relationship Specialty Start Date End Date Juliet Adhikari MD [address] [place], [place] [address] [address] PCP - General Internal Medicine 02/15/12 documented as of this encounter
--- OUTSIDE RECORDS SUMMARY | 2025-03-07 21:00 | XMS_ITS | Encounter Summary ---
Author Organization [employer] Address [address] [place] [address] Care Team Providers Care Licensed Nuclear Operator Name Role Phone Juliet Adhikari MD Primary Care Provider [phone] Reason for Referral * Consultation (Routine) - Closed Specialty Diagnoses / Procedures Referred By Hannah rey Referred To Contact Occupational Therapy Diagnoses Lumbar radiculopathy Chronic left-sided low back pain with left-sided sciatica Juliet Adhikari MD [address] [place] [address] Phone: tel: fax: [facility] [address] [place] [address] Phone: tel: fax: Referral ID Status Reason Start Date Expiration Date V isits Requested Visits Authorized [id number] Closed Specialty Services Required 07/18/2024 07/18/2025 1 1 * Consultation (Routine) - Closed Specialty Diagnoses / Procedures Referred By Hannah rey Referred To Contact Physical Therapy Diagnoses Lumbar radiculopathy Chronic left-sided low back pain with left-sided sciatica Juliet Adhikari MD [address] [place] [address] Phone: tel: fax: [facility] [address] [place] [address] Phone: tel: fax: Referral ID Status Reason Start Date Expiration Date V isits Requested Visits Authorized [id number] Closed Specialty Services Required 07/18/2024 07/18/2025 1 1 Encounter Details Date Type Department Care Team ([facility] st Contact Info) Description 07/18/2024 Orders Only [facility] CHC MED & PEDS [address] [place] [address] Juliet Adhikari MD [address] [place] [address] Lumbar radiculopathy (Primary Dx); Chronic left-sided low [...] your housing situation today? I have april xuan 10/26/[address] you li [...] documented as of this encounter Care Teams Licensed Nuclear Operator Relationship Specialty Start Date End Date Juliet Adhikari MD [address] [place] [address] PCP - General Internal Medicine 02/15/12 documented as of this encounter
--- OUTSIDE RECORDS SUMMARY | 2025-03-07 21:00 | XMS_ITS | Encounter Summary ---
Author Organization [employer] Address [address] [place] [address] Care Team Providers Care Passenger Screener Name Role Phone Juliet Adhikari MD Primary Care Provider [phone] Reason for Visit * Reason Comments Med Refill Encounter Details Date Type Department Care Team ([facility] st Contact Info) Description 05/05/2023 Refill [facility] MED & PEDS [address] [place], [place] [phone] Juliet Adhikari MD 505 [place], [place] [phone] Type 2 diabetes mellitus with hyperglycemia (CMS/HCC) [...] Diagnosis Type 2 diabetes mellitus with hyperglycemia (HCC) documented in this encounter Additional Health Concerns Assessment Noted Time PHQ-9 Depression Total Score: 12 023 9:26 AM EDT documented as of this encounter Care Teams Passenger Screener Relationship Specialty Start Date End Date Juliet Adhikari MD [address] [place] [address] PCP - General Internal Medicine 02/15/12 documented as of this encounter
--- OUTSIDE RECORDS SUMMARY | 2025-03-07 21:00 | XMS_ITS | Encounter Summary ---
Author Organization [employer] Address 75 [facility] 7 [place] [address] Care Team Providers Care Church History Professor Name Role Phone Juliet Adhikari MD Primary Care Provider [phone] Reason for Visit * Reason Onset Date Comments Referral 11/01/2023 Encounter Details Date Type Department Care Team ([facility] st Contact Info) Description 11/01/2023 Telephone [facility] MEDICINE [address] [place] [address] Juliet Adhikari MD 505 [place], [place] [phone] Referral Social History Tobacco Use Types Packs/Day [...] 11/02/2023 10:42 AM Pily Martinez MA * How difficult have these problems made it for you to do your work, take care of things at home, or get along with other people? Answer Date of Assessment Author Somewhat difficult 11/02/2023 10:42 AM Pily Ewing [place] * Over the past 2 weeks, [...] than half the days 11/02/2023 10:42 AM SHIRAT Pily Hernandez MA Trouble concentrating on things, such as [...] documented as of this encounter Care Teams Church History Professor Relationship Specialty Start Date End Date Juliet Adhikari MD [address] [place] [phone] PCP - General Internal Medicine 02/15/12 documented as of this encounter
--- OUTSIDE RECORDS SUMMARY | 2025-03-07 21:00 | XMS_ITS | Encounter Summary ---
Author Organization [employer] Address [address] [place] [address] 7 [place] [address] Care Team Providers Care Person Investigator Name Role Phone Juliet Adhikari MD Primary Care Provider [phone]- [phone] Encounter Details Date Type Department Care Team ([facility] Contact Info) Description 11/22/2022 Orders Only [facility] CHC MED & PEDS 505 [place], [place] [phone] Juliet Adhikari MD 505 [place], [place] [phone] Positive PPD (Primary Dx) Social History Tobacco [...] documented as of this encounter Care Teams Person Investigator Relationship Specialty Start Date End Date Juliet Adhikari MD [address] [place] [address] PCP - General Internal Medicine 02/15/12 documented as of this encounter
--- OUTSIDE RECORDS SUMMARY | 2025-03-07 21:00 | XMS_ITS | Encounter Summary ---
Author Organization [employer] Address 75 [facility] 7t [place] [address] Care Team Providers Care Claims Agent Right Of Way Name Role Phone Juliet Adhikari MD Primary Care Provider [phone]- [phone] Encounter Details Date Type Department Care Team ([facility] st Contact Info) Description 11/02/2022 Telephone [facility] CHC ADULT DENTAL [address] [place] [address] Jovan Soler, DMD [address] [place] [address] Social History Tobacco Use Types Packs/Day Years [...] documented as of this encounter Care Teams Claims Agent Right Of Way Relationship Specialty Start Date End Date Juliet Adhikari MD [address] [place] [address] PCP - General Internal Medicine 02/15/12 documented as of this encounter
--- OUTSIDE RECORDS SUMMARY | 2025-03-07 21:00 | XMS_ITS | Encounter Summary ---
Author Organization [employer] Address 75 [facility] 7 [place] [address] Care Team Providers Care Filter Plant Operator Name Role Phone Juliet Adhikari MD Primary Care Provider [phone] Encounter Details Date Type Department Care Team ([facility] st Contact Info) Description 12/23/2023 Orders Only [facility] CHC MED & PEDS 505 [place], [place] [phone] Juliet Adhikari MD 505 [place], [place] [phone] Lumbar radiculopathy (Primary Dx) Social History Tobacco [...] documented as of this encounter Care Teams Filter Plant Operator Relationship Specialty Start Date End Date Juliet Adhikari MD [address] [place] [address] PCP - General Internal Medicine 02/15/12 documented as of this encounter
--- OUTSIDE RECORDS SUMMARY | 2025-03-07 21:00 | XMS_ITS | Encounter Summary ---
Author Organization [employer] Address [address] [place] [address] 7 [place] [address] Care Team Providers Care Dance Professor Name Role Phone Juliet Adhikari MD Primary Care Provider [phone] Reason for Visit * Reason Onset Date Comments Nurse Triage 12/22/2023 Encounter Details Date Type Department Care Team ([facility] st Contact Info) Description 12/22/2023 Telephone [facility] CHC MED & PEDS 505 [place], [place] [phone] Juliet Adhikari MD 505 [place] [address] Nurse Triage Social History Tobacco Use Types [...] Has appt. At end of month with [facility] but pt. States she [...] her through the month until she see's [facility]. Please advise and have [...] documented as of this encounter Care Teams Dance Professor Relationship Specialty Start Date End Date Juliet Adhikari MD [address] [place] [address] PCP - General Internal Medicine 02/15/12 documented as of this encounter
--- OUTSIDE RECORDS SUMMARY | 2025-03-07 21:00 | XMS_ITS | Encounter Summary ---
Author Organization [employer] Address [address] [facility] 7t [place] [address] Care Team Providers Care Suit Attendant Name Role Phone Juliet Adhikari MD Primary Care Provider [phone] Encounter Details Date Type Department Care Team (Late st Contact Info) Description 03/07/2025 Orders Only GENERIC EXTERNAL DATA DEPARTMENT Provider, Generic External Data Social History Tobacco Use Types Packs/Day Years Used Date Smoking Tobacco: Every Day Cigarettes Smokeless Tobacco: Never Alcohol Use Standard Drinks/Week Comments Not Currently 0 (1 standard drink = 0.6 oz pur e alcohol) Depression Answer Date Recorded Patient Health Questionnaire-9 Score 01/02/2025 Patient Health Questionnaire-9 Score 01/02/2025 Last PHQ-9: Questionnaire Data Not on [...] on file documented as of this encounter Goals Goal Patient Goal Type Associated Problems Recent Progress Patient-Stated? Author Help patients manage their type 2 diabetes Care Plan Help patients manage their type 2 diabetes No Mei Handy RN Weekly blood pressure task Care Plan Weekly blood pressure task No Mei Handy RN Help patients manage their type 2 diabetes Care Plan Help patients manage their type 2 diabetes No Mei Handy RN Patient has chronic kidney disease Care Plan Patient has chronic kidney disease No Mei Handy RN Help patients manage their type 2 diabetes Care Plan Help patients manage their type 2 diabetes No Mei Handy RN Patient has diabetic neuropathy Care Plan Patient has diabetic neuropathy No Mei Handy RN Weekly blood pressure task Care Plan Weekly blood pressure task No Mei Handy RN Weekly blood pressure task Care Plan Weekly blood pressure task No Mei Handy RN Patient has chronic kidney disease Care Plan Patient has chronic kidney disease No Mei Handy RN Patient has chronic kidney disease Care Plan Patient has chronic kidney disease No Mei Handy RN Patient has diabetic neuropathy Care Plan Patient has diabetic neuropathy No Mei Handy RN Patient has diabetic neuropathy Care Plan Patient has diabetic neuropathy No Mei Handy RN documented as of this encounter Procedures Procedure Name Priority Date/Time Associated Diagnosis Comments GLUCOSE, WHOLE BLOOD Routine 03/07/2025 8:03 PM EST GLUCOSE, WHOLE BLOOD Routine 03/07/2025 6:56 PM EST documented in this encounter Results * (ABNORMAL) Glucose, Whole Blood (03/07/2025 8:03 PM EST) Glucose, Whole Blood 210(H) 60 - 115 mg/dL [facility] Comment:METER #: [id number] 8 03/07/2025 8:03 PM EST 03/07/2025 8:09 PM EST us Generic External Data Provider LAB BLOOD ORDERAB LES Final Result [facility] [address] [place] [phone] [phone] * (ABNORMAL) Glucose, Whole Blood (03/07/2025 6:56 PM EST) Glucose, Whole Blood 301(H) 60 - 115 mg/dL [facility] Comment:METER #: [id number] 8 03/07/2025 6:56 PM EST 03/07/2025 8:09 PM EST us Generic External Data Provider LAB BLOOD ORDERAB LES Final Result Performing Organization Address City/[facility] Health/ZIP Co de Phone Number [facility] [address] [place] [phone] documented in this encounter Visit Diagnoses Not on filedocumented in this encounter Additional Health Concerns Active Problems Noted Date Diagnosed Date Help patients manage their type 2 diabetes 02/27 Weekly blood pressure task 02/27/2025 Help patients manage their type 2 diabetes 02/27 Patient has chronic kidney disease 02/27/2025 Help patients manage their type 2 diabetes 02/27 Patient has diabetic neuropathy 02/27/2025 Weekly blood pressure task 02/27/2025 Weekly blood pressure task 02/27/2025 Patient has chronic kidney disease 02/27/2025 Patient has chronic kidney disease 02/27/2025 Patient has diabetic neuropathy 02/27/2025 Patient has diabetic neuropathy 02/27/2025 Assessment Noted Time PHQ-9 Depression Total Score: 20 01/02/ 025 5:21 PM EDT documented as of this encounter Care Teams Suit Attendant Relationship Specialty Start Date End Date Juliet Adhikari MD [address] [place] [phone] PCP - General Internal Medicine 02/15/12 documented as of this encounter
--- OUTSIDE RECORDS SUMMARY | 2025-03-07 21:00 | XMS_ITS | Encounter Summary ---
Author Organization [employer] Address 75 [facility] 7 [place] [address] Care Team Providers Care Metal Sheet Roller Operator Name Role Phone Juliet Adhikari MD Primary Care Provider [phone]- [phone] Reason for Visit * Reason Onset Date Comments Referral 07/29/2023 Encounter Details Date Type Department Care Team ([facility] st Contact Info) Description 07/29/2023 Telephone [facility] [address] [place] [address] Juliet Adhikari MD 505 [place], [place] [phone] Referral Social History Tobacco Use Types Packs/Day [...] Miscellaneous Notes * Telephone Encounter - Delma Alvarez - 07/29/2023 9:45 AM EDT Tc from Jennifer HERNANDEZ requesting a referral for colonoscopy, stated pt told her wanted a check up due to colon cancer in the family. Any questions contact Jennifer [phone] documented in this encounter Plan of Treatment Not on file documented as of this encounter Visit Diagnoses Not on filedocumented in this encounter Additional Health Concerns Assessment Noted Time PHQ-9 Depression Total Score: 12 023 9:26 AM EDT documented as of this encounter Care Teams Metal Sheet Roller Operator Relationship Specialty Start Date End Date Juliet Adhikari MD [address] [place] [phone] PCP - General Internal Medicine 02/15/12 documented as of this encounter
--- OUTSIDE RECORDS SUMMARY | 2025-03-07 21:00 | XMS_ITS | Encounter Summary ---
Author Organization [employer] Address [address] [place] [address] Care Team Providers Care Physician Underwriter Name Role Phone Juliet Adhikari MD Primary Care Provider [phone]- [phone] Reason for Visit * Reason Onset Date Comments FYI 03/16/2023 Encounter Details Date Type Department Care Team ([facility] Contact Info) Description 03/16/2023 Telephone [facility] CHC MED & PEDS 505 [place], [place] [phone] Juliet Adhikari MD 505 [place] [address] FYI Social History Tobacco Use Types Packs/Day [...] documented as of this encounter Care Teams Physician Underwriter Relationship Specialty Start Date End Date Juliet Adhikari MD [address] [place] [phone] PCP - General Internal Medicine 02/15/12 documented as of this encounter
--- OUTSIDE RECORDS SUMMARY | 2025-03-07 21:00 | XMS_ITS | Encounter Summary ---
Author Organization [employer] Address [address] [place] [address] Care Team Providers Care Poultry Raiser Name Role Phone Juliet Adhikari MD Primary Care Provider [phone]- [phone] Reason for Visit * Reason Onset Date Comments Nurse Triage 06/02/2023 Encounter Details Date Type Department Care Team ([facility] st Contact Info) Description 06/02/2023 Telephone [facility] CHC MED & PEDS 505 [place], [place] [phone] Juliet Adhikari MD 505 [place], [place] [phone] Nurse Triage Social History Tobacco Use Types [...] Appt. Made for 06/03/23 at 120pm in [facility] but will send this note to team nurses and PCP to make sure that CT scan result is enough to say that pt. Does not have TB even though blood test abnormal from 03/07/2022 lab draw for TB. Protocol Used: Sinus Pain or Congestion (Adult) Protocol-Based Disposition: Go to Office or Video Visit Now- Alexetr declines appt. For today. Appt made for 06/03/23 at 120pm in [facility]. Video visit not offered Positive Triage Questions: * Severe sinus pain * Severe headache * Nasal discharge present > 10 days *thick green nasal discharge with blood mixed in. * Lots of coughing * All higher-acuity triage questions were negative Care Advice Discussed: * Reassurance and Education - Colds and Sinus Congestion * Nasal Washes for a Stuffy Nose * Nasal Washes - Yvyh-Fi-Ezok Instructions * Hydration * Telephone Encounter - Carmelita Wayne - 06/02/2023 1:14 PM EST Symptom: Sinus Symptoms Outcome: Schedule an urgent appointment (within 1 hour) or talk to a nurse or provider soon Reason: Severe headache The caller accepted this outcome Please contact pt at [phone] documented in this encounter Plan of Treatment Not on file documented as of this encounter Visit Diagnoses Not on filedocumented in this encounter Additional Health Concerns Assessment Noted Time PHQ-9 Depression Total Score: 12 023 9:26 AM EDT documented as of this encounter Care Teams Poultry Raiser Relationship Specialty Start Date End Date Juliet Adhikari MD [address] [place] [address] PCP - General Internal Medicine 02/15/12 documented as of this encounter
--- OUTSIDE RECORDS SUMMARY | 2025-03-07 21:00 | XMS_ITS | Encounter Summary ---
Author Organization [employer] Address 75 [facility] 7 [place] [address] Care Team Providers Care Skills Auditor Name Role Phone Juliet Adhikari MD Primary Care Provider [phone] Reason for Visit * Reason Onset Date Comments ER Follow-up 11/16/2023 Encounter Details Date Type Department Care Team ([facility] st Contact Info) Description 11/16/2023 Telephone [facility] MEDICINE [address] [place] [address] Juliet Adihkari MD 505 [place] [address] ER Follow-up Social History Tobacco Use Types [...] 11/16/2023 11:37 AM EDT Triage call with [facility] Phlebotomist [place] [id number] Pt was seen in [facility] ED 11/12/23 (report is on the chart). [...] become worse * Telephone Encounter - David Reno - 11/16/2023 11:00 AM EDT Patient calling [...] documented as of this encounter Care Teams Skills Auditor Relationship Specialty Start Date End Date Juliet Adhikari MD [address] [place] [phone] PCP - General Internal Medicine 02/15/12 documented as of this encounter
--- OUTSIDE RECORDS SUMMARY | 2025-03-07 21:00 | XMS_ITS | Encounter Summary ---
Author Organization [employer] Address [address] [facility] 7 [place] [address] Care Team Providers Care Top Spotter Name Role Phone Juliet Adhikari MD Primary Care Provider [phone] Encounter Details Date Type Department Care Team ([facility] st Contact Info) Description 09/03/2024 Orders Only [facility] CHC MED & PEDS [address] [place], [place] [phone] Juliet Adhikari MD [address] [place], [place] [phone] Cyst, vulva (Primary Dx) Social History Tobacco [...] documented as of this encounter Care Teams Top Spotter Relationship Specialty Start Date End Date Juliet Adhikari MD [address] [place] [address] PCP - General Internal Medicine 02/15/12 documented as of this encounter
--- OUTSIDE RECORDS SUMMARY | 2025-03-07 21:00 | XMS_ITS | Encounter Summary ---
Author Organization [employer] Address [address] [place] [address] [place] [address] Care Team Providers Care Computational Physicist Name Role Phone Juliet Adhikari MD Primary Care Provider [phone] Reason for Visit * Reason Onset Date Comments Results 02/12/2025 Encounter Details Date Type Department Care Team (Latest Contact Info) Description 02/12/2025 Results Follow-Up [facility] CHC MED & PEDS [address] [place], [place] [phone] Juliet Adhikari MD [address] [place] [address] POCT Glucose, POCT Hgb A1c, Comprehensive Metabolic Panel, Additional followed-up results: 2 Social History Tobacco Use Types Packs/Day Years [...] encounter Miscellaneous Notes * Telephone Encounter - Philomena Cali RN - 02/13/2025 10:18 AM EDT TC to pt and reviewed results and additional testing and referrals ordered. Pt states [facility] [address] [facility]. Pt stated also has new cell phone number [phone] and requested to have phone number added to chart. Advised [facility]CP of [facility] location to send statin and will updatecontacts. Pt verbalized understanding and agreement with plan. * Result Encounter Note - Juliet Adhikari MD - 02/12/2025 10:20 PM EDT Ms Jannet Alvarez will also be referred to nephrology to resume her care given her decreased GFR andHypercalcemia. * Result Encounter Note - Juliet Adhikari MD - 02/12/2025 10:12 PM EDT Please call to report the results of the blood work: 1) Very high cholesterol level. Ms Jannet Alvarez needs to be on a high intensity statin. I am goingto order Crestor 40 mg once a day and repeat Her lipid panel in 6 weeks. 2)Abnormal kidney function w/ Macroalbuminuria ( Stable GFR), Normal sodium, normal Potassium, Elevated calcium level ( could be due to dehydration especially if the diabetes is uncontrolled). Ms Jannet Alvarez needs to remain well hydrated and to continue w/ her efforts to get the diabetes controlled. She needs a repeat US of the kidneys. I will also order PTH to r/o hyperparathyroidism. 3)Elevated Alk Phosphatase. I will order and US of the abdomen to assess if having cholestasis. documented in this encounter Plan of Treatment Not on file documented as of this encounter Visit Diagnoses Not on filedocumented in this encounter Additional Health Concerns Assessment Noted Time PHQ-9 Depression Total Score: 20 025 5:21 PM EDT documented as of this encounter Care Teams Computational Physicist Relationship Specialty Start Date End Date Juliet Adhikari MD [address] [place] [address] PCP - General Internal Medicine 02/15/12 documented as of this encounter
--- OUTSIDE RECORDS SUMMARY | 2025-03-07 21:00 | XMS_ITS | Encounter Summary ---
Author Organization [employer] Address [address] [facility] [address] [address] Care Team Providers Care Battery Assembler Plastic Name Role Phone Juliet Adhikari MD Primary Care Provider [phone] Reason for Referral * Consultation (Routine) - Closed Specialty Diagnoses / Procedures Referred By Hannah rey Referred To Contact Pain Medicine Diagnoses Chronic left-sided low back pain with left-sided sciatica Lumbar radiculopathy Spinal stenosis of lumbar region without neurogenic claudication Juliet Adhikari MD [address] [place] [address] Phone: tel: fax: Daniel Cash MD [address] [place] [address] [address] [place] [address] Phone: tel: fax: Referral ID Status Reason Start Date Expiration Date V isits Requested Visits Authorized [id number] Closed Specialty Services Required 05/04/2024 05/04/2025 1 1 Encounter Details Date Type Department Care Team (Late st Contact Info) Description 05/04/2024 Orders Only [facility] CHC MED & PEDS [address] [place] [address] Juliet Ahdikari MD 505 [place] [address] Chronic left-sided low back pain with left-sided [...] documented as of this encounter Care Teams Battery Assembler Plastic Relationship Specialty Start Date End Date Juliet Adhikari MD [address] [place] [address] PCP - General Internal Medicine 02/15/12 documented as of this encounter
--- OUTSIDE RECORDS SUMMARY | 2025-03-07 21:00 | XMS_ITS | Encounter Summary ---
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
--- OUTSIDE RECORDS SUMMARY | 2025-03-07 21:00 | XMS_ITS | Clinical Summary ---
Author Organization [facility] Address [address] [facility] [address] [place], [place] [phone] Phone Care Team Providers Care Electricity Trading Analyst Name Role Phone Pcp, Unknown Primary Care [...] 6 season) 2024 SCREENING FOR DIABETES 01/08/2027 , 11/02/2023 LIPID PANEL 02/25/2027 02/25/2022 RSV VACCINE (1 - 1-dose 75+ series) 09/29/2039 HEPATITIS A VACCINES Aged Out No long er eligible based on patient's age to complete this topic HIB VACCINES Aged Out No longer eligi ble based on patient's age to complete this topic IPV VACCINES Aged Out No longer eligi ble based on patient's age to complete this topic MENINGOCOCCAL VACCINES (ACWY) Aged Out No longer eligible based on patient's age to complete this topic MENINGOCOCCAL VACCINES (B) Aged Out N o longer eligible based on patient's age to complete this topic Medical Devices Not on file Insurance [employer] MEDICARE REPLACEMENT [place] [facility] Care Teams Electricity Trading Analyst Relationship Specialty Start Date End Date Pcp, Unknown PCP - General 01/29/24 Additional Source Comments The information contained in this document represents components of the legal health record. It is not the complete legal health record.[facility]
--- OUTSIDE RECORDS SUMMARY | 2025-03-07 21:00 | XMS_ITS | Encounter Summary ---
Author Organization [employer] Address [address] [place] [address] 7 [place] [address] Care Team Providers Care Parts Administrator Name Role Phone Juliet Adhikari MD Primary Care Provider [phone] Reason for Visit * Reason Onset Date Comments referral 11/02/2022 Encounter Details Date Type Department Care Team (Late st Contact Info) Description 11/02/2022 Telephone [facility] ADULT DENTAL [address] [place] [address] Elidia Arce DDS [address] [place] [address] referral Social History Tobacco Use Types Packs/Day [...] be sent in to Maxillofacial surgery in [place] because they got her in as an emergency appt for tomorrow 11/03 at 8:20am. Dr. Soler is currently no in office. Reached out to Dr. Nguyen and she agreed to send it in for patient. Patient has been informed that referral will be sent in. documented in this encounter Plan of Treatment Not on file documented as of this encounter Visit Diagnoses Not on filedocumented in this encounter Additional Health Concerns Assessment Noted Time PHQ-9 Depression Total Score: 12 023 9:26 AM EDT documented as of this encounter Care Teams Parts Administrator Relationship Specialty Start Date End Date Juliet Adhikari MD [address] [place] [address] PCP - General Internal Medicine 02/15/12 documented as of this encounter
--- OUTSIDE RECORDS SUMMARY | 2025-03-07 21:00 | XMS_ITS | Encounter Summary ---
Author Organization [employer] Address [address] [facility] 7 [place] [address] Care Team Providers Care Clerk Checker Name Role Phone Juliet Adhikari MD Primary Care Provider [phone] Encounter Details Date Type Department Care Team (Late st Contact Info) Description 08/02/2023 Orders Only [facility] [address] [place] [address] Provider, MD Julee Social History Tobacco Use [...] PM EDT Narrative 09/01/2023 3:51 PM EDT [address] [address] XRay Report Signed Patient: Jannet Alvarez MR#: [id number] : 1965 Acct:[id number] Age/Sex: 57 / F ADM Date: 09/01/23 Loc: HO.ED Attending Dr: Ordering Physician: Alexei Iniguez MD Date of Service: 09/01/23 Procedure(s): XR chest 1V Accession Number(s): [id number] cc: Juliet Adhikari MD; Alexei Iniguez MD [...] in OV> 09/01/23 1547 DD/ 1420 TD/TT: Solar Thermal Technician: SS Procedure Note Donotuseinterpreter, Image - 09/01/[address] [address] XRay Report Signed Patient: Jannet AlvarezMR#: [id number] : 1965Acct:[id number] Age/Sex: 57 / FADM Date: 09/01/23 Loc: HO.ED Attending Dr: Ordering Physician: Alexei Iniguez MD Date of Service: 09/01/23 Procedure(s): XR chest 1V Accession Number(s): [id number] cc: Juliet Adhikari MD; Alexei Iniguez MD [...] in OV> 09/01/23 1547 DD/ 1420 TD/TT: Solar Thermal Technician: BERYL [facility] External Provider IMG XR PROCEDURES Final Result * Colonoscopy (02/24/2023 3:37 PM EST) Anatomical Region Laterality Modality Endoscopy Historical Provider ENDOSCOPY PROCEDURE ORDER MAINE Final Result documented in this encounter Visit Diagnoses Not on filedocumented in this encounter Additional Health Concerns Assessment Noted Time PHQ-9 Depression Total Score: 12 023 9:26 AM EDT documented as of this encounter Care Teams Clerk Checker Relationship Specialty Start Date End Date Juliet Adhikari MD [address] [place] [address] PCP - General Internal Medicine 02/15/12 documented as of this encounter
--- OUTSIDE RECORDS SUMMARY | 2025-03-07 21:00 | XMS_ITS | Encounter Summary ---
Author Organization [employer] Address [address] [place] [address] Care Team Providers Care Ritual Circumciser Name Role Phone Juliet Adhikari MD Primary Care Provider [phone] Reason for Visit * Reason Comments Med Refill Encounter Details Date Type Department Care Team ([facility] Contact Info) Description 01/08/2023 Refill [facility] CHC MED & PEDS [address] [place], [place] [phone] Juliet Adhikari MD [address] [place], [place] [phone] Social History Tobacco Use Types Packs/Day Years [...] documented as of this encounter Care Teams Ritual Circumciser Relationship Specialty Start Date End Date Juliet Adhikari MD [address] [place] [address] PCP - General Internal Medicine 02/15/12 documented as of this encounter
--- OUTSIDE RECORDS SUMMARY | 2025-03-07 21:00 | XMS_ITS | Encounter Summary ---
Author Organization [employer] Address [address] [place] [address] Care Team Providers Care Infection Control Coordinator Name Role Phone Juliet Adhikari MD Primary Care Provider [phone] Reason for Visit * Reason Onset Date Comments Nurse Triage 08/29/2023 Encounter Details Date Type Department Care Team ([facility] st Contact Info) Description 08/29/2023 Telephone [facility] CHC MED & PEDS [address] [place], [place] [phone] Juliet Adhikari MD [address] [place], [place] [phone] Nurse Triage Social History Tobacco Use Types [...] insulin. Pt. Did have to go to [place] for a month at the last minute dueto a in the family Her father. Now pt. Got in from [place] last night and wants to get her [...] documented as of this encounter Care Teams Infection Control Coordinator Relationship Specialty Start Date End Date Juliet Adhikari MD [address] [place] [address] PCP - General Internal Medicine 02/15/12 documented as of this encounter
--- OUTSIDE RECORDS SUMMARY | 2025-03-07 21:00 | XMS_ITS | Data Portability ---
Author Organization [place] [facility] Address [address] [place] [address] Care Team Providers Care Cyber Security Engineer Name Role Phone ABNER CAMPBELL Primary Care Provider Assessment Encounter Date Assessment Date Assessment LastModified by Organization Details LastModified Time 07/16/2019 07/16/2019 Overview/History :David billings is a 53-year-old female with a medical history significant for asthma, depression, diabetes, hypertension, anxiety, bipolar disorder and obstructive sleep apnea. She contacted [facility] when she noted that she had an ulceration in her left lower lip. She tells me that prior to this ulceration being there she had been picking at dry skin there. She feels she had purulent drainage coming from this yesterday but that is not occurring today. She has been using warm compresses and topical numbing medication. Exam: On exam patient is awake and alert and overall quite well appearing. Hemodynamically stable and afebrile. She is known to have some mild swelling of her left ovary. She does have a small ulceration that appears to be crusted over, this seems be consistent with canker sore. No areas of fluctuance or purulence noted. No other lesions in the mouth. DDx considered, but not limited to:Patient's ulceration seems most consistent with canker sore. Did consider traumatic injury such as biting lip though patient denies this. Shingles considered however no vesicles. Impetigo considered but no honey crusted drainage. Appearance not consistent with oral cancer. Work up/Results: Plan/Discussion:I discussed with patient that this score would likely resolve in the next week or so. She can continue with warm compresses as they are comfortable to her. I suggested that she try to keep her lips voice, she can apply a few drops of Milk of Magnesia to the sore a couple of times a day. I also suggested that she avoid spicy or salty food as this would irritate her lesion. Patient verbalized understanding of instructions. In order to obtain further information and compare any laboratory results/values, I have accessed patient records on the [employer]. This information was pertinent in my medical decision making today. Time On Scene with Patient: 00:24:58 [email or web address] Not available 07/16/2019 17:53:41 Plan of Treatment Reminders Order Date Submit Date Provider Last Modified By Organization Details Last Modified Time Details Appointments None record ed. Lab None record ed. Referral None record ed. Procedures None record ed. Surgeries None record ed. Imaging None record ed. Medication Orders None record ed. Patient TargetsNo targets recorded. Patient Instructions Encounter Date Encounter Id Patient Instructions Last Modified By Organization Details Last Modified Time 07/16/2019 [id number] cheikh king: car e instructions [email or web address] Not available 07/16/2019 17:53:42 Thank you for yo ur visit with [facility] today. You were seen today for treatment of a wound. Please seek immediate medical attention if you develop increased pain, redness, or swelling of your wound. Also, you should be evaluated if the wound becomes warm to the touch, or if there is a cloudy, yellow-brown discharge from the wound. There is always the possibility of a hidden tendon injury or foreign object in the wound. If you have problems moving your arm or leg, or if you see red streaks up the arm or leg, seek immediate medical attention. If you develop any new or worsening symptoms and need after hours care, please go to nearest ER and/or call 911. If you have additional concerns or develop a change in your condition between 8am-10pm, please call [facility] at [phone] to help navigate your care. [email or web address] Not available 07/16/2019 14:25:28 Reason for Referral None Reported. Procedures Surgical History Date Name Laterality Status Provider Name and Address Organization Details Recorded Time 07/16/19 20 Medication Review completed [facility]OSS, [place], [address], [place] [facility] 07/16/2019 14:25:19 Imaging Results None recorded. Procedure Notes None recorded. Medical Equipment None Reported. Allergies Allergen ID Allergen Name Allergen Category Reaction Reaction Severity Criticality Documentation Date Start Date Code Code System Note Provider Name and Address Organization Details Recorded Time Product containin g penicilli n (product) medicatio n Not available Not available Not available 07/16/2019 [id number] SNOMED JUSTIN BURGESS , [facility] [address], [place], [address], [place] [facility] 0 13:55:37 Medications Name Sig Start Date Stop Date Status Note LastModified by Organization Details LastModified Time clindamycin HCl 300 mg capsule 07/15 completed Not Available Not Available Not Available glyburide 5 mg tablet active Not Available Not Available Not Available hydrocodone 5 mg-acetaminophen 325 mg tablet active Not Available Not Availabl e Not Available amlodipine 5 mg tablet active Not Available Not Available Not Available omeprazole 40 mg capsule,delayed release active Not Available Not Available Not Available tramadol 50 mg tablet active Not Available Not Available Not Available amitriptyline 50 mg tablet active Not Available Not Available No t Available lidocaine-priloc kiara 2.5 %-2.5 % topical cream active Not Available Not Availabl e Not Available oxycodone-acetam inophen 5 mg-325 mg tablet 07/15 completed Not Available Not Available Not Available dicyclomine 20 mg tablet active Not Available Not Available No t Available cephalexin 500 mg capsule 07/15 completed Not Available Not Available Not Available gabapentin 300 mg capsule active Not Available Not Available N ot Available lorazepam 1 mg tablet 07/15 completed Not Available Not Available Not Available ibuprofen 600 mg tablet 07/15 completed Not Available Not Available Not Available ondansetron 4 mg disintegrating tablet active Not Available Not Available Not Available metoclopramide 10 mg tablet active Not Available Not Available Not Available oxycodone 5 mg tablet 07/15 completed Not Available Not Available Not Available Novolog FlexPen U-100 Insulin aspart 100 unit/mL (3 mL) subcutaneous active Not Available Not Available Not Available chlorhexidine gluconate 0.12 % mouthwash active Not Available Not Available No t Available aspirin active Not Available Not Avail able Not Available Effexor XR active Not Available Not Av ailable Not Available BD Ultra-Fine Short Pen Needle 31 gauge x 5/16 active Not Available Not Avail able Not Available Januvia 100 mg tablet active Not Available Not Available Not Available Lantus Solostar U-100 Insulin 100 unit/mL (3 mL) subcutaneous pen active Not Available Not Available Not Available diclofenac 1 % topical gel active Not Available Not Available Not Available Trulicity 0.75 mg/0.5 mL subcutaneous pen injector active Not Available Not Available Not Available Vitals Date Recorded Respiratory rate Heart rate Oxygen saturation Body temperature Systolic And Diastolic Provider Name and Address Organization Details Last Updated DateTime 0 18 /min 68 /min 98 % 96.5 [degF] 112/66 mm[Hg] Not Available [facility] 0 13:57:15 Social History Question Answer Notes LastModified by Organizat ion Details LastModified Time Tobacco Smoking Status Current Every Day Smoker JUSTIN BURGESS NP [address] [place], [address], [place] [facility] 07/16/2019 14:00:08 How Much Tobacco Do You Smoke? 0.5 PPD [email or web address] Information not available 07/16/2019 Sex: Unknown Functional Status None recorded. Mental Status None recorded. Family History Relationship Description Onset Age of this Age Resolved Age Notes LastModified by Organization Details LastModified Time Father Diabetes mellitus [email or web address] Not available 14:00:24 Medical History Condition Response Coronary Artery Disease N COPD N Depression Y Cancer N Stroke N High Cholesterol N Kidney Disease N Diabetes Y Asthma Y Pulmonary Embolism N Hypertension Y Gynecological HistoryNo gynecological history recorded. Obstetrics History GPAL:G 0 P 0 0 0 0 Past Encounters Encounter ID Performer Location Encounter Start Date Encounter Closed Date Diagnosis/Indication Diagnosis SNOMED-CT Code Diagnosis ICD10 Code Diagnosis IMO Codes Diagnosis Note [id number] JUSTIN BURGESS NP [facility] [address] [place] [address] 07/16/2019 13:52:50 07/18/2019 12:42:21 Aphthous ulcer of mouth 723779536 K12.0 Health Concerns Section Related Observation LastModified by Organization Detai ls LastModified Time None Recorded Concern Status LastModified by Organization Details LastModified Time None Recorded Advance Directives Directive None Recorded Payers Insurance Date Sequence Insurance Name Policy Number Policy Ricci Covered Member ID Ricci Member ID Guarantor Name 07/18/2019 2 [place] B[place]: [employer] Jannet Alvarez [id number] Jannet Alvarez 07/15/2019 1 *SELF PAY* Jannet Alvarez [id number] Jannet Malino 07/18/2019 1 [place] [facility] Jannet Alvarez [id number] Jannet Malino 07/19/2019 1 [place] [facility] Jannet Alvarez [id number] Jannet Malino 07/18/2019 2 [place] [facility] Jannet Alvarez [id number] Jannet Alvarez Notes Date Note Type Note Provider Name and Address Organization Details Recorded Time 07/16/2019 text/html This is a 53-year-old female that is new [employer] N this provider. She has a medical history significant for asthma, depression, diabetes, hypertension, bipolar, anxiety and obstructive sleep apnea for which she has a CPAP but does not use it. She contacted [employer] with concerns of an ulceration on her left lower lip that she felt was filled with past. She tells me prior to this wound being there she had been picking at her lips and pulling on skin. She says that this area drained some drainage yesterday but does not drink anything today. She has tried some aept-toi-lnvfevq numbing medications which she felt made her lips dry. She is now applying Vaseline. JUSTIN BURGESS NP [address] [place], [place] [address], [place], [address], [place] [facility] 07/16/2019 17:53:48 OBGyn Episode No OBEpisode recorded.
--- OUTSIDE RECORDS SUMMARY | 2025-03-07 21:00 | XMS_ITS | Encounter Summary ---
Author Organization [employer] Address [address] [place] [address] [address] [place] [address] Care Team Providers Care Last Remodeler Repairer Name Role Phone Juliet Adhikari MD Primary Care Provider [phone] Reason for Referral * Consultation (Routine) - Authorized Specialty Diagnoses / Procedures Referred By Hannah rey Referred To Contact Nephrology Diagnoses Decreased GFR Hypercalcemia CKD stage 3a, GFR 45-59 ml/min ([facility]/HCC) ([facility]) Juliet Adhikari MD [address] [place] [address] Phone: tel: fax: [facility] [address], [address] [place] [address] Phone: tel: fax: Referral ID Status Reason Start Date Expiration Date Visits Requested Visits Authorized [id number] Authorized Specialty Services Required 02/12/2026 1 1 * Imaging (Routine) - Authorized Specialty Diagnoses / Procedures Referred By Hannah t Referred To Contact Radiology Diagnoses Elevated alkaline phosphatase level Decreased GFR Procedures US Abdomen Complete Juliet Adhikari MD [address] [place] [address] Phone: tel: fax: [address] Phone: tel: fax: Referral ID Status Reason Start Date Expiration Date V isits Requested Visits Authorized [id number] Authorized 02/12/2025 02/12/2026 1 1 Encounter Details Date Type Department Care Team ([facility] st Contact Info) Description 02/12/2025 Orders Only [facility] [address] [place] [address] Juleit Adhikari MD [address] [place] [address] Elevated alkaline phosphatase level (Primary Dx); Decreased GFR; Hypercalcemia; CKD stage 3a, GFR 45-59 ml/min (CMS/HCC) (HCC); Hypercholesterolemia Social History Tobacco Use Types Packs/Day Years [...] Type Priority Associated Diagnoses Orde r Schedule US Abdomen Complete Imaging Routine Elevated alkaline phosphatase level Decreased GFR Expected: 02/12/2025, Expires: 02/12/2026 PTH, Intact Without Calcium Lab Routine Decreased GFR Hypercalcemia CKD stage 3a, GFR 45-59 ml/min (CMS/HCC) ([facility]) Expected: 02/12/2025, Expires: 02/12/2026 Vitamin D, 25-Hydroxy, Total, Immunoassay Lab Routine Decreased GFR Hypercalcemia CKD stage 3a, GFR 45-59 ml/min (CMS/HCC) ([facility]) Expected: 02/12/2025 (Approximate), Expires: 02/12/2026 Scheduled Referrals Name Type Priority Associated Diagnoses Order Schedule Referral to Nephrology Outpatient Referral Routine Decreased GFR Hypercalcemia CKD stage 3a, GFR 45-59 ml/min (CMS/HCC) ([facility]) Expected: 02/12/2025 (Approximate), Expires: 02/12/2026 documented as of this encounter Visit Diagnoses Diagnosis Elevated alkaline phosphatase level- Primary Decreased GFR Hypercalcemia CKD stage 3a, GFR 45-59 ml/min (CMS/HCC) ([facility]) Hypercholesterolemia Pure hypercholesterolemia documented in this encounter Additional Health Concerns Assessment Noted Time PHQ-9 Depression Total Score: 20 025 5:21 PM EDT documented as of this encounter Care Teams Last Remodeler Repairer Relationship Specialty Start Date End Date Juliet Adhikari MD [address] [place] [id number] PCP - General Internal Medicine 02/15/12 documented as of this encounter
--- OUTSIDE RECORDS SUMMARY | 2025-03-07 21:00 | XMS_ITS | Encounter Summary ---
Author Organization [employer] Address [address] [facility] [address] [place] [address] Care Team Providers Care Wrapping Checker Name Role Phone Juliet Adhikari MD Primary Care Provider [phone] Encounter Details Date Type Department Care Team ([facility] st Contact Info) Description 02/04/2023 Abstract [facility] [address] [place] [address] Juliet Adhikari MD [address] [place] [address] Social History Tobacco Use Types Packs/Day Years [...] documented as of this encounter Care Teams Wrapping Checker Relationship Specialty Start Date End Date Jluiet Adhikari MD [address] [place] [id number] PCP - General Internal Medicine 02/15/12 documented as of this encounter
--- OUTSIDE RECORDS SUMMARY | 2025-03-07 21:01 | XMS_ITS | Encounter Summary ---
Author Organization [employer] Address [address] [place] [address] Care Team Providers Care Java Jsf Developer Name Role Phone Juliet Adhikari MD Primary Care Provider [phone] Reason for Visit * Reason Comments Med Change Request Encounter Details Date Type Department Care Team ([facility] Contact Info) Description 05/10/2022 Refill [facility] MED [facility] PEDS [address] [place], [place] [phone] Juliet Adhikari MD [address] [place], [place] [phone] Diabetic nephropathy associated with type 2 diabetes [...] nephropathy associated with type 2 diabetes mellitus (HCC) documented in this encounter Care Teams Java Jsf Developer Relationship Specialty Start Date End Date Juliet Adhikari MD [address] [place] [address] PCP - General Internal Medicine 02/15/12 documented as of this encounter
--- OUTSIDE RECORDS SUMMARY | 2025-03-07 21:01 | XMS_ITS | Clinical Summary ---
Author Organization [employer] Address [address] [place] [address] Care Team Providers Care Tapper Helper Name Role Phone Juliet Adhikari MD Primary Care Provider [phone] Allergies Active Allergy Reactions Criticality Noted Date Comments Penicillins Rash Low 03/22/2022 Medications * This document contains information received from the source organization and may not represent a complete record from that organization. albuterol 108 (90 Base) MCG/ACT inhaler inhale 1 - 2 puff by inhalation route every 6 hours as needed 021 Active cholecalciferol (Vitamin D-3) 25 MCG (1000 UT) tablet Take 1 Tablet by Oral route once daily 022 Active aspirin 81 MG EC tablet 1 tablet by mouth once a day 022 Active insulin pen needle (pen needle, diabetic) 31G X 8 mm misc BD Ultra-Fine Short Pen Needle 31 gauge x 5/16 Active FreeStyle lancets 1 each by Other route 3 times daily. Test blood sugar three times a day. 100 each 11 023 Active ARIPiprazole (Abilify) 20 MG tablet Take 1 tablet (20 mg) by mouth Once per day. 90 tablet 3 024 Active hydrOXYzine HCl (Atarax) 50 MG tablet Take 1 tablet (50 mg) by mouth if needed at bedtime (sleep). 90 tablet 2 024 Active tiZANidine (Zanaflex) 4 MG tablet Take 1 tablet by mouth 3 times daily. 024 Active nicotine polacrilex (Nicorette) 2 MG gum CHEW 1 PIECE OF GUM EVERY HOUR NEEDED FOR NICOTINE CRAVINGS 06/12/2 024 Active Diclofenac Sodium 1 % gel Apply 4 g topically 4 times daily. Active nystatin (Mycostatin) creamIndications :Acute vaginitis APPLY TO AFFECTED AREA TWICE A DAY 30 g Active lidocaine (Lidoderm) 5 % patchIndications :Lumbar radiculopathy APPLY 1 PATCH IN THE MORNING REMOVE AND DISARD PATCH WITHIN 12 HOURS OR DIRECTED 30 patch 2 024 Active insulin degludec (Tresiba FlexTouch) 200 UNIT/ML injectionIndicat ions:Type 2 diabetes mellitus with diabetic polyneuropathy, with long-term current use of insulin (HCC) INJECT 84 UNIT SUBCUTANEOUSLY AT BEDTIME 15 mL 11 Active nicotine (Nicoderm, Step 1) 21 MG/24HR patchIndications :Smoking PLACE 1 PATCH ON THE SKIN 1 TIME EACH DAY AT THE SAME TIME. ROTATE PATCH SITE 28 patch 025 Active ibuprofen 600 MG tablet TAKE 1 TABLET BY MOUTH 3 TIMES DAILY. 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 Do not crush or chew. 60 capsule 025 2025 Active Continuous Glucose Automatic Profile Sander Operator (FreeStyle Kelle 3 [place]) deviceIndication s:Type 2 diabetes mellitus with diabetic polyneuropathy, with long-term current use of insulin ([facility]) 1 each Once per day. Use as directed for CGM 1 each 025 Active Continuous Glucose Sensor (FreeStyle Kelle 3 Plus Sensor) miscIndications: Type 2 diabetes mellitus with diabetic polyneuropathy, with long-term current use of insulin (HCC) 1 each every 15 days. Apply 1 every 15 days as directed for CGM 2 each Active rosuvastatin (Crestor) 20 MG tablet TAKE 1 TABLET BY MOUTH EVERYDAY AT BEDTIME 90 tablet 1 025 Active NovoLOG FLEXPEN 100 UNIT/ML penIndications:T ype 2 diabetes mellitus with diabetic polyneuropathy, with long-term current use of insulin (HCC) INJECT 36-42 UNITS DEPENDING ON BLOOD GLUCOSE AND WHAT THEY ARE EATING 45 mL 3 Active gabapentin (Neurontin) 600 MG tabletIndication s:Diabetic polyneuropathy associated with type 2 diabetes mellitus (HCC) Take 1 tablet (600 mg) by mouth 3 times daily. 90 tablet 11 025 2025 Active Elastic Bandages & Supports (Wrist Brace/Right Medium) miscIndications: Carpal tunnel syndrome of right wrist To wear daily 1 each Active Continuous Glucose Automatic Profile Sander Operator (FreeStyle Kelle 3 [place]) deviceIndication s:Uncontrolled type 2 diabetes mellitus with hyperglycemia (HCC) 1 each Once per day. Use as directed for CGM 1 each Active Continuous Glucose Sensor (FreeStyle Kelle 3 Plus Sensor) miscIndications: Uncontrolled type 2 diabetes mellitus with hyperglycemia (HCC) 1 each every 15 days. Apply 1 every 15 days as directed for CGM 2 each Active rosuvastatin (Crestor) 40 MG tabletIndication s:Hypercholester olemia Take 1 tablet (40 mg) by mouth Once per day. 30 tablet 11 025 2025 Active rosuvastatin (Crestor) 40 MG tabletIndication s:Hypercholester olemia Take 1 tablet (40 mg) by mouth Once per day. 30 tablet 025 2024 Discontinued(R eorder (will not trigger notification to Pharmacy)) Active Problems Problem Noted Date Diagnosed Date [...] diabetes mellitus 12/21/2024 Non-ST elevation DE (NSTEMI) ([facility]) Spinal stenosis of lumbar re gion without [...] retiring, patient will be transferred to new [facility] psychiatric prescriber. Patient is aware that appointments will be via televisit, and that the provider will not be an employee of [facility]. She gives verbal permission to share [...] organization. Date Type Department Care Team Description 03/07/2025 Orders Only GENERIC EXTERNAL DATA DEPARTMENT Provider, Generic External Data 02/26/2025 Telephone [facility] MEDICINE [address] [place] [phone] Juliet Adhikari MD Appointment Request 02/12/2025 Results Follow-Up [facility] [address] [place] [address] Juliet Adhikari MD POCT Glucose, POCT Hgb A1c, Comprehensive Metabolic Panel, Additional followed-up results: 2 02/12/2025 Orders Only [facility] [address] [place] [address] Juliet Adhikari MD Elevated alkaline phosphatase level (Primary Dx); Decreased GFR; Hypercalcemia; CKD stage 3a, GFR 45-59 ml/min (CMS/HCC) (HCC); Hypercholesterolemia 02/12/2025 Orders Only GENERIC EXTERNAL DATA DEPARTMENT Provider, Generic External Data 01/16/2025 Telephone [facility] [address] [place] [address] Juliet Adhikari MD Appointment Request 01/09/2025 Orders Only [facility] External Provider, [facility] 01/04/2025 Orders Only GENERIC EXTERNAL DATA DEPARTMENT Provider, Generic External Data 12/21/2024 1:30 PM EDT Office Visit [facility] [address] [place] [address] Juliet Adhikari MD Paresthesias (Primary Dx); Diabetic polyneuropathy associated with type 2 diabetes mellitus (CMS/HCC); Carpal tunnel syndrome of right wrist; Uncontrolled type 2 diabetes mellitus with hyperglycemia (CMS/HCC); Mood disorder (CMS/HCC); Dietary counseling; Exercise counseling; Class 1 obesity due to excess calories with serious comorbidity and body mass index (BMI) of 32.0 to 32.9 in adult 12/21/2024 Refill [facility] [address] [place] [address] Juliet Adhikari MD Carpal tunnel syndrome of right wrist 12/21/2024 Travel 12/20/2024 Telephone [facility] [address] [place] [phone] Juliet Adhikari MD Nurse Triage from Last 3 Months Immunizations Immunization Administration [...] of 2 - PCV) 08/20/2011 08/19/2010 RSV Patients and Patients Aged 60 years or older (1 - Risk 50-74 years 1-dose series) 2014 Zoster Vaccines (1 of 2) 2014 DTaP/Tdap/Td Vaccines (2 - Td or Tdap) 02/16/2021 02/16/2011 Dental Oral Exam 10/25/2022 04/26/2022 Pap Smear 09/03/2023 09/02/2020 SDOH Screening 11/01/2024 11/02/2023 COVID-19 Vaccine (3 - 2024- season) 2024 03/31/2021, 01/10/2021 Influenza Vaccine (#1) 2024 03/31/2021 Diabetes: Hemoglobin A1C 03/22/2025 025, 09/04/2024, 11/02/2023, Additional history exists Dental X-Ray: Full Mouth 04/27/2025 04/26/2022 Depression Monitoring 07/02/2025 01/02/2025, 025 Cervical Cancer Screening 09/02/2025 HPV/Cotest 09/02/2025 09/02/2020 Tobacco Screening 12/21/2025 12/21/2024 Lipid Panel 02/12/2026 02/12/2025, 02/25/2022 Colonoscopy 02/25/2028 02/24/2023, 02/25/2016 Colorectal Cancer Screening [...] Plan Weekly blood pressure task No Mei Handy, JOVAN Help patients manage their type 2 diabetes Care Plan Help patients manage their type 2 diabetes No Mei Handy, JOVAN Patient has chronic kidney disease Care Plan Patient has chronic kidney disease No Mei Hadny, JOVAN Help patients manage their type 2 diabetes Care Plan Help patients manage their type 2 diabetes No Mei Handy, RN Patient has diabetic neuropathy Care Plan Patient has diabetic neuropathy No Mei Handy, JOVAN Weekly blood pressure task Care Plan Weekly blood pressure task No Mei Handy, JOVAN Weekly blood pressure task Care Plan Weekly [...] has diabetic neuropathy No Mei Handy RN Procedures Procedure Name Priority Date/Time Associated Diagnosis Comments GLUCOSE, WHOLE BLOOD Routine 03/07/2025 8:03 PM EST GLUCOSE, WHOLE BLOOD Routine 03/07/2025 6:56 PM EST ALBUMIN, RANDOM URINE W/CREATININE Routine 02/12/2025 10:35 AM EDT LIPID PANEL, STANDARD Routine 02/12/2025 10:30 AM EDT MAGNESIUM Routine 02/12/2025 10:30 AM EDT Paresthesias VITAMIN B6 Routine 02/12/2025 10:30 AM EDT Paresthesias Diabetic polyneuropathy associated with type 2 diabetes mellitus (HCC) VITAMIN B12/FOLATE, SERUM PANEL Routine 02/12/2025 10:30 AM EDT Paresthesias Diabetic polyneuropathy associated with type 2 diabetes mellitus (HCC) COMPREHENSIVE METABOLIC PANEL Routine 02/12/2025 10:30 AM EDT Paresthesias Diabetic polyneuropathy associated with type 2 diabetes mellitus (HCC) AMB REFERRAL TO HAND SURGERY Routine 02/12/2025 Carpal tunnel syndrome of right wrist URINALYSIS, COMPLETE, WITH REFLEX TO CULTURE Routine 01/09/2025 8:[address] ABDOMEN PELVIS W CONTRAST Routine 01/09/2025 7:45 AM EDT CULTURE, URINE, ROUTINE Routine 01/09/2025 12:00 AM EDT GLUCOSE, WHOLE BLOOD Routine 01/04/2025 2:17 PM [...] ESTABLISHED PATIENT Routine 04/26/2022 1:00 PM EST HPV MRNA E6/E7 Routine 09/02/2020 1:57 PM EDT THINPREP PAP Routine 09/02/2020 1:57 PM EDT from Last 3 Months or Most Recently Relevant to Health Maintenance Results * (ABNORMAL) Glucose, Whole Blood (03/07/2025 8:03 PM EST) Only the most recent of2 resultswithin the time period is included. Glucose, Whole Blood 210(H) 60 - 115 mg/dL [facility] Comment:METER #: [id number] 03/07/2025 8:03 PM EST 03/07/2025 8:09 PM EST us Generic External Data Provider LAB BLOOD ORDERAB LES Final Result [facility] [address] [place] [phone] * (ABNORMAL) Albumin, Random Urine W/Creatinine (02/12/2025 10:35 AM EDT) Creatinine, Urine 148.17 mg/dL [facility] Microalbumin Urine 788.0 mg/L [facility] Microalbum Creatinine Ratio Ur 531.8(H) <30 ug/mg cr [facility] Comment:Albumin/Creatinine R atio Reference Ranges: Normal: < 30 ug/mg creatinine Microalbuminuria: 30 - 300 ug/mg creatinineClinical Albuminuria: > 300 ug/mg creatinine 02/12/2025 10:3 5 AM EDT 02/12/2025 1:54 PM EDT us Generic External Data Provider LAB URINE ORDERAB LES Final Result Performing Organization Address City/[facility]/ZIP Co de Phone Number [facility] [address] [place] [phone] * Vitamin B12/Folate, Serum Panel (02/12/2025 10:30 AM EDT) Vitamin B12 673 200 - 900 pg/mL [facility] Comment:NORMAL 200-900 PG/M L INDETERMINATE 160-199 PG/ML DEFICIENT < 160 PG/ML Folate 5.4 > or = 4.0 ng/mL [facility] Comment:Reference Values:> o r = 4.0 ng/mL< 4.0 ng/mL suggests folate deficiency Methotrexate, aminopterin and folinic acid(leucovorin) are chemotherapeutic agents whose molecularstructures are similar to folate; therefore, the Architectfolate assay cannot be used for patients using these drugs. Blood Venous blood specimen / Unknown 02/12/2025 10:30 AM EDT 02/12/2025 2:09 PM EDT us Juliet Adhikari MD LAB BLOOD ORDERABLES Final Result Performing Organization Address [facility]/ZIP Co de Phone Number [facility] [address] [place] [phone] * Vitamin B6 (02/12/2025 10:30 AM EDT) Vitamin B6 2.5 2.1 - 21.7 ng/mL [facility] Comment:Vitamin supplementat ion within 24 hours prior toblood draw may affect the accuracy of the results.This test was developed and its analytical performancecharacteristics have been determined by [employer] [place], [place]. It hasnot been cleared or approved by the U.S. Food and DrugAdministration. This assay has been validated pursuantto the CLIA regulations and is used for clinicalpurposes.THIS TEST WAS PERFORMED AT:[id number] [place] [phone] DUMAS MD,PHD Blood Venous blood specimen / Unknown 02/12/2025 10:30 AM EDT 02/12/2025 2:09 PM EDT Juliet Adhikari MD LAB BLOOD ORDERABLES Final Result Performing Organization Address [facility] Co de Phone Number [facility] [address] [place] [phone] * Magnesium (02/12/2025 10:30 AM EDT) Pathologist [facility] Magnesium 2.1 1.6 - 2.6 mg/dL [facility] Blood Venous blood specimen / Unknown 02/12/2025 10:30 AM EDT 02/12/2025 2:09 PM EDT Juliet Adhikari MD LAB BLOOD ORDERABLES Final Result Performing Organization Address [facility] Co de Phone Number [facility] [address] [place] [phone] * (ABNORMAL) Lipid Panel, Standard (02/12/2025 10:30 AM EDT) Triglycerides 321(H) <150 mg/dL [facility] Comment:Desirable Triglyceri de: less than 150 mg/dLBorderline High Triglyceride 150-199 mg/dLHigh Triglyceride: 200-499 mg/dLVery High Triglyceride: greater than or equal to 5OO mg/dL Cholesterol 260(H) <200 mg/dL [facility] Comment:Desirable Cholestero l: less than 200 mg/dLBorderline High Cholesterol: 200-239 mg/dLHigh Cholesterol: greater than 239 mg/dL LDL Cholesterol Calculated 158(H) <100 mg/dL [facility] Comment:Desirable LDL: less than 100 mg/dLNear Optimal/Above Optimal LDL: 110- 129 mg/dLBorderline High LDL: 130-159 mg/dLHigh LDL: 160-189 mg/dLVery High LDL: greater than or equal to 190 mg/dL HDL Cholesterol 38(L) >40 mg/dL [facility] Comment:Desirable HDL: great er than 40 mg/dL Note: This HDL assay may give artificially low results in patients with liver disease. 02/12/2025 10:3 0 AM EDT 02/12/2025 2:09 PM EDT us Generic External Data Provider LAB BLOOD ORDERAB LES Final Result [facility] [address] [place] [phone] * (ABNORMAL) Comprehensive Metabolic Panel (02/12/2025 10:30 AM EDT) Sodium 140 135 - 145 mmol/L [facility] Potassium 4.4 3.3 - 5.1 mmol/L [facility] Chloride 110(H) 96 - 108 mmol/L [facility] Carbon Dioxide 23 22 - 29 mmol/L [facility] Anion Gap 11(L) 12 - 20 [facility] Urea Nitrogen (BUN) 20(H) 9 - 16 mg/dL [facility] Creatinine, Serum 0.97 0.5 - 1.4 mg/dL [facility] Estimated Glomerular Filt Rate 59 [facility] Comment:Chronic Kidney Disea se: Estimated GFR < 60 mL/min/[id number] Kidney Disease: Estimated GFR < 15 mL/min/1.73m2 Glucose 192(H) 60 - 115 mg/dL [facility] Calcium 10.8(H) 8.4 - 10.2 mg/dL [facility] Bilirubin, Total 0.2 0.0 - 1.0 mg/dL [facility] Aspartate Amino Transferase 23 5 - 31 U/L [facility] Alanine Aminotransferase 18 0 - 31 U/L [facility] Total Protein 7.7 6.5 - 8.0 g/dL [facility] Albumin Level 4.0 3.5 - 5.0 g/dL [facility] Alkaline Phosphatase 127(H) 39 - 117 U/L [facility] Blood Venous blood specimen / Unknown 02/12/2025 10:30 AM EDT 02/12/2025 2:09 PM EDT us Juliet Adhikari MD LAB BLOOD ORDERABLES Final Result [facility] [address] [place] [phone] * Referral to Hand Surgery (02/12/2025) us Juliet Adhikari MD OUTPATIENT REFERRAL ORDERAB LES Final Result * (ABNORMAL) Urinalysis, Complete, with Reflex to Culture (01/09/2025 8:57 AM EDT) Color Urine Yellow [facility] Appearance Urine Clear [facility] PH 5.0 5.0 - 9.0 [facility] Glucose Urine UA Negative Negative mg/dL [facility] Urine Blood Negative Negative [facility] Specific [place] - Urine >=1.030(H) 1.005 - 1.025 [facility] Urine Protein 100 (2+)(A) Neg-Trace mg/dL [facility] Urine Ketones Negative Negative mg/dL [facility] Nitrite Urine Negative Negative [facility] Leukocyte Esterase Urine Negative Negative [facility] RBC Urine 0-2 0 - 2 /HPF [facility] Urine WBC 6-10(A) 0 - 5 /HPF [facility] Urine Squamous Epithelial Cell 0-2 0 - 2 /HPF [facility] Urine Bacteria None Seen None Seen [facility] Hyaline Casts, Urine 0-2 0 - 2 /LPF [facility] 01/09/2025 8:57 AM EDT 01/09/2025 9:02 AM EDT Narrative [facility] - 01/09/2025 9:16 AM EDT Urine, Clean Catch us Generic External Data Provider LAB URINE ORDERAB LES Final Result Performing Organization Address City/State/[facility] Co de Phone Number [facility] [address] [place] [phone] * CT Abdomen Pelvis w/ Contrast (01/09/2025 7:45 AM EDT) Anatomical Region Laterality Modality Body, Pelvis, Abdomen Computed T omography 01/09/2025 7:45 AM EDT Narrative 01/09/2025 8:25 AM EDT [address] [address] [address] Scan Report Signed Patient: Jannet Alvarez MR#: [id number] : 1965 Acct:[id number] Age/Sex: 59 / F ADM Date: 01/09/25 Loc: HO.ED Attending Dr: Ordering Physician: Alexei Iniguez MD Date of Service: 01/09/25 Procedure(s): CT abdomen pelvis w IV con Accession Number(s): [id number] cc: Juliet Adhikari MD; Alexei Iniguez MD Report Number: [id number]: Total DLP = 0.00 mGy-cm Reason for Exam: Abdominal pain, SBO. EXAMINATION: CT ABDOMEN AND PELVIS WITH CONTRAST CLINICAL INFORMATION: Abdominal pain. SBO COMPARISON: January 07, 2023 TECHNIQUE: Multidetector volumetric images were obtained from the superior aspect of the liver through the pubic symphysis following administration 85 mL of Omnipaque 350 intravenous contrast. Sagittal and coronal reformatted images were obtained on the technologist's workstation. Oral contrast: No This CT examination was performed using dose optimization techniques as appropriate, variously including the following: *Automated exposure control *Adjustment of mA and/or kV according to patient size (this includes techniques or standardized protocols for targeted exams where dose is matched to indication/reason for exam; i.e. extremities or head) *Use of iterative reconstruction technique DLP: 589 mGy centimeter. FINDINGS: Patient's motion artifact. LUNG BASES: No acute airspace disease. LIVER, GALLBLADDER, AND BILIARY TREE: Liver measures 19 cm. No focal mass. Main portal vein is patent. No intrahepatic biliary ductal dilatation. Status post, likely, laparoscopic cholecystectomy. Common bile duct measures 4 mm. PANCREAS: No focal mass. No peripancreatic fluid collection. No main pancreatic ductal dilatation. SPLEEN: 8 cm. No focal mass. ADRENAL GLANDS: No nodular lesions. KIDNEYS AND URETERS: No hydronephrosis. No gross nephrolithiasis. 12 mm fluid density lesion at the lower pole right kidney. Subcentimeter cystic lesion, upper pole and midportion of the left kidney. No enhancing mass. Normal enhancement of the renal cortex. BLADDER: Collapsed. GASTROINTESTINAL TRACT: Gas and fluid-filled nondistended small bowel loops. No intestinal wall thickening. Abundant stool in the large intestine. Appendix is normal. No pneumatosis intestinalis. No ascites. No pneumoperitoneum. No peripheral enhancing fluid collection, peritoneal cavity. ABDOMINAL WALL: Small fat-containing umbilical hernia and diastases abdominal rectus muscles in the periumbilical region. LYMPH NODES: Mild prominent, nonspecific retroperitoneum and mesenteric. VASCULAR: Mixed plaques throughout the abdominal aorta wall and iliac arteries without aneurysm or dissection. Calcified plaques in the coronary arteries and descending thoracic aorta. PELVIC VISCERA: 5 mm hyperdensity at the correct original region of the cranium, nonspecific and unchanged since 2022. OSSEOUS STRUCTURES: Multilevel thoracolumbar spondylosis pronounced at L5-S1. Prominent transverse processes of L5 articulating with the sacrum. Last rib-bearing greater than labeled T12. Mild degenerative changes in the coxofemoral joints. CT/CT abdomen pelvis w IV con IMPRESSION: No intestinal bowel obstruction pattern. Small fat-containing umbilical hernia. Atherosclerosis disease. Hepatomegaly. Bilateral renal cysts. Fleischner guidelines were followed. Electronically signed by: Gavin Lechuga MD 01/09/2025 08:22 AM EDT Dictated By: Gavin Fitch MD Signed By: <Electronically signed by Gavin Brown MD in OV> 01/09/25 0822 DD/ 0745 TD/TT: 01/09/25 0753 Spot Washer: Procedure Note Hernandezter, Image - 01/09/[address] [address] [address] Scan Report Signed Patient: Dyana Alvarez#: [id number] : 1965Acct:[id number] Age/Sex: 59 / FADM Date: 01/09/25 Loc: HO.ED Attending Dr: Ordering Physician: Alexei Iniguez MD Date of Service: 01/09/25 Procedure(s): CT abdomen pelvis w IV con Accession Number(s): [id number] cc: Juliet Adhikari MD; Alexei Iniguez MD Report Number: [id number]: Total DLP = 0.00 mGy-cm Reason for Exam: Abdominal pain, SBO. EXAMINATION: CT ABDOMEN AND PELVIS WITH CONTRAST CLINICAL INFORMATION: Abdominal pain. SBO COMPARISON: January 07, 2023 TECHNIQUE: Multidetector volumetric images were obtained from the superior aspect of the liver through the pubic symphysis following administration 85 mL of Omnipaque 350 intravenous contrast. Sagittal and coronal reformatted images were obtained on the technologist's workstation. Oral contrast: No This CT examination was performed using dose optimization techniques as appropriate, variously including the following: *Automated exposure control *Adjustment of mA and/or kV according to patient size (this includes techniques or standardized protocols for targeted exams where dose is matched to indication/reason for exam; i.e. extremities or head) *Use of iterative reconstruction technique DLP: 589 mGy centimeter. FINDINGS: Patient's motion artifact. LUNG BASES: No acute airspace disease. LIVER, GALLBLADDER, AND BILIARY TREE: Liver measures 19 cm. No focal mass. Main portal vein is patent. No intrahepatic biliary ductal dilatation. Status post, likely, laparoscopic cholecystectomy. Common bile duct measures 4 mm. PANCREAS: No focal mass. No peripancreatic fluid collection. No main pancreatic ductal dilatation. SPLEEN: 8 cm. No focal mass. ADRENAL GLANDS: No nodular lesions. KIDNEYS AND URETERS: No hydronephrosis. No gross nephrolithiasis. 12 mm fluid density lesion at the lower pole right kidney. Subcentimeter cystic lesion, upper pole and midportion of the left kidney. No enhancing mass. Normal enhancement of the renal cortex. BLADDER: Collapsed. GASTROINTESTINAL TRACT: Gas and fluid-filled nondistended small bowel loops. No intestinal wall thickening. Abundant stool in the large intestine. Appendix is normal. No pneumatosis intestinalis. No ascites. No pneumoperitoneum. No peripheral enhancing fluid collection, peritoneal cavity. ABDOMINAL WALL: Small fat-containing umbilical hernia and diastases abdominal rectus muscles in the periumbilical region. LYMPH NODES: Mild prominent, nonspecific retroperitoneum and mesenteric. VASCULAR: Mixed plaques throughout the abdominal aorta wall and iliac arteries without aneurysm or dissection. Calcified plaques in the coronary arteries and descending thoracic aorta. PELVIC VISCERA: 5 mm hyperdensity at the correct original region of the cranium, nonspecific and unchanged since 2022. OSSEOUS STRUCTURES: Multilevel thoracolumbar spondylosis pronounced at L5-S1. Prominent transverse processes of L5 articulating with the sacrum. Last rib-bearing greater than labeled T12. Mild degenerative changes in the coxofemoral joints. CT/CT abdomen pelvis w IV con IMPRESSION: No intestinal bowel obstruction pattern. Small fat-containing umbilical hernia. Atherosclerosis disease. Hepatomegaly. Bilateral renal cysts. Fleischner guidelines were followed. Electronically signed by: Gavin Lechuga MD 01/09/2025 08:22 AM EDT Dictated By: Gavin Fitch MD Signed By: <Electronically signed by Gavin Brown MDin OV> 01/09/25 0822 DD/ 0745 TD/TT: 01/09/25 0752 Spot Washer: [facility] External Provider IMG CT PROCEDURES Final Result * Culture, Urine, Routine (01/09/2025 12:00 AM EDT) Urine Urine specimen obtained by clean catch procedure / Unknown 01/09/2025 01/09/2025 Comment:[facility] - 01/10/2025 10:22 AM EDT Urine Culture No growth. Specimen Source: Urine clean catch Generic External Data Provider LAB MICROBIOLOGY - GENERAL ORDERABLES Final Result Performing Organization Address [facility] Co de Phone Number [facility] [address] [place] [phone] * (ABNORMAL) Glucose, Whole Blood (01/04/2025 2:17 PM EDT) Glucose, Whole Blood 412(HH) 60 - 115 mg/dL [facility] Comment:METER #: [id number] 0Testing performed in the Endocrinology Department [address] , [address], [facility]. 01/04/2025 2:17 PM EDT 01/04/2025 2:22 PM EDT Generic External Data Provider LAB BLOOD ORDERAB LES Final Result Performing Organization Address [facility] Co de Phone Number [facility] [address] [place] [phone] * (ABNORMAL) POCT Glucose (12/21/2024 2:45 PM EDT) [facility] Glucose Blood, POC 227(A) 60 - 200 mg/dL QC Media Lot # [id number] Lot# Expiration Date [id number] Comment:random Blood Capillary blood specimen / Unknown 12/21/2024 2:45 PM EDT Juliet Adhikari MD POINT OF CARE TEST ENTER/ED IT ORDERABLES Final Result * (ABNORMAL) POCT Hgb A1c (12/21/2024 2:44 PM EDT) Hemoglobin A1C 10.0(A) 4.0 - 5.7 % QC Media Lot # [id number] Lot# Expiration Date [id number] Blood 12/21/2024 2:44 PM EDT us Juliet Adhikari MD POINT OF CARE TEST ENTER/ED IT ORDERABLES Final Result * Colonoscopy (02/24/2023 3:37 PM EST) Anatomical Region Laterality Modality Endoscopy us Historical Provider ENDOSCOPY PROCEDURE ORDER MAINE Final Result * THINPREP PAP (09/02/2020 1:57 PM EDT) [...] along with historic and current clinical information. Attendance Secretary : [facility] Comment: DCR, CT(ASCP) CT screening location: [place] [address] Infection Shift in vaginal allie suggestive of bacterial vaginosis. [facility] Interpretation/R esult: Negative for intraepithelial lesion or malignancy. [facility] LMP: NONE GIVEN [facility] Prev. BX: NONE GIVEN [facility] Prev. PAP: NONE GIVEN [facility] SOURCE: None given [facility] Statement Of Adequacy: [facility] Comment: Satisfactory for evaluation. Endocervical/transformation zone component absent. Age and/or menstrual status not provided 09/02/2020 1:57 PM EDT us Kylee DE [facility] LAB PATHOLOGY ORDERABLES Final Result [facility] [address] * HPV mRNA E6/E7 (09/02/2020 1:57 PM EDT) HPV nRNA E6/E7 Not Detected Not Detected [facility] Comment: Methodology: Real Estate Agent/Broker-Mediated Amplification This assay detects E6/E7 viral messenger RNA (mRNA) from 14 high-risk HPV types (16,18,31,33,35,39,45,51,52,56,58,59,66,68). The analytical performance characteristics of this assay have been determined by [employer]. The modifications have not been cleared or approved by the FDA. This assay has been validated pursuant to the CLIA regulations and is used for clinical purposes. For additional information, please refer to http://education.[employer]/faq/GUM317r1 (This link if provided for information/ educational purposes only.) 09/02/2020 1:57 PM EDT us Kylee DE LA [facility] LAB BLOOD ORDERABLES Colleen bailey Result [facility] [address] from Last 3 Months or Most Recently Relevant to Health Maintenance Additional Health Concerns Active Problems Noted Date [...] neuropathy 02/27/2025 Patient has diabetic neuropathy 02/27/2025 Insurance [facility] < 65 JHON CARMICHAEL [id number] [place] AD[place] Care Teams Tapper Helper Relationship Specialty Start Date End Date Juliet Adhikari MD [address] [place] [phone] PCP - General Internal Medicine 02/15/12
--- OUTSIDE RECORDS SUMMARY | 2025-03-07 21:01 | XMS_ITS | Encounter Summary ---
Author Organization [employer] Address [address] [place] [address] [place] [address] Care Team Providers Care Wax Pattern Assembler Name Role Phone Juliet Adhikari MD Primary Care Provider [phone] Reason for Visit * Reason Comments Med Change Request Encounter Details Date Type Department Care Team ([facility] Contact Info) Description 05/12/2022 Refill [facility] [address] [place], [place] [phone] Juliet Adhikari MD [address] [place], [place] [phone] Diabetic nephropathy associated with type 2 diabetes mellitus (CMS/[facility]) Social History Tobacco Use Types Packs/Day Years [...] (HCC) documented in this encounter Care Teams Wax Pattern Assembler Relationship Specialty Start Date End Date Juliet Adhikari MD [address] [place] [phone] PCP - General Internal Medicine 02/15/12 documented as of this encounter
--- OUTSIDE RECORDS SUMMARY | 2025-03-07 21:01 | XMS_ITS | Encounter Summary ---
Author Organization [employer] Address [address] [place] [address] Care Team Providers Care Water Treatment Plant Repairer Name Role Phone Juliet Adhikari MD Primary Care Provider [phone] Reason for Visit * Reason Comments Med Change Request Encounter Details Date Type Department Care Team ([facility] Contact Info) Description 05/11/2022 Refill [facility] PEDS [address] [place], [place] [phone] Juliet Adhikari MD [address] [place], [place] [phone] Diabetic nephropathy associated with type 2 diabetes [...] (HCC) documented in this encounter Care Teams Water Treatment Plant Repairer Relationship Specialty Start Date End Date Juliet Adhikari MD [address] [place] [address] PCP - General Internal Medicine 02/15/12 documented as of this encounter
--- OUTSIDE RECORDS SUMMARY | 2025-03-07 21:01 | XMS_ITS | Encounter Summary ---
Author Organization [employer] Address [address] [place] [address] 7 [place] [address] Care Team Providers Care Solar Energy Advisor Name Role Phone Juliet Adhikari MD Primary Care Provider [phone] Reason for Visit * Reason Comments Med Change Request Encounter Details Date Type Department Care Team ([facility] Contact Info) Description 12/21/2024 Refill [facility]S [address] [place], [place] [phone] Juliet Adhikari MD [address] [place], [place] [phone] Carpal tunnel syndrome of right wrist Social [...] documented as of this encounter Care Teams Solar Energy Advisor Relationship Specialty Start Date End Date Juliet Adhikari MD [address] [place] [phone] PCP - General Internal Medicine 02/15/12 documented as of this encounter
--- OUTSIDE RECORDS SUMMARY | 2025-03-07 21:01 | XMS_ITS | Encounter Summary ---
Author Organization [employer] Address [address] [facility] 7 [place] [address] Care Team Providers Care Chemical Operations And Training Name Role Phone Juliet Adhikari MD Primary Care Provider [phone] Encounter Details Date Type Department Care Team (Late st Contact Info) Description 05/07/2022 Orders Only [facility] MEDICINE [address] [place] [phone] Juliet Adhikari MD [address] [place], [place] [phone] Type 2 diabetes mellitus with diabetic polyneuropathy, with long-term current use of insulin (CMS/HCC) (Primary Dx) Social History Tobacco Use [...] with long-term current use of insulin (CMS/HCC) CBC WITH AUTO DIFFERENTIAL Routine 09/09/2022 2:33 PM EDT Type 2 diabetes mellitus with diabetic polyneuropathy, with long-term current use of insulin ([facility]) BASIC METABOLIC PANEL Routine 09/09/2022 2:33 PM EDT Type 2 diabetes mellitus with diabetic polyneuropathy, with long-term current use of insulin ([facility]) CBC WITH AUTO DIFFERENTIAL Routine 08/25/2022 7:28 PM EDT Type 2 diabetes mellitus with diabetic polyneuropathy, with long-term current use of insulin ([facility]) BASIC METABOLIC PANEL Routine 08/25/2022 7:28 PM EDT Type 2 diabetes mellitus with diabetic polyneuropathy, with long-term current use of insulin ([facility]) GLUCOSE, WHOLE BLOOD Routine 08/25/2022 7:21 PM EDT Type 2 diabetes mellitus with diabetic polyneuropathy, with long-term current use of insulin ([facility]) documented in this encounter Results * High Sensitivity Troponin I (09/09/2022 2:33 PM EDT) [facility] TROPONIN I HIGH SENSITIVITY 4.4 <3.5 - 17.0 ng/L [facility] Comment:The Lux high sens itivity Troponin-I results should beused in conjunction with other diagnostic information suchas ECG, clinical observations and information, and patientsymptoms to aid in the diagnosis of MT. 09/09/2022 2:33 PM EDT 09/09/2022 2:37 PM EDT us [facility] External Provider LAB BLO OD ORDERABLES Final Result [facility] [address] [place] [phone] * (ABNORMAL) Basic Metabolic Panel (09/09/2022 2:33 PM EDT) Sodium 137 135 - 145 mmol/L [facility] Potassium 4.5 3.3 - 5.1 mmol/L [facility] Chloride 106 96 - 108 mmol/L [facility] Carbon Dioxide 22 22 - 29 mmol/L [facility] Anion Gap 14 12 - 20 [facility] Urea Nitrogen (BUN) 15 9 - 16 mg/dL [facility] Creatinine, Serum 1.08 0.5 - 1.4 mg/dL [facility] Creatinine Clr Calc Pharmacy 61.6 [facility] Comment:Provided height and weight: 162.56 cm,87.9 kg.eGFR (calculated from the MDRD study equation) and eCrCl(calculated from the Cockcroft-Gault equation) are based ondifferent parameters and may not yield comparable results.If eCrCl result is absurd, please check patient'sheight/weight. Estimated Glomerular Filt Rate 52 [facility] Comment:NOTE: For -Am erican individuals, multiply the result by 1.210.Chronic Kidney Disease: Estimated GFR < 60 mL/min/1.37r3Dhjxdu Kidney Disease: Estimated GFR < 15 mL/min/1.73m2 Glucose 398(HH) 60 - 115 mg/dL [facility] Comment:Critical value for G LUR: Results called to and read backby: SCIARUD Person calling: JAROD Date: 09/09/22 Time: 1457 Calcium 9.8 8.4 - 10.2 mg/dL [facility] 09/09/2022 2:33 PM EDT 09/09/2022 2:37 PM EDT us [facility] External Provider LAB BLO OD ORDERABLES Final Result [facility] [address] [place] [phone] * (ABNORMAL) CBC auto differential (09/09/2022 2:33 PM EDT) White Blood Count 10.6 4.8 - 10.8 X10*3/uL [facility] Red Blood Count 4.58 4.20 - 5.50 X10*6/uL [facility] Hemoglobin 14.8 12.0 - 16.0 g/dl [facility] Hematocrit 43.1 37.0 - 47.0 % [facility] Mean Corpuscular Volume 94.1 80.0 - 98.0 fL [facility] Mean Corpuscular Hemoglobin 32.3 27.0 - 33.0 pg [facility] Mean Corpuscular HGB Conc 34.3 31.0 - 35.0 g/dl [facility] Red Cell Distribution Width 12.6 11.0 - 16.0 % [facility] Platelet Count 196 160 - 400 X10*3/uL [facility] Mean Platelet Volume 11.5 9.4 - 12.3 fL [facility] Neutrophils Percent Auto 67.8 45 - 73 % [facility] Imm Gran Pct Auto 0.6(H) 0.0 - 0.4 % [facility] Lymphocytes Percent Auto 23.2 20 - 40 % [facility] Monocytes Percent Auto 6.8 2 - 11 % [facility] Eosinophils Percent Auto 1.1 0 - 4 % [facility] Basophils Percent Auto 0.5 0 - 2 % [facility] NRBC Pct Auto 0.0 0.0 - 0.2 /100WBC [facility] Neutrophils Absolute Auto 7.2 2.0 - 8.3 x10*3/uL [facility] Imm Gran Abs Auto 0.06(H) 0.00 - 0.03 X10*3/uL [facility] Lymphocytes Absolute Auto 2.5 1.2 - 4.9 X10*3/uL [facility] Monocytes Absolute Auto 0.7 0.1 - 1.2 X10*3/uL [facility] Eosinophils Absolute Auto 0.1 0.0 - 0.4 X10*3/uL [facility] Basophils Absolute Auto 0.1 0.0 - 0.2 X10*3/uL [facility] NRBC Abs Auto 0.000 0.0 - 0.012 X10*3/uL [facility] 09/09/2022 2:33 PM EDT 09/09/2022 2:37 PM EDT [facility] External Provider LAB BLO OD ORDERABLES Final Result [facility] [address] [place] [phone] * (ABNORMAL) Basic Metabolic Panel (08/25/2022 7:28 PM EDT) Sodium 133(L) 135 - 145 mmol/L [facility] Potassium 4.4 3.3 - 5.1 mmol/L [facility] Chloride 103 96 - 108 mmol/L [facility] Carbon Dioxide 17(L) 22 - 29 mmol/L [facility] Anion Gap 17 12 - 20 [facility] Urea Nitrogen (BUN) 23(H) 9 - 16 mg/dL [facility] Creatinine, Serum 1.32 0.5 - 1.4 mg/dL [facility] Creatinine Clr Calc Pharmacy 52.6 [facility] Comment:Provided height and weight: 162.56 cm,95.254 kg.eGFR (calculated from the MDRD study equation) and eCrCl(calculated from the Cockcroft-Gault equation) are based ondifferent parameters and may not yield comparable results.If eCrCl result is absurd, please check patient'sheight/weight. Estimated Glomerular Filt Rate 41 [facility] Comment:NOTE: For -Am erican individuals, multiply the result by 1.210.Chronic Kidney Disease: Estimated GFR < 60 mL/min/1.69e2Pgacji Kidney Disease: Estimated GFR < 15 mL/min/1.73m2 Glucose 509(HH) 60 - 115 mg/dL [facility] Comment:Critical value for t est(s): GLUR Results called to and readback by: ROSANNA Person calling: JOSHUA Date: 08/25/22 Time:2018 Calcium 10.0 8.4 - 10.2 mg/dL [facility] 08/25/2022 7:28 PM EDT 08/25/2022 7:31 PM EDT us [facility] External Provider LAB BLO OD ORDERABLES Final Result [facility] [address] [place] [phone] * CBC auto differential (08/25/2022 7:28 PM EDT) White Blood Count 9.1 4.8 - 10.8 X10*3/uL [facility] Red Blood Count 4.49 4.20 - 5.50 X10*6/uL [facility] Hemoglobin 14.2 12.0 - 16.0 g/dl [facility] Hematocrit 41.4 37.0 - 47.0 % [facility] Mean Corpuscular Volume 92.2 80.0 - 98.0 fL [facility] Mean Corpuscular Hemoglobin 31.6 27.0 - 33.0 pg [facility] Mean Corpuscular HGB Conc 34.3 31.0 - 35.0 g/dl [facility] Red Cell Distribution Width 12.4 11.0 - 16.0 % [facility] Platelet Count 182 160 - 400 X10*3/uL [facility] Mean Platelet Volume 11.7 9.4 - 12.3 fL [facility] Neutrophils Percent Auto 60.5 45 - 73 % [facility] Imm Gran Pct Auto 0.3 0.0 - 0.4 % [facility] Lymphocytes Percent Auto 28.8 20 - 40 % [facility] Monocytes Percent Auto 7.9 2 - 11 % [facility] Eosinophils Percent Auto 2.1 0 - 4 % [facility] Basophils Percent Auto 0.4 0 - 2 % [facility] NRBC Pct Auto 0.0 0.0 - 0.2 /100WBC [facility] Neutrophils Absolute Auto 5.5 2.0 - 8.3 x10*3/uL [facility] Imm Gran Abs Auto 0.03 0.00 - 0.03 X10*3/uL [facility] Lymphocytes Absolute Auto 2.6 1.2 - 4.9 X10*3/uL [facility] Monocytes Absolute Auto 0.7 0.1 - 1.2 X10*3/uL [facility] Eosinophils Absolute Auto 0.2 0.0 - 0.4 X10*3/uL [facility] Basophils Absolute Auto 0.0 0.0 - 0.2 X10*3/uL [facility] NRBC Abs Auto 0.000 0.0 - 0.012 X10*3/uL [facility] 08/25/2022 7:28 PM EDT 08/25/2022 7:31 PM EDT [facility] External Provider LAB BLO OD ORDERABLES Final Result Performing Organization Address [facility]/ZIP Co de Phone Number [facility] [address] [place] [phone] * (ABNORMAL) GLUCOSE, WHOLE BLOOD (08/25/2022 7:21 PM EDT) [facility] Signature Glucose, Whole Blood 481(HH) 60 - 115 mg/dL [facility] Comment:METER #: [id number] 1 08/25/2022 7:21 PM EDT 08/25/2022 7:25 PM EDT [facility] External Provider LAB BLO OD ORDERABLES Final Result Performing Organization Address [facility] Co de Phone Number [facility] [address] [place] [address] [phone] documented in this encounter Visit Diagnoses Diagnosis Type 2 diabetes mellitus with diabetic polyneuropathy, with long-term current use of insulin (HCC)- Primary documented in this encounter Care Teams Chemical Operations And Training Relationship Specialty Start Date End Date Juliet Adhikari MD [address] [place] [address] [phone] PCP - General Internal Medicine 02/15/12 documented as of this encounter
--- NOTE | 2025-03-07 21:16 | PC.NURSE ---
patient came up to nurses station and states she didn't want to wait here anymore and was leaving. self removed her IV. informed patient that she would most likely be dc if RN could go speak with provider patient stated she was still going to leave now. provider aware and patient ambulated with steady gait to exit.
[2025-03-07 21:18] VITALS: BP 144/65; PULSE 74; RESP 14; TEMP 36.7; O2SAT 98
== END 2025-03-07 21:18 | disposition home or self-care (01) ==
PROVIDERS: Emergency Provider Emergency Medicine; PCP Internal Medicine
DX: E11.22 Type 2 diabetes mellitus with diabetic chronic kidney disease (principal); E11.65 Type 2 diabetes mellitus with hyperglycemia; N18.2 Chronic kidney disease, stage 2 (mild); R11.0 Nausea; R42 Dizziness and giddiness; R51.9 Headache, unspecified; R10.12 Left upper quadrant pain; G62.9 Polyneuropathy, unspecified; F39 Unspecified mood [affective] disorder; Z79.899 Other long term (current) drug therapy; Z79.4 Long term (current) use of insulin
CPT/HCPCS: 36415; 80053; 82010; 82947; 83735; 84484; 85025; 93005; 99283; 99285

== ENCOUNTER → 2025-03-07 17:08 | Outpatient (BNV) | payer OTHER, SELFPAY | PROVIDERS: Emergency Provider Emergency Medicine; PCP Internal Medicine; Visit Provider Internal Medicine | DX: R53.1 Weakness (principal) | CPT/HCPCS: 93010 ==

== ENCOUNTER → 2025-03-11 14:28 | Outpatient (AMB) | payer OTHER, SELFPAY ==
[2025-03-11 14:36] VITALS: BP 120/74; PULSE 82; BMI 32.5
--- NOTE | 2025-03-11 14:36 | A.OFFVIS_ITS ---
Vital Signs 03/11/25 14:36 Height 5 ft 4 in Weight 189 lb 9.561 oz BMI 32.5 BP 120/74 Blood Pressure Location Lt brachial Position Sitting Pulse 82 Intake Visit Reasons: diabetic gastroparesis/Abd pain pt seen in ER Intake Note: ER c/o abdominal pain new pain on left lower abdomen more on the surface hx gastroparesis Retail Merchandising Coordinator Required: No Allergies penicillin V Allergy (Unknown, Verified 03/07/25 16:25) Hives Penicillins Allergy (Unknown, Verified 03/07/25 16:25) HIVES adhesive Allergy (Verified 03/07/25 16:25) Rash morphine Allergy (Verified 03/07/25 16:25) Itching HPI Comments Details: 59 y.o F with PMH of CAD s/p PCI 2023 uncontrolled DM, fam hx of colon cancer (brother in 50s), fam hx of breast ca (mat aunts x2), personal hx of polyps, who is here for N/V and colon ca screening. Pt reports was not seeing a doctor x 5 years but recently re-established care with PCP. Found to have uncontrolled DM, had ER visit last week for BG 500. Now on basal+bolus insulin regimen. Kelle 3 reviewed, most sugars still above 250. Pt reports has intermittent abd bloating, and pain on R side with nausea and vomiting. Was not able to tolerate GLP-1. Fam hx crc in brother in his 50s - from it. Of note - pt gives ongoing hx of tobacco and marijuana use. Does not report opiate use but + cocaine. Quit after TX in 2023. Was admitted in [facility] and underwent PCI with coronary stenting. Records N/A, requested. [facility] Medical History Diabetic polyneuropathy associated with type 2 diabetes mellitus Spinal stenosis of lumbar region without neurogenic claudication Hx of colonic polyp Mood disorder Stage 2 chronic kidney disease Irritable bowel syndrome Hypercholesteremia Diabetic nephropathy associated with type 2 diabetes mellitus Patellofemoral syndrome Tear of meniscus of right knee COVID-19 Tear of meniscus of right knee as current injury 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 DM2 (diabetes mellitus, type 2) Depressed Anxiety Bipolar 1 disorder Diabetes 1.5, managed as type 1 Surgical History H/O adenoidectomy History of tubal ligation History of cholecystectomy History of partial hysterectomy History of dental surgery Social History Household Members: Children Household Members Other:: daughter Housing: Apartment Do you presently have visiting nurse or other home services: No Alcohol intake: current Alcohol intake frequency: holidays/special occasions only Alcohol type: wine Patient Tobacco Use Status: Current everyday Tobacco user Tobacco use type: Cigarette Cigarettes Per Day: 20 e-Cigarette/Vaping Use: Never Used Second Hand Smoke Exposure: Yes Substance Use Type: Marijuana service: No Current occupational status: disabled Review of Systems Const All systems reviewed & are unremarkable except as noted in HPI and below Physical Exam Exam Exam: No apparent distress Nonicteric Abdomen soft, nondistended Alert and oriented x3, normal gait Vital Signs: Last Vital Signs Pulse 82 03/11/25 14:36 BP 120/74 03/11/25 14:36 BMI result Body Mass Index 32.5 Assessment & Plan Assessment & Plan (1) Nausea & vomiting: Code(s): R11.2 - Nausea with vomiting, unspecified Category: Medical (2) Type 2 diabetes mellitus with hyperglycemia: Code(s): E11.65 - Type 2 diabetes mellitus with hyperglycemia Category: Medical (3) Non-ST elevation TX (NSTEMI): Code(s): I21.4 - Non-ST elevation (NSTEMI) myocardial infarction Category: Medical (4) Cocaine abuse: Code(s): F14.10 - Cocaine abuse, uncomplicated Category: Medical (5) Family hx of colorectal cancer: Code(s): Z80.0 - Family history of malignant neoplasm of digestive organs Category: Medical Plan 1. N/V Reveiwed with the pt that difficult to ascertain gastroparesis with ongoing uncontrolled BG as severe hyperglycemia in itself also delays gastric emptying without underlying gastroparesis. She is now re-established with endocrine and working on this. Also encouraged her to see CDE and RD to help further. Will book EGD to r/o GERD, esophagitis/gastritis, PUD causing N/V. 2. Fam hx of CRC Pt OVERDUE on colo. This will be booked alongside EGD. PEG prep Rxed and instructions reviewed thoroughly. Handout provided as well. 3. CAD Pt advised that due to recent hx of TX within a year will get cardiology records and clearance prior to scheduling egd/colo. Pt on ASA monotherapy only which does not need to be held for the procedures. Follow up after scopes Orders: Referrals GI Procedure Notification R11.2 - Nausea with vomiting, unspecified, Z80.0 - Family history of malignant neoplasm of digestive organs Medications: New peg 3350-electrolytes 236-22.74-6.74 -5.86 gram (Golytely) as per split prep instructions, until fecal effluent is clear 240 mL PO Q10M 4,000 mL 0RF colonoscopy omeprazole 20 mg PO DAILY 90 caps 1RF Coding Level of Care Code Complex visit Add On G2211 Diagnoses Nausea & vomiting R11.2 Type 2 diabetes mellitus with hyperglycemia E11.65 Non-ST elevation TX (NSTEMI) I21.4 Cocaine abuse F14.10 Family hx of colorectal cancer Z80.0
--- OUTSIDE RECORDS SUMMARY | 2025-03-11 19:27 | XMS_ITS | Clinical Summary ---
Author Organization Formerly [facility] Address [address] [facility] [address] [place], [place] [id number] Phone Care Team Providers Care Motor Coach Chauffeur Name Role Phone Pcp, Unknown Primary Care [...] Insurance [employer] MEDICARE REPLACEMENT JHON CARMICHAEL [id number] Care Teams Motor Coach Chauffeur Relationship Specialty Start Date End Date Pcp, Unknown PCP - General 01/29/24 Additional Source Comments The information contained in this document represents components of the legal health record. It is not the complete legal health record.[facility]ly [facility]
--- OUTSIDE RECORDS SUMMARY | 2025-03-11 19:27 | XMS_ITS | Data Portability ---
Author Organization [place] [facility] Address [address] [place] [address] Care Team Providers Care Song And Dance Performer Name Role Phone ABNER CAMPBELL Primary Care Provider [phone] Assessment Encounter Date Assessment Date Assessment LastModified by Organization Details LastModified Time 07/16/2019 07/16/2019 Overview/History :David billings is a 53-year-old female with a medical history significant for asthma, depression, diabetes, hypertension, anxiety, bipolar disorder and obstructive sleep apnea. She contacted [facility] when she noted that she had an [...] today. Time On Scene with Patient: 00:24:58 [email or web address] Not available 07/16/2019 17:53:41 Plan of Treatment [...] By Organization Details Last Modified Time 07/16/2019 [id number] cheikh king: car e instructions [email or web address] Not available 07/16/2019 17:53:42 Thank you for yo ur visit with [facility] today. You were seen today for treatment [...] in your condition between 8am-10pm, please call [facility] at [phone] to help navigate your care. [email or web address] Not available 07/16/2019 14:25:28 Reason for Referral None Reported. Procedures Surgical History Date Name Laterality Status Provider Name and Address Organization Details Recorded Time 07/16/19 20 Medication Review completed [facility] BOSS, [place], [address], [place] [facility] 07/16/2019 14:25:19 Imaging Results None recorded. Procedure Notes None recorded. Medical Equipment None Reported. Allergies Allergen ID Allergen Name Allergen Category Reaction Reaction Severity Criticality Documentation Date Start Date Code Code System Note Provider Name and Address Organization Details Recorded Time Product containin g penicilli n (product) medicatio n Not available Not available Not available 07/16/2019 [id number] SNOMED JUSTIN BURGESS , [facility] [address], [place], [address], [place] [facility] 13:55:37 [...] Day Smoker JUSTIN BURGESS NP [address] [place], [address], [place] [facility] 07/16/2019 14:00:08 How Much Tobacco Do You Smoke? 0.5 PPD [email or web address] Information not available 07/16/2019 Sex: Unknown Functional Status None recorded. Mental Status None recorded. Family History Relationship Description Onset Age of this Age Resolved Age Notes LastModified by Organization Details LastModified Time Father Diabetes mellitus [email or web address] Not available 14:00:24 Medical History Condition Response Diabetes Y Coronary Artery Disease N High Cholesterol N Pulmonary Embolism N Cancer N Hypertension Y Stroke N Asthma Y COPD N Depression Y Kidney Disease N Gynecological HistoryNo gynecological history recorded. Obstetrics History GPAL:G 0 P 0 0 0 0 Past Encounters Encounter ID Performer Location Encounter Start Date Encounter Closed Date Diagnosis/Indication Diagnosis SNOMED-CT Code Diagnosis ICD10 Code Diagnosis IMO Codes Diagnosis Note [id number] JUSTIN BURGESS NP [facility] [address] [place] [address] 07/16/2019 13:52:50 07/18/2019 12:42:21 Aphthous ulcer of mouth 685062036 K12.0 Health Concerns Section Related Observation LastModified by Organization Detai ls LastModified Time None Recorded Concern Status LastModified by Organization Details LastModified Time None Recorded Advance Directives Directive None Recorded Payers Insurance Date Sequence Insurance Name Policy Number Policy Ricci Covered Member ID Ricci Member ID Guarantor Name 07/18/2019 2 [place] [employer] [facility] Jannet Alvarez [id number] Jannet Alvarez 07/15/2019 1 *SELF PAY* Jannet Alvarez [id number] Jannet Malino 07/18/2019 1 [place] [facility] [address] [address] Jannet Alvarez [id number] Jannet Malino 07/19/2019 1 MEDICARE B-[place]: [facility] Jannet Alvarez [id number] Jannet Malino 07/18/2019 2 [place] [facility] [address] Jannet Alvarez [id number] Jannet Alvarez Notes Date Note Type Note Provider Name and Address Organization Details Recorded Time 07/16/2019 text/html This is a 53-year-old female that is new [facility] provider. She has a medical history significant for asthma, depression, diabetes, hypertension, bipolar, anxiety and obstructive sleep apnea for which she has a CPAP but does not use it. She contacted [facility] with concerns of an ulceration on her left lower lip that she felt was filled with past. She tells me prior to this wound being there she had been picking at her lips and pulling on skin. She says that this area drained some drainage yesterday but does not drink anything today. She has tried some qkrf-daz-axuinte numbing medications which she felt made her lips dry. She is now applying Vaseline. JUSTIN BURGESS NP [address] [place], [place] [address]var[place], [place], [address], [place] [facility] 07/16/2019 17:53:48 OBGyn Episode No OBEpisode recorded.
--- OUTSIDE RECORDS SUMMARY | 2025-03-11 19:27 | XMS_ITS | Clinical Summary ---
Author Organization [facility] Address [address] [place] [address] Phone Care Team Providers Care Electrical Design Engineer Name Role Phone Juliet Adhikari MD Primary Care Provider [phone] Allergies Active Allergy Reactions Criticality Noted Date [...] asso ciated with type 2 diabetes mellitus ([facility] V24, [facility] V28) 12/21/2024 Non-ST elevation SD (NSTEMI) ([facility] V24, [facility] V28) 11/02/2024 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 Diabetic nephropathy associa lilibeth with type 2 diabetes mellitus ([facility] V24, [facility] V28) 02/10/2021 Stage 2 chronic kidney disease 02/10/2021 Encounters Date Type Department Care Team Description 02/25/2025 Telephone Orthopedic Surgery - [place] [address] [place] [phone] Diony Neena M 02/13/2025 Telephone Orthopedic Surgery [facility] 250 [address] [facility] [address] [place] [phone] Neena Vora 02/12/2025 3:00 PM EDT Office Visit [facility] [address] [phone] Beth Robbins MD Arthritis of carpometacarpal (CMC) joint of right thumb (Primary Dx); Carpal tunnel syndrome of right wrist 01/16/2025 3:00 PM EDT Office Visit [facility] [address] [phone] Allyson Leon PA Right hand pain (Primary [...] 3:30 PM EST Office Visit Orthopedic Surgery [facility] [address] [phone] Beth Robbins MD [address] [phone] Scheduled Procedures Name Priority Associated Diagnoses Date/Ti [...] Date Diagnosed Date Autogenerated Problem 02/12/2025 Insurance [facility] MEDICAID JHON CARMICHAEL [id number] Care Teams Electrical Design Engineer Relationship Specialty Start Date End Date Juliet Adhikari MD [address] [place] [address] PCP - General Internal Medicine 02/12/25
== END ==
LOC: HO.HGI 14:29
PROVIDERS: PCP Internal Medicine; Visit Provider Internal Medicine
DX: R11.2 Nausea with vomiting, unspecified (principal); E11.65 Type 2 diabetes mellitus with hyperglycemia; Z79.4 Long term (current) use of insulin; I21.4 Non-ST elevation (NSTEMI) myocardial infarction; F14.10 Cocaine abuse, uncomplicated; Z80.0 Family history of malignant neoplasm of digestive organs
CPT/HCPCS: 99204; G2211

== ENCOUNTER → 2025-03-11 14:28 | Outpatient (BNVA) | payer OTHER, SELFPAY | PROVIDERS: PCP Internal Medicine; Visit Provider Internal Medicine | DX: E11.65 Type 2 diabetes mellitus with hyperglycemia (principal); I21.4 Non-ST elevation (NSTEMI) myocardial infarction; F14.10 Cocaine abuse, uncomplicated; Z80.0 Family history of malignant neoplasm of digestive organs; R11.2 Nausea with vomiting, unspecified | CPT/HCPCS: 99202 ==

== ENCOUNTER 2025-03-12 11:22 | Outpatient (AMB) | payer OTHER, SELFPAY ==
--- NOTE | 2025-03-12 11:37 | HO.NEPHOV_ITS ---
Vital Signs 03/12/25 11:38 Height 5 ft 4 in Weight 190 lb BMI 32.6 BP 78/52 L Blood Pressure Location Lt brachial Position Sitting Pulse 82 Pulse Source Pulse Oximeter Pulse Oximetry (%) 95 Oxygen Delivery Method Room Air Intake Visit Reasons: ENP: CKD STG 3, GFR 45-59 Pizza Delivery Driver Required: No Accompanied by: Self / Same As Patient Allergies penicillin V Allergy (Unknown, Verified 03/12/25 11:39) Hives Penicillins Allergy (Unknown, Verified 03/12/25 11:39) HIVES adhesive Allergy (Verified 03/12/25 11:39) Rash Medication List - Last Reconciled 03/12/25 by Pop Goodman MD amlodipine 5 mg PO DAILY aripiprazole 20 mg PO DAILY aspirin 81 mg PO DAILY PRN blood sugar diagnostic (FreeStyle Lite Strips) As directed four times a day blood-glucose sensor (FreeStyle Kelle 3 Sensor device) To be changed every 15 days. blood-glucose,collar stitcher,cont (FreeStyle Kelle 3 [place]) As directed to monitor blood sugar diclofenac sodium 1% 4 grams topical QID PRN duloxetine 20 mg PO BID gabapentin 600 mg PO TID glucagon 3 mg/actuation (Baqsimi) 3 mg intranasal ONCE ibuprofen 600 mg PO Q8H PRN insulin aspart U-100 (Novolog FlexPen U-100 Insulin aspart) 32 - 38 units (0.32 - 0.38 mL) subcut TIDWM insulin degludec (Tresiba FlexTouch U-200 insulin) 88 units (0.44 mL) subcut BEDTIME lidocaine 4% (Lidocaine Pain Relief) 1 patch See Protocol transdermal DAILY omeprazole 40 mg PO DAILY ondansetron 4 mg PO Q8H PRN peg 3350-electrolytes 236-22.74-6.74 -5.86 gram (Golytely) 240 mL PO Q10M rosuvastatin 40 mg PO DAILY HPI Comments Details: The patient is a 59 year old individual presenting for a nephrology consultation after being referred by Dr. Mae due to abnormal blood work indicating a kidney problem. A urine test last month revealed protein in the urine, and the patient has noticed bubbly urine. The patient reports no trouble urinating, no hematuria, and no history of kidney stones. Recent blood tests also indicated a liver issue, and an abdominal ultrasound is scheduled for Damaris. The patient has a history of type 2 diabetes for 18 years and has been on insulin since the diagnosis. The patient also has chronic neuropathy, for which gabapentin is prescribed. The patient recently learned the correct timing for insulin administration, having previously taken it after meals instead of before. For hypertension, the patient has been on amlodipine 5 mg for a while but has not taken it for approximately a week and a half. Today's blood pressure was noted to be low, which the patient states is unusual. The patient has no history of taking lisinopril or losartan. Past medical history is significant for a heart attack that required stent placement after an emergency services call. Past surgical history includes partial hysterectomy, cholecystectomy, and tonsillectomy. Regarding substance use, the patient smokes approximately half a pack of cigarettes per day and reports occasional cocaine use which started last year. The patient denies alcohol use. The patient takes Motrin as needed for leg and back pain, about once a week. The patient admits to not following a strict diet in the past but has been trying to adhere to a new diabetes plan for the last two months. The patient reports drinking about a gallon and a half of water daily, often with kiowa tribe and mattie. 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 DM2 (diabetes mellitus, type 2) Depressed Anxiety Bipolar 1 disorder Diabetes 1.5, managed as type 1 Surgical History H/O adenoidectomy History of tubal ligation History of cholecystectomy History of partial hysterectomy History of dental surgery Social History Household Members: Children Household Members Other:: daughter Housing: Apartment Do you presently have visiting nurse or other home services: No Alcohol intake: current Alcohol intake frequency: holidays/special occasions only Alcohol type: wine Patient Tobacco Use Status: Current everyday Tobacco user Tobacco use type: Cigarette Cigarettes Per Day: 20 e-Cigarette/Vaping Use: Never Used Second Hand Smoke Exposure: Yes Substance Use Type: Marijuana service: No Current occupational status: disabled Review of Systems Const Denies fever(s) and Denies weight loss Card Denies chest pain Resp Denies cough and Denies hemoptysis GI Denies abdominal pain, Denies diarrhea and Denies nausea Musc Denies back pain Neuro Denies focal weakness Physical Exam Vital Signs: Last Vital Signs Pulse 82 03/12/25 11:38 BP 78/52 L 03/12/25 11:38 Pulse Ox 95 03/12/25 11:38 Oxygen Delivery Method Room Air 03/12/25 11:38 BMI result Body Mass Index 32.6 Comfortable Neck supple no JVD. Lungs entry equal no rales. Heart S1-S2 heard no gallop or rub. Abdomen soft nontender. Neuro alert awake oriented. No asterixis. Extremities no edema. Results Reviewed Nephrology Results: Hgb, (12.0-16.0) 13.5 g/dl 03/07/25 WBC, (4.8-10.8) 9.5 X10*3/uL 03/07/25 Plt Count, (160-400) 173 X10*3/uL 03/07/25 Sodium, (135-145) 134 mmol/L L 03/07/25 Potassium, (3.3-5.1) 4.5 mmol/L 03/07/25 Chloride, (96-108) 108 mmol/L 03/07/25 Carbon Dioxide, (22-29) 19 mmol/L L 03/07/25 BUN, (9-16) 27 mg/dL H 03/07/25 Creatinine, (0.5-1.4) 1.04 mg/dL 03/07/25 Calcium, (8.4-10.2) 10.3 mg/dL H 03/07/25 Urine Protein, (Neg-Trace) 100 (2+) mg/dL H 01/09/25 Urine Creatinine 148.17 mg/dL 02/12/25 Renal US 02/05/20 Assessment & Plan Assessment & Plan (1) Stage 2 chronic kidney disease: Code(s): N18.2 - Chronic kidney disease, stage 2 (mild) Category: Medical Plan 1. Chronic Kidney Disease With Proteinuria - Recent urine studies showed proteinuria, indicating kidney stress, which is likely secondary to long-standing diabetes. - A kidney-protective medication like losartan is indicated to decrease proteinuria but will be deferred at this time due to current hypotension. - The patient was counseled that NSAIDs like Motrin and cocaine use can also adversely affect kidney function. - Plan to repeat blood and urine tests before the next visit. - An abdominal ultrasound is scheduled for April. - Follow up in April to review test results and consider initiating losartan. 2. Hypertension And Hypotension - The patient's blood pressure today was 80/40 mmHg, which is low and can impair kidney perfusion. - The patient has been non-adherent with amlodipine 5 mg for over a week. - Due to the significant hypotension, amlodipine will be discontinued. - The patient will monitor blood pressure at home. - The addition of losartan will be considered at the follow-up visit once blood pressure has stabilized, as it also lowers blood pressure. 3. Type 2 Diabetes Mellitus - The patient is encouraged to continue efforts to improve glycemic control by following the new diabetes plan, including proper diet and correct insulin timing. - The importance of keeping blood sugar levels down to protect the kidneys was emphasized. - Reassurance was provided that the patient is not close to needing dialysis and that current measures can prevent progression. 4 Orders: Orders Basic Metabolic Panel 6 Weeks Pop Goodman MD N18.2 - Chronic kidney disease, stage 2 (mild), R80.9 - Proteinuria, unspecified Creatinine Urine 6 Weeks Pop Goodman MD N18.2 - Chronic kidney disease, stage 2 (mild), R80.9 - Proteinuria, unspecified Total Protein Urine Random 6 Weeks Pop Goodman MD N18.2 - Chronic kidney disease, stage 2 (mild), R80.9 - Proteinuria, unspecified UA and rflx microscopic 6 Weeks Pop Goodman MD N18.2 - Chronic kidney disease, stage 2 (mild), R80.9 - Proteinuria, unspecified Medications: Changed From aspirin 81 mg PO DAILY 1 tab 0RF To aspirin 81 mg PO DAILY PRN Cara Diallo MD Discontinued ibuprofen Discontinued Reason: Doctor's Order 600 mg PO Q8H PRN 14 tabs 0RF pain Coding Level of Care Code New Pt Level 4 (53254) Diagnoses Stage 2 chronic kidney disease N18.2
[2025-03-12 11:38] VITALS: BP 78/52; PULSE 82; O2SAT 95; BMI 32.6
--- OUTSIDE RECORDS SUMMARY | 2025-03-12 15:05 | XMS_ITS | Encounter Summary ---
Author Organization [employer] Address [address] [place] [address] 7 [place] [address] Care Team Providers Care Mail Courier Name Role Phone Julite Adhikari MD Primary Care Provider [phone] Reason for Visit * Reason Comments Med Refill Encounter Details Date Type Department Care Team ([facility] Contact Info) Description 01/09/2024 Refill [facility] CH[facility] MED & PEDS [address] [place], [place] [phone] Juliet Adhikari MD [address] [place], [place] [phone] Type 2 diabetes mellitus without complications (CMS/HCC) [...] documented as of this encounter Care Teams Mail Courier Relationship Specialty Start Date End Date Juliet Adhikari MD [address] [place] [address] PCP - General Internal Medicine 02/15/12 documented as of this encounter
--- OUTSIDE RECORDS SUMMARY | 2025-03-12 15:05 | XMS_ITS | Encounter Summary ---
Author Organization [employer] Address [address] [facility] 7t [place] [address] Care Team Providers Care Motor Grader Rough Grade Name Role Phone Juliet Adhikari MD Primary Care Provider [phone] Encounter Details Date Type Department Care Team ([facility] st Contact Info) Description 11/02/2022 Telephone [facility] CHC ADULT DENTAL [address] [place] [address] Jovan Soler, DMD [address] [place] [address] Social History Tobacco Use Types Packs/Day Years [...] documented as of this encounter Care Teams Motor Grader Rough Grade Relationship Specialty Start Date End Date Juliet Adhikari MD [address] [place] [address] PCP - General Internal Medicine 02/15/12 documented as of this encounter
--- OUTSIDE RECORDS SUMMARY | 2025-03-12 15:05 | XMS_ITS | Encounter Summary ---
Author Organization [employer] Address [address] [place] [address] Care Team Providers Care Drop Clipper Name Role Phone Juliet Adhikari MD Primary Care Provider [phone] Reason for Visit * Reason Comments Med Refill Encounter Details Date Type Department Care Team ([facility] st Contact Info) Description 05/05/2023 Refill [facility] MED & PEDS [address] [place], [place] [phone] Juliet Adhikari MD [address] [place], [place] [phone] Type 2 diabetes mellitus with hyperglycemia (CMS/HCC) [...] documented as of this encounter Care Teams Drop Clipper Relationship Specialty Start Date End Date Juliet Adhiakri MD [address] [place] [address] PCP - General Internal Medicine 02/15/12 documented as of this encounter
--- OUTSIDE RECORDS SUMMARY | 2025-03-12 15:05 | XMS_ITS | Encounter Summary ---
Author Organization [employer] Address [address] [place] [address] [address] [place] [address] Care Team Providers Care Amusement Park Worker Name Role Phone Juliet Adhikari MD Primary Care Provider [phone] Reason for Visit * Reason Onset Date Comments Nurse Triage 12/22/2023 Encounter Details Date Type Department Care Team ([facility] st Contact Info) Description 12/22/2023 Telephone [facility] CHC MED & PEDS [address] [place], [place] [phone] Juliet Adhikari MD [address] [place] [address] Nurse Triage Social History Tobacco Use Types [...] Has appt. At end of month with [facility] but pt. States she [...] her through the month until she see's [facility]. Please advise and have [...] documented as of this encounter Care Teams Amusement Park Worker Relationship Specialty Start Date End Date Juliet Adhikari MD [address] [place] [address] PCP - General Internal Medicine 02/15/12 documented as of this encounter
--- OUTSIDE RECORDS SUMMARY | 2025-03-12 15:05 | XMS_ITS | Encounter Summary ---
Author Organization [employer] Address [address] [facility] [address] [place] [address] Care Team Providers Care Occupational Therapy Technician Name Role Phone Juliet Adhikari MD Primary Care Provider [phone] Reason for Visit * Reason Onset Date Comments ER Follow-up 11/16/2023 Encounter Details Date Type Department Care Team ([facility] st Contact Info) Description 11/16/2023 Telephone [facility] MEDICINE [address] [place] [address] Juliet Adhikari MD [address] [place] [address] ER Follow-up Social History Tobacco Use Types [...] 11/16/2023 11:37 AM EDT Triage call with [employer] Platemaker ID [id number] Pt was seen in [facility] ED 11/12/23 (report is on the [...] as of this encounter Care Teams Occupational Therapy Technician Relationship Specialty Start Date End Date Juliet Adhikari MD [address] [place] [address] PCP - General Internal Medicine 02/15/12 documented as of this encounter
--- OUTSIDE RECORDS SUMMARY | 2025-03-12 15:05 | XMS_ITS | Encounter Summary ---
Author Organization [employer] Address [address] [place] [address] Care Team Providers Care Soccer Player Name Role Phone Juliet Adhikari MD Primary Care Provider [phone] Reason for Referral * Consultation (Routine) - Closed Specialty Diagnoses / Procedures Referred By Hannah rey Referred To Contact Occupational Therapy Diagnoses Lumbar radiculopathy Chronic left-sided low back pain with left-sided sciatica Juliet Adhikari MD [address] [place] [address] Phone: tel: fax: [facility] Physical Therapy [address] [place] [address] Phone: tel: fax: Referral ID Status Reason Start Date Expiration Date V isits Requested Visits Authorized [id number] Closed Specialty Services Required 07/18/2024 07/18/2025 1 1 * Consultation (Routine) - Closed Specialty Diagnoses / Procedures Referred By Hannah rey Referred To Contact Physical Therapy Diagnoses Lumbar radiculopathy Chronic left-sided low back pain with left-sided sciatica Juleit Adhikari MD [address] [place] [address] Phone: tel: fax: [facility] Physical Therapy [address] [place] [address] Phone: tel: fax: Referral ID Status Reason Start Date Expiration Date V isits Requested Visits Authorized [id number] Closed Specialty Services Required 07/18/2024 07/18/2025 1 1 Encounter Details Date Type Department Care Team ([facility] st Contact Info) Description 07/18/2024 Orders Only [facility] CHC MED & PEDS [address] [place] [address] Juliet Adhikari MD [address] [place] [address] Lumbar radiculopathy (Primary Dx); Chronic left-sided low [...] documented as of this encounter Care Teams Soccer Player Relationship Specialty Start Date End Date Juliet Adhikari MD [address] [place] [address] PCP - General Internal Medicine 02/15/12 documented as of this encounter
--- OUTSIDE RECORDS SUMMARY | 2025-03-12 15:05 | XMS_ITS | Encounter Summary ---
Author Organization [facility] [employer] Address [address] [place] [address] [place] [address] Care Team Providers Care Garage Door Technician Name Role Phone Juliet Adhikari MD Primary Care Provider +1- [phone] Encounter Details Date Type Department Care Team ([facility] st Contact Info) Description 03/15/2023 Orders Only [facility] CHC MED & PEDS [address] [place], [place] [phone] Juliet Adhikari MD [address] [place], [place] [phone] Acute vaginitis (Primary Dx) Social History Tobacco [...] documented as of this encounter Care Teams Garage Door Technician Relationship Specialty Start Date End Date Juliet Adhikari MD [address] [place] [address] [address] PCP - General Internal Medicine 02/15/12 documented as of this encounter
--- OUTSIDE RECORDS SUMMARY | 2025-03-12 15:05 | XMS_ITS | Encounter Summary ---
Author Organization [employer] Address [address] [place] [address] 7 [place] [address] Care Team Providers Care Charter Driver Name Role Phone Juliet Adhikari MD Primary Care Provider [phone] Reason for Referral * Consultation (Routine) - Authorized Specialty Diagnoses / Procedures Referred By Hannah rey Referred To Contact Nephrology Diagnoses Decreased GFR Hypercalcemia CKD stage 3a, GFR 45-59 ml/min ([facility]/HCC) ([facility]) Juliet Adhikari MD [address] [place] [address] Phone: tel: fax: [facility] [address], [address] [place] [address] Phone: tel: fax: Referral ID Status Reason Start Date Expiration Date Visits Requested Visits Authorized [id number] Authorized Specialty Services Required 02/12/2026 1 1 * Imaging (Routine) - Authorized Specialty Diagnoses / Procedures Referred By Hannah t Referred To Contact Radiology Diagnoses Elevated alkaline phosphatase level Decreased GFR Procedures US Abdomen Complete Juliet Adhikari MD [address] [place] [address] Phone: tel: fax: [facility] [address] [place] [phone] Phone: tel: fax: Referral ID Status Reason Start Date Expiration Date V isits Requested Visits Authorized [id number] Authorized 02/12/2025 02/12/2026 1 1 Encounter Details Date Type Department Care Team (Late st Contact Info) Description 02/12/2025 Orders Only [facility] CHC MED & PEDS 505 [place] [address] Juliet Adhikari MD [address] [place] [address] Elevated alkaline phosphatase level (Primary Dx); Decreased [...] Hypercalcemia CKD stage 3a, GFR 45-59 ml/min ([facility]/HCC) ([facility]) Expected: 02/12/2025, Expires: 02/12/2026 Vitamin D, 25-Hydroxy, Total, Immunoassay Lab Routine Decreased GFR Hypercalcemia CKD stage 3a, GFR 45-59 ml/min (CMS/HCC) ([facility]) Expected: 02/12/2025 (Approximate), Expires: 02/12/2026 Scheduled Referrals Name Type Priority Associated Diagnoses Order Schedule Referral to Nephrology Outpatient Referral Routine Decreased GFR Hypercalcemia CKD stage 3a, GFR 45-59 ml/min (CMS/HCC) ([facility]) Expected: 02/12/2025 (Approximate), Expires: 02/12/2026 documented as of this encounter Visit Diagnoses Diagnosis Elevated alkaline phosphatase level- Primary Decreased GFR Hypercalcemia CKD stage 3a, GFR 45-59 ml/min (CMS/HCC) ([facility]) Hypercholesterolemia Pure hypercholesterolemia documented in this encounter Additional Health Concerns Assessment Noted Time PHQ-9 Depression Total Score: 20 025 5:21 PM EDT documented as of this encounter Care Teams Charter Driver Relationship Specialty Start Date End Date Juliet Adhikari MD [address] [place] [address] PCP - General Internal Medicine 02/15/12 documented as of this encounter
--- OUTSIDE RECORDS SUMMARY | 2025-03-12 15:05 | XMS_ITS | Encounter Summary ---
Author Organization [employer] Address [address] [place] [address] [place] [address] Care Team Providers Care Book Binder Name Role Phone Juliet Adhikari MD Primary Care Provider [phone]- [phone] Reason for Visit * Reason Onset Date Comments Results 02/12/2025 Encounter Details Date Type Department Care Team (Latest Contact Info) Description 02/12/2025 Results Follow-Up [facility] CHC MED & PEDS 505 [place], [place] [phone] Juliet Adhikari MD 505 [place] [address] POCT Glucose, POCT Hgb A1c, Comprehensive Metabolic [...] Pt states prefers to use [facility] [address] [facility]. Pt stated also has new cell phone number [phone] and requested to have phone number added [...] documented as of this encounter Care Teams Book Binder Relationship Specialty Start Date End Date Juliet Adhikari MD [address] [place] [address] PCP - General Internal Medicine 02/15/12 documented as of this encounter
--- OUTSIDE RECORDS SUMMARY | 2025-03-12 15:05 | XMS_ITS | Encounter Summary ---
Author Organization [employer] Address [address] [facility] [address] [address] Care Team Providers Care Remnants Cutter Name Role Phone Juliet Adhikari MD Primary Care Provider [phone]- [phone] Reason for Referral * Consultation (Routine) - Closed Specialty Diagnoses / Procedures Referred By Hannah rey Referred To Contact Pain Medicine Diagnoses Chronic left-sided low back pain with left-sided sciatica Lumbar radiculopathy Spinal stenosis of lumbar region without neurogenic claudication Juliet Adhikari MD [address] [place] [address] Phone: tel: fax: Daniel Cash MD [address] [place] [address] [address] [place] [address] Phone: tel: fax: Referral ID Status Reason Start Date Expiration Date V isits Requested Visits Authorized [id number] Closed Specialty Services Required 05/04/2024 05/04/2025 1 1 Encounter Details Date Type Department Care Team ([facility] st Contact Info) Description 05/04/2024 Orders Only [facility] CHC MED & PEDS 505 [place] [address] Juliet Adhikari MD 505 [place] [address] Chronic left-sided low back pain with left-sided [...] documented as of this encounter Care Teams Remnants Cutter Relationship Specialty Start Date End Date Juliet Adhikari MD [address] [place] [address] PCP - General Internal Medicine 02/15/12 documented as of this encounter
--- OUTSIDE RECORDS SUMMARY | 2025-03-12 15:05 | XMS_ITS | Encounter Summary ---
Author Organization [employer] Address [address] [place] [address] 7 [place] [address] Care Team Providers Care Glue Jointer Operator Name Role Phone Juliet Adhikari MD Primary Care Provider [phone] Reason for Visit * Reason Comments Med Refill Encounter Details Date Type Department Care Team ([facility] Contact Info) Description 01/02/2024 Refill [facility] CHC MED & PEDS 505 [place], [place] [phone] Juliet Adhikari MD 505 [place], [place] [phone] Type 2 diabetes mellitus without complications (CMS/HCC) [...] documented as of this encounter Care Teams Glue Jointer Operator Relationship Specialty Start Date End Date Juliet Adhikari MD [address] [place] [address] PCP - General Internal Medicine 02/15/12 documented as of this encounter
--- OUTSIDE RECORDS SUMMARY | 2025-03-12 15:05 | XMS_ITS | Encounter Summary ---
Author Organization [employer] Address 75 [facility] 7 [place] [address] Care Team Providers Care Fire Official Name Role Phone Juliet Adhikari MD Primary Care Provider [phone] Encounter Details Date Type Department Care Team ([facility] st Contact Info) Description 12/23/2023 Orders Only [facility] CHC MED & PEDS 505 [place], [place] [phone] Juliet Adhikari MD 505 [place], [place] [phone] Lumbar radiculopathy (Primary Dx) Social History Tobacco [...] documented as of this encounter Care Teams Fire Official Relationship Specialty Start Date End Date Juliet Adhikari MD [address] [place] [address] PCP - General Internal Medicine 02/15/12 documented as of this encounter
--- OUTSIDE RECORDS SUMMARY | 2025-03-12 15:05 | XMS_ITS | Encounter Summary ---
Author Organization [employer] Address [address] [place] [address] Care Team Providers Care Incinerator Attendant Name Role Phone Juliet Adhikari MD Primary Care Provider [phone] Reason for Visit * Reason Onset Date Comments Nurse Triage 08/29/2023 Encounter Details Date Type Department Care Team ([facility] st Contact Info) Description 08/29/2023 Telephone [facility] CHC MED & PEDS 505 [place], [place] [phone] Juliet Adhikari MD 505 [place], [place] [phone] Nurse Triage Social History Tobacco Use Types [...] insulin. Pt. Did have to go to [place] for a month at the last minute dueto a in the family Her father. Now pt. Got in from [place] last night and wants to get her [...] documented as of this encounter Care Teams Incinerator Attendant Relationship Specialty Start Date End Date Juliet Adhikari MD [address] [place] [address] PCP - General Internal Medicine 02/15/12 documented as of this encounter
--- OUTSIDE RECORDS SUMMARY | 2025-03-12 15:05 | XMS_ITS | Encounter Summary ---
Author Organization [employer] Address [address] [place] [address] Care Team Providers Care Buff Wheel Fabricator Name Role Phone Juliet Adhikari MD Primary Care Provider [phone]- [phone] Reason for Visit * Reason Comments Med Refill Encounter Details Date Type Department Care Team ([facility] Contact Info) Description 01/08/2023 Refill [facility] CHC MED & PEDS 505 [place], [place] [phone] Juliet Adhikari MD 505 [place], [place] [phone] Social History Tobacco Use Types Packs/Day Years [...] documented as of this encounter Care Teams Buff Wheel Fabricator Relationship Specialty Start Date End Date Juliet Adhikari MD 505 [place] [address] PCP - General Internal Medicine 02/15/12 documented as of this encounter
--- OUTSIDE RECORDS SUMMARY | 2025-03-12 15:05 | XMS_ITS | Encounter Summary ---
Author Organization [employer] Address 75 [facility] 7 [place] [address] Care Team Providers Care Bulb Assembler Name Role Phone Juliet Adhikari MD Primary Care Provider [phone]- [phone] Reason for Visit * Reason Onset Date Comments Referral 07/29/2023 Encounter Details Date Type Department Care Team ([facility] st Contact Info) Description 07/29/2023 Telephone [facility] MEDICINE [address] [place] [address] Juliet Adhikari MD 505 [place], [place] [phone] Referral Social History Tobacco Use Types Packs/Day [...] in the family. Any questions contact Jennifer [phone] documented in this encounter Plan of Treatment Not on file documented as of this encounter Visit Diagnoses Not on filedocumented in this encounter Additional Health Concerns Assessment Noted Time PHQ-9 Depression Total Score: 12 023 9:26 AM EDT documented as of this encounter Care Teams Bulb Assembler Relationship Specialty Start Date End Date Juliet Adhikari MD [address] [place] [address] PCP - General Internal Medicine 02/15/12 documented as of this encounter
--- OUTSIDE RECORDS SUMMARY | 2025-03-12 15:05 | XMS_ITS | Encounter Summary ---
Author Organization [employer] Address 75 [facility] 7 [place] [address] Care Team Providers Care Instrumentation Tech Name Role Phone Juliet Adhikari MD Primary Care Provider [phone] Reason for Visit * Reason Onset Date Comments Med Refill Appointment 01/08/2023 [facility] Encounter Details Date Type Department Care Team ([facility] st Contact Info) Description 01/08/2023 Refill [facility] MEDICINE 230 [place] [address] Roman Cummings FNP Social History Tobacco Use [...] pt regarding her appt for today as [id number]. pt request to cancel and re-schedule, Pt r/s for 02/10/23. documented in this encounter Plan of Treatment Not on file documented as of this encounter Visit Diagnoses Not on filedocumented in this encounter Additional Health Concerns Assessment Noted Time PHQ-9 Depression Total Score: 12 023 9:26 AM EDT documented as of this encounter Care Teams Instrumentation Tech Relationship Specialty Start Date End Date Juliet Adhikari MD [address] [place] [address] PCP - General Internal Medicine 02/15/12 documented as of this encounter
--- OUTSIDE RECORDS SUMMARY | 2025-03-12 15:05 | XMS_ITS | Encounter Summary ---
Author Organization [employer] Address 75 [facility] 7 [place] [address] Care Team Providers Care Professional Sports Scout Name Role Phone Juliet Adhikari MD Primary Care Provider [phone] Reason for Visit * Reason Onset Date Comments Referral 11/01/2023 Encounter Details Date Type Department Care Team ([facility] st Contact Info) Description 11/01/2023 Telephone [facility] MEDICINE 230 [place] [address] Juliet Adhikari MD 505 [place], [place] [phone] Referral Social History Tobacco Use Types Packs/Day [...] documented as of this encounter Care Teams Professional Sports Scout Relationship Specialty Start Date End Date Juliet Adhikari MD [address] [place] [address] PCP - General Internal Medicine 02/15/12 documented as of this encounter
--- OUTSIDE RECORDS SUMMARY | 2025-03-12 15:05 | XMS_ITS | Encounter Summary ---
Author Organization [employer] Address 75 [facility] 7 [place] [address] Care Team Providers Care Vending Machine Refiller Name Role Phone Juliet Adhikari MD Primary Care Provider +1 [phone] Encounter Details Date Type Department Care Team (Late st Contact Info) Description 08/02/2023 Orders Only [facility] 230 [place] [address] Provider, MD Julee Social History Tobacco Use [...] PM EDT Narrative 09/01/2023 3:51 PM EDT [address] [address] XRay Report Signed Patient: Jannet Alvarez MR#: [id number] : 1965 Acct:[id number] Age/Sex: 57 / F ADM Date: 09/01/23 Loc: HO.ED Attending Dr: Ordering Physician: Alexei Iniguez MD Date of Service: 09/01/23 Procedure(s): XR chest 1V Accession Number(s): [id number] cc: Juliet Adhikari MD; Alexei Iniguez MD [...] in OV> 09/01/23 1547 DD/ 1420 TD/TT: Cigar Head Puncher: SS Procedure Note Donotuseinterpreter, Image - 09/01/[address] [address] XRay Report Signed Patient: Jannet AlvarezMR#: [id number] : 1965Acct:[id number] Age/Sex: 57 / FADM Date: 09/01/23 Loc: HO.ED Attending Dr: Ordering Physician: Alexei Iniguez MD Date of Service: 09/01/23 Procedure(s): XR chest 1V Accession Number(s): [id number] cc: Juliet Adhikari MD; Alexei Iniguez MD [...] in OV> 09/01/23 1547 DD/ 1420 TD/TT: Cigar Head Puncher: BERYL [facility] External Provider IMG XR PROCEDURES Final Result * Colonoscopy (02/24/2023 3:37 PM EST) Anatomical Region Laterality Modality Endoscopy Historical Provider ENDOSCOPY PROCEDURE ORDER MAINE Final Result documented in this encounter Visit Diagnoses Not on filedocumented in this encounter Additional Health Concerns Assessment Noted Time PHQ-9 Depression Total Score: 12 023 9:26 AM EDT documented as of this encounter Care Teams Vending Machine Refiller Relationship Specialty Start Date End Date Juliet Adhikari MD [address] [place] [address] PCP - General Internal Medicine 02/15/12 documented as of this encounter
--- OUTSIDE RECORDS SUMMARY | 2025-03-12 15:05 | XMS_ITS | Encounter Summary ---
Author Organization [employer] Address 75 [facility] 7t [place] [address] Care Team Providers Care Smooth Stucco Resurfacer Name Role Phone Juliet Adhikari MD Primary Care Provider [phone] Encounter Details Date Type Department Care Team [...] Whole Blood 210(H) 60 - 115 mg/dL [facility] Comment:METER #: [id number] 03/07/2025 8:03 PM EST 03/07/2025 8:09 PM EST us Generic External Data Provider LAB BLOOD ORDERAB LES Final Result [facility] [address] [place] [address] [phone] * (ABNORMAL) Glucose, Whole Blood (03/07/2025 6:56 PM EST) Glucose, Whole Blood 301(H) 60 - 115 mg/dL [facility] Comment:METER #: [id number] 8 03/07/2025 6:56 PM EST 03/07/2025 8:09 PM EST us Generic External Data Provider LAB BLOOD ORDERAB LES Final Result Performing Organization Address City/[facility]/ZIP Co de Phone Number [facility] [address] [place] [phone] documented in this encounter Visit Diagnoses [...] documented as of this encounter Care Teams Smooth Stucco Resurfacer Relationship Specialty Start Date End Date Juliet Adhikari MD [address] [place] [address] PCP - General Internal Medicine 02/15/12 documented as of this encounter
--- OUTSIDE RECORDS SUMMARY | 2025-03-12 15:05 | XMS_ITS | Encounter Summary ---
Author Organization [employer] Address 75 [facility] 7 [place] [address] Care Team Providers Care Vegetable Harvest Worker Name Role Phone Juliet Adhikari MD Primary Care Provider +1- [phone] Encounter Details Date Type Department Care Team ([facility] st Contact Info) Description 02/04/2023 Abstract [facility] MEDICINE [address] [place] [address] Juliet Adhikari MD [address] [place] [address] Social History Tobacco Use Types Packs/Day Years [...] documented as of this encounter Care Teams Vegetable Harvest Worker Relationship Specialty Start Date End Date Juliet Adhikari MD [address] [place] [address] PCP - General Internal Medicine 02/15/12 documented as of this encounter
--- OUTSIDE RECORDS SUMMARY | 2025-03-12 15:06 | XMS_ITS | Clinical Summary ---
Author Organization [employer] Address [address] [facility] [address] [place] [address] Care Team Providers Care Casing Man Name Role Phone Juliet Adhikari MD Primary Care Provider [phone] Allergies Active Allergy Reactions Criticality Noted Date [...] 60 capsule 025 2025 Active Continuous Glucose Technical Training Coordinator ([employer] [place]) deviceIndication s:Type 2 diabetes mellitus with diabetic polyneuropathy, with long-term current use of insulin ([facility]) 1 each Once per day. Use as [...] wear daily 1 each Active Continuous Glucose Technical Training Coordinator ([employer] [place]) deviceIndication s:Uncontrolled type 2 diabetes mellitus with [...] type 2 diabetes mellitus 12/21/2024 Non-ST elevation CO (NSTEMI) ([facility]) Spinal stenosis of lumbar re gion without [...] retiring, patient will be transferred to new [facility] psychiatric prescriber. Patient is aware that appointments will be via televisit, and that the provider will not be an employee of [facility]. She gives verbal permission to [...] DEPARTMENT Provider, Generic External Data 02/26/2025 Telephone [facility] [address] [place] [phone] Juliet Adhikari MD Appointment Request 02/12/2025 Results Follow-Up [facility] [address] [place] [address] Juliet Adhikari MD POCT Glucose, POCT Hgb A1c, Comprehensive Metabolic Panel, Additional followed-up results: 2 02/12/2025 Orders Only [facility] [address] [place] [address] Juliet Adhikari MD Elevated alkaline phosphatase level (Primary Dx); Decreased GFR; Hypercalcemia; CKD stage 3a, GFR 45-59 ml/min (CMS/HCC) (HCC); Hypercholesterolemia 02/12/2025 Orders Only GENERIC EXTERNAL DATA DEPARTMENT Provider, Generic External Data 01/16/2025 Telephone [facility] [address] [place] [address] Juliet Adhikari MD Appointment Request 01/09/2025 Orders Only [facility] External Provider, [facility] 01/04/2025 Orders Only GENERIC EXTERNAL DATA DEPARTMENT Provider, Generic External Data 12/21/2024 1:30 PM EDT Office Visit [facility] [address] [place] [address] Juliet Adhikari MD Paresthesias (Primary Dx); Diabetic polyneuropathy associated with type 2 diabetes mellitus (CMS/HCC); Carpal tunnel syndrome of right wrist; Uncontrolled type 2 diabetes mellitus with hyperglycemia (CMS/HCC); Mood disorder (CMS/HCC); Dietary counseling; Exercise counseling; Class 1 obesity due to excess calories with serious comorbidity and body mass index (BMI) of 32.0 to 32.9 in adult 12/21/2024 Refill [facility] [address] [place] [address] Juliet Adhikari MD Carpal tunnel syndrome of right wrist 12/21/2024 Travel 12/20/2024 Telephone [facility] [address] [place] [phone] Juliet Adhikari MD Nurse Triage from Last [...] Patient has chronic kidney disease No Mei Handy, JOVAN Help patients manage [...] Whole Blood 210(H) 60 - 115 mg/dL [facility] Comment:METER #: [id number] 03/07/2025 8:03 PM EST 03/07/2025 8:09 PM EST us Generic External Data Provider LAB BLOOD ORDERAB LES Final Result [facility] [address] [place] [phone] * (ABNORMAL) Albumin, Random Urine W/Creatinine (02/12/2025 10:35 AM EDT) Creatinine, Urine 148.17 mg/dL [facility] Microalbumin Urine 788.0 mg/L [facility] Microalbum Creatinine Ratio Ur 531.8(H) <30 ug/mg cr [facility] Comment:Albumin/Creatinine R atio Reference Ranges: Normal: < 30 ug/mg creatinine Microalbuminuria: 30 - 300 ug/mg creatinineClinical Albuminuria: > 300 ug/mg creatinine 02/12/2025 10:3 5 AM EDT 02/12/2025 1:54 PM EDT us Generic External Data Provider LAB URINE ORDERAB LES Final Result Performing Organization Address City/[facility]/ZIP Co de Phone Number [facility] [address] [place] [phone] * Vitamin B12/Folate, Serum Panel (02/12/2025 10:30 AM EDT) Vitamin B12 673 200 - 900 pg/mL [facility] Comment:NORMAL 200-900 PG/M L INDETERMINATE 160-199 PG/ML DEFICIENT < 160 PG/ML Folate 5.4 > or = 4.0 ng/mL [facility] Comment:Reference Values:> o r = [...] BLOOD ORDERABLES Final Result Performing Organization Address [facility]/ZIP Co de Phone Number [facility] [address] [place] [phone] * Vitamin B6 (02/12/2025 10:30 AM EDT) Vitamin B6 2.5 2.1 - 21.7 ng/mL [facility] Comment:Vitamin supplementat ion within 24 hours prior toblood draw may affect the accuracy of the results.This test was developed and its analytical performancecharacteristics have been determined by [employer] [place], [place]. It hasnot been cleared or approved by the U.S. Food and DrugAdministration. This assay has been validated pursuantto the CLIA regulations and is used for clinicalpurposes.THIS TEST WAS PERFORMED AT:[id number] [place] [address]ODSFZMYCHRISTIE DUMAS MD,PHD Blood Venous blood specimen / Unknown 02/12/2025 10:30 AM EDT 02/12/2025 2:09 PM EDT Juliet Adhikari MD LAB BLOOD ORDERABLES Final Result Performing Organization Address [facility] Co de Phone Number [facility] [address] [place] [phone] * Magnesium (02/12/2025 10:30 AM EDT) Pathologist [facility] [place] Magnesium 2.1 1.6 - 2.6 mg/dL [facility] Blood Venous blood specimen / Unknown 02/12/2025 10:30 AM EDT 02/12/2025 2:09 PM EDT Juliet Adhikari MD LAB BLOOD ORDERABLES Final Result Performing Organization Address [facility] Co de Phone Number [facility] [address] [place] [phone] * (ABNORMAL) Lipid Panel, Standard (02/12/2025 10:30 AM EDT) Triglycerides 321(H) <150 mg/dL [facility] Comment:Desirable Triglyceri de: less than 150 mg/dLBorderline High Triglyceride 150-199 mg/dLHigh Triglyceride: 200-499 mg/dLVery High Triglyceride: greater than or equal to 5OO mg/dL Cholesterol 260(H) <200 mg/dL [facility] Comment:Desirable Cholestero l: less than 200 mg/dLBorderline High Cholesterol: 200-239 mg/dLHigh Cholesterol: greater than 239 mg/dL LDL Cholesterol Calculated 158(H) <100 mg/dL [facility] Comment:Desirable LDL: less than 100 mg/dLNear Optimal/Above Optimal LDL: 110- 129 mg/dLBorderline High LDL: 130-159 mg/dLHigh LDL: 160-189 mg/dLVery High LDL: greater than or equal to 190 mg/dL HDL Cholesterol 38(L) >40 mg/dL [facility] Comment:Desirable HDL: great er than 40 mg/dL Note: This HDL assay may give artificially low results in patients with liver disease. 02/12/2025 10:3 0 AM EDT 02/12/2025 2:09 PM EDT us Generic External Data Provider LAB BLOOD ORDERAB LES Final Result [facility] [address] [place] [phone] * (ABNORMAL) Comprehensive Metabolic Panel (02/12/2025 10:30 AM EDT) Sodium 140 135 - 145 mmol/L [facility] Potassium 4.4 3.3 - 5.1 mmol/L [facility] Chloride 110(H) 96 - 108 mmol/L [facility] Carbon Dioxide 23 22 - 29 mmol/L [facility] Anion Gap 11(L) 12 - 20 [facility] Urea Nitrogen (BUN) 20(H) 9 - 16 mg/dL [facility] Creatinine, Serum 0.97 0.5 - 1.4 mg/dL [facility] Estimated Glomerular Filt Rate 59 [facility] Comment:Chronic Kidney Disea se: Estimated GFR < 60 mL/min/1.50g6Uenkbh Kidney Disease: Estimated GFR < 15 mL/min/1.73m2 Glucose 192(H) 60 - 115 mg/dL [facility] Calcium 10.8(H) 8.4 - 10.2 mg/dL [facility] Bilirubin, Total 0.2 0.0 - 1.0 mg/dL [facility] Aspartate Amino Transferase 23 5 - 31 U/L [facility] Alanine Aminotransferase 18 0 - 31 U/L [facility] Total Protein 7.7 6.5 - 8.0 g/dL [facility] Albumin Level 4.0 3.5 - 5.0 g/dL [facility] Alkaline Phosphatase 127(H) 39 - 117 U/L [facility] Blood Venous blood specimen / Unknown 02/12/2025 10:30 AM EDT 02/12/2025 2:09 PM EDT us Juliet Adhikari MD LAB BLOOD ORDERABLES Final Result [facility] [address] [place] [address] [phone] * Referral to Hand Surgery (02/12/2025) us Juliet Adhikari MD OUTPATIENT REFERRAL ORDERAB LES Final Result * (ABNORMAL) Urinalysis, Complete, with Reflex to Culture (01/09/2025 8:57 AM EDT) Color Urine Yellow [facility] Appearance Urine Clear [facility] PH 5.0 5.0 - 9.0 [facility] Glucose Urine UA Negative Negative mg/dL [facility] Urine Blood Negative Negative [facility] Specific [place] - Urine >=1.030(H) 1.005 - 1.025 [facility] Urine Protein 100 (2+)(A) Neg-Trace mg/dL [facility] Urine Ketones Negative Negative mg/dL [facility] Nitrite Urine Negative Negative [facility] Leukocyte Esterase Urine Negative Negative [facility] RBC Urine 0-2 0 - 2 /HPF [facility] Urine WBC 6-10(A) 0 - 5 /HPF [facility] Urine Squamous Epithelial Cell 0-2 0 - 2 /HPF [facility] Urine Bacteria None Seen None Seen [facility] Hyaline Casts, Urine 0-2 0 - 2 /LPF [facility] 01/09/2025 8:57 AM EDT 01/09/2025 9:02 AM EDT Narrative [facility] - 01/09/2025 9:16 AM EDT Urine, Clean Catch us Generic External Data Provider LAB URINE ORDERAB LES Final Result Performing Organization Address City/State/[facility] Co de Phone Number [facility] [address] [place] [phone] * CT Abdomen Pelvis w/ Contrast (01/09/2025 7:45 AM EDT) Anatomical Region Laterality Modality Body, Pelvis, Abdomen Computed T omography 01/09/2025 7:45 AM EDT Narrative 01/09/2025 8:25 AM EDT [address] [address] [address] Scan Report Signed Patient: Jannet Alvarez MR#: [id number] : 1965 Acct:[id number] Age/Sex: 59 / F ADM Date: 01/09/25 Loc: HO.ED Attending Dr: Ordering Physician: Alexei Iniguez MD Date of Service: 01/09/25 Procedure(s): CT abdomen pelvis w IV con Accession Number(s): [id number] cc: Juliet Adhikari MD; Alexei Iniguez MD Report Number: [id number]: Total DLP = 0.00 mGy-cm Reason for [...] 01/09/25 0822 DD/ 0745 TD/TT: 01/09/25 0753 Manufacturing Manager: Procedure Note Hernandezter, Image - 01/09/[address] [address] [address] Scan Report Signed Patient: Dyana Alvarez#: [id number] : 1965Acct:[id number] Age/Sex: 59 / FADM Date: 01/09/25 Loc: HO.ED Attending Dr: Ordering Physician: Alexei Iniguez MD Date of Service: 01/09/25 Procedure(s): CT abdomen pelvis w IV con Accession Number(s): [id number] cc: Juliet Adhikari MD; Alexei Iniguez MD Report Number: [id number]: Total DLP = 0.00 mGy-cm Reason for [...] OV> 01/09/25 0822 DD/ 0745 TD/TT: 01/09/25 0754 Manufacturing Manager: [facility] External Provider IMG CT PROCEDURES Final Result * Culture, Urine, Routine (01/09/2025 12:00 AM EDT) Urine Urine specimen obtained by clean catch procedure / Unknown 01/09/2025 01/09/2025 Comment:[facility] - 01/10/2025 10:22 AM EDT Urine Culture No growth. Specimen Source: Urine clean catch Generic External Data Provider LAB MICROBIOLOGY - GENERAL ORDERABLES Final Result Performing Organization Address [facility] Co de Phone Number [facility] [address] [place] [phone] * (ABNORMAL) Glucose, Whole Blood (01/04/2025 2:17 PM EDT) Glucose, Whole Blood 412(HH) 60 - 115 mg/dL [facility] Comment:METER #: [id number] 0Testing performed in the Endocrinology Department [address] , [address], [facility]. 01/04/2025 2:17 PM EDT 01/04/2025 2:22 PM EDT Generic External Data Provider LAB BLOOD ORDERAB LES Final Result Performing Organization Address [facility] Co de Phone Number [facility] [address] [place] [phone] * (ABNORMAL) POCT Glucose (12/21/2024 2:45 PM EDT) [facility] Glucose Blood, POC 227(A) 60 - 200 mg/dL QC Media Lot # [id number] Lot# Expiration Date [id number] Comment:random Blood Capillary blood specimen / Unknown 12/21/2024 2:45 PM EDT Juliet Adhikari MD POINT OF CARE TEST ENTER/ED IT ORDERABLES Final Result * (ABNORMAL) POCT Hgb A1c (12/21/2024 2:44 PM EDT) Hemoglobin A1C 10.0(A) 4.0 - 5.7 % QC Media Lot # [id number] Lot# Expiration Date [id number] Blood 12/21/2024 2:44 PM EDT us Juliet [...] along with historic and current clinical information. Meat Scrubber : SEE COMMENT [facility] Comment: DCR, CT(ASCP) CT screening location: [place] [address] Infection Shift in vaginal allie suggestive of bacterial vaginosis. [facility] Interpretation/R esult: Negative for intraepithelial lesion or malignancy. [facility] LMP: NONE GIVEN [facility]OUND[facility] N [...] [place] LAB PATHOLOGY ORDERABLES Final Result [facility] [address] * HPV mRNA E6/E7 (09/02/2020 1:57 PM EDT) HPV nRNA E6/E7 Not Detected Not Detected [facility] Comment: Methodology: Licensing Court Magistrate-Mediated Amplification This assay detects E6/E7 viral messenger RNA (mRNA) from 14 high-risk HPV types (16,18,31,33,35,39,45,51,52,56,58,59,66,68). The analytical performance characteristics of this assay have been determined by [employer]. The modifications have not been cleared or approved by the FDA. This assay has been validated pursuant to the CLIA regulations and is used for clinical purposes. For additional information, please refer to http://education.[employer]/faq/PNL279h4 (This link if provided for information/ educational purposes only.) 09/02/2020 1:57 PM EDT us Kylee [place] LAB BLOOD ORDERABLES Colleen bailey Result [facility] [address] from Last 3 Months or Most [...] 02/27/2025 Patient has diabetic neuropathy 02/27/2025 Insurance [facility] ONE CARE < 65 [place] [id number] [place] AD[place] Care Teams Casing Man Relationship Specialty Start Date End Date Juliet Adhikari MD [address] [place] [phone] PCP - General Internal Medicine 02/15/12
--- OUTSIDE RECORDS SUMMARY | 2025-03-12 15:06 | XMS_ITS | Encounter Summary ---
Author Organization [employer] Address [address] [place] [phone] Care Team Providers Care Butter Wrapper Name Role Phone Juliet Adhikari MD Primary Care Provider [phone] Reason for Visit * Reason Onset Date Comments Nurse Triage 06/02/2023 Encounter Details Date Type Department Care Team ([facility] st Contact Info) Description 06/02/2023 Telephone [facility] [address] [place], [place] [phone] Juliet Adhikari MD [address] [place], [place] [phone] Nurse Triage Social History Tobacco Use Types [...] Appt. Made for 06/03/23 at 120pm in [facility] but will send this note to team [...] Appt made for 06/03/23 at 120pm in [facility]. Video visit not offered Positive Triage Questions: * Severe sinus pain * Severe headache * Nasal discharge present > 10 days *thick green nasal discharge with blood mixed in. * Lots of coughing * All higher-acuity triage questions were negative Care Advice Discussed: * Reassurance and Education - Colds and Sinus Congestion * Nasal Washes for a Stuffy Nose * Nasal Washes - [id number] Instructions * Hydration * Telephone Encounter - Carmelita Wayne - 06/02/2023 1:14 PM EST Symptom: Sinus Symptoms Outcome: Schedule an urgent appointment (within 1 hour) or talk to a nurse or provider soon Reason: Severe headache The caller accepted this outcome Please contact pt at [phone] documented in this encounter Plan of Treatment Not on file documented as of this encounter Visit Diagnoses Not on filedocumented in this encounter Additional Health Concerns Assessment Noted Time PHQ-9 Depression Total Score: 12 023 9:26 AM EDT documented as of this encounter Care Teams Butter Wrapper Relationship Specialty Start Date End Date Juliet Adhikari MD [address] [place] [phone] PCP - General Internal Medicine 02/15/12 documented as of this encounter
--- OUTSIDE RECORDS SUMMARY | 2025-03-12 15:06 | XMS_ITS | Encounter Summary ---
Author Organization [employer] Address [address] [place] [address] [place] [address] Care Team Providers Care Recruitment And Outreach Assistant Name Role Phone Juliet Adhikari MD Primary Care Provider [phone] Reason for Visit * Reason Comments Med Change Request Encounter Details Date Type Department Care Team ([facility] Contact Info) Description 05/12/2022 Refill [facility] [address] [place], [place] [phone] Juliet Adhikari MD [address] [place], [place] [phone] Diabetic nephropathy associated with type 2 diabetes mellitus (CMS/[facility]) Social History Tobacco Use Types [...] (HCC) documented in this encounter Care Teams Recruitment And Outreach Assistant Relationship Specialty Start Date End Date Juliet Adhikari MD [address] [place] [phone] PCP - General Internal Medicine 02/15/12 documented as of this encounter
--- OUTSIDE RECORDS SUMMARY | 2025-03-12 15:06 | XMS_ITS | Encounter Summary ---
Author Organization [employer] Address [address] [place] [address] 7 [place] [address] Care Team Providers Care Barn Operator Name Role Phone Juliet Adhiakri MD Primary Care Provider [phone] Encounter Details Date Type Department Care Team ([facility] Contact Info) Description 11/22/2022 Orders Only [facility] [address] [place], [place] [phone] Juliet Adhikari MD [address] [place], [place] [phone] Positive PPD (Primary Dx) Social History Tobacco [...] documented as of this encounter Care Teams Barn Operator Relationship Specialty Start Date End Date Juliet Adhikari MD [address] [place] [phone] PCP - General Internal Medicine 02/15/12 documented as of this encounter
--- OUTSIDE RECORDS SUMMARY | 2025-03-12 15:06 | XMS_ITS | Encounter Summary ---
Author Organization [employer] Address [address] [place] [address] [address] [place] [address] Care Team Providers Care Commercial Fisher Name Role Phone Juliet Adhikari MD Primary Care Provider [phone] Reason for Visit * Reason Comments Med Change Request Encounter Details Date Type Department Care Team ([facility] Contact Info) Description 12/21/2024 Refill [facility] PEDS [address] [place], [place] [phone] Juliet Adhikari MD [address] [place], [place] [phone] Carpal tunnel syndrome of right wrist Social [...] documented as of this encounter Care Teams Commercial Fisher Relationship Specialty Start Date End Date Juliet Adhikari MD [address] [place] [phone] PCP - General Internal Medicine 02/15/12 documented as of this encounter
--- OUTSIDE RECORDS SUMMARY | 2025-03-12 15:06 | XMS_ITS | Clinical Summary ---
Author Organization [facility] Address [address] [facility] [address] [place], [place] [phone] Phone Care Team Providers Care Acetaldehyde Converter Operator Name Role Phone Pcp, Unknown Primary Care [...] Insurance ONE CARE MEDICARE REPLACEMENT [place] CARMICHAEL [id number] Care Teams Acetaldehyde Converter Operator Relationship Specialty Start Date End Date Pcp, Unknown PCP - General 01/29/24 Additional Source Comments The information contained in this document represents components of the legal health record. It is not the complete legal health record.[facility]
--- OUTSIDE RECORDS SUMMARY | 2025-03-12 15:06 | XMS_ITS | Encounter Summary ---
Author Organization [employer] Address [address] [place] [address] Care Team Providers Care Owner Name Role Phone Juliet Adhikari MD Primary Care Provider [phone] Reason for Visit * Reason Onset Date Comments FYI 03/16/2023 Encounter Details Date Type Department [facility] Team ([facility] Contact [facility] Description 03/16/2023 Telephone [facility] MED [facility] PEDS [address] [place], [place] [phone] Juliet Adhikari MD [address] [place] [address] FYI Social History Tobacco Use Types Packs/Day [...] documented as of this encounter Care Teams Owner Relationship Specialty Start Date End Date Juliet Adhikari MD [address] [place] [phone] PCP - General Internal Medicine 02/15/12 documented as of this encounter
--- OUTSIDE RECORDS SUMMARY | 2025-03-12 15:06 | XMS_ITS | Encounter Summary ---
Author Organization [employer] Address [address] [facility] 7 [place] [address] Care Team Providers Care Bed Control Specialist Name Role Phone Juliet Adhikari MD Primary Care Provider [phone]- [phone] Encounter Details Date Type Department Care Team (Late st Contact Info) Description 05/07/2022 Orders Only [facility] [address] [place] [address] Juliet Adhikari MD [address] [place], [place] [phone] Type 2 diabetes mellitus with diabetic polyneuropathy, [...] polyneuropathy, with long-term current use of insulin ([facility]) BASIC METABOLIC PANEL Routine 09/09/2022 2:33 PM EDT Type 2 diabetes mellitus with diabetic polyneuropathy, with long-term current use of insulin ([facility]) CBC WITH AUTO DIFFERENTIAL Routine 08/25/2022 7:28 PM EDT Type 2 diabetes mellitus with diabetic polyneuropathy, with long-term current use of insulin ([facility]) BASIC METABOLIC PANEL Routine 08/25/2022 7:28 PM EDT Type 2 diabetes mellitus with diabetic polyneuropathy, with long-term current use of insulin ([facility]) GLUCOSE, WHOLE BLOOD Routine 08/25/2022 7:21 PM EDT Type 2 diabetes mellitus with diabetic polyneuropathy, with long-term current use of insulin ([facility]) documented in this encounter Results * High Sensitivity Troponin I (09/09/2022 2:33 PM EDT) [facility] TROPONIN I HIGH SENSITIVITY 4.4 <3.5 - 17.0 ng/L [facility] Comment:The Lux high sens itivity Troponin-I results should beused in conjunction with other diagnostic information suchas ECG, clinical observations and information, and patientsymptoms to aid in the diagnosis of ID. 09/09/2022 2:33 PM EDT 09/09/2022 2:37 PM EDT us [facility] External Provider LAB BLO OD ORDERABLES Final Result [facility] [address] [place] [phone] * (ABNORMAL) Basic Metabolic Panel (09/09/2022 2:33 PM EDT) Sodium 137 135 - 145 mmol/L [facility] Potassium 4.5 3.3 - 5.1 mmol/L [facility] Chloride 106 96 - 108 mmol/L [facility] Carbon Dioxide 22 22 - 29 mmol/L [facility] Anion Gap 14 12 - 20 [facility] Urea Nitrogen (BUN) 15 9 - 16 mg/dL [facility] Creatinine, Serum 1.08 0.5 - 1.4 mg/dL [facility] Creatinine Clr Calc Pharmacy 61.6 [facility] Comment:Provided height and weight: 162.56 cm,87.9 kg.eGFR (calculated from the MDRD study equation) and eCrCl(calculated from the Cockcroft-Gault equation) are based ondifferent parameters and may not yield comparable results.If eCrCl result is absurd, please check patient'sheight/weight. Estimated Glomerular Filt Rate 52 [facility] Comment:NOTE: For -Am erican individuals, multiply the result by 1.210.Chronic Kidney Disease: Estimated GFR < 60 mL/min/1.66h3[place]aq[place] Kidney Disease: Estimated GFR < 15 mL/min/1.73m2 Glucose 398(HH) 60 - 115 mg/dL [facility] Comment:Critical value for G LUR: Results called to and read backby: SCIARUD Person calling: JAROD Date: 09/09/22 Time: 1457 Calcium 9.8 8.4 - 10.2 mg/dL [facility] 09/09/2022 2:33 PM EDT 09/09/2022 2:37 PM EDT us [facility] External Provider LAB BLO OD ORDERABLES Final Result [facility] [address] [place] [phone] * (ABNORMAL) CBC auto differential (09/09/2022 2:33 PM EDT) White Blood Count 10.6 4.8 - 10.8 X10*3/uL [facility] Red Blood Count 4.58 4.20 - 5.50 X10*6/uL [facility] Hemoglobin 14.8 12.0 - 16.0 g/dl [facility] Hematocrit 43.1 37.0 - 47.0 % [facility] Mean Corpuscular Volume 94.1 80.0 - 98.0 fL [facility] Mean Corpuscular Hemoglobin 32.3 27.0 - 33.0 pg [facility] Mean Corpuscular HGB Conc 34.3 31.0 - 35.0 g/dl [facility] Red Cell Distribution Width 12.6 11.0 - 16.0 % [facility] Platelet Count 196 160 - 400 X10*3/uL [facility] Mean Platelet Volume 11.5 9.4 - 12.3 fL [facility] Neutrophils Percent Auto 67.8 45 - 73 % [facility] Imm Gran Pct Auto 0.6(H) 0.0 - 0.4 % [facility] Lymphocytes Percent Auto 23.2 20 - 40 % [facility] Monocytes Percent Auto 6.8 2 - 11 % [facility] Eosinophils Percent Auto 1.1 0 - 4 % [facility] Basophils Percent Auto 0.5 0 - 2 % [facility] NRBC Pct Auto 0.0 0.0 - 0.2 /100WBC [facility] Neutrophils Absolute Auto 7.2 2.0 - 8.3 x10*3/uL [facility] Imm Gran Abs Auto 0.06(H) 0.00 - 0.03 X10*3/uL [facility] Lymphocytes Absolute Auto 2.5 1.2 - 4.9 X10*3/uL [facility] Monocytes Absolute Auto 0.7 0.1 - 1.2 X10*3/uL [facility] Eosinophils Absolute Auto 0.1 0.0 - 0.4 X10*3/uL [facility] Basophils Absolute Auto 0.1 0.0 - 0.2 X10*3/uL [facility] NRBC Abs Auto 0.000 0.0 - 0.012 X10*3/uL [facility] 09/09/2022 2:33 PM EDT 09/09/2022 2:37 PM EDT [facility] External Provider LAB BLO OD ORDERABLES Final Result [facility] [address] [place] [phone] [phone] * (ABNORMAL) Basic Metabolic Panel (08/25/2022 7:28 PM EDT) Sodium 133(L) 135 - 145 mmol/L [facility] Potassium 4.4 3.3 - 5.1 mmol/L [facility] Chloride 103 96 - 108 mmol/L [facility] Carbon Dioxide 17(L) 22 - 29 mmol/L [facility] Anion Gap 17 12 - 20 [facility] Urea Nitrogen (BUN) 23(H) 9 - 16 mg/dL [facility] Creatinine, Serum 1.32 0.5 - 1.4 mg/dL [facility] Creatinine Clr Calc Pharmacy 52.6 [facility] Comment:Provided height and weight: 162.56 cm,95.254 kg.eGFR (calculated from the MDRD study equation) and eCrCl(calculated from the Cockcroft-Gault equation) are based ondifferent parameters and may not yield comparable results.If eCrCl result is absurd, please check patient'sheight/weight. Estimated Glomerular Filt Rate 41 [facility] Comment:NOTE: For -Am erican individuals, multiply the result by 1.210.Chronic Kidney Disease: Estimated GFR < 60 mL/min/1.68w7[place]leeng Kidney Disease: Estimated GFR < 15 mL/min/1.73m2 Glucose 509(HH) 60 - 115 mg/dL [facility] Comment:Critical value for t est(s): GLUR Results called to and readback by: ROSANNA Person calling: JOSHUA Date: 08/25/22 Time:2018 Calcium 10.0 8.4 - 10.2 mg/dL [facility] 08/25/2022 7:28 PM EDT 08/25/2022 7:31 PM EDT us [facility] External Provider LAB BLO OD ORDERABLES Final Result [facility] [address] [place] [phone] * CBC auto differential (08/25/2022 7:28 PM EDT) White Blood Count 9.1 4.8 - 10.8 X10*3/uL [facility] Red Blood Count 4.49 4.20 - 5.50 X10*6/uL [facility] Hemoglobin 14.2 12.0 - 16.0 g/dl [facility] Hematocrit 41.4 37.0 - 47.0 % [facility] Mean Corpuscular Volume 92.2 80.0 - 98.0 fL [facility] Mean Corpuscular Hemoglobin 31.6 27.0 - 33.0 pg [facility] Mean Corpuscular HGB Conc 34.3 31.0 - 35.0 g/dl [facility] Red Cell Distribution Width 12.4 11.0 - 16.0 % [facility] Platelet Count 182 160 - 400 X10*3/uL [facility] Mean Platelet Volume 11.7 9.4 - 12.3 fL [facility] Neutrophils Percent Auto 60.5 45 - 73 % [facility] Imm Gran Pct Auto 0.3 0.0 - 0.4 % [facility] Lymphocytes Percent Auto 28.8 20 - 40 % [facility] Monocytes Percent Auto 7.9 2 - 11 % [facility] Eosinophils Percent Auto 2.1 0 - 4 % [facility] Basophils Percent Auto 0.4 0 - 2 % [facility] NRBC Pct Auto 0.0 0.0 - 0.2 /100WBC [facility] Neutrophils Absolute Auto 5.5 2.0 - 8.3 x10*3/uL [facility] Imm Gran Abs Auto 0.03 0.00 - 0.03 X10*3/uL [facility] Lymphocytes Absolute Auto 2.6 1.2 - 4.9 X10*3/uL [facility] Monocytes Absolute Auto 0.7 0.1 - 1.2 X10*3/uL [facility] Eosinophils Absolute Auto 0.2 0.0 - 0.4 X10*3/uL [facility] Basophils Absolute Auto 0.0 0.0 - 0.2 X10*3/uL [facility] NRBC Abs Auto 0.000 0.0 - 0.012 X10*3/uL [facility] 08/25/2022 7:28 PM EDT 08/25/2022 7:31 PM EDT [facility] External Provider LAB BLO OD ORDERABLES Final Result Performing Organization Address [facility]/ZIP Co de Phone Number [facility] [address] [place] [address] [phone] * (ABNORMAL) GLUCOSE, WHOLE BLOOD (08/25/2022 7:21 PM EDT) [facility] Signature Glucose, Whole Blood 481(HH) 60 - 115 mg/dL [facility] Comment:METER #: [id number] 1 08/25/2022 7:21 PM EDT 08/25/2022 7:25 PM EDT [facility] External Provider LAB BLO OD ORDERABLES Final Result Performing Organization Address [facility] Co de Phone Number [facility] [address] [place] [address] [phone] documented in this encounter Visit Diagnoses Diagnosis Type 2 diabetes mellitus with diabetic polyneuropathy, with long-term current use of insulin (HCC)- Primary documented in this encounter Care Teams Bed Control Specialist Relationship Specialty Start Date End Date Juliet Adhikari MD [address] [place] [phone] PCP - General Internal Medicine 02/15/12 documented as of this encounter
--- OUTSIDE RECORDS SUMMARY | 2025-03-12 15:06 | XMS_ITS | Encounter Summary ---
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
--- OUTSIDE RECORDS SUMMARY | 2025-03-12 15:06 | XMS_ITS | Encounter Summary ---
Author Organization [employer] Address [address] 7 [place] [address] Care Team Providers Care Card Checker Name Role Phone Juliet Adhikari MD Primary Care Provider [phone] Encounter Details Date Type Department Care Team ([facility] st Contact Info) Description 09/03/2024 Orders Only [facility] CHC MED & PEDS [address] [place], [place] [phone] Juliet Adhikari MD [address] [place], [place] [phone] Cyst, vulva (Primary Dx) Social History Tobacco [...] documented as of this encounter Care Teams Card Checker Relationship Specialty Start Date End Date Juliet Adhikari MD [address] [place] [phone] PCP - General Internal Medicine 02/15/12 documented as of this encounter
--- OUTSIDE RECORDS SUMMARY | 2025-03-12 15:06 | XMS_ITS | Clinical Summary ---
Author Organization [facility] Address [address] [address] Care Team Providers Care Fha Underwriter Name Role Phone Juliet Adhikari MD Primary Care Provider Allergies Active Allergy Reactions Criticality Noted Date Comments Penicillin V Other (see comments) 02/10/2021 Medications venlafaxine (EFFEXOR) 75 MG tablet Take 1 tablet by mouth 1 (one) time each day Active SITagliptin (Januvia) 100 MG tablet Take 1 tablet by mouth 1 (one) time each day Active metoclopramide (Reglan) 5 MG tablet Take 1 tablet by mouth 4 (four) times a day Active insulin detemir (Levemir) 100 UNIT/ML injection Active PenTips 32G X 4 MM misc 01/23/2021 Active insulin lispro (HumaLOG) 100 UNIT/ML injection Active cholecalciferol (VITAMIN D-3) 25 MCG (1000 UT) capsule Take 1 capsule by mouth 1 (one) time each day Active Dulaglutide (Trulicity) 0.75 MG/0.5ML solution pen-injector Active gabapentin (NEURONTIN) 400 MG capsule Take 1 capsule by mouth 3 (three) times a day Active glyBURIDE (DIABETA) 5 MG tablet Take 2 tablets by mouth 2 (two) times a day Active aspirin (ST TONE) 81 MG EC tablet Take 1 tablet by mouth 1 (one) time each day Active amLODIPine (Norvasc) 5 MG tablet Take 1 tablet by mouth 1 (one) time each day Active Active Problems Problem Noted Date Diagnosed Date 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 Chronic kidney disease stage 2 02/10/2021 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 Family History Medical History Relation Comments Diabetes Mother borderline Relation Status Comments Mother Social History Tobacco Use Types Packs/Day Years Used Date Smoking Tobacco: Every Day Cigarettes Alcohol Use Standard Drinks/Week Comments No 0 (1 standard drink = 0.6 oz pur e alcohol) Comments Unknown Sex and Gender Information Value Date Recorded Sex Assigned at Not on file Legal Sex Female 4:40 PM EST Gender Identity Not on file Sexual Orientation Not on file Plan of Treatment Health Maintenance Due Date Last Done Comments Breast Cancer Screening 1965 Pneumococcal Vaccine: 50+ Ye ars (2 of 2 - PCV) 08/20/2011 08/19/2010 Colorectal Cancer Screening: Annual FOBT 2013 Colorectal Cancer Screening: Colonoscopy 2013 Colorectal Cancer Screening: Sigmoidoscopy 2013 Diabetes: Ophthalmology Exam 05/18/2020 Diabetes: Pedal Pulse Checked 05/18/2020 Diabetes: Sensory Foot Exam 05/18/2020 Diabetes: Visual Foot Exam 05/18/2020 Diabetes: Hemoglobin A1C 02/02/2024 11/02/2023 Influenza Vaccine (#1) 2024 03/31/2021 Hepatitis B Vaccine Aged Out 06/25/2002 No longe r eligible based on patient's age to complete this topic Pneumococcal Vaccine: Peds ( 0 to 5 Years) and At-Risk Patients (6 to 49 Years) Discontinued 08/19/2010 Insurance Medicare Medicaid [place] Care Teams Fha Underwriter Relationship Specialty Start Date End Date Juliet Adhikari MD PCP - General 04/28/20
--- OUTSIDE RECORDS SUMMARY | 2025-03-12 15:06 | XMS_ITS | Encounter Summary ---
Author Organization [employer] Address [address] [place] [address] [address] [place] [address] Care Team Providers Care Principal Planner Name Role Phone Juliet Adhikari MD Primary Care Provider [phone] Encounter Details Date Type Department Care Team ([facility] Contact Info) Description 11/02/2022 Orders Only [facility] CHC MED & PEDS [address] [place], [place] [phone] Juliet Adhikari MD [address] [place], [place] [phone] Diabetic nephropathy associated with type 2 diabetes [...] documented as of this encounter Care Teams Principal Planner Relationship Specialty Start Date End Date Juliet Adhikari MD [address] [place] [phone] PCP - General Internal Medicine 02/15/12 documented as of this encounter
--- OUTSIDE RECORDS SUMMARY | 2025-03-12 15:06 | XMS_ITS | Encounter Summary ---
Author Organization [employer] Address [address] [place] [address] [address] [place] [address] Care Team Providers Care Terminal Gauger Name Role Phone Juliet Adhikari MD Primary Care Provider [phone] Reason for Visit * Reason Onset Date Comments referral 11/02/2022 Encounter Details Date Type Department Care Team (Late st Contact Info) Description 11/02/2022 Telephone [facility] ADULT DENTAL [address] [place] [address] Elidia Arce DDS [address] [place] [address] referral Social History Tobacco Use Types Packs/Day [...] be sent in to Maxillofacial surgery in [place] because they got her in as an [...] documented as of this encounter Care Teams Terminal Gauger Relationship Specialty Start Date End Date Juliet Adhikari MD [address] [place] [phone] PCP - General Internal Medicine 02/15/12 documented as of this encounter
--- OUTSIDE RECORDS SUMMARY | 2025-03-12 15:06 | XMS_ITS | Encounter Summary ---
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
== END 2025-03-12 12:01 | disposition home or self-care (01) ==
LOC: HO.HKA 11:23
PROVIDERS: PCP Internal Medicine; Referring Provider Internal Medicine; Visit Provider Internal Medicine Hypertension Specialist
DX: N18.2 Chronic kidney disease, stage 2 (mild) (principal)
CPT/HCPCS: 99204

== ENCOUNTER → 2025-03-12 11:22 | Outpatient (BNVA) | payer OTHER, SELFPAY | PROVIDERS: PCP Internal Medicine; Referring Provider Internal Medicine; Visit Provider Internal Medicine Hypertension Specialist | DX: N18.2 Chronic kidney disease, stage 2 (mild) (principal); I10 Essential (primary) hypertension; I95.9 Hypotension, unspecified; R80.9 Proteinuria, unspecified; E11.9 Type 2 diabetes mellitus without complications | CPT/HCPCS: 99202 ==